=== PATIENT | male | born 1965 | race Caucasian/White ===

== ENCOUNTER 2018-06-02 13:55 | Inpatient (IN) ==
--- NOTE | 2018-06-02 15:45 | XR ---
EXAM DATE: 06/02/2018 3:36 PM EDT AGE/SEX: 53 years / Male INDICATIONS: Chest pain and shortness of breath. CLINICAL DATA: This is the patient's initial encounter. Patient reports that signs and symptoms have been present for 2 days and indicates a pain score of 2/10. MEDICAL/SURGICAL HISTORY: Congestive heart failure. None. COMPARISON: No prior exams available for comparison. FINDINGS: Minimal airspace disease in the right lung base. Cardiomediastinal contours are within normal limits. Bony thorax is intact. CONCLUSION: 1. Minimal right lung base airspace disease which may reflect atelectasis. Electronically signed by: Elijah Granados MD 06/02/2018 3:44 PM EDT
[2018-06-02] MEDS ORDERED: Vancomycin Inj 1 GM/200 ML PIGGYBACK IV.SIG ONE (15:52)
[2018-06-02] MEDS ORDERED: Piperacil/Tazo 3.375 GM Premix 50 ML IV.SIG ONE (15:52)
[2018-06-02] MEDS ORDERED: Vancomycin Inj 1,000 MG in Sodium Chlor 0.9% Inj 250 ML IV.SIG ONE (16:00)
--- NOTE | 2018-06-02 16:01 | ED ---
HPI General Chief complaint: Extremity Problem,Nontraumatic Stated complaint: Medical Complaint Time Seen by Provider: 06/02/18 15:13 Source: patient and family Mode of arrival: wheelchair Limitations: no limitations History of Present Illness HPI Narrative: Patient is a 53-year-old male that presents today with a CC of "congestive heart failure" that has led to shortness of breath, fatigue, and extensive draining edema of the lower extremities bilaterally. Patient states that his symptoms started 5 days ago and the swelling of his lower legs and feet have progressively gotten worse over the past 5 days. The patient also states that he has pain in the back of both lower extremities from the knees to the toes. The patient denies chest pain. The patient has a past medical history significant for type-II diabetes mellitus and congestive heart failure. The patient states that he has not taken any of his regular medications for the past 3 weeks due to financial limitations. The patient is here today with a friend that insisted he been seen here in the ER. The patient is visiting from [id number] and has no current medical providers in the local area. Pain is 8/ 10 on the right foot specifically. Pain in the left foot as well but not as significant. Related Data Home Medications Medication Instructions Recorded Confirmed aspirin 81 mg PO DAILY 06/02/18 06/02/18 atorvastatin [Lipitor] 40 mg PO DAILY 06/02/18 06/02/18 bumetanide 2 mg PO DAILY 06/02/18 06/02/18 carvedilol [Coreg] 25 mg PO BID 06/02/18 06/02/18 chlorthalidone 25 mg PO DAILY 06/02/18 06/02/18 folic acid 1 mg PO DAILY 06/02/18 06/02/18 lisinopril 5 mg PO DAILY 06/02/18 06/02/18 Allergies Allergy/AdvReac Type Severity Reaction Status Date / Time No Known Allergies Allergy Unverified 06/02/18 15:19 Review of Systems ROS: all other systems reviewed are negative [facility] Medical History Medical History Congestive heart failure (Acute) Edema (Acute) Type 2 diabetes mellitus (Acute) Surgical History Surgical History Hx of cholecystectomy (Acute) Social History Social History Substance History: No History of Abuse Second Hand Smoke Exposure: No Smoking Status: Former smoker Tobacco Type: Cigarettes How Often Do You Have a Drink Containing Alcohol: Monthly or less Recent Travel in [facility] within the Last 8 Weeks: No Recent Out of Country Travel within the Last 8 Weeks: No Immunization History Tetanus Immunization: Unsure Hx Influenza Vaccine This Season: No Exam Narrative Exam Narrative: GENERAL: Well groomed. SKIN: Focused skin assessment warm/dry. HEAD: Atraumatic. Normocephalic. EYES: Pupils equal and round. No scleral icterus. No injection or drainage. ENT: No nasal bleeding or discharge. Mucous membranes pink and moist. NECK: Trachea midline. No JVD. CARDIOVASCULAR: Regular rate and rhythm. No murmur appreciated. RESPIRATORY: No accessory muscle use. Clear to auscultation. Breath sounds equal bilaterally. GASTROINTESTINAL: Abdomen soft, non-tender, nondistended. Hepatic and splenic margins not palpable. MUSCULOSKELETAL: No obvious deformities. No clubbing. No cyanosis. No edema. Full ROM of the upper and lower extremities. Has significant swelling and necrotic infected skin on the sole of the foot, with about 3 different lessions , rangind from 5 - 10 cm in diameter. with 2+ pitting edema. Erythema with foul smell. 2+ pulses best heard with doppler due to swelling. left leg 1+ pitting edema. NEUROLOGICAL: Awake and alert. No obvious cranial nerve deficits. Motor grossly within normal limits. Normal speech. PSYCHIATRIC: Appropriate mood and affect; insight and judgment normal. Course Initial Documented Vital Signs Temperature 98.6 F 06/02/18 13:57 Pulse Rate 109 H 06/02/18 13:57 Respiratory Rate 20 06/02/18 13:57 Blood Pressure 96/60 L 06/02/18 13:57 Pulse Oximetry 98 06/02/18 13:57 Last Documented Vital Signs Temperature 98.6 F 06/02/18 13:57 Pulse Rate 112 H 06/02/18 16:00 Respiratory Rate 18 06/02/18 16:00 Blood Pressure 112/59 L 06/02/18 16:00 Pulse Oximetry 96 06/02/18 16:00 Medical Decision Making JACOBY Attestation JACOBY supervised visit: Yes Attestation: I, Dr. Douglass, have reviewed the advance practice practitioner's documentation and am in agreement, met with the patient face to face, made the diagnosis, and the medical decision making was done by me. *My assessment and Findings: Gangrene with subcutaneous gas of the right lower extremity. Patient has a history of diabetes mellitus that has gone untreated for several months. Patient also has a history of CHF with an ejection fraction of 35%. He is noted to be in acute kidney injury with a white blood cell count greater than 19,000. He has been started on vancomycin and Zosyn. Podiatry has been consulted. [facility] Patient was made aware that there is a good chance he may lose his foot and possibly more. MDM Narrative Medical decision making narrative: 53 yo male that presents to the ED for evaluation of leg swelling with possible infection to right foot and SOB. labs and imaging ordered. Labs and imaging showed gas in foot, YOLY, eleveted CRP, ESR , WBC elevation and left shift and tachycardia. Started on zosyn and vancomycin and lasix. Case discussed with my attending who recommends speaking with parboiler. Dr Kiser made aware of findings and will come and evaluate for surgery. NPO. Case discussed with Dr Manzanares who agrees to admission to his service. Dr Kiser came and evaluated the patient and will take him to OR now. Paperwork filled. My attending Dr Douglass agrees with plan. patient agrees to proceed with plan. Medical Screen Exam Complete: Yes Emergency Medical Condition: Yes Differential Diagnosis Differential Diagnosis: gangrene vs cellulitis vs CHF exacerbation vs DVT Medical Records Medical records reviewed: Yes I reviewed the patient's medical records. Lab Data Lab results reviewed: Yes I reviewed the patient's lab results. Lab results narrative: CRP and ESR elevated BNP in the 1000s Result diagrams: 06/02/18 16:20 06/02/18 16:20 Lab Results 06/02/18 06/02/18 06/02/18 Range/Units 16:20 16:20 16:20 WBC 19.8 H (4.0-11.0) th/mm3 RBC 2.82 L (4.50-5.90) mil/mm3 Hgb 7.8 L (13.0-17.0) gm/dL Hct 23.6 L (39.0-51.0) % MCV 83.8 (80.0-100.0) fL MCH 27.7 (27.0-34.0) pg MCHC 33.1 (32.0-36.0) % RDW 16.7 (11.6-17.2) % Plt Count 430 (150-450) th/mm3 MPV 7.1 (7.0-11.0) fL Neut % (Auto) 95.6 H (16.0-70.0) % Lymph % (Auto) 2.9 L (9.0-44.0) % Terry % (Auto) 1.4 (0.0-8.0) % Eos % (Auto) 0.0 (0.0-4.0) % Baso % (Auto) 0.1 (0.0-2.0) % Neut # (Auto) 18.9 H (1.8-7.7) th/mm3 Lymph # (Auto) 0.6 L (1.0-4.8) th/mm3 Terry # (Auto) 0.3 (0.0-0.9) th/mm3 Eos # (Auto) 0.0 (0.0-0.4) th/mm3 Baso # (Auto) 0.0 (0.0-0.2) th/mm3 WBC Differential . Differential Comment Auto diff final ESR (0-20) mm/hr PT 13.1 H (9.8-11.6) sec INR 1.3 Ratio APTT 32.7 H (24.3-30.1) sec Sodium 132 L (136-145) meq/L Potassium 3.8 (3.5-5.1) meq/L Chloride 100 (98-107) meq/L Carbon Dioxide 19.0 L (21.0-32.0) meq/L Anion Gap 13 (5-15) meq/L BUN 71 H (7-18) mg/dL Creatinine 2.24 H (0.60-1.30) mg/dL Estimated GFR 31 L (>89) mL/min Random Glucose 189 H (74-106) mg/dL Lactic Acid (0.4-2.0) mmol/L Calcium 7.7 L (8.5-10.1) mg/dL Total Bilirubin 0.7 (0.2-1.0) mg/dL AST 25 (15-37) U/L ALT 15 (12-78) U/L Alkaline Phosphatase 175 H (45-117) U/L Total Creatine Kinase 66 (39-308) U/L Troponin I Less than 0.02 L (0.02-0.05) ng/mL C-Reactive Protein (0.00-0.30) mg/dL B-Natriuretic Peptide (0-100) pg/mL Total Protein 6.9 (6.4-8.2) g/dL Albumin 0.9 L (3.4-5.0) g/dL 06/02/18 06/02/18 06/02/18 Range/Units 16:20 16:20 16:20 WBC (4.0-11.0) th/mm3 RBC (4.50-5.90) mil/mm3 Hgb (13.0-17.0) gm/dL Hct (39.0-51.0) % MCV (80.0-100.0) fL MCH (27.0-34.0) pg MCHC (32.0-36.0) % RDW (11.6-17.2) % Plt Count (150-450) th/mm3 MPV (7.0-11.0) fL Neut % (Auto) (16.0-70.0) % Lymph % (Auto) (9.0-44.0) % Terry % (Auto) (0.0-8.0) % Eos % (Auto) (0.0-4.0) % Baso % (Auto) (0.0-2.0) % Neut # (Auto) (1.8-7.7) th/mm3 Lymph # (Auto) (1.0-4.8) th/mm3 Terry # (Auto) (0.0-0.9) th/mm3 Eos # (Auto) (0.0-0.4) th/mm3 Baso # (Auto) (0.0-0.2) th/mm3 WBC Differential Differential Comment ESR (0-20) mm/hr PT (9.8-11.6) sec INR Ratio APTT (24.3-30.1) sec Sodium (136-145) meq/L Potassium (3.5-5.1) meq/L Chloride (98-107) meq/L Carbon Dioxide (21.0-32.0) meq/L Anion Gap (5-15) meq/L BUN (7-18) mg/dL Creatinine (0.60-1.30) mg/dL Estimated GFR (>89) mL/min Random Glucose (74-106) mg/dL Lactic Acid 1.9 (0.4-2.0) mmol/L Calcium (8.5-10.1) mg/dL Total Bilirubin (0.2-1.0) mg/dL AST (15-37) U/L ALT (12-78) U/L Alkaline Phosphatase (45-117) U/L Total Creatine Kinase (39-308) U/L Troponin I (0.02-0.05) ng/mL C-Reactive Protein 17.60 H (0.00-0.30) mg/dL B-Natriuretic Peptide 1121 H (0-100) pg/mL Total Protein (6.4-8.2) g/dL Albumin (3.4-5.0) g/dL 06/02/18 06/02/18 Range/Units 16:20 16:20 WBC (4.0-11.0) th/mm3 RBC (4.50-5.90) mil/mm3 Hgb (13.0-17.0) gm/dL Hct (39.0-51.0) % MCV (80.0-100.0) fL MCH (27.0-34.0) pg MCHC (32.0-36.0) % RDW (11.6-17.2) % Plt Count (150-450) th/mm3 MPV (7.0-11.0) fL Neut % (Auto) (16.0-70.0) % Lymph % (Auto) (9.0-44.0) % Terry % (Auto) (0.0-8.0) % Eos % (Auto) (0.0-4.0) % Baso % (Auto) (0.0-2.0) % Neut # (Auto) (1.8-7.7) th/mm3 Lymph # (Auto) (1.0-4.8) th/mm3 Terry # (Auto) (0.0-0.9) th/mm3 Eos # (Auto) (0.0-0.4) th/mm3 Baso # (Auto) (0.0-0.2) th/mm3 WBC Differential Differential Comment ESR Greater than 140 H (0-20) mm/hr PT (9.8-11.6) sec INR Ratio APTT (24.3-30.1) sec Sodium (136-145) meq/L Potassium (3.5-5.1) meq/L Chloride (98-107) meq/L Carbon Dioxide (21.0-32.0) meq/L Anion Gap (5-15) meq/L BUN (7-18) mg/dL Creatinine (0.60-1.30) mg/dL Estimated GFR (>89) mL/min Random Glucose Cancelled (74-106) mg/dL Lactic Acid (0.4-2.0) mmol/L Calcium (8.5-10.1) mg/dL Total Bilirubin (0.2-1.0) mg/dL AST (15-37) U/L ALT (12-78) U/L Alkaline Phosphatase (45-117) U/L Total Creatine Kinase (39-308) U/L Troponin I (0.02-0.05) ng/mL C-Reactive Protein (0.00-0.30) mg/dL B-Natriuretic Peptide (0-100) pg/mL Total Protein (6.4-8.2) g/dL Albumin (3.4-5.0) g/dL Imaging Data Attestation: I personally reviewed and interpreted this imaging study as follows : Radiologist's impression: Chest X-Ray 06/02/18 15:19 CONCLUSION: 1. Minimal right lung base airspace disease which may reflect atelectasis. Venous Doppler Study 06/02/18 15:46 CONCLUSION: 1. No sonographic evidence of lower extremity DVT. 2. Bilateral lower extremity subcutaneous edema. 3. Multiple lymph nodes seen in both groins, some of which are abnormally enlarged. Recommend clinical correlation. Foot X-Ray 06/02/18 15:52 CONCLUSION: Extensive subcutaneous air. No bone fracture or dislocation ECG Data EKG Prior to Arrival: No Attestation: I personally reviewed and interpreted this ECG as follows: Interpretation: EKG shows sinus tachycardia with no sign of acute ishcemia. Read by me and attending. Discharge Plan Discharge Disposition Patient Disposition: 30 Still Patient Discharge Details Diagnosis: Gangrene, CHF (congestive heart failure), YOLY (acute kidney injury), Sepsis Physicians Team ED Provider: Ben Douglass ED Midlevel Provider: Anil Magana Primary Care Provider: Primary Care Chastity Ledesma Attending Provider: Jayden Manzanares Other Providers: Jean Dexter Discharge Interventions Interventions: Vital Signs Last Done: 06/02/18 16:00 Status ED Status: Admitted Patient
--- NOTE | 2018-06-02 16:25 | US ---
EXAM DATE: 06/02/2018 4:20 PM EDT AGE/SEX: 53 years / Male INDICATIONS: Bilateral leg swelling. CLINICAL DATA: This is the patient's initial encounter. Patient reports that signs and symptoms have been present for 1 month and indicates a pain score of 5/10. MEDICAL/SURGICAL HISTORY: . Bilateral leg swelling. None. COMPARISON: No prior exams available for comparison. TECHNIQUE: Venous ultrasound of both lower extremities was performed from the inguinal ligament to t he proximal calf. Real-time, color Doppler and spectral tracing, compression and augmentation techni ques were used. FINDINGS: Right Leg: Normal compression of the deep venous system from the inguinal region to the proximal chace f. No echogenic clot is seen. Normal response of the venous system to augmentation and respiration. Left Leg: Normal compression of the deep venous system from the inguinal region to the proximal calf . No echogenic clot is seen. Normal response of the venous system to augmentation and respiration. Other: Multiple lymph nodes seen in both groins, the largest measuring 5.5 x 1.9 x 4.4 cm on the rig ht. Bilateral lower extremity subcutaneous edema is noted. CONCLUSION: 1. No sonographic evidence of lower extremity DVT. 2. Bilateral lower extremity subcutaneous edema. 3. Multiple lymph nodes seen in both groins, some of which are abnormally enlarged. Recommend clinic al correlation. Electronically signed by: Maria Alejandra Lemus MD 06/02/2018 4:24 PM EDT
[2018-06-02 16:41] LABS: Baso % (Auto) 0.1 % (0.0-2.0); Hematocrit 23.6 % (39.0-51.0); Hemoglobin 7.8 gm/dL (13.0-17.0); Lymph # (Auto) 0.6 th/mm3 (1.0-4.8); Lymph % (Auto) 2.9 % (9.0-44.0); Mean Corpuscular HGB Conc 33.1 % (32.0-36.0); Mean Corpuscular Hemoglobin 27.7 pg (27.0-34.0); Mean Corpuscular Volume 83.8 fL (80.0-100.0); Mean Platelet Volume 7.1 fL (7.0-11.0); Mono # (Auto) 0.3 th/mm3 (0.0-0.9); Mono % (Auto) 1.4 % (0.0-8.0); Neut # (Auto) 18.9 th/mm3 (1.8-7.7); Neut % (Auto) 95.6 % (16.0-70.0); Platelet Count 430 th/mm3 (150-450); Red Blood Count 2.82 mil/mm3 (4.50-5.90); Red Cell Distribution Width 16.7 % (11.6-17.2); White Blood Count 19.8 th/mm3 (4.0-11.0)
[2018-06-02 16:52] LABS: Activated Partial Thrombo Time 32.7 sec (24.3-30.1); INR 1.3 Ratio; Prothrombin Time 13.1 sec (9.8-11.6)
--- NOTE | 2018-06-02 17:01 | XR ---
EXAM DATE: 06/02/2018 4:59 PM EDT AGE/SEX: 53 years / Male INDICATIONS: Right foot pain, swelling, open sores for 2 weeks CLINICAL DATA: This is the patient's initial encounter. Patient reports that signs and symptoms have been present for 2 weeks and indicates a pain score of 8/10. MEDICAL/SURGICAL HISTORY: None. None. COMPARISON: No prior exams available for comparison. FINDINGS: There is diffuse subcutaneous air throughout the right foot. No active ostial lysis is identified CONCLUSION: Extensive subcutaneous air. No bone fracture or dislocation Electronically signed by: Vernon Abraham MD 06/02/2018 5:00 PM EDT
[2018-06-02 17:08] LABS: Alanine Aminotransferase 15 U/L (12-78); Albumin 0.9 g/dL (3.4-5.0); Anion Gap 13 meq/L (5-15); Aspartate Aminotransferase 25 U/L (15-37); Blood Urea Nitrogen 71 mg/dL (7-18); Calcium 7.7 mg/dL (8.5-10.1); Chloride 100 meq/L (98-107); Glomerular Filtration Rate 31 mL/min (>89); Glucose,Random 189 mg/dL (74-106); Potassium 3.8 meq/L (3.5-5.1); Sodium 132 meq/L (136-145)
[2018-06-02 17:12] LABS: Alkaline Phosphatase 175 U/L (45-117); Total Protein 6.9 g/dL (6.4-8.2)
[2018-06-02 17:16] LABS: Creatine Kinase 66 U/L (39-308)
[2018-06-02] MEDS ORDERED: Bupivacaine PF 0.25% Inj 30 ML Vial ONE (17:20)
[2018-06-02] MEDS ORDERED: Etomidate Inj 20 MG/10 ML Ampul IV.PUSH ONE (17:43)
[2018-06-02] MEDS: Sod Chloride 0.9% Inj 1,000 ML IV.CONT SCH (17:56)
[2018-06-02] MEDS ORDERED: Bisacodyl 10 MG Supp RECTAL PRN (17:57)
[2018-06-02] MEDS ORDERED: Acetaminophen 325 MG Tablet PO PRN (17:57)
[2018-06-02] MEDS ORDERED: Phenylephrine/NS 1000 MCG/10ML Syringe IV.PUSH ONE (18:02)
[2018-06-02] MEDS ORDERED: Vancomycin Consult Pharmacy OTHER PRN (18:11)
[2018-06-02] MEDS ORDERED: Norepinephrine Inj 4 MG/4 ML Ampul ONE ×2 (18:38→19:55)
[2018-06-02] MEDS ORDERED: Sodium Bicarbonate 8.4% Inj 50 MEQ/50 ML Syringe ONE ×2 (18:43→19:43)
[2018-06-02] MEDS ORDERED: Calcium Chloride Inj 1 GM/10 ML Syringe ONE (18:44)
[2018-06-02] MEDS ORDERED: Propofol 1000 mg/100 ml Inj 1,000 MG/100 ML BOTTLE ONE (19:25)
[2018-06-02 19:30] LABS: ABG Base Excess -14.5 mmol/L (-2-2); ABG PCO2 45 mmHg (38-42); ABG PO2 111 mmHG (61-120)
--- NOTE | 2018-06-02 19:50 | P.BOP ---
- Preoperative Diagnosis (1) Gas gangrene of foot - Postoperative Diagnosis (1) Gas gangrene of foot Date of procedure: 06/02/18 Procedure: Incision drainage debridement foot ankle and distal leg, right Anesthesia: GETA Surgeon: Jose M Kiser DPM Estimated blood loss (mL): 50 (ml) Condition: critical Disposition: ICU (Spoke directly with critical care admitting regarding patient's condition)
[2018-06-02] MEDS ORDERED: Vancomycin Inj 2,000 MG in Sodium Chlor 0.9% Inj 500 ML IV.SIG ONE (20:00)
[2018-06-02] MEDS ORDERED: fentaNYL Citrate Inj 100 MCG/2 ML Ampul ONE (20:11)
--- NOTE | 2018-06-02 20:22 | P.CONCC ---
History of Present Illness Primary Care Provider: No Primary Care Physician History of Present Illness: 53-year-old male presented to emergency department today with complaints of shortness of breath, fatigue, and extensive draining edema of the lower extremities bilaterally. Per chart review his symptoms started 5 days ago and the swelling of his lower legs and feet have progressively gotten worse over the past 5 days. The patient also has had pain in the back of both lower extremities from the knees to the toes. He denied chest pain. He has a history of type-II diabetes mellitus and congestive heart failure. He has not taken any of his regular medications for the past 3 weeks due to financial limitations. During the examination in the emergency department he was found to have gangrene of the right foot and was emergently taken to operating room for an incision and drainage with debridement of foot and ankle. Postoperatively he remains intubated and was admitted to ICU for critical care management. Review of Systems unobtainable due to endotracheal tube PMFSH - History History Provided By: Patient - Medical History Medical History: Medical History (Last Reviewed 06/02/18 @ 16:26 by DEMARIO Marmolejo) Congestive heart failure Edema Type 2 diabetes mellitus - Surgical History Surgical History: Surgical History (Last Reviewed 06/02/18 @ 16:26 by DEMARIO Marmolejo) Hx of cholecystectomy - Tobacco History Second Hand Smoke Exposure: No Tobacco Use In Past 30 Days: No Smoking Status: Former smoker Tobacco Type: Cigarettes - Alcohol History How Often Do You Have a Drink Containing Alcohol: Monthly or less - Substance Use History Substance History: No History of Abuse - Travel History Recent Travel in the [place] Within the Last 8 Weeks: No Recent Travel Out of the Country Within the Last 8 Weeks: No - Immunization History Tetanus Immunization: Unsure Hx Influenza Vaccine This Season: No Medications and Allergies Active Medications: Active Medications Acetaminophen (Tylenol) 650 mg PO Q4H PRN PRN Reason: Temp > 100.4 Al Hydroxide/Mg Hydroxide (Milk Of Magnesia Liq) 30 ml PO Q12H PRN PRN Reason: Mild Constipation Bisacodyl (Dulcolax Supp) 10 mg RECTAL DAILY PRN PRN Reason: SEVERE CONSITIPATION Dextrose (D50w Vial) 50 ml IV.PUSH UNSCH PRN PRN Reason: PER HYPOGLYCEMIA PROTOCOL Glucagon (Glucagon Inj) 1 mg OTHER UNSCH PRN PRN Reason: for Hypoglycemia Protocol Sodium Chloride (Ns Inj) 1,000 mls @ 42 mls/hr IV.CONT .[id number] LINDA Last Admin: 06/02/18 17:56 Dose: 42 mls/hr Piperacillin/Tazobactam/Dextrose (Zosyn 2.25 Gm Premix) 50 mls @ 100 mls/hr IV.SIG Q6H LINDA Vancomycin HCl 2,000 mg/ (Sodium Chloride) 520 mls @ 250 mls/hr IV.SIG ONCE ONE Stop: 06/02/18 22:04 Sodium Chloride (Ns Inj) 1,000 mls @ 0 mls/hr IV.SIG BOLUS LINDA Stop: 06/04/18 20:31 Insulin Aspart (Novolog Insulin Correctional Sugar Inj) 0 unit SQ ACHS LINDA; Protocol Lactulose (Lactulose Liq) 30 ml PO DAILY PRN PRN Reason: SEVERE CONSITIPATION Ondansetron HCl (Zofran Inj) 4 mg IV.PUSH Q6H PRN PRN Reason: NAUSEA OR VOMITING Pharmacy Profile Note (Vancomycin Consult Pharmacy) 1 each OTHER UNSCH PRN PRN Reason: Pharmacy to dose Senna/Docusate Sodium (Bee-Colace) 1 tab PO BID LINDA Sennosides (Senokot) 17.2 mg PO Q12H PRN PRN Reason: Moderate Constipation Sodium Chloride (Ns Flush) 2 ml IV.FLUSH UNSCH PRN PRN Reason: FLUSH AFTER USING IV ACCESS Allergies Allergy/AdvReac Type Severity Reaction Status Date / Time No Known Allergies Allergy Unverified 06/02/18 15:19 Home Medications Medication Instructions Recorded Confirmed Type aspirin 81 mg PO DAILY 06/02/18 06/02/18 History atorvastatin [Lipitor] 40 mg PO DAILY 06/02/18 06/02/18 History bumetanide 2 mg PO DAILY 06/02/18 06/02/18 History carvedilol [Coreg] 25 mg PO BID 06/02/18 06/02/18 History chlorthalidone 25 mg PO DAILY 06/02/18 06/02/18 History folic acid 1 mg PO DAILY 06/02/18 06/02/18 History lisinopril 5 mg PO DAILY 06/02/18 06/02/18 History Physical Exam Vital signs: Vital Signs 06/02/18 13:57 06/02/18 16:00 06/02/18 20:11 Temperature 98.6 F Pulse Rate 109 H 112 H Respiratory Rate 20 18 14 Blood Pressure 96/60 L 112/59 L Pulse Oximetry 98 96 99 Intake & Output 06/02/18 06/02/18 06/03/18 06:59 18:59 06:59 Intake Total 700 / 700 Output Total 50 / 50 Balance 650 / 650 Weight 74.843 kg Intake: Anesthesia Amount 700 / 700 Output: Estimated Blood Loss 50 / 50 - Constitutional moderate distress - Routine HEENT Exam Head: Present: normocephalic, atraumatic Eye: Present: PERRL, normal accommodation ENT: Present: mucous membranes moist - Routine Neck Exam Present: supple. Absent: JVD, carotid bruit - Routine Respiratory Exam Present: patient mechanically ventilated. Absent: accessory muscle use, rhonchi , stridor, wheezes, crackles - Routine Cardiovascular Exam Present: RRR, S1, S2 - Routine Abdominal Exam Present: soft, normoactive bowel sounds. Absent: tenderness, distended - Routine Extremities Exam Present: edema. Absent: cyanosis, clubbing Comments: There is post IND debridement of the right foot and ankle - Routine Skin Exam Present: gangrene. Absent: cyanosis, erythema - Routine Neurological Exam Present: moving all extremities Sedated and intubated - Urinary Catheter Management Indwelling Urethral Catheter Cath placed during this visit: yes Reason for continuing: Hourly intake/output Insertion date: 06/02/18 Insertion time: 19:38 Septic Shock Reassessment Septic shock perfusion: reassessment completed Assessment and Plan - Assessment and Plan Plan: Respiratory failure -Postoperative -Vent bundle -DuoNeb's as needed -SBT and attempt to wean off but hemodynamically stable Sepsis -Gangrene of the right foot -Broad-spectrum antibiotic -Follow-up cultures and de-escalate -Status post I&D and debridement -Infectious disease consultation Anemia -Blood loss anemia -Transfuse 3 units of PRBC now -Monitor H&H and transfuse to keep hemoglobin above 8 Hypotension -Sepsis -Blood loss -IV fluid resuscitation -Blood transfusion -Levophed as needed to keep MAP above 65 Acute kidney injury -Strict I's and O's -IV fluid hydration -Monitor electrolytes and creatinine level Diabetes mellitus -Insulin sliding scale DVT GI prophylaxis -Teds SCDs -Heparin subcu -Pepcid 35 minutes of critical
[2018-06-02] MEDS: Sod Chloride 0.9% Inj 1,000 ML IV.SIG SCH ×3 (20:45→23:00)
[2018-06-02] MEDS: fentaNYL 10 mcg/mL Premix Drip 2,500 MCG/250 ML BAG IV.SIG PRN (20:50)
[2018-06-02] MEDS: Midazolam 50 MG/50 ML Inj 50 MG/50 ML BAG IV.CONT PRN (20:51)
[2018-06-02 21:21] LABS: ABG Base Excess -6.8 mmol/L (-2-2); ABG PCO2 33 mmHg (38-42); ABG PO2 152 mmHg (61-120)
--- NOTE | 2018-06-02 21:26 | MP ---
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 PROCEDURE PERFORMED: Expansile incision and drainage of foot, ankle and distal leg. INDICATIONS: The patient is critical, intubated, sedated, and will be admitted to the critical care team for further treatment of his multiple medical issues and sepsis. ESTIMATED BLOOD LOSS: Less than 50 mL ANESTHESIA: General. Culture taken. Tissue sent for pathological analysis. DISPOSITION: Admit to unit, likely will need more surgery, if not [id number] amputation. INJECTABLES: None. IMPLANTABLES: None. JUSTIFICATION FOR PROCEDURE: A 53-year-old male with an unclear history; however, it appears he has chronic ulcerations that have become a severe issue in the last 5 days. He admits noncompliance. The patient was educated on the severity of the infection, high likelihood of loss of limb, and possible complication from sepsis resulting in . The patient wished for limb salvage efforts therefore, we decided to move forward with an emergent incision and drainage. Vascular consultation was made for routine evaluation should the foot improve after the surgery. However, prognosis is poor. PROCEDURE IN DETAIL: Under mild sedation, the patient was brought to the operating room, placed on the operating table in supine position. Following the induction of general anesthesia, the right lower extremity was scrubbed, prepped and draped in the usual aseptic fashion. The foot was elevated and examined. There was noted to be a necrotic fourth and fifth digit, necrotic plantar lateral sulcus of the forefoot, necrotic plantar medial arch, edematous dorsum of the foot with obvious odor. An incision was made at the level of the fourth interspace coursing along the plantar arch up to the level of the medial malleolus. Expansile debridement took place down to the deep fascia. There was noted to be purulent traveling along the flexor digitorum longus and the flexor hallucis longus. This sheath was then opened at the level of the distal ankle. The posterior tibial tendon was then identified. There was noted to be purulence within the sheath. Further incision was made approximately 8 cm proximal to the ankle in which the tendon sheath was then explored and seemed to stop just at this level without any proximal spread of infection. Sharp and blunt dissection was carried down superficial to the fascia along the extensor tendons of the dorsum of the foot, the plantar aspect of the fat pad, along the lateral aspect of the fifth metatarsal, along the peroneal tendons. All of these tendon sheaths were explored. There was noted to be no proximal lateral spread at the level beyond the fifth metatarsal base. There was noted to be necrosis and purulence at the level of the distal hallux with likely osteomyelitic findings at this level. A secondary incision was then made over the first interspace dorsum of the foot. There was noted to be purulence in the abscess that was loculated with air bubbles within the first interspace. This was evacuated. All nonviable tissue was then debrided leaving exposed plantar fascia, posterior, lateral and medial ankle and the first interspace. The wound was then flushed with copious amounts of normal saline. Deep cultures taken. The wound was then packed open. Moderate bleeding noted however obvious clinical vascular disease present. The patient suffered brief hypotension within the operating room, ABG was performed by anesthesia, revealing an acidotic state. The patient received a Walters and an arterial line as well as a central line. I spoke with admitting ICU team regarding the patient's intraoperative findings and general medical condition. We will continue to follow along. However, limb salvage efforts have likely been exhausted at this point, high chance of needing a [id number] amputation pending the patient's medical progression. LITO Parker/kori , 08:02 PM , 08:09 PM JOSEPH
[2018-06-02] MEDS: Insulin NovoLOG Aspart Correctional Sugar Inj SQ SCH (21:37)
[2018-06-02] MEDS: Senna/Docusate Sodium 8.6/50 MG Tablet PO SCH (21:37)
--- NOTE | 2018-06-02 22:02 | MB ---
cc: Jose M Leonard DPM DATE: 06/02/2018 REASON FOR CONSULTATION: Right foot gas gangrene. HISTORY OF PRESENT ILLNESS: This is a 53-year-old male who noticed increased redness, pain, drainage over the last week. He is not the best historian regarding his lower extremity. He admits that he has a history of congestive heart failure. He has not been taking his medications. He is a known diabetic. He has not been taking his medications for the past 3 weeks due to financial limitations. The patient is feeling very ill. The patient is not from this area. [place]. The patient is explaining he has 8/10 right foot pain. Left foot pain is noted, but not as significant. PAST MEDICAL HISTORY: Congestive heart failure, edema, type 2 diabetes. PAST SURGICAL HISTORY: History of cholecystectomy. SOCIAL HISTORY: Former smoker. ALLERGIES: NONE LISTED. OUTPATIENT MEDICATIONS: Unable to review. INPATIENT MEDICATIONS: While in the ED, the patient did receive vancomycin and Zosyn. Please see complete med list in the chart. PHYSICAL EXAMINATION: VITAL SIGNS: Temperature 98.6, pulse rate 112, respiratory rate 20, blood pressure 96/60. He is saturating 98% on room air. GENERAL: This is an alert and oriented gentleman. He is in no acute distress, but he does not feel well. He does not admit to any chest pain or vision changes. EXTREMITIES: Right lower extremity, there is obvious foul odor. There is necrosis of the hallux plantar aspect of the 5th MPJ, medial arch as well as the lateral hindfoot. Bilateral superficial bulla is noted of the plantar heel. Upon pressure to the foot, there is extreme pain. Pulses are hard to palpate. There is noted ischemic changes to the lesser digits of the right foot. Upon palpating the proximal ankle, there is no obvious palpable gas within the tissue. Left lower extremity aside from the bulla of the posterior heel, there appears to be no obvious deep signs of infection. No instability noted upon range of motion of the bilateral feet. There is chronic edematous changes of the patient's bilateral pretibial area. LABORATORY DATA: White blood cell 19.8, hemoglobin and hematocrit 7 and 23, platelet count is 430. ESR is 140. Coagulation profile: PT 13.1, INR 1.3. Blood gas: ABG pH 7.1, pCO2 of 45, pO2 111, HCO3 13. Sodium 132, potassium 3.8, chloride 100, CO2 19, BUN 71, creatinine 2.24. Random glucose is 189, estimated GFR is 31. BNP 1121. C-reactive protein 17.6, alkaline phosphatase 175. Blood culture and wound culture ordered. IMAGING: Chest x-ray: Minimal right lung base airspace disease may reflect atelectasis. X-ray of the right foot: Extensive subcutaneous air of the dorsal and plantar foot. Venous Doppler: No evidence of DVT. Multiple inflamed lymph nodes noted. ASSESSMENT AND PLAN: Right foot gas gangrene possible including the ankle and distal leg. I reviewed the case with the patient. The patient wished for limb salvage efforts to be exhausted. I let him know that there is a high likelihood of need for below-knee amputation. We decided to move forward with an emergent incision and drainage, debridement to relieve and debulked the infection. I informed the patient of risks and benefits of surgery including, but not limited to, loss of limb, further sepsis leading to loss of life. The patient understood, and then we left for surgery. LITO Parker/haile , 07:57 PM , 08:05 PM
[2018-06-03] LABS: Hemoglobin 5.2 gm/dL (13.0-17.0)
[2018-06-03] MEDS ORDERED: Sodium Chlor 0.9% Inj 250 ML IV.SIG SCH
[2018-06-03] MEDS: Piperacil/Tazo 2.25 GM Premix 50 ML IV.SIG SCH ×3 (00:19→15:40)
[2018-06-03] MEDS: Heparin - SQ 10,000 UNITS/ML Vial SQ SCH ×3 (05:23→21:29)
[2018-06-03 06:10] LABS: Baso % (Auto) 0.2 % (0.0-2.0); Hematocrit 24.3 % (39.0-51.0); Hemoglobin 8.3 gm/dL (13.0-17.0); Lymph # (Auto) 1.3 th/mm3 (1.0-4.8); Lymph % (Auto) 6.9 % (9.0-44.0); Mean Corpuscular HGB Conc 34.1 % (32.0-36.0); Mean Corpuscular Hemoglobin 28.1 pg (27.0-34.0); Mean Corpuscular Volume 82.4 fL (80.0-100.0); Mean Platelet Volume 6.8 fL (7.0-11.0); Mono # (Auto) 0.9 th/mm3 (0.0-0.9); Mono % (Auto) 4.8 % (0.0-8.0); Neut % (Auto) 88.1 % (16.0-70.0); Platelet Count 276 th/mm3 (150-450); Red Blood Count 2.95 mil/mm3 (4.50-5.90); Red Cell Distribution Width 17.1 % (11.6-17.2); White Blood Count 19.3 th/mm3 (4.0-11.0)
[2018-06-03 06:48] LABS: Calcium 6.7 mg/dL (8.5-10.1); Carbon Dioxide 19.4 meq/L (21.0-32.0); Potassium 3.4 meq/L (3.5-5.1)
[2018-06-03 07:02] LABS: Total Protein 5.4 g/dL (6.4-8.2)
[2018-06-03] MEDS: Midazolam 50 MG/50 ML Inj 50 MG/50 ML BAG IV.CONT PRN ×2 (07:11→21:40)
[2018-06-03] MEDS: Insulin NovoLOG Aspart Correctional Sugar Inj SQ SCH ×4 (08:00→21:40)
--- NOTE | 2018-06-03 09:47 | P.PNCC ---
Subjective Subjective Remarks/Hospital Course: 53-year-old male presented to emergency department today with complaints of shortness of breath, fatigue, and extensive draining edema of the lower extremities bilaterally. Per chart review his symptoms started 5 days ago and the swelling of his lower legs and feet have progressively gotten worse over the past 5 days. The patient also has had pain in the back of both lower extremities from the knees to the toes. He denied chest pain. He has a history of type-II diabetes mellitus and congestive heart failure. He has not taken any of his regular medications for the past 3 weeks due to financial limitations. During the examination in the emergency department he was found to have gangrene of the right foot and was emergently taken to operating room for an incision and drainage with debridement of foot and ankle. Postoperatively he remains intubated and was admitted to ICU for critical care management. SUBJ: s/p Incision drainage debridement foot ankle and distal leg, for gas gangrene. Remains in septic shock on Levophed. Remains intubated sedated. Currently on vancomycin and Zosyn I have added clindamycin. Cultures and wound cultures pending . Vascular surgery consult also pending. Received 2 units PRBC for hemoglobin of 5.3 Objective Vital Signs / I&O: Vital Signs 06/02/18 13:57 06/02/18 16:00 06/02/18 20:00 Temperature 98.6 F 99.1 F Pulse Rate 109 H 112 H 92 H Respiratory Rate 20 18 14 Blood Pressure 96/60 L 112/59 L 157/76 H Pulse Oximetry 98 96 100 06/02/18 20:11 06/02/18 23:40 06/03/18 00:00 Temperature 94.5 F L Pulse Rate 70 Respiratory Rate 14 14 14 Blood Pressure 138/60 Pulse Oximetry 99 100 100 06/03/18 02:02 06/03/18 03:09 06/03/18 03:25 Temperature 95 F L 94.6 F L Pulse Rate 67 69 Respiratory Rate 14 14 14 Blood Pressure 121/55 L 125/58 L Pulse Oximetry 100 100 100 06/03/18 03:44 06/03/18 04:00 06/03/18 08:37 Temperature 94.5 F L 96.0 F L Pulse Rate 70 70 Respiratory Rate 14 14 14 Blood Pressure 124/57 L 122/86 Pulse Oximetry 99 100 100 Intake & Output 06/02/18 06/03/18 06/03/18 18:59 06:59 18:59 Intake Total 5820 / 5820 Output Total 1050 / 1050 Balance 4770 / 4770 Weight 74.843 kg 91.6 kg Intake: IV 3920 / 3920 Versed Inj 50 mg In 50 ml @ 2 50 / 50 MG/HR 2 mls/hr IV.CONT TITRATE PRN Rx#:[id number] Zosyn 2.25 GM Premix 50 ML @ 100 / 100 100 mls/hr IV.SIG Q6H LINDA Rx#: [id number] NS Inj 1,000 ML @ Wide Open IV. 3000 / 3000 SIG BOLUS LINDA Rx#:[id number] NS Inj 250 ML @ 15 mls/hr IV. 250 / 250 SIG ONCE LINDA Rx#:[id number] Vancomycin Inj 2,000 MG In NS 520 / 520 Inj 500 ML @ 250 mls/hr IV.SIG ONCE ONE Rx#:[id number] Anesthesia Amount 700 / 700 Intake (Blood Product) Amt 1200 / 1200 Rbc As-3 Leukoreduced Unit 400 / 400 [id number] Rbc As-3 Leukoreduced Unit 400 / 400 [id number] Rbc Cp2d Leukoreduced Unit 400 / 400 [id number] Output: Estimated Blood Loss 50 / 50 Urine Amount (Catheter) 1000 / 1000 Indwelling Urethral Catheter 1000 / 1000 Result Diagrams: 06/03/18 05:55 06/03/18 05:55 Objective Remarks: - Constitutional Intubated, sedated - Routine HEENT Exam Head: Present: normocephalic, atraumatic Eye: Present: PERRL, ENT: Orotracheally intubated - Routine Neck Exam Present: supple. Absent: JVD, carotid bruit - Routine Respiratory Exam Present: patient mechanically ventilated. No rhonchi, stridor, wheezes, crackles - Routine Cardiovascular Exam Present: RRR, S1, S2. Currently hypotensive on 1 mcg/min of Levophed - Routine Abdominal Exam Present: soft, normoactive bowel sounds. Absent: tenderness, distended - Routine Extremities Exam Status post I/D debridement of the right foot and ankle, new dressing placed by Podiatry. L heel ulcer - Routine Neurological Exam Present: moving all extremities. Sedated and intubated Assessment and Plan - Assessment and Plan Plan: A/P Neuro: -Versed and fentanyl for sedation and vent synchrony -Pain adequately controlled Resp: Post Respiratory failure -Vent bundle -DuoNeb's as needed -Await vascular surgery consult may need back to the OR CVS/ID Septic shock Gangrene of the right foot -Broad-spectrum antibiotic with vancomycin and Zosyn, and clindamycin -Follow-up cultures -Status post I&D and debridement -Vascular surgery consult pending, may need BKA -Infectious disease consultation -Continue IV fluid and blood product resuscitation -Levophed as needed to keep MAP above 65 HEME Blood loss anemia -s/p 3 units of PRBC now -Monitor H&H and transfuse to keep hemoglobin above 8 : Acute kidney injury -Strict I's and O's -IV fluid hydration, additional 1 L fluid bolus -Monitor electrolytes and creatinine level -Creatinine has improved from 2.2-1.8 GI: -NPO, IV famotidine Endo: Diabetes mellitus -Insulin sliding scale DVT GI prophylaxis -Teds SCDs -Heparin subcu -Pepcid 35 minutes of CCT Patient at this time remains severely septic shock from gangrene of the right foot. He has multiorgan dysfunction including hypotension leukocytosis anemia and renal failure. Vascular surgery and infectious disease consults are pending. Code Status: Full
[2018-06-03] MEDS: Famotidine PF Inj 20 MG/2 ML Vial IV.PUSH SCH ×2 (09:57→21:29)
[2018-06-03] MEDS: Senna/Docusate Sodium 8.6/50 MG Tablet PO SCH ×2 (09:57→21:29)
[2018-06-03] MEDS ORDERED: Sod Chloride 0.9% Inj 1,000 ML IV.SIG SCH (10:15)
[2018-06-03] MEDS ORDERED: Clindamycin 900 mg/NS Premix 900 MG/50 ML PIGGYBACK IV.SIG SCH (11:00)
[2018-06-03] MEDS ORDERED: Calcium Gluconate Inj 2 GM in Sodium Chlor 0.9% Inj 100 ML IV.SIG ONE (12:00)
[2018-06-03 14:46] LABS: INR 1.4 Ratio
--- NOTE | 2018-06-03 15:06 | P.PNPOD ---
Subjective Interval history: s/p Right foot I and D secondary to gangrene. DOS 06/03/18 Dr Leonard. Seen at bedside with nursing staff, intubated. Physical Exam Vital signs: Vital Signs 06/02/18 16:00 06/02/18 20:00 06/02/18 20:11 Temperature 99.1 F Pulse Rate 112 H 92 H Respiratory Rate 18 14 14 Blood Pressure 112/59 L 157/76 H Pulse Oximetry 96 100 99 06/02/18 23:40 06/03/18 00:00 06/03/18 02:02 Temperature 94.5 F L 95 F L Pulse Rate 70 67 Respiratory Rate 14 14 14 Blood Pressure 138/60 121/55 L Pulse Oximetry 100 100 100 06/03/18 03:09 06/03/18 03:25 06/03/18 03:44 Temperature 94.6 F L 94.5 F L Pulse Rate 69 70 Respiratory Rate 14 14 14 Blood Pressure 125/58 L 124/57 L Pulse Oximetry 100 100 99 06/03/18 04:00 06/03/18 08:00 06/03/18 08:37 Temperature 96.0 F L 98 F Pulse Rate 70 84 Respiratory Rate 14 14 14 Blood Pressure 122/86 128/54 L Pulse Oximetry 100 100 100 06/03/18 10:00 06/03/18 12:19 Temperature Pulse Rate 96 H Respiratory Rate 14 Blood Pressure Pulse Oximetry 100 Intake & Output 06/02/18 06/03/18 06/03/18 18:59 06:59 18:59 Intake Total 5820 / 5820 Output Total 1050 / 1050 Balance 4770 / 4770 Weight 74.843 kg 91.6 kg Intake: IV 3920 / 3920 Versed Inj 50 mg In 50 ml @ 2 50 / 50 MG/HR 2 mls/hr IV.CONT TITRATE PRN Rx#:[id number] Zosyn 2.25 GM Premix 50 ML @ 100 / 100 100 mls/hr IV.SIG Q6H LINDA Rx#: [id number] NS Inj 1,000 ML @ Wide Open IV. 3000 / 3000 SIG BOLUS LINDA Rx#:[id number] NS Inj 250 ML @ 15 mls/hr IV. 250 / 250 SIG ONCE LINDA Rx#:[id number] Vancomycin Inj 2,000 MG In NS 520 / 520 Inj 500 ML @ 250 mls/hr IV.SIG ONCE ONE Rx#:[id number] Anesthesia Amount 700 / 700 Intake (Blood Product) Amt 1200 / 1200 Rbc As-3 Leukoreduced Unit 400 / 400 [id number] Rbc As-3 Leukoreduced Unit 400 / 400 [id number] Rbc Cp2d Leukoreduced Unit 400 / 400 [id number] Output: Estimated Blood Loss 50 / 50 Urine Amount (Catheter) 1000 / 1000 Indwelling Urethral Catheter 1000 / 1000 Narrative: RLE + malodor, + drainage, no streaking, erythema at the midleg. Multiple incisions and packing. Significant defect at the plantar medial arch. Ischemic digits. LLE Medial heel with bulla, no ischemic presentation. Warm. Medications and Allergies Active Medications: Active Medications Acetaminophen (Tylenol) 650 mg PO Q4H PRN PRN Reason: Temp > 100.4 Al Hydroxide/Mg Hydroxide (Milk Of Magnesia Liq) 30 ml PO Q12H PRN PRN Reason: Mild Constipation Bisacodyl (Dulcolax Supp) 10 mg RECTAL DAILY PRN PRN Reason: SEVERE CONSITIPATION Dextrose (D50w Vial) 50 ml IV.PUSH UNSCH PRN PRN Reason: PER HYPOGLYCEMIA PROTOCOL Famotidine (Pepcid Pf Inj) 20 mg IV.PUSH Q12HR [facility] Last Admin: 06/03/18 09:57 Dose: 20 mg Glucagon (Glucagon Inj) 1 mg OTHER UNSCH PRN PRN Reason: for Hypoglycemia Protocol Heparin Sodium (Porcine) (Heparin Inj) 5,000 units SQ Q8HR [facility] Last Admin: 06/03/18 05:23 Dose: 5,000 units Sodium Chloride (Ns Inj) 1,000 mls @ 42 mls/hr IV.CONT .[id number] [facility] Last Admin: 06/02/18 17:56 Dose: 42 mls/hr Sodium Chloride (Ns Inj) 1,000 mls @ 0 mls/hr IV.SIG BOLUS [facility] Stop: 06/04/18 20:31 Last Infusion: 06/03/18 00:00 Dose: Infused Fentanyl (Fentanyl 10 Mcg/Ml Premix Drip) 2,500 mcg in 250 mls @ 5 mls/hr IV.SIG TITRATE PRN; Protocol PRN Reason: Per Protocol Last Admin: 06/02/18 20:50 Dose: 100 mcg/hr, 10 mls/hr Midazolam HCl (Versed Inj) 50 mg in 50 mls @ 2 mls/hr IV.CONT TITRATE PRN; Protocol PRN Reason: Per Protocol Last Admin: 06/03/18 07:11 Dose: 5 mg/hr, 5 mls/hr Sodium Chloride (Ns Inj) 250 mls @ 15 mls/hr IV.SIG ONCE LINDA Stop: 06/03/18 16:39 Last Infusion: 06/03/18 04:00 Dose: Infused Norepinephrine Bitartrate (Levophed-Dextrose 4 Mg/250 Ml Drip) 4 mg in 250 mls @ 7.5 mls/hr IV.SIG TITRATE PRN; Protocol PRN Reason: Per Protocol Clindamycin/Sodium Chloride (Cleocin 900 Mg/Ns Premix) 900 mg in 50 mls @ 100 mls/hr IV.SIG Q6H LINDA Last Admin: 06/03/18 10:53 Dose: 100 mls/hr Sodium Chloride (Ns Inj) 1,000 mls @ 0 mls/hr IV.SIG BOLUS LINDA Vancomycin HCl 1,750 mg/ (Sodium Chloride) 517.5 mls @ 250 mls/hr IV.SIG ONCE ONE Stop: 06/03/18 23:04 Piperacillin/Tazobactam/Dextrose (Zosyn 3.375 Gm Premix) 50 mls @ 100 mls/hr IV.SIG Q6H LINDA Insulin Aspart (Novolog Insulin Correctional Sugar Inj) 0 unit SQ ACHS LINDA; Protocol Last Admin: 06/02/18 21:37 Dose: 3 unit Lactulose (Lactulose Liq) 30 ml PO DAILY PRN PRN Reason: SEVERE CONSITIPATION Ondansetron HCl (Zofran Inj) 4 mg IV.PUSH Q6H PRN PRN Reason: NAUSEA OR VOMITING Pharmacy Profile Note (Vancomycin Consult Pharmacy) 1 each OTHER UNSCH PRN PRN Reason: Pharmacy to dose Senna/Docusate Sodium (Bee-Colace) 1 tab PO BID [facility] Last Admin: 06/03/18 09:57 Dose: 1 tab Sennosides (Senokot) 17.2 mg PO Q12H PRN PRN Reason: Moderate Constipation Sodium Chloride (Ns Flush) 2 ml IV.FLUSH UNSCH PRN PRN Reason: FLUSH AFTER USING IV ACCESS Terbutaline Sulfate (Brethine Inj) 1 mg SQ UNSCH PRN PRN Reason: For Extravasation Allergies Allergy/AdvReac Type Severity Reaction Status Date / Time No Known Allergies Allergy Unverified 06/02/18 15:19 Home Medications Medication Instructions Recorded Confirmed Type aspirin 81 mg PO DAILY 06/02/18 06/02/18 History atorvastatin [Lipitor] 40 mg PO DAILY 06/02/18 06/02/18 History bumetanide 2 mg PO DAILY 06/02/18 06/02/18 History carvedilol [Coreg] 25 mg PO BID 06/02/18 06/02/18 History chlorthalidone 25 mg PO DAILY 06/02/18 06/02/18 History folic acid 1 mg PO DAILY 06/02/18 06/02/18 History lisinopril 5 mg PO DAILY 06/02/18 06/02/18 History Results - Labs CBC & Chem 7: 06/03/18 05:55 06/03/18 05:55 Laboratory Results - last 24 hr 06/02/18 06/02/18 06/02/18 16:20 16:20 16:20 WBC 19.8 H RBC 2.82 L Hgb 7.8 L Hct 23.6 L MCV 83.8 MCH 27.7 MCHC 33.1 RDW 16.7 Plt Count 430 MPV 7.1 Neut % (Auto) 95.6 H Lymph % (Auto) 2.9 L [place] % (Auto) 1.4 Eos % (Auto) 0.0 Baso % (Auto) 0.1 Neut # (Auto) 18.9 H Lymph # (Auto) 0.6 L [place] # (Auto) 0.3 Eos # (Auto) 0.0 Baso # (Auto) 0.0 WBC Differential . Differential Comment Auto diff final ESR PT 13.1 H INR 1.3 APTT 32.7 H Puncture Site Patient Temperature O2 Saturation ABG pH ABG pCO2 ABG pO2 ABG HCO3 ABG O2 Content ABG Base Excess ABG Methemoglobin Hemoglobin Carboxyhemoglobin O2 Delivery Device Vent Setting Inspired O2 Critical Value Sodium 132 L Potassium 3.8 Chloride 100 Carbon Dioxide 19.0 L Anion Gap 13 BUN 71 H Creatinine 2.24 H Estimated GFR 31 L POC Glucose Random Glucose 189 H Lactic Acid Calcium 7.7 L Prot Corrected Calcium Total Bilirubin 0.7 AST 25 ALT 15 Alkaline Phosphatase 175 H Total Creatine Kinase 66 Troponin I Less than 0.02 L C-Reactive Protein B-Natriuretic Peptide Total Protein 6.9 Albumin 0.9 L Nasal Screen MRSA (PCR) Blood Type Blood Type Recheck Antibody Screen MTS Gel Crossmatch 06/02/18 06/02/18 06/02/18 16:20 16:20 16:20 WBC RBC Hgb Hct MCV MCH MCHC RDW Plt Count MPV Neut % (Auto) Lymph % (Auto) [place] % (Auto) Eos % (Auto) Baso % (Auto) Neut # (Auto) Lymph # (Auto) [place] # (Auto) Eos # (Auto) Baso # (Auto) WBC Differential Differential Comment ESR PT INR APTT Puncture Site Patient Temperature O2 Saturation ABG pH ABG pCO2 ABG pO2 ABG HCO3 ABG O2 Content ABG Base Excess ABG Methemoglobin Hemoglobin Carboxyhemoglobin O2 Delivery Device Vent Setting Inspired O2 Critical Value Sodium Potassium Chloride Carbon Dioxide Anion Gap BUN Creatinine Estimated GFR POC Glucose Random Glucose Lactic Acid 1.9 Calcium Prot Corrected Calcium Total Bilirubin AST ALT Alkaline Phosphatase Total Creatine Kinase Troponin I C-Reactive Protein 17.60 H B-Natriuretic Peptide 1121 H Total Protein Albumin Nasal Screen MRSA (PCR) Blood Type Blood Type Recheck Antibody Screen MTS Gel Crossmatch 06/02/18 06/02/18 06/02/18 16:20 16:20 19:10 WBC RBC Hgb Hct MCV MCH MCHC RDW Plt Count MPV Neut % (Auto) Lymph % (Auto) [place] % (Auto) Eos % (Auto) Baso % (Auto) Neut # (Auto) Lymph # (Auto) [place] # (Auto) Eos # (Auto) Baso # (Auto) WBC Differential Differential Comment ESR Greater than 140 H PT INR APTT Puncture Site Art line Patient Temperature 98.6 O2 Saturation 93 ABG pH 7.10 L* ABG pCO2 45 H ABG pO2 111 ABG HCO3 13 L* ABG O2 Content 12.1 ABG Base Excess -14.5 L ABG Methemoglobin 1.8 Hemoglobin 9.1 L Carboxyhemoglobin 1.1 O2 Delivery Device Or gas Vent Setting Inspired O2 50 Critical Value Yes Sodium Potassium Chloride Carbon Dioxide Anion Gap BUN Creatinine Estimated GFR POC Glucose Random Glucose Cancelled Lactic Acid Calcium Prot Corrected Calcium Total Bilirubin AST ALT Alkaline Phosphatase Total Creatine Kinase Troponin I C-Reactive Protein B-Natriuretic Peptide Total Protein Albumin Nasal Screen MRSA (PCR) Blood Type Blood Type Recheck Antibody Screen MTS Gel Crossmatch 06/02/18 06/02/18 06/02/18 21:00 21:34 23:45 WBC RBC Hgb 5.2 L* D Hct 16.0 L* MCV MCH MCHC RDW Plt Count MPV Neut % (Auto) Lymph % (Auto) [place] % (Auto) Eos % (Auto) Baso % (Auto) Neut # (Auto) Lymph # (Auto) [place] # (Auto) Eos # (Auto) Baso # (Auto) WBC Differential Differential Comment ESR PT INR APTT Puncture Site Art line Patient Temperature 98.6 O2 Saturation 96 ABG pH 7.35 L ABG pCO2 33 L ABG pO2 152 H ABG HCO3 18 L ABG O2 Content 8.5 L ABG Base Excess -6.8 L ABG Methemoglobin 1.2 Hemoglobin 6.0 L* Carboxyhemoglobin 2.0 O2 Delivery Device Ventilator Vent Setting Prvc/ac Inspired O2 40 Critical Value Yes Sodium Potassium Chloride Carbon Dioxide Anion Gap BUN Creatinine Estimated GFR POC Glucose 238 H Random Glucose Lactic Acid Calcium Prot Corrected Calcium Total Bilirubin AST ALT Alkaline Phosphatase Total Creatine Kinase Troponin I C-Reactive Protein B-Natriuretic Peptide Total Protein Albumin Nasal Screen MRSA (PCR) Blood Type Blood Type Recheck Antibody Screen MTS Gel Crossmatch 06/02/18 06/03/18 06/03/18 23:45 00:20 05:55 WBC 19.3 H RBC 2.95 L Hgb 8.3 L D Hct 24.3 L MCV 82.4 MCH 28.1 MCHC 34.1 RDW 17.1 Plt Count 276 D MPV 6.8 L Neut % (Auto) 88.1 H Lymph % (Auto) 6.9 L [place] % (Auto) 4.8 Eos % (Auto) 0.0 Baso % (Auto) 0.2 Neut # (Auto) 17.0 H Lymph # (Auto) 1.3 [place] # (Auto) 0.9 Eos # (Auto) 0.0 Baso # (Auto) 0.0 WBC Differential . Differential Comment Auto diff final ESR PT INR APTT Puncture Site Patient Temperature O2 Saturation ABG pH ABG pCO2 ABG pO2 ABG HCO3 ABG O2 Content ABG Base Excess ABG Methemoglobin Hemoglobin Carboxyhemoglobin O2 Delivery Device Vent Setting Inspired O2 Critical Value Sodium Potassium Chloride Carbon Dioxide Anion Gap BUN Creatinine Estimated GFR POC Glucose Random Glucose Lactic Acid Calcium Prot Corrected Calcium Total Bilirubin AST ALT Alkaline Phosphatase Total Creatine Kinase Troponin I C-Reactive Protein B-Natriuretic Peptide Total Protein Albumin Nasal Screen MRSA (PCR) Mrsa detected Blood Type O Negative Blood Type Recheck Not needed Antibody Screen Negative MTS Gel Crossmatch See Detail 06/03/18 06/03/18 06/03/18 05:55 11:02 11:03 WBC RBC Hgb Hct MCV MCH MCHC RDW Plt Count MPV Neut % (Auto) Lymph % (Auto) [place] % (Auto) Eos % (Auto) Baso % (Auto) Neut # (Auto) Lymph # (Auto) [place] # (Auto) Eos # (Auto) Baso # (Auto) WBC Differential Differential Comment ESR PT INR APTT Puncture Site Patient Temperature O2 Saturation ABG pH ABG pCO2 ABG pO2 ABG HCO3 ABG O2 Content ABG Base Excess ABG Methemoglobin Hemoglobin Carboxyhemoglobin O2 Delivery Device Vent Setting Inspired O2 Critical Value Sodium 137 Potassium 3.4 L Chloride 105 Carbon Dioxide 19.4 L Anion Gap 13 BUN 67 H Creatinine 1.85 H Estimated GFR 39 L POC Glucose 202 H Random Glucose 170 H Lactic Acid 0.6 Calcium 6.7 L* D Prot Corrected Calcium 7.5 L Total Bilirubin AST ALT Alkaline Phosphatase Total Creatine Kinase Troponin I C-Reactive Protein B-Natriuretic Peptide Total Protein 5.4 L D Albumin Nasal Screen MRSA (PCR) Blood Type Blood Type Recheck Antibody Screen MTS Gel Crossmatch 06/03/18 14:05 WBC RBC Hgb Hct MCV MCH MCHC RDW Plt Count MPV Neut % (Auto) Lymph % (Auto) [place] % (Auto) Eos % (Auto) Baso % (Auto) Neut # (Auto) Lymph # (Auto) [place] # (Auto) Eos # (Auto) Baso # (Auto) WBC Differential Differential Comment ESR PT 14.0 H INR 1.4 APTT Puncture Site Patient Temperature O2 Saturation ABG pH ABG pCO2 ABG pO2 ABG HCO3 ABG O2 Content ABG Base Excess ABG Methemoglobin Hemoglobin Carboxyhemoglobin O2 Delivery Device Vent Setting Inspired O2 Critical Value Sodium Potassium Chloride Carbon Dioxide Anion Gap BUN Creatinine Estimated GFR POC Glucose Random Glucose Lactic Acid Calcium Prot Corrected Calcium Total Bilirubin AST ALT Alkaline Phosphatase Total Creatine Kinase Troponin I C-Reactive Protein B-Natriuretic Peptide Total Protein Albumin Nasal Screen MRSA (PCR) Blood Type Blood Type Recheck Antibody Screen MTS Gel Crossmatch Microbiology 06/02/18 18:48 Wound - Foot Gram Stain - Final 06/02/18 18:48 Wound - Foot Wound Culture - Preliminary Immature growth - reincubate 06/02/18 17:15 Wound - Foot Gram Stain - Final 06/02/18 17:15 Wound - Foot Wound Culture - Preliminary gram negative rods 06/02/18 16:20 Blood - Peripheral Aerobic Blood Culture - Preliminary Escherichia coli 06/02/18 16:20 Blood - Peripheral Anaerobic Blood Culture - Preliminary gram negative rods 06/02/18 16:25 Blood - Peripheral Aerobic Blood Culture - Preliminary gram negative rods 06/02/18 16:25 Blood - Peripheral Anaerobic Blood Culture - Preliminary gram negative rods 06/02/18 18:48 Wound - Foot Fungal Smear - Final No fungal elements seen - Imaging Impressions Chest X-Ray 06/02/18 15:19 CONCLUSION: 1. Minimal right lung base airspace disease which may reflect atelectasis. Venous Doppler Study 06/02/18 15:46 CONCLUSION: 1. No sonographic evidence of lower extremity DVT. 2. Bilateral lower extremity subcutaneous edema. 3. Multiple lymph nodes seen in both groins, some of which are abnormally enlarged. Recommend clinical correlation. Foot X-Ray 06/02/18 15:52 CONCLUSION: Extensive subcutaneous air. 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 Stephen Prevlopam , LLE ordered. (3) Sepsis Qualifiers: Sepsis type: sepsis due to unspecified organism Qualified Code(s): A41.9 - Sepsis, unspecified organism
[2018-06-03 15:43] LABS: Hemoglobin A1c 7.5 % (4.3-6.0)
[2018-06-03 15:46] LABS: Hematocrit 25.7 % (39.0-51.0); Hemoglobin 8.4 gm/dL (13.0-17.0); Mean Corpuscular HGB Conc 32.6 % (32.0-36.0); Mean Corpuscular Hemoglobin 27.2 pg (27.0-34.0); Mean Corpuscular Volume 83.6 fL (80.0-100.0); Mean Platelet Volume 6.9 fL (7.0-11.0); Platelet Count 309 th/mm3 (150-450); Red Blood Count 3.08 mil/mm3 (4.50-5.90); Red Cell Distribution Width 17.5 % (11.6-17.2); White Blood Count 19.7 th/mm3 (4.0-11.0)
[2018-06-03] MEDS: Piperacil/Tazo 3.375 GM Premix 50 ML IV.SIG SCH ×2 (15:46→20:53)
--- NOTE | 2018-06-03 16:19 | P.CONID ---
History of Present Illness Service: ID Consult date: 06/03/18 Requesting Physician: Gilmar Walton Reason for Consult: Severe sepsis, Right foot gas gangrene Primary Care Provider: No Primary Care Physician History of Present Illness: pt unable to provide history sedated int'd on vent hx obtained thru the chart 53-year-old diabetic male presented to emergency department yday with complaints of shortness of breath, fatigue, and extensive draining R foot wound , started 5 days ago a He was diagnosed with gas gangrene of R foot and underwent immediate surgery Hremains on vent + pressors Review of Systems unobtainable due to endotracheal tube, unobtainable due to mental status PMFSH - History History Provided By: Patient - Medical History Medical History: Medical History (Last Reviewed 06/03/18 @ 16:31 by Jackie Mosley MD) Congestive heart failure Edema Type 2 diabetes mellitus - Surgical History Surgical History: Surgical History (Last Reviewed 06/03/18 @ 16:31 by Jackie Mosley MD) Hx of cholecystectomy - Family History Family History: Family History (Last Updated 06/03/18 @ 16:31 by Jackie Mosley MD) Other Family history unobtainable due to patient's condition - Social History I have reviewed the patient's Social History: Yes - Tobacco History Second Hand Smoke Exposure: No Tobacco Use In Past 30 Days: No Smoking Status: Former smoker Tobacco Type: Cigarettes - Alcohol History How Often Do You Have a Drink Containing Alcohol: Monthly or less - Substance Use History Substance History: No History of Abuse - Travel History Recent Travel in the [place] Within the Last 8 Weeks: No Recent Travel Out of the Country Within the Last 8 Weeks: No - Immunization History Tetanus Immunization: Unsure Hx Influenza Vaccine This Season: No Medications and Allergies Active Medications: Active Medications Acetaminophen (Tylenol) 650 mg PO Q4H PRN PRN Reason: Temp > 100.4 Al Hydroxide/Mg Hydroxide (Milk Of Magnesia Liq) 30 ml PO Q12H PRN PRN Reason: Mild Constipation Bisacodyl (Dulcolax Supp) 10 mg RECTAL DAILY PRN PRN Reason: SEVERE CONSITIPATION Dextrose (D50w Vial) 50 ml IV.PUSH UNSCH PRN PRN Reason: PER HYPOGLYCEMIA PROTOCOL Famotidine (Pepcid Pf Inj) 20 mg IV.PUSH Q12HR [facility] Last Admin: 06/03/18 09:57 Dose: 20 mg Glucagon (Glucagon Inj) 1 mg OTHER UNSCH PRN PRN Reason: for Hypoglycemia Protocol Heparin Sodium (Porcine) (Heparin Inj) 5,000 units SQ Q8HR [facility] Last Admin: 06/03/18 15:38 Dose: Not Given Sodium Chloride (Ns Inj) 1,000 mls @ 42 mls/hr IV.CONT .[id number] [facility] Last Admin: 06/02/18 17:56 Dose: 42 mls/hr Sodium Chloride (Ns Inj) 1,000 mls @ 0 mls/hr IV.SIG BOLUS [facility] Stop: 06/04/18 20:31 Last Infusion: 06/03/18 00:00 Dose: Infused Fentanyl (Fentanyl 10 Mcg/Ml Premix Drip) 2,500 mcg in 250 mls @ 5 mls/hr IV.SIG TITRATE PRN; Protocol PRN Reason: Per Protocol Last Admin: 06/02/18 20:50 Dose: 100 mcg/hr, 10 mls/hr Midazolam HCl (Versed Inj) 50 mg in 50 mls @ 2 mls/hr IV.CONT TITRATE PRN; Protocol PRN Reason: Per Protocol Last Admin: 06/03/18 07:11 Dose: 5 mg/hr, 5 mls/hr Sodium Chloride (Ns Inj) 250 mls @ 15 mls/hr IV.SIG ONCE [facility] Stop: 06/03/18 16:39 Last Infusion: 06/03/18 04:00 Dose: Infused Norepinephrine Bitartrate (Levophed-Dextrose 4 Mg/250 Ml Drip) 4 mg in 250 mls @ 7.5 mls/hr IV.SIG TITRATE PRN; Protocol PRN Reason: Per Protocol Clindamycin/Sodium Chloride (Cleocin 900 Mg/Ns Premix) 900 mg in 50 mls @ 100 mls/hr IV.SIG Q6H [facility] Last Infusion: 06/03/18 11:25 Dose: Infused Sodium Chloride (Ns Inj) 1,000 mls @ 0 mls/hr IV.SIG BOLUS [facility] Vancomycin HCl 1,750 mg/ (Sodium Chloride) 517.5 mls @ 250 mls/hr IV.SIG ONCE ONE Stop: 06/03/18 23:04 Piperacillin/Tazobactam/Dextrose (Zosyn 3.375 Gm Premix) 50 mls @ 100 mls/hr IV.SIG Q6H [facility] Last Admin: 06/03/18 15:46 Dose: 100 mls/hr Insulin Aspart (Novolog Insulin Correctional Sugar Inj) 0 unit SQ ACHS [facility]; Protocol Last Admin: 06/03/18 15:37 Dose: 3 unit Lactulose (Lactulose Liq) 30 ml PO DAILY PRN PRN Reason: SEVERE CONSITIPATION Ondansetron HCl (Zofran Inj) 4 mg IV.PUSH Q6H PRN PRN Reason: NAUSEA OR VOMITING Pharmacy Profile Note (Vancomycin Consult Pharmacy) 1 each OTHER UNSCH PRN PRN Reason: Pharmacy to dose Senna/Docusate Sodium (Bee-Colace) 1 tab PO BID [facility] Last Admin: 06/03/18 09:57 Dose: 1 tab Sennosides (Senokot) 17.2 mg PO Q12H PRN PRN Reason: Moderate Constipation Sodium Chloride (Ns Flush) 2 ml IV.FLUSH UNSCH PRN PRN Reason: FLUSH AFTER USING IV ACCESS Terbutaline Sulfate (Brethine Inj) 1 mg SQ UNSCH PRN PRN Reason: For Extravasation Allergies Allergy/AdvReac Type Severity Reaction Status Date / Time No Known Allergies Allergy Unverified 06/02/18 15:19 Home Medications Medication Instructions Recorded Confirmed Type aspirin 81 mg PO DAILY 06/02/18 06/02/18 History atorvastatin [Lipitor] 40 mg PO DAILY 06/02/18 06/02/18 History bumetanide 2 mg PO DAILY 06/02/18 06/02/18 History carvedilol [Coreg] 25 mg PO BID 06/02/18 06/02/18 History chlorthalidone 25 mg PO DAILY 06/02/18 06/02/18 History folic acid 1 mg PO DAILY 06/02/18 06/02/18 History lisinopril 5 mg PO DAILY 06/02/18 06/02/18 History Exam Vital signs: Vital Signs 06/02/18 20:00 06/02/18 20:11 06/02/18 23:40 Temperature 99.1 F Pulse Rate 92 H Respiratory Rate 14 14 14 Blood Pressure 157/76 H Pulse Oximetry 100 99 100 06/03/18 00:00 06/03/18 02:02 06/03/18 03:09 Temperature 94.5 F L 95 F L 94.6 F L Pulse Rate 70 67 69 Respiratory Rate 14 14 14 Blood Pressure 138/60 121/55 L 125/58 L Pulse Oximetry 100 100 100 06/03/18 03:25 06/03/18 03:44 06/03/18 04:00 Temperature 94.5 F L 96.0 F L Pulse Rate 70 70 Respiratory Rate 14 14 14 Blood Pressure 124/57 L 122/86 Pulse Oximetry 100 99 100 06/03/18 08:00 06/03/18 08:37 06/03/18 10:00 Temperature 98 F Pulse Rate 84 96 H Respiratory Rate 14 14 Blood Pressure 128/54 L Pulse Oximetry 100 100 06/03/18 12:00 06/03/18 12:19 06/03/18 14:00 Temperature 99.4 F Pulse Rate 96 H 92 H Respiratory Rate 14 14 Blood Pressure 108/50 L Pulse Oximetry 100 100 Intake & Output 06/02/18 06/03/18 06/03/18 18:59 06:59 18:59 Intake Total 5820 / 5820 170 / 170 Output Total 1050 / 1050 Balance 4770 / 4770 170 / 170 Weight 74.843 kg 91.6 kg Intake: IV 3920 / 3920 170 / 170 Versed Inj 50 mg In 50 ml @ 2 50 / 50 MG/HR 2 mls/hr IV.CONT TITRATE PRN Rx#:[id number] Calcium Gluconate Inj 2 GM In 120 / 120 NS Inj 100 ML @ 120 mls/hr IV. SIG ONCE ONE Rx#:[id number] Cleocin 900 mg/NS Premix 900 mg 50 / 50 In 50 ml @ 100 mls/hr IV.SIG Q6H [facility] Rx#:[id number] Zosyn 2.25 GM Premix 50 ML @ 100 / 100 100 mls/hr IV.SIG Q6H [facility] Rx#: [id number] NS Inj 1,000 ML @ Wide Open IV. 3000 / 3000 SIG BOLUS [facility] Rx#:[id number] NS Inj 250 ML @ 15 mls/hr IV. 250 / 250 SIG ONCE [facility] Rx#:[id number] Vancomycin Inj 2,000 MG In NS 520 / 520 Inj 500 ML @ 250 mls/hr IV.SIG ONCE ONE Rx#:[id number] Anesthesia Amount 700 / 700 Intake (Blood Product) Amt 1200 / 1200 Rbc As-3 Leukoreduced Unit 400 / 400 [id number] Rbc As-3 Leukoreduced Unit 400 / 400 [id number] Rbc Cp2d Leukoreduced Unit 400 / 400 [id number] Output: Estimated Blood Loss 50 / 50 Urine Amount (Catheter) 1000 / 1000 Indwelling Urethral Catheter 1000 / 1000 - Constitutional no acute distress Comments: sedated - Routine HEENT Exam Head: Present: normocephalic, atraumatic Eye: Present: EOMI. Absent: conjunctival icterus, scleral injection ENT: Present: mucous membranes moist, oropharynx clear, dentition normal - Routine Neck Exam Present: supple. Absent: JVD, tracheal deviation - Routine Respiratory Exam Present: patient mechanically ventilated, CTA bilaterally - Routine Cardiovascular Exam Present: RRR, S1, S2. Absent: murmur, gallop, rubs - Routine Abdominal Exam Present: soft. Absent: tenderness, distended, organomegaly, mass - Routine Extremities Exam Present: cyanosis (R toes), edema (tigh 4+ pitting ), normal capillary refill Comments: R foot with surgical dressing in palce Dusky toes + extensive fould smelling drainage erythema extending to the R ankle L foot with unstagibale pressure injury back eschar on the heel - Routine Skin Exam Present: dry, warm. Absent: rash - Routine Neurological Exam heavily sedated - Routine Psychiatric Exam Present: unable to assess Results - Labs CBC & Chem 7: 06/03/18 05:55 06/03/18 05:55 Labs: Laboratory Results - last 24 hr 06/02/18 06/02/18 06/02/18 16:20 16:20 16:20 WBC 19.8 H RBC 2.82 L Hgb 7.8 L Hct 23.6 L MCV 83.8 MCH 27.7 MCHC 33.1 RDW 16.7 Plt Count 430 MPV 7.1 Neut % (Auto) 95.6 H Lymph % (Auto) 2.9 L [place] % (Auto) 1.4 Eos % (Auto) 0.0 Baso % (Auto) 0.1 Neut # (Auto) 18.9 H Lymph # (Auto) 0.6 L [place] # (Auto) 0.3 Eos # (Auto) 0.0 Baso # (Auto) 0.0 WBC Differential . Differential Comment Auto diff final ESR PT 13.1 H INR 1.3 APTT 32.7 H Puncture Site Patient Temperature O2 Saturation ABG pH ABG pCO2 ABG pO2 ABG HCO3 ABG O2 Content ABG Base Excess ABG Methemoglobin Hemoglobin Carboxyhemoglobin O2 Delivery Device Vent Setting Inspired O2 Critical Value Sodium 132 L Potassium 3.8 Chloride 100 Carbon Dioxide 19.0 L Anion Gap 13 BUN 71 H Creatinine 2.24 H Estimated GFR 31 L POC Glucose Random Glucose 189 H Lactic Acid Calcium 7.7 L Prot Corrected Calcium Total Bilirubin 0.7 AST 25 ALT 15 Alkaline Phosphatase 175 H Total Creatine Kinase 66 Troponin I Less than 0.02 L C-Reactive Protein B-Natriuretic Peptide Total Protein 6.9 Albumin 0.9 L Nasal Screen MRSA (PCR) Blood Type Blood Type Recheck Antibody Screen MTS Gel Crossmatch 06/02/18 06/02/18 06/02/18 16:20 16:20 16:20 WBC RBC Hgb Hct MCV MCH MCHC RDW Plt Count MPV Neut % (Auto) Lymph % (Auto) [place] % (Auto) Eos % (Auto) Baso % (Auto) Neut # (Auto) Lymph # (Auto) [place] # (Auto) Eos # (Auto) Baso # (Auto) WBC Differential Differential Comment ESR PT INR APTT Puncture Site Patient Temperature O2 Saturation ABG pH ABG pCO2 ABG pO2 ABG HCO3 ABG O2 Content ABG Base Excess ABG Methemoglobin Hemoglobin Carboxyhemoglobin O2 Delivery Device Vent Setting Inspired O2 Critical Value Sodium Potassium Chloride Carbon Dioxide Anion Gap BUN Creatinine Estimated GFR POC Glucose Random Glucose Lactic Acid 1.9 Calcium Prot Corrected Calcium Total Bilirubin AST ALT Alkaline Phosphatase Total Creatine Kinase Troponin I C-Reactive Protein 17.60 H B-Natriuretic Peptide 1121 H Total Protein Albumin Nasal Screen MRSA (PCR) Blood Type Blood Type Recheck Antibody Screen MTS Gel Crossmatch 06/02/18 06/02/18 06/02/18 16:20 16:20 19:10 WBC RBC Hgb Hct MCV MCH MCHC RDW Plt Count MPV Neut % (Auto) Lymph % (Auto) [place] % (Auto) Eos % (Auto) Baso % (Auto) Neut # (Auto) Lymph # (Auto) [place] # (Auto) Eos # (Auto) Baso # (Auto) WBC Differential Differential Comment ESR Greater than 140 H PT INR APTT Puncture Site Art line Patient Temperature 98.6 O2 Saturation 93 ABG pH 7.10 L* ABG pCO2 45 H ABG pO2 111 ABG HCO3 13 L* ABG O2 Content 12.1 ABG Base Excess -14.5 L ABG Methemoglobin 1.8 Hemoglobin 9.1 L Carboxyhemoglobin 1.1 O2 Delivery Device Or gas Vent Setting Inspired O2 50 Critical Value Yes Sodium Potassium Chloride Carbon Dioxide Anion Gap BUN Creatinine Estimated GFR POC Glucose Random Glucose Cancelled Lactic Acid Calcium Prot Corrected Calcium Total Bilirubin AST ALT Alkaline Phosphatase Total Creatine Kinase Troponin I C-Reactive Protein B-Natriuretic Peptide Total Protein Albumin Nasal Screen MRSA (PCR) Blood Type Blood Type Recheck Antibody Screen MTS Gel Crossmatch 06/02/18 06/02/18 06/02/18 21:00 21:34 23:45 WBC RBC Hgb 5.2 L* D Hct 16.0 L* MCV MCH MCHC RDW Plt Count MPV Neut % (Auto) Lymph % (Auto) [place] % (Auto) Eos % (Auto) Baso % (Auto) Neut # (Auto) Lymph # (Auto) [place] # (Auto) Eos # (Auto) Baso # (Auto) WBC Differential Differential Comment ESR PT INR APTT Puncture Site Art line Patient Temperature 98.6 O2 Saturation 96 ABG pH 7.35 L ABG pCO2 33 L ABG pO2 152 H ABG HCO3 18 L ABG O2 Content 8.5 L ABG Base Excess -6.8 L ABG Methemoglobin 1.2 Hemoglobin 6.0 L* Carboxyhemoglobin 2.0 O2 Delivery Device Ventilator Vent Setting Prvc/ac Inspired O2 40 Critical Value Yes Sodium Potassium Chloride Carbon Dioxide Anion Gap BUN Creatinine Estimated GFR POC Glucose 238 H Random Glucose Lactic Acid Calcium Prot Corrected Calcium Total Bilirubin AST ALT Alkaline Phosphatase Total Creatine Kinase Troponin I C-Reactive Protein B-Natriuretic Peptide Total Protein Albumin Nasal Screen MRSA (PCR) Blood Type Blood Type Recheck Antibody Screen MTS Gel Crossmatch 06/02/18 06/03/18 06/03/18 23:45 00:20 05:55 WBC 19.3 H RBC 2.95 L Hgb 8.3 L D Hct 24.3 L MCV 82.4 MCH 28.1 MCHC 34.1 RDW 17.1 Plt Count 276 D MPV 6.8 L Neut % (Auto) 88.1 H Lymph % (Auto) 6.9 L [place] % (Auto) 4.8 Eos % (Auto) 0.0 Baso % (Auto) 0.2 Neut # (Auto) 17.0 H Lymph # (Auto) 1.3 [place] # (Auto) 0.9 Eos # (Auto) 0.0 Baso # (Auto) 0.0 WBC Differential . Differential Comment Auto diff final ESR PT INR APTT Puncture Site Patient Temperature O2 Saturation ABG pH ABG pCO2 ABG pO2 ABG HCO3 ABG O2 Content ABG Base Excess ABG Methemoglobin Hemoglobin Carboxyhemoglobin O2 Delivery Device Vent Setting Inspired O2 Critical Value Sodium Potassium Chloride Carbon Dioxide Anion Gap BUN Creatinine Estimated GFR POC Glucose Random Glucose Lactic Acid Calcium Prot Corrected Calcium Total Bilirubin AST ALT Alkaline Phosphatase Total Creatine Kinase Troponin I C-Reactive Protein B-Natriuretic Peptide Total Protein Albumin Nasal Screen MRSA (PCR) Mrsa detected Blood Type O Negative Blood Type Recheck Not needed Antibody Screen Negative MTS Gel Crossmatch See Detail 06/03/18 06/03/18 06/03/18 05:55 11:02 11:03 WBC RBC Hgb Hct MCV MCH MCHC RDW Plt Count MPV Neut % (Auto) Lymph % (Auto) [place] % (Auto) Eos % (Auto) Baso % (Auto) Neut # (Auto) Lymph # (Auto) [place] # (Auto) Eos # (Auto) Baso # (Auto) WBC Differential Differential Comment ESR PT INR APTT Puncture Site Patient Temperature O2 Saturation ABG pH ABG pCO2 ABG pO2 ABG HCO3 ABG O2 Content ABG Base Excess ABG Methemoglobin Hemoglobin Carboxyhemoglobin O2 Delivery Device Vent Setting Inspired O2 Critical Value Sodium 137 Potassium 3.4 L Chloride 105 Carbon Dioxide 19.4 L Anion Gap 13 BUN 67 H Creatinine 1.85 H Estimated GFR 39 L POC Glucose 202 H Random Glucose 170 H Lactic Acid 0.6 Calcium 6.7 L* D Prot Corrected Calcium 7.5 L Total Bilirubin AST ALT Alkaline Phosphatase Total Creatine Kinase Troponin I C-Reactive Protein B-Natriuretic Peptide Total Protein 5.4 L D Albumin Nasal Screen MRSA (PCR) Blood Type Blood Type Recheck Antibody Screen MTS Gel Crossmatch 06/03/18 14:05 WBC RBC Hgb Hct MCV MCH MCHC RDW Plt Count MPV Neut % (Auto) Lymph % (Auto) [place] % (Auto) Eos % (Auto) Baso % (Auto) Neut # (Auto) Lymph # (Auto) [place] # (Auto) Eos # (Auto) Baso # (Auto) WBC Differential Differential Comment ESR PT 14.0 H INR 1.4 APTT Puncture Site Patient Temperature O2 Saturation ABG pH ABG pCO2 ABG pO2 ABG HCO3 ABG O2 Content ABG Base Excess ABG Methemoglobin Hemoglobin Carboxyhemoglobin O2 Delivery Device Vent Setting Inspired O2 Critical Value Sodium Potassium Chloride Carbon Dioxide Anion Gap BUN Creatinine Estimated GFR POC Glucose Random Glucose Lactic Acid Calcium Prot Corrected Calcium Total Bilirubin AST ALT Alkaline Phosphatase Total Creatine Kinase Troponin I C-Reactive Protein B-Natriuretic Peptide Total Protein Albumin Nasal Screen MRSA (PCR) Blood Type Blood Type Recheck Antibody Screen MTS Gel Crossmatch - Imaging Impressions Venous Doppler Study 06/02/18 15:46 CONCLUSION: 1. No sonographic evidence of lower extremity DVT. 2. Bilateral lower extremity subcutaneous edema. 3. Multiple lymph nodes seen in both groins, some of which are abnormally enlarged. Recommend clinical correlation. Foot X-Ray 06/02/18 15:52 CONCLUSION: Extensive subcutaneous air. No bone fracture or dislocation Assessment and Plan - Plan life treatening severe R foot DFI Gas gangrene R foot, polimicrobial mixed aerobic/anaerobic infx Acutre VDRF ARF Sepsis, refractory hypotension E.coli sepsis from infected foot critically ill cont zosyn cont with more debriments - pt definetely have gangrenous forefoot will dc clindamycin and if no MRSA co-infx vancomycin as well eloisa amin RN
--- NOTE | 2018-06-03 17:19 | ECG ---
Date Performed: 06/02/2018 Time Performed: 16:04:47 PTAGE: 53 years EKG: SINUS TACHYCARDIA ABNORMAL RHYTHM ECG NO PREVIOUS TRACING DOCTOR: Navjot Sherman Interpretating Date/Time 06/03/2018 17:16:47
[2018-06-03] MEDS: Sod Chloride 0.9% Inj 1,000 ML IV.CONT SCH ×2 (18:41→21:42)
[2018-06-03] MEDS ORDERED: Vancomycin Inj 1,750 MG in Sodium Chlor 0.9% Inj 500 ML IV.SIG ONE (21:00)
--- NOTE | 2018-06-03 21:28 | P.PNVS ---
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 Patient will have wound VAC on for a few days and probably Thursday he will be ready to go for washout and closure or perhaps washout and another wound VAC before closure depending how the wound looks like and muscle looks like Today at the time of surgery that was positive draining from proximal and in the area of the soleus and flexors We will continue to follow Objective Vital Signs / I&O: Vital Signs 06/02/18 23:40 06/03/18 00:00 06/03/18 02:02 Temperature 94.5 F L 95 F L Pulse Rate 70 67 Respiratory Rate 14 14 14 Blood Pressure 138/60 121/55 L Pulse Oximetry 100 100 100 06/03/18 03:09 06/03/18 03:25 06/03/18 03:44 Temperature 94.6 F L 94.5 F L Pulse Rate 69 70 Respiratory Rate 14 14 14 Blood Pressure 125/58 L 124/57 L Pulse Oximetry 100 100 99 06/03/18 04:00 06/03/18 08:00 06/03/18 08:37 Temperature 96.0 F L 98 F Pulse Rate 70 84 Respiratory Rate 14 14 14 Blood Pressure 122/86 128/54 L Pulse Oximetry 100 100 100 06/03/18 10:00 06/03/18 12:00 06/03/18 12:19 Temperature 99.4 F Pulse Rate 96 H 96 H Respiratory Rate 14 14 Blood Pressure 108/50 L Pulse Oximetry 100 100 06/03/18 14:00 06/03/18 16:00 06/03/18 16:53 Temperature 99.3 F Pulse Rate 92 H 90 Respiratory Rate 14 14 Blood Pressure 118/50 L Pulse Oximetry 100 100 06/03/18 18:00 06/03/18 19:15 06/03/18 19:30 Temperature Pulse Rate 90 Respiratory Rate 14 Blood Pressure Pulse Oximetry 100 100 Intake & Output 06/03/18 06/03/18 06/04/18 06:59 18:59 06:59 Intake Total 5820 / 5820 220 / 220 600 / 600 Output Total 1050 / 1050 600 / 600 200 / 200 Balance 4770 / 4770 -380 / -380 400 / 400 Weight 91.6 kg Intake: IV 3920 / 3920 220 / 220 Versed Inj 50 mg In 50 ml @ 2 50 / 50 MG/HR 2 mls/hr IV.CONT TITRATE PRN Rx#:[id number] Calcium Gluconate Inj 2 GM In 120 / 120 NS Inj 100 ML @ 120 mls/hr IV. SIG ONCE ONE Rx#:[id number] Cleocin 900 mg/NS Premix 900 mg 50 / 50 In 50 ml @ 100 mls/hr IV.SIG Q6H [facility] [place] Rx#:[id number] Zosyn 2.25 GM Premix 50 ML @ 100 / 100 100 mls/hr IV.SIG Q6H [facility] Rx#: [id number] Zosyn 3.375 GM Premix 50 ML @ 50 / 50 100 mls/hr IV.SIG Q6H [facility] Rx#: [id number] NS Inj 1,000 ML @ Wide Open IV. 3000 / 3000 SIG BOLUS [facility] Rx#:[id number] NS Inj 250 ML @ 15 mls/hr IV. 250 / 250 SIG ONCE [facility] Rx#:[id number] Vancomycin Inj 2,000 MG In NS 520 / 520 Inj 500 ML @ 250 mls/hr IV.SIG ONCE ONE Rx#:[id number] Anesthesia Amount 700 / 700 600 / 600 Intake (Blood Product) Amt 1200 / 1200 Rbc As-3 Leukoreduced Unit 400 / 400 [id number] Rbc As-3 Leukoreduced Unit 400 / 400 [id number] Rbc Cp2d Leukoreduced Unit 400 / 400 [id number] Output: Estimated Blood Loss 50 / 50 100 / 100 Urine Amount (Catheter) 1000 / 1000 550 / 550 100 / 100 Indwelling Urethral Catheter 1000 / 1000 550 / 550 100 / 100 Gastric Drainage 50 / 50 Orogastric Tube 50 / 50 Laboratory Results - last 24 hr 06/02/18 06/02/18 06/02/18 19:10 21:34 23:45 WBC RBC Hgb 5.2 L* D Hct 16.0 L* MCV MCH MCHC RDW Plt Count MPV Neut % (Auto) Lymph % (Auto) [place] % (Auto) Eos % (Auto) Baso % (Auto) Neut # (Auto) Lymph # (Auto) [place] # (Auto) Eos # (Auto) Baso # (Auto) WBC Differential Differential Comment PT INR Puncture Site Art line Patient Temperature 98.6 O2 Saturation 93 ABG pH 7.10 L* ABG pCO2 45 H ABG pO2 111 ABG HCO3 13 L* ABG O2 Content 12.1 ABG Base Excess -14.5 L ABG Methemoglobin 1.8 Hemoglobin 9.1 L Carboxyhemoglobin 1.1 O2 Delivery Device Or gas Inspired O2 50 Critical Value Yes Sodium Potassium Chloride Carbon Dioxide Anion Gap BUN Creatinine Estimated GFR POC Glucose 238 H Random Glucose Hemoglobin A1c Lactic Acid Calcium Prot Corrected Calcium Total Protein Nasal Screen MRSA (PCR) Blood Type Blood Type Recheck Antibody Screen MTS Gel Crossmatch 06/02/18 06/03/18 06/03/18 23:45 00:20 05:55 WBC 19.3 H RBC 2.95 L Hgb 8.3 L D Hct 24.3 L MCV 82.4 MCH 28.1 MCHC 34.1 RDW 17.1 Plt Count 276 D MPV 6.8 L Neut % (Auto) 88.1 H Lymph % (Auto) 6.9 L [place] % (Auto) 4.8 Eos % (Auto) 0.0 Baso % (Auto) 0.2 Neut # (Auto) 17.0 H Lymph # (Auto) 1.3 [place] # (Auto) 0.9 Eos # (Auto) 0.0 Baso # (Auto) 0.0 WBC Differential . Differential Comment Auto diff final PT INR Puncture Site Patient Temperature O2 Saturation ABG pH ABG pCO2 ABG pO2 ABG HCO3 ABG O2 Content ABG Base Excess ABG Methemoglobin Hemoglobin Carboxyhemoglobin O2 Delivery Device Inspired O2 Critical Value Sodium Potassium Chloride Carbon Dioxide Anion Gap BUN Creatinine Estimated GFR POC Glucose Random Glucose Hemoglobin A1c Lactic Acid Calcium Prot Corrected Calcium Total Protein Nasal Screen MRSA (PCR) Mrsa detected Blood Type O Negative Blood Type Recheck Not needed Antibody Screen Negative MTS Gel Crossmatch See Detail 06/03/18 06/03/18 06/03/18 05:55 05:55 11:02 WBC RBC Hgb Hct MCV MCH MCHC RDW Plt Count MPV Neut % (Auto) Lymph % (Auto) [place] % (Auto) Eos % (Auto) Baso % (Auto) Neut # (Auto) Lymph # (Auto) [place] # (Auto) Eos # (Auto) Baso # (Auto) WBC Differential Differential Comment PT INR Puncture Site Patient Temperature O2 Saturation ABG pH ABG pCO2 ABG pO2 ABG HCO3 ABG O2 Content ABG Base Excess ABG Methemoglobin Hemoglobin Carboxyhemoglobin O2 Delivery Device Inspired O2 Critical Value Sodium 137 Potassium 3.4 L Chloride 105 Carbon Dioxide 19.4 L Anion Gap 13 BUN 67 H Creatinine 1.85 H Estimated GFR 39 L POC Glucose Random Glucose 170 H Hemoglobin A1c 7.5 H Lactic Acid 0.6 Calcium 6.7 L* D Prot Corrected Calcium 7.5 L Total Protein 5.4 L D Nasal Screen MRSA (PCR) Blood Type Blood Type Recheck Antibody Screen MTS Gel Crossmatch 06/03/18 06/03/18 06/03/18 11:03 14:05 15:02 WBC 19.7 H RBC 3.08 L Hgb 8.4 L Hct 25.7 L MCV 83.6 MCH 27.2 MCHC 32.6 RDW 17.5 H Plt Count 309 MPV 6.9 L Neut % (Auto) Lymph % (Auto) [place] % (Auto) Eos % (Auto) Baso % (Auto) Neut # (Auto) Lymph # (Auto) [place] # (Auto) Eos # (Auto) Baso # (Auto) WBC Differential Differential Comment PT 14.0 H INR 1.4 Puncture Site Patient Temperature O2 Saturation ABG pH ABG pCO2 ABG pO2 ABG HCO3 ABG O2 Content ABG Base Excess ABG Methemoglobin Hemoglobin Carboxyhemoglobin O2 Delivery Device Inspired O2 Critical Value Sodium Potassium Chloride Carbon Dioxide Anion Gap BUN Creatinine Estimated GFR POC Glucose 202 H Random Glucose Hemoglobin A1c Lactic Acid Calcium Prot Corrected Calcium Total Protein Nasal Screen MRSA (PCR) Blood Type Blood Type Recheck Antibody Screen MTS Gel Crossmatch Microbiology 06/02/18 18:48 Gram Stain - Final Wound - Foot Wound Culture - Preliminary Immature growth - reincubate 06/02/18 17:15 Gram Stain - Final Wound - Foot Wound Culture - Preliminary gram negative rods 06/02/18 16:20 Aerobic Blood Culture - Preliminary Blood - Peripheral Escherichia coli Anaerobic Blood Culture - Preliminary gram negative rods 06/02/18 16:25 Aerobic Blood Culture - Preliminary Blood - Peripheral gram negative rods Anaerobic Blood Culture - Preliminary gram negative rods 06/02/18 18:48 Fungal Smear - Final Wound - Foot No fungal elements seen Impressions Chest X-Ray 06/02/18 15:19 CONCLUSION: 1. Minimal right lung base airspace disease which may reflect atelectasis. Venous Doppler Study 06/02/18 15:46 CONCLUSION: 1. No sonographic evidence of lower extremity DVT. 2. Bilateral lower extremity subcutaneous edema. 3. Multiple lymph nodes seen in both groins, some of which are abnormally enlarged. Recommend clinical correlation. Foot X-Ray 06/02/18 15:52 CONCLUSION: Extensive subcutaneous air. No bone fracture or dislocation
--- NOTE | 2018-06-03 21:34 | MB ---
cc: Jena Dexter MD DATE: 06/02/2018 CONSULTING PHYSICIAN: Jean Dexter MD, Vascular Surgery REASON FOR CONSULTATION: Gangrene of the right foot, diabetes mellitus, respiratory failure, septic shock, CHF. CRITICAL CARE TIME: 34 minutes. HISTORY OF PRESENT ILLNESS: This 53-year-old male with known diabetes mellitus, presented to the hospital with a foul smelling infected right foot with gangrene. The patient has a history of congestive failure and diabetes mellitus is not taking medication, and is noncompliant with the care. 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 Leonard for debridement of the right foot. He was then transferred to the intensive care unit and he is now on the respirator on minimal vasopressors. The question arises where to go from here. PAST MEDICAL HISTORY: Diabetes mellitus, CHF, noncompliance with care due to financial reasons. PAST SURGICAL HISTORY: Laparoscopic cholecystectomy. SOCIAL HISTORY: The patient used to smoke; does not anymore. PHYSICAL EXAMINATION: GENERAL: Reveals a 53-year-old male, normocephalic, no trauma to the head. Pupils are equal and reactive. Extraocular muscles cannot be tested. The patient is on the respirator, fully ventilatory supported. CHEST: Bilateral breath sounds. HEART: Regular rate and rhythm. Hemodynamically, the patient is now stable, apparently was quite unstable through the night and required vasopressors. ABDOMEN: Soft. No rebound, no guarding, no masses. EXTREMITIES: The patient has palpable femoral pulses bilateral and dopplerable popliteal pulses bilateral. Distally, patient has right foot gangrene and there are no pulses present. On the left side, the patient has a wound of the posterior heel, but there is no deep sign infection, this is superficial. NEUROLOGIC: The patient was stable when he arrived. Now, he cannot be tested. He is on the ventilator. RECOMMENDATIONS: I agree with Dr. Leonard fully, patient needs immediate amputation of the foot. This was done in two stages. The patient will require guillotine amputation now and then closure of the same in a few days. In the meantime, the patient will have a wound VAC. I thank you very much for the referral. MD Chevy Marin , 07:53 PM , 08:01 PM
[2018-06-03] MEDS: fentaNYL 10 mcg/mL Premix Drip 2,500 MCG/250 ML BAG IV.SIG PRN (21:40)
--- NOTE | 2018-06-03 21:40 | MP ---
cc: Jean Dexter MD DATE OF OPERATION: 06/03/2018 PREOPERATIVE DIAGNOSIS: Gangrene of the right foot, diabetes mellitus, congestive heart failure. POSTOPERATIVE DIAGNOSIS: Gangrene of the right foot, diabetes mellitus, congestive heart failure. OPERATIVE PROCEDURE: Right below-knee guillotine amputation. SURGEON: Jean Dexter MD ANESTHESIA: General. ESTIMATED BLOOD LOSS: 100 mL DESCRIPTION OF PROCEDURE: The patient prepped and draped. INDICATIONS FOR PROCEDURE: This 53-year-old male presents with gangrene of the right foot and septic shock. He is currently on the ventilator with hemodynamic and respiratory support. The patient has gas gangrene of the right leg. The patient was prepped and draped in usual fashion. The incision was delineated with a silk string indentation, and then incision was made circumferentially about 4 inches above the ankle with a 10 blade, deepened down anteriorly to the tibia and fibula. Anterior tibial artery and veins were ligated. Posterior tibial artery was occluded, so was peroneal artery. Periosteum was elevated from the tibia, and then tibia and fibula were transected with oscillating saw, and posterior portion transected with amputation knife. Several stitches of 2-0 Vicryl were placed to control small bleeders, and the rest was controlled with electrocautery. Wound was washed with saline, and then wound VAC applied. The patient will have a second stage procedure, probably about 3-4 days from now, because there is still purulent material draining from this leg, proximal tissue. MD RACHID Marin/myesha , 09:06 PM , 09:12 PM
[2018-06-04] MEDS: Piperacil/Tazo 3.375 GM Premix 50 ML IV.SIG SCH ×4 (03:11→20:11)
--- NOTE | 2018-06-04 05:25 | XR ---
EXAM DATE: 06/04/2018 3:58 AM EDT AGE/SEX: 53 years / Male INDICATIONS: Respiratory disease. CLINICAL DATA: This is the patient's subsequent encounter. Patient reports that signs and symptoms h ave been present for 3 days and indicates a pain score of Nonresponsive. MEDICAL/SURGICAL HISTORY: Non-responsive. Non-responsive. [place] [facility] [place]. . FINDINGS: Moderate right and small left pleural effusions with basilar consolidation present and both sides peg ear worse in the interim. I don't see a pneumothorax. Heart size stable, within normal limits. Patient is now intubated. Endotracheal tube tip is approximately 4 cm above the diamond. There is a na sogastric tube coursing into the stomach. A left subclavian central venous catheter has been placed, tip in the superior vena cava. Healed left clavicle fracture again noted. CONCLUSION: 1. Worsening bibasilar consolidation and effusions as described. 2. Patient now intubated. Nasogastric tube and left subclavian central venous line also placed. All appear appropriately positioned. No pneumothorax. Electronically signed by: Anton Vasquez MD 06/04/2018 5:24 AM EDT
[2018-06-04 05:48] LABS: Hemoglobin 8.3 gm/dL (13.0-17.0); Mean Corpuscular Hemoglobin 27.7 pg (27.0-34.0); Mean Corpuscular Volume 83.9 fL (80.0-100.0); Mean Platelet Volume 6.9 fL (7.0-11.0); Platelet Count 300 th/mm3 (150-450); Red Blood Count 2.98 mil/mm3 (4.50-5.90); Red Cell Distribution Width 18.1 % (11.6-17.2); White Blood Count 20.5 th/mm3 (4.0-11.0)
[2018-06-04 06:03] LABS: Albumin 0.6 g/dL (3.4-5.0); Calcium 7.1 mg/dL (8.5-10.1); Carbon Dioxide 19.7 meq/L (21.0-32.0); Potassium 3.1 meq/L (3.5-5.1); Total Protein 5.5 g/dL (6.4-8.2)
[2018-06-04] MEDS: Heparin - SQ 10,000 UNITS/ML Vial SQ SCH ×3 (06:12→21:59)
[2018-06-04] MEDS: Famotidine PF Inj 20 MG/2 ML Vial IV.PUSH SCH ×2 (08:19→20:10)
[2018-06-04] MEDS: Insulin NovoLOG Aspart Correctional Sugar Inj SQ SCH ×4 (10:00→20:11)
--- NOTE | 2018-06-04 10:37 | P.PNVS ---
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 Wound VAC in place It should be noted that the time of surgery patient had purulent drainage from the proximal portion of the amputation so will take a few days before patient is ready for any further surgery In the best case scenario will undergo washout of the stump and closure on Thursday but depending on what it looks like I may delay the final closure for another few days after that In the meantime patient can be safely extubated and transferred to floor when stable Objective Vital Signs / I&O: Vital Signs 06/03/18 12:00 06/03/18 12:19 06/03/18 14:00 Temperature 99.4 F Pulse Rate 96 H 92 H Respiratory Rate 14 14 Blood Pressure 108/50 L Pulse Oximetry 100 100 06/03/18 16:00 06/03/18 16:53 06/03/18 18:00 Temperature 99.3 F Pulse Rate 90 90 Respiratory Rate 14 14 Blood Pressure 118/50 L Pulse Oximetry 100 100 06/03/18 19:15 06/03/18 19:30 06/03/18 20:00 Temperature 98.1 F Pulse Rate 91 H Respiratory Rate 14 15 Blood Pressure 113/67 Pulse Oximetry 100 100 100 06/03/18 22:00 06/03/18 23:20 06/04/18 00:00 Temperature 97.7 F Pulse Rate 84 86 Respiratory Rate 14 14 Blood Pressure 150/61 H Pulse Oximetry 100 100 06/04/18 02:00 06/04/18 04:00 06/04/18 06:00 Temperature 98.6 F Pulse Rate 94 H 86 88 Respiratory Rate 14 Blood Pressure 127/67 Pulse Oximetry 100 06/04/18 08:00 06/04/18 10:00 06/04/18 10:24 Temperature 98.2 F Pulse Rate 77 84 Respiratory Rate 14 14 Blood Pressure 123/74 Pulse Oximetry 100 100 Intake & Output 06/03/18 06/04/18 06/04/18 18:59 06:59 18:59 Intake Total 270 / 270 2467.5 / 2467.5 Output Total 600 / 600 750 / 750 Balance -330 / -330 1717.5 / 1717.5 Weight 93.1 kg Intake: IV 270 / 270 1867.5 / 1867.5 Versed Inj 50 mg In 50 ml @ 2 50 / 50 MG/HR 2 mls/hr IV.CONT TITRATE PRN Rx#:[id number] NS Inj 1,000 ML @ 42 mls/hr IV. 1000 / 1000 CONT .[id number] [facility] Rx#:[id number] Calcium Gluconate Inj 2 GM In 120 / 120 NS Inj 100 ML @ 120 mls/hr IV. SIG ONCE ONE Rx#:[id number] Cleocin 900 mg/NS Premix 900 mg 50 / 50 In 50 ml @ 100 mls/hr IV.SIG Q6H [facility] Rx#:[id number] Zosyn 3.375 GM Premix 50 ML @ 50 / 50 100 / 100 100 mls/hr IV.SIG Q6H [facility] Rx#: [id number] Vancomycin Inj 1,750 MG In NS 517.5 / 517.5 Inj 500 ML @ 250 mls/hr IV.SIG ONCE ONE Rx#:[id number] fentaNYL 10 mcg/mL Premix Drip 250 / 250 2,500 mcg In 250 ml @ 50 MCG/HR 5 mls/hr IV.SIG TITRATE PRN Rx #:[id number] Anesthesia Amount 600 / 600 Output: Estimated Blood Loss 100 / 100 Urine Amount (Catheter) 550 / 550 500 / 500 Indwelling Urethral Catheter 550 / 550 500 / 500 Gastric Drainage 50 / 50 100 / 100 Orogastric Tube 50 / 50 100 / 100 Wound Vac Amount 50 / 50 Right Leg 50 / 50 Other: Mode Setting Right Leg Continuous Laboratory Results - last 24 hr 06/03/18 06/03/18 06/03/18 05:55 11:02 11:03 WBC RBC Hgb Hct MCV MCH MCHC RDW Plt Count MPV PT INR Sodium Potassium Chloride Carbon Dioxide Anion Gap BUN Creatinine Estimated GFR POC Glucose 202 H Random Glucose Hemoglobin A1c 7.5 H Lactic Acid 0.6 Calcium Prot Corrected Calcium Magnesium Total Bilirubin AST ALT Alkaline Phosphatase Total Protein Albumin 06/03/18 06/03/18 06/03/18 14:05 15:02 21:33 WBC 19.7 H RBC 3.08 L Hgb 8.4 L Hct 25.7 L MCV 83.6 MCH 27.2 MCHC 32.6 RDW 17.5 H Plt Count 309 MPV 6.9 L PT 14.0 H INR 1.4 Sodium Potassium Chloride Carbon Dioxide Anion Gap BUN Creatinine Estimated GFR POC Glucose 113 H Random Glucose Hemoglobin A1c Lactic Acid Calcium Prot Corrected Calcium Magnesium Total Bilirubin AST ALT Alkaline Phosphatase Total Protein Albumin 06/04/18 06/04/18 05:15 05:15 WBC 20.5 H RBC 2.98 L Hgb 8.3 L Hct 25.0 L MCV 83.9 MCH 27.7 MCHC 33.0 RDW 18.1 H Plt Count 300 MPV 6.9 L PT INR Sodium 139 Potassium 3.1 L Chloride 108 H Carbon Dioxide 19.7 L Anion Gap 11 BUN 65 H Creatinine 1.72 H Estimated GFR 42 L POC Glucose Random Glucose 116 H Hemoglobin A1c Lactic Acid Calcium 7.1 L* Prot Corrected Calcium 7.9 L Magnesium 2.0 Total Bilirubin 0.5 AST 16 ALT 11 L Alkaline Phosphatase 139 H Total Protein 5.5 L Albumin 0.6 L Microbiology 06/02/18 16:25 Aerobic Blood Culture - Preliminary Blood - Peripheral gram negative rods Anaerobic Blood Culture - Preliminary gram negative rods 06/02/18 16:20 Aerobic Blood Culture - Preliminary Blood - Peripheral Escherichia coli Anaerobic Blood Culture - Preliminary gram negative rods 06/02/18 17:15 Gram Stain - Final Wound - Foot Wound Culture - Preliminary Escherichia coli gram negative rods S. aureus MRSA 06/02/18 18:48 Gram Stain - Final Wound - Foot Wound Culture - Preliminary Immature growth - reincubate 06/02/18 18:48 Fungal Smear - Final Wound - Foot No fungal elements seen Impressions Chest X-Ray 06/02/18 15:19 CONCLUSION: 1. Minimal right lung base airspace disease which may reflect atelectasis. Venous Doppler Study 06/02/18 15:46 CONCLUSION: 1. No sonographic evidence of lower extremity DVT. 2. Bilateral lower extremity subcutaneous edema. 3. Multiple lymph nodes seen in both groins, some of which are abnormally enlarged. Recommend clinical correlation. Foot X-Ray 06/02/18 15:52 CONCLUSION: Extensive subcutaneous air. No bone fracture or dislocation Chest X-Ray 06/04/18 06:00 CONCLUSION: 1. Worsening bibasilar consolidation and effusions as described. 2. Patient now intubated. Nasogastric tube and left subclavian central venous line also placed. All appear appropriately positioned. No pneumothorax.
[2018-06-04] MEDS: Senna/Docusate Sodium 8.6/50 MG Tablet PO SCH ×2 (11:38→20:10)
--- NOTE | 2018-06-04 13:59 | P.PNCC ---
Subjective Subjective Remarks/Hospital Course: 53-year-old male presented to emergency department today with complaints of shortness of breath, fatigue, and extensive draining edema of the lower extremities bilaterally. Per chart review his symptoms started 5 days ago and the swelling of his lower legs and feet have progressively gotten worse over the past 5 days. The patient also has had pain in the back of both lower extremities from the knees to the toes. He denied chest pain. He has a history of type-II diabetes mellitus and congestive heart failure. He has not taken any of his regular medications for the past 3 weeks due to financial limitations. During the examination in the emergency department he was found to have gangrene of the right foot and was emergently taken to operating room for an incision and drainage with debridement of foot and ankle. Postoperatively he remains intubated and was admitted to ICU for critical care management. SUBJ: s/p Incision drainage debridement foot ankle and distal leg, for gas gangrene. Remains in septic shock on Levophed. Remains intubated sedated. Currently on vancomycin and Zosyn I have added clindamycin. Cultures and wound cultures pending . Vascular surgery consult also pending. Received 2 units PRBC for hemoglobin of 5.3 06/04/18: Patient had been weaned off all pressors. Wakes up easily follows commands. 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 WBC count remains elevated but renal function improving. Hemoglobin stable. Multiple blood cultures growing E. coli. Wound culture with E. coli, MRSA, gram-negative rods. Continue Zosyn and vancomycin Objective Vital Signs / I&O: Vital Signs 06/03/18 14:00 06/03/18 16:00 06/03/18 16:53 Temperature 99.3 F Pulse Rate 92 H 90 Respiratory Rate 14 14 Blood Pressure 118/50 L Pulse Oximetry 100 100 06/03/18 18:00 06/03/18 19:15 06/03/18 19:30 Temperature Pulse Rate 90 Respiratory Rate 14 Blood Pressure Pulse Oximetry 100 100 06/03/18 20:00 06/03/18 22:00 06/03/18 23:20 Temperature 98.1 F Pulse Rate 91 H 84 Respiratory Rate 15 14 Blood Pressure 113/67 Pulse Oximetry 100 100 06/04/18 00:00 06/04/18 02:00 06/04/18 04:00 Temperature 97.7 F 98.6 F Pulse Rate 86 94 H 86 Respiratory Rate 14 14 Blood Pressure 150/61 H 127/67 Pulse Oximetry 100 100 06/04/18 06:00 06/04/18 08:00 06/04/18 10:00 Temperature 98.2 F Pulse Rate 88 77 84 Respiratory Rate 14 Blood Pressure 123/74 Pulse Oximetry 100 06/04/18 10:24 06/04/18 12:00 Temperature 97.7 F Pulse Rate 92 H Respiratory Rate 14 14 Blood Pressure 105/58 L Pulse Oximetry 100 100 Intake & Output 06/03/18 06/04/18 06/04/18 18:59 06:59 18:59 Intake Total 270 / 270 2467.5 / 2467.5 50 / 50 Output Total 600 / 600 750 / 750 Balance -330 / -330 1717.5 / 1717.5 50 / 50 Weight 93.1 kg Intake: IV 270 / 270 1867.5 / 1867.5 50 / 50 Versed Inj 50 mg In 50 ml @ 2 50 / 50 MG/HR 2 mls/hr IV.CONT TITRATE PRN Rx#:[id number] NS Inj 1,000 ML @ 42 mls/hr IV. 1000 / 1000 CONT .[id number] [facility] Rx#:[id number] Calcium Gluconate Inj 2 GM In 120 / 120 NS Inj 100 ML @ 120 mls/hr IV. SIG ONCE ONE Rx#:[id number] Cleocin 900 mg/NS Premix 900 mg 50 / 50 In 50 ml @ 100 mls/hr IV.SIG Q6H [facility] Rx#:[id number] Zosyn 3.375 GM Premix 50 ML @ 50 / 50 100 / 100 50 / 50 100 mls/hr IV.SIG Q6H [facility] Rx#: [id number] Vancomycin Inj 1,750 MG In NS 517.5 / 517.5 Inj 500 ML @ 250 mls/hr IV.SIG ONCE ONE Rx#:[id number] fentaNYL 10 mcg/mL Premix Drip 250 / 250 2,500 mcg In 250 ml @ 50 MCG/HR 5 mls/hr IV.SIG TITRATE PRN Rx #:[id number] Anesthesia Amount 600 / 600 Output: Estimated Blood Loss 100 / 100 Urine Amount (Catheter) 550 / 550 500 / 500 Indwelling Urethral Catheter 550 / 550 500 / 500 Gastric Drainage 50 / 50 100 / 100 Orogastric Tube 50 / 50 100 / 100 Wound Vac Amount 50 / 50 Right Leg 50 / 50 Other: Mode Setting Right Leg Continuous Result Diagrams: 06/04/18 05:15 06/04/18 05:15 Objective Remarks: - Constitutional Intubated, sedated - Routine HEENT Exam Head: Present: normocephalic, atraumatic Eye: Present: PERRL, ENT: Orotracheally intubated - Routine Neck Exam Present: supple. Absent: JVD, carotid bruit - Routine Respiratory Exam Present: patient mechanically ventilated. No rhonchi, stridor, wheezes, crackles - Routine Cardiovascular Exam Present: RRR, S1, S2. Hemodynamically stable - Routine Abdominal Exam Present: soft, normoactive bowel sounds. Absent: tenderness, distended - Routine Extremities Exam Status post right BKA, wound VAC in place. L heel ulcer - Routine Neurological Exam Awake alert following commands writing on paper sheet. No focal deficits Assessment and Plan - Assessment and Plan Plan: A/P Neuro: -Versed and fentanyl for sedation and vent synchrony -Hold all sedation for weaning trial -Pain adequately controlled -Start as needed morphine for pain control Resp: Post Respiratory failure -Vent bundle, -DuoNeb's as needed -SBT with possible extubation CVS/ID Septic shock Gangrene of the right foot -Broad-spectrum antibiotic with vancomycin and Zosyn, and ID DC'd clindamycin -Multiple blood cultures with E. coli, wound culture with E. coli, gram- negative ankur, MRSA -Status post I&D and debridement, status post BKA yesterday by Dr. Quiles -Continue IV fluid and blood product resuscitation -Levophed as needed to keep MAP above 65-now off HEME Blood loss anemia -s/p 3 units of PRBC now -Monitor H&H and transfuse to keep hemoglobin above 8 : Acute kidney injury -Strict I's and O's. IV fluid hydration -Monitor electrolytes and creatinine level -Creatinine has improved, urine output adequate GI: -NPO, IV famotidine -Swallow eval after extubation start diet if tolerated Endo: Diabetes mellitus -Insulin sliding scale DVT GI prophylaxis -Teds SCDs -Heparin subcu-if okay with surgeon -Pepcid 35 minutes of CCT Patient at this time remains critically ill from septic shock from gangrene of the right foot. Vascular surgery and infectious disease consults are following. Code Status: Full
[2018-06-04] MEDS ORDERED: Magnesium Sulfate Inj 2 GM in Sodium Chlor 0.9% Inj 96 ML IV.SIG PRN (14:00)
[2018-06-04] MEDS ORDERED: Potassium Phosphate Inj 30 MMOL in Sodium Chlor 0.9% Inj 250 ML IV.SIG PRN (14:00)
[2018-06-04] MEDS ORDERED: Potassium Chlor 40 mEq Premix 40 MEQ/100 ML PIGGYBACK IV.SIG PRN (14:00)
[2018-06-04] MEDS ORDERED: Sodium Phosphate Inj 30 MMOL in Sodium Chlor 0.9% Inj 250 ML IV.SIG PRN (14:00)
[2018-06-04] MEDS ORDERED: Potassium Chlor 20 mEq Premix 20 MEQ/100 ML PIGGYBACK IV.SIG PRN ×2 (14:00)
[2018-06-04] MEDS ORDERED: Potassium Phosphate 500 MG Soluble Tablet PO PRN ×2 (14:00)
[2018-06-04] MEDS ORDERED: Magnesium Sulfate Inj 4 GM in Sodium Chlor 0.9% Inj 92 ML IV.SIG PRN (14:00)
[2018-06-04] MEDS ORDERED: Potassium Chloride 25 MEQ Effervescent Tablet PO PRN (14:00)
[2018-06-04] MEDS ORDERED: Magnesium Oxide 400 MG Tablet PO PRN (14:00)
--- NOTE | 2018-06-04 15:04 | P.PNID ---
Subjective Remarks: sp amputation below knee with VAC placment doing better growing MRSA along with enteric GNBs from the wound Antibiotics: vanco zosyn Allergies/Adverse Reactions: Allergies No Known Allergies Allergy (Unverified 06/02/18 15:19) Objective Vital Signs 06/03/18 16:00 06/03/18 16:53 06/03/18 18:00 Temperature 99.3 F Pulse Rate 90 90 Respiratory Rate 14 14 Blood Pressure 118/50 L Pulse Oximetry 100 100 06/03/18 19:15 06/03/18 19:30 06/03/18 20:00 Temperature 98.1 F Pulse Rate 91 H Respiratory Rate 14 15 Blood Pressure 113/67 Pulse Oximetry 100 100 100 06/03/18 22:00 06/03/18 23:20 06/04/18 00:00 Temperature 97.7 F Pulse Rate 84 86 Respiratory Rate 14 14 Blood Pressure 150/61 H Pulse Oximetry 100 100 06/04/18 02:00 06/04/18 04:00 06/04/18 06:00 Temperature 98.6 F Pulse Rate 94 H 86 88 Respiratory Rate 14 Blood Pressure 127/67 Pulse Oximetry 100 06/04/18 08:00 06/04/18 10:00 06/04/18 10:24 Temperature 98.2 F Pulse Rate 77 84 Respiratory Rate 14 14 Blood Pressure 123/74 Pulse Oximetry 100 100 06/04/18 12:00 06/04/18 14:00 Temperature 97.7 F Pulse Rate 92 H 98 H Respiratory Rate 14 Blood Pressure 105/58 L Pulse Oximetry 100 Intake & Output 06/03/18 06/04/18 06/04/18 18:59 06:59 18:59 Intake Total 270 / 270 2467.5 / 2467.5 50 / 50 Output Total 600 / 600 750 / 750 Balance -330 / -330 1717.5 / 1717.5 50 / 50 Weight 93.1 kg Intake: IV 270 / 270 1867.5 / 1867.5 50 / 50 Versed Inj 50 mg In 50 ml @ 2 50 / 50 MG/HR 2 mls/hr IV.CONT TITRATE PRN Rx#:[id number] NS Inj 1,000 ML @ 42 mls/hr IV. 1000 / 1000 CONT .[id number] [facility] Rx#:[id number] Calcium Gluconate Inj 2 GM In 120 / 120 NS Inj 100 ML @ 120 mls/hr IV. SIG ONCE ONE Rx#:[id number] Cleocin 900 mg/NS Premix 900 mg 50 / 50 In 50 ml @ 100 mls/hr IV.SIG Q6H [facility] Rx#:[id number] Zosyn 3.375 GM Premix 50 ML @ 50 / 50 100 / 100 50 / 50 100 mls/hr IV.SIG Q6H [facility] Rx#: [id number] Vancomycin Inj 1,750 MG In NS 517.5 / 517.5 Inj 500 ML @ 250 mls/hr IV.SIG ONCE ONE Rx#:[id number] fentaNYL 10 mcg/mL Premix Drip 250 / 250 2,500 mcg In 250 ml @ 50 MCG/HR 5 mls/hr IV.SIG TITRATE PRN Rx #:[id number] Anesthesia Amount 600 / 600 Output: Estimated Blood Loss 100 / 100 Urine Amount (Catheter) 550 / 550 500 / 500 Indwelling Urethral Catheter 550 / 550 500 / 500 Gastric Drainage 50 / 50 100 / 100 Orogastric Tube 50 / 50 100 / 100 Wound Vac Amount 50 / 50 Right Leg 50 / 50 Other: Mode Setting Right Leg Continuous 06/02/18 18:48 Wound - Foot Acid Fast Bacilli Smear - Final No acid fast bacilli seen 06/02/18 18:48 Wound - Foot Mycobacterial Culture - Pending 06/02/18 18:48 Wound - Foot Gram Stain - Final 06/02/18 18:48 Wound - Foot Wound Culture - Preliminary Escherichia coli 06/02/18 16:25 Blood - Peripheral Aerobic Blood Culture - Preliminary gram negative rods 06/02/18 16:25 Blood - Peripheral Anaerobic Blood Culture - Preliminary gram negative rods 06/02/18 16:20 Blood - Peripheral Aerobic Blood Culture - Preliminary Escherichia coli 06/02/18 16:20 Blood - Peripheral Anaerobic Blood Culture - Preliminary gram negative rods 06/02/18 17:15 Wound - Foot Gram Stain - Final 06/02/18 17:15 Wound - Foot Wound Culture - Preliminary Escherichia coli gram negative rods S. aureus MRSA 06/02/18 18:48 Wound - Foot Fungal Smear - Final No fungal elements seen 06/02/18 18:48 Wound - Foot Fungal Culture - Pending Lab - Hematology Results 06/02/18 06/02/18 06/02/18 16:20 16:20 23:45 WBC 19.8 H RBC 2.82 L Hgb 7.8 L 5.2 L* D Hct 23.6 L 16.0 L* MCV 83.8 MCH 27.7 MCHC 33.1 RDW 16.7 Plt Count 430 MPV 7.1 Neut % (Auto) 95.6 H Lymph % (Auto) 2.9 L Stephens % (Auto) 1.4 Eos % (Auto) 0.0 Baso % (Auto) 0.1 Neut # (Auto) 18.9 H Lymph # (Auto) 0.6 L Stephens # (Auto) 0.3 Eos # (Auto) 0.0 Baso # (Auto) 0.0 WBC Differential . Differential Comment Auto diff final ESR Greater than 140 H 06/03/18 06/03/18 06/04/18 05:55 15:02 05:15 WBC 19.3 H 19.7 H 20.5 H RBC 2.95 L 3.08 L 2.98 L Hgb 8.3 L D 8.4 L 8.3 L Hct 24.3 L 25.7 L 25.0 L MCV 82.4 83.6 83.9 MCH 28.1 27.2 27.7 MCHC 34.1 32.6 33.0 RDW 17.1 17.5 H 18.1 H Plt Count 276 D 309 300 MPV 6.8 L 6.9 L 6.9 L Neut % (Auto) 88.1 H Lymph % (Auto) 6.9 L Stephens % (Auto) 4.8 Eos % (Auto) 0.0 Baso % (Auto) 0.2 Neut # (Auto) 17.0 H Lymph # (Auto) 1.3 Stephens # (Auto) 0.9 Eos # (Auto) 0.0 Baso # (Auto) 0.0 WBC Differential . Differential Comment Auto diff final ESR Lab - Chemistry Results 06/02/18 06/02/18 06/02/18 16:20 16:20 16:20 Sodium 132 L Potassium 3.8 Chloride 100 Carbon Dioxide 19.0 L Anion Gap 13 BUN 71 H Creatinine 2.24 H Estimated GFR 31 L POC Glucose Random Glucose 189 H Hemoglobin A1c Lactic Acid 1.9 Calcium 7.7 L Prot Corrected Calcium Magnesium Total Bilirubin 0.7 AST 25 ALT 15 Alkaline Phosphatase 175 H Total Creatine Kinase 66 Troponin I Less than 0.02 L C-Reactive Protein B-Natriuretic Peptide 1121 H Total Protein 6.9 Albumin 0.9 L 06/02/18 06/02/18 06/02/18 16:20 16:20 21:34 Sodium Potassium Chloride Carbon Dioxide Anion Gap BUN Creatinine Estimated GFR POC Glucose 238 H Random Glucose Cancelled Hemoglobin A1c Lactic Acid Calcium Prot Corrected Calcium Magnesium Total Bilirubin AST ALT Alkaline Phosphatase Total Creatine Kinase Troponin I C-Reactive Protein 17.60 H B-Natriuretic Peptide Total Protein Albumin 06/03/18 06/03/18 06/03/18 05:55 05:55 11:02 Sodium 137 Potassium 3.4 L Chloride 105 Carbon Dioxide 19.4 L Anion Gap 13 BUN 67 H Creatinine 1.85 H Estimated GFR 39 L POC Glucose Random Glucose 170 H Hemoglobin A1c 7.5 H Lactic Acid 0.6 Calcium 6.7 L* D Prot Corrected Calcium 7.5 L Magnesium Total Bilirubin AST ALT Alkaline Phosphatase Total Creatine Kinase Troponin I C-Reactive Protein B-Natriuretic Peptide Total Protein 5.4 L D Albumin 06/03/18 06/03/18 06/04/18 11:03 21:33 05:15 Sodium 139 Potassium 3.1 L Chloride 108 H Carbon Dioxide 19.7 L Anion Gap 11 BUN 65 H Creatinine 1.72 H Estimated GFR 42 L POC Glucose 202 H 113 H Random Glucose 116 H Hemoglobin A1c Lactic Acid Calcium 7.1 L* Prot Corrected Calcium 7.9 L Magnesium 2.0 Total Bilirubin 0.5 AST 16 ALT 11 L Alkaline Phosphatase 139 H Total Creatine Kinase Troponin I C-Reactive Protein B-Natriuretic Peptide Total Protein 5.5 L Albumin 0.6 L 06/04/18 11:58 Sodium Potassium Chloride Carbon Dioxide Anion Gap BUN Creatinine Estimated GFR POC Glucose 141 H Random Glucose Hemoglobin A1c Lactic Acid Calcium Prot Corrected Calcium Magnesium Total Bilirubin AST ALT Alkaline Phosphatase Total Creatine Kinase Troponin I C-Reactive Protein B-Natriuretic Peptide Total Protein Albumin Imaging: ITS Impressions Venous Doppler Study 06/02/18 15:46 CONCLUSION: 1. No sonographic evidence of lower extremity DVT. 2. Bilateral lower extremity subcutaneous edema. 3. Multiple lymph nodes seen in both groins, some of which are abnormally enlarged. Recommend clinical correlation. Foot X-Ray 06/02/18 15:52 CONCLUSION: Extensive subcutaneous air. No bone fracture or dislocation Chest X-Ray 06/04/18 06:00 CONCLUSION: 1. Worsening bibasilar consolidation and effusions as described. 2. Patient now intubated. Nasogastric tube and left subclavian central venous line also placed. All appear appropriately positioned. No pneumothorax. Physical Exam: GENERAL: NA sedated on vent SKIN: Warm and dry. HEAD: Atraumatic. Normocephalic. EYES: Pupils equal and round. No scleral icterus. No injection or drainage. ENT: No nasal bleeding or discharge. Mucous membranes pink and moist. NECK: Trachea midline. No JVD. CARDIOVASCULAR: Regular rate and rhythm. RESPIRATORY: No accessory muscle use. Clear to auscultation. Breath sounds equal bilaterally. GASTROINTESTINAL: Abdomen soft, non-tender, nondistended. Hepatic and splenic margins not palpable. MUSCULOSKELETAL: Extremities without clubbing, cyanosis, or edema. 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
[2018-06-04] MEDS: Morphine Inj 4 MG/ML Vial IV.PUSH PRN (16:55)
[2018-06-04] MEDS: Sod Chloride 0.9% Inj 1,000 ML IV.CONT SCH (18:46)
[2018-06-04] MEDS: Potassium Chlor 40 mEq Premix 40 MEQ/100 ML PIGGYBACK IV.SIG PRN ×2 (20:43→22:44)
--- NOTE | 2018-06-05 03:55 | XR ---
EXAM DATE: 06/05/2018 3:52 AM EDT AGE/SEX: 53 years / Male INDICATIONS: Shortness of breath CLINICAL DATA: This is the patient's subsequent encounter. Patient reports that signs and symptoms h ave been present for 4 - 6 days and indicates a pain score of Nonresponsive. MEDICAL/SURGICAL HISTORY: Congestive heart failure. Diabetes. Cholecystectomy. COMPARISON: [facility] – [place], CHEST 1V SINGLE AP, 06/04/2018. . FINDINGS: Moderate right and small left pleural effusions with basilar consolidation again noted and similar to before. No pneumothorax demonstrated. Endotracheal tube and nasogastric tube been removed. A left subclavian central venous catheter remain s in place, tip in the superior vena cava. CONCLUSION: Interim extubation and nasogastric tube removal. No significant change right greater the left pleural effusions and basilar consolidation. Electronically signed by: Anton Vasquez MD 06/05/2018 3:54 AM EDT
[2018-06-05] MEDS: Piperacil/Tazo 3.375 GM Premix 50 ML IV.SIG SCH ×4 (04:12→20:39)
[2018-06-05 04:49] LABS: Hematocrit 28.3 % (39.0-51.0); Hemoglobin 9.3 gm/dL (13.0-17.0); Mean Corpuscular HGB Conc 32.9 % (32.0-36.0); Mean Corpuscular Hemoglobin 27.7 pg (27.0-34.0); Mean Corpuscular Volume 84.3 fL (80.0-100.0); Mean Platelet Volume 6.7 fL (7.0-11.0); Platelet Count 252 th/mm3 (150-450); Red Blood Count 3.36 mil/mm3 (4.50-5.90); Red Cell Distribution Width 18.3 % (11.6-17.2); White Blood Count 18.5 th/mm3 (4.0-11.0)
[2018-06-05 05:29] LABS: Albumin 0.6 g/dL (3.4-5.0); Calcium 6.7 mg/dL (8.5-10.1); Carbon Dioxide 17.4 meq/L (21.0-32.0); Potassium 3.9 meq/L (3.5-5.1); Total Protein 5.5 g/dL (6.4-8.2); Vancomycin,Random 23.2 Comment
[2018-06-05] MEDS: Heparin - SQ 10,000 UNITS/ML Vial SQ SCH ×3 (06:13→22:39)
[2018-06-05] MEDS: Famotidine PF Inj 20 MG/2 ML Vial IV.PUSH SCH ×2 (09:07→20:35)
[2018-06-05] MEDS: Senna/Docusate Sodium 8.6/50 MG Tablet PO SCH ×2 (09:08→20:36)
[2018-06-05] MEDS: Insulin NovoLOG Aspart Correctional Sugar Inj SQ SCH ×4 (09:45→20:34)
--- NOTE | 2018-06-05 11:53 | P.PNCC ---
Subjective Subjective Remarks/Hospital Course: 53-year-old male presented to emergency department today with complaints of shortness of breath, fatigue, and extensive draining edema of the lower extremities bilaterally. Per chart review his symptoms started 5 days ago and the swelling of his lower legs and feet have progressively gotten worse over the past 5 days. The patient also has had pain in the back of both lower extremities from the knees to the toes. He denied chest pain. He has a history of type-II diabetes mellitus and congestive heart failure. He has not taken any of his regular medications for the past 3 weeks due to financial limitations. During the examination in the emergency department he was found to have gangrene of the right foot and was emergently taken to operating room for an incision and drainage with debridement of foot and ankle. Postoperatively he remains intubated and was admitted to ICU for critical care management. SUBJ: s/p Incision drainage debridement foot ankle and distal leg, for gas gangrene. Remains in septic shock on Levophed. Remains intubated sedated. Currently on vancomycin and Zosyn I have added clindamycin. Cultures and wound cultures pending . Vascular surgery consult also pending. Received 2 units PRBC for hemoglobin of 5.3 06/04/18: Patient had been weaned off all pressors. Wakes up easily follows commands. 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 WBC count remains elevated but renal function improving. Hemoglobin stable. Multiple blood cultures growing E. coli. Wound culture with E. coli, MRSA, gram-negative rods. Continue Zosyn and vancomycin 06/05: Remains off vasopressors. Alert and conversant. Encephalopathy clearing. Blood and wound organisms identified, antibiotic coverage appropriate. Objective Vital Signs / I&O: Vital Signs 06/04/18 12:00 06/04/18 14:00 06/04/18 16:00 Temperature 97.7 F 97.2 F L Pulse Rate 92 H 98 H 100 H Respiratory Rate 14 11 L Blood Pressure 105/58 L 120/71 Pulse Oximetry 100 98 06/04/18 18:00 06/04/18 20:00 06/04/18 21:01 Temperature 97.7 F Pulse Rate 98 H 99 H Respiratory Rate 17 Blood Pressure 112/64 Pulse Oximetry 96 99 06/04/18 22:00 06/05/18 00:00 06/05/18 02:00 Temperature 97.6 F Pulse Rate 91 H 94 H 90 Respiratory Rate 12 Blood Pressure 133/63 Pulse Oximetry 94 L 06/05/18 04:00 06/05/18 06:00 06/05/18 08:02 Temperature 98.2 F Pulse Rate 88 90 Respiratory Rate 16 Blood Pressure 113/67 Pulse Oximetry 95 98 Intake & Output 06/04/18 06/05/18 06/05/18 18:59 06:59 18:59 Intake Total 300 / 300 390 / 390 150 / 150 Output Total 650 / 650 670 / 670 Balance -350 / -350 -280 / -280 150 / 150 Weight 93.1 kg Intake: IV 100 / 100 150 / 150 150 / 150 Zosyn 3.375 GM Premix 50 ML @ 100 / 100 100 / 100 50 / 50 100 mls/hr IV.SIG Q6H [facility] Rx#: [id number] KCl 40 mEq Premix Inj 40 meq In 50 / 50 100 / 100 100 ml @ 50 mls/hr IV.SIG Q2H PRN Rx#:[id number] Oral 200 / 200 240 / 240 Output: Estimated Blood Loss 100 / 100 Urine Amount (Catheter) 600 / 600 550 / 550 Indwelling Urethral Catheter 600 / 600 550 / 550 Wound Vac Amount 50 / 50 20 / 20 Right Leg 50 / 50 20 / 20 Result Diagrams: 06/05/18 04:10 06/05/18 04:10 Objective Remarks: - Constitutional Intubated, sedated - Routine HEENT Exam Head: Present: normocephalic, atraumatic Eye: Present: PERRL, ENT: Airway widely patent, no obstructive noises. - Routine Neck Exam Present: supple. - Routine Respiratory Exam Present: Comfortable respiratory pattern, clear. No rhonchi, stridor, wheezes, crackles - Routine Cardiovascular Exam Present: RRR, S1, S2. Hemodynamically stable. No JVD. - Routine Abdominal Exam Present: soft, normoactive bowel sounds, no guarding. Absent: tenderness, distended - Routine Extremities Exam Status post right BKA, wound VAC in place. L heel ulcer - Routine Neurological Exam Awake alert following commands. Conversant. No focal deficits Assessment and Plan - Assessment and Plan Plan: A/P Neuro: -Pain adequately controlled -As needed morphine for pain control Resp: Post Respiratory failure -Extubated, breathing comfortably. CVS/ID Septic shock Gangrene of the right foot -Broad-spectrum antibiotic with vancomycin and Zosyn, and ID DC'd clindamycin -Multiple blood cultures with E. coli, wound culture with E. coli, gram- negative ankur, MRSA -Status post I&D and debridement, status post BKA yesterday by Dr. Quiles -Continue IV fluid and blood product resuscitation -Levophed as needed to keep MAP above 65-now off, discontinued HEME Blood loss anemia -s/p 3 units of PRBC now -Monitor H&H and transfuse to keep hemoglobin above 7 : Acute kidney injury -Strict I's and O's. IV fluid hydration -Monitor electrolytes and creatinine level -Creatinine has improved, urine output adequate ID: Gangrenous right foot. Bacteremia -Vancomycin and Zosyn -E coli bacteremia -MRSA, E coli in foot, obviously other organisms as well GI: -NPO, IV famotidine -Swallow eval, start diet if tolerated Endo: Diabetes mellitus -Insulin sliding scale DVT GI prophylaxis -Teds SCDs -Heparin subcu-if okay with surgeon -Luke Overall impression: This gentleman was critically ill and in severe sepsis from E. coli bacteremia related to gangrene of his right foot. He is progressed well following source control right lower extremity amputation. Now weaned off vasopressors.
--- NOTE | 2018-06-05 14:17 | P.PNVS ---
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 Wound VAC in place It should be noted that the time of surgery patient had purulent drainage from the proximal portion of the amputation so will take a few days before patient is ready for any further surgery In the best case scenario will undergo washout of the stump and closure on Thursday but depending on what it looks like I may delay the final closure for another few days after that In the meantime patient can be safely extubated and transferred to floor when stable 06/05/2018 Patient status post guillotine amputation of the right foot Considering the amount of infection gas gangrene and purulent drainage wound VAC will remain on for next few days Will likely washout the change wound VAC on Thursday and then go ahead and closed the incision probably around Thursday Objective Vital Signs / I&O: Vital Signs 06/04/18 16:00 06/04/18 18:00 06/04/18 20:00 Temperature 97.2 F L 97.7 F Pulse Rate 100 H 98 H 99 H Respiratory Rate 11 L 17 Blood Pressure 120/71 112/64 Pulse Oximetry 98 96 06/04/18 21:01 06/04/18 22:00 06/05/18 00:00 Temperature 97.6 F Pulse Rate 91 H 94 H Respiratory Rate 12 Blood Pressure 133/63 Pulse Oximetry 99 94 L 06/05/18 02:00 06/05/18 04:00 06/05/18 06:00 Temperature 98.2 F Pulse Rate 90 88 90 Respiratory Rate 16 Blood Pressure 113/67 Pulse Oximetry 95 06/05/18 08:02 Temperature Pulse Rate Respiratory Rate Blood Pressure Pulse Oximetry 98 Intake & Output 06/04/18 06/05/18 06/05/18 18:59 06:59 18:59 Intake Total 300 / 300 390 / 390 150 / 150 Output Total 650 / 650 670 / 670 Balance -350 / -350 -280 / -280 150 / 150 Weight 93.1 kg Intake: IV 100 / 100 150 / 150 150 / 150 Zosyn 3.375 GM Premix 50 ML @ 100 / 100 100 / 100 50 / 50 100 mls/hr IV.SIG Q6H [facility] Rx#: [id number] KCl 40 mEq Premix Inj 40 meq In 50 / 50 100 / 100 100 ml @ 50 mls/hr IV.SIG Q2H PRN Rx#:[id number] Oral 200 / 200 240 / 240 Output: Estimated Blood Loss 100 / 100 Urine Amount (Catheter) 600 / 600 550 / 550 Indwelling Urethral Catheter 600 / 600 550 / 550 Wound Vac Amount 50 / 50 20 / 20 Right Leg 50 / 50 20 / 20 Laboratory Results - last 24 hr 06/04/18 06/05/18 06/05/18 19:56 04:10 04:10 WBC 18.5 H RBC 3.36 L Hgb 9.3 L Hct 28.3 L MCV 84.3 MCH 27.7 MCHC 32.9 RDW 18.3 H Plt Count 252 MPV 6.7 L Sodium 143 Potassium 3.9 D Chloride 110 H Carbon Dioxide 17.4 L Anion Gap 16 H BUN 59 H Creatinine 1.74 H Estimated GFR 41 L POC Glucose 137 H Random Glucose 115 H Calcium 6.7 L* Prot Corrected Calcium 7.5 L Total Bilirubin 0.4 AST 14 L ALT 8 L Alkaline Phosphatase 145 H Total Protein 5.5 L Albumin 0.6 L Random Vancomycin 23.2 06/05/18 09:22 WBC RBC Hgb Hct MCV MCH MCHC RDW Plt Count MPV Sodium Potassium Chloride Carbon Dioxide Anion Gap BUN Creatinine Estimated GFR POC Glucose 127 H Random Glucose Calcium Prot Corrected Calcium Total Bilirubin AST ALT Alkaline Phosphatase Total Protein Albumin Random Vancomycin Microbiology 06/02/18 16:25 Aerobic Blood Culture - Final Blood - Peripheral Escherichia coli Anaerobic Blood Culture - Final gram negative rods 06/02/18 16:20 Aerobic Blood Culture - Final Blood - Peripheral Escherichia coli Anaerobic Blood Culture - Final Escherichia coli 06/02/18 17:15 Gram Stain - Final Wound - Foot Wound Culture - Preliminary Escherichia coli gram negative rods S. aureus MRSA 06/02/18 18:48 Acid Fast Bacilli Smear - Final Wound - Foot No acid fast bacilli seen 06/02/18 18:48 Gram Stain - Final Wound - Foot Wound Culture - Preliminary Escherichia coli Impressions Chest X-Ray 06/04/18 06:00 CONCLUSION: 1. Worsening bibasilar consolidation and effusions as described. 2. Patient now intubated. Nasogastric tube and left subclavian central venous line also placed. All appear appropriately positioned. No pneumothorax. Chest X-Ray 06/05/18 06:00 CONCLUSION: Interim extubation and nasogastric tube removal. No significant change right greater the left pleural effusions and basilar consolidation.
[2018-06-05] MEDS: Sod Chloride 0.9% Inj 1,000 ML IV.CONT SCH (17:27)
--- NOTE | 2018-06-05 17:43 | P.PNID ---
Subjective Remarks: extubated afebrile + liquid diarrhea Antibiotics: vanco zosyn Allergies/Adverse Reactions: Allergies No Known Allergies Allergy (Unverified 06/02/18 15:19) Objective Vital Signs 06/04/18 18:00 06/04/18 20:00 06/04/18 21:01 Temperature 97.7 F Pulse Rate 98 H 99 H Respiratory Rate 17 Blood Pressure 112/64 Pulse Oximetry 96 99 06/04/18 22:00 06/05/18 00:00 06/05/18 02:00 Temperature 97.6 F Pulse Rate 91 H 94 H 90 Respiratory Rate 12 Blood Pressure 133/63 Pulse Oximetry 94 L 06/05/18 04:00 06/05/18 06:00 06/05/18 08:00 Temperature 98.2 F 97.8 F Pulse Rate 88 90 90 Respiratory Rate 16 16 Blood Pressure 113/67 125/76 Pulse Oximetry 95 97 06/05/18 08:02 06/05/18 10:00 06/05/18 12:00 Temperature 97.3 F L Pulse Rate 100 H 92 H Respiratory Rate 10 L Blood Pressure 125/78 Pulse Oximetry 98 96 06/05/18 14:00 Temperature Pulse Rate 98 H Respiratory Rate Blood Pressure Pulse Oximetry Intake & Output 06/04/18 06/05/18 06/05/18 18:59 06:59 18:59 Intake Total 300 / 300 390 / 390 700 / 700 Output Total 650 / 650 670 / 670 Balance -350 / -350 -280 / -280 700 / 700 Weight 93.1 kg Intake: IV 100 / 100 150 / 150 700 / 700 NS Inj 1,000 ML @ 42 mls/hr IV. 500 / 500 CONT .[id number] [facility] Rx#:[id number] Zosyn 3.375 GM Premix 50 ML @ 100 / 100 100 / 100 100 / 100 100 mls/hr IV.SIG Q6H [facility] Rx#: [id number] KCl 40 mEq Premix Inj 40 meq In 50 / 50 100 / 100 100 ml @ 50 mls/hr IV.SIG Q2H PRN Rx#:[id number] Oral 200 / 200 240 / 240 Output: Estimated Blood Loss 100 / 100 Urine Amount (Catheter) 600 / 600 550 / 550 Indwelling Urethral Catheter 600 / 600 550 / 550 Wound Vac Amount 50 / 50 20 / 20 Right Leg 50 / 50 20 / 20 Other: Date of Last Bowel Movement 06/05/18 06/02/18 17:15 Wound - Foot Gram Stain - Final 06/02/18 17:15 Wound - Foot Wound Culture - Final Escherichia coli Alcaligenes species S. aureus MRSA 06/02/18 18:48 Wound - Foot Gram Stain - Final 06/02/18 18:48 Wound - Foot Wound Culture - Preliminary Escherichia coli S. aureus MRSA 06/02/18 16:25 Blood - Peripheral Aerobic Blood Culture - Final Escherichia coli 06/02/18 16:25 Blood - Peripheral Anaerobic Blood Culture - Final gram negative rods 06/02/18 16:20 Blood - Peripheral Aerobic Blood Culture - Final Escherichia coli 06/02/18 16:20 Blood - Peripheral Anaerobic Blood Culture - Final Escherichia coli 06/02/18 18:48 Wound - Foot Acid Fast Bacilli Smear - Final No acid fast bacilli seen 06/02/18 18:48 Wound - Foot Mycobacterial Culture - Pending 06/02/18 18:48 Wound - Foot Fungal Smear - Final No fungal elements seen 06/02/18 18:48 Wound - Foot Fungal Culture - Pending Lab - Hematology Results 06/04/18 06/05/18 05:15 04:10 WBC 20.5 H 18.5 H RBC 2.98 L 3.36 L Hgb 8.3 L 9.3 L Hct 25.0 L 28.3 L MCV 83.9 84.3 MCH 27.7 27.7 MCHC 33.0 32.9 RDW 18.1 H 18.3 H Plt Count 300 252 MPV 6.9 L 6.7 L Lab - Chemistry Results 06/03/18 06/04/18 06/04/18 21:33 05:15 11:58 Sodium 139 Potassium 3.1 L Chloride 108 H Carbon Dioxide 19.7 L Anion Gap 11 BUN 65 H Creatinine 1.72 H Estimated GFR 42 L POC Glucose 113 H 141 H Random Glucose 116 H Calcium 7.1 L* Prot Corrected Calcium 7.9 L Magnesium 2.0 Total Bilirubin 0.5 AST 16 ALT 11 L Alkaline Phosphatase 139 H Total Protein 5.5 L Albumin 0.6 L 06/04/18 06/05/18 06/05/18 19:56 04:10 09:22 Sodium 143 Potassium 3.9 D Chloride 110 H Carbon Dioxide 17.4 L Anion Gap 16 H BUN 59 H Creatinine 1.74 H Estimated GFR 41 L POC Glucose 137 H 127 H Random Glucose 115 H Calcium 6.7 L* Prot Corrected Calcium 7.5 L Magnesium Total Bilirubin 0.4 AST 14 L ALT 8 L Alkaline Phosphatase 145 H Total Protein 5.5 L Albumin 0.6 L Imaging: ITS Impressions Venous Doppler Study 06/02/18 15:46 CONCLUSION: 1. No sonographic evidence of lower extremity DVT. 2. Bilateral lower extremity subcutaneous edema. 3. Multiple lymph nodes seen in both groins, some of which are abnormally enlarged. Recommend clinical correlation. Foot X-Ray 06/02/18 15:52 CONCLUSION: Extensive subcutaneous air. No bone fracture or dislocation Chest X-Ray 06/05/18 06:00 CONCLUSION: Interim extubation and nasogastric tube removal. No significant change right greater the left pleural effusions and basilar consolidation. Physical Exam: GENERAL: NA sedated on vent SKIN: Warm and dry. HEAD: Atraumatic. Normocephalic. EYES: Pupils equal and round. No scleral icterus. No injection or drainage. ENT: No nasal bleeding or discharge. Mucous membranes pink and moist. NECK: Trachea midline. No JVD. CARDIOVASCULAR: Regular rate and rhythm. RESPIRATORY: No accessory muscle use. Clear to auscultation. Breath sounds equal bilaterally. GASTROINTESTINAL: Abdomen soft, non-tender, mildly distended. Hepatic and splenic margins not palpable. MUSCULOSKELETAL: Extremities without clubbing, cyanosis, or edema. L foot with dressing in place, heel with pressure injury, no purulence + mildl edema R foot with VAC in place NEUROLOGICAL: awake, alert, conversant follwoing commands PSYCHIATRIC: calm, cooperative Assessment and Plan - Plan life treatening severe R foot DFI Gas gangrene R foot, polimicrobial mixed aerobic/anaerobic infx, including MRSA Acutre VDRF- resolved ARF - resolving Sepsis, refractory hypotension - resovlved E.coli sepsis from infected foot not critical any more,. stable abx associated diarrhea ro c.diff cont zosyn cont vancomycin for MRSA co-infx eloisa Dexter: more deridenet on Mon, closure possbily Wed a lot of purulence was still present in proximal amputation site eloisa MORE
[2018-06-05] MEDS ORDERED: Sod Chloride 0.9% Inj 1,000 ML IV.SIG ONE (18:00)
[2018-06-05] MEDS: Morphine Inj 4 MG/ML Vial IV.PUSH PRN (20:40)
[2018-06-06] MEDS: Piperacil/Tazo 3.375 GM Premix 50 ML IV.SIG SCH ×4 (03:05→21:33)
[2018-06-06] MEDS: Heparin - SQ 10,000 UNITS/ML Vial SQ SCH ×3 (05:44→21:32)
[2018-06-06 06:14] LABS: Baso # (Auto) 0.1 th/mm3 (0.0-0.2); Baso % (Auto) 0.5 % (0.0-2.0); Eos # (Auto) 0.2 th/mm3 (0.0-0.4); Eos % (Auto) 1.6 % (0.0-4.0); Hemoglobin 8.3 gm/dL (13.0-17.0); Lymph # (Auto) 2.1 th/mm3 (1.0-4.8); Lymph % (Auto) 13.8 % (9.0-44.0); Mean Corpuscular HGB Conc 33.1 % (32.0-36.0); Mean Corpuscular Hemoglobin 27.8 pg (27.0-34.0); Mean Corpuscular Volume 84.1 fL (80.0-100.0); Mean Platelet Volume 6.5 fL (7.0-11.0); Mono # (Auto) 0.7 th/mm3 (0.0-0.9); Mono % (Auto) 4.6 % (0.0-8.0); Neut # (Auto) 12.3 th/mm3 (1.8-7.7); Neut % (Auto) 79.5 % (16.0-70.0); Platelet Count 353 th/mm3 (150-450); Red Blood Count 2.97 mil/mm3 (4.50-5.90); White Blood Count 15.4 th/mm3 (4.0-11.0)
[2018-06-06 06:48] LABS: Calcium 6.8 mg/dL (8.5-10.1); Carbon Dioxide 20.1 meq/L (21.0-32.0); Potassium 3.5 meq/L (3.5-5.1); Vancomycin,Trough 15.3 mcg/mL (5.0-10.0)
[2018-06-06 07:41] LABS: Total Protein 5.7 g/dL (6.4-8.2)
--- NOTE | 2018-06-06 08:01 | P.PNCC ---
Subjective Subjective Remarks/Hospital Course: 53-year-old male presented to emergency department today with complaints of shortness of breath, fatigue, and extensive draining edema of the lower extremities bilaterally. Per chart review his symptoms started 5 days ago and the swelling of his lower legs and feet have progressively gotten worse over the past 5 days. The patient also has had pain in the back of both lower extremities from the knees to the toes. He denied chest pain. He has a history of type-II diabetes mellitus and congestive heart failure. He has not taken any of his regular medications for the past 3 weeks due to financial limitations. During the examination in the emergency department he was found to have gangrene of the right foot and was emergently taken to operating room for an incision and drainage with debridement of foot and ankle. Postoperatively he remains intubated and was admitted to ICU for critical care management. SUBJ: s/p Incision drainage debridement foot ankle and distal leg, for gas gangrene. Remains in septic shock on Levophed. Remains intubated sedated. Currently on vancomycin and Zosyn I have added clindamycin. Cultures and wound cultures pending . Vascular surgery consult also pending. Received 2 units PRBC for hemoglobin of 5.3 06/04/18: Patient had been weaned off all pressors. Wakes up easily follows commands. 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 WBC count remains elevated but renal function improving. Hemoglobin stable. Multiple blood cultures growing E. coli. Wound culture with E. coli, MRSA, gram-negative rods. Continue Zosyn and vancomycin 06/05: Remains off vasopressors. Alert and conversant. Encephalopathy clearing. Blood and wound organisms identified, antibiotic coverage appropriate. 06/06: Normotensive. Afebrile. Urine output acceptable. Septic picture largely over. Base deficit largely corrected. Blood sugar trending higher will convert to full diabetic diet. Objective Vital Signs / I&O: Vital Signs 06/05/18 08:00 06/05/18 08:02 06/05/18 10:00 Temperature 97.8 F Pulse Rate 90 100 H Respiratory Rate 16 Blood Pressure 125/76 Pulse Oximetry 97 98 06/05/18 12:00 06/05/18 14:00 06/05/18 16:00 Temperature 97.3 F L 97.9 F Pulse Rate 92 H 98 H 98 H Respiratory Rate 10 L 17 Blood Pressure 125/78 138/87 Pulse Oximetry 96 97 06/05/18 18:00 06/05/18 20:00 06/05/18 22:00 Temperature 98.2 F Pulse Rate 98 H 103 H 87 Respiratory Rate 18 Blood Pressure 147/91 H Pulse Oximetry 95 06/06/18 00:00 06/06/18 02:00 06/06/18 04:00 Temperature 98.1 F 98.4 F Pulse Rate 90 86 87 Respiratory Rate 16 16 Blood Pressure 118/72 126/87 Pulse Oximetry 96 94 L 06/06/18 06:00 06/06/18 07:35 Temperature Pulse Rate 86 Respiratory Rate Blood Pressure Pulse Oximetry 94 L Intake & Output 06/05/18 06/06/18 06/06/18 18:59 06:59 18:59 Intake Total 1940 / 1940 220 / 220 Output Total 405 / 405 300 / 300 Balance 1535 / 1535 -80 / -80 Weight 98.7 kg Intake: IV 1700 / 1700 100 / 100 NS Inj 1,000 ML @ 42 mls/hr IV. 500 / 500 CONT .[id number] [facility] Rx#:[id number] Zosyn 3.375 GM Premix 50 ML @ 100 / 100 100 / 100 100 mls/hr IV.SIG Q6H [facility] Rx#: [id number] KCl 40 mEq Premix Inj 40 meq In 100 / 100 100 ml @ 50 mls/hr IV.SIG Q2H PRN Rx#:[id number] NS Inj 1,000 ML @ Wide Open IV. 1000 / 1000 SIG BOLUS ONE Rx#:[id number] Oral 240 / 240 120 / 120 Output: Urine 375 / 375 300 / 300 Urine Amount (Catheter) 30 / 30 Indwelling Urethral Catheter 30 / 30 Wound Vac Amount 0 / 0 0 / 0 Right Leg 0 / 0 0 / 0 Other: Mode Setting Right Leg Continuous Continuous # Voids 1 1 # Incontinent Voids 2 Date of Last Bowel Movement 06/05/18 06/05/18 # Bowel Movements 2 Result Diagrams: 06/06/18 05:50 06/06/18 05:50 Objective Remarks: - Constitutional Intubated, sedated - Routine HEENT Exam Head: Present: normocephalic, atraumatic Eye: Present: PERRL, EOM intact ENT: Airway widely patent, no obstructive noises. - Routine Neck Exam Present: supple. - Routine Respiratory Exam Present: Comfortable respiratory pattern, clear. No rhonchi, stridor, wheezes, crackles - Routine Cardiovascular Exam Present: RRR, S1, S2. Hemodynamically stable. No JVD. - Routine Abdominal Exam Present: soft, normoactive bowel sounds, no guarding. Absent: tenderness, distended - Routine Extremities Exam Status post right BKA, wound VAC in place. L heel ulcer - Routine Neurological Exam Awake alert following commands. Conversant. No focal deficits Assessment and Plan - Assessment and Plan Plan: A/P Neuro: -Pain adequately controlled -As needed morphine for pain control Resp: Post Respiratory failure -Extubated, breathing comfortably. -No upper airway problems. CVS/ID Septic shock Gangrene of the right foot -Broad-spectrum antibiotic with vancomycin and Zosyn, and ID DC'd clindamycin -Multiple blood cultures with E. coli, wound culture with E. coli, gram- negative ankur, MRSA -Status post I&D and debridement, status post BKA yesterday by Dr. Quiles -Continue IV fluid and blood product resuscitation -Discontinue Levophed HEME Blood loss anemia -s/p 3 units of PRBC now -Monitor H&H and transfuse to keep hemoglobin above 7 : Acute kidney injury -Strict I's and O's. IV fluid hydration -Monitor electrolytes and creatinine level -Creatinine has improved, urine output adequate. Stabilized ID: Gangrenous right foot. Bacteremia -Vancomycin and Zosyn -E coli bacteremia -MRSA, E coli in foot, obviously other organisms as well GI: -NPO, IV famotidine -Swallow eval, start diet if tolerated Endo: Diabetes mellitus -Insulin sliding scale DVT GI prophylaxis -Teds SCDs -Heparin subcu-if okay with surgeon -Luke Overall impression: This gentleman was critically ill and in severe sepsis from E. coli bacteremia related to gangrene of his right foot. He is progressed well following source control right lower extremity amputation. Now weaned off vasopressors and gradually improving.
[2018-06-06] MEDS: Famotidine PF Inj 20 MG/2 ML Vial IV.PUSH SCH ×2 (08:52→21:33)
[2018-06-06] MEDS: Senna/Docusate Sodium 8.6/50 MG Tablet PO SCH ×2 (08:52→21:34)
[2018-06-06] MEDS: Insulin NovoLOG Aspart Correctional Sugar Inj SQ SCH ×4 (08:53→23:15)
[2018-06-06] MEDS: Sod Chloride 0.9% Inj 1,000 ML IV.CONT SCH ×2 (10:25→17:02)
--- NOTE | 2018-06-06 10:52 | P.PNID ---
Subjective Remarks: ID Coverage 53-year-old diabetic male presented to emergency department yday with complaints of shortness of breath, fatigue, and extensive draining R foot wound , started 5 days ago a He was diagnosed with gas gangrene of R foot and underwent immediate surgery Had Guillotine RBA amputation done, has wound vac in place 06/03 Notes reviewed Off pressors Extubated 06/04 Cultures reviewed E coli in BC Wound C/S E coli MRSA Alcaligenes OR plans noted for tomorrow Temps ok WBC improving Creatinine improving Has diarrhea - C Diff (+) Antibiotics: vanco IV zosyn Vanco po Past Medical History: Congestive heart failure Type 2 diabetes mellitus Cholecystectomy Allergies/Adverse Reactions: Allergies No Known Allergies Allergy (Unverified 06/02/18 15:19) Objective Vital Signs 06/05/18 12:00 06/05/18 14:00 06/05/18 16:00 Temperature 97.3 F L 97.9 F Pulse Rate 92 H 98 H 98 H Respiratory Rate 10 L 17 Blood Pressure 125/78 138/87 Pulse Oximetry 96 97 06/05/18 18:00 06/05/18 20:00 06/05/18 22:00 Temperature 98.2 F Pulse Rate 98 H 103 H 87 Respiratory Rate 18 Blood Pressure 147/91 H Pulse Oximetry 95 06/06/18 00:00 06/06/18 02:00 06/06/18 04:00 Temperature 98.1 F 98.4 F Pulse Rate 90 86 87 Respiratory Rate 16 16 Blood Pressure 118/72 126/87 Pulse Oximetry 96 94 L 06/06/18 06:00 06/06/18 07:35 Temperature Pulse Rate 86 Respiratory Rate Blood Pressure Pulse Oximetry 94 L Intake & Output 06/05/18 06/06/18 06/06/18 18:59 06:59 18:59 Intake Total 1940 / 1940 220 / 220 1050 / 1050 Output Total 405 / 405 300 / 300 Balance 1535 / 1535 -80 / -80 1050 / 1050 Weight 98.7 kg Intake: IV 1700 / 1700 100 / 100 1050 / 1050 NS Inj 1,000 ML @ 42 mls/hr IV. 500 / 500 1000 / 1000 CONT .[id number] [facility] Rx#:[id number] Zosyn 3.375 GM Premix 50 ML @ 100 / 100 100 / 100 50 / 50 100 mls/hr IV.SIG Q6H [facility] Rx#: [id number] KCl 40 mEq Premix Inj 40 meq In 100 / 100 100 ml @ 50 mls/hr IV.SIG Q2H PRN Rx#:[id number] NS Inj 1,000 ML @ Wide Open IV. 1000 / 1000 SIG BOLUS ONE Rx#:[id number] Oral 240 / 240 120 / 120 Output: Urine 375 / 375 300 / 300 Urine Amount (Catheter) 30 30 Indwelling Urethral Catheter 30 Wound Vac Amount 0 / 0 0 / 0 Right Leg 0 / 0 0 / 0 Other: Mode Setting Right Leg Continuous Continuous # Voids 1 1 # Incontinent Voids 2 Date of Last Bowel Movement 06/05/18 06/05/18 # Bowel Movements 2 06/05/18 15:13 Stool Clostridium difficile GDH Antigen - Pending 06/05/18 15:13 Stool Clostridium difficile Toxin Assay - Pending 06/02/18 17:15 Wound - Foot Gram Stain - Final 06/02/18 17:15 Wound - Foot Wound Culture - Final Escherichia coli Alcaligenes species S. aureus MRSA 06/02/18 18:48 Wound - Foot Gram Stain - Final 06/02/18 18:48 Wound - Foot Wound Culture - Preliminary Escherichia coli S. aureus MRSA 06/02/18 16:25 Blood - Peripheral Aerobic Blood Culture - Final Escherichia coli 06/02/18 16:25 Blood - Peripheral Anaerobic Blood Culture - Final gram negative rods 06/02/18 16:20 Blood - Peripheral Aerobic Blood Culture - Final Escherichia coli 06/02/18 16:20 Blood - Peripheral Anaerobic Blood Culture - Final Escherichia coli 06/02/18 18:48 Wound - Foot Acid Fast Bacilli Smear - Final No acid fast bacilli seen 06/02/18 18:48 Wound - Foot Mycobacterial Culture - Pending 06/02/18 18:48 Wound - Foot Fungal Smear - Final No fungal elements seen 06/02/18 18:48 Wound - Foot Fungal Culture - Pending Lab - Hematology Results 06/05/18 06/06/18 04:10 05:50 WBC 18.5 H 15.4 H RBC 3.36 L 2.97 L Hgb 9.3 L 8.3 L Hct 28.3 L 25.0 L MCV 84.3 84.1 MCH 27.7 27.8 MCHC 32.9 33.1 RDW 18.3 H 18.0 H Plt Count 252 353 D MPV 6.7 L 6.5 L Neut % (Auto) 79.5 H Lymph % (Auto) 13.8 [place] % (Auto) 4.6 Eos % (Auto) 1.6 Baso % (Auto) 0.5 Neut # (Auto) 12.3 H Lymph # (Auto) 2.1 [place] # (Auto) 0.7 Eos # (Auto) 0.2 Baso # (Auto) 0.1 WBC Differential . Differential Comment Auto diff final Lab - Chemistry Results 06/04/18 06/04/18 06/05/18 11:58 19:56 04:10 Sodium 143 Potassium 3.9 D Chloride 110 H Carbon Dioxide 17.4 L Anion Gap 16 H BUN 59 H Creatinine 1.74 H Estimated GFR 41 L POC Glucose 141 H 137 H Random Glucose 115 H Calcium 6.7 L* Prot Corrected Calcium 7.5 L Total Bilirubin 0.4 AST 14 L ALT 8 L Alkaline Phosphatase 145 H Total Protein 5.5 L Albumin 0.6 L 06/05/18 06/05/18 06/06/18 09:22 20:03 05:50 Sodium 142 Potassium 3.5 Chloride 112 H Carbon Dioxide 20.1 L Anion Gap 10 BUN 53 H Creatinine 1.67 H Estimated GFR 43 L POC Glucose 127 H 227 H Random Glucose 205 H Calcium 6.8 L* Prot Corrected Calcium 7.5 L Total Bilirubin AST ALT Alkaline Phosphatase Total Protein 5.7 L Albumin 06/06/18 08:41 Sodium Potassium Chloride Carbon Dioxide Anion Gap BUN Creatinine Estimated GFR POC Glucose 209 H Random Glucose Calcium Prot Corrected Calcium Total Bilirubin AST ALT Alkaline Phosphatase Total Protein Albumin Imaging: ITS Impressions Venous Doppler Study 06/02/18 15:46 CONCLUSION: 1. No sonographic evidence of lower extremity DVT. 2. Bilateral lower extremity subcutaneous edema. 3. Multiple lymph nodes seen in both groins, some of which are abnormally enlarged. Recommend clinical correlation. Foot X-Ray 06/02/18 15:52 CONCLUSION: Extensive subcutaneous air. No bone fracture or dislocation Chest X-Ray 06/05/18 06:00 CONCLUSION: Interim extubation and nasogastric tube removal. No significant change right greater the left pleural effusions and basilar consolidation. Physical Exam: GENERAL: Awakens easily, NAD SKIN: Warm and dry. No rash HEAD: Atraumatic. Normocephalic. EYES: Pupils equal and round. No scleral icterus. No injection or drainage. ENT: No nasal bleeding or discharge. Mucous membranes pink and moist. NECK: Trachea midline. No JVD. CARDIOVASCULAR: Regular rate and rhythm. RESPIRATORY: No accessory muscle use. Clear to auscultation. Breath sounds equal bilaterally. GASTROINTESTINAL: Abdomen soft, non-tender, mildly distended. Hepatic and splenic margins not palpable. MUSCULOSKELETAL: Extremities without clubbing, cyanosis, or edema. Has dry dressing at amputation site with wound vac in place, has blood output. NEUROLOGICAL: Non-focal PSYCHIATRIC: calm, cooperative Assessment and Plan - Plan Impression Sepsis, E coli - better Gas gangrene RLE, S/P guillotine amputation RBKA, C/S polymicrobial life treatening severe R foot DFI Gas gangrene R foot, polimicrobial mixed aerobic/anaerobic infx, including MRSA Acutre VDRF- resolved ARF - resolving C difficile colitis Recommendation Continue zosyn Continue vancomycin for MRSA co-infx Continue po Vancomycin for C diff OR plans noted for tomorrow Monitor progress
[2018-06-06] MEDS ORDERED: Vancomycin Inj 1,750 MG in Sodium Chlor 0.9% Inj 500 ML IV.SIG ONE (11:00)
--- NOTE | 2018-06-06 12:35 | P.PNVS ---
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 Wound VAC in place It should be noted that the time of surgery patient had purulent drainage from the proximal portion of the amputation so will take a few days before patient is ready for any further surgery In the best case scenario will undergo washout of the stump and closure on Thursday but depending on what it looks like I may delay the final closure for another few days after that In the meantime patient can be safely extubated and transferred to floor when stable 06/05/2018 Patient status post guillotine amputation of the right foot Considering the amount of infection gas gangrene and purulent drainage wound VAC will remain on for next few days Will likely washout the change wound VAC on Thursday and then go ahead and closed the incision probably around Thursday06/06/2018 Considering the amount of purulent drainage and degree of infection and gas gangrene I believe it is probably leonard to postpone final closure until at least Thursday Patient should have a washout of the stump at the bedside the new wound VAC placement tomorrow Objective Vital Signs / I&O: Vital Signs 06/05/18 14:00 06/05/18 16:00 06/05/18 18:00 Temperature 97.9 F Pulse Rate 98 H 98 H 98 H Respiratory Rate 17 Blood Pressure 138/87 Pulse Oximetry 97 06/05/18 20:00 06/05/18 22:00 06/06/18 00:00 Temperature 98.2 F 98.1 F Pulse Rate 103 H 87 90 Respiratory Rate 18 16 Blood Pressure 147/91 H 118/72 Pulse Oximetry 95 96 06/06/18 02:00 06/06/18 04:00 06/06/18 06:00 Temperature 98.4 F Pulse Rate 86 87 86 Respiratory Rate 16 Blood Pressure 126/87 Pulse Oximetry 94 L 06/06/18 07:35 06/06/18 08:00 06/06/18 10:00 Temperature 97.7 F Pulse Rate 94 H 90 Respiratory Rate 10 L Blood Pressure 132/84 Pulse Oximetry 94 L 99 06/06/18 12:00 Temperature 98 F Pulse Rate 89 Respiratory Rate 10 L Blood Pressure 127/86 Pulse Oximetry 99 Intake & Output 06/05/18 06/06/18 06/06/18 18:59 06:59 18:59 Intake Total 1940 / 1940 220 / 220 1050 / 1050 Output Total 405 / 405 300 / 300 Balance 1535 / 1535 -80 / -80 1050 / 1050 Weight 98.7 kg Intake: IV 1700 / 1700 100 / 100 1050 / 1050 NS Inj 1,000 ML @ 42 mls/hr IV. 500 / 500 1000 / 1000 CONT .[id number] [facility] Rx#:[id number] Zosyn 3.375 GM Premix 50 ML @ 100 / 100 100 / 100 50 / 50 100 mls/hr IV.SIG Q6H [facility] Rx#: [id number] KCl 40 mEq Premix Inj 40 meq In 100 / 100 100 ml @ 50 mls/hr IV.SIG Q2H PRN Rx#:[id number] NS Inj 1,000 ML @ Wide Open IV. 1000 / 1000 SIG BOLUS ONE Rx#:[id number] Oral 240 / 240 120 / 120 Output: Urine 375 / 375 300 / 300 Urine Amount (Catheter) 30 / 30 Indwelling Urethral Catheter 30 / 30 Wound Vac Amount 0 / 0 0 / 0 Right Leg 0 / 0 0 / 0 Other: Mode Setting Right Leg Continuous Continuous Continuous # Voids 1 1 # Incontinent Voids 2 Date of Last Bowel Movement 06/05/18 06/05/18 06/05/18 # Bowel Movements 2 Laboratory Results - last 24 hr 06/05/18 06/05/18 06/06/18 15:13 20:03 05:50 WBC RBC Hgb Hct MCV MCH MCHC RDW Plt Count MPV Neut % (Auto) Lymph % (Auto) [place] % (Auto) Eos % (Auto) Baso % (Auto) Neut # (Auto) Lymph # (Auto) [place] # (Auto) Eos # (Auto) Baso # (Auto) WBC Differential Differential Comment Sodium 142 Potassium 3.5 Chloride 112 H Carbon Dioxide 20.1 L Anion Gap 10 BUN 53 H Creatinine 1.67 H Estimated GFR 43 L POC Glucose 227 H Random Glucose 205 H Calcium 6.8 L* Prot Corrected Calcium 7.5 L Total Protein 5.7 L Stl C.difficile Tox PCR Positive H St C. diff Tox Epid 027 Negative Vancomycin Trough 15.3 H 06/06/18 06/06/18 05:50 08:41 WBC 15.4 H RBC 2.97 L Hgb 8.3 L Hct 25.0 L MCV 84.1 MCH 27.8 MCHC 33.1 RDW 18.0 H Plt Count 353 D MPV 6.5 L Neut % (Auto) 79.5 H Lymph % (Auto) 13.8 [place] % (Auto) 4.6 Eos % (Auto) 1.6 Baso % (Auto) 0.5 Neut # (Auto) 12.3 H Lymph # (Auto) 2.1 [place] # (Auto) 0.7 Eos # (Auto) 0.2 Baso # (Auto) 0.1 WBC Differential . Differential Comment Auto diff final Sodium Potassium Chloride Carbon Dioxide Anion Gap BUN Creatinine Estimated GFR POC Glucose 209 H Random Glucose Calcium Prot Corrected Calcium Total Protein Stl C.difficile Tox PCR St C. diff Tox Epid 027 Vancomycin Trough Microbiology 06/02/18 17:15 Gram Stain - Final Wound - Foot Wound Culture - Final Escherichia coli Alcaligenes species S. aureus MRSA 06/02/18 18:48 Gram Stain - Final Wound - Foot Wound Culture - Preliminary Escherichia coli S. aureus MRSA 06/02/18 16:25 Aerobic Blood Culture - Final Blood - Peripheral Escherichia coli Anaerobic Blood Culture - Final gram negative rods 06/02/18 16:20 Aerobic Blood Culture - Final Blood - Peripheral Escherichia coli Anaerobic Blood Culture - Final Escherichia coli Impressions Chest X-Ray 06/05/18 06:00 CONCLUSION: Interim extubation and nasogastric tube removal. No significant change right greater the left pleural effusions and basilar consolidation.
--- NOTE | 2018-06-06 13:30 | P.PNPOD ---
Subjective Interval history: s/p R BK 06/03 Left heel wound AAO x 3 at bedside this am. Physical Exam Vital signs: Vital Signs 06/05/18 14:00 06/05/18 16:00 06/05/18 18:00 Temperature 97.9 F Pulse Rate 98 H 98 H 98 H Respiratory Rate 17 Blood Pressure 138/87 Pulse Oximetry 97 06/05/18 20:00 06/05/18 22:00 06/06/18 00:00 Temperature 98.2 F 98.1 F Pulse Rate 103 H 87 90 Respiratory Rate 18 16 Blood Pressure 147/91 H 118/72 Pulse Oximetry 95 96 06/06/18 02:00 06/06/18 04:00 06/06/18 06:00 Temperature 98.4 F Pulse Rate 86 87 86 Respiratory Rate 16 Blood Pressure 126/87 Pulse Oximetry 94 L 06/06/18 07:35 06/06/18 08:00 06/06/18 10:00 Temperature 97.7 F Pulse Rate 94 H 90 Respiratory Rate 10 L Blood Pressure 132/84 Pulse Oximetry 94 L 99 06/06/18 12:00 Temperature 98 F Pulse Rate 89 Respiratory Rate 10 L Blood Pressure 127/86 Pulse Oximetry 99 Intake & Output 06/05/18 06/06/18 06/06/18 18:59 06:59 18:59 Intake Total 1940 / 1940 220 / 220 1050 / 1050 Output Total 405 / 405 300 / 300 Balance 1535 / 1535 -80 / -80 1050 / 1050 Weight 98.7 kg Intake: IV 1700 / 1700 100 / 100 1050 / 1050 NS Inj 1,000 ML @ 42 mls/hr IV. 500 / 500 1000 / 1000 CONT .[id number] [facility] Rx#:[id number] Zosyn 3.375 GM Premix 50 ML @ 100 / 100 100 / 100 50 / 50 100 mls/hr IV.SIG Q6H [facility] Rx#: [id number] KCl 40 mEq Premix Inj 40 meq In 100 / 100 100 ml @ 50 mls/hr IV.SIG Q2H [facility] Rx#:[id number] NS Inj 1,000 ML @ Wide Open IV. 1000 / 1000 SIG BOLUS ONE Rx#:[id number] Oral 240 / 240 120 / 120 Output: Urine 375 / 375 300 / 300 Urine Amount (Catheter) 30 / 30 Indwelling Urethral Catheter 30 / 30 Wound Vac Amount 0 / 0 0 / 0 Right Leg 0 / 0 0 / 0 Other: Mode Setting Right Leg Continuous Continuous Continuous # Voids 1 1 # Incontinent Voids 2 Date of Last Bowel Movement 06/05/18 06/05/18 06/05/18 # Bowel Movements 2 Narrative: LLE Left heel with bulla. No purulence and no erythema NVS intact Medications and Allergies Active Medications: Active Medications Acetaminophen (Tylenol) 650 mg PO Q4H PRN PRN Reason: Temp > 100.4 Al Hydroxide/Mg Hydroxide (Milk Of Magnesia Liq) 30 ml PO Q12H PRN PRN Reason: Mild Constipation Bisacodyl (Dulcolax Supp) 10 mg RECTAL DAILY PRN PRN Reason: SEVERE CONSITIPATION Dextrose (D50w Vial) 50 ml IV.PUSH UNSCH PRN PRN Reason: PER HYPOGLYCEMIA PROTOCOL Famotidine (Pepcid Pf Inj) 20 mg IV.PUSH Q12HR [facility] Last Admin: 06/06/18 08:52 Dose: 20 mg Glucagon (Glucagon Inj) 1 mg OTHER UNSCH PRN PRN Reason: for Hypoglycemia Protocol Heparin Sodium (Porcine) (Heparin Inj) 5,000 units SQ Q8HR [facility] Last Admin: 06/06/18 05:44 Dose: 5,000 units Sodium Chloride (Ns Inj) 1,000 mls @ 42 mls/hr IV.CONT .[id number] [facility] Last Admin: 06/06/18 10:25 Dose: 42 mls/hr Piperacillin/Tazobactam/Dextrose (Zosyn 3.375 Gm Premix) 50 mls @ 100 mls/hr IV.SIG Q6H [facility] Last Infusion: 06/06/18 09:22 Dose: Infused Magnesium Sulfate 4 gm/ Sodium (Chloride) 100 mls @ 50 mls/hr IV.SIG UNSCH PRN PRN Reason: For Magnesium 0.9 - 1.1 mg/dL Magnesium Sulfate 2 gm/ Sodium (Chloride) 100 mls @ 50 mls/hr IV.SIG UNSCH PRN PRN Reason: For Magnesium 1.2 - 1.6 mg/dL Potassium Chloride (Kcl 40 Meq Premix Inj) 40 meq in 100 mls @ 50 mls/hr IV.SIG Q2H PRN PRN Reason: For Potassium 2.8 - 3.2 mEq/L Last Infusion: 06/05/18 07:18 Dose: Infused Potassium Chloride (Kcl 20 Meq Premix Inj) 20 meq in 100 mls @ 50 mls/hr IV.SIG Q2H PRN PRN Reason: For Potassium 3.3 - 3.5 mEq/L Potassium Chloride (Kcl 40 Meq Premix Inj) 40 meq in 100 mls @ 25 mls/hr IV.SIG UNSCH PRN PRN Reason: For Potassium 3.3 - 3.5 mEq/L Potassium Chloride (Kcl 20 Meq Premix Inj) 20 meq in 100 mls @ 50 mls/hr IV.SIG Q2H PRN PRN Reason: For Potassium 2.8 - 3.2 mEq/L Potassium Phosphate 30 mmol/ (Sodium Chloride) 260 mls @ 42 mls/hr IV.SIG UNSCH PRN PRN Reason: SEE LABEL COMMENTS Sodium Phosphate 30 mmol/ (Sodium Chloride) 260 mls @ 42 mls/hr IV.SIG UNSCH PRN PRN Reason: For Phosphorus < 2.5 mg/dL Insulin Aspart (Novolog Insulin Correctional Sugar Inj) 0 unit SQ ACHS [facility]; Protocol Last Admin: 06/06/18 08:53 Dose: 3 unit Lactulose (Lactulose Liq) 30 ml PO DAILY PRN PRN Reason: SEVERE CONSITIPATION Magnesium Oxide (Mag-Ox) 800 mg PO UNSCH PRN PRN Reason: For Magnesium 1.2 - 1.6 mg/dL Morphine Sulfate (Morphine Inj) 3 mg IV.PUSH Q4H PRN PRN Reason: PAIN 6-10;IF UNABLE TO TAKE PO Last Admin: 06/05/18 20:40 Dose: 3 mg Ondansetron HCl (Zofran Inj) 4 mg IV.PUSH Q6H PRN PRN Reason: NAUSEA OR VOMITING Pharmacy Profile Note (Vancomycin Consult Pharmacy) 1 each OTHER UNSCH PRN PRN Reason: Pharmacy to dose Potassium Bicarb/Potassium Chloride (K-Lyte Cl Eff) 50 meq PO UNSCH PRN PRN Reason: For Potassium 3.3 - 3.5 mEq/L Potassium Phosphate (K-Phos Original) 2,000 mg PO Q4H PRN PRN Reason: Phosphorus Less Than 2.5 mg/dL Potassium Phosphate (K-Phos Original) 2,000 mg PO UNSCH PRN PRN Reason: SEE LABEL COMMENTS Senna/Docusate Sodium (Bee-Colace) 1 tab PO BID [facility] Last Admin: 06/06/18 08:52 Dose: Not Given Sennosides (Senokot) 17.2 mg PO Q12H PRN PRN Reason: Moderate Constipation Sodium Chloride (Ns Flush) 2 ml IV.FLUSH UNSCH PRN PRN Reason: FLUSH AFTER USING IV ACCESS Terbutaline Sulfate (Brethine Inj) 1 mg SQ UNSCH PRN PRN Reason: For Extravasation Vancomycin HCl (Vancomycin Po) 250 mg PO QID [facility] Last Admin: 06/06/18 08:52 Dose: 250 mg Allergies Allergy/AdvReac Type Severity Reaction Status Date / Time No Known Allergies Allergy Unverified 06/02/18 15:19 Home Medications Medication Instructions Recorded Confirmed Type aspirin 81 mg PO DAILY 06/02/18 06/02/18 History atorvastatin [Lipitor] 40 mg PO DAILY 06/02/18 06/02/18 History bumetanide 2 mg PO DAILY 06/02/18 06/02/18 History carvedilol [Coreg] 25 mg PO BID 06/02/18 06/02/18 History chlorthalidone 25 mg PO DAILY 06/02/18 06/02/18 History folic acid 1 mg PO DAILY 06/02/18 06/02/18 History lisinopril 5 mg PO DAILY 06/02/18 06/02/18 History Results - Labs CBC & Chem 7: 06/06/18 05:50 06/06/18 05:50 Laboratory Results - last 24 hr 06/05/18 06/05/18 06/06/18 15:13 20:03 05:50 WBC RBC Hgb Hct MCV MCH MCHC RDW Plt Count MPV Neut % (Auto) Lymph % (Auto) [place] % (Auto) Eos % (Auto) Baso % (Auto) Neut # (Auto) Lymph # (Auto) [place] # (Auto) Eos # (Auto) Baso # (Auto) WBC Differential Differential Comment Sodium 142 Potassium 3.5 Chloride 112 H Carbon Dioxide 20.1 L Anion Gap 10 BUN 53 H Creatinine 1.67 H Estimated GFR 43 L POC Glucose 227 H Random Glucose 205 H Calcium 6.8 L* Prot Corrected Calcium 7.5 L Total Protein 5.7 L Stl C.difficile Tox PCR Positive H St C. diff Tox Epid 027 Negative Vancomycin Trough 15.3 H 06/06/18 06/06/18 05:50 08:41 WBC 15.4 H RBC 2.97 L Hgb 8.3 L Hct 25.0 L MCV 84.1 MCH 27.8 MCHC 33.1 RDW 18.0 H Plt Count 353 D MPV 6.5 L Neut % (Auto) 79.5 H Lymph % (Auto) 13.8 [place] % (Auto) 4.6 Eos % (Auto) 1.6 Baso % (Auto) 0.5 Neut # (Auto) 12.3 H Lymph # (Auto) 2.1 [place] # (Auto) 0.7 Eos # (Auto) 0.2 Baso # (Auto) 0.1 WBC Differential . Differential Comment Auto diff final Sodium Potassium Chloride Carbon Dioxide Anion Gap BUN Creatinine Estimated GFR POC Glucose 209 H Random Glucose Calcium Prot Corrected Calcium Total Protein Stl C.difficile Tox PCR St C. diff Tox Epid 027 Vancomycin Trough Microbiology 06/02/18 17:15 Wound - Foot Gram Stain - Final 06/02/18 17:15 Wound - Foot Wound Culture - Final Escherichia coli Alcaligenes species S. aureus MRSA 06/02/18 18:48 Wound - Foot Gram Stain - Final 06/02/18 18:48 Wound - Foot Wound Culture - Preliminary Escherichia coli S. 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 Stephen Oconnell LLE ordered and then again on 06/06/18. (3) Sepsis Qualifiers: Sepsis type: sepsis due to unspecified organism Qualified Code(s): A41.9 - Sepsis, unspecified organism
[2018-06-07] MEDS: Piperacil/Tazo 3.375 GM Premix 50 ML IV.SIG SCH ×4 (03:45→20:30)
[2018-06-07 07:09] LABS: Baso # (Auto) 0.1 th/mm3 (0.0-0.2); Baso % (Auto) 0.7 % (0.0-2.0); Eos # (Auto) 0.3 th/mm3 (0.0-0.4); Eos % (Auto) 2.4 % (0.0-4.0); Hematocrit 26.4 % (39.0-51.0); Hemoglobin 8.7 gm/dL (13.0-17.0); Lymph # (Auto) 1.7 th/mm3 (1.0-4.8); Lymph % (Auto) 12.5 % (9.0-44.0); Mean Corpuscular HGB Conc 32.8 % (32.0-36.0); Mean Corpuscular Hemoglobin 27.6 pg (27.0-34.0); Mean Corpuscular Volume 84.1 fL (80.0-100.0); Mean Platelet Volume 6.4 fL (7.0-11.0); Mono # (Auto) 0.8 th/mm3 (0.0-0.9); Mono % (Auto) 6.1 % (0.0-8.0); Neut # (Auto) 10.4 th/mm3 (1.8-7.7); Neut % (Auto) 78.3 % (16.0-70.0); Platelet Count 376 th/mm3 (150-450); Red Blood Count 3.14 mil/mm3 (4.50-5.90); Red Cell Distribution Width 17.7 % (11.6-17.2); White Blood Count 13.3 th/mm3 (4.0-11.0)
[2018-06-07] MEDS: Heparin - SQ 10,000 UNITS/ML Vial SQ SCH ×3 (07:17→22:00)
[2018-06-07 07:56] LABS: Calcium 7.4 mg/dL (8.5-10.1); Carbon Dioxide 21.2 meq/L (21.0-32.0); Potassium 3.4 meq/L (3.5-5.1)
[2018-06-07] MEDS: Senna/Docusate Sodium 8.6/50 MG Tablet PO SCH ×2 (08:00→20:29)
[2018-06-07] MEDS: Famotidine PF Inj 20 MG/2 ML Vial IV.PUSH SCH ×2 (08:00→20:29)
[2018-06-07] MEDS: Sod Chloride 0.9% Inj 1,000 ML IV.CONT SCH (08:03)
[2018-06-07] MEDS: Insulin NovoLOG Aspart Correctional Sugar Inj SQ SCH ×4 (08:46→20:29)
--- NOTE | 2018-06-07 09:50 | P.PNIM ---
Subjective Interval history: Pt reports he is feeling ok. Pain is controlled. Physical Exam Vital signs: Vital Signs 06/06/18 10:00 06/06/18 12:00 06/06/18 14:00 Temperature 98 F Pulse Rate 90 89 92 H Respiratory Rate 10 L Blood Pressure 127/86 Pulse Oximetry 99 06/06/18 16:00 06/06/18 18:00 06/06/18 20:00 Temperature 97.7 F 98.4 F Pulse Rate 96 H 94 H 96 H Respiratory Rate 18 13 Blood Pressure 142/92 H 130/80 Pulse Oximetry 98 98 06/06/18 22:29 06/07/18 00:00 06/07/18 04:00 Temperature 98.8 F 98.8 F Pulse Rate 95 H 99 H Respiratory Rate 17 Blood Pressure 145/92 H 140/94 H Pulse Oximetry 98 97 93 L 06/07/18 08:08 Temperature Pulse Rate Respiratory Rate Blood Pressure Pulse Oximetry 94 L Intake & Output 06/06/18 06/07/18 06/07/18 18:59 06:59 18:59 Intake Total 1857.5 / 1857.5 1290 / 1290 1100 / 1100 Output Total 500 / 500 1000 / 1000 Balance 1357.5 / 1357.5 290 / 290 1100 / 1100 Weight 98.7 kg Intake: IV 1617.5 / 1617.5 50 / 50 1100 / 1100 NS Inj 1,000 ML @ 42 mls/hr IV. 1000 / 1000 1000 / 1000 CONT .[id number] [facility] Rx#:[id number] Zosyn 3.375 GM Premix 50 ML @ 100 / 100 50 / 50 100 / 100 100 mls/hr IV.SIG Q6H [facility] Rx#: [id number] Vancomycin Inj 1,750 MG In NS 517.5 / 517.5 Inj 500 ML @ 250 mls/hr IV.SIG ONCE ONE Rx#:[id number] Oral 240 / 240 640 / 640 Anesthesia Amount 600 / 600 Output: Urine 450 / 450 800 / 800 Estimated Blood Loss 100 / 100 Gastric Drainage 100 / 100 Orogastric Tube 100 / 100 Wound Vac Amount 50 / 50 0 / 0 Right Leg 50 / 50 0 / 0 Other: Mode Setting Right Leg Continuous Continuous Sacrum Continuous # Voids 3 # Incontinent Voids 3 Date of Last Bowel Movement 06/05/18 06/05/18 # Bowel Movements 2 Narrative: GENERAL: This is a well-nourished, well-developed patient, in no apparent distress. CARDIOVASCULAR: Normal rate and regular rhythm without murmurs, gallops, or rubs. RESPIRATORY: Good respiratory efforts. Breath sounds equal and clear to auscultation bilaterally. GASTROINTESTINAL: Abdomen soft, non-tender, non-distended. Normal active bowel sounds MUSCULOSKELETAL: Status post right BKA. Wound VAC in place. NEURO: Alert & Oriented x4 to person, place, time, situation. Moves all ext x4 PSYCH: Appropriate mood and affect. - Urinary Catheter Management Indwelling Urethral Catheter Cath placed during this visit: yes, but has since been removed by the nurse Reason for continuing: Decision to DC catheter Insertion date: 06/02/18 Insertion time: 19:38 Removal date: 06/05/18 Removal time: 18:00 Results - Labs CBC & Chem 7: 06/07/18 06:29 06/07/18 06:29 Laboratory Results - last 24 hr 06/06/18 06/06/18 06/07/18 16:55 22:37 06:29 WBC 13.3 H RBC 3.14 L Hgb 8.7 L Hct 26.4 L MCV 84.1 MCH 27.6 MCHC 32.8 RDW 17.7 H Plt Count 376 MPV 6.4 L Neut % (Auto) 78.3 H Lymph % (Auto) 12.5 [place] % (Auto) 6.1 Eos % (Auto) 2.4 Baso % (Auto) 0.7 Neut # (Auto) 10.4 H Lymph # (Auto) 1.7 [place] # (Auto) 0.8 Eos # (Auto) 0.3 Baso # (Auto) 0.1 WBC Differential . Differential Comment Auto diff final Sodium Potassium Chloride Carbon Dioxide Anion Gap BUN Creatinine Estimated GFR POC Glucose 196 H 188 H Random Glucose Calcium Prot Corrected Calcium Total Protein 06/07/18 06:29 WBC RBC Hgb Hct MCV MCH MCHC RDW Plt Count MPV Neut % (Auto) Lymph % (Auto) [place] % (Auto) Eos % (Auto) Baso % (Auto) Neut # (Auto) Lymph # (Auto) [place] # (Auto) Eos # (Auto) Baso # (Auto) WBC Differential Differential Comment Sodium 143 Potassium 3.4 L Chloride 114 H Carbon Dioxide 21.2 Anion Gap 8 BUN 50 H Creatinine 1.63 H Estimated GFR 45 L POC Glucose Random Glucose 211 H Calcium 7.4 L* Prot Corrected Calcium 8.0 L Total Protein 6.0 L Microbiology 06/02/18 18:48 Wound - Foot Gram Stain - Final 06/02/18 18:48 Wound - Foot Wound Culture - Final Escherichia coli S. aureus MRSA Mixed Anaerobes 06/02/18 18:48 Wound - Foot Fungal Smear - Final No fungal elements seen 06/02/18 18:48 Wound - Foot Acid Fast Bacilli Smear - Final No acid fast bacilli seen 06/05/18 15:13 Stool Clostridium difficile GDH Antigen - Final Positive - C. difficile Antigen detected. 06/05/18 15:13 Stool Clostridium difficile Toxin Assay - Final Negative - No C. difficile Toxin A or B detected. Assessment and Plan - Plan 53-year-old male admitted with acute septic shock, respiratory failure status post extubation and BKA. Patient has been receiving ICU care and stabilized for transfer to the hospitalist service. Post Respiratory failure -Extubated, breathing comfortably. -No upper airway problems. Septic shock Gangrene of the right foot -Broad-spectrum antibiotic with vancomycin and Zosyn, -Appreciate infectious disease following. Multiple blood cultures with E. coli , wound culture with E. coli, gram-negative ankur, MRSA -Status post I&D and debridement, status post BKA yesterday by Dr. Quiles -Shock resolved -Wound VAC in place. Bedside washout and wound VAC placement to be done again today per surgery. Blood loss anemia -s/p 3 units of PRBC now -Monitor H&H and transfuse to keep hemoglobin above 7 Acute kidney injury -Strict I's and O's. IV fluid hydration -Monitor electrolytes and creatinine level -Creatinine has improved, urine output adequate. Stabilized Diabetes mellitus -Insulin sliding scale DVT GI prophylaxis -Teds SCDs -Heparin subcu-if okay with surgeon -Luke Discharge Planning: Okay to transfer to medical floor. Continue IV antibiotics.
[2018-06-07] MEDS: Morphine Inj 4 MG/ML Vial IV.PUSH PRN (11:08)
--- NOTE | 2018-06-07 14:45 | P.PNWCN ---
Wound Care Nurse Consult Description: wound consult ordered by for wound management. Communicated with: Layne MORE, Recommendation: 1. Manually reposition patient every 2 hours for comfort and offloading. 2. Cleanse Intera gluteal cleft and surrounding area with remedy soft cloth barrier wipes. 3. Apply thin even layer of Calazime cream to affected area BID or after loose stool. 4. Avoid placing patient on cotton underpads to due trapping moisture/heat. please use UltraSorb moisture wicking underpads. 5. Please reach out to wound care team if treatment fails. Additional information: Patient was seen today by bond writer and Hanna MORE for wound management.Patient repositioned to left side.Patient noted to have moisture /friction semi denuded areas to intra gluteal cleft and bilateral buttocks. Per wound care guidelines Calazime cream to be applied in thin even layer BID.Wound vac to right BKA dry intact functioning properly /Dressing to left heel dry intact. Wound/Pressure Injury - Wound Right Leg Wound Assessment: Ongoing intra gluteal cleft Wound Type: Maceration Is This a Chronic Wound: No Requested from Provider a Wound Care Consult: No (Julieth MORE,[facility] seen 06/07) Wound Bed Appearance: Peeling Skin, [place] Dressing Status: Open to Air Topical: Calazime Wound Vac - Wound Vac Right Leg Pressure Setting (mmHg): 125 Mode Setting: Continuous Drainage Description: Sanguinous Foam type: Black, Other (double layer adaptic.) Sacrum Mode Setting: Continuous Incision - Incision Right Leg Incision/Surgery Date: 06/03/18
--- NOTE | 2018-06-07 15:27 | P.PNVS ---
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 Wound VAC in place It should be noted that the time of surgery patient had purulent drainage from the proximal portion of the amputation so will take a few days before patient is ready for any further surgery In the best case scenario will undergo washout of the stump and closure on Thursday but depending on what it looks like I may delay the final closure for another few days after that In the meantime patient can be safely extubated and transferred to floor when stable 06/05/2018 Patient status post guillotine amputation of the right foot Considering the amount of infection gas gangrene and purulent drainage wound VAC will remain on for next few days Will likely washout the change wound VAC on Thursday and then go ahead and closed the incision probably around Thursday06/06/2018 Considering the amount of purulent drainage and degree of infection and gas gangrene I believe it is probably leonard to postpone final closure until at least Thursday Patient should have a washout of the stump at the bedside the new wound VAC placement tomorrow 06/07/2018 Wound VAC changed today Amputation site appears to be much sleeping room cleaner Will likely closed the incision on Thursday Nothing to add at this time Objective Vital Signs / I&O: Vital Signs 06/06/18 16:00 06/06/18 18:00 06/06/18 20:00 Temperature 97.7 F 98.4 F Pulse Rate 96 H 94 H 96 H Respiratory Rate 18 13 Blood Pressure 142/92 H 130/80 Pulse Oximetry 98 98 06/06/18 22:29 06/07/18 00:00 06/07/18 04:00 Temperature 98.8 F 98.8 F Pulse Rate 95 H 99 H Respiratory Rate 17 Blood Pressure 145/92 H 140/94 H Pulse Oximetry 98 97 93 L 06/07/18 08:00 06/07/18 08:08 06/07/18 12:00 Temperature 98.2 F 98.4 F Pulse Rate 97 H 96 H Respiratory Rate 9 L 10 L Blood Pressure 139/47 L 139/89 Pulse Oximetry 95 94 L 95 Intake & Output 06/06/18 06/07/18 06/07/18 18:59 06:59 18:59 Intake Total 1857.5 / 1857.5 1290 / 1290 1180 / 1180 Output Total 500 / 500 1000 / 1000 Balance 1357.5 / 1357.5 290 / 290 1180 / 1180 Weight 98.7 kg Intake: IV 1617.5 / 1617.5 50 / 50 1180 / 1180 NS Inj 1,000 ML @ 42 mls/hr IV. 1000 / 1000 1080 / 1080 CONT .[id number] [facility] Rx#:[id number] Zosyn 3.375 GM Premix 50 ML @ 100 / 100 50 / 50 100 / 100 100 mls/hr IV.SIG Q6H [facility] Rx#: [id number] Vancomycin Inj 1,750 MG In NS 517.5 / 517.5 Inj 500 ML @ 250 mls/hr IV.SIG ONCE ONE Rx#:[id number] Oral 240 / 240 640 / 640 Anesthesia Amount 600 / 600 Output: Urine 450 / 450 800 / 800 Estimated Blood Loss 100 / 100 Gastric Drainage 100 / 100 Orogastric Tube 100 / 100 Wound Vac Amount 50 / 50 0 / 0 Right Leg 50 / 50 0 / 0 Other: Mode Setting Right Leg Continuous Continuous Continuous Sacrum Continuous # Voids 3 # Incontinent Voids 3 Date of Last Bowel Movement 06/05/18 06/05/18 06/07/18 # Bowel Movements 2 Laboratory Results - last 24 hr 06/06/18 06/06/18 06/07/18 16:55 22:37 06:29 WBC 13.3 H RBC 3.14 L Hgb 8.7 L Hct 26.4 L MCV 84.1 MCH 27.6 MCHC 32.8 RDW 17.7 H Plt Count 376 MPV 6.4 L Neut % (Auto) 78.3 H Lymph % (Auto) 12.5 [place] % (Auto) 6.1 Eos % (Auto) 2.4 Baso % (Auto) 0.7 Neut # (Auto) 10.4 H Lymph # (Auto) 1.7 [place] # (Auto) 0.8 Eos # (Auto) 0.3 Baso # (Auto) 0.1 WBC Differential . Differential Comment Auto diff final Sodium Potassium Chloride Carbon Dioxide Anion Gap BUN Creatinine Estimated GFR POC Glucose 196 H 188 H Random Glucose Calcium Prot Corrected Calcium Total Protein 06/07/18 06/07/18 06:29 11:35 WBC RBC Hgb Hct MCV MCH MCHC RDW Plt Count MPV Neut % (Auto) Lymph % (Auto) [place] % (Auto) Eos % (Auto) Baso % (Auto) Neut # (Auto) Lymph # (Auto) [place] # (Auto) Eos # (Auto) Baso # (Auto) WBC Differential Differential Comment Sodium 143 Potassium 3.4 L Chloride 114 H Carbon Dioxide 21.2 Anion Gap 8 BUN 50 H Creatinine 1.63 H Estimated GFR 45 L POC Glucose 183 H Random Glucose 211 H Calcium 7.4 L* Prot Corrected Calcium 8.0 L Total Protein 6.0 L Microbiology 06/02/18 18:48 Gram Stain - Final Wound - Foot Wound Culture - Final Escherichia coli S. aureus MRSA Mixed Anaerobes 06/02/18 18:48 Fungal Smear - Final Wound - Foot No fungal elements seen 06/02/18 18:48 Acid Fast Bacilli Smear - Final Wound - Foot No acid fast bacilli seen 06/05/18 15:13 Clostridium difficile GDH Antigen - Final Stool Positive - C. difficile Antigen detected. Clostridium difficile Toxin Assay - Final Negative - No C. difficile Toxin A or B detected.
--- NOTE | 2018-06-07 17:49 | P.PNID ---
Subjective Remarks: ID Coverage C Diff (+) no fever extubated Antibiotics: vanco IV zosyn Vanco po Past Medical History: Congestive heart failure Type 2 diabetes mellitus Cholecystectomy Allergies/Adverse Reactions: Allergies No Known Allergies Allergy (Unverified 06/02/18 15:19) Objective Vital Signs 06/06/18 18:00 06/06/18 20:00 06/06/18 22:29 Temperature 98.4 F Pulse Rate 94 H 96 H Respiratory Rate 13 Blood Pressure 130/80 Pulse Oximetry 98 98 06/07/18 00:00 06/07/18 04:00 06/07/18 08:00 Temperature 98.8 F 98.8 F 98.2 F Pulse Rate 95 H 99 H 97 H Respiratory Rate 17 9 L Blood Pressure 145/92 H 140/94 H 139/47 L Pulse Oximetry 97 93 L 95 06/07/18 08:08 06/07/18 12:00 06/07/18 16:00 Temperature 98.4 F 98.4 F Pulse Rate 96 H 96 H Respiratory Rate 10 L 12 Blood Pressure 139/89 136/86 Pulse Oximetry 94 L 95 97 Intake & Output 06/06/18 06/07/18 06/07/18 18:59 06:59 18:59 Intake Total 1857.5 / 1857.5 1290 / 1290 1180 / 1180 Output Total 500 / 500 1000 / 1000 Balance 1357.5 / 1357.5 290 / 290 1180 / 1180 Weight 98.7 kg Intake: IV 1617.5 / 1617.5 50 / 50 1180 / 1180 NS Inj 1,000 ML @ 42 mls/hr IV. 1000 / 1000 1080 / 1080 CONT .[id number] [facility] Rx#:[id number] Zosyn 3.375 GM Premix 50 ML @ 100 / 100 50 / 50 100 / 100 100 mls/hr IV.SIG Q6H [facility] Rx#: [id number] Vancomycin Inj 1,750 MG In NS 517.5 / 517.5 Inj 500 ML @ 250 mls/hr IV.SIG ONCE ONE Rx#:[id number] Oral 240 / 240 640 / 640 Anesthesia Amount 600 / 600 Output: Urine 450 / 450 800 / 800 Estimated Blood Loss 100 / 100 Gastric Drainage 100 / 100 Orogastric Tube 100 / 100 Wound Vac Amount 50 / 50 0 / 0 Right Leg 50 / 50 0 / 0 Other: Mode Setting Right Leg Continuous Continuous Continuous Sacrum Continuous # Voids 3 # Incontinent Voids 3 Date of Last Bowel Movement 06/05/18 06/05/18 06/07/18 # Bowel Movements 2 06/02/18 18:48 Wound - Foot Gram Stain - Final 06/02/18 18:48 Wound - Foot Wound Culture - Final Escherichia coli S. aureus MRSA Mixed Anaerobes 06/02/18 18:48 Wound - Foot Fungal Smear - Final No fungal elements seen 06/02/18 18:48 Wound - Foot Fungal Culture - Pending 06/02/18 18:48 Wound - Foot Acid Fast Bacilli Smear - Final No acid fast bacilli seen 06/02/18 18:48 Wound - Foot Mycobacterial Culture - Pending 06/05/18 15:13 Stool Clostridium difficile GDH Antigen - Final Positive - C. difficile Antigen detected. 06/05/18 15:13 Stool Clostridium difficile Toxin Assay - Final Negative - No C. difficile Toxin A or B detected. 06/02/18 17:15 Wound - Foot Gram Stain - Final 06/02/18 17:15 Wound - Foot Wound Culture - Final Escherichia coli Alcaligenes species S. aureus MRSA 06/02/18 16:25 Blood - Peripheral Aerobic Blood Culture - Final Escherichia coli 06/02/18 16:25 Blood - Peripheral Anaerobic Blood Culture - Final gram negative rods 06/02/18 16:20 Blood - Peripheral Aerobic Blood Culture - Final Escherichia coli 06/02/18 16:20 Blood - Peripheral Anaerobic Blood Culture - Final Escherichia coli Lab - Hematology Results 06/06/18 06/07/18 05:50 06:29 WBC 15.4 H 13.3 H RBC 2.97 L 3.14 L Hgb 8.3 L 8.7 L Hct 25.0 L 26.4 L MCV 84.1 84.1 MCH 27.8 27.6 MCHC 33.1 32.8 RDW 18.0 H 17.7 H Plt Count 353 D 376 MPV 6.5 L 6.4 L Neut % (Auto) 79.5 H 78.3 H Lymph % (Auto) 13.8 12.5 [place] % (Auto) 4.6 6.1 Eos % (Auto) 1.6 2.4 Baso % (Auto) 0.5 0.7 Neut # (Auto) 12.3 H 10.4 H Lymph # (Auto) 2.1 1.7 [place] # (Auto) 0.7 0.8 Eos # (Auto) 0.2 0.3 Baso # (Auto) 0.1 0.1 WBC Differential . . Differential Comment Auto diff final Auto diff final Lab - Chemistry Results 06/05/18 06/06/18 06/06/18 20:03 05:50 08:41 Sodium 142 Potassium 3.5 Chloride 112 H Carbon Dioxide 20.1 L Anion Gap 10 BUN 53 H Creatinine 1.67 H Estimated GFR 43 L POC Glucose 227 H 209 H Random Glucose 205 H Calcium 6.8 L* Prot Corrected Calcium 7.5 L Total Protein 5.7 L 06/06/18 06/06/18 06/07/18 16:55 22:37 06:29 Sodium 143 Potassium 3.4 L Chloride 114 H Carbon Dioxide 21.2 Anion Gap 8 BUN 50 H Creatinine 1.63 H Estimated GFR 45 L POC Glucose 196 H 188 H Random Glucose 211 H Calcium 7.4 L* Prot Corrected Calcium 8.0 L Total Protein 6.0 L 06/07/18 06/07/18 11:35 16:31 Sodium Potassium Chloride Carbon Dioxide Anion Gap BUN Creatinine Estimated GFR POC Glucose 183 H 167 H Random Glucose Calcium Prot Corrected Calcium Total Protein Imaging: ITS Impressions Venous Doppler Study 06/02/18 15:46 CONCLUSION: 1. No sonographic evidence of lower extremity DVT. 2. Bilateral lower extremity subcutaneous edema. 3. Multiple lymph nodes seen in both groins, some of which are abnormally enlarged. Recommend clinical correlation. Foot X-Ray 06/02/18 15:52 CONCLUSION: Extensive subcutaneous air. No bone fracture or dislocation Chest X-Ray 06/05/18 06:00 CONCLUSION: Interim extubation and nasogastric tube removal. No significant change right greater the left pleural effusions and basilar consolidation. Physical Exam: GENERAL: Awakens easily, NAD SKIN: Warm and dry. No rash HEAD: Atraumatic. Normocephalic. EYES: Pupils equal and round. No scleral icterus. No injection or drainage. ENT: No nasal bleeding or discharge. Mucous membranes pink and moist. NECK: Trachea midline. No JVD. CARDIOVASCULAR: Regular rate and rhythm. RESPIRATORY: No accessory muscle use. Clear to auscultation. Breath sounds equal bilaterally. GASTROINTESTINAL: Abdomen soft, non-tender, mildly distended. Hepatic and splenic margins not palpable. MUSCULOSKELETAL: Extremities without clubbing, cyanosis, or edema. Has dry dressing at amputation site with wound vac in place, has blood output. NEUROLOGICAL: Non-focal PSYCHIATRIC: calm, cooperative Assessment and Plan - Plan Impression Sepsis, E coli - better Gas gangrene RLE, S/P guillotine amputation RBKA, C/S polymicrobial life treatening severe R foot DFI Gas gangrene R foot, polimicrobial mixed aerobic/anaerobic infx, including MRSA Acutre VDRF- resolved ARF - resolving C difficile colitis Recommendation Continue zosyn Continue vancomycin for MRSA co-infx Stop dates for systemic abx after definitive surgical treatment: planned on Thu Continue po Vancomycin for C diff dw Dr Dexter
[2018-06-08] MEDS: Piperacil/Tazo 3.375 GM Premix 50 ML IV.SIG SCH ×4 (03:14→20:45)
[2018-06-08] MEDS: Heparin - SQ 10,000 UNITS/ML Vial SQ SCH ×3 (05:23→22:50)
[2018-06-08 07:01] LABS: Baso # (Auto) 0.1 th/mm3 (0.0-0.2); Baso % (Auto) 0.8 % (0.0-2.0); Eos # (Auto) 0.2 th/mm3 (0.0-0.4); Eos % (Auto) 1.6 % (0.0-4.0); Hematocrit 25.9 % (39.0-51.0); Hemoglobin 8.7 gm/dL (13.0-17.0); Lymph % (Auto) 15.5 % (9.0-44.0); Mean Corpuscular HGB Conc 33.4 % (32.0-36.0); Mean Corpuscular Volume 83.7 fL (80.0-100.0); Mean Platelet Volume 6.5 fL (7.0-11.0); Mono # (Auto) 0.7 th/mm3 (0.0-0.9); Mono % (Auto) 5.2 % (0.0-8.0); Neut % (Auto) 76.9 % (16.0-70.0); Platelet Count 347 th/mm3 (150-450); Red Blood Count 3.09 mil/mm3 (4.50-5.90); Red Cell Distribution Width 17.6 % (11.6-17.2)
[2018-06-08 07:30] LABS: Calcium 7.1 mg/dL (8.5-10.1); Carbon Dioxide 21.6 meq/L (21.0-32.0); Potassium 3.4 meq/L (3.5-5.1); Vancomycin,Random 16.7 Comment
[2018-06-08] MEDS: Insulin NovoLOG Aspart Correctional Sugar Inj SQ SCH ×4 (07:56→20:44)
[2018-06-08] MEDS: Famotidine PF Inj 20 MG/2 ML Vial IV.PUSH SCH ×2 (08:08→20:44)
[2018-06-08] MEDS: Senna/Docusate Sodium 8.6/50 MG Tablet PO SCH ×2 (08:08→20:45)
[2018-06-08 08:14] LABS: Total Protein 6.4 g/dL (6.4-8.2)
[2018-06-08] MEDS: Vancomycin Inj 1,750 MG in Sodium Chlor 0.9% Inj 500 ML IV.SIG SCH (11:39)
[2018-06-08] MEDS: Morphine Inj 4 MG/ML Vial IV.PUSH PRN ×2 (11:39→21:41)
--- NOTE | 2018-06-08 13:11 | P.PNIM ---
Subjective Interval history: Patient reports is feeling okay. Minimal drainage from wound VAC. Pain is controlled. Physical Exam Vital signs: Vital Signs 06/07/18 16:00 06/07/18 20:00 06/07/18 22:25 Temperature 98.4 F 98.2 F Pulse Rate 96 H 103 H Respiratory Rate 12 16 Blood Pressure 136/86 149/91 H Pulse Oximetry 97 96 95 06/08/18 00:00 06/08/18 04:00 06/08/18 08:00 Temperature 98.1 F 98.2 F 98 F Pulse Rate 94 H 95 H 95 H Respiratory Rate 20 14 15 Blood Pressure 127/81 127/81 145/89 H Pulse Oximetry 97 99 97 Intake & Output 06/07/18 06/08/18 06/08/18 18:59 06:59 18:59 Intake Total 1590 / 1590 460 / 460 50 / 50 Output Total 600 / 600 900 / 900 Balance 990 / 990 -440 / -440 50 / 50 Weight 97 kg Intake: IV 1230 / 1230 100 / 100 50 / 50 NS Inj 1,000 ML @ 42 mls/hr IV. 1080 / 1080 CONT .[id number] [facility] Rx#:[id number] Zosyn 3.375 GM Premix 50 ML @ 150 / 150 100 / 100 50 / 50 100 mls/hr IV.SIG Q6H [facility] Rx#: [id number] Oral 360 / 360 360 / 360 Output: Urine 600 / 600 900 / 900 Other: Mode Setting Right Leg Continuous Continuous Continuous Date of Last Bowel Movement 06/07/18 06/08/18 06/08/18 # Bowel Movements 2 1 Narrative: GENERAL: This is a well-nourished, well-developed patient, in no apparent distress. CARDIOVASCULAR: Normal rate and regular rhythm without murmurs, gallops, or rubs. RESPIRATORY: Good respiratory efforts. Breath sounds equal and clear to auscultation bilaterally. GASTROINTESTINAL: Abdomen soft, non-tender, non-distended. Normal active bowel sounds MUSCULOSKELETAL: Status post right BKA. Wound VAC in place. NEURO: Alert & Oriented x4 to person, place, time, situation. Moves all ext x4 PSYCH: Appropriate mood and affect. - Urinary Catheter Management Indwelling Urethral Catheter Cath placed during this visit: yes, but has since been removed by the nurse Reason for continuing: Decision to DC catheter Insertion date: 06/02/18 Insertion time: 19:38 Removal date: 06/05/18 Removal time: 18:00 Results - Labs CBC & Chem 7: 06/08/18 06:24 06/08/18 06:24 Laboratory Results - last 24 hr 06/07/18 06/07/18 06/08/18 16:31 20:22 06:24 WBC RBC Hgb Hct MCV MCH MCHC RDW Plt Count MPV Neut % (Auto) Lymph % (Auto) [place] % (Auto) Eos % (Auto) Baso % (Auto) Neut # (Auto) Lymph # (Auto) [place] # (Auto) Eos # (Auto) Baso # (Auto) WBC Differential Differential Comment Sodium 146 H Potassium 3.4 L Chloride 114 H Carbon Dioxide 21.6 Anion Gap 10 BUN 39 H Creatinine 1.43 H Estimated GFR 52 L POC Glucose 167 H 154 H Random Glucose 159 H Calcium 7.1 L* Prot Corrected Calcium 7.5 L Total Protein 6.4 Random Vancomycin 16.7 06/08/18 06:24 WBC 13.0 H RBC 3.09 L Hgb 8.7 L Hct 25.9 L MCV 83.7 MCH 28.0 MCHC 33.4 RDW 17.6 H Plt Count 347 MPV 6.5 L Neut % (Auto) 76.9 H Lymph % (Auto) 15.5 [place] % (Auto) 5.2 Eos % (Auto) 1.6 Baso % (Auto) 0.8 Neut # (Auto) 10.0 H Lymph # (Auto) 2.0 [place] # (Auto) 0.7 Eos # (Auto) 0.2 Baso # (Auto) 0.1 WBC Differential . Differential Comment Auto diff final Sodium Potassium Chloride Carbon Dioxide Anion Gap BUN Creatinine Estimated GFR POC Glucose Random Glucose Calcium Prot Corrected Calcium Total Protein Random Vancomycin Assessment and Plan - Plan 53-year-old male admitted with acute septic shock, respiratory failure status post extubation and BKA. Patient has been receiving ICU care and stabilized for transfer to the hospitalist service. Post Respiratory failure -Extubated, breathing comfortably. -No upper airway problems. Septic shock Gangrene of the right foot -Broad-spectrum antibiotic with vancomycin and Zosyn, -Appreciate infectious disease following. Multiple blood cultures with E. coli , wound culture with E. coli, gram-negative ankur, MRSA -Status post I&D and debridement, status post BKA yesterday by Dr. Quiles -Shock resolved -Wound VAC in place. Vascular surgery planning for closure tomorrow. Blood loss anemia -s/p 3 units of PRBC now -Monitor H&H and transfuse to keep hemoglobin above 7 Acute kidney injury -Strict I's and O's. IV fluid hydration -Monitor electrolytes and creatinine level -Creatinine has improved, urine output adequate. Stabilized Diabetes mellitus -Insulin sliding scale DVT GI prophylaxis -Teds SCDs -Heparin subcu-if okay with surgeon -Pepcid Discharge Planning: Okay to transfer to medical floor. Continue IV antibiotics per infectious disease.
--- NOTE | 2018-06-08 15:15 | P.PNVS ---
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 Wound VAC in place It should be noted that the time of surgery patient had purulent drainage from the proximal portion of the amputation so will take a few days before patient is ready for any further surgery In the best case scenario will undergo washout of the stump and closure on Thursday but depending on what it looks like I may delay the final closure for another few days after that In the meantime patient can be safely extubated and transferred to floor when stable 06/05/2018 Patient status post guillotine amputation of the right foot Considering the amount of infection gas gangrene and purulent drainage wound VAC will remain on for next few days Will likely washout the change wound VAC on Thursday and then go ahead and closed the incision probably around Thursday06/06/2018 Considering the amount of purulent drainage and degree of infection and gas gangrene I believe it is probably leonard to postpone final closure until at least Thursday Patient should have a washout of the stump at the bedside the new wound VAC placement tomorrow 06/07/2018 Wound VAC changed today Amputation site appears to be much opening machine cleaner Will likely closed the incision on Thursday Nothing to add at this time 06/08/2018 Patient had not had a change of wound VAC yet Wound care has been consulted but I do not know why the wound VAC was not changed Will now postpone final surgery until but wound VAC has to be changed and wound washed out today For closure of the BKA stump on Thursday Objective Vital Signs / I&O: Vital Signs 06/07/18 16:00 06/07/18 20:00 06/07/18 22:25 Temperature 98.4 F 98.2 F Pulse Rate 96 H 103 H Respiratory Rate 12 16 Blood Pressure 136/86 149/91 H Pulse Oximetry 97 96 95 06/08/18 00:00 06/08/18 04:00 06/08/18 08:00 Temperature 98.1 F 98.2 F 98 F Pulse Rate 94 H 95 H 95 H Respiratory Rate 20 14 15 Blood Pressure 127/81 127/81 145/89 H Pulse Oximetry 97 99 97 Intake & Output 06/07/18 06/08/18 06/08/18 18:59 06:59 18:59 Intake Total 1590 / 1590 460 / 460 567.5 / 567.5 Output Total 600 / 600 900 / 900 Balance 990 / 990 -440 / -440 567.5 / 567.5 Weight 97 kg Intake: IV 1230 / 1230 100 / 100 567.5 / 567.5 NS Inj 1,000 ML @ 42 mls/hr IV. 1080 / 1080 CONT .[id number] [facility] Rx#:[id number] Zosyn 3.375 GM Premix 50 ML @ 150 / 150 100 / 100 50 / 50 100 mls/hr IV.SIG Q6H [facility] Rx#: [id number] Vancomycin Inj 1,750 MG In NS 517.5 / 517.5 Inj 500 ML @ 250 mls/hr IV.SIG Q48H [facility] Rx#:[id number] Oral 360 / 360 360 / 360 Output: Urine 600 / 600 900 / 900 Other: Mode Setting Right Leg Continuous Continuous Continuous Date of Last Bowel Movement 06/07/18 06/08/18 06/08/18 # Bowel Movements 2 1 Laboratory Results - last 24 hr 06/07/18 06/07/18 06/08/18 16:31 20:22 06:24 WBC RBC Hgb Hct MCV MCH MCHC RDW Plt Count MPV Neut % (Auto) Lymph % (Auto) [place] % (Auto) Eos % (Auto) Baso % (Auto) Neut # (Auto) Lymph # (Auto) [place] # (Auto) Eos # (Auto) Baso # (Auto) WBC Differential Differential Comment Sodium 146 H Potassium 3.4 L Chloride 114 H Carbon Dioxide 21.6 Anion Gap 10 BUN 39 H Creatinine 1.43 H Estimated GFR 52 L POC Glucose 167 H 154 H Random Glucose 159 H Calcium 7.1 L* Prot Corrected Calcium 7.5 L Total Protein 6.4 Random Vancomycin 16.7 06/08/18 06:24 WBC 13.0 H RBC 3.09 L Hgb 8.7 L Hct 25.9 L MCV 83.7 MCH 28.0 MCHC 33.4 RDW 17.6 H Plt Count 347 MPV 6.5 L Neut % (Auto) 76.9 H Lymph % (Auto) 15.5 [place] % (Auto) 5.2 Eos % (Auto) 1.6 Baso % (Auto) 0.8 Neut # (Auto) 10.0 H Lymph # (Auto) 2.0 [place] # (Auto) 0.7 Eos # (Auto) 0.2 Baso # (Auto) 0.1 WBC Differential . Differential Comment Auto diff final Sodium Potassium Chloride Carbon Dioxide Anion Gap BUN Creatinine Estimated GFR POC Glucose Random Glucose Calcium Prot Corrected Calcium Total Protein Random Vancomycin Microbiology 06/02/18 18:48 Fungal Smear - Final Wound - Foot No fungal elements seen Fungal Culture - Final No growth in 1 week
[2018-06-09] MEDS: Piperacil/Tazo 3.375 GM Premix 50 ML IV.SIG SCH ×4 (03:09→21:35)
[2018-06-09] MEDS: Morphine Inj 4 MG/ML Vial IV.PUSH PRN ×3 (03:09→20:26)
[2018-06-09 06:09] LABS: Hematocrit 26.7 % (39.0-51.0); Hemoglobin 8.8 gm/dL (13.0-17.0); Mean Corpuscular Hemoglobin 27.7 pg (27.0-34.0); Mean Corpuscular Volume 84.1 fL (80.0-100.0); Mean Platelet Volume 6.2 fL (7.0-11.0); Platelet Count 363 th/mm3 (150-450); Red Blood Count 3.18 mil/mm3 (4.50-5.90); Red Cell Distribution Width 17.8 % (11.6-17.2); White Blood Count 13.2 th/mm3 (4.0-11.0)
[2018-06-09] MEDS: Heparin - SQ 10,000 UNITS/ML Vial SQ SCH ×3 (06:12→21:35)
[2018-06-09 07:21] LABS: Calcium 7.3 mg/dL (8.5-10.1); Carbon Dioxide 21.4 meq/L (21.0-32.0); Potassium 3.4 meq/L (3.5-5.1)
[2018-06-09 07:41] LABS: Total Protein 6.7 g/dL (6.4-8.2)
[2018-06-09] MEDS: Famotidine PF Inj 20 MG/2 ML Vial IV.PUSH SCH ×2 (09:40→20:27)
[2018-06-09] MEDS: Insulin NovoLOG Aspart Correctional Sugar Inj SQ SCH ×4 (09:41→21:37)
[2018-06-09] MEDS: Senna/Docusate Sodium 8.6/50 MG Tablet PO SCH ×2 (09:41→20:26)
--- NOTE | 2018-06-09 11:33 | P.PNWCN ---
Wound Care Nurse Consult Description: wound consult ordered by for wound vac management. Communicated with: Mariana MORE, Recommendation: Please follow Wound vac guidelines for maintaining seal and trouble shooting. Additional information: Patient was seen today by typewriter mechanic or wound vac management.Consult sent by @[phone] for wash out and vac change.Patient alert resting in bed in no acute distress.Per patient wound vac has not been changed since initial surgery .Wound vac nursing orders placed 06/05 by . Stock Plan Administrator seen patient 06/07 for wound management of coccyx. Original surgical draping and vac Dressing removed from right below knee amputation with out difficulty.Single black sponge removed intact wound base washout with ~120ml of sterile saline.Pat dry .Periwound Cavilon skin prep applied and drape applied up to wound edges , double layer of adaptic gauze applied to exposed Bone Single layer black GranuFoam applied to wound base and cover/secured with trac pad, suction initiated @125mmHg low continuous suction with no leaks noted.Dressing to left calcaneus soiled .Mariana RN to change post op. Wound/Pressure Injury - Wound Right Leg Wound Assessment: Ongoing Wound Type: Traumatic Amputation Is This a Chronic Wound: No Requested from Provider a Wound Care Consult: No Drainage Description: Serosanguinous Drainage Amount: Minimal Dressing Status: Changed Wound Packing Type: Woundvac Sponge Primary Dressing: Negative Pressure Wound Dressing Cover Dressing: Elastic Bandage intra gluteal cleft Wound Type: Maceration Is This a Chronic Wound: No Requested from Provider a Wound Care Consult: No (Julieth MORE,[facility] seen 06/07) Wound Bed Appearance: Peeling Skin, [place] Dressing Status: Open to Air Topical: [place] Wound Vac - Wound Vac Right Leg Pressure Setting (mmHg): 125 Mode Setting: Continuous Drainage Description: Sanguinous Foam type: Black, Other (double layer adaptic.) Incision - Incision Right Leg Incision/Surgery Date: 06/03/18
[2018-06-09] MEDS ORDERED: Lidocaine PF 1% Inj 5 ML Syringe OTHER ONE (13:50)
[2018-06-09] MEDS ORDERED: fentaNYL Citrate Inj 100 MCG/2 ML Ampul ONE (15:06)
--- NOTE | 2018-06-09 15:32 | P.PNIM ---
Subjective Interval history: Patient reports he is feeling okay. Pain is controlled. Physical Exam Vital signs: Vital Signs 06/08/18 16:00 06/08/18 20:00 06/08/18 20:18 Temperature 98.7 F 98.6 F Pulse Rate 88 86 Respiratory Rate 17 12 Blood Pressure 140/86 132/83 Pulse Oximetry 96 94 L 96 06/09/18 00:00 06/09/18 04:00 06/09/18 08:00 Temperature 98.7 F 98.6 F 98.4 F Pulse Rate 83 91 H 84 Respiratory Rate 21 17 11 L Blood Pressure 133/78 127/79 127/79 Pulse Oximetry 98 95 95 06/09/18 12:00 06/09/18 15:03 Temperature 98.9 F 98 F Pulse Rate 88 85 Respiratory Rate 11 L 18 Blood Pressure 142/78 H 102/61 Pulse Oximetry 96 92 L Intake & Output 06/08/18 06/09/18 06/09/18 18:59 06:59 18:59 Intake Total 1097.5 / 1097.5 100 / 100 350 / 350 Output Total 600 / 600 375 / 375 505 / 505 Balance 497.5 / 497.5 -275 / -275 -155 / -155 Weight 97 kg Intake: IV 617.5 / 617.5 100 / 100 50 / 50 Zosyn 3.375 GM Premix 50 ML @ 100 / 100 100 / 100 50 / 50 100 mls/hr IV.SIG Q6H [facility] Rx#: [id number] Vancomycin Inj 1,750 MG In NS 517.5 / 517.5 Inj 500 ML @ 250 mls/hr IV.SIG Q48H [facility] Rx#:[id number] Oral 480 / 480 Anesthesia Amount 300 / 300 Output: Urine 600 / 600 375 / 375 Estimated Blood Loss 5 / 5 Urine Amount (Catheter) 500 / 500 Indwelling Urethral Catheter 500 / 500 Wound Vac Amount 0 / 0 0 / 0 Right Leg 0 / 0 0 / 0 Other: Mode Setting Right Leg Continuous Continuous Continuous Sacrum Continuous Date of Last Bowel Movement 06/08/18 06/05/18 06/08/18 # Bowel Movements 1 Weight On Admission 97 kg Narrative: GENERAL: This is a well-nourished, well-developed patient, in no apparent distress. CARDIOVASCULAR: Normal rate and regular rhythm without murmurs, gallops, or rubs. RESPIRATORY: Good respiratory efforts. Breath sounds equal and clear to auscultation bilaterally. GASTROINTESTINAL: Abdomen soft, non-tender, non-distended. Normal active bowel sounds MUSCULOSKELETAL: Status post right BKA. Wound VAC in place. NEURO: Alert & Oriented x4 to person, place, time, situation. Moves all ext x4 PSYCH: Appropriate mood and affect. - Urinary Catheter Management Indwelling Urethral Catheter Cath placed during this visit: yes, but has since been removed by the nurse Reason for continuing: Decision to DC catheter Insertion date: 06/09/18 Insertion time: 13:59 Removal date: 06/09/18 Removal time: 14:57 Results - Labs CBC & Chem 7: 06/09/18 05:34 06/09/18 05:39 Laboratory Results - last 24 hr 06/08/18 06/08/18 06/09/18 17:33 20:33 01:46 WBC RBC Hgb Hct MCV MCH MCHC RDW Plt Count MPV Sodium Potassium Chloride Carbon Dioxide Anion Gap BUN Creatinine Estimated GFR POC Glucose 118 H 141 H Random Glucose Calcium Prot Corrected Calcium Magnesium Total Protein Blood Type O Negative Blood Type Recheck Not needed Antibody Screen Negative MTS Gel Crossmatch See Detail 06/09/18 06/09/18 06/09/18 05:34 05:39 05:39 WBC 13.2 H RBC 3.18 L Hgb 8.8 L Hct 26.7 L MCV 84.1 MCH 27.7 MCHC 33.0 RDW 17.8 H Plt Count 363 MPV 6.2 L Sodium 144 Potassium 3.4 L Chloride 115 H Carbon Dioxide 21.4 Anion Gap 8 BUN 37 H Creatinine 1.29 Estimated GFR 58 L POC Glucose Random Glucose 113 H Calcium 7.3 L* Prot Corrected Calcium 7.5 L Magnesium 2.0 Total Protein 6.7 Blood Type Blood Type Recheck Antibody Screen MTS Gel Crossmatch Microbiology 06/02/18 18:48 Wound - Foot Acid Fast Bacilli Smear - Final No acid fast bacilli seen 06/02/18 18:48 Wound - Foot Mycobacterial Culture - Preliminary No growth in 1 week 06/02/18 18:48 Wound - Foot Fungal Smear - Final No fungal elements seen 06/02/18 18:48 Wound - Foot Fungal Culture - Final No growth in 1 week Assessment and Plan - Plan 53-year-old male admitted with acute septic shock, respiratory failure status post extubation and BKA. Patient has been receiving ICU care and stabilized for transfer to the hospitalist service. Post Respiratory failure -Extubated, breathing comfortably. -No upper airway problems. Septic shock Gangrene of the right foot -Broad-spectrum antibiotic with vancomycin and Zosyn, -Appreciate infectious disease following. Multiple blood cultures with E. coli , wound culture with E. coli, gram-negative ankur, MRSA -Status post I&D and debridement, status post BKA yesterday by Dr. Quiles -Shock resolved -Wound VAC in place to be changed today by cell pourer per vascular surgery. Vascular surgery will consider closure on . Blood loss anemia -s/p 3 units of PRBC now -Monitor H&H and transfuse to keep hemoglobin above 7 Acute kidney injury -Strict I's and O's. IV fluid hydration -Monitor electrolytes and creatinine level -Creatinine has improved, urine output adequate. Stabilized Diabetes mellitus -Insulin sliding scale DVT GI prophylaxis -Teds SCDs -Heparin subcu-if okay with surgeon -Luke Discharge Planning: Continue IV antibiotics per infectious disease. Wound care per surgery.
--- NOTE | 2018-06-09 16:03 | MP ---
cc: Jean Dexter MD DATE OF OPERATION: 06/09/2018 DATE OF SURGERY: 06/09/2018 POSTOPERATIVE DIAGNOSIS: Gangrene of the right foot and gas gangrene of the right leg with purulent drainage. POSTOPERATIVE DIAGNOSIS: Gangrene of the right foot and gas gangrene of the right leg with purulent drainage. PROCEDURE PERFORMED: Washout of the left leg and new wound VAC placement. SURGEON: Jean Detxer MD. ANESTHESIA: General. ESTIMATED BLOOD LOSS: Minimal. DESCRIPTION OF PROCEDURE: The patient was prepped and draped in the usual fashion. The stump is explored. Initially, I thought that there might be an option to close the posterior flap and close the amputation as a second stage procedure. Unfortunately, the patient is still draining purulent material from between the muscle groups from the stump. Therefore, this was irrigated with copious amounts of saline and muscle groups are opened about 50 mL of purulent material drains diffusely between the muscles out. Therefore, this was irrigated with another liter of saline and then new wound VAC is applied. Unfortunately, this patient is not ready for closure of his stump due to the ongoing purulent collections. MD RACHID Marin/ct , 03:32 PM , 03:39 PM
[2018-06-10] MEDS: Piperacil/Tazo 3.375 GM Premix 50 ML IV.SIG SCH ×4 (03:55→20:58)
[2018-06-10] MEDS: Heparin - SQ 10,000 UNITS/ML Vial SQ SCH ×3 (05:48→21:10)
[2018-06-10] MEDS: Morphine Inj 4 MG/ML Vial IV.PUSH PRN ×3 (07:22→18:02)
[2018-06-10] MEDS: Insulin NovoLOG Aspart Correctional Sugar Inj SQ SCH ×4 (09:29→20:57)
[2018-06-10] MEDS: Famotidine PF Inj 20 MG/2 ML Vial IV.PUSH SCH ×2 (09:58→20:57)
[2018-06-10] MEDS: Senna/Docusate Sodium 8.6/50 MG Tablet PO SCH ×2 (09:59→20:57)
[2018-06-10] MEDS ORDERED: Pharmacy Ordered Lab Info OTHER ONE (10:45)
[2018-06-10] MEDS: Vancomycin Inj 1,750 MG in Sodium Chlor 0.9% Inj 500 ML IV.SIG SCH (12:30)
--- NOTE | 2018-06-10 14:28 | P.PNIM ---
Subjective Interval history: Patient reports he is feeling ok. Pain is controlled. Physical Exam Vital signs: Vital Signs 06/09/18 15:03 06/09/18 15:15 06/09/18 15:30 Temperature 98 F Pulse Rate 85 86 85 Respiratory Rate 18 18 18 Blood Pressure 102/61 111/66 125/74 Pulse Oximetry 92 L 93 L 93 L 06/09/18 15:55 06/09/18 16:00 06/09/18 20:00 Temperature 98 F 97.9 F 95.2 F L Pulse Rate 86 91 H 103 H Respiratory Rate 18 18 18 Blood Pressure 131/81 141/89 H 144/89 H Pulse Oximetry 94 L 96 92 L 06/10/18 00:00 06/10/18 04:00 06/10/18 08:00 Temperature 97.3 F L 97.1 F L 98.5 F Pulse Rate 92 H 101 H 92 H Respiratory Rate 18 16 18 Blood Pressure 122/83 117/70 120/70 Pulse Oximetry 93 L 90 L 94 L 06/10/18 12:00 Temperature 98.4 F Pulse Rate 94 H Respiratory Rate 16 Blood Pressure 141/81 H Pulse Oximetry 94 L Intake & Output 06/09/18 06/10/18 06/10/18 18:59 06:59 18:59 Intake Total 400 / 400 220 / 220 50 / 50 Output Total 505 / 505 300 / 300 Balance -105 / -105 -80 / -80 50 / 50 Weight 97.3 kg Intake: IV 100 / 100 100 / 100 50 / 50 Zosyn 3.375 GM Premix 50 ML @ 100 / 100 100 / 100 50 / 50 100 mls/hr IV.SIG Q6H [facility] Rx#: [id number] Oral 120 / 120 Anesthesia Amount 300 / 300 Output: Urine 300 / 300 Estimated Blood Loss 5 / 5 Urine Amount (Catheter) 500 / 500 Indwelling Urethral Catheter 500 / 500 Other: Mode Setting Right Leg Continuous Continuous Sacrum Continuous Date of Last Bowel Movement 06/08/18 Narrative: GENERAL: This is a well-nourished, well-developed patient, in no apparent distress. CARDIOVASCULAR: Normal rate and regular rhythm without murmurs, gallops, or rubs. RESPIRATORY: Good respiratory efforts. Breath sounds equal and clear to auscultation bilaterally. GASTROINTESTINAL: Abdomen soft, non-tender, non-distended. Normal active bowel sounds MUSCULOSKELETAL: Status post right BKA. Wound VAC in place. NEURO: Alert & Oriented x4 to person, place, time, situation. Moves all ext x4 PSYCH: Appropriate mood and affect. - Urinary Catheter Management Indwelling Urethral Catheter Cath placed during this visit: yes, but has since been removed by the nurse Reason for continuing: Decision to DC catheter Insertion date: 06/09/18 Insertion time: 13:59 Removal date: 06/09/18 Removal time: 14:57 Results - Labs CBC & Chem 7: 06/09/18 05:34 06/09/18 05:39 Laboratory Results - last 24 hr 06/10/18 06/10/18 06/10/18 07:59 11:18 13:31 POC Glucose 132 H 140 H Vancomycin Trough 19.1 H Microbiology 06/02/18 18:48 Wound - Foot Acid Fast Bacilli Smear - Final No acid fast bacilli seen 06/02/18 18:48 Wound - Foot Mycobacterial Culture - Preliminary No growth in 1 week Assessment and Plan - Plan 53-year-old male admitted with acute septic shock, respiratory failure status post extubation and BKA. Patient has been receiving ICU care and stabilized for transfer to the hospitalist service. Post Respiratory failure -Extubated, breathing comfortably. -No upper airway problems. Septic shock Gangrene of the right foot -Broad-spectrum antibiotic with vancomycin and Zosyn, -Appreciate infectious disease following. Multiple blood cultures with E. coli , wound culture with E. coli, gram-negative ankur, MRSA -Status post I&D and debridement, status post BKA yesterday by Dr. Quiles -Shock resolved -Wound VAC, oer Vascular surgery wound not yet ready for closure as purulent drainage still present. Continue wound vac. Blood loss anemia -s/p 3 units of PRBC now -Monitor H&H and transfuse to keep hemoglobin above 7 Acute kidney injury -Strict I's and O's. IV fluid hydration -Monitor electrolytes and creatinine level -Creatinine has improved, urine output adequate. Stabilized Diabetes mellitus -Insulin sliding scale DVT GI prophylaxis -Teds SCDs -Heparin subcu-if okay with surgeon -Pepmarco antonio Discharge Planning: Continue IV antibiotics per infectious disease. Wound care per surgery.
--- NOTE | 2018-06-10 15:11 | P.PNPOD ---
Subjective Interval history: Left foot heel ulceration. Pt denies any n/v/f/h/c/sob. Pt states pain is controlled with medication. Physical Exam Vital signs: Vital Signs 06/09/18 15:15 06/09/18 15:30 06/09/18 15:55 Temperature 98 F Pulse Rate 86 85 86 Respiratory Rate 18 18 18 Blood Pressure 111/66 125/74 131/81 Pulse Oximetry 93 L 93 L 94 L 06/09/18 16:00 06/09/18 20:00 06/10/18 00:00 Temperature 97.9 F 95.2 F L 97.3 F L Pulse Rate 91 H 103 H 92 H Respiratory Rate 18 18 18 Blood Pressure 141/89 H 144/89 H 122/83 Pulse Oximetry 96 92 L 93 L 06/10/18 04:00 06/10/18 08:00 06/10/18 12:00 Temperature 97.1 F L 98.5 F 98.4 F Pulse Rate 101 H 92 H 94 H Respiratory Rate 16 18 16 Blood Pressure 117/70 120/70 141/81 H Pulse Oximetry 90 L 94 L 94 L Intake & Output 06/09/18 06/10/18 06/10/18 18:59 06:59 18:59 Intake Total 400 / 400 220 / 220 50 / 50 Output Total 505 / 505 300 / 300 Balance -105 / -105 -80 / -80 50 / 50 Weight 97.3 kg Intake: IV 100 / 100 100 / 100 50 / 50 Zosyn 3.375 GM Premix 50 ML @ 100 / 100 100 / 100 50 / 50 100 mls/hr IV.SIG Q6H [facility] Rx#: [id number] Oral 120 / 120 Anesthesia Amount 300 / 300 Output: Urine 300 / 300 Estimated Blood Loss 5 / 5 Urine Amount (Catheter) 500 / 500 Indwelling Urethral Catheter 500 / 500 Other: Mode Setting Right Leg Continuous Continuous Sacrum Continuous Date of Last Bowel Movement 06/08/18 Narrative: Left plantar heel partial thickness ulceration 3cm x 3cm x 0cm, granular wound bed with central area of darkening, possible signs of early necrosis, no erythema, no deep probing no malodor Medications and Allergies Active Medications: Active Medications Acetaminophen (Tylenol) 650 mg PO Q4H PRN PRN Reason: Temp > 100.4 Al Hydroxide/Mg Hydroxide (Milk Of Magnesia Liq) 30 ml PO Q12H PRN PRN Reason: Mild Constipation Bisacodyl (Dulcolax Supp) 10 mg RECTAL DAILY PRN PRN Reason: SEVERE CONSITIPATION Dextrose (D50w Vial) 50 ml IV.PUSH UNSCH PRN PRN Reason: PER HYPOGLYCEMIA PROTOCOL Famotidine (Pepcid Pf Inj) 20 mg IV.PUSH Q12HR [facility] Last Admin: 06/10/18 09:58 Dose: 20 mg Glucagon (Glucagon Inj) 1 mg OTHER UNSCH PRN PRN Reason: for Hypoglycemia Protocol Heparin Sodium (Porcine) (Heparin Inj) 5,000 units SQ Q8HR [facility] Last Admin: 06/10/18 13:50 Dose: 5,000 units Piperacillin/Tazobactam/Dextrose (Zosyn 3.375 Gm Premix) 50 mls @ 100 mls/hr IV.SIG Q6H [facility] Last Infusion: 06/10/18 11:00 Dose: Infused Magnesium Sulfate 4 gm/ Sodium (Chloride) 100 mls @ 50 mls/hr IV.SIG UNSCH PRN PRN Reason: For Magnesium 0.9 - 1.1 mg/dL Magnesium Sulfate 2 gm/ Sodium (Chloride) 100 mls @ 50 mls/hr IV.SIG UNSCH PRN PRN Reason: For Magnesium 1.2 - 1.6 mg/dL Potassium Chloride (Kcl 40 Meq Premix Inj) 40 meq in 100 mls @ 50 mls/hr IV.SIG Q2H PRN PRN Reason: For Potassium 2.8 - 3.2 mEq/L Last Infusion: 06/05/18 07:18 Dose: Infused Potassium Chloride (Kcl 20 Meq Premix Inj) 20 meq in 100 mls @ 50 mls/hr IV.SIG Q2H PRN PRN Reason: For Potassium 3.3 - 3.5 mEq/L Potassium Chloride (Kcl 40 Meq Premix Inj) 40 meq in 100 mls @ 25 mls/hr IV.SIG UNSCH PRN PRN Reason: For Potassium 3.3 - 3.5 mEq/L Potassium Chloride (Kcl 20 Meq Premix Inj) 20 meq in 100 mls @ 50 mls/hr IV.SIG Q2H PRN PRN Reason: For Potassium 2.8 - 3.2 mEq/L Potassium Phosphate 30 mmol/ (Sodium Chloride) 260 mls @ 42 mls/hr IV.SIG UNSCH PRN PRN Reason: SEE LABEL COMMENTS Sodium Phosphate 30 mmol/ (Sodium Chloride) 260 mls @ 42 mls/hr IV.SIG UNSCH PRN PRN Reason: For Phosphorus < 2.5 mg/dL Vancomycin HCl 1,750 mg/ (Sodium Chloride) 517.5 mls @ 250 mls/hr IV.SIG Q48H [facility] Last Admin: 06/10/18 12:30 Dose: 250 mls/hr Insulin Aspart (Novolog Insulin Correctional Sugar Inj) 0 unit SQ [facility]; Protocol Last Admin: 06/10/18 13:31 Dose: Not Given Lactulose (Lactulose Liq) 30 ml PO DAILY PRN PRN Reason: SEVERE CONSITIPATION Magnesium Oxide (Mag-Ox) 800 mg PO UNSCH PRN PRN Reason: For Magnesium 1.2 - 1.6 mg/dL Morphine Sulfate (Morphine Inj) 3 mg IV.PUSH Q4H PRN PRN Reason: PAIN 6-10;IF UNABLE TO TAKE PO Last Admin: 06/10/18 13:48 Dose: 3 mg Ondansetron HCl (Zofran Inj) 4 mg IV.PUSH Q6H PRN PRN Reason: NAUSEA OR VOMITING Pharmacy Profile Note (Vancomycin Consult Pharmacy) 1 each OTHER UNSCH PRN PRN Reason: Pharmacy to dose Potassium Bicarb/Potassium Chloride (K-Lyte Cl Eff) 50 meq PO UNSCH PRN PRN Reason: For Potassium 3.3 - 3.5 mEq/L Potassium Phosphate (K-Phos Original) 2,000 mg PO Q4H PRN PRN Reason: Phosphorus Less Than 2.5 mg/dL Potassium Phosphate (K-Phos Original) 2,000 mg PO UNSCH PRN PRN Reason: SEE LABEL COMMENTS Senna/Docusate Sodium (Bee-Colace) 1 tab PO BID [facility] Last Admin: 06/10/18 09:59 Dose: Not Given Sennosides (Senokot) 17.2 mg PO Q12H PRN PRN Reason: Moderate Constipation Sodium Chloride (Ns Flush) 2 ml IV.FLUSH UNSCH PRN PRN Reason: FLUSH AFTER USING IV ACCESS Terbutaline Sulfate (Brethine Inj) 1 mg SQ UNSCH PRN PRN Reason: For Extravasation Vancomycin HCl (Vancomycin Po) 250 mg PO QID [facility] Last Admin: 06/10/18 13:29 Dose: 250 mg Allergies Allergy/AdvReac Type Severity Reaction Status Date / Time No Known Allergies Allergy Unverified 06/02/18 15:19 Home Medications Medication Instructions Recorded Confirmed Type aspirin 81 mg PO DAILY 06/02/18 06/02/18 History atorvastatin [Lipitor] 40 mg PO DAILY 06/02/18 06/02/18 History bumetanide 2 mg PO DAILY 06/02/18 06/02/18 History carvedilol [Coreg] 25 mg PO BID 06/02/18 06/02/18 History chlorthalidone 25 mg PO DAILY 06/02/18 06/02/18 History folic acid 1 mg PO DAILY 06/02/18 06/02/18 History lisinopril 5 mg PO DAILY 06/02/18 06/02/18 History Results - Labs CBC & Chem 7: 06/09/18 05:34 06/09/18 05:39 Laboratory Results - last 24 hr 06/10/18 06/10/18 06/10/18 07:59 11:18 13:31 POC Glucose 132 H 140 H Vancomycin Trough 19.1 H Microbiology 06/02/18 18:48 Wound - Foot Acid Fast Bacilli Smear - Final No acid fast bacilli seen 06/02/18 18:48 Wound - Foot Mycobacterial Culture - Preliminary No growth in 1 week Assessment and Plan - Assessment (1) Gangrene Code(s): I96 - Gangrene, not elsewhere classified Status: Acute (2) Gas gangrene of foot Code(s): A48.0 - Gas gangrene Status: Acute (3) Sepsis Code(s): A41.9 - Sepsis, unspecified organism Status: Acute - Plan -Forefoot WBing only for transfers otherwise NWBing LLE -Daily wound care orders placed for nursing -Cont using offloading boot -Will monitor while in house (3) Sepsis Qualifiers: Sepsis type: sepsis due to unspecified organism Qualified Code(s): A41.9 - Sepsis, unspecified organism
--- NOTE | 2018-06-10 20:59 | P.PNVS ---
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 Wound VAC in place It should be noted that the time of surgery patient had purulent drainage from the proximal portion of the amputation so will take a few days before patient is ready for any further surgery In the best case scenario will undergo washout of the stump and closure on Thursday but depending on what it looks like I may delay the final closure for another few days after that In the meantime patient can be safely extubated and transferred to floor when stable 06/05/2018 Patient status post guillotine amputation of the right foot Considering the amount of infection gas gangrene and purulent drainage wound VAC will remain on for next few days Will likely washout the change wound VAC on Thursday and then go ahead and closed the incision probably around Thursday06/06/2018 Considering the amount of purulent drainage and degree of infection and gas gangrene I believe it is probably leonrad to postpone final closure until at least Thursday Patient should have a washout of the stump at the bedside the new wound VAC placement tomorrow 06/07/2018 Wound VAC changed today Amputation site appears to be much telephone cleaner Will likely closed the incision on Thursday Nothing to add at this time 06/08/2018 Patient had not had a change of wound VAC yet Wound care has been consulted but I do not know why the wound VAC was not changed Will now postpone final surgery until but wound VAC has to be changed and wound washed out today For closure of the BKA stump on Thursday06/10/2018 Patient will have serial wound vacs changed as ordered and by next the drainage and everything should be resolved to the point that patient can have closure of the BKA stump This is a unusually heavily infected purulent tissue of the calf and I do not want to close this before I am sure that is going to heal nicely and not result in a new abscess Objective Vital Signs / I&O: Vital Signs 06/10/18 00:00 06/10/18 04:00 06/10/18 08:00 Temperature 97.3 F L 97.1 F L 98.5 F Pulse Rate 92 H 101 H 92 H Respiratory Rate 18 16 18 Blood Pressure 122/83 117/70 120/70 Pulse Oximetry 93 L 90 L 94 L 06/10/18 12:00 06/10/18 16:00 Temperature 98.4 F 97.8 F Pulse Rate 94 H 97 H Respiratory Rate 16 16 Blood Pressure 141/81 H 140/87 Pulse Oximetry 94 L 94 L Intake & Output 06/10/18 06/10/18 06/11/18 06:59 18:59 06:59 Intake Total 220 / 220 1457.5 / 1457.5 Output Total 300 / 300 Balance -80 / -80 1457.5 / 1457.5 Weight 97.3 kg Intake: IV 100 / 100 617.5 / 617.5 Zosyn 3.375 GM Premix 50 ML @ 100 / 100 100 / 100 100 mls/hr IV.SIG Q6H [facility] Rx#: [id number] Vancomycin Inj 1,750 MG In NS 517.5 / 517.5 Inj 500 ML @ 250 mls/hr IV.SIG Q48H [facility] Rx#:[id number] Oral 120 / 120 840 / 840 Output: Urine 300 / 300 Other: Mode Setting Right Leg Continuous Continuous # Voids 4 Date of Last Bowel Movement 06/09/18 Laboratory Results - last 24 hr 06/10/18 06/10/18 06/10/18 07:59 11:18 13:31 POC Glucose 132 H 140 H Vancomycin Trough 19.1 H 06/10/18 16:44 POC Glucose 151 H Vancomycin Trough
--- NOTE | 2018-06-10 22:53 | ECG ---
Date Performed: 06/09/2018 Time Performed: 08:23:58 PTAGE: 53 years EKG: Sinus rhythm Poor R wave progression - probable normal variant Lateral T wave changes are nonspecific Low QRS vol tages in limb leads Borderline ECG Since the PREVIOUS TRACING , no significant change noted DOCTOR: Radha Harrell Interpretating Date/Time 06/10/2018 22:52:36
[2018-06-11] MEDS: Piperacil/Tazo 3.375 GM Premix 50 ML IV.SIG SCH ×4 (04:21→21:04)
[2018-06-11] MEDS: Heparin - SQ 10,000 UNITS/ML Vial SQ SCH ×3 (06:00→21:12)
[2018-06-11] MEDS: Insulin NovoLOG Aspart Correctional Sugar Inj SQ SCH ×4 (09:33→21:03)
[2018-06-11] MEDS: Senna/Docusate Sodium 8.6/50 MG Tablet PO SCH ×2 (09:41→21:13)
[2018-06-11] MEDS: Famotidine PF Inj 20 MG/2 ML Vial IV.PUSH SCH ×2 (11:18→21:10)
--- NOTE | 2018-06-11 12:06 | P.PNWCN ---
Wound Care Nurse Consult Description: Patient seen for wound VAC dressing change to R BKA. Communicated with: ARGENIS hall Recommendation: Please reinforce as needed with VAC drape if leaking. Wound/Pressure Injury - Wound R BKA stump Wound Assessment: Ongoing Wound Type: Traumatic Amputation Is This a Chronic Wound: No Length: 9.2 (~9.2 cm) Width: 8 (~8 cm) Depth: 1 (~1 cm) Wound Bed Appearance: [place], Red, White Wound Bed Appearance: Wound presents with ~30% exposed bone, ~10% facia, ~40% muscle, and ~20% red granulation tissue. Surrounding Tissue Appearance: [place] Surrounding Tissue Temperature: Cool Drainage Description: Serosanguinous Drainage Amount: Minimal Drainage Odor: No Odor Dressing Status: Changed Cleansing Solution: Saline Wound Packing Type: Woundvac Sponge (oil emulsion gauze over bone) Primary Dressing: Negative Pressure Wound Dressing Cover Dressing: Gauze Roll/Wrap (rolled gauze, Mitch wrap and tape) Tape Type: Paper Wound Dressing Change Date: 06/11/18 Wound Vac - Wound Vac R BKA stump Pressure Setting (mmHg): 125 Mode Setting: Continuous (low) Drainage Description: Serosanguinous Foam type: Black - Additional Information Patient seen for wound VAC dressing change. Wound measurements and descriptions noted above. Patient tolerated dressing change fairly, with complaints of pain during dressing removal and cleaning.
[2018-06-11] MEDS: Morphine Inj 4 MG/ML Vial IV.PUSH PRN ×2 (12:36→18:24)
--- NOTE | 2018-06-11 15:21 | P.PNIM ---
Subjective Interval history: Patient reports he is feeling okay today. Discussed with foreign law consultant. Wound appeared to be improving. Physical Exam Vital signs: Vital Signs 06/10/18 16:00 06/10/18 20:00 06/11/18 00:00 Temperature 97.8 F 98.1 F 98.2 F Pulse Rate 97 H 91 H 90 Respiratory Rate 16 18 18 Blood Pressure 140/87 131/83 131/83 Pulse Oximetry 94 L 94 L 94 L 06/11/18 04:00 06/11/18 08:00 06/11/18 12:00 Temperature 97.8 F 97.6 F 97.5 F L Pulse Rate 90 93 H 94 H Respiratory Rate 18 16 16 Blood Pressure 131/85 129/72 143/78 H Pulse Oximetry 94 L 90 L 94 L Intake & Output 06/10/18 06/11/18 06/11/18 18:59 06:59 18:59 Intake Total 1457.5 / 1457.5 100 / 100 50 / 50 Output Total 600 / 600 Balance 1457.5 / 1457.5 -500 / -500 50 / 50 Weight 98 kg Intake: IV 617.5 / 617.5 100 / 100 50 / 50 Zosyn 3.375 GM Premix 50 ML @ 100 / 100 100 / 100 50 / 50 100 mls/hr IV.SIG Q6H [facility] Rx#: [id number] Vancomycin Inj 1,750 MG In NS 517.5 / 517.5 Inj 500 ML @ 250 mls/hr IV.SIG Q48H [facility] Rx#:[id number] Oral 840 / 840 Output: Urine 600 / 600 Other: Mode Setting R BKA stump Continuous Right Leg Continuous Continuous # Voids 4 Date of Last Bowel Movement 06/09/18 Narrative: GENERAL: This is a well-nourished, well-developed patient, in no apparent distress. CARDIOVASCULAR: Normal rate and regular rhythm without murmurs, gallops, or rubs. RESPIRATORY: Good respiratory efforts. Breath sounds equal and clear to auscultation bilaterally. GASTROINTESTINAL: Abdomen soft, non-tender, non-distended. Normal active bowel sounds MUSCULOSKELETAL: Status post right BKA. Wound VAC in place. NEURO: Alert & Oriented x4 to person, place, time, situation. Moves all ext x4 PSYCH: Appropriate mood and affect. - Urinary Catheter Management Indwelling Urethral Catheter Cath placed during this visit: yes, but has since been removed by the nurse Reason for continuing: Decision to DC catheter Insertion date: 06/09/18 Insertion time: 13:59 Removal date: 06/09/18 Removal time: 14:57 Results - Labs CBC & Chem 7: 06/09/18 05:34 06/09/18 05:39 Laboratory Results - last 24 hr 06/10/18 06/10/18 06/11/18 16:44 20:54 07:55 POC Glucose 151 H 160 H 149 H 06/11/18 13:03 POC Glucose 155 H Assessment and Plan - Plan 53-year-old male admitted with acute septic shock, respiratory failure status post extubation and BKA. Patient has been receiving ICU care and stabilized for transfer to the hospitalist service. Post Respiratory failure -Extubated, breathing comfortably. -No upper airway problems. Septic shock Gangrene of the right foot -Broad-spectrum antibiotic with vancomycin and Zosyn, -Appreciate infectious disease following. Multiple blood cultures with E. coli , wound culture with E. coli, gram-negative ankur, MRSA -Status post I&D and debridement, status post BKA yesterday by Dr. Quiles -Shock resolved -Wound VAC, vascular surgery planning to close the wound next . Recommendations to continue serial wound VAC changes. Blood loss anemia -s/p 3 units of PRBC now -Monitor H&H and transfuse to keep hemoglobin above 7 Acute kidney injury -Strict I's and O's. IV fluid hydration -Monitor electrolytes and creatinine level -Creatinine has improved, urine output adequate. Stabilized Diabetes mellitus -Insulin sliding scale DVT GI prophylaxis -Teds SCDs -Heparin subcu-when okay with surgeon -Luke Discharge Planning: Continue IV antibiotics per infectious disease. Wound care per surgery.
--- NOTE | 2018-06-11 15:55 | P.PNVS ---
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 Wound VAC in place It should be noted that the time of surgery patient had purulent drainage from the proximal portion of the amputation so will take a few days before patient is ready for any further surgery In the best case scenario will undergo washout of the stump and closure on Thursday but depending on what it looks like I may delay the final closure for another few days after that In the meantime patient can be safely extubated and transferred to floor when stable 06/05/2018 Patient status post guillotine amputation of the right foot Considering the amount of infection gas gangrene and purulent drainage wound VAC will remain on for next few days Will likely washout the change wound VAC on Thursday and then go ahead and closed the incision probably around Thursday06/06/2018 Considering the amount of purulent drainage and degree of infection and gas gangrene I believe it is probably leonard to postpone final closure until at least Thursday Patient should have a washout of the stump at the bedside the new wound VAC placement tomorrow 06/07/2018 Wound VAC changed today Amputation site appears to be much shrimp cleaner Will likely closed the incision on Thursday Nothing to add at this time 06/08/2018 Patient had not had a change of wound VAC yet Wound care has been consulted but I do not know why the wound VAC was not changed Will now postpone final surgery until but wound VAC has to be changed and wound washed out today For closure of the BKA stump on Thursday06/10/2018 Patient will have serial wound vacs changed as ordered and by next the drainage and everything should be resolved to the point that patient can have closure of the BKA stump This is a unusually heavily infected purulent tissue of the calf and I do not want to close this before I am sure that is going to heal nicely and not result in a new abscess 06/11/2018 Patient stable Wound VAC changed and grateful to wound care team doing such excellent job Will likely take patient to the operating room or Thursday for hopefully a second stage procedure and closure Objective Vital Signs / I&O: Vital Signs 06/10/18 16:00 06/10/18 20:00 06/11/18 00:00 Temperature 97.8 F 98.1 F 98.2 F Pulse Rate 97 H 91 H 90 Respiratory Rate 16 18 18 Blood Pressure 140/87 131/83 131/83 Pulse Oximetry 94 L 94 L 94 L 06/11/18 04:00 06/11/18 08:00 06/11/18 12:00 Temperature 97.8 F 97.6 F 97.5 F L Pulse Rate 90 93 H 94 H Respiratory Rate 18 16 16 Blood Pressure 131/85 129/72 143/78 H Pulse Oximetry 94 L 90 L 94 L Intake & Output 06/10/18 06/11/18 06/11/18 18:59 06:59 18:59 Intake Total 1457.5 / 1457.5 100 / 100 50 / 50 Output Total 600 / 600 Balance 1457.5 / 1457.5 -500 / -500 50 / 50 Weight 98 kg Intake: IV 617.5 / 617.5 100 / 100 50 / 50 Zosyn 3.375 GM Premix 50 ML @ 100 / 100 100 / 100 50 / 50 100 mls/hr IV.SIG Q6H [facility] Rx#: [id number] Vancomycin Inj 1,750 MG In NS 517.5 / 517.5 Inj 500 ML @ 250 mls/hr IV.SIG Q48H [facility] Rx#:[id number] Oral 840 / 840 Output: Urine 600 / 600 Other: Mode Setting R BKA stump Continuous Right Leg Continuous Continuous # Voids 4 Date of Last Bowel Movement 06/09/18 Laboratory Results - last 24 hr 06/10/18 06/10/18 06/11/18 16:44 20:54 07:55 POC Glucose 151 H 160 H 149 H 06/11/18 13:03 POC Glucose 155 H
--- NOTE | 2018-06-11 19:33 | P.PNID ---
Subjective Remarks: ID Coverage C Diff (+) no fever cont to have liquid diarrhea, 1 BM today afebrile, WBC @ 13 K Antibiotics: vanco IV zosyn Vanco po Past Medical History: Congestive heart failure Type 2 diabetes mellitus Cholecystectomy Allergies/Adverse Reactions: Allergies No Known Allergies Allergy (Unverified 06/02/18 15:19) Objective Vital Signs 06/10/18 20:00 06/11/18 00:00 06/11/18 04:00 Temperature 98.1 F 98.2 F 97.8 F Pulse Rate 91 H 90 90 Respiratory Rate 18 18 18 Blood Pressure 131/83 131/83 131/85 Pulse Oximetry 94 L 94 L 94 L 06/11/18 08:00 06/11/18 12:00 06/11/18 16:00 Temperature 97.6 F 97.5 F L 97.7 F Pulse Rate 93 H 96 H 92 H Respiratory Rate 16 16 16 Blood Pressure 129/72 143/78 H 136/85 Pulse Oximetry 90 L 94 L 94 L Intake & Output 06/11/18 06/11/18 06/12/18 06:59 18:59 06:59 Intake Total 100 / 100 580 / 580 Output Total 600 / 600 Balance -500 / -500 580 / 580 Weight 98 kg Intake: IV 100 / 100 100 / 100 Zosyn 3.375 GM Premix 50 ML @ 100 / 100 100 / 100 100 mls/hr IV.SIG Q6H [facility] Rx#: [id number] Oral 480 / 480 Output: Urine 600 / 600 Other: Mode Setting R BKA stump Continuous Right Leg Continuous Continuous # Voids 2 Date of Last Bowel Movement 06/11/18 # Bowel Movements 1 06/02/18 18:48 Wound - Foot Acid Fast Bacilli Smear - Final No acid fast bacilli seen 06/02/18 18:48 Wound - Foot Mycobacterial Culture - Preliminary No growth in 1 week Lab - Chemistry Results 06/10/18 06/10/18 06/10/18 07:59 13:31 16:44 POC Glucose 132 H 140 H 151 H 06/10/18 06/11/18 06/11/18 20:54 07:55 13:03 POC Glucose 160 H 149 H 155 H Imaging: ITS Impressions Venous Doppler Study 06/02/18 15:46 CONCLUSION: 1. No sonographic evidence of lower extremity DVT. 2. Bilateral lower extremity subcutaneous edema. 3. Multiple lymph nodes seen in both groins, some of which are abnormally enlarged. Recommend clinical correlation. Foot X-Ray 06/02/18 15:52 CONCLUSION: Extensive subcutaneous air. No bone fracture or dislocation Chest X-Ray 06/05/18 06:00 CONCLUSION: Interim extubation and nasogastric tube removal. No significant change right greater the left pleural effusions and basilar consolidation. Physical Exam: GENERAL: , NAD SKIN: Warm and dry. No rash HEAD: Atraumatic. Normocephalic. EYES: Pupils equal and round. No scleral icterus. No injection or drainage. ENT: No nasal bleeding or discharge. Mucous membranes pink and moist. NECK: Trachea midline. No JVD. CARDIOVASCULAR: Regular rate and rhythm. RESPIRATORY: No accessory muscle use. Clear to auscultation. Breath sounds equal bilaterally. GASTROINTESTINAL: Abdomen soft, non-tender, mildly distended. Hepatic and splenic margins not palpable. MUSCULOSKELETAL: Extremities without clubbing, cyanosis, + prominent soft pitting edema. VAC in place with serosang dc NEUROLOGICAL: Non-focal PSYCHIATRIC: calm, cooperative Assessment and Plan - Plan Impression Sepsis, E coli - better Gas gangrene RLE, S/P guillotine amputation RBKA, C/S polymicrobial life treatening severe R foot DFI Gas gangrene R foot, polimicrobial mixed aerobic/anaerobic infx, including MRSA Acutre VDRF- resolved ARF - resolved C difficile colitis Recommendation Continue zosyn Continue vancomycin for MRSA co-infx Stop dates for systemic abx after definitive surgical treatment: Continue po Vancomycin for C diff; anticipate 2 weeks if resolves by then
[2018-06-12] MEDS: Morphine Inj 4 MG/ML Vial IV.PUSH PRN ×5 (01:44→23:50)
[2018-06-12] MEDS: Piperacil/Tazo 3.375 GM Premix 50 ML IV.SIG SCH ×5 (03:15→21:15)
[2018-06-12] MEDS: Heparin - SQ 10,000 UNITS/ML Vial SQ SCH ×3 (05:49→21:15)
[2018-06-12] MEDS: Insulin NovoLOG Aspart Correctional Sugar Inj SQ SCH ×4 (10:03→20:53)
[2018-06-12] MEDS: Senna/Docusate Sodium 8.6/50 MG Tablet PO SCH ×2 (10:13→20:53)
[2018-06-12] MEDS: Famotidine PF Inj 20 MG/2 ML Vial IV.PUSH SCH ×2 (10:14→21:14)
[2018-06-12] MEDS ORDERED: [UNRECOGNIZED DRUG - REMARK] OTHER ONE (10:45)
[2018-06-12] MEDS: Vancomycin Inj 1,500 MG in Sodium Chlor 0.9% Inj 500 ML IV.SIG SCH (13:12)
--- NOTE | 2018-06-12 13:30 | P.PNIM ---
Subjective Interval history: Patient reports he is feeling okay today. No new issues. Physical Exam Vital signs: Vital Signs 06/11/18 16:00 06/11/18 20:00 06/12/18 00:00 Temperature 97.7 F 97.5 F L 97.4 F L Pulse Rate 92 H 90 89 Respiratory Rate 16 18 18 Blood Pressure 136/85 140/91 H 131/83 Pulse Oximetry 94 L 93 L 97 06/12/18 04:00 06/12/18 05:51 06/12/18 08:00 Temperature 97.9 F 97.9 F Pulse Rate 91 H 95 H Respiratory Rate 18 18 18 Blood Pressure 130/82 144/88 H Pulse Oximetry 89 L 92 L Intake & Output 06/11/18 06/12/18 06/12/18 18:59 06:59 18:59 Intake Total 580 / 580 100 / 100 50 / 50 Output Total 500 / 500 Balance 580 / 580 -400 / -400 50 / 50 Weight 95.3 kg Intake: IV 100 / 100 100 / 100 50 / 50 Zosyn 3.375 GM Premix 50 ML @ 100 / 100 100 / 100 50 / 50 100 mls/hr IV.SIG Q6H [facility] Rx#: [id number] Oral 480 / 480 Output: Urine 500 / 500 Other: Mode Setting R BKA stump Continuous Continuous Continuous Right Leg Continuous Continuous # Voids 2 Date of Last Bowel Movement 06/11/18 06/11/18 06/11/18 # Bowel Movements 1 Narrative: GENERAL: This is a well-nourished, well-developed patient, in no apparent distress. CARDIOVASCULAR: Normal rate and regular rhythm without murmurs, gallops, or rubs. RESPIRATORY: Good respiratory efforts. Breath sounds equal and clear to auscultation bilaterally. GASTROINTESTINAL: Abdomen soft, non-tender, non-distended. Normal active bowel sounds MUSCULOSKELETAL: Status post right BKA. Wound VAC in place. NEURO: Alert & Oriented x4 to person, place, time, situation. Moves all ext x4 PSYCH: Appropriate mood and affect. - Urinary Catheter Management Indwelling Urethral Catheter Cath placed during this visit: yes, but has since been removed by the nurse Reason for continuing: Decision to DC catheter Insertion date: 06/09/18 Insertion time: 13:59 Removal date: 06/09/18 Removal time: 14:57 Results - Labs CBC & Chem 7: 09/26/18 05:34 06/12/18 05:40 Laboratory Results - last 24 hr 06/09/18 06/11/18 06/12/18 01:46 20:11 05:40 Creatinine 1.22 Estimated GFR 62 L POC Glucose 110 Vancomycin Trough MTS Gel Crossmatch See Detail 06/12/18 06/12/18 08:05 12:20 Creatinine Estimated GFR POC Glucose 93 Vancomycin Trough 18.0 H MTS Gel Crossmatch Assessment and Plan - Plan 53-year-old male admitted with acute septic shock, respiratory failure status post extubation and BKA. Patient has been receiving ICU care and stabilized for transfer to the hospitalist service in the medical surgical floor. Post Respiratory failure -Extubated, breathing comfortably. -No upper airway problems. Septic shock Gangrene of the right foot -Broad-spectrum antibiotic with vancomycin and Zosyn, -Appreciate infectious disease following. Multiple blood cultures with E. coli , wound culture with E. coli, gram-negative ankur, MRSA -Status post I&D and debridement, status post BKA yesterday by Dr. Quiles -Shock resolved -Wound VAC, vascular surgery planning to close the wound next . Recommendations to continue serial wound VAC changes. -Change pain medication to [place]. Keep morphine IV as needed for breakthrough pain. Blood loss anemia -s/p 3 units of PRBC now -Monitor H&H and transfuse to keep hemoglobin above 7 Acute kidney injury -Strict I's and O's. IV fluid hydration -Monitor electrolytes and creatinine level -Creatinine has improved, urine output adequate. Stabilized Diabetes mellitus -Insulin sliding scale DVT GI prophylaxis -Teds SCDs -Heparin subcu-when okay with surgeon -Pepcid Discharge Planning: Continue IV antibiotics per infectious disease. Wound care per surgery.
[2018-06-13] MEDS: Piperacil/Tazo 3.375 GM Premix 50 ML IV.SIG SCH ×4 (03:15→20:29)
[2018-06-13] MEDS: Heparin - SQ 10,000 UNITS/ML Vial SQ SCH ×3 (05:09→21:03)
[2018-06-13] MEDS: Morphine Inj 4 MG/ML Vial IV.PUSH PRN ×3 (05:09→20:28)
[2018-06-13] MEDS: Insulin NovoLOG Aspart Correctional Sugar Inj SQ SCH ×4 (08:29→20:29)
[2018-06-13] MEDS: Senna/Docusate Sodium 8.6/50 MG Tablet PO SCH ×2 (08:33→20:29)
[2018-06-13] MEDS: Famotidine PF Inj 20 MG/2 ML Vial IV.PUSH SCH ×2 (08:34→20:28)
--- NOTE | 2018-06-13 14:02 | P.PNIM ---
Subjective Interval history: Patient reports he is feeling ok. No new issues. Physical Exam Vital signs: Vital Signs 06/12/18 14:25 06/12/18 16:00 06/12/18 18:20 Temperature 97.5 F L Pulse Rate 92 H Respiratory Rate 18 17 18 Blood Pressure 129/80 Pulse Oximetry 91 L 06/12/18 20:00 06/13/18 00:00 06/13/18 04:00 Temperature 97.4 F L 97.7 F 97.6 F Pulse Rate 94 H 92 H 90 Respiratory Rate 19 19 17 Blood Pressure 142/93 H 133/84 147/96 H Pulse Oximetry 91 L 94 L 90 L 06/13/18 08:00 Temperature 97.3 F L Pulse Rate 93 H Respiratory Rate 16 Blood Pressure 156/98 H Pulse Oximetry 93 L Intake & Output 06/12/18 06/13/18 06/13/18 18:59 06:59 18:59 Intake Total 1855 / 1855 580 / 580 50 / 50 Output Total 1400 / 1400 400 / 400 Balance 455 / 455 180 / 180 50 / 50 Weight 98.9 kg Intake: IV 615 / 615 100 / 100 50 / 50 Zosyn 3.375 GM Premix 50 ML @ 100 / 100 100 / 100 50 / 50 100 mls/hr IV.SIG Q6H [facility] Rx#: [id number] Vancomycin Inj 1,500 MG In NS 515 / 515 Inj 500 ML @ 250 mls/hr IV.SIG Q48H [facility] Rx#:[id number] Oral 1240 / 1240 480 / 480 Output: Urine 1400 / 1400 400 / 400 Other: Mode Setting R BKA stump Continuous Continuous Continuous Date of Last Bowel Movement 06/11/18 # Bowel Movements 0 Narrative: GENERAL: This is a well-nourished, well-developed patient, in no apparent distress. CARDIOVASCULAR: Normal rate and regular rhythm without murmurs, gallops, or rubs. RESPIRATORY: Good respiratory efforts. Breath sounds equal and clear to auscultation bilaterally. GASTROINTESTINAL: Abdomen soft, non-tender, non-distended. Normal active bowel sounds MUSCULOSKELETAL: Status post right BKA. Wound VAC in place. NEURO: Alert & Oriented x4 to person, place, time, situation. Moves all ext x4 PSYCH: Appropriate mood and affect. - Urinary Catheter Management Indwelling Urethral Catheter Cath placed during this visit: yes, but has since been removed by the nurse Reason for continuing: Decision to DC catheter Insertion date: 06/09/18 Insertion time: 13:59 Removal date: 06/09/18 Removal time: 14:57 Results - Labs CBC & Chem 7: 06/09/18 05:34 06/13/18 03:46 Laboratory Results - last 24 hr 06/12/18 06/13/18 06/13/18 16:59 03:46 07:41 Creatinine 1.19 Estimated GFR 64 L POC Glucose 103 84 Assessment and Plan - Plan 53-year-old male admitted with acute septic shock, respiratory failure status post extubation and BKA. Patient has been receiving ICU care and stabilized for transfer to the hospitalist service in the medical surgical floor. Post Respiratory failure -Extubated, breathing comfortably. -No upper airway problems. Septic shock Gangrene of the right foot -Broad-spectrum antibiotic with vancomycin and Zosyn, -Appreciate infectious disease following. Multiple blood cultures with E. coli , wound culture with E. coli, gram-negative ankur, MRSA -Status post I&D and debridement, status post BKA yesterday by Dr. Quiles -Shock resolved -Wound VAC, vascular surgery planning to close the wound next . Recommendations to continue serial wound VAC changes. -Continue [place]. Keep morphine IV as needed for breakthrough pain. Blood loss anemia -s/p 3 units of PRBC now -Monitor H&H and transfuse to keep hemoglobin above 7 Acute kidney injury -Strict I's and O's. IV fluid hydration -Monitor electrolytes and creatinine level -Creatinine has improved, urine output adequate. Stabilized Diabetes mellitus -Insulin sliding scale DVT GI prophylaxis -Teds SCDs -Heparin subcu-when okay with surgeon -[place] Discharge Planning: Continue IV antibiotics per infectious disease. Wound care per surgery.
[2018-06-14] MEDS: Piperacil/Tazo 3.375 GM Premix 50 ML IV.SIG SCH ×4 (02:00→22:29)
[2018-06-14] MEDS: Heparin - SQ 10,000 UNITS/ML Vial SQ SCH ×3 (05:13→22:29)
[2018-06-14] MEDS: Morphine Inj 4 MG/ML Vial IV.PUSH PRN ×4 (05:14→19:59)
[2018-06-14] MEDS: Insulin NovoLOG Aspart Correctional Sugar Inj SQ SCH ×4 (07:59→22:27)
[2018-06-14] MEDS: Famotidine PF Inj 20 MG/2 ML Vial IV.PUSH SCH ×2 (08:10→22:28)
[2018-06-14] MEDS: Senna/Docusate Sodium 8.6/50 MG Tablet PO SCH ×2 (08:13→22:28)
--- NOTE | 2018-06-14 09:34 | P.PNIM ---
Subjective Interval history: Follow-up right BKA and leg pain. Patient laying in bed complaining of pain on the right leg at 7 out of 10, has been taking pain medications but only relieved when taking morphine for breakthrough pain. Stated pain stated pain is constant on the surgical stump however relieved with morphine. Also reported with one loose stool today however no stools for 2 days. Denies any nausea or vomiting. Complains of some shortness of breath with exertion. Patient mentioned mentioned about his congestive heart failure and have some edema this has been going on for months, with scrotal edema. States that this is better than on admission. Patient denies any headache or dizziness, denies any chest pain. Denies any fever or chills Physical Exam Vital signs: Vital Signs 06/13/18 12:00 06/13/18 16:00 06/13/18 20:00 Temperature 97.3 F L 97.2 F L 97.4 F L Pulse Rate 92 H 93 H 98 H Respiratory Rate 20 18 18 Blood Pressure 148/92 H 145/93 H 136/92 H Pulse Oximetry 93 L 92 L 94 L 06/14/18 00:00 06/14/18 04:00 06/14/18 08:00 Temperature 97.4 F L 97.6 F 97.1 F L Pulse Rate 88 89 91 H Respiratory Rate 19 19 18 Blood Pressure 130/84 119/76 127/78 Pulse Oximetry 93 L 91 L 90 L Intake & Output 06/13/18 06/14/18 06/14/18 18:59 06:59 18:59 Intake Total 100 / 100 100 / 100 Output Total 300 / 300 Balance 100 / 100 -200 / -200 Intake: IV 100 / 100 100 / 100 Zosyn 3.375 GM Premix 50 ML @ 100 / 100 100 / 100 100 mls/hr IV.SIG Q6H [facility] Rx#: [id number] Output: Urine 300 / 300 Other: Mode Setting R BKA stump Continuous # Incontinent Bowel Movements 1 Narrative: GENERAL: Well-developed, well-nourished, alert and oriented x3, with no apparent distress SKIN: Warm and dry. Right below the knee stump dressed dry and intact HEAD: Atraumatic. Normocephalic. EYES: Pupils equal and round. No scleral icterus. No injection or drainage. ENT: No nasal bleeding or discharge. Mucous membranes pink and moist. NECK: Trachea midline. No JVD. CARDIOVASCULAR: Regular rate and rhythm. Bilateral lower extremity edema 1 + pitting, scrotal edema. RESPIRATORY: No accessory muscle use. Clear to auscultation. Breath sounds equal bilaterally. GASTROINTESTINAL: Abdomen soft, non-tender, nondistended. Hepatic and splenic margins not palpable. MUSCULOSKELETAL: Extremities without clubbing, cyanosis, or edema. No obvious deformities. right LE BKA stump dressed, dry and intact NEUROLOGICAL: Awake and alert. No obvious cranial nerve deficits. Motor grossly within normal limits. Generalized weakness, moves all 4 extremities. Normal speech. PSYCHIATRIC: Appropriate mood and affect; insight and judgment normal. - Urinary Catheter Management Indwelling Urethral Catheter Cath placed during this visit: yes, but has since been removed by the nurse Reason for continuing: Decision to DC catheter Insertion date: 06/09/18 Insertion time: 13:59 Removal date: 06/09/18 Removal time: 14:57 Results - Labs CBC & Chem 7: 06/09/18 05:34 06/14/18 05:35 Laboratory Results - last 24 hr 06/14/18 05:35 Creatinine 1.42 H Estimated GFR 52 L Assessment and Plan - Plan 53-year-old male admitted with acute septic shock, respiratory failure status post extubation and BKA. Patient has been receiving ICU care and stabilized for transfer to the hospitalist service in the medical surgical floor. Septic shock Gangrene of the right foot s/p right BKA -Broad-spectrum antibiotic with vancomycin and Zosyn, -ID Consulted, Multiple blood cultures with E. coli, wound culture with E. coli , gram-negative ankur, MRSA -Status post I&D and debridement, status post BKA by Dr. Quiles -Septic Shock resolved -Wound VAC, vascular surgery planning to close the wound next . Recommendations to continue serial wound VAC changes. -Continue [place]. Keep morphine IV as needed for breakthrough pain. Post Respiratory failure -Extubated, breathing comfortably i n room air -No sob, no upper airway problems. Blood loss anemia -s/p 3 units of PRBC -Monitor H&H and transfuse to keep hemoglobin above 7 Acute kidney injury Recent Renal Pathology at [facility]: Impression: diffuse and nodular diabetic glomerulosclerosis, moderately advanced and moderate arteriosclerosis and hyalinosis arteriosclerosis -Strict I's and O's. IV fluid hydration -Monitor electrolytes and creatinine level -Creatinine has improved, urine output adequate. Stabilized Diabetes mellitus Type 2 -blood sugar fair controlled-diabetic diet -Insulin sliding scale DVT/GI prophylaxis: -Teds SCDs -Heparin subcu -Pepcid Code Status: full Discussed Condition With: patient and nurse
[2018-06-14] MEDS: Vancomycin Inj 1,500 MG in Sodium Chlor 0.9% Inj 500 ML IV.SIG SCH (11:45)
--- NOTE | 2018-06-14 15:29 | P.PNWCN ---
Wound Care Nurse Consult Description: Patient seen for wound VAC dressing change to R BKA. Communicated with: Dorothy Miller [address] Recommendation: Please reinforce as needed with VAC drape if leaking. Wound Vac - Wound Vac R BKA stump Pressure Setting (mmHg): 125 (low) Mode Setting: Continuous Drainage Description: Serosanguinous Foam type: Black - Additional Information Patient seen for wound VAC dressing change. Dressing was changed. Patient tolerated dressing change fairly, with complaints of pain during dressing removal and cleaning. Incision - Patient Status Premedicated for Pain Prior to Dressing Change: Yes - Incision R BKA stump Incision Assessment: Ongoing Incision Bed Appearance: Red (~60% red muscle tissue), White (~30% exposed bone) , Yellow (~10% facia) Surrounding Tissue Appearance: [place] Surrounding Tissue Temperature: Cool Drainage Description: Serosanguinous Drainage Amount: Minimal Drainage Odor: No Odor Incision Dressing Status: Changed Incision Cleaning Solution: Saline Incision Packing Type: Woundvac Sponge Primary Dressing: Negative Pressure Wound Dressing Cover Dressing: Gauze Roll/Wrap (and elastic wrap) Incision Dressing Change Date: 06/14/18
[2018-06-15] MEDS: Morphine Inj 4 MG/ML Vial IV.PUSH PRN ×3 (00:42→12:09)
[2018-06-15] MEDS: Piperacil/Tazo 3.375 GM Premix 50 ML IV.SIG SCH ×4 (03:35→21:59)
[2018-06-15] MEDS: Heparin - SQ 10,000 UNITS/ML Vial SQ SCH ×3 (06:19→21:58)
[2018-06-15 07:23] LABS: Hematocrit 24.4 % (39.0-51.0); Hemoglobin 7.9 gm/dL (13.0-17.0); Mean Corpuscular HGB Conc 32.5 % (32.0-36.0); Mean Corpuscular Hemoglobin 27.4 pg (27.0-34.0); Mean Corpuscular Volume 84.4 fL (80.0-100.0); Mean Platelet Volume 6.7 fL (7.0-11.0); Platelet Count 341 th/mm3 (150-450); Red Blood Count 2.89 mil/mm3 (4.50-5.90); Red Cell Distribution Width 18.2 % (11.6-17.2); White Blood Count 12.2 th/mm3 (4.0-11.0)
[2018-06-15 07:50] LABS: Calcium 7.6 mg/dL (8.5-10.1); Carbon Dioxide 22.3 meq/L (21.0-32.0); Potassium 3.2 meq/L (3.5-5.1)
[2018-06-15] MEDS: Famotidine PF Inj 20 MG/2 ML Vial IV.PUSH SCH ×2 (09:54→21:59)
[2018-06-15] MEDS: Senna/Docusate Sodium 8.6/50 MG Tablet PO SCH ×2 (09:55→21:43)
[2018-06-15] MEDS: Insulin NovoLOG Aspart Correctional Sugar Inj SQ SCH ×4 (09:55→21:43)
--- NOTE | 2018-06-15 16:49 | P.PNIM ---
Subjective Interval history: Follow-up right BKA, generalized edema, AKA, anemia. Patient laying in bed did not address concern about edema which is generalized started on February 2018 stated had a biopsy of his kidney in March in [facility], with the core stacker Dr. Jensen. However patient did not follow-up with a core stacker stated due to money stated that he lost his job and was not able to follow-up. Patient stated he was hospitalized again for the same problem with generalized edema and scrotal edema in March 2018 and was discharged with 2 weeks of medication however stated he ran out of medication. Patient stated he was not able to purchase his own medication and that exacerbate his symptoms, making lost his leg. Patient complains of pain on the right leg that is relieved with pain medication. Worse with movement, better with rest. Patient denies any headache or dizziness, denies any chest pain or shortness of breath, denies nausea or vomiting. Patient denies any fever or chills. Physical Exam Vital signs: Vital Signs 06/14/18 20:00 06/14/18 20:03 06/14/18 22:27 Temperature 97.5 F L Pulse Rate 85 85 Respiratory Rate 18 18 Blood Pressure 132/88 Pulse Oximetry 96 06/15/18 00:00 06/15/18 00:40 06/15/18 00:51 Temperature 97.6 F Pulse Rate 85 87 Respiratory Rate 18 18 Blood Pressure 131/83 Pulse Oximetry 95 06/15/18 04:00 06/15/18 08:00 06/15/18 12:00 Temperature 97.5 F L 97.8 F 98.4 F Pulse Rate 84 85 88 Respiratory Rate 17 20 22 Blood Pressure 126/78 132/86 128/82 Pulse Oximetry 94 L 93 L 92 L Intake & Output 06/14/18 06/15/18 06/15/18 18:59 06:59 18:59 Intake Total 1095 / 1095 100 / 100 Output Total 200 / 200 400 / 400 Balance 895 / 895 -300 / -300 Intake: IV 615 / 615 100 / 100 Zosyn 3.375 GM Premix 50 ML @ 100 / 100 100 / 100 100 mls/hr IV.SIG Q6H [facility] Rx#: [id number] Vancomycin Inj 1,500 MG In NS 515 / 515 Inj 500 ML @ 250 mls/hr IV.SIG Q48H [facility] Rx#:[id number] Oral 480 / 480 Output: Urine 200 / 200 400 / 400 Other: Mode Setting R BKA stump Continuous Continuous Continuous Date of Last Bowel Movement 06/14/18 06/15/18 Narrative: GENERAL: Well-developed, well-nourished, alert and oriented x3, with no apparent distress SKIN: Warm and dry. Right below the knee stump dressed dry and intact with wound vac in place, left heel wound with dressing, slight drainaige noted. HEAD: Atraumatic. Normocephalic. EYES: Pupils equal and round. No scleral icterus. No injection or drainage. ENT: No nasal bleeding or discharge. Mucous membranes pink and moist. NECK: Trachea midline. No JVD. CARDIOVASCULAR: Regular rate and rhythm. Bilateral lower extremity edema 1 + pitting, scrotal edema. RESPIRATORY: No accessory muscle use. Clear to auscultation. Breath sounds equal bilaterally. GASTROINTESTINAL: Abdomen soft, non-tender, nondistended. Hepatic and splenic margins not palpable. MUSCULOSKELETAL: Extremities without clubbing, cyanosis, or edema. No obvious deformities. right LE BKA stump dressed, dry and intact NEUROLOGICAL: Awake and alert. No obvious cranial nerve deficits. Motor grossly within normal limits. Generalized weakness, moves all 4 extremities. Normal speech. PSYCHIATRIC: Appropriate mood and affect; insight and judgment normal. - Urinary Catheter Management Indwelling Urethral Catheter Cath placed during this visit: yes, but has since been removed by the nurse Reason for continuing: Decision to DC catheter Insertion date: 06/09/18 Insertion time: 13:59 Removal date: 06/09/18 Removal time: 14:57 Results - Labs CBC & Chem 7: 06/15/18 06:12 06/15/18 06:12 Laboratory Results - last 24 hr 06/14/18 06/14/18 06/15/18 18:04 20:02 06:12 WBC RBC Hgb Hct MCV MCH MCHC RDW Plt Count MPV Sodium 145 Potassium 3.2 L Chloride 114 H Carbon Dioxide 22.3 Anion Gap 9 BUN 20 H Creatinine 1.32 H Estimated GFR 57 L POC Glucose 130 H Random Glucose 76 Calcium 7.6 L B-Natriuretic Peptide 739 H 06/15/18 06/15/18 06/15/18 06:12 08:31 12:05 WBC 12.2 H RBC 2.89 L Hgb 7.9 L Hct 24.4 L MCV 84.4 MCH 27.4 MCHC 32.5 RDW 18.2 H Plt Count 341 MPV 6.7 L Sodium Potassium Chloride Carbon Dioxide Anion Gap BUN Creatinine Estimated GFR POC Glucose 74 86 Random Glucose Calcium B-Natriuretic Peptide Assessment and Plan - Plan 53-year-old male admitted with acute septic shock, respiratory failure status post extubation and BKA. Patient has been receiving ICU care and stabilized for transfer to the hospitalist service in the medical surgical floor. Septic shock s/p right BKA/Gangrene of the right foot -Broad-spectrum antibiotic with vancomycin and Zosyn, -ID Consulted, Multiple blood cultures with E. coli, wound culture with E. coli , gram-negative ankur, MRSA -Status post I&D and debridement, status post BKA by Dr. Quiles -Septic Shock resolved -Wound VAC, vascular surgery planning to close the wound next . Recommendations to continue serial wound VAC changes. -Continue [place]. Keep morphine IV as needed for breakthrough pain. Post Respiratory failure -Extubated, breathing comfortably i n room air -No sob, no upper airway problems. CHF/generalized edema generalized edema -BNP 739 -start on Lasix and KCL -monitor BMP Blood loss anemia -s/p 3 units of PRBC -Monitor H&H and transfuse to keep hemoglobin above 7 Acute kidney injury/hypokalemia/hypocalcemia Recent Renal Pathology at [facility]: Impression: diffuse and nodular diabetic glomerulosclerosis, moderately advanced and moderate arteriosclerosis and hyalinosis arteriosclerosis -Strict I's and O's. IV fluid hydration -Monitor electrolytes and creatinine level -Creatinine has improved, urine output adequate. Stabilized Diabetes mellitus Type 2 -blood sugar fair controlled-diabetic diet -Insulin sliding scale DVT:Teds SCDs, Heparin subcu GI prophylaxis:-Pepcid Code Status: full code Discussed Condition With: patient, nurse and Dr. Manzanares
--- NOTE | 2018-06-15 16:55 | P.PNID ---
Subjective Remarks: C Diff (+) no fever improved diarrhea, 1 BM today afebrile, WBC @ 12.2 K Antibiotics: vanco IV zosyn Vanco po Past Medical History: Congestive heart failure Type 2 diabetes mellitus Cholecystectomy Allergies/Adverse Reactions: Allergies No Known Allergies Allergy (Unverified 06/02/18 15:19) Objective Vital Signs 06/14/18 20:00 06/14/18 20:03 06/14/18 22:27 Temperature 97.5 F L Pulse Rate 85 85 Respiratory Rate 18 18 Blood Pressure 132/88 Pulse Oximetry 96 06/15/18 00:00 06/15/18 00:40 06/15/18 00:51 Temperature 97.6 F Pulse Rate 85 87 Respiratory Rate 18 18 Blood Pressure 131/83 Pulse Oximetry 95 06/15/18 04:00 06/15/18 08:00 06/15/18 12:00 Temperature 97.5 F L 97.8 F 98.4 F Pulse Rate 84 85 88 Respiratory Rate 17 20 22 Blood Pressure 126/78 132/86 128/82 Pulse Oximetry 94 L 93 L 92 L 06/15/18 16:00 Temperature Pulse Rate Respiratory Rate 18 Blood Pressure Pulse Oximetry Intake & Output 06/14/18 06/15/18 06/15/18 18:59 06:59 18:59 Intake Total 1095 / 1095 100 / 100 Output Total 200 / 200 400 / 400 Balance 895 / 895 -300 / -300 Intake: IV 615 / 615 100 / 100 Zosyn 3.375 GM Premix 50 ML @ 100 / 100 100 / 100 100 mls/hr IV.SIG Q6H [facility] Rx#: [id number] Vancomycin Inj 1,500 MG In NS 515 / 515 Inj 500 ML @ 250 mls/hr IV.SIG Q48H [facility] Rx#:[id number] Oral 480 / 480 Output: Urine 200 / 200 400 / 400 Other: Mode Setting R BKA stump Continuous Continuous Continuous Date of Last Bowel Movement 06/14/18 06/15/18 Lab - Hematology Results 06/15/18 06:12 WBC 12.2 H RBC 2.89 L Hgb 7.9 L Hct 24.4 L MCV 84.4 MCH 27.4 MCHC 32.5 RDW 18.2 H Plt Count 341 MPV 6.7 L Lab - Chemistry Results 06/14/18 06/14/1806/14/18 05:35 18:04 20:02 Sodium Potassium Chloride Carbon Dioxide Anion Gap BUN Creatinine 1.42 H Estimated GFR 52 L POC Glucose 130 H Random Glucose Calcium B-Natriuretic Peptide 739 H 06/15/18 06/15/18 06/15/18 06:12 08:31 12:05 Sodium 145 Potassium 3.2 L Chloride 114 H Carbon Dioxide 22.3 Anion Gap 9 BUN 20 H Creatinine 1.32 H Estimated GFR 57 L POC Glucose 74 86 Random Glucose 76 Calcium 7.6 L B-Natriuretic Peptide Imaging: ITS Impressions Venous Doppler Study 06/02/18 15:46 CONCLUSION: 1. No sonographic evidence of lower extremity DVT. 2. Bilateral lower extremity subcutaneous edema. 3. Multiple lymph nodes seen in both groins, some of which are abnormally enlarged. Recommend clinical correlation. Foot X-Ray 06/02/18 15:52 CONCLUSION: Extensive subcutaneous air. No bone fracture or dislocation Chest X-Ray 06/05/18 06:00 CONCLUSION: Interim extubation and nasogastric tube removal. No significant change right greater the left pleural effusions and basilar consolidation. Physical Exam: GENERAL: , NAD SKIN: Warm and dry. No rash HEAD: Atraumatic. Normocephalic. EYES: Pupils equal and round. No scleral icterus. No injection or drainage. ENT: No nasal bleeding or discharge. Mucous membranes pink and moist. NECK: No JVD. CARDIOVASCULAR: Regular rate and rhythm. RESPIRATORY: No accessory muscle use. Clear to auscultation. Breath sounds equal bilaterally. GASTROINTESTINAL: Abdomen soft, non-tender, mildly distended. Pitting edema on the lower abdominal wall Hepatic and splenic margins not palpable. MUSCULOSKELETAL: Extremities without clubbing, cyanosis, + prominent soft pitting edema VAC in place with serosang dc, decrased amount of output NEUROLOGICAL: Non-focal PSYCHIATRIC: calm, cooperative Assessment and Plan - Plan Impression Sepsis, E coli - better Gas gangrene RLE, S/P guillotine amputation RBKA, C/S polymicrobial life treatening severe R foot DFI Gas gangrene R foot, polimicrobial mixed aerobic/anaerobic infx, including MRSA Acutre VDRF- resolved ARF - resolved C difficile colitis: markedly improving clinically Recommendation Continue zosyn Continue vancomycin for MRSA co-infx Stop dates for systemic abx after definitive surgical treatment: planned this Continue po Vancomycin for C diff; anticipate 2 weeks if resolves by then eloisa Dexter
--- NOTE | 2018-06-15 17:15 | XR ---
EXAM DATE: 06/15/2018 12:00 AM EDT AGE/SEX: 53 years / Male INDICATIONS: Short of breath. CLINICAL DATA: This is the patient's subsequent encounter. Patient reports that signs and symptoms h ave been present for 4 - 6 days and indicates a pain score of 2/10. MEDICAL/SURGICAL HISTORY: . Congestive heart failure. Diabetes. Cholecystectomy . COMPARISON: [facility] [place] 1[place] SINGLE AP, 06/05/2018. . FINDINGS: There are bilateral pleural effusions and cardiomegaly with basilar consolidation. The left subclavia n line has been removed. I do not see a pneumothorax. CONCLUSION: Bilateral effusions and consolidation. Electronically signed by: Joel Monique MD 06/15/2018 5:13 PM EDT
[2018-06-15] MEDS: Furosemide 20 MG Tablet PO SCH (17:47)
[2018-06-16] MEDS: Piperacil/Tazo 3.375 GM Premix 50 ML IV.SIG SCH ×4 (02:15→21:15)
[2018-06-16] MEDS: Heparin - SQ 10,000 UNITS/ML Vial SQ SCH ×3 (06:21→21:17)
[2018-06-16] MEDS: Famotidine PF Inj 20 MG/2 ML Vial IV.PUSH SCH ×2 (09:16→21:17)
[2018-06-16] MEDS: Insulin NovoLOG Aspart Correctional Sugar Inj SQ SCH ×4 (09:19→21:17)
[2018-06-16] MEDS: Senna/Docusate Sodium 8.6/50 MG Tablet PO SCH ×2 (09:20→21:18)
[2018-06-16] MEDS: Furosemide 20 MG Tablet PO SCH ×2 (09:45→17:30)
[2018-06-16] MEDS ORDERED: Pharmacy Ordered Lab Info OTHER ONE (10:45)
[2018-06-16] MEDS: Vancomycin Inj 1,500 MG in Sodium Chlor 0.9% Inj 500 ML IV.SIG SCH (10:46)
--- NOTE | 2018-06-16 17:14 | P.PNIM ---
Subjective Interval history: Follow-up CHS, generalized edema, anemia, AK I, diabetes mellitus type 2, gas gangrene of the right foot status post right guillotine BKA. Patient seen and examined, laying in bed, stated just finished with therapy and now was tired and in pain. Patient complains of pain 7 out of 10 scale on the right lower leg that is aggravated by the therapy, relieved with rest and pain medication. Patient stated he just had pain medication and is now starting to be relieved. Patient denies any chest pain or shortness of breath at rest complaint of shortness of breath with activity. Patient denies any headache or dizziness, denies any nausea or vomiting, denies any diarrhea today, just have one loose stool. Patient denies any fever or chills. Patient stated he will go back for surgery tomorrow for the right leg for second stage procedure and closure. Physical Exam Vital signs: Vital Signs 06/15/18 20:00 06/15/18 23:41 06/16/18 00:00 Temperature 97.7 F Pulse Rate 88 89 Respiratory Rate 20 18 20 Blood Pressure 145/83 H Pulse Oximetry 93 L 06/16/18 04:00 06/16/18 08:00 06/16/18 12:00 Temperature 97.4 F L 98.0 F 97.6 F Pulse Rate 88 89 91 H Respiratory Rate 20 17 17 Blood Pressure 148/85 H 140/91 H 150/92 H Pulse Oximetry 92 L 91 L 93 L 06/16/18 16:00 Temperature 97.5 F L Pulse Rate 92 H Respiratory Rate 18 Blood Pressure 143/101 H Pulse Oximetry 91 L Intake & Output 06/15/18 06/16/18 06/16/18 18:59 06:59 18:59 Intake Total 520 / 520 500 / 500 615 / 615 Output Total 500 / 500 400 / 400 Balance 20 / 20 100 / 100 615 / 615 Weight 101 kg Intake: IV 50 / 50 100 / 100 615 / 615 Zosyn 3.375 GM Premix 50 ML @ 50 / 50 100 / 100 100 / 100 100 mls/hr IV.SIG Q6H [facility] Rx#: [id number] Vancomycin Inj 1,500 MG In NS 515 / 515 Inj 500 ML @ 250 mls/hr IV.SIG Q48H [facility] Rx#:[id number] Oral 240 / 240 400 / 400 Other 230 / 230 Output: Urine 500 / 500 400 / 400 Other: Mode Setting R BKA stump Continuous Continuous # Voids 1 Date of Last Bowel Movement 06/15/18 # Bowel Movements 0 Narrative: GENERAL: Well-developed, well-nourished, alert and oriented x3, with no apparent distress SKIN: Warm and dry. Right below the knee stump dressed dry and intact with wound vac in place, left heel wound with dressing, no drainage noted. HEAD: Atraumatic. Normocephalic. EYES: Pupils equal and round. No scleral icterus. No injection or drainage. ENT: No nasal bleeding or discharge. Mucous membranes pink and moist. NECK: Trachea midline. No JVD. CARDIOVASCULAR: Regular rate and rhythm. lateral Hips,thigh,Bilateral lower extremity edema 1 + pitting, scrotal edema. RESPIRATORY: No accessory muscle use. Clear to auscultation. Breath sounds equal bilaterally. GASTROINTESTINAL: Abdomen soft, non-tender, nondistended. Hepatic and splenic margins not palpable. MUSCULOSKELETAL: Extremities without clubbing, cyanosis, or edema. No obvious deformities. right LE BKA stump dressed with wound vac, dry and intact NEUROLOGICAL: Awake and alert. No obvious cranial nerve deficits. Motor grossly within normal limits. Generalized weakness, moves all 4 extremities. Right lower extremity with limited range of motion normal speech. PSYCHIATRIC: Appropriate mood and affect; insight and judgment normal. - Urinary Catheter Management Indwelling Urethral Catheter Cath placed during this visit: yes, but has since been removed by the nurse Reason for continuing: Decision to DC catheter Insertion date: 06/09/18 Insertion time: 13:59 Removal date: 06/09/18 Removal time: 14:57 Results - Labs CBC & Chem 7: 06/15/18 06:12 06/16/18 07:07 Laboratory Results - last 24 hr 06/15/18 06/16/18 06/16/18 20:46 07:07 08:08 Creatinine 1.28 Estimated GFR 59 L POC Glucose 77 73 Vancomycin Trough 06/16/18 06/16/18 10:45 11:59 Creatinine Estimated GFR POC Glucose 83 Vancomycin Trough 17.5 H Microbiology 06/02/18 18:48 Wound - Foot Acid Fast Bacilli Smear - Final No acid fast bacilli seen 06/02/18 18:48 Wound - Foot Mycobacterial Culture - Preliminary No growth in 2 weeks - Imaging Impressions Chest X-Ray 06/15/18 00:00 CONCLUSION: Bilateral effusions and consolidation. Assessment and Plan - Plan 53-year-old male admitted with acute septic shock, respiratory failure status post extubation and BKA. Patient has been receiving ICU care and stabilized for transfer to the hospitalist service in the medical surgical floor. Septic shock/leukocytosis s/p right BKA/Gas Gangrene of the right foot -Broad-spectrum antibiotic with vancomycin and Zosyn, -ID Consulted, Multiple blood cultures with E. coli, wound culture with E. coli , gram-negative ankur, MRSA -Status post I&D and debridement, status post BKA by Dr. Quiles -Septic Shock resolved -Wound VAC, vascular surgery planning to close the wound on 06/17. Recommendations to continue serial wound VAC changes. -Continue [place]. Keep morphine IV as needed for breakthrough pain. Post Respiratory failure -Extubated, breathing comfortably i n room air -No sob, no upper airway problems. CHF/generalized edema generalized edema, Hip, Thighs, bilateral lower extremities -BNP 739 -CXray with Bilateral effusion and consolidation, on Broad-spectrum antibiotic with vancomycin and Zosyn, -continue Lasix, continue KCL replacement -monitor BMP Blood loss anemia -s/p 3 units of PRBC -Monitor H&H and transfuse to keep hemoglobin above 7 Acute kidney injury/hypokalemia/hypocalcemia Recent Renal Pathology at [facility]: Impression: diffuse and nodular diabetic glomerulosclerosis, moderately advanced and moderate arteriosclerosis and hyalinosis arteriosclerosis -KCL and calcium replaced -Strict I's and O's. IV fluid hydration -Monitor electrolytes and creatinine level -Creatinine has improved: 1.28 on 06/16, urine output adequate. Stabilized Diabetes mellitus Type 2 -blood sugar fair controlled, diabetic diet -Insulin sliding scale DVT:Teds SCDs, Heparin subcu GI prophylaxis:-Pepcid Code Status: Full code Discussed Condition With: Patient and nurse Discharge Planning: ship worker consult for discharge planning when cleared with ID and surgeon
[2018-06-16] MEDS: Morphine Inj 4 MG/ML Vial IV.PUSH PRN (17:30)
[2018-06-16] MEDS: Calcium Carbonate 500 MG Tablet PO SCH (21:16)
[2018-06-16] MEDS: Sodium Chloride 0.9% 2 ML Flush BID IV.FLUSH SCH (21:17)
--- NOTE | 2018-06-16 22:37 | P.PNVS ---
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 Wound VAC in place It should be noted that the time of surgery patient had purulent drainage from the proximal portion of the amputation so will take a few days before patient is ready for any further surgery In the best case scenario will undergo washout of the stump and closure on Thursday but depending on what it looks like I may delay the final closure for another few days after that In the meantime patient can be safely extubated and transferred to floor when stable 06/05/2018 Patient status post guillotine amputation of the right foot Considering the amount of infection gas gangrene and purulent drainage wound VAC will remain on for next few days Will likely washout the change wound VAC on Thursday and then go ahead and closed the incision probably around Thursday06/06/2018 Considering the amount of purulent drainage and degree of infection and gas gangrene I believe it is probably leonard to postpone final closure until at least Thursday Patient should have a washout of the stump at the bedside the new wound VAC placement tomorrow 06/07/2018 Wound VAC changed today 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 site appears to be 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 sewer 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 Will likely closed the incision on Thursday Nothing to add at this time 06/08/2018 Patient had not had a change of wound VAC yet Wound care has been consulted but I do not know why the wound VAC was not changed Will now postpone final surgery until but wound VAC has to be changed and wound washed out today For closure of the BKA stump on Thursday06/10/2018 Patient will have serial wound vacs changed as ordered and by next the drainage and everything should be resolved to the point that patient can have closure of the BKA stump This is a unusually heavily infected purulent tissue of the calf and I do not want to close this before I am sure that is going to heal nicely and not result in a new abscess 06/11/2018 Patient stable Wound VAC changed and grateful to wound care team doing such excellent job Will likely take patient to the operating room or Thursday for hopefully a second stage procedure and closure 06/16/18 Stump appears clean, no more drainage For washout and closure tomorrow Objective Vital Signs / I&O: Vital Signs 06/15/18 23:41 06/16/18 00:00 06/16/18 04:00 Temperature 97.7 F 97.4 F L Pulse Rate 89 88 Respiratory Rate 18 20 20 Blood Pressure 145/83 H 148/85 H Pulse Oximetry 93 L 92 L 06/16/18 08:00 06/16/18 12:00 06/16/18 16:00 Temperature 98.0 F 97.6 F 97.5 F L Pulse Rate 89 91 H 92 H Respiratory Rate 17 17 18 Blood Pressure 140/91 H 150/92 H 143/101 H Pulse Oximetry 91 L 93 L 91 L 06/16/18 20:00 Temperature 97.1 F L Pulse Rate 90 Respiratory Rate 19 Blood Pressure 149/92 H Pulse Oximetry 95 Intake & Output 06/16/18 06/16/18 06/17/18 06:59 18:59 06:59 Intake Total 500 / 500 975 / 975 Output Total 400 / 400 501 / 501 Balance 100 / 100 474 / 474 Weight 101 kg Intake: IV 100 / 100 615 / 615 Zosyn 3.375 GM Premix 50 ML @ 100 / 100 100 / 100 100 mls/hr IV.SIG Q6H [facility] Rx#: [id number] Vancomycin Inj 1,500 MG In NS 515 / 515 Inj 500 ML @ 250 mls/hr IV.SIG Q48H [facility] Rx#:[id number] Oral 400 / 400 360 / 360 Output: Urine 400 / 400 500 / 500 Stool / Other: Mode Setting R BKA stump Continuous Date of Last Bowel Movement 06/15/18 06/16/18 Laboratory Results - last 24 hr 06/16/18 06/16/18 06/16/18 07:07 08:08 10:45 Creatinine 1.28 Estimated GFR 59 L POC Glucose 73 Vancomycin Trough 17.5 H 06/16/18 06/16/18 06/16/18 11:59 16:51 21:14 Creatinine Estimated GFR POC Glucose 83 87 79 Vancomycin Trough Microbiology 06/02/18 18:48 Acid Fast Bacilli Smear - Final Wound - Foot No acid fast bacilli seen Mycobacterial Culture - Preliminary No growth in 2 weeks Impressions Chest X-Ray 06/15/18 00:00 CONCLUSION: Bilateral effusions and consolidation.
[2018-06-17 02:30] LABS: Baso # (Auto) 0.2 th/mm3 (0.0-0.2); Baso % (Auto) 1.3 % (0.0-2.0); Eos # (Auto) 0.1 th/mm3 (0.0-0.4); Eos % (Auto) 0.9 % (0.0-4.0); Hematocrit 27.3 % (39.0-51.0); Lymph # (Auto) 2.1 th/mm3 (1.0-4.8); Lymph % (Auto) 17.4 % (9.0-44.0); Mean Corpuscular HGB Conc 33.1 % (32.0-36.0); Mean Corpuscular Hemoglobin 28.4 pg (27.0-34.0); Mean Corpuscular Volume 85.9 fL (80.0-100.0); Mean Platelet Volume 6.4 fL (7.0-11.0); Mono # (Auto) 0.5 th/mm3 (0.0-0.9); Neut # (Auto) 9.1 th/mm3 (1.8-7.7); Neut % (Auto) 76.4 % (16.0-70.0); Platelet Count 324 th/mm3 (150-450); Red Blood Count 3.18 mil/mm3 (4.50-5.90); Red Cell Distribution Width 18.8 % (11.6-17.2); White Blood Count 11.9 th/mm3 (4.0-11.0)
[2018-06-17 02:48] LABS: Calcium 7.4 mg/dL (8.5-10.1); Carbon Dioxide 22.2 meq/L (21.0-32.0); Potassium 3.7 meq/L (3.5-5.1)
[2018-06-17 03:02] LABS: Total Protein 6.2 g/dL (6.4-8.2)
[2018-06-17] MEDS: Piperacil/Tazo 3.375 GM Premix 50 ML IV.SIG SCH ×4 (04:04→21:14)
[2018-06-17] MEDS: Heparin - SQ 10,000 UNITS/ML Vial SQ SCH ×3 (05:58→21:23)
[2018-06-17] MEDS: Insulin NovoLOG Aspart Correctional Sugar Inj SQ SCH ×4 (09:18→21:20)
[2018-06-17] MEDS: Calcium Carbonate 500 MG Tablet PO SCH ×2 (09:21→21:18)
[2018-06-17] MEDS: Famotidine PF Inj 20 MG/2 ML Vial IV.PUSH SCH ×2 (09:21→21:22)
[2018-06-17] MEDS: Sodium Chloride 0.9% 2 ML Flush BID IV.FLUSH SCH ×2 (09:23→21:18)
[2018-06-17] MEDS: Senna/Docusate Sodium 8.6/50 MG Tablet PO SCH ×2 (09:23→20:04)
[2018-06-17] MEDS: Furosemide 20 MG Tablet PO SCH ×2 (09:32→18:10)
[2018-06-17] MEDS ORDERED: Lidocaine PF 1% Inj 5 ML Syringe OTHER ONE (11:00)
[2018-06-17] MEDS ORDERED: Phenylephrine/NS 1000 MCG/10ML Syringe IV.PUSH ONE (11:00)
[2018-06-17] MEDS ORDERED: fentaNYL Citrate Inj 100 MCG/2 ML Ampul ONE (13:04)
--- NOTE | 2018-06-17 14:26 | P.PNVS ---
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 Wound VAC in place It should be noted that the time of surgery patient had purulent drainage from the proximal portion of the amputation so will take a few days before patient is ready for any further surgery In the best case scenario will undergo washout of the stump and closure on Thursday but depending on what it looks like I may delay the final closure for another few days after that In the meantime patient can be safely extubated and transferred to floor when stable 06/05/2018 Patient status post guillotine amputation of the right foot Considering the amount of infection gas gangrene and purulent drainage wound VAC will remain on for next few days Will likely washout the change wound VAC on Thursday and then go ahead and closed the incision probably around Thursday06/06/2018 Considering the amount of purulent drainage and degree of infection and gas gangrene I believe it is probably leonard to postpone final closure until at least Thursday Patient should have a washout of the stump at the bedside the new wound VAC placement tomorrow 06/07/2018 Wound VAC changed today Amputation site appears to be much housecleaner Will likely closed the incision on Thursday Nothing to add at this time 06/08/2018 Patient had not had a change of wound VAC yet Wound care has been consulted but I do not know why the wound VAC was not changed Will now postpone final surgery until but wound VAC has to be changed and wound washed out today For closure of the BKA stump on Thursday06/10/2018 Patient will have serial wound vacs changed as ordered and by next the drainage and everything should be resolved to the point that patient can have closure of the BKA stump This is a unusually heavily infected purulent tissue of the calf and I do not want to close this before I am sure that is going to heal nicely and not result in a new abscess 06/11/2018 Patient stable Wound VAC changed and grateful to wound care team doing such excellent job Will likely take patient to the operating room or Thursday for hopefully a second stage procedure and closure 06/16/18 Stump appears clean, no more drainage For washout and closure tomorrow 06/17/2018 Patient taken to the operating room for washout and closure of the right BKA stump. Patient underwent amputation at the higher BKA level as planned and flap was created and the time noticed that there is more drainage from the area of the medial gastrocnemius muscle and about 100 cc of thick purulent material is extracted this area is completely opened irrigated with copious amount of saline and a new wound VAC placed At this point have no choice but to continue the wound VAC therapy before I can close this and will periodically see how patient does. Eventually we will close BK stump but in face of continued purulence he will have to be postponed for at least another week if not more Objective Vital Signs / I&O: Vital Signs 06/16/18 16:00 06/16/18 20:00 06/17/18 00:00 Temperature 97.5 F L 97.1 F L 97.4 F L Pulse Rate 92 H 89 91 H Respiratory Rate 18 19 19 Blood Pressure 143/101 H 149/92 H 142/93 H Pulse Oximetry 91 L 95 94 L 06/17/18 04:00 06/17/18 08:00 06/17/18 12:50 Temperature 97.3 F L 97.4 F L 97.4 F L Pulse Rate 88 92 H 92 H Respiratory Rate 17 16 16 Blood Pressure 143/97 H 149/96 H 111/71 Pulse Oximetry 94 L 89 L 93 L 06/17/18 13:05 06/17/18 13:20 Temperature 97.4 F L Pulse Rate 91 H 90 Respiratory Rate 18 18 Blood Pressure 114/76 123/78 Pulse Oximetry 92 L 93 L Intake & Output 06/16/18 06/17/18 06/17/18 18:59 06:59 18:59 Intake Total 975 / 975 770 / 770 1050 / 1050 Output Total 501 / 501 850 / 850 450 / 450 Balance 474 / 474 -80 / -80 600 / 600 Weight 101.3 kg Intake: IV 615 / 615 100 / 100 50 / 50 Zosyn 3.375 GM Premix 50 ML @ 100 / 100 100 / 100 50 / 50 100 mls/hr IV.SIG Q6H [facility] Rx#: [id number] Vancomycin Inj 1,500 MG In NS 515 / 515 Inj 500 ML @ 250 mls/hr IV.SIG Q48H [facility] Rx#:[id number] Oral 360 / 360 670 / 670 Anesthesia Amount 1000 / 1000 Output: Urine 500 / 500 850 / 850 Stool 1 / 1 Estimated Blood Loss 450 / 450 Other: Mode Setting R BKA stump Continuous Continuous Date of Last Bowel Movement 06/16/18 06/17/18 # Bowel Movements 3 Laboratory Results - last 24 hr 06/16/18 06/16/18 06/17/18 16:51 21:14 02:09 WBC 11.9 H RBC 3.18 L Hgb 9.0 L Hct 27.3 L MCV 85.9 MCH 28.4 MCHC 33.1 RDW 18.8 H Plt Count 324 MPV 6.4 L Neut % (Auto) 76.4 H Lymph % (Auto) 17.4 Chase % (Auto) 4.0 Eos % (Auto) 0.9 Baso % (Auto) 1.3 Neut # (Auto) 9.1 H Lymph # (Auto) 2.1 Chase # (Auto) 0.5 Eos # (Auto) 0.1 Baso # (Auto) 0.2 WBC Differential . Differential Comment Auto diff final Sodium Potassium Chloride Carbon Dioxide Anion Gap BUN Creatinine Estimated GFR POC Glucose 87 79 Random Glucose Calcium Prot Corrected Calcium Total Protein Blood Type Blood Type Recheck Antibody Screen MTS Gel Crossmatch 06/17/18 06/17/18 06/17/18 02:09 02:09 07:52 WBC RBC Hgb Hct MCV MCH MCHC RDW Plt Count MPV Neut % (Auto) Lymph % (Auto) [place] % (Auto) Eos % (Auto) Baso % (Auto) Neut # (Auto) Lymph # (Auto) Chase # (Auto) Eos # (Auto) Baso # (Auto) WBC Differential Differential Comment Sodium 146 H Potassium 3.7 Chloride 113 H Carbon Dioxide 22.2 Anion Gap 11 BUN 18 Creatinine 1.20 Estimated GFR 64 L POC Glucose 101 Random Glucose 98 Calcium 7.4 L* Prot Corrected Calcium 7.9 L Total Protein 6.2 L Blood Type O Negative Blood Type Recheck Not needed Antibody Screen Negative MTS Gel Crossmatch See Detail 06/17/18 06/17/18 10:19 12:55 WBC RBC Hgb Hct MCV MCH MCHC RDW Plt Count MPV Neut % (Auto) Lymph % (Auto) Chase % (Auto) Eos % (Auto) Baso % (Auto) Neut # (Auto) Lymph # (Auto) Chase # (Auto) Eos # (Auto) Baso # (Auto) WBC Differential Differential Comment Sodium Potassium Chloride Carbon Dioxide Anion Gap BUN Creatinine Estimated GFR POC Glucose 98 93 Random Glucose Calcium Prot Corrected Calcium Total Protein Blood Type Blood Type Recheck Antibody Screen MTS Gel Crossmatch Microbiology 06/02/18 18:48 Acid Fast Bacilli Smear - Final Wound - Foot No acid fast bacilli seen Mycobacterial Culture - Preliminary No growth in 2 weeks Impressions Chest X-Ray 06/15/18 00:00 CONCLUSION: Bilateral effusions and consolidation.
[2018-06-17] MEDS: Morphine Inj 4 MG/ML Vial IV.PUSH PRN ×2 (14:51→21:30)
--- NOTE | 2018-06-17 16:11 | OTSOAPIP ---
TIME SESSION COMPLETED: AM TREATMENT TIME: 0 MINS. ATTEMPTED TO SEE PATIENT HOWEVER PATIENT WAS NOT AVAILABLE DUE TO HAVING SURGERY PLAN: WILL SEE WHEN ABLE OR NEXT TREATMENT DAY Therapist: Sasha Avery Signature on file
--- NOTE | 2018-06-17 16:18 | P.PNIM ---
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 Patient just came back from BKA washing and closure. Patient laying in bed stated in so much pain of 11 out of 10 on the right lower leg. Just had pain medication morphine 15 minutes ago. Patient denies any headache or dizziness denies any nausea vomiting denies any chest pain or shortness of breath. Physical Exam Vital signs: Vital Signs 06/16/18 20:00 06/17/18 00:00 06/17/18 04:00 Temperature 97.1 F L 97.4 F L 97.3 F L Pulse Rate 89 91 H 88 Respiratory Rate 19 19 17 Blood Pressure 149/92 H 142/93 H 143/97 H Pulse Oximetry 95 94 L 94 L 06/17/18 08:00 06/17/18 12:50 06/17/18 13:05 Temperature 97.4 F L 97.4 F L Pulse Rate 92 H 92 H 91 H Respiratory Rate 16 16 18 Blood Pressure 149/96 H 111/71 114/76 Pulse Oximetry 89 L 93 L 92 L 06/17/18 13:20 Temperature 97.4 F L Pulse Rate 90 Respiratory Rate 18 Blood Pressure 123/78 Pulse Oximetry 93 L Intake & Output 06/16/18 06/17/18 06/17/18 18:59 06:59 18:59 Intake Total 975 / 975 770 / 770 1100 / 1100 Output Total 501 / 501 850 / 850 450 / 450 Balance 474 / 474 -80 / -80 650 / 650 Weight 101.3 kg Intake: IV 615 / 615 100 / 100 100 / 100 Zosyn 3.375 GM Premix 50 ML @ 100 / 100 100 / 100 100 / 100 100 mls/hr IV.SIG Q6H [facility] Rx#: [id number] Vancomycin Inj 1,500 MG In NS 515 / 515 Inj 500 ML @ 250 mls/hr IV.SIG Q48H [facility] Rx#:[id number] Oral 360 / 360 670 / 670 Anesthesia Amount 1000 / 1000 Output: Urine 500 / 500 850 / 850 Stool 1 / 1 Estimated Blood Loss 450 / 450 Other: Mode Setting R BKA stump Continuous Continuous Date of Last Bowel Movement 06/16/18 06/17/18 # Bowel Movements 3 Narrative: GENERAL: Well-developed, well-nourished, alert and oriented x3, with no apparent distress SKIN: Warm and dry. Right below the knee stump dressed sanguinous drainage noted, wound VAC in place vac in place, left heel wound with dressing, no drainage noted. HEAD: Atraumatic. Normocephalic. EYES: Pupils equal and round. No scleral icterus. No injection or drainage. ENT: No nasal bleeding or discharge. Mucous membranes pink and moist. NECK: Trachea midline. No JVD. CARDIOVASCULAR: Regular rate and rhythm. lateral Hips,thigh,Bilateral lower extremity edema 1 + pitting, scrotal edema. RESPIRATORY: No accessory muscle use. Clear to auscultation. Breath sounds equal bilaterally. GASTROINTESTINAL: Abdomen soft, non-tender, nondistended. Hepatic and splenic margins not palpable. MUSCULOSKELETAL: Extremities without clubbing, cyanosis, or edema. No obvious deformities. right LE BKA stump dressed with wound vac, dry and intact NEUROLOGICAL: Awake and alert. No obvious cranial nerve deficits. Motor grossly within normal limits. Generalized weakness, moves all 4 extremities. Right lower extremity with limited range of motion normal speech. PSYCHIATRIC: Appropriate mood and affect; insight and judgment normal. - Urinary Catheter Management Indwelling Urethral Catheter Cath placed during this visit: yes, but has since been removed by the nurse Reason for continuing: Decision to DC catheter Insertion date: 06/09/18 Insertion time: 13:59 Removal date: 06/09/18 Removal time: 14:57 Results - Labs CBC & Chem 7: 06/17/18 02:09 06/17/18 02:09 Laboratory Results - last 24 hr 06/16/18 06/16/18 06/17/18 16:51 21:14 02:09 WBC 11.9 H RBC 3.18 L Hgb 9.0 L Hct 27.3 L MCV 85.9 MCH 28.4 MCHC 33.1 RDW 18.8 H Plt Count 324 MPV 6.4 L Neut % (Auto) 76.4 H Lymph % (Auto) 17.4 [place] % (Auto) 4.0 Eos % (Auto) 0.9 Baso % (Auto) 1.3 Neut # (Auto) 9.1 H Lymph # (Auto) 2.1 [place] # (Auto) 0.5 Eos # (Auto) 0.1 Baso # (Auto) 0.2 WBC Differential . Differential Comment Auto diff final Sodium Potassium Chloride Carbon Dioxide Anion Gap BUN Creatinine Estimated GFR POC Glucose 87 79 Random Glucose Calcium Prot Corrected Calcium Total Protein Blood Type Blood Type Recheck Antibody Screen MTS Gel Crossmatch 06/17/18 06/17/18 06/17/18 02:09 02:09 07:52 WBC RBC Hgb Hct MCV MCH MCHC RDW Plt Count MPV Neut % (Auto) Lymph % (Auto) [place] % (Auto) Eos % (Auto) Baso % (Auto) Neut # (Auto) Lymph # (Auto) [place] # (Auto) Eos # (Auto) Baso # (Auto) WBC Differential Differential Comment Sodium 146 H Potassium 3.7 Chloride 113 H Carbon Dioxide 22.2 Anion Gap 11 BUN 18 Creatinine 1.20 Estimated GFR 64 L POC Glucose 101 Random Glucose 98 Calcium 7.4 L* Prot Corrected Calcium 7.9 L Total Protein 6.2 L Blood Type O Negative Blood Type Recheck Not needed Antibody Screen Negative MTS Gel Crossmatch See Detail 06/17/18 06/17/18 10:19 12:55 WBC RBC Hgb Hct MCV MCH MCHC RDW Plt Count MPV Neut % (Auto) Lymph % (Auto) [place] % (Auto) Eos % (Auto) Baso % (Auto) Neut # (Auto) Lymph # (Auto) [place] # (Auto) Eos # (Auto) Baso # (Auto) WBC Differential Differential Comment Sodium Potassium Chloride Carbon Dioxide Anion Gap BUN Creatinine Estimated GFR POC Glucose 98 93 Random Glucose Calcium Prot Corrected Calcium Total Protein Blood Type Blood Type Recheck Antibody Screen MTS Gel Crossmatch Microbiology 06/02/18 18:48 Wound - Foot Acid Fast Bacilli Smear - Final No acid fast bacilli seen 06/02/18 18:48 Wound - Foot Mycobacterial Culture - Preliminary No growth in 2 weeks Assessment and Plan - Assessment (1) Status post below knee amputation Code(s): Z89.519 - Acquired absence of unspecified leg below knee Status: Acute (2) Gas gangrene Code(s): A48.0 - Gas gangrene Status: Acute (3) CHF (congestive heart failure) Code(s): I50.9 - Heart failure, unspecified Status: Acute (4) YOLY (acute kidney injury) Code(s): N17.9 - Acute kidney failure, unspecified Status: Acute (5) Sepsis Code(s): A41.9 - Sepsis, unspecified organism Status: Acute - Plan 53-year-old male admitted with acute septic shock, respiratory failure status post extubation and BKA. Patient has been receiving ICU care and stabilized for transfer to the hospitalist service in the medical surgical floor. Septic shock/leukocytosis s/p right BKA/Gas Gangrene of the right foot Status post higher BKA and flap today 06/17/18 -Broad-spectrum antibiotic with vancomycin and Zosyn, -ID Consulted, Multiple blood cultures with E. coli, wound culture with E. coli , gram-negative ankur, MRSA -Status post I&D and debridement, status post BKA by Dr. Quiles -Septic Shock resolved -Continue [place] and morphine IV as needed for breakthrough pain. -Vascular surgery noted right BKA stump with continued with purulence drainage, plan for stump closure for at least another week or more we will continue wound VAC for now Post Respiratory failure -Extubated, breathing comfortably i n room air -No sob, no upper airway problems. CHF/generalized edema generalized edema, Hip, Thighs, bilateral lower extremities -BNP 739 -CXray with Bilateral effusion and consolidation, on Broad-spectrum antibiotic with vancomycin and Zosyn, -continue Lasix, continue KCL replacement -monitor BMP Blood loss anemia -s/p 3 units of PRBC -Monitor H&H and transfuse to keep hemoglobin above 7 -h/h 9.0/27.3 Acute kidney injury/hypokalemia/hypocalcemia Recent Renal Pathology at [facility]: Impression: diffuse and nodular diabetic glomerulosclerosis, moderately advanced and moderate arteriosclerosis and hyalinosis arteriosclerosis -KCL and calcium replaced -Strict I's and O's. IV fluid hydration -Monitor electrolytes and creatinine level -Creatinine has improved: 1.28 on 06/16, urine output adequate. Stabilized Diabetes mellitus Type 2 -blood sugar fair controlled, diabetic diet -Insulin sliding scale DVT:Teds SCDs, Heparin subcu GI prophylaxis:-Pepcid Code Status: Full code Discussed Condition With: Patient and nurse Discharge Planning: group social worker consult for discharge planning when cleared with ID and surgeon (3) CHF (congestive heart failure) Qualifiers: Heart failure type: unspecified Heart failure chronicity: acute on chronic Qualified Code(s): I50.9 - Heart failure, unspecified (5) Sepsis Qualifiers: Sepsis type: sepsis due to unspecified organism Qualified Code(s): A41.9 - Sepsis, unspecified organism
[2018-06-18] MEDS: Morphine Inj 4 MG/ML Vial IV.PUSH PRN ×2 (02:25→12:35)
[2018-06-18] MEDS: Piperacil/Tazo 3.375 GM Premix 50 ML IV.SIG SCH ×4 (02:28→20:30)
[2018-06-18] MEDS: Heparin - SQ 10,000 UNITS/ML Vial SQ SCH (05:58)
[2018-06-18 07:27] LABS: Baso # (Auto) 0.2 th/mm3 (0.0-0.2); Baso % (Auto) 1.2 % (0.0-2.0); Eos # (Auto) 0.1 th/mm3 (0.0-0.4); Eos % (Auto) 0.8 % (0.0-4.0); Lymph # (Auto) 2.3 th/mm3 (1.0-4.8); Lymph % (Auto) 14.2 % (9.0-44.0); Mean Corpuscular HGB Conc 33.5 % (32.0-36.0); Mean Corpuscular Hemoglobin 28.3 pg (27.0-34.0); Mean Corpuscular Volume 84.5 fL (80.0-100.0); Mean Platelet Volume 7.1 fL (7.0-11.0); Mono # (Auto) 0.6 th/mm3 (0.0-0.9); Mono % (Auto) 3.8 % (0.0-8.0); Neut # (Auto) 12.8 th/mm3 (1.8-7.7); Platelet Count 226 th/mm3 (150-450); Red Blood Count 2.27 mil/mm3 (4.50-5.90); Red Cell Distribution Width 19.2 % (11.6-17.2)
[2018-06-18 07:50] LABS: Calcium 7.5 mg/dL (8.5-10.1); Potassium 3.8 meq/L (3.5-5.1)
[2018-06-18 08:14] LABS: Hematocrit 19.2 % (39.0-51.0); Hemoglobin 6.4 gm/dL (13.0-17.0)
[2018-06-18] MEDS: Insulin NovoLOG Aspart Correctional Sugar Inj SQ SCH ×4 (09:21→20:53)
[2018-06-18] MEDS: Furosemide 20 MG Tablet PO SCH ×2 (09:34→18:00)
[2018-06-18] MEDS: Calcium Carbonate 500 MG Tablet PO SCH ×2 (09:34→20:30)
[2018-06-18] MEDS: Sodium Chloride 0.9% 2 ML Flush BID IV.FLUSH SCH ×2 (09:35→20:31)
[2018-06-18] MEDS: Senna/Docusate Sodium 8.6/50 MG Tablet PO SCH ×2 (09:35→20:31)
[2018-06-18] MEDS ORDERED: Sodium Chlor 0.9% Inj 250 ML IV.SIG SCH (10:00)
--- NOTE | 2018-06-18 10:08 | P.PNIM ---
Subjective Interval history: Follow-up right higher acute anemia on chronic, BKA postop day 1, MRSA, AKA, diabetes type 2, CHF, and generalized edema. Nurse reported patient had about 450 mL of wound VAC output that is sanguinous overnight, this morning from 6:00 is 150 out from the wound for 3 hours. Patient seen and examined, laying in bed , stated pain is better today than was yesterday after the procedure. Patient stated pain tolerable, nurse given p.o. pain medication at 6:00 in the morning and morphine at 2:00 in the morning. Patient denies any headache or dizziness denies any fever or chills. Patient denies any chest pain or shortness of breath, nausea or vomiting, denies diarrhea or constipation today. Physical Exam Vital signs: Vital Signs 06/17/18 12:50 06/17/18 13:05 06/17/18 13:20 Temperature 97.4 F L 97.4 F L Pulse Rate 92 H 91 H 90 Respiratory Rate 16 18 18 Blood Pressure 111/71 114/76 123/78 Pulse Oximetry 93 L 92 L 93 L 06/17/18 16:00 06/17/18 20:00 06/18/18 00:00 Temperature 97.3 F L 98 F 98.4 F Pulse Rate 93 H 92 H 95 H Respiratory Rate 20 15 18 Blood Pressure 141/90 H 143/81 H Pulse Oximetry 91 L 94 L 98 06/18/18 04:00 06/18/18 08:00 Temperature 97.4 F L 97.1 F L Pulse Rate 92 H 97 H Respiratory Rate 15 18 Blood Pressure 105/73 124/76 Pulse Oximetry 94 L 94 L Intake & Output 06/17/18 06/18/18 06/18/18 18:59 06:59 18:59 Intake Total 1100 / 1100 100 / 100 Output Total 1050 / 1050 1000 / 1000 Balance 50 / 50 -900 / -900 Weight 100.8 kg Intake: IV 100 / 100 100 / 100 Zosyn 3.375 GM Premix 50 ML @ 100 / 100 100 / 100 100 mls/hr IV.SIG Q6H [facility] Rx#: [id number] Anesthesia Amount 1000 / 1000 Output: Urine 600 / 600 550 / 550 Estimated Blood Loss 450 / 450 Wound Vac Amount 450 / 450 R BKA stump 450 / 450 Other: Mode Setting R BKA stump Continuous Continuous Narrative: GENERAL: Well-developed, well-nourished, alert and oriented x3, with no apparent distress SKIN: Warm and dry. Right below the knee stump dressed moderate amount of sanguinous drainage noted, wound VAC in place, left heel wound with dressing, no drainage noted. HEAD: Atraumatic. Normocephalic. EYES: Pupils equal and round. No scleral icterus. No injection or drainage. ENT: No nasal bleeding or discharge. Mucous membranes pink and moist. NECK: Trachea midline. No JVD. CARDIOVASCULAR: Regular rate and rhythm. lateral Hips, thigh, Bilateral lower extremity edema 1 + pitting, scrotal edema. RESPIRATORY: No accessory muscle use. Clear to auscultation. Breath sounds equal bilaterally. GASTROINTESTINAL: Abdomen soft, non-tender, nondistended. Hepatic and splenic margins not palpable. MUSCULOSKELETAL: Extremities without clubbing, cyanosis, or edema. No obvious deformities. right LE BKA stump dressed with wound VAC NEUROLOGICAL: Awake and alert. No obvious cranial nerve deficits. Motor grossly within normal limits. Generalized weakness, moves all 4 extremities. Right lower extremity with limited range of motion. normal speech. PSYCHIATRIC: Appropriate mood and affect; insight and judgment normal. - Urinary Catheter Management Indwelling Urethral Catheter Cath placed during this visit: yes, but has since been removed by the nurse Reason for continuing: Decision to DC catheter Insertion date: 06/09/18 Insertion time: 13:59 Removal date: 06/09/18 Removal time: 14:57 Results - Labs CBC & Chem 7: 06/18/18 05:58 06/18/18 05:58 Laboratory Results - last 24 hr 06/17/18 06/17/18 06/17/18 10:19 12:55 21:20 WBC RBC Hgb Hct MCV MCH MCHC RDW Plt Count MPV Neut % (Auto) Lymph % (Auto) [place] % (Auto) Eos % (Auto) Baso % (Auto) Neut # (Auto) Lymph # (Auto) [place] # (Auto) Eos # (Auto) Baso # (Auto) WBC Differential Differential Comment Sodium Potassium Chloride Carbon Dioxide Anion Gap BUN Creatinine Estimated GFR POC Glucose 98 93 92 Random Glucose Calcium 06/18/18 06/18/18 05:58 05:58 WBC 16.0 H RBC 2.27 L Hgb 6.4 L* D Hct 19.2 L* MCV 84.5 MCH 28.3 MCHC 33.5 RDW 19.2 H Plt Count 226 D MPV 7.1 Neut % (Auto) 80.0 H Lymph % (Auto) 14.2 [place] % (Auto) 3.8 Eos % (Auto) 0.8 Baso % (Auto) 1.2 Neut # (Auto) 12.8 H Lymph # (Auto) 2.3 [place] # (Auto) 0.6 Eos # (Auto) 0.1 Baso # (Auto) 0.2 WBC Differential . Differential Comment Auto diff final Sodium 145 Potassium 3.8 Chloride 113 H Carbon Dioxide 24.0 Anion Gap 8 BUN 18 Creatinine 1.29 Estimated GFR 58 L POC Glucose Random Glucose 95 Calcium 7.5 L Microbiology 06/17/18 12:07 Wound - Leg Acid Fast Bacilli Smear - Final No acid fast bacilli seen Assessment and Plan - Assessment (1) Status post below knee amputation Code(s): Z89.519 - Acquired absence of unspecified leg below knee Status: Acute (2) Gas gangrene Code(s): A48.0 - Gas gangrene Status: Acute (3) CHF (congestive heart failure) Code(s): I50.9 - Heart failure, unspecified Status: Acute (4) YOLY (acute kidney injury) Code(s): N17.9 - Acute kidney failure, unspecified Status: Acute (5) Sepsis Code(s): A41.9 - Sepsis, unspecified organism Status: Acute - Plan 53-year-old male admitted with acute septic shock, respiratory failure status post extubation and BKA. Patient has been receiving ICU care and stabilized for transfer to the hospitalist service in the medical surgical floor. Septic shock/leukocytosis s/p right BKA/Gas Gangrene of the right foot 06/03/18 Status post higher BKA and flap today 06/17/18 -Broad-spectrum antibiotic with vancomycin and Zosyn, -ID Consulted, Multiple blood cultures with E. coli, wound culture with E. coli , gram-negative ankur, MRSA -Status post I&D and debridement, status post BKA by Dr. Quiles 06/03/18 -Septic Shock resolved -Continue [place] and morphine IV as needed for breakthrough pain. -s/p [place] BKA 06/17/18-Vascular surgery noted right BKA stump with continued with purulence drainage, plan for stump closure for at least another week or more we will continue wound VAC for now -Right BKA stump with wound vac and moderate amounts of sanguinous drainage with clots, will appreciate wound care team to do the wound VAC dressing. Acute Anemia on chronic, likely due to post op blood loss and moderate wound vac drainage -hold heparin due to bleeding -transfuse 2 units PRBC today with Lasix in between -monitor CBC Post Respiratory failure -Extubated, breathing comfortably i n room air -No sob, no upper airway problems. CHF/generalized edema generalized edema, Hip, Thighs, bilateral lower extremities -BNP 739 -CXray with Bilateral effusion and consolidation, on Broad-spectrum antibiotic with vancomycin and Zosyn, -continue Lasix, continue KCL replacement -monitor BMP Blood loss anemia -s/p 3 units of PRBC -Monitor H&H and transfuse to keep hemoglobin above 7 -h/h 9.0/27.3 Acute kidney injury/hypokalemia/hypocalcemia Recent Renal Pathology at [facility]: Impression: diffuse and nodular diabetic glomerulosclerosis, moderately advanced and moderate arteriosclerosis and hyalinosis arteriosclerosis -KCL and calcium replaced -Strict I's and O's. IV fluid hydration -Monitor electrolytes and creatinine level -Creatinine has improved: 1.28 on 06/16, urine output adequate. 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
[2018-06-18 10:56] LABS: INR 1.3 Ratio; Prothrombin Time 13.3 sec (9.8-11.6)
[2018-06-18] MEDS: Famotidine PF Inj 20 MG/2 ML Vial IV.PUSH SCH ×2 (12:55→20:30)
--- NOTE | 2018-06-18 14:01 | P.PNVS ---
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 Wound VAC in place It should be noted that the time of surgery patient had purulent drainage from the proximal portion of the amputation so will take a few days before patient is ready for any further surgery In the best case scenario will undergo washout of the stump and closure on Thursday but depending on what it looks like I may delay the final closure for another few days after that In the meantime patient can be safely extubated and transferred to floor when stable 06/05/2018 Patient status post guillotine amputation of the right foot Considering the amount of infection gas gangrene and purulent drainage wound VAC will remain on for next few days Will likely washout the change wound VAC on Thursday and then go ahead and closed the incision probably around Thursday06/06/2018 Considering the amount of purulent drainage and degree of infection and gas gangrene I believe it is probably leonard to postpone final closure until at least Thursday Patient should have a washout of the stump at the bedside the new wound VAC placement tomorrow 06/07/2018 Wound VAC changed today Amputation site appears to be much leather cleaner Will likely closed the incision on Thursday Nothing to add at this time 06/08/2018 Patient had not had a change of wound VAC yet Wound care has been consulted but I do not know why the wound VAC was not changed Will now postpone final surgery until but wound VAC has to be changed and wound washed out today For closure of the BKA stump on Thursday06/10/2018 Patient will have serial wound vacs changed as ordered and by next the drainage and everything should be resolved to the point that patient can have closure of the BKA stump This is a unusually heavily infected purulent tissue of the calf and I do not want to close this before I am sure that is going to heal nicely and not result in a new abscess 06/11/2018 Patient stable Wound VAC changed and grateful to wound care team doing such excellent job Will likely take patient to the operating room or Thursday for hopefully a second stage procedure and closure 06/16/18 Stump appears clean, no more drainage For washout and closure tomorrow 06/17/2018 Patient taken to the operating room for washout and closure of the right BKA stump. Patient underwent amputation at the higher BKA level as planned and flap was created and the time noticed that there is more drainage from the area of the medial gastrocnemius muscle and about 100 cc of thick purulent material is extracted this area is completely opened irrigated with copious amount of saline and a new wound VAC placed At this point have no choice but to continue the wound VAC therapy before I can close this and will periodically see how patient does. Eventually we will close BK stump but in face of continued purulence he will have to be postponed for at least another week if not more 06/18/2018 Patient is status post amputation of the right leg with open stump and wound VAC Is noted during the surgery patient still had about 100 cc of isabella pus in the area of medial gastrocnemius muscle and this whole area has been opened up. Wound VAC on suction and expect a lot of drainage from this Hemoglobin 7 g/dL this morning we will transfuse 2 units PRBC Continue wound VAC changes as previously directed and hopefully by will take patient back to the operating room for another washout and hopefully closure of the stump. Objective Vital Signs / I&O: Vital Signs 06/17/18 16:00 06/17/18 20:00 06/18/18 00:00 Temperature 97.3 F L 98 F 98.4 F Pulse Rate 93 H 92 H 95 H Respiratory Rate 20 15 18 Blood Pressure 141/90 H 143/81 H Pulse Oximetry 91 L 94 L 98 06/18/18 04:00 06/18/18 08:00 06/18/18 12:00 Temperature 97.4 F L 97.1 F L 97.4 F L Pulse Rate 92 H 97 H 95 H Respiratory Rate 15 18 18 Blood Pressure 105/73 124/76 115/75 Pulse Oximetry 94 L 94 L 93 L 06/18/18 12:48 Temperature 97.4 F L Pulse Rate 95 H Respiratory Rate 18 Blood Pressure 115/75 Pulse Oximetry 93 L Intake & Output 10/04/18 10/05/18 10/05/18 18:59 06:59 18:59 Intake Total 1100 / 1100 100 / 100 0 / 0 Output Total 1050 / 1050 1000 / 1000 Balance 50 / 50 -900 / -900 0 / 0 Weight 100.8 kg Intake: IV 100 / 100 100 / 100 Zosyn 3.375 GM Premix 50 ML @ 100 / 100 100 / 100 100 mls/hr IV.SIG Q6H [facility] Rx#: [id number] Anesthesia Amount 1000 / 1000 Intake (Blood Product) Amt 0 / 0 Rbc As-3 Leukoreduced Unit 0 / 0 [id number] Output: Urine 600 / 600 550 / 550 Estimated Blood Loss 450 / 450 Wound Vac Amount 450 / 450 R BKA stump 450 / 450 Other: Mode Setting R BKA stump Continuous Continuous Laboratory Results - last 24 hr 06/17/18 06/17/18 06/18/18 02:09 21:20 05:58 WBC 16.0 H RBC 2.27 L Hgb 6.4 L* D Hct 19.2 L* MCV 84.5 MCH 28.3 MCHC 33.5 RDW 19.2 H Plt Count 226 D MPV 7.1 Neut % (Auto) 80.0 H Lymph % (Auto) 14.2 [place] % (Auto) 3.8 Eos % (Auto) 0.8 Baso % (Auto) 1.2 Neut # (Auto) 12.8 H Lymph # (Auto) 2.3 [place] # (Auto) 0.6 Eos # (Auto) 0.1 Baso # (Auto) 0.2 WBC Differential . Differential Comment Auto diff final PT INR Sodium Potassium Chloride Carbon Dioxide Anion Gap BUN Creatinine Estimated GFR POC Glucose 92 Random Glucose Calcium Blood Type O Negative Blood Type Recheck Not needed Antibody Screen Negative MTS Gel Crossmatch See Detail 06/18/18 06/18/18 05:58 10:20 WBC RBC Hgb Hct MCV MCH MCHC RDW Plt Count MPV Neut % (Auto) Lymph % (Auto) [place] % (Auto) Eos % (Auto) Baso % (Auto) Neut # (Auto) Lymph # (Auto) [place] # (Auto) Eos # (Auto) Baso # (Auto) WBC Differential Differential Comment PT 13.3 H INR 1.3 Sodium 145 Potassium 3.8 Chloride 113 H Carbon Dioxide 24.0 Anion Gap 8 BUN 18 Creatinine 1.29 Estimated GFR 58 L POC Glucose Random Glucose 95 Calcium 7.5 L Blood Type Blood Type Recheck Antibody Screen MTS Gel Crossmatch Microbiology 06/17/18 12:07 Fungal Smear - Final Wound - Leg No fungal elements seen 06/17/18 12:07 Gram Stain - Final Wound - Leg Wound Culture - Preliminary No growth in 24 hours 06/17/18 12:07 Acid Fast Bacilli Smear - Final Wound - Leg No acid fast bacilli seen
--- NOTE | 2018-06-18 14:21 | MP ---
cc: Jean Dexter MD DATE OF OPERATION: 06/18/2018 POSTOPERATIVE DIAGNOSIS: Gas gangrene of the right leg, status post guillotine amputation. POSTOPERATIVE DIAGNOSIS: Gas gangrene of the right leg, status post guillotine amputation and continues with purported drainage. OPERATIVE PROCEDURE: Right below-knee amputation without closure of the flaps. SURGEON: Jean Dexter MD ANESTHESIA: General. ESTIMATED BLOOD LOSS: 400 mL. INDICATIONS: This 53-year-old male underwent a guillotine amputation for gas gangrene and since then had washouts and wound VAC on the stump. The patient is now coming to the operating room for completion right below-knee amputation and possible closure. DESCRIPTION OF PROCEDURE: The patient was prepped and draped in usual fashion. The incision was made over the tibial skin and then extended laterally down to the end of the stump. This was deepened with the cautery medially and around the tibia and then laterally to the fibula. Anterior tibial artery and veins clamped, divided, and ligated with 0 Vicryl. The tibia and fibula are now freed up and with a periosteal elevator, the periosteum is elevated for about 1 inch above the original level of the incision and then both bones are transected with a Gigli saw. A posterior flap is created with an amputation knife and the specimen removed. Meticulous hemostasis obtained with 0 Vicryl stick ties [id number] to the trifurcation branches. Small veins are ligated and cautery was used to stop other bleeding. Stump is now irrigated with saline. It is noted that in the area of the medial gastrocnemius posteriorly, going all the way up to the popliteal fossa, there is still about 100 mL of pink brownish appearing purulent material foul smelling. This wound was irrigated copiously and this space is completely filleted open so there are no recesses. Stump is now irrigated with about 2 liters of warm saline and then after meticulous hemostasis assured, the wound VAC is applied. The patient tolerated the procedure well. He will be having changes of wound VAC at this point at the bedside and washouts and then hopefully in the week or so, he will be ready to go to the OR to close this flap. Clearly closure of the flap at this time would have been otherwise in the presence of continuous infection. MD Yoly Marin , 01:52 PM , 02:02 PM
--- NOTE | 2018-06-18 17:29 | P.PNWCN ---
Wound Care Nurse Consult Description: Patient seen earlier for wound VAc dressing reinforcement Communicated with: Doctor Quiles and RN Suzi Honeycutt 4 north Recommendation: Please reinforce as needed with VAC drape if leaking. Wound Vac - Wound Vac Right BKA stump Pressure Setting (mmHg): 125 (low) Mode Setting: Continuous Drainage Description: Sanguinous Foam type: Black - Additional Information Received call from Rachelle HA, notifying radio news writer that AGUILAR Kendall is requesting wound care for assistance with leaking wound VAC. Spoke with Doctor Quiles earlier regarding wound VAC, Doctor Etta informed radio news writer that wound VAC did not need to be changed today and was suctioning fine. Wound VAc is observed with two areas of congealed sanguinous drainage under VAC drape. Removed VAC drape in place over congealed sanguinous drainage and cleansed skin to remove congealed blood. Applied skin barrier film to skin before reinforcing VAC dressing with VAC drape. Patient VAc is still not functioning correctly with blockage notification. Removed Sensi-trac pad in place and hole was cut larger in dressing to allow for Sensors on Sensi-trac pad to be in better contact with granufoam. Applied new Sensi trac pad in place. Wound VAC is functioning properly with Sanguinous drainage noted in canister.Doctor Quiles was notified of dressing reinforcement.
[2018-06-18] MEDS: Vancomycin Inj 1,500 MG in Sodium Chlor 0.9% Inj 500 ML IV.SIG SCH ×2 (19:46→22:19)
[2018-06-19] MEDS: Piperacil/Tazo 3.375 GM Premix 50 ML IV.SIG SCH ×4 (03:56→20:13)
[2018-06-19] MEDS: Insulin NovoLOG Aspart Correctional Sugar Inj SQ SCH ×4 (07:59→20:15)
[2018-06-19 08:10] LABS: Baso # (Auto) 0.1 th/mm3 (0.0-0.2); Baso % (Auto) 1.1 % (0.0-2.0); Eos # (Auto) 0.3 th/mm3 (0.0-0.4); Eos % (Auto) 2.1 % (0.0-4.0); Hematocrit 23.9 % (39.0-51.0); Hemoglobin 8.2 gm/dL (13.0-17.0); Lymph # (Auto) 2.4 th/mm3 (1.0-4.8); Lymph % (Auto) 18.4 % (9.0-44.0); Mean Corpuscular HGB Conc 34.2 % (32.0-36.0); Mean Corpuscular Hemoglobin 30.2 pg (27.0-34.0); Mean Corpuscular Volume 88.3 fL (80.0-100.0); Mean Platelet Volume 6.7 fL (7.0-11.0); Mono # (Auto) 0.8 th/mm3 (0.0-0.9); Mono % (Auto) 6.4 % (0.0-8.0); Neut # (Auto) 9.3 th/mm3 (1.8-7.7); Platelet Count 222 th/mm3 (150-450); Red Blood Count 2.71 mil/mm3 (4.50-5.90); Red Cell Distribution Width 18.8 % (11.6-17.2); White Blood Count 12.9 th/mm3 (4.0-11.0)
[2018-06-19] MEDS: Calcium Carbonate 500 MG Tablet PO SCH ×2 (09:11→20:15)
[2018-06-19] MEDS: Senna/Docusate Sodium 8.6/50 MG Tablet PO SCH ×2 (09:12→20:16)
[2018-06-19] MEDS: Furosemide 20 MG Tablet PO SCH ×2 (09:12→18:08)
[2018-06-19] MEDS: Famotidine PF Inj 20 MG/2 ML Vial IV.PUSH SCH ×2 (09:13→20:15)
[2018-06-19] MEDS: Sodium Chloride 0.9% 2 ML Flush BID IV.FLUSH SCH ×2 (09:13→20:15)
--- NOTE | 2018-06-19 11:40 | P.PNVS ---
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 Wound VAC in place It should be noted that the time of surgery patient had purulent drainage from the proximal portion of the amputation so will take a few days before patient is ready for any further surgery In the best case scenario will undergo washout of the stump and closure on Thursday but depending on what it looks like I may delay the final closure for another few days after that In the meantime patient can be safely extubated and transferred to floor when stable 06/05/2018 Patient status post guillotine amputation of the right foot Considering the amount of infection gas gangrene and purulent drainage wound VAC will remain on for next few days Will likely washout the change wound VAC on Thursday and then go ahead and closed the incision probably around Thursday06/06/2018 Considering the amount of purulent drainage and degree of infection and gas gangrene I believe it is probably leonard to postpone final closure until at least Thursday Patient should have a washout of the stump at the bedside the new wound VAC placement tomorrow 06/07/2018 Wound VAC changed today Amputation site appears to be much housecleaner floor Will likely closed the incision on Thursday Nothing to add at this time 06/08/2018 Patient had not had a change of wound VAC yet Wound care has been consulted but I do not know why the wound VAC was not changed Will now postpone final surgery until but wound VAC has to be changed and wound washed out today For closure of the BKA stump on Thursday06/10/2018 Patient will have serial wound vacs changed as ordered and by next the drainage and everything should be resolved to the point that patient can have closure of the BKA stump This is a unusually heavily infected purulent tissue of the calf and I do not want to close this before I am sure that is going to heal nicely and not result in a new abscess 06/11/2018 Patient stable Wound VAC changed and grateful to wound care team doing such excellent job Will likely take patient to the operating room or Thursday for hopefully a second stage procedure and closure 06/16/18 Stump appears clean, no more drainage For washout and closure tomorrow 06/17/2018 Patient taken to the operating room for washout and closure of the right BKA stump. Patient underwent amputation at the higher BKA level as planned and flap was created and the time noticed that there is more drainage from the area of the medial gastrocnemius muscle and about 100 cc of thick purulent material is extracted this area is completely opened irrigated with copious amount of saline and a new wound VAC placed At this point have no choice but to continue the wound VAC therapy before I can close this and will periodically see how patient does. Eventually we will close BK stump but in face of continued purulence he will have to be postponed for at least another week if not more 06/18/2018 Patient is status post amputation of the right leg with open stump and wound VAC Is noted during the surgery patient still had about 100 cc of isabella pus in the area of medial gastrocnemius muscle and this whole area has been opened up. Wound VAC on suction and expect a lot of drainage from this Hemoglobin 7 g/dL this morning we will transfuse 2 units PRBC Continue wound VAC changes as previously directed and hopefully by will take patient back to the operating room for another washout and hopefully closure of the stump. 06/19/2018 Wound VAC on the right BKA stump in place Hemoglobin remains stable after transfusion We will continue the wound VAC at least through this week and by the end of week I may decide to close the stump or even wait until next week for once is closed I want to minimize the chance of this getting infected Objective Vital Signs / I&O: Vital Signs 06/18/18 12:00 06/18/18 12:48 06/18/18 13:10 Temperature 97.4 F L 97.4 F L 97.6 F Pulse Rate 94 H 95 H 95 H Respiratory Rate 18 18 18 Blood Pressure 115/75 115/75 139/93 H Pulse Oximetry 93 L 93 L 95 06/18/18 13:15 06/18/18 16:00 06/18/18 17:26 Temperature 97.4 F L 97.5 F L 97.5 F L Pulse Rate 97 H 96 H 96 H Respiratory Rate 18 18 18 Blood Pressure 151/94 H 136/85 125/86 Pulse Oximetry 96 93 L 94 L 06/18/18 17:42 06/18/18 20:00 06/19/18 00:00 Temperature 97.5 F L 97.7 F 97.4 F L Pulse Rate 97 H 95 H 90 Respiratory Rate 18 15 18 Blood Pressure 132/88 125/75 121/86 Pulse Oximetry 94 L 93 L 94 L 06/19/18 04:00 06/19/18 08:00 Temperature 99.1 F Pulse Rate 89 91 H Respiratory Rate 16 16 Blood Pressure 148/90 H Pulse Oximetry 94 L Intake & Output 06/18/18 06/19/18 06/19/18 18:59 06:59 18:59 Intake Total 1240 / 1240 1105 / 1105 50 / 50 Output Total 750 / 750 1000 / 1000 Balance 490 / 490 105 / 105 50 / 50 Weight 99.5 kg Intake: IV 865 / 865 50 / 50 Zosyn 3.375 GM Premix 50 ML @ 100 / 100 50 / 50 100 mls/hr IV.SIG Q6H LINDA Rx#: [id number] NS Inj 250 ML @ 15 mls/hr IV. 250 / 250 SIG ONCE LINDA Rx#:[id number] Vancomycin Inj 1,500 MG In NS 515 / 515 Inj 500 ML @ 250 mls/hr IV.SIG Q48H LINDA Rx#:[id number] Oral 840 / 840 240 / 240 Intake (Blood Product) Amt 400 / 400 Rbc As-3 Leukoreduced Unit 400 / 400 [id number] Rbc As-3 Leukoreduced Unit 0 / 0 [id number] Output: Urine 750 / 750 1000 / 1000 Other: Mode Setting R BKA stump Continuous Right BKA stump Continuous Continuous Continuous Sacrum Continuous Continuous # Incontinent Voids 3 Date of Last Bowel Movement 06/17/18 06/17/18 06/17/18 # Bowel Movements 0 # Incontinent Bowel Movements 2 Laboratory Results - last 24 hr 06/03/18 06/17/18 06/18/18 00:20 02:09 20:27 WBC RBC Hgb Hct MCV MCH MCHC RDW Plt Count MPV Neut % (Auto) Lymph % (Auto) [place] % (Auto) Eos % (Auto) Baso % (Auto) Neut # (Auto) Lymph # (Auto) [place] # (Auto) Eos # (Auto) Baso # (Auto) WBC Differential Differential Comment POC Glucose 151 H Blood Type O Negative Blood Type Recheck Not needed Antibody Screen Negative MTS Gel Crossmatch See Detail See Detail 06/19/18 06/19/18 07:23 07:49 WBC 12.9 H RBC 2.71 L Hgb 8.2 L Hct 23.9 L MCV 88.3 D MCH 30.2 MCHC 34.2 RDW 18.8 H Plt Count 222 MPV 6.7 L Neut % (Auto) 72.0 H Lymph % (Auto) 18.4 [place] % (Auto) 6.4 Eos % (Auto) 2.1 Baso % (Auto) 1.1 Neut # (Auto) 9.3 H Lymph # (Auto) 2.4 [place] # (Auto) 0.8 Eos # (Auto) 0.3 Baso # (Auto) 0.1 WBC Differential . Differential Comment Auto diff final POC Glucose 91 Blood Type Blood Type Recheck Antibody Screen MTS Gel Crossmatch Microbiology 06/17/18 12:07 Gram Stain - Final Wound - Leg Wound Culture - Preliminary No growth in 48 hours 06/17/18 12:07 Fungal Smear - Final Wound - Leg No fungal elements seen 06/17/18 12:07 Acid Fast Bacilli Smear - Final Wound - Leg No acid fast bacilli seen
--- NOTE | 2018-06-19 11:55 | P.PNIM ---
Subjective Interval history: Follow-up right higher BKA, acute anemia post op s/p blood transfusion x 2 units , MRSA, AKA, diabetes type 2, CHF, and generalized edema. Patient seen and examined, lying in bed, c/o pain at 10/10 on the right leg. Encourage to take pain medication specially before rehab. Informed patient he can have morphine in between if needed. Discussed blood results H/H improved after the blood transfusion. Patient denies any diarrhea today, had some yesterday/last night. Patient denies any nausea or vomiting, denies any fever or chills. Physical Exam Vital signs: Vital Signs 06/18/18 12:00 06/18/18 12:48 06/18/18 13:10 Temperature 97.4 F L 97.4 F L 97.6 F Pulse Rate 94 H 95 H 95 H Respiratory Rate 18 18 18 Blood Pressure 115/75 115/75 139/93 H Pulse Oximetry 93 L 93 L 95 06/18/18 13:15 06/18/18 16:00 06/18/18 17:26 Temperature 97.4 F L 97.5 F L 97.5 F L Pulse Rate 97 H 96 H 96 H Respiratory Rate 18 18 18 Blood Pressure 151/94 H 136/85 125/86 Pulse Oximetry 96 93 L 94 L 06/18/18 17:42 06/18/18 20:00 06/19/18 00:00 Temperature 97.5 F L 97.7 F 97.4 F L Pulse Rate 97 H 95 H 90 Respiratory Rate 18 15 18 Blood Pressure 132/88 125/75 121/86 Pulse Oximetry 94 L 93 L 94 L 06/19/18 04:00 06/19/18 08:00 Temperature 99.1 F Pulse Rate 89 91 H Respiratory Rate 16 16 Blood Pressure 148/90 H Pulse Oximetry 94 L Intake & Output 06/18/18 06/19/18 06/19/18 18:59 06:59 18:59 Intake Total 1240 / 1240 1105 / 1105 50 / 50 Output Total 750 / 750 1000 / 1000 Balance 490 / 490 105 / 105 50 / 50 Weight 99.5 kg Intake: IV 865 / 865 50 / 50 Zosyn 3.375 GM Premix 50 ML @ 100 / 100 50 / 50 100 mls/hr IV.SIG Q6H LINDA Rx#: [id number] NS Inj 250 ML @ 15 mls/hr IV. 250 / 250 SIG ONCE LINDA Rx#:[id number] Vancomycin Inj 1,500 MG In NS 515 / 515 Inj 500 ML @ 250 mls/hr IV.SIG Q48H LINDA Rx#:[id number] Oral 840 / 840 240 / 240 Intake (Blood Product) Amt 400 / 400 Rbc As-3 Leukoreduced Unit 400 / 400 [id number] Rbc As-3 Leukoreduced Unit 0 / 0 [id number] Output: Urine 750 / 750 1000 / 1000 Other: Mode Setting R BKA stump Continuous Right BKA stump Continuous Continuous Continuous Sacrum Continuous Continuous # Incontinent Voids 3 Date of Last Bowel Movement 06/17/18 06/17/18 06/17/18 # Bowel Movements 0 # Incontinent Bowel Movements 2 Narrative: GENERAL: Well-developed, well-nourished, alert and oriented x3, with no apparent distress SKIN: Warm and dry. Right below the knee stump dressed with woundvac, intact draining sanguinous no drainage noted. HEAD: Atraumatic. Normocephalic. EYES: Pupils equal and round. No scleral icterus. No injection or drainage. ENT: No nasal bleeding or discharge. Mucous membranes pink and moist. NECK: Trachea midline. No JVD. CARDIOVASCULAR: Regular rate and rhythm. lateral Hips, thigh, Bilateral lower extremity edema 1 + pitting, scrotal edema. RESPIRATORY: No accessory muscle use. Clear to auscultation. Breath sounds equal bilaterally. GASTROINTESTINAL: Abdomen soft, non-tender, nondistended. Hepatic and splenic margins not palpable. MUSCULOSKELETAL: Extremities without clubbing, cyanosis, or edema. No obvious deformities. right LE BKA stump dressed with wound VAC NEUROLOGICAL: Awake and alert. No obvious cranial nerve deficits. Motor grossly within normal limits. Generalized weakness, moves all 4 extremities. Right lower extremity with limited range of motion. normal speech. PSYCHIATRIC: Appropriate mood and affect; insight and judgment normal. - Urinary Catheter Management Indwelling Urethral Catheter Cath placed during this visit: yes, but has since been removed by the nurse Reason for continuing: Decision to DC catheter Insertion date: 06/09/18 Insertion time: 13:59 Removal date: 06/09/18 Removal time: 14:57 Results - Labs CBC & Chem 7: 06/19/18 07:23 06/18/18 05:58 Laboratory Results - last 24 hr 06/03/18 06/17/18 06/18/18 00:20 02:09 20:27 WBC RBC Hgb Hct MCV MCH MCHC RDW Plt Count MPV Neut % (Auto) Lymph % (Auto) [place] % (Auto) Eos % (Auto) Baso % (Auto) Neut # (Auto) Lymph # (Auto) [place] # (Auto) Eos # (Auto) Baso # (Auto) WBC Differential Differential Comment POC Glucose 151 H Blood Type O Negative Blood Type Recheck Not needed Antibody Screen Negative MTS Gel Crossmatch See Detail See Detail 06/19/18 06/19/18 07:23 07:49 WBC 12.9 H RBC 2.71 L Hgb 8.2 L Hct 23.9 L MCV 88.3 D MCH 30.2 MCHC 34.2 RDW 18.8 H Plt Count 222 MPV 6.7 L Neut % (Auto) 72.0 H Lymph % (Auto) 18.4 [place] % (Auto) 6.4 Eos % (Auto) 2.1 Baso % (Auto) 1.1 Neut # (Auto) 9.3 H Lymph # (Auto) 2.4 [place] # (Auto) 0.8 Eos # (Auto) 0.3 Baso # (Auto) 0.1 WBC Differential . Differential Comment Auto diff final POC Glucose 91 Blood Type Blood Type Recheck Antibody Screen MTS Gel Crossmatch Microbiology 06/17/18 12:07 Wound - Leg Gram Stain - Final 06/17/18 12:07 Wound - Leg Wound Culture - Preliminary No growth in 48 hours 06/17/18 12:07 Wound - Leg Fungal Smear - Final No fungal elements seen 06/17/18 12:07 Wound - Leg Acid Fast Bacilli Smear - Final No acid fast bacilli seen Assessment and Plan - Assessment (1) Status post below knee amputation Code(s): Z89.519 - Acquired absence of unspecified leg below knee Status: Acute (2) Gas gangrene Code(s): A48.0 - Gas gangrene Status: Acute (3) CHF (congestive heart failure) Code(s): I50.9 - Heart failure, unspecified Status: Acute (4) YOLY (acute kidney injury) Code(s): N17.9 - Acute kidney failure, unspecified Status: Acute (5) Sepsis Code(s): A41.9 - Sepsis, unspecified organism Status: Acute - Plan 53-year-old male admitted with acute septic shock, respiratory failure status post extubation and BKA. Patient has been receiving ICU care and stabilized for transfer to the hospitalist service in the medical surgical floor. Septic shock/leukocytosis s/p right BKA/Gas Gangrene of the right foot 06/03/18 Status post higher BKA and flap today 06/17/18 -Broad-spectrum antibiotic with vancomycin and Zosyn, -ID Consulted, Multiple blood cultures with E. coli, wound culture with E. coli , gram-negative ankur, MRSA -Status post I&D and debridement, status post BKA by Dr. Quiles 06/03/18 and higher BKA on 06/17/18 -Septic Shock resolved -Continue Alcova and morphine IV as needed for breakthrough pain. -s/p Higher BKA 06/17/18-Vascular surgery, plan for stump closure for at least another week or more we will continue wound VAC for now -Right BKA stump with wound vac improved suction and drainage, wound care for wound VAC maintenance, assessment of dressing, discussed with nursing Acute Anemia on chronic, likely due to post op blood loss and moderate wound vac drainage -hold heparin due to bleeding -transfused 2 units PRBC yesterday with Lasix in between -monitor CBC, H/H was 6.4/19.2, today 8.2/23.9 after blood transfusion Post Respiratory failure -Extubated, breathing comfortably i n room air -No sob, no upper airway problems. CHF/generalized edema generalized edema, Hip, Thighs, bilateral lower extremities -BNP 739 -CXray with Bilateral effusion and consolidation, on Broad-spectrum antibiotic with vancomycin and Zosyn, -continue Lasix, continue KCL replacement -monitor BMP Blood loss anemia -s/p 3 units of PRBC -Monitor H&H and transfuse to keep hemoglobin above 7 -h/h 9.0/27.3 Acute kidney injury/hypokalemia/hypocalcemia Recent Renal Pathology at [facility]: Impression: diffuse and nodular diabetic glomerulosclerosis, moderately advanced and moderate arteriosclerosis and hyalinosis arteriosclerosis -KCL and calcium replaced -Strict I's and O's. IV fluid hydration -Monitor electrolytes and creatinine level -Creatinine has improved: 1.29 on 10/5, urine output adequate. Stabilized Diabetes mellitus Type 2 -blood glucose fair controlled - diabetic diet -Insulin sliding scale DVT:Teds SCDs GI prophylaxis:-Pepcid Code Status: full code Discussed Condition With: patient, nurse and MDR Discharge Planning: cut and cover line worker consult for discharge planning when cleared with ID and surgeon/ after closure of stump next week or so (3) CHF (congestive heart failure) Qualifiers: Heart failure type: unspecified Heart failure chronicity: acute on chronic Qualified Code(s): I50.9 - Heart failure, unspecified (5) Sepsis Qualifiers: Sepsis type: sepsis due to unspecified organism Qualified Code(s): A41.9 - Sepsis, unspecified organism
[2018-06-19] MEDS: Morphine Inj 4 MG/ML Vial IV.PUSH PRN ×3 (11:59→22:21)
[2018-06-20] MEDS: Piperacil/Tazo 3.375 GM Premix 50 ML IV.SIG SCH ×4 (03:03→21:17)
[2018-06-20] MEDS: Morphine Inj 4 MG/ML Vial IV.PUSH PRN ×3 (03:03→23:57)
[2018-06-20 06:36] LABS: Hematocrit 22.9 % (39.0-51.0); Hemoglobin 7.8 gm/dL (13.0-17.0); Mean Corpuscular HGB Conc 33.9 % (32.0-36.0); Mean Corpuscular Hemoglobin 29.8 pg (27.0-34.0); Mean Corpuscular Volume 87.8 fL (80.0-100.0); Mean Platelet Volume 6.5 fL (7.0-11.0); Platelet Count 223 th/mm3 (150-450); Red Blood Count 2.61 mil/mm3 (4.50-5.90); Red Cell Distribution Width 20.1 % (11.6-17.2)
[2018-06-20] MEDS: Calcium Carbonate 500 MG Tablet PO SCH ×2 (08:44→21:14)
[2018-06-20] MEDS: Famotidine PF Inj 20 MG/2 ML Vial IV.PUSH SCH ×2 (08:44→21:15)
[2018-06-20] MEDS: Furosemide 20 MG Tablet PO SCH ×2 (08:44→18:07)
[2018-06-20] MEDS: Sodium Chloride 0.9% 2 ML Flush BID IV.FLUSH SCH ×2 (08:45→21:18)
[2018-06-20] MEDS: Insulin NovoLOG Aspart Correctional Sugar Inj SQ SCH ×4 (08:45→20:33)
--- NOTE | 2018-06-20 11:00 | P.PNPOD ---
Subjective Interval history: Patient seen bedside resting comfortably. Denies any nausea vomiting fevers or chills. Reports pain is well controlled. Physical Exam Vital signs: Vital Signs 06/19/18 12:00 06/19/18 16:00 06/19/18 20:00 Temperature 97.2 F L 97.4 F L 97.6 F Pulse Rate 99 H 96 H 99 H Respiratory Rate 20 20 18 Blood Pressure 131/85 133/91 H 130/94 H Pulse Oximetry 94 L 90 L 91 L 06/20/18 00:00 06/20/18 04:00 06/20/18 08:00 Temperature 97.6 F 97.6 F Pulse Rate 92 H 92 H 93 H Respiratory Rate 18 20 Blood Pressure 134/86 133/97 H Pulse Oximetry 91 L 94 L Intake & Output 06/19/18 06/20/18 06/20/18 18:59 06:59 18:59 Intake Total 460 / 460 100 / 100 Output Total 300 / 300 1100 / 1100 Balance 160 / 160 -1000 / -1000 Weight 98.1 kg Intake: IV 100 / 100 100 / 100 Zosyn 3.375 GM Premix 50 ML @ 100 / 100 100 / 100 100 mls/hr IV.SIG Q6H LINDA Rx#: [id number] Oral 360 / 360 Output: Urine 200 / 200 1100 / 1100 Wound Vac Amount 100 / 100 Right BKA stump 100 / 100 Other: Mode Setting Right BKA stump Continuous Continuous Sacrum Continuous Date of Last Bowel Movement 06/17/18 06/19/18 # Bowel Movements 1 Narrative: Left plantar heel ulceration noted with no hyperkeratotic borders and fibrotic eschar base. No surrounding edema or erythema noted. Heel offloaded with towel. Palpable DP PT pulses left lower extremity. Capillary refill time intact to digits x5 left foot. 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 Medications and Allergies Active Medications: Active Medications Acetaminophen (Tylenol) 650 mg PO Q4H PRN PRN Reason: Temp > 100.4 Hydrocodone Bitart/Acetaminophen ([place] 7.5/325) 1 tab PO Q4H PRN PRN Reason: PAIN SCALE 6 TO 10 Last Admin: 06/20/18 08:44 Dose: 1 tab Al Hydroxide/Mg Hydroxide (Milk Of Magnesia Liq) 30 ml PO Q12H PRN PRN Reason: Mild Constipation Bisacodyl (Dulcolax Supp) 10 mg RECTAL DAILY PRN PRN Reason: SEVERE CONSITIPATION Calcium Carbonate (Oscal) 500 mg PO BID [facility] Last Admin: 06/20/18 08:44 Dose: 500 mg Collagenase (Santyl Oint) 1 applicatio TOPICAL DAILY [facility] Dextrose (D50w Vial) 50 ml IV.PUSH UNSCH PRN PRN Reason: PER HYPOGLYCEMIA PROTOCOL Famotidine (Pepcid Pf Inj) 20 mg IV.PUSH Q12HR [facility] Last Admin: 06/20/18 08:44 Dose: 20 mg Furosemide (Lasix) 20 mg PO BID@0900,1800 [facility] Last Admin: 06/20/18 08:44 Dose: 20 mg Glucagon (Glucagon Inj) 1 mg OTHER UNSCH PRN PRN Reason: for Hypoglycemia Protocol Piperacillin/Tazobactam/Dextrose (Zosyn 3.375 Gm Premix) 50 mls @ 100 mls/hr IV.SIG Q6H [facility] Last Admin: 06/20/18 08:45 Dose: 100 mls/hr Vancomycin HCl 1,500 mg/ (Sodium Chloride) 515 mls @ 250 mls/hr IV.SIG Q48H [facility] Last Infusion: 06/19/18 01:28 Dose: Infused Insulin Aspart (Novolog Insulin Correctional Sugar Inj) 0 unit SQ ACHS [facility]; Protocol Last Admin: 06/20/18 08:45 Dose: Not Given Lactulose (Lactulose Liq) 30 ml PO DAILY PRN PRN Reason: SEVERE CONSITIPATION Miscellaneous Information ([facility] Ordered Lab Info) 0 each OTHER ONCE ONE Stop: 06/20/18 20:46 Morphine Sulfate (Morphine Inj) 3 mg IV.PUSH Q4H PRN PRN Reason: BREAKTHROUGH PAIN Last Admin: 06/20/18 03:03 Dose: 3 mg Ondansetron HCl (Zofran Inj) 4 mg IV.PUSH Q6H PRN PRN Reason: NAUSEA OR VOMITING Pharmacy Profile Note (Vancomycin Consult Pharmacy) 1 each OTHER UNSCH PRN PRN Reason: Pharmacy to dose Potassium Chloride (K-Dur) 20 meq PO BID [facility] Last Admin: 06/20/18 08:44 Dose: 20 meq Senna/Docusate Sodium (Bee-Colace) 1 tab PO BID [facility] Last Admin: 06/19/18 20:16 Dose: Not Given Sennosides (Senokot) 17.2 mg PO Q12H PRN PRN Reason: Moderate Constipation Sodium Chloride (Ns Flush) 2 ml IV.FLUSH BID [facility] Last Admin: 06/20/18 08:45 Dose: 2 ml Sodium Chloride (Ns Flush) 2 ml IV.FLUSH PRN PRN PRN Reason: FLUSH AFTER USING IV ACCESS Terbutaline Sulfate (Brethine Inj) 1 mg SQ UNSCH PRN PRN Reason: For Extravasation Vancomycin HCl (Vancomycin Po) 250 mg PO QID [facility] Last Admin: 06/20/18 08:43 Dose: 250 mg Allergies Allergy/AdvReac Type Severity Reaction Status Date / Time No Known Allergies Allergy Unverified 06/02/18 15:19 Home Medications Medication Instructions Recorded Confirmed Type aspirin 81 mg PO DAILY 06/02/18 06/02/18 History atorvastatin [Lipitor] 40 mg PO DAILY 06/02/18 06/02/18 History bumetanide 2 mg PO DAILY 06/02/18 06/02/18 History carvedilol [Coreg] 25 mg PO BID 06/02/18 06/02/18 History chlorthalidone 25 mg PO DAILY 06/02/18 06/02/18 History folic acid 1 mg PO DAILY 06/02/18 06/02/18 History lisinopril 5 mg PO DAILY 06/02/18 06/02/18 History Results - Labs CBC & Chem 7: 06/20/18 06:10 06/18/18 05:58 Laboratory Results - last 24 hr 06/19/18 06/19/18 06/19/18 11:55 17:02 20:13 WBC RBC Hgb Hct MCV MCH MCHC RDW Plt Count MPV POC Glucose 98 109 112 H 06/20/18 06/20/18 06:10 07:36 WBC 11.0 RBC 2.61 L Hgb 7.8 L Hct 22.9 L MCV 87.8 MCH 29.8 MCHC 33.9 RDW 20.1 H Plt Count 223 MPV 6.5 L POC Glucose 103 Microbiology 06/17/18 12:07 Wound - Leg Gram Stain - Final 06/17/18 12:07 Wound - Leg Wound Culture - Final No growth in 72 hours (aerobically and anaerobically ) Assessment and Plan - Assessment (1) Gangrene Code(s): I96 - Gangrene, not elsewhere classified Status: Acute (2) Gas gangrene of foot Code(s): A48.0 - Gas gangrene Status: Acute (3) Sepsis Code(s): A41.9 - Sepsis, unspecified organism Status: Acute - Plan 53-year-old male status post below the knee amputation to right lower extremity with left plantar heel ulceration Daily wound care to be performed by nursing Wound care orders placedplease apply Santyl with moist to dry dressing to plantar heel ulceration daily We will continue to monitor progress of left heel ulcer while patient is in house Patient to follow-up with foundation director/wound care once he is discharged, please discharge with Santyl (3) Sepsis Qualifiers: Sepsis type: sepsis due to unspecified organism Qualified Code(s): A41.9 - Sepsis, unspecified organism
[2018-06-20] MEDS: Senna/Docusate Sodium 8.6/50 MG Tablet PO SCH ×2 (13:22→21:15)
[2018-06-20] MEDS: Collagenase Oint 30 GM Tube TOPICAL SCH (13:24)
--- NOTE | 2018-06-20 16:12 | P.PNIM ---
Subjective Interval history: Follow-up acute on chronic anemia, status post right BKA x2, MRSA, CHF, AKA, C. difficile, diabetes type 2, generalized edema. Patient seen and examined laying in bed, still complaining of pain on the right leg at 7 out of 10. Patient stated better with morphine, stated pain down to 2 or 3 after the morphine. Patient encouraged to take pain medication at this time however this , discussed to rule down later. Patient denies any diarrhea today, had one formed stool today. Patient denies any fever or chills, denies any headache or dizziness, denies any nausea or vomiting. Physical Exam Vital signs: Vital Signs 06/19/18 20:00 06/20/18 00:00 06/20/18 04:00 Temperature 97.6 F 97.6 F Pulse Rate 99 H 92 H 92 H Respiratory Rate 18 18 Blood Pressure 130/94 H 134/86 Pulse Oximetry 91 L 91 L 06/20/18 08:00 06/20/18 12:00 Temperature 97.6 F 97.7 F Pulse Rate 93 H 94 H Respiratory Rate 20 20 Blood Pressure 133/97 H 144/95 H Pulse Oximetry 94 L 94 L Intake & Output 06/19/18 06/20/18 06/20/18 18:59 06:59 18:59 Intake Total 460 / 460 100 / 100 50 / 50 Output Total 300 / 300 1100 / 1100 Balance 160 / 160 -1000 / -1000 50 / 50 Weight 98.1 kg Intake: IV 100 / 100 100 / 100 50 / 50 Zosyn 3.375 GM Premix 50 ML @ 100 / 100 100 / 100 50 / 50 100 mls/hr IV.SIG Q6H LINDA Rx#: [id number] Oral 360 / 360 Output: Urine 200 / 200 1100 / 1100 Wound Vac Amount 100 / 100 Right BKA stump 100 / 100 Other: Mode Setting Right BKA stump Continuous Continuous Sacrum Continuous Date of Last Bowel Movement 06/17/18 06/19/18 # Bowel Movements 1 Narrative: GENERAL: Well-developed, well-nourished, alert and oriented x3, with no apparent distress SKIN: Warm and dry. Right below the knee stump dressed with woundvac, intact draining sanguinous on wound VAC. HEAD: Atraumatic. Normocephalic. EYES: Pupils equal and round. No scleral icterus. No injection or drainage. ENT: No nasal bleeding or discharge. Mucous membranes pink and moist. NECK: Trachea midline. No JVD. CARDIOVASCULAR: Regular rate and rhythm. lateral Hips, thigh, Bilateral lower extremity edema 1 + pitting, scrotal edema. RESPIRATORY: No accessory muscle use. Clear to auscultation. Breath sounds equal bilaterally. GASTROINTESTINAL: Abdomen soft, non-tender, nondistended. Hepatic and splenic margins not palpable. MUSCULOSKELETAL: Extremities without clubbing, cyanosis, or edema. No obvious deformities. right LE BKA stump dressed with wound VAC NEUROLOGICAL: Awake and alert. No obvious cranial nerve deficits. Motor grossly within normal limits. Generalized weakness, moves all 4 extremities. Right lower extremity with limited range of motion. normal speech. PSYCHIATRIC: Appropriate mood and affect; insight and judgment normal. - Urinary Catheter Management Indwelling Urethral Catheter Cath placed during this visit: yes, but has since been removed by the nurse Reason for continuing: Decision to DC catheter Insertion date: 06/09/18 Insertion time: 13:59 Removal date: 06/09/18 Removal time: 14:57 Results - Labs CBC & Chem 7: 06/20/18 06:10 06/18/18 05:58 Laboratory Results - last 24 hr 06/19/18 06/19/18 06/20/18 17:02 20:13 06:10 WBC 11.0 RBC 2.61 L Hgb 7.8 L Hct 22.9 L MCV 87.8 MCH 29.8 MCHC 33.9 RDW 20.1 H Plt Count 223 MPV 6.5 L POC Glucose 109 112 H 06/20/18 06/20/18 07:36 13:24 WBC RBC Hgb Hct MCV MCH MCHC RDW Plt Count MPV POC Glucose 103 90 Microbiology 06/17/18 12:07 Wound - Leg Gram Stain - Final 06/17/18 12:07 Wound - Leg Wound Culture - Final No growth in 72 hours (aerobically and anaerobically ) Assessment and Plan - Assessment (1) Status post below knee amputation Code(s): Z89.519 - Acquired absence of unspecified leg below knee Status: Acute (2) Gas gangrene Code(s): A48.0 - Gas gangrene Status: Acute (3) CHF (congestive heart failure) Code(s): I50.9 - Heart failure, unspecified Status: Acute (4) YOLY (acute kidney injury) Code(s): N17.9 - Acute kidney failure, unspecified Status: Acute (5) Sepsis Code(s): A41.9 - Sepsis, unspecified organism Status: Acute - Plan 53-year-old male admitted with acute septic shock, respiratory failure status post extubation and BKA. Patient has been receiving ICU care and stabilized for transfer to the hospitalist service in the medical surgical floor. Septic shock/leukocytosis/respiratory failure with intubation s/p right BKA/Gas Gangrene of the right foot 06/03/18 Status post higher BKA and flap today 06/17/18 -Broad-spectrum antibiotic with vancomycin and Zosyn, -ID Consulted, Multiple blood cultures with E. coli, wound culture with E. coli , gram-negative ankur, MRSA on 06/02/18 -Status post I&D and debridement, status post BKA by Dr. Quiles 06/03/18 and higher BKA on 06/17/18 -Septic Shock resolved -Continue [place] and morphine IV as needed for breakthrough pain. -s/p Higher BKA 06/17/18-Vascular surgery, plan for stump closure for at least another week or more we will continue wound VAC for now -Right BKA stump with wound vac improved suction and drainage, wound care for wound VAC maintenance, assessment of dressing, discussed with nursing -Wound/leg culture no growth in 72 hours on 06/17/18, fungal culture pending, mycobacterial culture pending C. difficile With diarrhea, Isolation -Continue Vanco p.o. -ID following Acute Anemia on chronic, Blood loss anemia likely due to post op blood loss and moderate wound vac drainage -hold heparin due to bleeding -transfused 2 units PRBC yesterday with Lasix in between -monitor CBC, H/H was 6.4/19.2, today 7.8/22.9, follow H&H and transfuse to keep hemoglobin greater than 7 CHF/generalized edema generalized edema, Hip, Thighs, bilateral lower extremities -BNP 739 -CXray with Bilateral effusion and consolidation, on Broad-spectrum antibiotic with vancomycin and Zosyn, -continue Lasix, continue KCL replacement -monitor BMP Acute kidney injury/hypokalemia/hypocalcemia Recent Renal Pathology at [facility]: Impression: diffuse and nodular diabetic glomerulosclerosis, moderately advanced and moderate arteriosclerosis and hyalinosis arteriosclerosis -KCL and calcium replaced -Strict I's and O's. IV fluid hydration -Monitor electrolytes and creatinine level -Creatinine has improved: 1.29 on 06/18, urine output adequate. 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
[2018-06-20] MEDS ORDERED: Pharmacy Ordered Lab Info OTHER ONE (20:45)
[2018-06-20] MEDS: Vancomycin Inj 1,500 MG in Sodium Chlor 0.9% Inj 500 ML IV.SIG SCH (23:57)
[2018-06-21] MEDS: Piperacil/Tazo 3.375 GM Premix 50 ML IV.SIG SCH ×4 (03:40→21:05)
[2018-06-21] MEDS: Morphine Inj 4 MG/ML Vial IV.PUSH PRN ×2 (03:40→14:59)
[2018-06-21] MEDS: Sodium Chloride 0.9% 2 ML Flush PRN IV.FLUSH ×2 (03:42)
[2018-06-21 07:00] LABS: Baso # (Auto) 0.1 th/mm3 (0.0-0.2); Baso % (Auto) 1.6 % (0.0-2.0); Eos # (Auto) 0.3 th/mm3 (0.0-0.4); Eos % (Auto) 6.8 % (0.0-4.0); Hemoglobin 13.5 gm/dL (13.0-17.0); Lymph # (Auto) 1.8 th/mm3 (1.0-4.8); Lymph % (Auto) 38.8 % (9.0-44.0); Mean Corpuscular HGB Conc 32.9 % (32.0-36.0); Mean Corpuscular Hemoglobin 28.5 pg (27.0-34.0); Mean Corpuscular Volume 86.6 fL (80.0-100.0); Mean Platelet Volume 8.6 fL (7.0-11.0); Mono # (Auto) 0.6 th/mm3 (0.0-0.9); Neut # (Auto) 1.9 th/mm3 (1.8-7.7); Neut % (Auto) 39.8 % (16.0-70.0); Platelet Count 197 th/mm3 (150-450); Red Blood Count 4.73 mil/mm3 (4.50-5.90); Red Cell Distribution Width 17.5 % (11.6-17.2); White Blood Count 4.7 th/mm3 (4.0-11.0)
[2018-06-21 07:28] LABS: Calcium 8.9 mg/dL (8.5-10.1); Carbon Dioxide 28.1 meq/L (21.0-32.0)
[2018-06-21] MEDS: Calcium Carbonate 500 MG Tablet PO SCH ×2 (09:41→21:02)
[2018-06-21] MEDS: Senna/Docusate Sodium 8.6/50 MG Tablet PO SCH ×2 (09:41→21:05)
[2018-06-21] MEDS: Famotidine PF Inj 20 MG/2 ML Vial IV.PUSH SCH ×2 (09:42→21:04)
[2018-06-21] MEDS: Sodium Chloride 0.9% 2 ML Flush BID IV.FLUSH SCH ×2 (09:42→21:00)
[2018-06-21] MEDS: Collagenase Oint 30 GM Tube TOPICAL SCH ×2 (09:59→16:35)
[2018-06-21] MEDS: Furosemide 20 MG Tablet PO SCH ×2 (09:59→18:15)
[2018-06-21] MEDS: Insulin NovoLOG Aspart Correctional Sugar Inj SQ SCH ×4 (11:21→21:04)
--- NOTE | 2018-06-21 15:16 | P.PNIM ---
Subjective Interval history: 53-year-old male presented to emergency department today with complaints of shortness of breath, fatigue, and extensive draining edema of the lower extremities bilaterally. Per chart review his symptoms started 5 days ago and the swelling of his lower legs and feet have progressively gotten worse over the past 5 days. The patient also has had pain in the back of both lower extremities from the knees to the toes. He denied chest pain. He has a history of type-II diabetes mellitus and congestive heart failure. He has not taken any of his regular medications for the past 3 weeks due to financial limitations. During the examination in the emergency department he was found to have gangrene of the right foot and was emergently taken to operating room for an incision and drainage with debridement of foot and ankle. Postoperatively he remains intubated and was admitted to ICU for critical care management. SUBJ: s/p Incision drainage debridement foot ankle and distal leg, for gas gangrene. Remains in septic shock on [place]. Remains intubated sedated. Currently on vancomycin and Zosyn I have added clindamycin. Cultures and wound cultures pending . Vascular surgery consult also pending. Received 2 units PRBC for hemoglobin of 5.3 06/04/18: Patient had been weaned off all pressors. Wakes up easily follows commands. 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 WBC count remains elevated but renal function improving. Hemoglobin stable. Multiple blood cultures growing E. coli. Wound culture with E. coli, MRSA, gram-negative rods. Continue Zosyn and vancomycin 06/05: Remains off vasopressors. Alert and conversant. Encephalopathy clearing. Blood and wound organisms identified, antibiotic coverage appropriate. 06/06: Normotensive. Afebrile. Urine output acceptable. Septic picture largely over. Base deficit largely corrected. Blood sugar trending higher will convert to full diabetic diet. 10-7 Follow-up acute on chronic anemia, status post right BKA x2, MRSA, CHF, AKA , C. difficile, diabetes type 2, generalized edema. Patient seen and examined laying in bed, still complaining of pain on the right leg at 7 out of 10. Patient stated better with morphine, stated pain down to 2 or 3 after the morphine. Patient encouraged to take pain medication at this time however this , discussed to rule down later. Patient denies any diarrhea today, had one formed stool today. Patient denies any fever or chills, denies any headache or dizziness, denies any nausea or vomiting. 10 PATIENT TO HAVE REVISION ON RIGHT LE ON THURSDAY. DW SURGERY DR Etta MACIEL LABS CONTINUE CURRENT TREATMENTS SEEN SITTING ON SIDE OF BED Physical Exam Vital signs: Vital Signs 06/20/18 16:00 06/20/18 20:00 06/20/18 23:57 Temperature 97.8 F 97.4 F L Pulse Rate 97 H 101 H 97 H Respiratory Rate 20 18 Blood Pressure 145/94 H 135/92 H Pulse Oximetry 91 L 91 L 06/21/18 00:00 06/21/18 04:00 06/21/18 04:02 Temperature 98.0 F 97.6 F Pulse Rate 97 H 93 H 95 H Respiratory Rate 18 18 Blood Pressure 139/93 H 138/87 Pulse Oximetry 93 L 92 L 06/21/18 08:00 Temperature 97.9 F Pulse Rate 94 H Respiratory Rate 18 Blood Pressure 129/87 Pulse Oximetry 95 Intake & Output 06/20/18 06/21/18 06/21/18 18:59 06:59 18:59 Intake Total 580 / 580 615 / 615 50 / 50 Output Total 600 / 600 Balance 580 / 580 15 / 15 50 / 50 Weight 96.1 kg Intake: IV 100 / 100 615 / 615 50 / 50 Zosyn 3.375 GM Premix 50 ML @ 100 / 100 100 / 100 50 / 50 100 mls/hr IV.SIG Q6H LINDA Rx#: [id number] Vancomycin Inj 1,500 MG In NS 515 / 515 Inj 500 ML @ 250 mls/hr IV.SIG Q48H LINDA Rx#:[id number] Oral 480 / 480 Output: Urine 600 / 600 Other: Mode Setting Right BKA stump Continuous # Voids 1 Date of Last Bowel Movement 06/19/18 # Bowel Movements 0 Narrative: GENERAL: Well-developed, well-nourished, alert and oriented x3, with no apparent distress SKIN: Warm and dry. Right below the knee stump dressed with woundvac, intact draining sanguinous on wound VAC. HEAD: Atraumatic. Normocephalic. EYES: Pupils equal and round. No scleral icterus. No injection or drainage. ENT: No nasal bleeding or discharge. Mucous membranes pink and moist. NECK: Trachea midline. No JVD. CARDIOVASCULAR: Regular rate and rhythm. lateral Hips, thigh, Bilateral lower extremity edema 1 + pitting, scrotal edema. RESPIRATORY: No accessory muscle use. Clear to auscultation. Breath sounds equal bilaterally. GASTROINTESTINAL: Abdomen soft, non-tender, nondistended. Hepatic and splenic margins not palpable. MUSCULOSKELETAL: Extremities without clubbing, cyanosis, or edema. No obvious deformities. right LE BKA stump dressed with wound VAC NEUROLOGICAL: Awake and alert. No obvious cranial nerve deficits. Motor grossly within normal limits. Generalized weakness, moves all 4 extremities. Right lower extremity with limited range of motion. normal speech. PSYCHIATRIC: Appropriate mood and affect; insight and judgment normal. - PENIS SCROTAL AREA WITH SEVERE EDEMA - Urinary Catheter Management Indwelling Urethral Catheter Cath placed during this visit: yes, but has since been removed by the nurse Reason for continuing: Decision to DC catheter Insertion date: 06/09/18 Insertion time: 13:59 Removal date: 06/09/18 Removal time: 14:57 Results - Labs CBC & Chem 7: 06/21/18 05:43 06/21/18 05:43 Laboratory Results - last 24 hr 06/20/18 06/21/18 06/21/18 16:51 05:43 05:43 WBC 4.7 D RBC 4.73 Hgb 13.5 D Hct 41.0 MCV 86.6 MCH 28.5 MCHC 32.9 RDW 17.5 H D Plt Count 197 MPV 8.6 Neut % (Auto) 39.8 Lymph % (Auto) 38.8 [place] % (Auto) 13.0 H Eos % (Auto) 6.8 H Baso % (Auto) 1.6 Neut # (Auto) 1.9 Lymph # (Auto) 1.8 [place] # (Auto) 0.6 Eos # (Auto) 0.3 Baso # (Auto) 0.1 WBC Differential . Differential Comment Auto diff final Sodium 142 Potassium 4.0 Chloride 104 Carbon Dioxide 28.1 Anion Gap 10 BUN 18 Creatinine 1.50 H Estimated GFR 49 L POC Glucose 103 Random Glucose 75 Calcium 8.9 06/21/18 06/21/18 08:28 13:28 WBC RBC Hgb Hct MCV MCH MCHC RDW Plt Count MPV Neut % (Auto) Lymph % (Auto) [place] % (Auto) Eos % (Auto) Baso % (Auto) Neut # (Auto) Lymph # (Auto) [place] # (Auto) Eos # (Auto) Baso # (Auto) WBC Differential Differential Comment Sodium Potassium Chloride Carbon Dioxide Anion Gap BUN Creatinine Estimated GFR POC Glucose 117 H 110 Random Glucose Calcium - Imaging ITS Impressions Venous Doppler Study 06/02/18 15:46 CONCLUSION: 1. No sonographic evidence of lower extremity DVT. 2. Bilateral lower extremity subcutaneous edema. 3. Multiple lymph nodes seen in both groins, some of which are abnormally enlarged. Recommend clinical correlation. Foot X-Ray 06/02/18 15:52 CONCLUSION: Extensive subcutaneous air. No bone fracture or dislocation Chest X-Ray 06/15/18 00:00 CONCLUSION: Bilateral effusions and consolidation. Assessment and Plan - Assessment (1) Status post below knee amputation Code(s): Z89.519 - Acquired absence of unspecified leg below knee Status: Acute (2) Gas gangrene Code(s): A48.0 - Gas gangrene Status: Acute (3) CHF (congestive heart failure) Code(s): I50.9 - Heart failure, unspecified Status: Acute (4) YOLY (acute kidney injury) Code(s): N17.9 - Acute kidney failure, unspecified Status: Acute (5) Sepsis Code(s): A41.9 - Sepsis, unspecified organism Status: Acute - Plan 53-year-old male admitted with acute septic shock, respiratory failure status post extubation and BKA. Patient has been receiving ICU care and stabilized for transfer to the hospitalist service in the medical surgical floor. Septic shock/leukocytosis/respiratory failure with intubation s/p right BKA/Gas Gangrene of the right foot 06/03/18 Status post higher BKA and flap today 06/17/18 -Broad-spectrum antibiotic with vancomycin and Zosyn, -ID Consulted, Multiple blood cultures with E. coli, wound culture with E. coli , gram-negative ankur, MRSA on 06/02/18 -Status post I&D and debridement, status post BKA by Dr. Quiles 06/03/18 and higher BKA on 06/17/18 -Septic Shock resolved -Continue [place] and morphine IV as needed for breakthrough pain. -s/p Higher BKA 06/17/18-Vascular surgery, plan for stump closure for at least another week or more we will continue wound VAC for now -Right BKA stump with wound vac improved suction and drainage, wound care for wound VAC maintenance, assessment of dressing, discussed with nursing -Wound/leg culture no growth in 72 hours on 06/17/18, fungal culture pending, mycobacterial culture pending C. difficile With diarrhea, Isolation -Continue Vanco p.o. -ID following Acute Anemia on chronic, Blood loss anemia likely due to post op blood loss and moderate wound vac drainage -hold heparin due to bleeding -transfused 2 units PRBC yesterday with Lasix in between -monitor CBC, H/H was 6.4/19.2, today 7.8/22.9, follow H&H and transfuse to keep hemoglobin greater than 7 CHF/generalized edema generalized edema, Hip, Thighs, bilateral lower extremities -BNP 739 -CXray with Bilateral effusion and consolidation, on Broad-spectrum antibiotic with vancomycin and Zosyn, -continue Lasix, continue KCL replacement -monitor BMP Acute kidney injury/hypokalemia/hypocalcemia Recent Renal Pathology at [facility]: Impression: diffuse and nodular diabetic glomerulosclerosis, moderately advanced and moderate arteriosclerosis and hyalinosis arteriosclerosis -KCL and calcium replaced -Strict I's and O's. IV fluid hydration -Monitor electrolytes and creatinine level -Creatinine has improved: 1.29 on 06/18, urine output adequate. Stabilized Diabetes mellitus Type 2 -blood glucose fair controlled - diabetic diet -Insulin sliding scale DVT:Teds SCDs GI prophylaxis:-Pepcid Code Status: FULL CODE Discussed Condition With: RN AND PT AND JORDAN Quiles Discharge Planning: AFTER SURGERY IS DONE (3) CHF (congestive heart failure) Qualifiers: Heart failure type: unspecified Heart failure chronicity: acute on chronic Qualified Code(s): I50.9 - Heart failure, unspecified (5) Sepsis Qualifiers: Sepsis type: sepsis due to unspecified organism Qualified Code(s): A41.9 - Sepsis, unspecified organism
--- NOTE | 2018-06-21 16:57 | P.PNWCN ---
Wound Care Nurse Consult Description: Patient seen earlier for wound VAc dressing reinforcement Communicated with: Patient seen for wound VAC dressing change to R BKA stump. Recommendation: Please reinforce as needed with VAC drape if leaking. Doctor Etta to take patient to OR on Please cleanse unstageable wound to L side of the coccyx with normal saline only. Apply Santyl to wound bed nicle thickness and cover with dry cover dressing. Change dressing daily Wound/Pressure Injury - Wound R BKA stump Wound Staging: Unstageable Wound Assessment: Ongoing Wound Type: Pressure Injury Is This a Chronic Wound: No Length (cm): 3 (~3cm) Width (cm): 2 (~2cm) Depth (cm): 0 (eschar) Wound Bed Appearance: Necrotic, Yellow Wound Bed Appearance: Wound presents with ~30% exposed bone, ~10% facia, ~40% muscle, and ~20% red granulation tissue. Surrounding Tissue Appearance: [employer] Surrounding Tissue Temperature: Cool Drainage Description: Serosanguinous Drainage Amount: Scant Drainage Odor: No Odor Dressing Status: Open to Air Cleansing Solution: Saline - Additional Information Patient seen for wound VAC dressing change today. While bond underwriter was assisting patient to lay down. Electrolog Operator observed open wound to L side of the coccyx. Wound descriptions and measurements are noted above. Wound was cleansed with normal saline. Periwound was cleansed with Remedy barrier cloths to remove stool. Spoke with Doctor Tinoco regarding finding of unstageable pressure injury. Recommendations for wound care are noted above. Wound Vac - Wound Vac R BKA stump Pressure Setting (mmHg): 125 (low) Mode Setting: Continuous Drainage Description: Sanguinous Foam type: Black - Additional Information Patient seen today for wound VAC dressing change to R BKA stump. Removed wound VAC dressing in place including one large piece of black granufoam and VAC drape. Wound bed is noted with ~70% clotted sanguinous drainage and ~20% facia and ~10% exposed muscle. Wound was cleansed with normal saline and patted dry. Applied Skin barrier film to periwound and Wound was then window paned with VAC drape. Applied three pieces of oil emulsion gauze (adaptic) over exposed facia. Wound was then covered with one piece of black granufoam. Vac black granufoam was secured with VAC drape and hole was cut to expose granufoam. Mushroom cap of black granufoam was applied to exposed granufaom with attached Sensi-trac pad.With the mushroom cap there are a total of two pieces of granufoam in wound bed. Wound VAC suctioning at 125 mm/hg low continuous suction. Patient was premedicated for pain and tolerated procedure well. Incision - Patient Status Premedicated for Pain Prior to Dressing Change: Yes - Incision R BKA stump Incision Assessment: Ongoing Incision Type: Amputation Incision Description: Open Incision Bed Appearance: Red, White Surrounding Tissue Appearance: [employer] Surrounding Tissue Temperature: Cool Drainage Description: Sanguinous Drainage Amount: Moderate Drainage Odor: No Odor Incision Dressing Status: Changed Incision Cleaning Solution: Saline Incision Packing Type: Woundvac Sponge Primary Dressing: Negative Pressure Wound Dressing Incision Dressing Change Date: 06/21/18
--- NOTE | 2018-06-21 18:12 | P.PNVS ---
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 Wound VAC in place It should be noted that the time of surgery patient had purulent drainage from the proximal portion of the amputation so will take a few days before patient is ready for any further surgery In the best case scenario will undergo washout of the stump and closure on Thursday but depending on what it looks like I may delay the final closure for another few days after that In the meantime patient can be safely extubated and transferred to floor when stable 06/05/2018 Patient status post guillotine amputation of the right foot Considering the amount of infection gas gangrene and purulent drainage wound VAC will remain on for next few days Will likely washout the change wound VAC on Thursday and then go ahead and closed the incision probably around Thursday06/06/2018 Considering the amount of purulent drainage and degree of infection and gas gangrene I believe it is probably leonard to postpone final closure until at least Thursday Patient should have a washout of the stump at the bedside the new wound VAC placement tomorrow 06/07/2018 Wound VAC changed today Amputation site appears to be much acid tank cleaner Will likely closed the incision on Thursday Nothing to add at this time 06/08/2018 Patient had not had a change of wound VAC yet Wound care has been consulted but I do not know why the wound VAC was not changed Will now postpone final surgery until but wound VAC has to be changed and wound washed out today For closure of the BKA stump on Thursday06/10/2018 Patient will have serial wound vacs changed as ordered and by next the drainage and everything should be resolved to the point that patient can have closure of the BKA stump This is a unusually heavily infected purulent tissue of the calf and I do not want to close this before I am sure that is going to heal nicely and not result in a new abscess 06/11/2018 Patient stable Wound VAC changed and grateful to wound care team doing such excellent job Will likely take patient to the operating room or Thursday for hopefully a second stage procedure and closure 06/16/18 Stump appears clean, no more drainage For washout and closure tomorrow 06/17/2018 Patient taken to the operating room for washout and closure of the right BKA stump. Patient underwent amputation at the higher BKA level as planned and flap was created and the time noticed that there is more drainage from the area of the medial gastrocnemius muscle and about 100 cc of thick purulent material is extracted this area is completely opened irrigated with copious amount of saline and a new wound VAC placed At this point have no choice but to continue the wound VAC therapy before I can close this and will periodically see how patient does. Eventually we will close BK stump but in face of continued purulence he will have to be postponed for at least another week if not more 06/18/2018 Patient is status post amputation of the right leg with open stump and wound VAC Is noted during the surgery patient still had about 100 cc of isabella pus in the area of medial gastrocnemius muscle and this whole area has been opened up. Wound VAC on suction and expect a lot of drainage from this Hemoglobin 7 g/dL this morning we will transfuse 2 units PRBC Continue wound VAC changes as previously directed and hopefully by will take patient back to the operating room for another washout and hopefully closure of the stump. 06/19/2018 Wound VAC on the right BKA stump in place Hemoglobin remains stable after transfusion We will continue the wound VAC at least through this week and by the end of week I may decide to close the stump or even wait until next week for once is closed I want to minimize the chance of this getting infected 06/21/2018 Patient post 2nd stage amputation with open flap and vac. Great care by the wound care nurse Jacqueline. Will take to OR thursday or for closure of the flap Objective Vital Signs / I&O: Vital Signs 06/20/18 20:00 06/20/18 23:57 06/21/18 00:00 Temperature 97.4 F L 98.0 F Pulse Rate 101 H 97 H 97 H Respiratory Rate 18 18 Blood Pressure 135/92 H 139/93 H Pulse Oximetry 91 L 93 L 06/21/18 04:00 06/21/18 04:02 06/21/18 08:00 Temperature 97.6 F 97.9 F Pulse Rate 93 H 95 H 94 H Respiratory Rate 18 18 Blood Pressure 138/87 129/87 Pulse Oximetry 92 L 95 06/21/18 16:00 06/21/18 16:34 Temperature 97.4 F L Pulse Rate 99 H Respiratory Rate 18 8 L Blood Pressure 147/95 H Pulse Oximetry 93 L Intake & Output 06/20/18 06/21/18 06/21/18 18:59 06:59 18:59 Intake Total 580 / 580 615 / 615 50 / 50 Output Total 600 / 600 Balance 580 / 580 15 / 15 50 / 50 Weight 96.1 kg Intake: IV 100 / 100 615 / 615 50 / 50 Zosyn 3.375 GM Premix 50 ML @ 100 / 100 100 / 100 50 / 50 100 mls/hr IV.SIG Q6H LINDA Rx#: [id number] Vancomycin Inj 1,500 MG In NS 515 / 515 Inj 500 ML @ 250 mls/hr IV.SIG Q48H LINDA Rx#:[id number] Oral 480 / 480 Output: Urine 600 / 600 Other: Mode Setting L side of coccyx Continuous Right BKA stump Continuous # Voids 1 Date of Last Bowel Movement 06/19/18 # Bowel Movements 0 Laboratory Results - last 24 hr 06/21/18 06/21/18 06/21/18 05:43 05:43 08:28 WBC 4.7 D RBC 4.73 Hgb 13.5 D Hct 41.0 MCV 86.6 MCH 28.5 MCHC 32.9 RDW 17.5 H D Plt Count 197 MPV 8.6 Neut % (Auto) 39.8 Lymph % (Auto) 38.8 [place] % (Auto) 13.0 H Eos % (Auto) 6.8 H Baso % (Auto) 1.6 Neut # (Auto) 1.9 Lymph # (Auto) 1.8 [place] # (Auto) 0.6 Eos # (Auto) 0.3 Baso # (Auto) 0.1 WBC Differential . Differential Comment Auto diff final Sodium 142 Potassium 4.0 Chloride 104 Carbon Dioxide 28.1 Anion Gap 10 BUN 18 Creatinine 1.50 H Estimated GFR 49 L POC Glucose 117 H Random Glucose 75 Calcium 8.9 06/21/18 13:28 WBC RBC Hgb Hct MCV MCH MCHC RDW Plt Count MPV Neut % (Auto) Lymph % (Auto) [place] % (Auto) Eos % (Auto) Baso % (Auto) Neut # (Auto) Lymph # (Auto) [place] # (Auto) Eos # (Auto) Baso # (Auto) WBC Differential Differential Comment Sodium Potassium Chloride Carbon Dioxide Anion Gap BUN Creatinine Estimated GFR POC Glucose 110 Random Glucose Calcium
[2018-06-22] MEDS: Morphine Inj 4 MG/ML Vial IV.PUSH PRN (00:20)
[2018-06-22] MEDS: Piperacil/Tazo 3.375 GM Premix 50 ML IV.SIG SCH ×4 (03:41→21:00)
[2018-06-22] MEDS: Calcium Carbonate 500 MG Tablet PO SCH ×2 (10:03→23:40)
[2018-06-22] MEDS: Famotidine PF Inj 20 MG/2 ML Vial IV.PUSH SCH ×2 (10:03→23:41)
[2018-06-22] MEDS: Sodium Chloride 0.9% 2 ML Flush BID IV.FLUSH SCH ×2 (10:04→23:40)
[2018-06-22] MEDS: Senna/Docusate Sodium 8.6/50 MG Tablet PO SCH ×2 (10:04→23:41)
[2018-06-22] MEDS: Insulin NovoLOG Aspart Correctional Sugar Inj SQ SCH ×4 (10:04→23:40)
[2018-06-22] MEDS: Collagenase Oint 30 GM Tube TOPICAL SCH ×2 (10:05)
[2018-06-22] MEDS: Furosemide 20 MG Tablet PO SCH ×2 (10:16→18:04)
--- NOTE | 2018-06-22 14:56 | P.PNID ---
Subjective Remarks: C Diff (+) no fever co worsening diarrhea, Dw Dr Quiles: wound with still a lot of purulence duri g last debridement, not ready for closure Antibiotics: vanco IV zosyn Vanco po Past Medical History: Congestive heart failure Type 2 diabetes mellitus Cholecystectomy Allergies/Adverse Reactions: Allergies No Known Allergies Allergy (Unverified 06/02/18 15:19) Objective Vital Signs 06/21/18 16:00 06/21/18 16:34 06/21/18 20:00 Temperature 97.4 F L 97.4 F L Pulse Rate 97 H 101 H Respiratory Rate 18 8 L 19 Blood Pressure 147/95 H 133/90 Pulse Oximetry 93 L 93 L 06/21/18 21:33 06/22/18 00:00 06/22/18 04:00 Temperature 98.5 F 97.6 F Pulse Rate 92 H 93 H Respiratory Rate 18 18 18 Blood Pressure 125/83 125/85 Pulse Oximetry 97 99 06/22/18 08:00 Temperature 97.5 F L Pulse Rate 95 H Respiratory Rate 22 Blood Pressure 130/89 Pulse Oximetry 100 Intake & Output 06/21/18 06/22/18 06/22/18 18:59 06:59 18:59 Intake Total 580 / 580 321 / 321 50 / 50 Output Total 450 / 450 Balance 130 / 130 321 / 321 50 / 50 Weight 95.8 kg Intake: IV 100 / 100 100 / 100 50 / 50 Zosyn 3.375 GM Premix 50 ML @ 100 / 100 100 / 100 50 / 50 100 mls/hr IV.SIG Q6H LINDA Rx#: [id number] Oral 480 / 480 221 / 221 Output: Urine 450 / 450 Other: Mode Setting L side of coccyx Continuous Right BKA stump Continuous Continuous Date of Last Bowel Movement 06/19/18 06/21/18 # Bowel Movements 1 1 06/17/18 12:07 Wound - Leg Gram Stain - Final 06/17/18 12:07 Wound - Leg Wound Culture - Final No growth in 72 hours (aerobically and anaerobically ) Lab - Hematology Results 06/21/18 05:43 WBC 4.7 D RBC 4.73 Hgb 13.5 D Hct 41.0 MCV 86.6 MCH 28.5 MCHC 32.9 RDW 17.5 H D Plt Count 197 MPV 8.6 Neut % (Auto) 39.8 Lymph % (Auto) 38.8 [place] % (Auto) 13.0 H Eos % (Auto) 6.8 H Baso % (Auto) 1.6 Neut # (Auto) 1.9 Lymph # (Auto) 1.8 [place] # (Auto) 0.6 Eos # (Auto) 0.3 Baso # (Auto) 0.1 WBC Differential . Differential Comment Auto diff final Lab - Chemistry Results 06/20/18 06/21/18 06/21/18 16:51 05:43 08:28 Sodium 142 Potassium 4.0 Chloride 104 Carbon Dioxide 28.1 Anion Gap 10 BUN 18 Creatinine 1.50 H Estimated GFR 49 L POC Glucose 103 117 H Random Glucose 75 Calcium 8.9 06/21/18 06/21/18 06/22/18 13:28 20:28 03:39 Sodium Potassium Chloride Carbon Dioxide Anion Gap BUN Creatinine Estimated GFR POC Glucose 110 86 79 Random Glucose Calcium 06/22/18 06/22/18 06/22/18 07:48 09:31 12:39 Sodium Potassium Chloride Carbon Dioxide Anion Gap BUN Creatinine Estimated GFR POC Glucose 107 97 111 H Random Glucose Calcium 06/22/18 13:19 Sodium Potassium Chloride Carbon Dioxide Anion Gap BUN Creatinine 1.25 Estimated GFR 61 L POC Glucose Random Glucose Calcium Imaging: ITS Impressions Venous Doppler Study 06/02/18 15:46 CONCLUSION: 1. No sonographic evidence of lower extremity DVT. 2. Bilateral lower extremity subcutaneous edema. 3. Multiple lymph nodes seen in both groins, some of which are abnormally enlarged. Recommend clinical correlation. Foot X-Ray 06/02/18 15:52 CONCLUSION: Extensive subcutaneous air. No bone fracture or dislocation Chest X-Ray 06/15/18 00:00 CONCLUSION: Bilateral effusions and consolidation. Physical Exam: GENERAL: , NAD SKIN: Warm and dry. No rash HEAD: Atraumatic. Normocephalic. EYES: Pupils equal and round. No scleral icterus. No injection or drainage. ENT: No nasal bleeding or discharge. Mucous membranes pink and moist. NECK: No JVD. CARDIOVASCULAR: Regular rate and rhythm. RESPIRATORY: No accessory muscle use. Clear to auscultation. Breath sounds equal bilaterally. GASTROINTESTINAL: Abdomen soft, non-tender, distended. Pitting edema on the lower abdominal wall Hepatic and splenic margins not palpable. MUSCULOSKELETAL: Extremities without clubbing, cyanosis, + prominent soft pitting edema VAC in place with serosang dc, NEUROLOGICAL: Non-focal PSYCHIATRIC: depressed Assessment and Plan - Plan Impression Sepsis, E coli - better Gas gangrene RLE, S/P guillotine amputation RBKA, C/S polymicrobial life treatening severe R foot DFI Gas gangrene R foot, polimicrobial mixed aerobic/anaerobic infx, including MRSA Acutre VDRF- resolved ARF - resolved C difficile colitis: worse again Recommendation Continue zosyn Continue vancomycin for MRSA co-infx Stop dates for systemic abx after definitive surgical treatment: planned this Continue po Vancomycin for C diff; rechk c.diff dw Guerita Taylor
--- NOTE | 2018-06-22 15:17 | P.PNIM ---
Subjective Interval history: 53-year-old male presented to emergency department today with complaints of shortness of breath, fatigue, and extensive draining edema of the lower extremities bilaterally. Per chart review his symptoms started 5 days ago and the swelling of his lower legs and feet have progressively gotten worse over the past 5 days. The patient also has had pain in the back of both lower extremities from the knees to the toes. He denied chest pain. He has a history of type-II diabetes mellitus and congestive heart failure. He has not taken any of his regular medications for the past 3 weeks due to financial limitations. During the examination in the emergency department he was found to have gangrene of the right foot and was emergently taken to operating room for an incision and drainage with debridement of foot and ankle. Postoperatively he remains intubated and was admitted to ICU for critical care management. SUBJ: s/p Incision drainage debridement foot ankle and distal leg, for gas gangrene. Remains in septic shock on Levophed. Remains intubated sedated. Currently on vancomycin and Zosyn I have added clindamycin. Cultures and wound cultures pending . Vascular surgery consult also pending. Received 2 units PRBC for hemoglobin of 5.3 06/04/18: Patient had been weaned off all pressors. Wakes up easily follows commands. 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 WBC count remains elevated but renal function improving. Hemoglobin stable. Multiple blood cultures growing E. coli. Wound culture with E. coli, MRSA, gram-negative rods. Continue Zosyn and vancomycin 06/05: Remains off vasopressors. Alert and conversant. Encephalopathy clearing. Blood and wound organisms identified, antibiotic coverage appropriate. 06/06: Normotensive. Afebrile. Urine output acceptable. Septic picture largely over. Base deficit largely corrected. Blood sugar trending higher will convert to full diabetic diet. 10-7 Follow-up acute on chronic anemia, status post right BKA x2, MRSA, CHF, AKA , C. difficile, diabetes type 2, generalized edema. Patient seen and examined laying in bed, still complaining of pain on the right leg at 7 out of 10. Patient stated better with morphine, stated pain down to 2 or 3 after the morphine. Patient encouraged to take pain medication at this time however this , discussed to rule down later. Patient denies any diarrhea today, had one formed stool today. Patient denies any fever or chills, denies any headache or dizziness, denies any nausea or vomiting. 06-21 PATIENT TO HAVE REVISION ON RIGHT LE ON THURSDAY. MAXIMUS SURGERY DR Etta MACIEL LABS CONTINUE CURRENT TREATMENTS SEEN SITTING ON SIDE OF BED 06-22 TO GO FOR SURGERY ON RIGHT LE ON THURSDAY NO NEW COMPLAINTS STATES DOES NOT LIKE THE FOOD DW RN AND PT AND CM Physical Exam Vital signs: Vital Signs 06/21/18 16:00 06/21/18 16:34 06/21/18 20:00 Temperature 97.4 F L 97.4 F L Pulse Rate 97 H 101 H Respiratory Rate 18 8 L 19 Blood Pressure 147/95 H 133/90 Pulse Oximetry 93 L 93 L 06/21/18 21:33 06/22/18 00:00 06/22/18 04:00 Temperature 98.5 F 97.6 F Pulse Rate 92 H 93 H Respiratory Rate 18 18 18 Blood Pressure 125/83 125/85 Pulse Oximetry 97 99 06/22/18 08:00 Temperature 97.5 F L Pulse Rate 95 H Respiratory Rate 22 Blood Pressure 130/89 Pulse Oximetry 100 Intake & Output 06/21/18 06/22/18 06/22/18 18:59 06:59 18:59 Intake Total 580 / 580 321 / 321 50 / 50 Output Total 450 / 450 Balance 130 / 130 321 / 321 50 / 50 Weight 95.8 kg Intake: IV 100 / 100 100 / 100 50 / 50 Zosyn 3.375 GM Premix 50 ML @ 100 / 100 100 / 100 50 / 50 100 mls/hr IV.SIG Q6H LINDA Rx#: [id number] Oral 480 / 480 221 / 221 Output: Urine 450 / 450 Other: Mode Setting L side of coccyx Continuous Right BKA stump Continuous Continuous Date of Last Bowel Movement 06/19/18 06/21/18 # Bowel Movements 1 1 Narrative: GENERAL: Well-developed, well-nourished, alert and oriented x3, with no apparent distress SKIN: Warm and dry. Right below the knee stump dressed with woundvac, intact draining sanguinous on wound VAC. HEAD: Atraumatic. Normocephalic. EYES: Pupils equal and round. No scleral icterus. No injection or drainage. ENT: No nasal bleeding or discharge. Mucous membranes pink and moist. NECK: Trachea midline. No JVD. CARDIOVASCULAR: Regular rate and rhythm. lateral Hips, thigh, Bilateral lower extremity edema 1 + pitting, scrotal edema. RESPIRATORY: No accessory muscle use. Clear to auscultation. Breath sounds equal bilaterally. GASTROINTESTINAL: Abdomen soft, non-tender, nondistended. Hepatic and splenic margins not palpable. MUSCULOSKELETAL: Extremities without clubbing, cyanosis, or edema. No obvious deformities. right LE BKA stump dressed with wound VAC NEUROLOGICAL: Awake and alert. No obvious cranial nerve deficits. Motor grossly within normal limits. Generalized weakness, moves all 4 extremities. Right lower extremity with limited range of motion. normal speech. PSYCHIATRIC: Appropriate mood and affect; insight and judgment normal. - PENIS SCROTAL AREA WITH SEVERE EDEMA - Urinary Catheter Management Indwelling Urethral Catheter Cath placed during this visit: yes, but has since been removed by the nurse Reason for continuing: Decision to DC catheter Insertion date: 06/09/18 Insertion time: 13:59 Removal date: 06/09/18 Removal time: 14:57 Results - Labs CBC & Chem 7: 06/21/18 05:43 06/22/18 13:19 Laboratory Results - last 24 hr 06/21/18 06/22/18 06/22/18 20:28 03:39 07:48 Creatinine Estimated GFR POC Glucose 86 79 107 06/22/18 06/22/18 06/22/18 09:31 12:39 13:19 Creatinine 1.25 Estimated GFR 61 L POC Glucose 97 111 H Assessment and Plan - Assessment (1) Status post below knee amputation Code(s): Z89.519 - Acquired absence of unspecified leg below knee Status: Acute (2) Gas gangrene Code(s): A48.0 - Gas gangrene Status: Acute (3) CHF (congestive heart failure) Code(s): I50.9 - Heart failure, unspecified Status: Acute (4) YOLY (acute kidney injury) Code(s): N17.9 - Acute kidney failure, unspecified Status: Acute (5) Sepsis Code(s): A41.9 - Sepsis, unspecified organism Status: Acute - Plan 53-year-old male admitted with acute septic shock, respiratory failure status post extubation and BKA. Patient has been receiving ICU care and stabilized for transfer to the hospitalist service in the medical surgical floor. Septic shock/leukocytosis/respiratory failure with intubation s/p right BKA/Gas Gangrene of the right foot 06/03/18 Status post higher BKA and flap today 06/17/18 -Broad-spectrum antibiotic with vancomycin and Zosyn, -ID Consulted, Multiple blood cultures with E. coli, wound culture with E. coli , gram-negative ankur, MRSA on 06/02/18 -Status post I&D and debridement, status post BKA by Dr. Quiles 06/03/18 and higher BKA on 06/17/18 -Septic Shock resolved -Continue [place] and morphine IV as needed for breakthrough pain. -s/p Higher BKA 06/17/18-Vascular surgery, plan for stump closure for at least another week or more we will continue wound VAC for now -Right BKA stump with wound vac improved suction and drainage, wound care for wound VAC maintenance, assessment of dressing, discussed with nursing -Wound/leg culture no growth in 72 hours on 06/17/18, fungal culture pending, mycobacterial culture pending C. difficile With diarrhea, Isolation -Continue Vanco p.o. -ID following Acute Anemia on chronic, Blood loss anemia likely due to post op blood loss and moderate wound vac drainage -hold heparin due to bleeding -transfused 2 units PRBC yesterday with Lasix in between -monitor CBC, H/H was 6.4/19.2, today 7.8/22.9, follow H&H and transfuse to keep hemoglobin greater than 7 CHF/generalized edema generalized edema, Hip, Thighs, bilateral lower extremities -BNP 739 -CXray with Bilateral effusion and consolidation, on Broad-spectrum antibiotic with vancomycin and Zosyn, -continue Lasix, continue KCL replacement -monitor BMP Acute kidney injury/hypokalemia/hypocalcemia Recent Renal Pathology at [facility]: Impression: diffuse and nodular diabetic glomerulosclerosis, moderately advanced and moderate arteriosclerosis and hyalinosis arteriosclerosis -KCL and calcium replaced -Strict I's and O's. IV fluid hydration -Monitor electrolytes and creatinine level -Creatinine has improved: 1.29 on 06/18, urine output adequate. Stabilized Diabetes mellitus Type 2 -blood glucose fair controlled - diabetic diet -Insulin sliding scale DVT:Teds SCDs GI prophylaxis:-Pepcid Code Status: FULL CODE Discussed Condition With: RN AND PT AND CM Discharge Planning: AFTER SURGERY IS DONE (3) CHF (congestive heart failure) Qualifiers: Heart failure type: unspecified Heart failure chronicity: acute on chronic Qualified Code(s): I50.9 - Heart failure, unspecified (5) Sepsis Qualifiers: Sepsis type: sepsis due to unspecified organism Qualified Code(s): A41.9 - Sepsis, unspecified organism
--- NOTE | 2018-06-22 17:02 | P.PNVS ---
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 Wound VAC in place It should be noted that the time of surgery patient had purulent drainage from the proximal portion of the amputation so will take a few days before patient is ready for any further surgery In the best case scenario will undergo washout of the stump and closure on Thursday but depending on what it looks like I may delay the final closure for another few days after that In the meantime patient can be safely extubated and transferred to floor when stable 06/05/2018 Patient status post guillotine amputation of the right foot Considering the amount of infection gas gangrene and purulent drainage wound VAC will remain on for next few days Will likely washout the change wound VAC on Thursday and then go ahead and closed the incision probably around Thursday06/06/2018 Considering the amount of purulent drainage and degree of infection and gas gangrene I believe it is probably leonard to postpone final closure until at least Thursday Patient should have a washout of the stump at the bedside the new wound VAC placement tomorrow 06/07/2018 Wound VAC changed today Amputation site appears to be much char dust cleaner and salvager Will likely closed the incision on Thursday Nothing to add at this time 06/08/2018 Patient had not had a change of wound VAC yet Wound care has been consulted but I do not know why the wound VAC was not changed Will now postpone final surgery until but wound VAC has to be changed and wound washed out today For closure of the BKA stump on Thursday06/10/2018 Patient will have serial wound vacs changed as ordered and by next the drainage and everything should be resolved to the point that patient can have closure of the BKA stump This is a unusually heavily infected purulent tissue of the calf and I do not want to close this before I am sure that is going to heal nicely and not result in a new abscess 06/11/2018 Patient stable Wound VAC changed and grateful to wound care team doing such excellent job Will likely take patient to the operating room or Thursday for hopefully a second stage procedure and closure 06/16/18 Stump appears clean, no more drainage For washout and closure tomorrow 06/17/2018 Patient taken to the operating room for washout and closure of the right BKA stump. Patient underwent amputation at the higher BKA level as planned and flap was created and the time noticed that there is more drainage from the area of the medial gastrocnemius muscle and about 100 cc of thick purulent material is extracted this area is completely opened irrigated with copious amount of saline and a new wound VAC placed At this point have no choice but to continue the wound VAC therapy before I can close this and will periodically see how patient does. Eventually we will close BK stump but in face of continued purulence he will have to be postponed for at least another week if not more 06/18/2018 Patient is status post amputation of the right leg with open stump and wound VAC Is noted during the surgery patient still had about 100 cc of isabella pus in the area of medial gastrocnemius muscle and this whole area has been opened up. Wound VAC on suction and expect a lot of drainage from this Hemoglobin 7 g/dL this morning we will transfuse 2 units PRBC Continue wound VAC changes as previously directed and hopefully by will take patient back to the operating room for another washout and hopefully closure of the stump. 06/19/2018 Wound VAC on the right BKA stump in place Hemoglobin remains stable after transfusion We will continue the wound VAC at least through this week and by the end of week I may decide to close the stump or even wait until next week for once is closed I want to minimize the chance of this getting infected 06/21/2018 Patient post 2nd stage amputation with open flap and vac. Great care by the wound care nurse Jacqueline. Will take to OR thursday or for closure of the flap 06/22/2018 Stump seems to be clean and serosanguineous drainage from the wound VAC is clearing up I do not believe that there is need to wait any longer and we can close the stump probably safely tomorrow unless I find some surprises during the surgery Tentatively patient scheduled for tomorrow for irrigation and closure of the right BKA stump Objective Vital Signs / I&O: Vital Signs 06/21/18 20:00 06/21/18 21:33 06/22/18 00:00 Temperature 97.4 F L 98.5 F Pulse Rate 101 H 92 H Respiratory Rate 19 18 18 Blood Pressure 133/90 125/83 Pulse Oximetry 93 L 97 06/22/18 04:00 06/22/18 08:00 06/22/18 12:00 Temperature 97.6 F 97.5 F L 97.3 F L Pulse Rate 93 H 95 H 94 H Respiratory Rate 18 23 Blood Pressure 125/85 130/89 135/92 H Pulse Oximetry 99 100 100 Intake & Output 06/21/18 06/22/18 06/22/18 18:59 06:59 18:59 Intake Total 580 / 580 321 / 321 50 / 50 Output Total 450 / 450 Balance 130 / 130 321 / 321 50 / 50 Weight 95.8 kg Intake: IV 100 / 100 100 / 100 50 / 50 Zosyn 3.375 GM Premix 50 ML @ 100 / 100 100 / 100 50 / 50 100 mls/hr IV.SIG Q6H [facility] Rx#: [id number] Oral 480 / 480 221 / 221 Output: Urine 450 / 450 Other: Mode Setting L side of coccyx Continuous Right BKA stump Continuous Continuous Date of Last Bowel Movement 06/19/18 06/21/18 # Bowel Movements 1 1 Laboratory Results - last 24 hr 06/21/18 06/22/18 06/22/18 20:28 03:39 07:48 Creatinine Estimated GFR POC Glucose 86 79 107 06/22/18 06/22/18 06/22/18 09:31 12:39 13:19 Creatinine 1.25 Estimated GFR 61 L POC Glucose 97 111 H
[2018-06-22] MEDS ORDERED: Pharmacy Ordered Lab Info OTHER ONE (20:45)
[2018-06-23] MEDS: Vancomycin Inj 1,500 MG in Sodium Chlor 0.9% Inj 500 ML IV.SIG SCH ×2
[2018-06-23 01:45] LABS: Calcium 7.7 mg/dL (8.5-10.1); Carbon Dioxide 26.3 meq/L (21.0-32.0); Potassium 5.1 meq/L (3.5-5.1)
[2018-06-23] MEDS: Piperacil/Tazo 3.375 GM Premix 50 ML IV.SIG SCH ×4 (03:30→21:27)
[2018-06-23] MEDS ORDERED: Chlorhexidine Gluconate 2% 1 Pack (2 Cloths) TOPICAL ONE (06:00)
[2018-06-23] MEDS ORDERED: Sodium Chlor 0.9% Inj 500 ML IV.CONT ONE (06:00)
[2018-06-23 07:38] LABS: INR 1.3 Ratio; Prothrombin Time 13.1 sec (9.8-11.6)
[2018-06-23 07:50] LABS: Baso # (Auto) 0.1 th/mm3 (0.0-0.2); Baso % (Auto) 1.1 % (0.0-2.0); Eos # (Auto) 0.4 th/mm3 (0.0-0.4); Eos % (Auto) 3.1 % (0.0-4.0); Hematocrit 22.9 % (39.0-51.0); Lymph # (Auto) 2.2 th/mm3 (1.0-4.8); Lymph % (Auto) 19.1 % (9.0-44.0); Mean Corpuscular Hemoglobin 33.4 pg (27.0-34.0); Mean Corpuscular Volume 95.4 fL (80.0-100.0); Mean Platelet Volume 7.2 fL (7.0-11.0); Mono # (Auto) 0.7 th/mm3 (0.0-0.9); Mono % (Auto) 5.8 % (0.0-8.0); Neut # (Auto) 8.1 th/mm3 (1.8-7.7); Neut % (Auto) 70.9 % (16.0-70.0); Platelet Count 253 th/mm3 (150-450); White Blood Count 11.4 th/mm3 (4.0-11.0)
[2018-06-23 08:08] LABS: Albumin 0.8 g/dL (3.4-5.0); Anion Gap 6 meq/L (5-15); Aspartate Aminotransferase 26 U/L (15-37); Blood Urea Nitrogen 13 mg/dL (7-18); Carbon Dioxide 26.2 meq/L (21.0-32.0); Chloride 110 meq/L (98-107); Glomerular Filtration Rate 58 mL/min (>89); Glucose,Random 78 mg/dL (74-106); Magnesium 1.7 mg/dL (1.5-2.5); Potassium 4.9 meq/L (3.5-5.1); Sodium 142 meq/L (136-145)
[2018-06-23 08:13] LABS: Alanine Aminotransferase 12 U/L (12-78); Alkaline Phosphatase 122 U/L (45-117); Total Protein 6.2 g/dL (6.4-8.2); Vancomycin,Random 44.2 Comment
[2018-06-23] MEDS: Insulin NovoLOG Aspart Correctional Sugar Inj SQ SCH ×4 (08:50→21:29)
[2018-06-23] MEDS: Senna/Docusate Sodium 8.6/50 MG Tablet PO SCH ×2 (08:50→21:27)
[2018-06-23] MEDS: Sodium Chloride 0.9% 2 ML Flush BID IV.FLUSH SCH ×2 (08:51→21:29)
[2018-06-23] MEDS: Famotidine PF Inj 20 MG/2 ML Vial IV.PUSH SCH ×2 (08:51→21:27)
[2018-06-23] MEDS: Calcium Carbonate 500 MG Tablet PO SCH ×2 (08:51→21:27)
[2018-06-23] MEDS: Collagenase Oint 30 GM Tube TOPICAL SCH ×2 (08:52→08:53)
[2018-06-23] MEDS: Furosemide 20 MG Tablet PO SCH ×2 (09:01→17:00)
--- NOTE | 2018-06-23 10:56 | P.PNIM ---
Subjective Interval history: 53-year-old male presented to emergency department today with complaints of shortness of breath, fatigue, and extensive draining edema of the lower extremities bilaterally. Per chart review his symptoms started 5 days ago and the swelling of his lower legs and feet have progressively gotten worse over the past 5 days. The patient also has had pain in the back of both lower extremities from the knees to the toes. He denied chest pain. He has a history of type-II diabetes mellitus and congestive heart failure. He has not taken any of his regular medications for the past 3 weeks due to financial limitations. During the examination in the emergency department he was found to have gangrene of the right foot and was emergently taken to operating room for an incision and drainage with debridement of foot and ankle. Postoperatively he remains intubated and was admitted to ICU for critical care management. SUBJ: s/p Incision drainage debridement foot ankle and distal leg, for gas gangrene. Remains in septic shock on [place]. Remains intubated sedated. Currently on vancomycin and Zosyn I have added clindamycin. Cultures and wound cultures pending . Vascular surgery consult also pending. Received 2 units PRBC for hemoglobin of 5.3 06/04/18: Patient had been weaned off all pressors. Wakes up easily follows commands. 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 WBC count remains elevated but renal function improving. Hemoglobin stable. Multiple blood cultures growing E. coli. Wound culture with E. coli, MRSA, gram-negative rods. Continue Zosyn and vancomycin 06/05: Remains off vasopressors. Alert and conversant. Encephalopathy clearing. Blood and wound organisms identified, antibiotic coverage appropriate. 06/06: Normotensive. Afebrile. Urine output acceptable. Septic picture largely over. Base deficit largely corrected. Blood sugar trending higher will convert to full diabetic diet. 10-7 Follow-up acute on chronic anemia, status post right BKA x2, MRSA, CHF, AKA , C. difficile, diabetes type 2, generalized edema. Patient seen and examined laying in bed, still complaining of pain on the right leg at 7 out of 10. Patient stated better with morphine, stated pain down to 2 or 3 after the morphine. Patient encouraged to take pain medication at this time however this , discussed to rule down later. Patient denies any diarrhea today, had one formed stool today. Patient denies any fever or chills, denies any headache or dizziness, denies any nausea or vomiting. 06-21 PATIENT TO HAVE REVISION ON RIGHT LE ON THURSDAY. DW SURGERY DR Etta [facility] CONTINUE CURRENT TREATMENTS SEEN SITTING ON SIDE OF BED 06-22 TO GO FOR SURGERY ON RIGHT LE ON THURSDAY NO NEW COMPLAINTS STATES DOES NOT LIKE THE FOOD [facility] RN AND PT AND MARSHAL 06-23 patient is scheduled to go for surgery today NOW SEEN BEFORE SURGERY [facility] RN AND PT AND [facility] Physical Exam Vital signs: Vital Signs 06/22/18 12:00 06/22/18 16:00 06/22/18 20:00 Temperature 97.3 F L 97.1 F L 97.2 F L Pulse Rate 94 H 95 H 98 H Respiratory Rate 23 22 20 Blood Pressure 135/92 H 136/91 H 141/95 H Pulse Oximetry 100 100 99 06/23/18 00:00 06/23/18 04:00 06/23/18 08:00 Temperature 97.2 F L 97.6 F Pulse Rate 97 H 96 H 97 H Respiratory Rate 18 16 Blood Pressure 128/85 134/93 H Pulse Oximetry 95 98 Intake & Output 06/22/18 06/23/18 06/23/18 18:59 06:59 18:59 Intake Total 1060 / 1060 855 / 855 Output Total 900 / 900 1050 / 1050 Balance 160 / 160 -195 / -195 Weight 95.1 kg Intake: IV 100 / 100 615 / 615 Zosyn 3.375 GM Premix 50 ML @ 100 / 100 100 / 100 100 mls/hr IV.SIG Q6H [facility] Rx#: [id number] Vancomycin Inj 1,500 MG In NS 515 / 515 Inj 500 ML @ 250 mls/hr IV.SIG Q48H [facility] Rx#:[id number] Oral 960 / 960 240 / 240 Output: Urine 900 / 900 1050 / 1050 Other: Mode Setting Right BKA stump Continuous Continuous Date of Last Bowel Movement 06/21/18 06/23/18 # Bowel Movements 5 # Incontinent Bowel Movements 2 Narrative: GENERAL: Well-developed, well-nourished, alert and oriented x3, with no apparent distress SKIN: Warm and dry. Right below the knee stump dressed with woundvac, intact draining sanguinous on wound VAC. HEAD: Atraumatic. Normocephalic. EYES: Pupils equal and round. No scleral icterus. No injection or drainage. ENT: No nasal bleeding or discharge. Mucous membranes pink and moist. NECK: Trachea midline. No JVD. CARDIOVASCULAR: Regular rate and rhythm. lateral Hips, thigh, Bilateral lower extremity edema 1 + pitting, scrotal edema. RESPIRATORY: No accessory muscle use. Clear to auscultation. Breath sounds equal bilaterally. GASTROINTESTINAL: Abdomen soft, non-tender, nondistended. Hepatic and splenic margins not palpable. MUSCULOSKELETAL: Extremities without clubbing, cyanosis, or edema. No obvious deformities. right LE BKA stump dressed with wound VAC NEUROLOGICAL: Awake and alert. No obvious cranial nerve deficits. Motor grossly within normal limits. Generalized weakness, moves all 4 extremities. Right lower extremity with limited range of motion. normal speech. PSYCHIATRIC: Appropriate mood and affect; insight and judgment normal. - PENIS SCROTAL AREA WITH SEVERE EDEMA - Urinary Catheter Management Indwelling Urethral Catheter Cath placed during this visit: yes, but has since been removed by the nurse Reason for continuing: Decision to DC catheter Insertion date: 06/09/18 Insertion time: 13:59 Removal date: 06/09/18 Removal time: 14:57 Results - Labs CBC & Chem 7: 06/23/18 07:09 06/23/18 07:09 Laboratory Results - last 24 hr 06/22/18 06/22/18 06/22/18 12:39 13:19 19:30 WBC RBC Hgb Hct MCV MCH MCHC RDW Plt Count MPV Neut % (Auto) Lymph % (Auto) [place] % (Auto) Eos % (Auto) Baso % (Auto) Neut # (Auto) Lymph # (Auto) [place] # (Auto) Eos # (Auto) Baso # (Auto) WBC Differential Differential Comment PT INR Sodium Potassium Chloride Carbon Dioxide Anion Gap BUN Creatinine 1.25 Estimated GFR 61 L POC Glucose 111 H 84 Random Glucose Calcium Phosphorus Magnesium Total Bilirubin AST ALT Alkaline Phosphatase Total Protein Albumin Vancomycin Trough Random Vancomycin 06/22/18 06/22/18 06/23/18 23:49 23:49 07:09 WBC 11.4 H RBC 2.40 L Hgb 8.0 L Hct 22.9 L MCV 95.4 D MCH 33.4 MCHC 35.0 RDW 21.0 H D Plt Count 253 MPV 7.2 Neut % (Auto) 70.9 H Lymph % (Auto) 19.1 [place] % (Auto) 5.8 Eos % (Auto) 3.1 Baso % (Auto) 1.1 Neut # (Auto) 8.1 H Lymph # (Auto) 2.2 [place] # (Auto) 0.7 Eos # (Auto) 0.4 Baso # (Auto) 0.1 WBC Differential . Differential Comment Auto diff final PT INR Sodium 145 Potassium 5.1 D Chloride 110 H Carbon Dioxide 26.3 Anion Gap 9 BUN 12 Creatinine 1.28 Estimated GFR 59 L POC Glucose Random Glucose 84 Calcium 7.7 L D Phosphorus Magnesium Total Bilirubin AST ALT Alkaline Phosphatase Total Protein Albumin Vancomycin Trough 16.8 H Random Vancomycin 06/23/18 06/23/18 06/23/18 07:09 07:09 08:06 WBC RBC Hgb Hct MCV MCH MCHC RDW Plt Count MPV Neut % (Auto) Lymph % (Auto) [place] % (Auto) Eos % (Auto) Baso % (Auto) Neut # (Auto) Lymph # (Auto) [place] # (Auto) Eos # (Auto) Baso # (Auto) WBC Differential Differential Comment PT 13.1 H INR 1.3 Sodium 142 Potassium 4.9 Chloride 110 H Carbon Dioxide 26.2 Anion Gap 6 BUN 13 Creatinine 1.29 Estimated GFR 58 L POC Glucose 76 Random Glucose 78 Calcium 8.0 L Phosphorus 3.0 Magnesium 1.7 Total Bilirubin 0.2 AST 26 ALT 12 Alkaline Phosphatase 122 H Total Protein 6.2 L Albumin 0.8 L Vancomycin Trough Random Vancomycin 44.2 - Imaging ITS Impressions Venous Doppler Study 06/02/18 15:46 CONCLUSION: 1. No sonographic evidence of lower extremity DVT. 2. Bilateral lower extremity subcutaneous edema. 3. Multiple lymph nodes seen in both groins, some of which are abnormally enlarged. Recommend clinical correlation. Foot X-Ray 06/02/18 15:52 CONCLUSION: Extensive subcutaneous air. No bone fracture or dislocation Chest X-Ray 06/15/18 00:00 CONCLUSION: Bilateral effusions and consolidation. Assessment and Plan - Assessment (1) Status post below knee amputation Code(s): Z89.519 - Acquired absence of unspecified leg below knee Status: Acute (2) Gas gangrene Code(s): A48.0 - Gas gangrene Status: Acute (3) CHF (congestive heart failure) Code(s): I50.9 - Heart failure, unspecified Status: Acute (4) YOLY (acute kidney injury) Code(s): N17.9 - Acute kidney failure, unspecified Status: Acute (5) Sepsis Code(s): A41.9 - Sepsis, unspecified organism Status: Acute - Plan 53-year-old male admitted with acute septic shock, respiratory failure status post extubation and BKA. Patient has been receiving ICU care and stabilized for transfer to the hospitalist service in the medical surgical floor. Septic shock/leukocytosis/respiratory failure with intubation s/p right BKA/Gas Gangrene of the right foot 06/03/18 Status post higher BKA and flap today 06/17/18 -Broad-spectrum antibiotic with vancomycin and Zosyn, -ID Consulted, Multiple blood cultures with E. coli, wound culture with E. coli , gram-negative ankur, MRSA on 06/02/18 -Status post I&D and debridement, status post BKA by Dr. Quiles 06/03/18 and higher BKA on 06/17/18 -Septic Shock resolved -Continue [place] and morphine IV as needed for breakthrough pain. -s/p Higher BKA 06/17/18-Vascular surgery, plan for stump closure for at least another week or more we will continue wound VAC for now -Right BKA stump with wound vac improved suction and drainage, wound care for wound VAC maintenance, assessment of dressing, discussed with nursing -Wound/leg culture no growth in 72 hours on 06/17/18, fungal culture pending, mycobacterial culture pending FOR SURGERY TODAY 10-10 C. difficile With diarrhea, Isolation -Continue Vanco p.o. -ID following Acute Anemia on chronic, Blood loss anemia likely due to post op blood loss and moderate wound vac drainage -hold heparin due to bleeding -transfused 2 units PRBC yesterday with Lasix in between -monitor CBC, H/H was 6.4/19.2, today 7.8/22.9, follow H&H and transfuse to keep hemoglobin greater than 7 CHF/generalized edema generalized edema, Hip, Thighs, bilateral lower extremities -BNP 739 -CXray with Bilateral effusion and consolidation, on Broad-spectrum antibiotic with vancomycin and Zosyn, -continue Lasix, continue KCL replacement -monitor BMP Acute kidney injury/hypokalemia/hypocalcemia Recent Renal Pathology at [facility]: Impression: diffuse and nodular diabetic glomerulosclerosis, moderately advanced and moderate arteriosclerosis and hyalinosis arteriosclerosis -KCL and calcium replaced -Strict I's and O's. IV fluid hydration -Monitor electrolytes and creatinine level -Creatinine has improved: 1.29 on 06/18, urine output adequate. Stabilized Diabetes mellitus Type 2 -blood glucose fair controlled - diabetic diet -Insulin sliding scale DVT:Teds SCDs GI prophylaxis:-Pepcid Code Status: FULL CODE Discussed Condition With: RN AND PT AND CM Discharge Planning: AFTER SURGERY IS DONE AND CLEARED (3) CHF (congestive heart failure) Qualifiers: Heart failure type: unspecified Heart failure chronicity: acute on chronic Qualified Code(s): I50.9 - Heart failure, unspecified (5) Sepsis Qualifiers: Sepsis type: sepsis due to unspecified organism Qualified Code(s): A41.9 - Sepsis, unspecified organism
--- NOTE | 2018-06-23 15:31 | P.PNVS ---
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 Wound VAC in place It should be noted that the time of surgery patient had purulent drainage from the proximal portion of the amputation so will take a few days before patient is ready for any further surgery In the best case scenario will undergo washout of the stump and closure on Thursday but depending on what it looks like I may delay the final closure for another few days after that In the meantime patient can be safely extubated and transferred to floor when stable 06/05/2018 Patient status post guillotine amputation of the right foot Considering the amount of infection gas gangrene and purulent drainage wound VAC will remain on for next few days Will likely washout the change wound VAC on Thursday and then go ahead and closed the incision probably around Thursday06/06/2018 Considering the amount of purulent drainage and degree of infection and gas gangrene I believe it is probably leonard to postpone final closure until at least Thursday Patient should have a washout of the stump at the bedside the new wound VAC placement tomorrow 06/07/2018 Wound VAC changed today Amputation site appears to be much immersion metal cleaner Will likely closed the incision on Thursday Nothing to add at this time 06/08/2018 Patient had not had a change of wound VAC yet Wound care has been consulted but I do not know why the wound VAC was not changed Will now postpone final surgery until but wound VAC has to be changed and wound washed out today For closure of the BKA stump on Thursday06/10/2018 Patient will have serial wound vacs changed as ordered and by next the drainage and everything should be resolved to the point that patient can have closure of the BKA stump This is a unusually heavily infected purulent tissue of the calf and I do not want to close this before I am sure that is going to heal nicely and not result in a new abscess 06/11/2018 Patient stable Wound VAC changed and grateful to wound care team doing such excellent job Will likely take patient to the operating room or Thursday for hopefully a second stage procedure and closure 06/16/18 Stump appears clean, no more drainage For washout and closure tomorrow 06/17/2018 Patient taken to the operating room for washout and closure of the right BKA stump. Patient underwent amputation at the higher BKA level as planned and flap was created and the time noticed that there is more drainage from the area of the medial gastrocnemius muscle and about 100 cc of thick purulent material is extracted this area is completely opened irrigated with copious amount of saline and a new wound VAC placed At this point have no choice but to continue the wound VAC therapy before I can close this and will periodically see how patient does. Eventually we will close BK stump but in face of continued purulence he will have to be postponed for at least another week if not more 06/18/2018 Patient is status post amputation of the right leg with open stump and wound VAC Is noted during the surgery patient still had about 100 cc of isabella pus in the area of medial gastrocnemius muscle and this whole area has been opened up. Wound VAC on suction and expect a lot of drainage from this Hemoglobin 7 g/dL this morning we will transfuse 2 units PRBC Continue wound VAC changes as previously directed and hopefully by will take patient back to the operating room for another washout and hopefully closure of the stump. 06/19/2018 Wound VAC on the right BKA stump in place Hemoglobin remains stable after transfusion We will continue the wound VAC at least through this week and by the end of week I may decide to close the stump or even wait until next week for once is closed I want to minimize the chance of this getting infected 06/21/2018 Patient post 2nd stage amputation with open flap and vac. Great care by the wound care nurse Jacqueline. Will take to OR thursday or for closure of the flap 06/22/2018 Stump seems to be clean and serosanguineous drainage from the wound VAC is clearing up I do not believe that there is need to wait any longer and we can close the stump probably safely tomorrow unless I find some surprises during the surgery Tentatively patient scheduled for tomorrow for irrigation and closure of the right BKA stump 06/23/2018 Patient was scheduled for closure of the right BKA stump today however due to scheduling problems in the OR no time was available patient is rescheduled for tomorrow Objective Vital Signs / I&O: Vital Signs 06/22/18 16:00 06/22/18 20:00 06/23/18 00:00 Temperature 97.1 F L 97.2 F L 97.2 F L Pulse Rate 95 H 98 H 97 H Respiratory Rate 22 20 18 Blood Pressure 136/91 H 141/95 H 128/85 Pulse Oximetry 100 99 95 06/23/18 04:00 06/23/18 08:00 Temperature 97.6 F Pulse Rate 96 H 97 H Respiratory Rate 16 Blood Pressure 134/93 H Pulse Oximetry 98 Intake & Output 06/22/18 06/23/18 06/23/18 18:59 06:59 18:59 Intake Total 1060 / 1060 855 / 855 50 / 50 Output Total 900 / 900 1050 / 1050 Balance 160 / 160 -195 / -195 50 / 50 Weight 95.1 kg Intake: IV 100 / 100 615 / 615 50 / 50 Zosyn 3.375 GM Premix 50 ML @ 100 / 100 100 / 100 50 / 50 100 mls/hr IV.SIG Q6H LINDA Rx#: [id number] Vancomycin Inj 1,500 MG In NS 515 / 515 Inj 500 ML @ 250 mls/hr IV.SIG Q48H LINDA Rx#:[id number] Oral 960 / 960 240 / 240 Output: Urine 900 / 900 1050 / 1050 Other: Mode Setting Right BKA stump Continuous Continuous Date of Last Bowel Movement 06/21/18 06/23/18 # Bowel Movements 5 # Incontinent Bowel Movements 2 Laboratory Results - last 24 hr 06/22/18 06/22/18 06/22/18 19:30 23:49 23:49 WBC RBC Hgb Hct MCV MCH MCHC RDW Plt Count MPV Neut % (Auto) Lymph % (Auto) Childress % (Auto) Eos % (Auto) Baso % (Auto) Neut # (Auto) Lymph # (Auto) Childress # (Auto) Eos # (Auto) Baso # (Auto) WBC Differential Differential Comment PT INR Sodium 145 Potassium 5.1 D Chloride 110 H Carbon Dioxide 26.3 Anion Gap 9 BUN 12 Creatinine 1.28 Estimated GFR 59 L POC Glucose 84 Random Glucose 84 Calcium 7.7 L D Phosphorus Magnesium Total Bilirubin AST ALT Alkaline Phosphatase Total Protein Albumin Vancomycin Trough 16.8 H Random Vancomycin 06/23/18 06/23/18 06/23/18 07:09 07:09 07:09 WBC 11.4 H RBC 2.40 L Hgb 8.0 L Hct 22.9 L MCV 95.4 D MCH 33.4 MCHC 35.0 RDW 21.0 H D Plt Count 253 MPV 7.2 Neut % (Auto) 70.9 H Lymph % (Auto) 19.1 Childress % (Auto) 5.8 Eos % (Auto) 3.1 Baso % (Auto) 1.1 Neut # (Auto) 8.1 H Lymph # (Auto) 2.2 Childress # (Auto) 0.7 Eos # (Auto) 0.4 Baso # (Auto) 0.1 WBC Differential . Differential Comment Auto diff final PT 13.1 H INR 1.3 Sodium 142 Potassium 4.9 Chloride 110 H Carbon Dioxide 26.2 Anion Gap 6 BUN 13 Creatinine 1.29 Estimated GFR 58 L POC Glucose Random Glucose 78 Calcium 8.0 L Phosphorus 3.0 Magnesium 1.7 Total Bilirubin 0.2 AST 26 ALT 12 Alkaline Phosphatase 122 H Total Protein 6.2 L Albumin 0.8 L Vancomycin Trough Random Vancomycin 44.2 06/23/18 06/23/18 08:06 12:16 WBC RBC Hgb Hct MCV MCH MCHC RDW Plt Count MPV Neut % (Auto) Lymph % (Auto) Childress % (Auto) Eos % (Auto) Baso % (Auto) Neut # (Auto) Lymph # (Auto) Childress # (Auto) Eos # (Auto) Baso # (Auto) WBC Differential Differential Comment PT INR Sodium Potassium Chloride Carbon Dioxide Anion Gap BUN Creatinine Estimated GFR POC Glucose 76 75 Random Glucose Calcium Phosphorus Magnesium Total Bilirubin AST ALT Alkaline Phosphatase Total Protein Albumin Vancomycin Trough Random Vancomycin Microbiology 06/02/18 18:48 Acid Fast Bacilli Smear - Final Wound - Foot No acid fast bacilli seen Mycobacterial Culture - Preliminary No growth in 3 weeks
[2018-06-24] MEDS: Morphine Inj 4 MG/ML Vial IV.PUSH PRN ×3 (01:32→17:20)
[2018-06-24] MEDS: Piperacil/Tazo 3.375 GM Premix 50 ML IV.SIG SCH ×4 (03:19→22:02)
[2018-06-24] MEDS: Insulin NovoLOG Aspart Correctional Sugar Inj SQ SCH ×4 (07:46→22:07)
[2018-06-24] MEDS: Calcium Carbonate 500 MG Tablet PO SCH ×2 (08:08→20:20)
[2018-06-24] MEDS: Furosemide 20 MG Tablet PO SCH ×2 (08:09→17:20)
[2018-06-24] MEDS: Famotidine PF Inj 20 MG/2 ML Vial IV.PUSH SCH ×2 (08:09→20:21)
[2018-06-24] MEDS: Senna/Docusate Sodium 8.6/50 MG Tablet PO SCH ×2 (08:11→20:23)
[2018-06-24] MEDS: Sodium Chloride 0.9% 2 ML Flush BID IV.FLUSH SCH ×2 (08:11→20:23)
[2018-06-24] MEDS: Collagenase Oint 30 GM Tube TOPICAL SCH ×2 (08:13→08:20)
[2018-06-24 08:45] LABS: Baso # (Auto) 0.1 th/mm3 (0.0-0.2); Baso % (Auto) 1.1 % (0.0-2.0); Eos # (Auto) 0.4 th/mm3 (0.0-0.4); Eos % (Auto) 3.5 % (0.0-4.0); Hematocrit 24.7 % (39.0-51.0); Hemoglobin 8.4 gm/dL (13.0-17.0); Lymph # (Auto) 2.1 th/mm3 (1.0-4.8); Lymph % (Auto) 19.7 % (9.0-44.0); Mean Corpuscular HGB Conc 33.9 % (32.0-36.0); Mean Corpuscular Hemoglobin 31.7 pg (27.0-34.0); Mean Corpuscular Volume 93.6 fL (80.0-100.0); Mean Platelet Volume 7.1 fL (7.0-11.0); Mono # (Auto) 0.8 th/mm3 (0.0-0.9); Mono % (Auto) 7.3 % (0.0-8.0); Neut # (Auto) 7.2 th/mm3 (1.8-7.7); Neut % (Auto) 68.4 % (16.0-70.0); Platelet Count 295 th/mm3 (150-450); Red Blood Count 2.64 mil/mm3 (4.50-5.90); Red Cell Distribution Width 22.4 % (11.6-17.2); White Blood Count 10.5 th/mm3 (4.0-11.0)
[2018-06-24 09:22] LABS: Albumin 0.9 g/dL (3.4-5.0); Anion Gap 7 meq/L (5-15); Aspartate Aminotransferase 27 U/L (15-37); Blood Urea Nitrogen 13 mg/dL (7-18); Calcium 8.3 mg/dL (8.5-10.1); Carbon Dioxide 27.5 meq/L (21.0-32.0); Chloride 107 meq/L (98-107); Glomerular Filtration Rate 50 mL/min (>89); Magnesium 1.8 mg/dL (1.5-2.5); Potassium 4.8 meq/L (3.5-5.1); Sodium 141 meq/L (136-145)
[2018-06-24 09:24] LABS: Glucose,Random 64 mg/dL (74-106)
[2018-06-24 09:27] LABS: Alanine Aminotransferase 14 U/L (12-78); Alkaline Phosphatase 125 U/L (45-117); Phosphorus 3.3 mg/dL (2.5-4.9); Total Protein 6.5 g/dL (6.4-8.2)
[2018-06-24] MEDS ORDERED: Phenylephrine/NS 1000 MCG/10ML Syringe IV.PUSH ONE (10:20)
[2018-06-24] MEDS ORDERED: fentaNYL Citrate Inj 100 MCG/2 ML Ampul ONE (12:06)
--- NOTE | 2018-06-24 13:39 | MP ---
cc: Jean Dexter MD DATE OF OPERATION: 06/24/2018 PREOPERATIVE DIAGNOSIS: Gangrene of the right leg, status post right below-knee guillotine amputation, revision amputation and irrigation with wound VACs. POSTOPERATIVE DIAGNOSIS: Gangrene of the right leg, status post right below-knee guillotine amputation, revision amputation and irrigation with wound VACs. PROCEDURE PERFORMED: Second revision of the amputation and final closure of the posterior flap. SURGEON: Daniel Dexter MD. ANESTHESIA: General. ESTIMATED BLOOD LOSS: 50 mL. DESCRIPTION OF PROCEDURE: The patient was prepped and draped in usual fashion. The wound VAC was removed. The wound was not examined. Posterior flap had been created last time, but could not be closed due to persistent purulent infection. At this point, there is no sign of infection. The entire flap was washed out with pulsatile lavage aggressively, going all the way up behind the medial gastrocnemius and the whole area. This was done with about 3 liters of saline. Once this was completed, flap was re-tailored. First of all, another 1-1/2 inch of tibia was resected using the oscillating saw by the intrafibula. Meticulous hemostasis assured. The bone was rasped down and then a posterior flap was addressed. At this point, edematous, thickened, and clearly cannot be closed, therefore, some of the muscle was now shaved off with an amputation knife, and meticulous hemostasis obtained. This allowed for flexing the flap forward and closure. The flap was now sutured with 0 Vicryl deep layer of fascia at the fascia, and skin was closed with 2-0 Prolene. Dressing applied. The patient tolerated the procedure well. Jean Dexter MD SJ/rh , 01:07 PM , 01:14 PM
--- NOTE | 2018-06-24 15:05 | P.PNIM ---
Subjective Interval history: 53-year-old male presented to emergency department today with complaints of shortness of breath, fatigue, and extensive draining edema of the lower extremities bilaterally. Per chart review his symptoms started 5 days ago and the swelling of his lower legs and feet have progressively gotten worse over the past 5 days. The patient also has had pain in the back of both lower extremities from the knees to the toes. He denied chest pain. He has a history of type-II diabetes mellitus and congestive heart failure. He has not taken any of his regular medications for the past 3 weeks due to financial limitations. During the examination in the emergency department he was found to have gangrene of the right foot and was emergently taken to operating room for an incision and drainage with debridement of foot and ankle. Postoperatively he remains intubated and was admitted to ICU for critical care management. SUBJ: s/p Incision drainage debridement foot ankle and distal leg, for gas gangrene. Remains in septic shock on Levophed. Remains intubated sedated. Currently on vancomycin and Zosyn I have added clindamycin. Cultures and wound cultures pending . Vascular surgery consult also pending. Received 2 units PRBC for hemoglobin of 5.3 06/04/18: Patient had been weaned off all pressors. Wakes up easily follows commands. 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 WBC count remains elevated but renal function improving. Hemoglobin stable. Multiple blood cultures growing E. coli. Wound culture with E. coli, MRSA, gram-negative rods. Continue Zosyn and vancomycin 06/05: Remains off vasopressors. Alert and conversant. Encephalopathy clearing. Blood and wound organisms identified, antibiotic coverage appropriate. 06/06: Normotensive. Afebrile. Urine output acceptable. Septic picture largely over. Base deficit largely corrected. Blood sugar trending higher will convert to full diabetic diet. 10-7 Follow-up acute on chronic anemia, status post right BKA x2, MRSA, CHF, AKA , C. difficile, diabetes type 2, generalized edema. Patient seen and examined laying in bed, still complaining of pain on the right leg at 7 out of 10. Patient stated better with morphine, stated pain down to 2 or 3 after the morphine. Patient encouraged to take pain medication at this time however this , discussed to rule down later. Patient denies any diarrhea today, had one formed stool today. Patient denies any fever or chills, denies any headache or dizziness, denies any nausea or vomiting. 06-21 PATIENT TO HAVE REVISION ON RIGHT LE ON THURSDAY. DW SURGERY DR Quiles AM LABS CONTINUE CURRENT TREATMENTS SEEN SITTING ON SIDE OF BED 06-22 TO GO FOR SURGERY ON RIGHT LE ON THURSDAY NO NEW COMPLAINTS STATES DOES NOT LIKE THE FOOD DW RN AND PT AND CM 06-23 patient is scheduled to go for surgery today NOW SEEN BEFORE SURGERY MAXIMUS RN AND PT AND CM AM LABS 06-24 WENT FOR SURGERY TODAY WITH DR Quiles SEEN AFTER SURGERY REMAINS CONFUSED NEEDS SOFT RESTRAINTS AFTER SURGERY DW RN AND PT AND FAMILY WILL TRANSFUSE 2 UNITS PRBC TODAY DUE TO BLOOD LOSS DURING SURGERY AM LABS Physical Exam Vital signs: Vital Signs 06/23/18 16:00 06/23/18 20:00 06/23/18 23:04 Temperature 97.6 F 97.3 F L Pulse Rate 97 H 99 H Respiratory Rate 16 17 18 Blood Pressure 134/93 H 129/94 H Pulse Oximetry 98 97 06/24/18 00:00 06/24/18 04:00 06/24/18 08:00 Temperature 97.3 F L 97.1 F L 97.2 F L Pulse Rate 94 H 95 H 93 H Respiratory Rate 18 19 16 Blood Pressure 142/100 H 127/95 H 136/94 H Pulse Oximetry 98 97 95 06/24/18 11:46 06/24/18 12:00 06/24/18 12:15 Temperature 98 F Pulse Rate 90 93 H 94 H Respiratory Rate 16 16 16 Blood Pressure 113/69 113/70 124/81 Pulse Oximetry 98 98 98 06/24/18 12:20 Temperature 98 F Pulse Rate 92 H Respiratory Rate 16 Blood Pressure 124/81 Pulse Oximetry 98 Intake & Output 06/23/18 06/24/18 06/24/18 18:59 06:59 18:59 Intake Total 520 / 520 100 / 100 50 / 50 Output Total 1200 / 1200 1250 / 1250 50 / 50 Balance -680 / -680 -1150 / -1150 0 / 0 Weight 94.5 kg Intake: IV 100 / 100 100 / 100 50 / 50 Zosyn 3.375 GM Premix 50 ML @ 100 / 100 100 / 100 50 / 50 100 mls/hr IV.SIG Q6H LINDA Rx#: [id number] Oral 420 / 420 Output: Urine 1200 / 1200 750 / 750 Estimated Blood Loss 50 / 50 Wound Vac Amount 500 / 500 Right BKA stump 500 / 500 Other: Mode Setting L side of coccyx Continuous Right BKA stump Continuous Continuous Sacrum Continuous Date of Last Bowel Movement 06/23/18 06/23/18 # Bowel Movements 2 Narrative: GENERAL: Well-developed, well-nourished, alert and oriented x3, with no apparent distress SKIN: Warm and dry. Right below the knee stump dressed with woundvac, intact draining sanguinous on wound VAC. HEAD: Atraumatic. Normocephalic. EYES: Pupils equal and round. No scleral icterus. No injection or drainage. ENT: No nasal bleeding or discharge. Mucous membranes pink and moist. NECK: Trachea midline. No JVD. CARDIOVASCULAR: Regular rate and rhythm. lateral Hips, thigh, Bilateral lower extremity edema 1 + pitting, scrotal edema. RESPIRATORY: No accessory muscle use. Clear to auscultation. Breath sounds equal bilaterally. GASTROINTESTINAL: Abdomen soft, non-tender, nondistended. Hepatic and splenic margins not palpable. MUSCULOSKELETAL: Extremities without clubbing, cyanosis, or edema. No obvious deformities. right LE BKA stump dressed with wound VAC NEUROLOGICAL: Awake and alert. No obvious cranial nerve deficits. Motor grossly within normal limits. Generalized weakness, moves all 4 extremities. Right lower extremity with limited range of motion. normal speech. PSYCHIATRIC: Appropriate mood and affect; insight and judgment normal. - PENIS SCROTAL AREA WITH SEVERE EDEMA - Urinary Catheter Management Indwelling Urethral Catheter Cath placed during this visit: yes, but has since been removed by the nurse Reason for continuing: Decision to DC catheter Insertion date: 06/09/18 Insertion time: 13:59 Removal date: 06/09/18 Removal time: 14:57 Results - Labs CBC & Chem 7: 06/24/18 07:02 06/24/18 07:02 Laboratory Results - last 24 hr 06/23/18 06/23/18 06/24/18 16:14 19:40 07:02 WBC 10.5 RBC 2.64 L Hgb 8.4 L Hct 24.7 L MCV 93.6 MCH 31.7 MCHC 33.9 RDW 22.4 H Plt Count 295 MPV 7.1 Neut % (Auto) 68.4 Lymph % (Auto) 19.7 Cameron % (Auto) 7.3 Eos % (Auto) 3.5 Baso % (Auto) 1.1 Neut # (Auto) 7.2 Lymph # (Auto) 2.1 Cameron # (Auto) 0.8 Eos # (Auto) 0.4 Baso # (Auto) 0.1 WBC Differential . Differential Comment Auto diff final Sodium Potassium Chloride Carbon Dioxide Anion Gap BUN Creatinine Estimated GFR POC Glucose 77 77 Random Glucose Calcium Phosphorus Magnesium Total Bilirubin AST ALT Alkaline Phosphatase Total Protein Albumin Blood Type Antibody Screen MTS Gel Crossmatch 06/24/18 06/24/18 06/24/18 07:02 07:15 07:17 WBC RBC Hgb Hct MCV MCH MCHC RDW Plt Count MPV Neut % (Auto) Lymph % (Auto) Cameron % (Auto) Eos % (Auto) Baso % (Auto) Neut # (Auto) Lymph # (Auto) Cameron # (Auto) Eos # (Auto) Baso # (Auto) WBC Differential Differential Comment Sodium 141 Potassium 4.8 Chloride 107 Carbon Dioxide 27.5 Anion Gap 7 BUN 13 Creatinine 1.49 H Estimated GFR 50 L POC Glucose 76 86 Random Glucose 64 L Calcium 8.3 L Phosphorus 3.3 Magnesium 1.8 Total Bilirubin 0.2 AST 27 ALT 14 Alkaline Phosphatase 125 H Total Protein 6.5 Albumin 0.9 L Blood Type Antibody Screen MTS Gel Crossmatch 06/24/18 06/24/18 12:12 12:29 WBC RBC Hgb Hct MCV MCH MCHC RDW Plt Count MPV Neut % (Auto) Lymph % (Auto) Cameron % (Auto) Eos % (Auto) Baso % (Auto) Neut # (Auto) Lymph # (Auto) Cameron # (Auto) Eos # (Auto) Baso # (Auto) WBC Differential Differential Comment Sodium Potassium Chloride Carbon Dioxide Anion Gap BUN Creatinine Estimated GFR POC Glucose 80 Random Glucose Calcium Phosphorus Magnesium Total Bilirubin AST ALT Alkaline Phosphatase Total Protein Albumin Blood Type O Negative Antibody Screen Negative MTS Gel Crossmatch See Detail Microbiology 06/17/18 12:07 Wound - Leg Fungal Smear - Final No fungal elements seen 06/17/18 12:07 Wound - Leg Fungal Culture - Preliminary No growth in 1 week 06/17/18 12:07 Wound - Leg Acid Fast Bacilli Smear - Final No acid fast bacilli seen 06/17/18 12:07 Wound - Leg Mycobacterial Culture - Preliminary No growth in 1 week 06/02/18 18:48 Wound - Foot Acid Fast Bacilli Smear - Final No acid fast bacilli seen 06/02/18 18:48 Wound - Foot Mycobacterial Culture - Preliminary No growth in 3 weeks - Imaging ITS Impressions Venous Doppler Study 06/02/18 15:46 CONCLUSION: 1. No sonographic evidence of lower extremity DVT. 2. Bilateral lower extremity subcutaneous edema. 3. Multiple lymph nodes seen in both groins, some of which are abnormally enlarged. Recommend clinical correlation. Foot X-Ray 06/02/18 15:52 CONCLUSION: Extensive subcutaneous air. No bone fracture or dislocation Chest X-Ray 06/15/18 00:00 CONCLUSION: Bilateral effusions and consolidation. - Procedures DATE OF OPERATION: 06/24/2018 PREOPERATIVE DIAGNOSIS: Gangrene of the right leg, status post right below-knee guillotine amputation, revision amputation and irrigation with wound VACs. POSTOPERATIVE DIAGNOSIS: Gangrene of the right leg, status post right below-knee guillotine amputation, revision amputation and irrigation with wound VACs. PROCEDURE PERFORMED: Second revision of the amputation and final closure of the posterior flap. SURGEON: Daniel Dexter MD. ANESTHESIA: General. ESTIMATED BLOOD LOSS: 50 mL. DESCRIPTION OF PROCEDURE: The patient was prepped and draped in usual fashion. The wound VAC was removed. The wound was not examined. Posterior flap had been created last time, but could not be closed due to persistent purulent infection. At this point, there is no sign of infection. The entire flap was washed out with pulsatile lavage aggressively, going all the way up behind the medial gastrocnemius and the whole area. This was done with about 3 liters of saline. Once this was completed, flap was re-tailored. First of all, another 1-1/2 inch of tibia was resected using the oscillating saw by the intrafibula. Meticulous hemostasis assured. The bone was rasped down and then a posterior flap was addressed. At this point, edematous, thickened, and clearly cannot be closed, therefore, some of the muscle was now shaved off with an amputation knife, and meticulous hemostasis obtained. This allowed for flexing the flap forward and closure. The flap was now sutured with 0 Vicryl deep layer of fascia at the fascia, and skin was closed with 2-0 Prolene. Dressing applied. The patient tolerated the procedure well. MD RACHID Marin/mahin , 01:07 PM Assessment and Plan - Assessment (1) Status post below knee amputation Code(s): Z89.519 - Acquired absence of unspecified leg below knee Status: Acute (2) Gas gangrene Code(s): A48.0 - Gas gangrene Status: Acute (3) CHF (congestive heart failure) Code(s): I50.9 - Heart failure, unspecified Status: Acute (4) YOLY (acute kidney injury) Code(s): N17.9 - Acute kidney failure, unspecified Status: Acute (5) Sepsis Code(s): A41.9 - Sepsis, unspecified organism Status: Acute - Plan 53-year-old male admitted with acute septic shock, respiratory failure status post extubation and BKA. Patient has been receiving ICU care and stabilized for transfer to the hospitalist service in the medical surgical floor. Septic shock/leukocytosis/respiratory failure with intubation s/p right BKA/Gas Gangrene of the right foot 06/03/18 Status post higher BKA and flap today 06/17/18 -Broad-spectrum antibiotic with vancomycin and Zosyn, -ID Consulted, Multiple blood cultures with E. coli, wound culture with E. coli , gram-negative ankur, MRSA on 06/02/18 -Status post I&D and debridement, status post BKA by Dr. Quiles 06/03/18 and higher BKA on 06/17/18 -Septic Shock resolved -Continue Orondo and morphine IV as needed for breakthrough pain. -s/p Higher BKA 06/17/18-Vascular surgery, plan for stump closure for at least another week or more we will continue wound VAC for now -Right BKA stump with wound vac improved suction and drainage, wound care for wound VAC maintenance, assessment of dressing, discussed with nursing -Wound/leg culture no growth in 72 hours on 06/17/18, fungal culture pending, mycobacterial culture pending SURGERY TODAY 06-24--SP SECOND REVISION OF THE AMPUTATION AND FINAL CLOSURE OF THE POSTERIOR FLAP OF RIGHT LE C. difficile With diarrhea, Isolation -Continue Vanco p.o. -ID following Acute Anemia on chronic, Blood loss anemia likely due to post op blood loss and moderate wound vac drainage -hold heparin due to bleeding -transfused 2 units PRBC yesterday with Lasix in between -monitor CBC, H/H was 6.4/19.2, today 7.8/22.9, follow H&H and transfuse to keep hemoglobin greater than 7 TRANSFUSE 2 UNITS PRBC AFTER SURGERY ON 06-24 CHF/generalized edema generalized edema, Hip, Thighs, bilateral lower extremities -BNP 739 -CXray with Bilateral effusion and consolidation, on Broad-spectrum antibiotic with vancomycin and Zosyn, -continue Lasix, continue KCL replacement -monitor BMP Acute kidney injury/hypokalemia/hypocalcemia Recent Renal Pathology at [facility]: Impression: diffuse and nodular diabetic glomerulosclerosis, moderately advanced and moderate arteriosclerosis and hyalinosis arteriosclerosis -KCL and calcium replaced -Strict I's and O's. IV fluid hydration -Monitor electrolytes and creatinine level -Creatinine has improved: 1.29 on 06/18, urine output adequate. Stabilized Diabetes mellitus Type 2 -blood glucose fair controlled - diabetic diet -Insulin sliding scale DVT:Teds SCDs GI prophylaxis:-Pepcid Code Status: FULL CODE Discussed Condition With: RN AND PT AND SURGERY AND CM Discharge Planning: AFTER SURGERY IS DONE AND CLEARED (3) CHF (congestive heart failure) Qualifiers: Heart failure type: unspecified Heart failure chronicity: acute on chronic Qualified Code(s): I50.9 - Heart failure, unspecified (5) Sepsis Qualifiers: Sepsis type: sepsis due to unspecified organism Qualified Code(s): A41.9 - Sepsis, unspecified organism
[2018-06-24] MEDS ORDERED: Acetaminophen 325 MG Tablet PO PRN (16:28)
[2018-06-24] MEDS ORDERED: Sodium Chlor 0.9% Inj 250 ML IV.SIG SCH (17:00)
[2018-06-24] MEDS: Vancomycin Inj 1,500 MG in Sodium Chlor 0.9% Inj 500 ML IV.SIG SCH (22:02)
[2018-06-25] MEDS: Piperacil/Tazo 3.375 GM Premix 50 ML IV.SIG SCH ×4 (02:41→22:44)
[2018-06-25] MEDS: Morphine Inj 4 MG/ML Vial IV.PUSH PRN (03:39)
[2018-06-25 06:55] LABS: Baso # (Auto) 0.1 th/mm3 (0.0-0.2); Eos # (Auto) 0.3 th/mm3 (0.0-0.4); Hematocrit 28.5 % (39.0-51.0); Hemoglobin 9.8 gm/dL (13.0-17.0); Mean Corpuscular HGB Conc 34.4 % (32.0-36.0); Mean Corpuscular Hemoglobin 31.8 pg (27.0-34.0); Mean Corpuscular Volume 92.3 fL (80.0-100.0); Mean Platelet Volume 7.1 fL (7.0-11.0); Mono # (Auto) 1.1 th/mm3 (0.0-0.9); Mono % (Auto) 9.3 % (0.0-8.0); Neut # (Auto) 8.1 th/mm3 (1.8-7.7); Neut % (Auto) 69.7 % (16.0-70.0); Platelet Count 254 th/mm3 (150-450); Red Blood Count 3.09 mil/mm3 (4.50-5.90); Red Cell Distribution Width 20.2 % (11.6-17.2); White Blood Count 11.7 th/mm3 (4.0-11.0)
[2018-06-25 07:10] LABS: Albumin 0.8 g/dL (3.4-5.0); Anion Gap 3 meq/L (5-15); Aspartate Aminotransferase 26 U/L (15-37); Blood Urea Nitrogen 13 mg/dL (7-18); Calcium 7.9 mg/dL (8.5-10.1); Carbon Dioxide 28.2 meq/L (21.0-32.0); Chloride 109 meq/L (98-107); Glomerular Filtration Rate 48 mL/min (>89); Glucose,Random 97 mg/dL (74-106); Magnesium 1.6 mg/dL (1.5-2.5); Potassium 5.2 meq/L (3.5-5.1); Sodium 140 meq/L (136-145)
[2018-06-25 07:11] LABS: Alanine Aminotransferase 13 U/L (12-78); Phosphorus 3.9 mg/dL (2.5-4.9)
[2018-06-25 07:14] LABS: Alkaline Phosphatase 121 U/L (45-117); Total Protein 5.9 g/dL (6.4-8.2)
[2018-06-25] MEDS: Senna/Docusate Sodium 8.6/50 MG Tablet PO SCH ×2 (08:46→23:32)
[2018-06-25] MEDS: Famotidine PF Inj 20 MG/2 ML Vial IV.PUSH SCH ×2 (08:46→22:43)
[2018-06-25] MEDS: Sodium Chloride 0.9% 2 ML Flush BID IV.FLUSH SCH ×2 (08:47→22:43)
[2018-06-25] MEDS: Furosemide 20 MG Tablet PO SCH ×2 (08:47→17:13)
[2018-06-25] MEDS: Calcium Carbonate 500 MG Tablet PO SCH ×2 (08:47→22:43)
[2018-06-25] MEDS: Collagenase Oint 30 GM Tube TOPICAL SCH ×2 (08:53→08:54)
[2018-06-25] MEDS: Insulin NovoLOG Aspart Correctional Sugar Inj SQ SCH ×4 (08:54→20:32)
--- NOTE | 2018-06-25 12:42 | P.PNIM ---
Subjective Interval history: 53-year-old male presented to emergency department today with complaints of shortness of breath, fatigue, and extensive draining edema of the lower extremities bilaterally. Per chart review his symptoms started 5 days ago and the swelling of his lower legs and feet have progressively gotten worse over the past 5 days. The patient also has had pain in the back of both lower extremities from the knees to the toes. He denied chest pain. He has a history of type-II diabetes mellitus and congestive heart failure. He has not taken any of his regular medications for the past 3 weeks due to financial limitations. During the examination in the emergency department he was found to have gangrene of the right foot and was emergently taken to operating room for an incision and drainage with debridement of foot and ankle. Postoperatively he remains intubated and was admitted to ICU for critical care management. SUBJ: s/p Incision drainage debridement foot ankle and distal leg, for gas gangrene. Remains in septic shock on Levophed. Remains intubated sedated. Currently on vancomycin and Zosyn I have added clindamycin. Cultures and wound cultures pending . Vascular surgery consult also pending. Received 2 units PRBC for hemoglobin of 5.3 06/04/18: Patient had been weaned off all pressors. Wakes up easily follows commands. 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 WBC count remains elevated but renal function improving. Hemoglobin stable. Multiple blood cultures growing E. coli. Wound culture with E. coli, MRSA, gram-negative rods. Continue Zosyn and vancomycin 06/05: Remains off vasopressors. Alert and conversant. Encephalopathy clearing. Blood and wound organisms identified, antibiotic coverage appropriate. 06/06: Normotensive. Afebrile. Urine output acceptable. Septic picture largely over. Base deficit largely corrected. Blood sugar trending higher will convert to full diabetic diet. 10-7 Follow-up acute on chronic anemia, status post right BKA x2, MRSA, CHF, AKA , C. difficile, diabetes type 2, generalized edema. Patient seen and examined laying in bed, still complaining of pain on the right leg at 7 out of 10. Patient stated better with morphine, stated pain down to 2 or 3 after the morphine. Patient encouraged to take pain medication at this time however this , discussed to rule down later. Patient denies any diarrhea today, had one formed stool today. Patient denies any fever or chills, denies any headache or dizziness, denies any nausea or vomiting. 06-21 PATIENT TO HAVE REVISION ON RIGHT LE ON THURSDAY. DW SURGERY DR Quiles AM LABS CONTINUE CURRENT TREATMENTS SEEN SITTING ON SIDE OF BED 06-22 TO GO FOR SURGERY ON RIGHT LE ON THURSDAY NO NEW COMPLAINTS STATES DOES NOT LIKE THE FOOD DW RN AND PT AND CM 06-23 patient is scheduled to go for surgery today NOW SEEN BEFORE SURGERY [facility]IM[facility] RN AND PT AND CM AM LABS 06-24 WENT FOR SURGERY TODAY WITH DR Quiles SEEN AFTER SURGERY REMAINS CONFUSED NEEDS SOFT RESTRAINTS AFTER SURGERY DW RN AND PT AND FAMILY WILL TRANSFUSE 2 UNITS PRBC TODAY DUE TO BLOOD LOSS DURING SURGERY AM LABS 06-25 NO NEW COMPLAINTS SOME CONFUSION DW RN AND PT AND CM HEMOGLOBIN IS STABLE POST 2 UNITS PRBC LAST NIGHT AM LABS Physical Exam Vital signs: Vital Signs 06/24/18 16:00 06/24/18 16:38 06/24/18 16:54 Temperature 97.7 F 97.1 F L 98.6 F Pulse Rate 96 H 96 H 94 H Respiratory Rate 18 18 18 Blood Pressure 137/95 H 133/90 Pulse Oximetry 97 98 98 06/24/18 19:14 06/24/18 20:00 06/24/18 20:10 Temperature 97.2 F L 97.4 F L 97.5 F L Pulse Rate 97 H 98 H 98 H Respiratory Rate 18 18 17 Blood Pressure 136/93 H 128/86 144/99 H Pulse Oximetry 98 100 06/24/18 20:26 06/24/18 20:45 06/24/18 22:06 Temperature 97.4 F L 97.8 F Pulse Rate 98 H 98 H Respiratory Rate 17 17 17 Blood Pressure 124/89 122/88 Pulse Oximetry 99 100 06/24/18 23:05 06/25/18 00:00 06/25/18 00:05 Temperature 97.5 F L 97.4 F L Pulse Rate 93 H 92 H 94 H Respiratory Rate 17 18 Blood Pressure 128/76 128/86 Pulse Oximetry 97 100 06/25/18 02:23 06/25/18 04:00 06/25/18 07:24 Temperature 98.2 F Pulse Rate 96 H Respiratory Rate 18 18 17 Blood Pressure 124/75 Pulse Oximetry 99 06/25/18 08:00 06/25/18 12:00 Temperature 98.1 F 97.4 F L Pulse Rate 96 H 99 H Respiratory Rate 18 18 Blood Pressure 126/82 123/74 Pulse Oximetry 93 L 98 Intake & Output 06/24/18 06/25/18 06/25/18 18:59 06:59 18:59 Intake Total 100 / 100 1625 / 1625 150 / 150 Output Total 50 / 50 Balance 50 / 50 1625 / 1625 150 / 150 Weight 96.7 kg Intake: IV 100 / 100 815 / 815 150 / 150 Zosyn 3.375 GM Premix 50 ML @ 100 / 100 50 / 50 150 / 150 100 mls/hr IV.SIG Q6H [facility] Rx#: [id number] NS Inj 250 ML @ 15 mls/hr IV. 250 / 250 SIG ONCE [facility] Rx#:[id number] Vancomycin Inj 1,500 MG In NS 515 / 515 Inj 500 ML @ 250 mls/hr IV.SIG Q48H [facility] Rx#:[id number] Other Rbc As-3 Leukoreduced Unit [id number] Intake (Blood Product) Amt 0 / 0 800 / 800 Rbc As-3 Leukoreduced Unit 0 / 0 400 / 400 [id number] Rbc As-3 Leukoreduced Unit 400 / 400 [id number] Output: Estimated Blood Loss 50 / 50 Other: Mode Setting L side of coccyx Continuous Right BKA stump Continuous Sacrum Continuous # Incontinent Voids 1 Date of Last Bowel Movement 06/23/18 06/24/18 # Incontinent Bowel Movements 0 Narrative: GENERAL: Well-developed, well-nourished, alert and oriented x3, with no apparent distress SKIN: Warm and dry. Right below the knee stump dressed with woundvac, intact draining sanguinous on wound VAC. HEAD: Atraumatic. Normocephalic. EYES: Pupils equal and round. No scleral icterus. No injection or drainage. ENT: No nasal bleeding or discharge. Mucous membranes pink and moist. NECK: Trachea midline. No JVD. CARDIOVASCULAR: Regular rate and rhythm. lateral Hips, thigh, Bilateral lower extremity edema 1 + pitting, scrotal edema. RESPIRATORY: No accessory muscle use. Clear to auscultation. Breath sounds equal bilaterally. GASTROINTESTINAL: Abdomen soft, non-tender, nondistended. Hepatic and splenic margins not palpable. MUSCULOSKELETAL: Extremities without clubbing, cyanosis, or edema. No obvious deformities. right LE BKA stump dressed with wound VAC NEUROLOGICAL: Awake and alert. No obvious cranial nerve deficits. Motor grossly within normal limits. Generalized weakness, moves all 4 extremities. Right lower extremity with limited range of motion. normal speech. RIGHT LE IS DRESSED PSYCHIATRIC: Appropriate mood and affect; insight and judgment normal. - PENIS SCROTAL AREA WITH SEVERE EDEMA - Urinary Catheter Management Indwelling Urethral Catheter Cath placed during this visit: yes, but has since been removed by the nurse Reason for continuing: Decision to DC catheter Insertion date: 06/09/18 Insertion time: 13:59 Removal date: 06/09/18 Removal time: 14:57 Results - Labs CBC & Chem 7: 06/25/18 05:46 06/25/18 05:46 Laboratory Results - last 24 hr 06/17/18 06/24/18 06/24/18 02:09 12:12 16:28 WBC RBC Hgb Hct MCV MCH MCHC RDW Plt Count MPV Neut % (Auto) Lymph % (Auto) Bibb % (Auto) Eos % (Auto) Baso % (Auto) Neut # (Auto) Lymph # (Auto) Bibb # (Auto) Eos # (Auto) Baso # (Auto) WBC Differential Differential Comment Sodium Potassium Chloride Carbon Dioxide Anion Gap BUN Creatinine Estimated GFR POC Glucose Random Glucose Calcium Phosphorus Magnesium Total Bilirubin AST ALT Alkaline Phosphatase Total Protein Albumin Blood Type O Negative Antibody Screen Negative MTS Gel Crossmatch See Detail See Detail See Detail 06/24/18 06/24/18 06/25/18 17:54 20:48 00:32 WBC RBC Hgb Hct MCV MCH MCHC RDW Plt Count MPV Neut % (Auto) Lymph % (Auto) Bibb % (Auto) Eos % (Auto) Baso % (Auto) Neut # (Auto) Lymph # (Auto) Bibb # (Auto) Eos # (Auto) Baso # (Auto) WBC Differential Differential Comment Sodium Potassium Chloride Carbon Dioxide Anion Gap BUN Creatinine Estimated GFR POC Glucose 79 103 101 Random Glucose Calcium Phosphorus Magnesium Total Bilirubin AST ALT Alkaline Phosphatase Total Protein Albumin Blood Type Antibody Screen MTS Gel Crossmatch 06/25/18 06/25/18 06/25/18 05:46 05:46 08:48 WBC 11.7 H RBC 3.09 L Hgb 9.8 L Hct 28.5 L MCV 92.3 MCH 31.8 MCHC 34.4 RDW 20.2 H Plt Count 254 MPV 7.1 Neut % (Auto) 69.7 Lymph % (Auto) 17.0 Bibb % (Auto) 9.3 H Eos % (Auto) 3.0 Baso % (Auto) 1.0 Neut # (Auto) 8.1 H Lymph # (Auto) 2.0 Bibb # (Auto) 1.1 H Eos # (Auto) 0.3 Baso # (Auto) 0.1 WBC Differential . Differential Comment Auto diff final Sodium 140 Potassium 5.2 H Chloride 109 H Carbon Dioxide 28.2 Anion Gap 3 L BUN 13 Creatinine 1.54 H Estimated GFR 48 L POC Glucose 95 Random Glucose 97 Calcium 7.9 L Phosphorus 3.9 Magnesium 1.6 Total Bilirubin 0.2 AST 26 ALT 13 Alkaline Phosphatase 121 H Total Protein 5.9 L D Albumin 0.8 L Blood Type Antibody Screen MTS Gel Crossmatch Microbiology 06/17/18 12:07 Wound - Leg Fungal Smear - Final No fungal elements seen 06/17/18 12:07 Wound - Leg Fungal Culture - Preliminary No growth in 1 week 06/17/18 12:07 Wound - Leg Acid Fast Bacilli Smear - Final No acid fast bacilli seen 06/17/18 12:07 Wound - Leg Mycobacterial Culture - Preliminary No growth in 1 week - Procedures DATE OF OPERATION: 06/24/2018 PREOPERATIVE DIAGNOSIS: Gangrene of the right leg, status post right below-knee guillotine amputation, revision amputation and irrigation with wound VACs. POSTOPERATIVE DIAGNOSIS: Gangrene of the right leg, status post right below-knee guillotine amputation, revision amputation and irrigation with wound VACs. PROCEDURE PERFORMED: Second revision of the amputation and final closure of the posterior flap. SURGEON: Daniel Dexter MD. ANESTHESIA: General. ESTIMATED BLOOD LOSS: 50 mL. DESCRIPTION OF PROCEDURE: The patient was prepped and draped in usual fashion. The wound VAC was removed. The wound was not examined. Posterior flap had been created last time, but could not be closed due to persistent purulent infection. At this point, there is no sign of infection. The entire flap was washed out with pulsatile lavage aggressively, going all the way up behind the medial gastrocnemius and the whole area. This was done with about 3 liters of saline. Once this was completed, flap was re-tailored. First of all, another 1-1/2 inch of tibia was resected using the oscillating saw by the intrafibula. Meticulous hemostasis assured. The bone was rasped down and then a posterior flap was addressed. At this point, edematous, thickened, and clearly cannot be closed, therefore, some of the muscle was now shaved off with an amputation knife, and meticulous hemostasis obtained. This allowed for flexing the flap forward and closure. The flap was now sutured with 0 Vicryl deep layer of fascia at the fascia, and skin was closed with 2-0 Prolene. Dressing applied. The patient tolerated the procedure well. Jean Dexter MD SJ/ , 01:07 PM Assessment and Plan - Assessment (1) Status post below knee amputation Code(s): Z89.519 - Acquired absence of unspecified leg below knee Status: Acute (2) Gas gangrene Code(s): A48.0 - Gas gangrene Status: Acute (3) CHF (congestive heart failure) Code(s): I50.9 - Heart failure, unspecified Status: Acute (4) YOLY (acute kidney injury) Code(s): N17.9 - Acute kidney failure, unspecified Status: Acute (5) Sepsis Code(s): A41.9 - Sepsis, unspecified organism Status: Acute - Plan 53-year-old male admitted with acute septic shock, respiratory failure status post extubation and BKA. Patient has been receiving ICU care and stabilized for transfer to the hospitalist service in the medical surgical floor. Septic shock/leukocytosis/respiratory failure with intubation s/p right BKA/Gas Gangrene of the right foot 06/03/18 Status post higher BKA and flap today 06/17/18 -Broad-spectrum antibiotic with vancomycin and Zosyn, -ID Consulted, Multiple blood cultures with E. coli, wound culture with E. coli , gram-negative ankur, MRSA on 06/02/18 -Status post I&D and debridement, status post BKA by Dr. Quiles 06/03/18 and higher BKA on 06/17/18 -Septic Shock resolved -Continue Sunol and morphine IV as needed for breakthrough pain. -s/p Higher BKA 06/17/18-Vascular surgery, plan for stump closure for at least another week or more we will continue wound VAC for now -Right BKA stump with wound vac improved suction and drainage, wound care for wound VAC maintenance, assessment of dressing, discussed with nursing -Wound/leg culture no growth in 72 hours on 06/17/18, fungal culture pending, mycobacterial culture pending SURGERY TODAY 06-24--SP SECOND REVISION OF THE AMPUTATION AND FINAL CLOSURE OF THE POSTERIOR FLAP OF RIGHT LE C. difficile With diarrhea, Isolation -Continue Vanco p.o. -ID following Acute Anemia on chronic, Blood loss anemia likely due to post op blood loss and moderate wound vac drainage -hold heparin due to bleeding -transfused 2 units PRBC yesterday with Lasix in between -monitor CBC, H/H was 6.4/19.2, today 7.8/22.9, follow H&H and transfuse to keep hemoglobin greater than 7 TRANSFUSE 2 UNITS PRBC AFTER SURGERY ON 06-24 CHF/generalized edema generalized edema, Hip, Thighs, bilateral lower extremities -BNP 739 -CXray with Bilateral effusion and consolidation, on Broad-spectrum antibiotic with vancomycin and Zosyn, -continue Lasix, continue KCL replacement -monitor BMP Acute kidney injury/hypokalemia/hypocalcemia Recent Renal Pathology at [facility]: Impression: diffuse and nodular diabetic glomerulosclerosis, moderately advanced and moderate arteriosclerosis and hyalinosis arteriosclerosis -KCL and calcium replaced -Strict I's and O's. IV fluid hydration -Monitor electrolytes and creatinine level -Creatinine has improved: 1.29 on 06/18, urine output adequate. Stabilized Diabetes mellitus Type 2 -blood glucose fair controlled - diabetic diet -Insulin sliding scale DVT:Teds SCDs GI prophylaxis:-Pepcid Code Status: FULL CODE Discussed Condition With: RN AND PT AND CM Discharge Planning: AFTER SURGERY IS DONE AND CLEARED (3) CHF (congestive heart failure) Qualifiers: Heart failure type: unspecified Heart failure chronicity: acute on chronic Qualified Code(s): I50.9 - Heart failure, unspecified (5) Sepsis Qualifiers: Sepsis type: sepsis due to unspecified organism Qualified Code(s): A41.9 - Sepsis, unspecified organism
[2018-06-26] MEDS: Piperacil/Tazo 3.375 GM Premix 50 ML IV.SIG SCH ×5 (03:00→21:56)
[2018-06-26 06:19] LABS: Baso # (Auto) 0.1 th/mm3 (0.0-0.2); Baso % (Auto) 0.8 % (0.0-2.0); Eos # (Auto) 0.2 th/mm3 (0.0-0.4); Eos % (Auto) 2.5 % (0.0-4.0); Hematocrit 26.7 % (39.0-51.0); Hemoglobin 9.3 gm/dL (13.0-17.0); Lymph # (Auto) 1.7 th/mm3 (1.0-4.8); Lymph % (Auto) 17.9 % (9.0-44.0); Mean Corpuscular HGB Conc 34.6 % (32.0-36.0); Mean Corpuscular Hemoglobin 31.9 pg (27.0-34.0); Mean Corpuscular Volume 92.1 fL (80.0-100.0); Mean Platelet Volume 7.7 fL (7.0-11.0); Neut # (Auto) 6.7 th/mm3 (1.8-7.7); Neut % (Auto) 68.8 % (16.0-70.0); Platelet Count 222 th/mm3 (150-450); Red Cell Distribution Width 20.4 % (11.6-17.2); White Blood Count 9.7 th/mm3 (4.0-11.0)
[2018-06-26 06:34] LABS: Albumin 0.8 g/dL (3.4-5.0); Calcium 7.4 mg/dL (8.5-10.1); Carbon Dioxide 27.7 meq/L (21.0-32.0); Magnesium 1.6 mg/dL (1.5-2.5); Phosphorus 3.1 mg/dL (2.5-4.9); Potassium 4.8 meq/L (3.5-5.1)
[2018-06-26 06:35] LABS: Total Protein 5.8 g/dL (6.4-8.2)
[2018-06-26] MEDS: Furosemide 20 MG Tablet PO SCH ×2 (08:16→17:16)
[2018-06-26] MEDS: Calcium Carbonate 500 MG Tablet PO SCH ×2 (08:16→21:50)
[2018-06-26] MEDS: Famotidine PF Inj 20 MG/2 ML Vial IV.PUSH SCH ×2 (08:16→21:50)
[2018-06-26] MEDS: Senna/Docusate Sodium 8.6/50 MG Tablet PO SCH ×2 (08:16→21:56)
[2018-06-26] MEDS: Insulin NovoLOG Aspart Correctional Sugar Inj SQ SCH ×4 (08:22→21:49)
[2018-06-26] MEDS: Sodium Chloride 0.9% 2 ML Flush BID IV.FLUSH SCH ×2 (08:22→21:51)
[2018-06-26] MEDS: Collagenase Oint 30 GM Tube TOPICAL SCH ×2 (08:23)
--- NOTE | 2018-06-26 15:58 | P.PN ---
Subjective Interval history: Follow-up for right BKA revision, infection, C. difficile: Patient awake, alert oriented x3. Pain well controlled. 2 loose bowel movements, not watery. Eating fairly well. No chest pain, no shortness of breath. No acute changes overnight. Afebrile. Physical Exam Vital signs: Vital Signs 06/25/18 16:00 06/25/18 19:59 06/25/18 20:00 Temperature 97.5 F L 97.5 F L Pulse Rate 100 H 101 H Respiratory Rate 18 22 Blood Pressure 150/81 H 124/85 Pulse Oximetry 98 96 100 06/25/18 21:28 06/26/18 00:00 06/26/18 04:00 Temperature 97.6 F 97.6 F Pulse Rate 96 H 97 H 98 H Respiratory Rate 18 16 17 Blood Pressure 127/81 126/82 Pulse Oximetry 98 99 06/26/18 08:00 06/26/18 10:58 06/26/18 12:00 Temperature 98.6 F 97.9 F Pulse Rate 96 H 97 H Respiratory Rate 22 23 Blood Pressure 141/90 H 126/36 L Pulse Oximetry 98 98 98 Intake & Output 06/25/18 06/26/18 06/26/18 18:59 06:59 18:59 Intake Total 850 / 850 810 / 810 100 / 100 Output Total 600 / 600 900 / 900 Balance 250 / 250 -90 / -90 100 / 100 Intake: IV 250 / 250 100 / 100 100 / 100 Zosyn 3.375 GM Premix 50 ML @ 250 / 250 100 / 100 100 / 100 100 mls/hr IV.SIG Q6H [facility] Rx#: [id number] Oral 600 / 600 710 / 710 Output: Urine 600 / 600 900 / 900 Other: Date of Last Bowel Movement 06/26/18 # Bowel Movements 1 2 Narrative: GENERAL: Well-developed, well-nourished, alert and oriented x3, with no apparent distress SKIN: Warm and dry. Right BKA dressing in place. HEAD: Atraumatic. Normocephalic. EYES: Pupils equal and round. No scleral icterus. No injection or drainage. ENT: No nasal bleeding or discharge. Mucous membranes pink and moist. NECK: Trachea midline. No JVD. CARDIOVASCULAR: Regular rate and rhythm. Unable to detect any murmurs, no rubs , no gallops. Trace thigh and scrotal edema. Right upper extremity edema. RESPIRATORY: No accessory muscle use. Clear to auscultation. Breath sounds equal bilaterally. GASTROINTESTINAL: Abdomen soft, non-tender, nondistended. Hepatic and splenic margins not palpable. MUSCULOSKELETAL: Extremities without clubbing, cyanosis, or edema. No obvious deformities. right LE BKA stump with dressing intact. NEUROLOGICAL: Awake, alert oriented x3. No focal deficits. PSYCHIATRIC: Appropriate mood and affect; insight and judgment normal. - Urinary Catheter Management Indwelling Urethral Catheter Cath placed during this visit: yes, but has since been removed by the nurse Reason for continuing: Decision to DC catheter Insertion date: 06/09/18 Insertion time: 13:59 Removal date: 06/09/18 Removal time: 14:57 Results - Labs CBC & Chem 7: 06/26/18 04:56 06/26/18 04:56 Laboratory Results - last 24 hr 06/25/18 06/25/18 06/26/18 17:15 20:29 04:56 WBC 9.7 RBC 2.90 L Hgb 9.3 L Hct 26.7 L MCV 92.1 MCH 31.9 MCHC 34.6 RDW 20.4 H Plt Count 222 MPV 7.7 Neut % (Auto) 68.8 Lymph % (Auto) 17.9 Wallace % (Auto) 10.0 H Eos % (Auto) 2.5 Baso % (Auto) 0.8 Neut # (Auto) 6.7 Lymph # (Auto) 1.7 Wallace # (Auto) 1.0 H Eos # (Auto) 0.2 Baso # (Auto) 0.1 WBC Differential . Differential Comment Auto diff final Sodium Potassium Chloride Carbon Dioxide Anion Gap BUN Creatinine Estimated GFR POC Glucose 144 H 113 H Random Glucose Calcium Prot Corrected Calcium Phosphorus Magnesium Total Bilirubin AST ALT Alkaline Phosphatase Total Protein Albumin 06/26/18 06/26/18 04:56 08:22 WBC RBC Hgb Hct MCV MCH MCHC RDW Plt Count MPV Neut % (Auto) Lymph % (Auto) Wallace % (Auto) Eos % (Auto) Baso % (Auto) Neut # (Auto) Lymph # (Auto) Wallace # (Auto) Eos # (Auto) Baso # (Auto) WBC Differential Differential Comment Sodium 140 Potassium 4.8 Chloride 107 Carbon Dioxide 27.7 Anion Gap 5 BUN 14 Creatinine 1.64 H Estimated GFR 44 L POC Glucose 87 Random Glucose 96 Calcium 7.4 L* Prot Corrected Calcium 8.1 L Phosphorus 3.1 Magnesium 1.6 Total Bilirubin 0.2 AST 18 ALT 12 Alkaline Phosphatase 115 Total Protein 5.8 L Albumin 0.8 L - Procedures DATE OF OPERATION: 06/24/2018 PREOPERATIVE DIAGNOSIS: Gangrene of the right leg, status post right below-knee guillotine amputation, revision amputation and irrigation with wound VACs. POSTOPERATIVE DIAGNOSIS: Gangrene of the right leg, status post right below-knee guillotine amputation, revision amputation and irrigation with wound VACs. PROCEDURE PERFORMED: Second revision of the amputation and final closure of the posterior flap. SURGEON: Daniel Dexter MD. ANESTHESIA: General. ESTIMATED BLOOD LOSS: 50 mL. DESCRIPTION OF PROCEDURE: The patient was prepped and draped in usual fashion. The wound VAC was removed. The wound was not examined. Posterior flap had been created last time, but could not be closed due to persistent purulent infection. At this point, there is no sign of infection. The entire flap was washed out with pulsatile lavage aggressively, going all the way up behind the medial gastrocnemius and the whole area. This was done with about 3 liters of saline. Once this was completed, flap was re-tailored. First of all, another 1-1/2 inch of tibia was resected using the oscillating saw by the intrafibula. Meticulous hemostasis assured. The bone was rasped down and then a posterior flap was addressed. At this point, edematous, thickened, and clearly cannot be closed, therefore, some of the muscle was now shaved off with an amputation knife, and meticulous hemostasis obtained. This allowed for flexing the flap forward and closure. The flap was now sutured with 0 Vicryl deep layer of fascia at the fascia, and skin was closed with 2-0 Prolene. Dressing applied. The patient tolerated the procedure well. MD RACHID Marin/mahin , 01:07 PM Assessment and Plan - Assessment (1) Status post below knee amputation Code(s): Z89.519 - Acquired absence of unspecified leg below knee Status: Acute (2) Gas gangrene Code(s): A48.0 - Gas gangrene Status: Acute (3) CHF (congestive heart failure) Code(s): I50.9 - Heart failure, unspecified Status: Acute (4) YOLY (acute kidney injury) Code(s): N17.9 - Acute kidney failure, unspecified Status: Acute (5) Sepsis Code(s): A41.9 - Sepsis, unspecified organism Status: Acute - Plan 53-year-old male admitted with acute septic shock, respiratory failure status post extubation and BKA. Patient has been receiving ICU care and stabilized for transfer to the hospitalist service in the medical surgical floor. Septic shock/leukocytosis/respiratory failure with intubation s/p right BKA/Gas Gangrene of the right foot 06/03/18 Status post higher BKA and flap today 06/17/18 -Broad-spectrum antibiotic with vancomycin and Zosyn, -ID Consulted, Multiple blood cultures with E. coli, wound culture with E. coli , gram-negative ankur, MRSA on 06/02/18 -Status post I&D and debridement, status post BKA by Dr. Quiles 06/03/18 and higher BKA on 06/17/18 -Septic Shock resolved -Continue [place] and morphine IV as needed for breakthrough pain. -s/p Higher BKA 06/17/18-Vascular surgery, plan for stump closure for at least another week or more we will continue wound VAC for now -Right BKA stump with wound vac improved suction and drainage, wound care for wound VAC maintenance, assessment of dressing, discussed with nursing -Wound/leg culture no growth in 72 hours on 06/17/18, fungal culture pending, mycobacterial culture pending -s/p revision of amputation, final closure of post. flap. Wound vac removed C. difficile -Continue Vanco p.o. -ID following Acute Anemia on chronic, Blood loss anemia likely due to post op blood loss and moderate wound vac drainage -held heparin due to bleeding -S/P PRBC transfusion x 6 total since admission -Last blood transfusion, June 24. HH stable, hemoglobin 9.3, hematocrit 26.7. CHF/generalized edema-improving. -BNP 739 -CXray with Bilateral effusion and consolidation, on Broad-spectrum antibiotic with vancomycin and Zosyn, -continue Lasix, continue KCL replacement -monitor BMP Acute kidney injury/hypokalemia/hypocalcemia Recent Renal Pathology at [facility]: Impression: diffuse and nodular diabetic glomerulosclerosis, moderately advanced and moderate arteriosclerosis and hyalinosis arteriosclerosis -KCL and calcium replaced -Strict I's and O's. IV fluid hydration -Monitor electrolytes and creatinine level -Creatinine 1.64 Diabetes mellitus Type 2 -blood glucose fair controlled - diabetic diet -Insulin sliding scale DVT:Teds SCDs GI prophylaxis:-Pepcid Labs in am Code Status: Full code Discussed Condition With: RN, pt, CM Discharge Planning: Poss CIR when bed available and cleared by surgery and ID (3) CHF (congestive heart failure) Qualifiers: Heart failure type: unspecified Heart failure chronicity: acute on chronic Qualified Code(s): I50.9 - Heart failure, unspecified (5) Sepsis Qualifiers: Sepsis type: sepsis due to unspecified organism Qualified Code(s): A41.9 - Sepsis, unspecified organism
--- NOTE | 2018-06-26 16:11 | P.PNID ---
Subjective Remarks: no fever persistent diarrhea, though better sp amputation revision, closure Antibiotics: vanco IV zosyn Vanco po Past Medical History: Congestive heart failure Type 2 diabetes mellitus Cholecystectomy Allergies/Adverse Reactions: Allergies No Known Allergies Allergy (Unverified 06/02/18 15:19) Objective Vital Signs 06/25/18 19:59 06/25/18 20:00 06/25/18 21:28 Temperature 97.5 F L Pulse Rate 101 H 96 H Respiratory Rate 22 18 Blood Pressure 124/85 Pulse Oximetry 96 100 06/26/18 00:00 06/26/18 04:00 06/26/18 08:00 Temperature 97.6 F 97.6 F 98.6 F Pulse Rate 97 H 98 H 96 H Respiratory Rate 16 17 22 Blood Pressure 127/81 126/82 141/90 H Pulse Oximetry 98 99 98 06/26/18 10:58 06/26/18 12:00 Temperature 97.9 F Pulse Rate 97 H Respiratory Rate 23 Blood Pressure 126/36 L Pulse Oximetry 98 98 Intake & Output 06/25/18 06/26/18 06/26/18 18:59 06:59 18:59 Intake Total 850 / 850 810 / 810 100 / 100 Output Total 600 / 600 900 / 900 Balance 250 / 250 -90 / -90 100 / 100 Intake: IV 250 / 250 100 / 100 100 / 100 Zosyn 3.375 GM Premix 50 ML @ 250 / 250 100 / 100 100 / 100 100 mls/hr IV.SIG Q6H LINDA Rx#: [id number] Oral 600 / 600 710 / 710 Output: Urine 600 / 600 900 / 900 Other: Date of Last Bowel Movement 06/26/18 # Bowel Movements 1 2 06/17/18 12:07 Wound - Leg Fungal Smear - Final No fungal elements seen 06/17/18 12:07 Wound - Leg Fungal Culture - Preliminary No growth in 1 week 06/17/18 12:07 Wound - Leg Acid Fast Bacilli Smear - Final No acid fast bacilli seen 06/17/18 12:07 Wound - Leg Mycobacterial Culture - Preliminary No growth in 1 week 06/02/18 18:48 Wound - Foot Acid Fast Bacilli Smear - Final No acid fast bacilli seen 06/02/18 18:48 Wound - Foot Mycobacterial Culture - Preliminary No growth in 3 weeks Lab - Hematology Results 06/25/18 06/26/18 05:46 04:56 WBC 11.7 H 9.7 RBC 3.09 L 2.90 L Hgb 9.8 L 9.3 L Hct 28.5 L 26.7 L MCV 92.3 92.1 MCH 31.8 31.9 MCHC 34.4 34.6 RDW 20.2 H 20.4 H Plt Count 254 222 MPV 7.1 7.7 Neut % (Auto) 69.7 68.8 Lymph % (Auto) 17.0 17.9 [place] % (Auto) 9.3 H 10.0 H Eos % (Auto) 3.0 2.5 Baso % (Auto) 1.0 0.8 Neut # (Auto) 8.1 H 6.7 Lymph # (Auto) 2.0 1.7 [place] # (Auto) 1.1 H 1.0 H Eos # (Auto) 0.3 0.2 Baso # (Auto) 0.1 0.1 WBC Differential . . Differential Comment Auto diff final Auto diff final Lab - Chemistry Results 06/24/18 06/24/18 06/25/18 17:54 20:48 00:32 Sodium Potassium Chloride Carbon Dioxide Anion Gap BUN Creatinine Estimated GFR POC Glucose 79 103 101 Random Glucose Calcium Prot Corrected Calcium Phosphorus Magnesium Total Bilirubin AST ALT Alkaline Phosphatase Total Protein Albumin 06/25/18 06/25/18 06/25/18 05:46 08:48 17:15 Sodium 140 Potassium 5.2 H Chloride 109 H Carbon Dioxide 28.2 Anion Gap 3 L BUN 13 Creatinine 1.54 H Estimated GFR 48 L POC Glucose 95 144 H Random Glucose 97 Calcium 7.9 L Prot Corrected Calcium Phosphorus 3.9 Magnesium 1.6 Total Bilirubin 0.2 AST 26 ALT 13 Alkaline Phosphatase 121 H Total Protein 5.9 L D Albumin 0.8 L 06/25/18 06/26/18 06/26/18 20:29 04:56 08:22 Sodium 140 Potassium 4.8 Chloride 107 Carbon Dioxide 27.7 Anion Gap 5 BUN 14 Creatinine 1.64 H Estimated GFR 44 L POC Glucose 113 H 87 Random Glucose 96 Calcium 7.4 L* Prot Corrected Calcium 8.1 L Phosphorus 3.1 Magnesium 1.6 Total Bilirubin 0.2 AST 18 ALT 12 Alkaline Phosphatase 115 Total Protein 5.8 L Albumin 0.8 L Imaging: ITS Impressions Venous Doppler Study 06/02/18 15:46 CONCLUSION: 1. No sonographic evidence of lower extremity DVT. 2. Bilateral lower extremity subcutaneous edema. 3. Multiple lymph nodes seen in both groins, some of which are abnormally enlarged. Recommend clinical correlation. Foot X-Ray 06/02/18 15:52 CONCLUSION: Extensive subcutaneous air. No bone fracture or dislocation Chest X-Ray 06/15/18 00:00 CONCLUSION: Bilateral effusions and consolidation. Physical Exam: GENERAL: , NAD SKIN: Warm and dry. No rash HEAD: Atraumatic. Normocephalic. EYES: Pupils equal and round. No scleral icterus. No injection or drainage. ENT: No nasal bleeding or discharge. Mucous membranes pink and moist. NECK: No JVD. CARDIOVASCULAR: Regular rate and rhythm. RESPIRATORY: No accessory muscle use. Clear to auscultation. Breath sounds equal bilaterally. GASTROINTESTINAL: Abdomen soft, non-tender, not distended. + mildly tender to palpation MUSCULOSKELETAL: Extremities without clubbing, cyanosis, + much improved soft pitting edema surg dressing on RLE p BKA NEUROLOGICAL: Non-focal PSYCHIATRIC: depressed Assessment and Plan - Plan Impression Sepsis, E coli - better Gas gangrene RLE, S/P guillotine amputation RBKA, C/S polymicrobial life treatening severe R foot DFI Gas gangrene R foot, polimicrobial mixed aerobic/anaerobic infx, including MRSA Acutre VDRF- resolved ARF - resolved C difficile colitis: improving Recommendation Continue zosyn Continue vancomycin for MRSA co-infx anticipate transition to po abx next week Continue po Vancomycin for C diff;
[2018-06-26] MEDS ORDERED: Pharmacy Ordered Lab Info OTHER ONE (20:45)
[2018-06-27] MEDS: Vancomycin Inj 1,500 MG in Sodium Chlor 0.9% Inj 500 ML IV.SIG SCH ×2 (00:38→15:01)
[2018-06-27] MEDS: Piperacil/Tazo 3.375 GM Premix 50 ML IV.SIG SCH ×5 (03:40→21:00)
[2018-06-27 07:00] LABS: Calcium 7.5 mg/dL (8.5-10.1)
[2018-06-27 07:02] LABS: Vancomycin,Random 13.8 Comment
[2018-06-27] MEDS: Collagenase Oint 30 GM Tube TOPICAL SCH ×2 (08:33→08:49)
[2018-06-27] MEDS: Senna/Docusate Sodium 8.6/50 MG Tablet PO SCH ×2 (08:34→20:57)
[2018-06-27] MEDS: Famotidine PF Inj 20 MG/2 ML Vial IV.PUSH SCH ×2 (08:34→20:55)
[2018-06-27] MEDS: Insulin NovoLOG Aspart Correctional Sugar Inj SQ SCH ×4 (08:36→20:51)
[2018-06-27] MEDS: Calcium Carbonate 500 MG Tablet PO SCH ×2 (08:38→20:55)
[2018-06-27] MEDS: Sodium Chloride 0.9% 2 ML Flush PRN IV.FLUSH (08:39)
[2018-06-27] MEDS: Sodium Chloride 0.9% 2 ML Flush BID IV.FLUSH SCH (08:40)
[2018-06-27] MEDS: Furosemide 20 MG Tablet PO SCH ×2 (08:48→17:59)
--- NOTE | 2018-06-27 11:48 | P.PNIM ---
Subjective Interval history: 53-year-old male presented to emergency department today with complaints of shortness of breath, fatigue, and extensive draining edema of the lower extremities bilaterally. Per chart review his symptoms started 5 days ago and the swelling of his lower legs and feet have progressively gotten worse over the past 5 days. The patient also has had pain in the back of both lower extremities from the knees to the toes. He denied chest pain. He has a history of type-II diabetes mellitus and congestive heart failure. He has not taken any of his regular medications for the past 3 weeks due to financial limitations. During the examination in the emergency department he was found to have gangrene of the right foot and was emergently taken to operating room for an incision and drainage with debridement of foot and ankle. Postoperatively he remains intubated and was admitted to ICU for critical care management. SUBJ: s/p Incision drainage debridement foot ankle and distal leg, for gas gangrene. Remains in septic shock on Levophed. Remains intubated sedated. Currently on vancomycin and Zosyn I have added clindamycin. Cultures and wound cultures pending . Vascular surgery consult also pending. Received 2 units PRBC for hemoglobin of 5.3 06/04/18: Patient had been weaned off all pressors. Wakes up easily follows commands. 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 WBC count remains elevated but renal function improving. Hemoglobin stable. Multiple blood cultures growing E. coli. Wound culture with E. coli, MRSA, gram-negative rods. Continue Zosyn and vancomycin 06/05: Remains off vasopressors. Alert and conversant. Encephalopathy clearing. Blood and wound organisms identified, antibiotic coverage appropriate. 06/06: Normotensive. Afebrile. Urine output acceptable. Septic picture largely over. Base deficit largely corrected. Blood sugar trending higher will convert to full diabetic diet. 10-7 Follow-up acute on chronic anemia, status post right BKA x2, MRSA, CHF, AKA , C. difficile, diabetes type 2, generalized edema. Patient seen and examined laying in bed, still complaining of pain on the right leg at 7 out of 10. Patient stated better with morphine, stated pain down to 2 or 3 after the morphine. Patient encouraged to take pain medication at this time however this , discussed to rule down later. Patient denies any diarrhea today, had one formed stool today. Patient denies any fever or chills, denies any headache or dizziness, denies any nausea or vomiting. 06-21 PATIENT TO HAVE REVISION ON RIGHT LE ON THURSDAY. DW SURGERY DR Quiles AM LABS CONTINUE CURRENT TREATMENTS SEEN SITTING ON SIDE OF BED 06-22 TO GO FOR SURGERY ON RIGHT LE ON THURSDAY NO NEW COMPLAINTS STATES DOES NOT LIKE THE FOOD DW RN AND PT AND CM 06-23 patient is scheduled to go for surgery today NOW SEEN BEFORE SURGERY [facility] RN AND PT AND CM AM LABS 06-24 WENT FOR SURGERY TODAY WITH DR Quiles SEEN AFTER SURGERY REMAINS CONFUSED NEEDS SOFT RESTRAINTS AFTER SURGERY DW RN AND PT AND FAMILY WILL TRANSFUSE 2 UNITS PRBC TODAY DUE TO BLOOD LOSS DURING SURGERY AM LABS 06-25 NO NEW COMPLAINTS SOME CONFUSION DW RN AND PT AND CM HEMOGLOBIN IS STABLE POST 2 UNITS PRBC LAST NIGHT AM LABS 06-26 Follow-up for right BKA revision, infection, C. difficile: Patient awake , alert oriented x3. Pain well controlled. 2 loose bowel movements, not watery. Eating fairly well. No chest pain, no shortness of breath. No acute changes overnight. Afebrile. 06-27 PODIATRY [facility] RN AND PATIENT CONTINUE CURRENT TREATMENTS AT THIS TIME AM LABS Physical Exam Vital signs: Vital Signs 06/26/18 12:00 06/26/18 16:00 06/26/18 17:27 Temperature 97.9 F 98.0 F Pulse Rate 97 H 100 H Respiratory Rate 23 22 Blood Pressure 126/36 L 155/91 H Pulse Oximetry 98 99 99 06/26/18 20:00 06/27/18 00:00 06/27/18 03:55 Temperature 97.8 F 98.8 F 98.1 F Pulse Rate 98 H 92 H 96 H Respiratory Rate 15 18 17 Blood Pressure 129/89 94/54 L 132/90 Pulse Oximetry 99 98 97 06/27/18 04:00 06/27/18 08:00 Temperature 97.4 F L Pulse Rate 90 91 H Respiratory Rate 16 23 Blood Pressure 130/94 H Pulse Oximetry 97 Intake & Output 06/26/18 06/27/18 06/27/18 18:59 06:59 18:59 Intake Total 1060 / 1060 345 / 345 50 / 50 Output Total 450 / 450 Balance 1060 / 1060 -105 / -105 50 / 50 Weight 87.8 kg Intake: IV 100 / 100 105 / 105 50 / 50 Zosyn 3.375 GM Premix 50 ML @ 100 / 100 105 / 105 50 / 50 100 mls/hr IV.SIG Q6H LINDA Rx#: [id number] Oral 960 / 960 240 / 240 Output: Urine 450 / 450 Other: # Voids 4 1 Date of Last Bowel Movement 06/26/18 # Incontinent Bowel Movements 1 Narrative: GENERAL: Well-developed, well-nourished, alert and oriented x3, with no apparent distress SKIN: Warm and dry. Right BKA dressing in place. HEAD: Atraumatic. Normocephalic. EYES: Pupils equal and round. No scleral icterus. No injection or drainage. ENT: No nasal bleeding or discharge. Mucous membranes pink and moist. NECK: Trachea midline. No JVD. CARDIOVASCULAR: Regular rate and rhythm. Unable to detect any murmurs, no rubs , no gallops. Trace thigh and scrotal edema. Right upper extremity edema. RESPIRATORY: No accessory muscle use. Clear to auscultation. Breath sounds equal bilaterally. GASTROINTESTINAL: Abdomen soft, non-tender, nondistended. Hepatic and splenic margins not palpable. MUSCULOSKELETAL: Extremities without clubbing, cyanosis, or edema. No obvious deformities. right LE BKA stump with dressing intact. NEUROLOGICAL: Awake, alert oriented x3. No focal deficits. PSYCHIATRIC: Appropriate mood and affect; insight and judgment normal. - Urinary Catheter Management Indwelling Urethral Catheter Cath placed during this visit: yes, but has since been removed by the nurse Reason for continuing: Decision to DC catheter Insertion date: 06/09/18 Insertion time: 13:59 Removal date: 06/09/18 Removal time: 14:57 Results - Labs CBC & Chem 7: 06/26/18 04:56 06/27/18 06:02 Laboratory Results - last 24 hr 06/24/18 06/26/18 06/26/18 16:28 17:16 19:58 Sodium Potassium Chloride Carbon Dioxide Anion Gap BUN Creatinine Estimated GFR POC Glucose 85 125 H Random Glucose Calcium Random Vancomycin MTS Gel Crossmatch See Detail 06/27/18 06/27/18 06:02 07:56 Sodium 138 Potassium 5.0 Chloride 109 H Carbon Dioxide 24.0 Anion Gap 5 BUN 15 Creatinine 1.63 H Estimated GFR 45 L POC Glucose 111 H Random Glucose 102 Calcium 7.5 L Random Vancomycin 13.8 MTS Gel Crossmatch - Procedures DATE OF OPERATION: 06/24/2018 PREOPERATIVE DIAGNOSIS: Gangrene of the right leg, status post right below-knee guillotine amputation, revision amputation and irrigation with wound VACs. POSTOPERATIVE DIAGNOSIS: Gangrene of the right leg, status post right below-knee guillotine amputation, revision amputation and irrigation with wound VACs. PROCEDURE PERFORMED: Second revision of the amputation and final closure of the posterior flap. SURGEON: Daniel Dexter MD. ANESTHESIA: General. ESTIMATED BLOOD LOSS: 50 mL. DESCRIPTION OF PROCEDURE: The patient was prepped and draped in usual fashion. The wound VAC was removed. The wound was not examined. Posterior flap had been created last time, but could not be closed due to persistent purulent infection. At this point, there is no sign of infection. The entire flap was washed out with pulsatile lavage aggressively, going all the way up behind the medial gastrocnemius and the whole area. This was done with about 3 liters of saline. Once this was completed, flap was re-tailored. First of all, another 1-1/2 inch of tibia was resected using the oscillating saw by the intrafibula. Meticulous hemostasis assured. The bone was rasped down and then a posterior flap was addressed. At this point, edematous, thickened, and clearly cannot be closed, therefore, some of the muscle was now shaved off with an amputation knife, and meticulous hemostasis obtained. This allowed for flexing the flap forward and closure. The flap was now sutured with 0 Vicryl deep layer of fascia at the fascia, and skin was closed with 2-0 Prolene. Dressing applied. The patient tolerated the procedure well. MD RACHID Marin/mahin , 01:07 PM Assessment and Plan - Assessment (1) Status post below knee amputation Code(s): Z89.519 - Acquired absence of unspecified leg below knee Status: Acute (2) Gas gangrene Code(s): A48.0 - Gas gangrene Status: Acute (3) CHF (congestive heart failure) Code(s): I50.9 - Heart failure, unspecified Status: Acute (4) YOLY (acute kidney injury) Code(s): N17.9 - Acute kidney failure, unspecified Status: Acute (5) Sepsis Code(s): A41.9 - Sepsis, unspecified organism Status: Acute - Plan 53-year-old male admitted with acute septic shock, respiratory failure status post extubation and BKA. Patient has been receiving ICU care and stabilized for transfer to the hospitalist service in the medical surgical floor. Septic shock/leukocytosis/respiratory failure with intubation s/p right BKA/Gas Gangrene of the right foot 06/03/18 Status post higher BKA and flap today 06/17/18 -Broad-spectrum antibiotic with vancomycin and Zosyn, -ID Consulted, Multiple blood cultures with E. coli, wound culture with E. coli , gram-negative ankur, MRSA on 06/02/18 -Status post I&D and debridement, status post BKA by Dr. Quiles 06/03/18 and higher BKA on 06/17/18 -Septic Shock resolved -Continue [place] and morphine IV as needed for breakthrough pain. -s/p Higher BKA 06/17/18-Vascular surgery, plan for stump closure for at least another week or more we will continue wound VAC for now -Right BKA stump with wound vac improved suction and drainage, wound care for wound VAC maintenance, assessment of dressing, discussed with nursing -Wound/leg culture no growth in 72 hours on 06/17/18, fungal culture pending, mycobacterial culture pending -s/p revision of amputation, final closure of post. flap. Wound vac removed C. difficile -Continue Vanco p.o. -ID following Acute Anemia on chronic, Blood loss anemia likely due to post op blood loss and moderate wound vac drainage -held heparin due to bleeding -S/P PRBC transfusion x 6 total since admission -Last blood transfusion, June 24. HH stable, hemoglobin 9.3, hematocrit 26.7. CHF/generalized edema-improving. -BNP 739 -CXray with Bilateral effusion and consolidation, on Broad-spectrum antibiotic with vancomycin and Zosyn, -continue Lasix, continue KCL replacement -monitor BMP Acute kidney injury/hypokalemia/hypocalcemia Recent Renal Pathology at [facility]: Impression: diffuse and nodular diabetic glomerulosclerosis, moderately advanced and moderate arteriosclerosis and hyalinosis arteriosclerosis -KCL and calcium replaced -Strict I's and O's. IV fluid hydration -Monitor electrolytes and creatinine level -Creatinine 1.64 Diabetes mellitus Type 2 -blood glucose fair controlled - diabetic diet -Insulin sliding scale DVT:Teds SCDs GI prophylaxis:-Pepcid Code Status: FULL CODE Discussed Condition With: RN AND PT AND CM AND PODIATRY Discharge Planning: AFTER SURGERY IS DONE AND CLEARED (3) CHF (congestive heart failure) Qualifiers: Heart failure type: unspecified Heart failure chronicity: acute on chronic Qualified Code(s): I50.9 - Heart failure, unspecified (5) Sepsis Qualifiers: Sepsis type: sepsis due to unspecified organism Qualified Code(s): A41.9 - Sepsis, unspecified organism
--- NOTE | 2018-06-27 12:29 | P.PNPOD ---
Subjective Interval history: Patient seen bedside. No concerns or complaints. Denies any nausea vomiting fevers or chills. Denies any pain to left foot. Physical Exam Vital signs: Vital Signs 06/26/18 16:00 06/26/18 17:27 06/26/18 20:00 Temperature 98.0 F 97.8 F Pulse Rate 100 H 98 H Respiratory Rate 22 15 Blood Pressure 155/91 H 129/89 Pulse Oximetry 99 99 99 06/27/18 00:00 06/27/18 03:55 06/27/18 04:00 Temperature 98.8 F 98.1 F Pulse Rate 92 H 96 H 90 Respiratory Rate 18 17 16 Blood Pressure 94/54 L 132/90 Pulse Oximetry 98 97 06/27/18 08:00 Temperature 97.4 F L Pulse Rate 91 H Respiratory Rate 23 Blood Pressure 130/94 H Pulse Oximetry 97 Intake & Output 06/26/18 06/27/18 06/27/18 18:59 06:59 18:59 Intake Total 1060 / 1060 345 / 345 50 / 50 Output Total 450 / 450 Balance 1060 / 1060 -105 / -105 50 / 50 Weight 87.8 kg Intake: IV 100 / 100 105 / 105 50 / 50 Zosyn 3.375 GM Premix 50 ML @ 100 / 100 105 / 105 50 / 50 100 mls/hr IV.SIG Q6H [facility] Rx#: [id number] Oral 960 / 960 240 / 240 Output: Urine 450 / 450 Other: # Voids 4 1 Date of Last Bowel Movement 06/26/18 # Incontinent Bowel Movements 1 Narrative: Left plantar heel ulceration noted with no hyperkeratotic borders and fibrotic eschar base. No surrounding edema or erythema noted. Palpable DP PT pulses left lower extremity. Capillary refill time intact to digits x5 left foot. 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 Heel to left foot not offloaded. Medications and Allergies Active Medications: Active Medications Acetaminophen (Tylenol) 650 mg PO Q4H PRN PRN Reason: Temp > 100.4 Acetaminophen (Tylenol) 650 mg PO Q4H PRN PRN Reason: SEE LABEL COMMENTS Last Admin: 06/24/18 19:21 Dose: 650 mg Hydrocodone Bitart/Acetaminophen ([place] 7.5/325) 1 tab PO Q4H PRN PRN Reason: PAIN SCALE 6 TO 10 Last Admin: 06/27/18 03:41 Dose: 1 tab Al Hydroxide/Mg Hydroxide (Milk Of Magnesia Liq) 30 ml PO Q12H PRN PRN Reason: Mild Constipation Albuterol (Duoneb Neb (Prn)) 1 ampul NEB Q4HR NEB PRN PRN Reason: sob Last Admin: 06/25/18 21:24 Dose: 1 ampul Bisacodyl (Dulcolax Supp) 10 mg RECTAL DAILY PRN PRN Reason: SEVERE CONSITIPATION Calcium Carbonate (Oscal) 500 mg PO BID [facility] Last Admin: 06/27/18 08:38 Dose: 500 mg Collagenase (Santyl Oint) 1 applicatio TOPICAL DAILY [facility] Last Admin: 06/27/18 08:49 Dose: 1 applicatio Collagenase (Santyl Oint) 1 applicatio TOPICAL DAILY [facility] Last Admin: 06/27/18 08:33 Dose: 1 applicatio Dextrose (D50w Vial) 50 ml IV.PUSH UNSCH PRN PRN Reason: PER HYPOGLYCEMIA PROTOCOL Diphenhydramine HCl (Benadryl) 25 mg PO Q4H PRN PRN Reason: SEE LABEL COMMENTS Last Admin: 06/24/18 19:22 Dose: 25 mg Famotidine (Pepcid Pf Inj) 20 mg IV.PUSH Q12HR [facility] Last Admin: 06/27/18 08:34 Dose: 20 mg Furosemide (Lasix) 20 mg PO BID@0900,1800 [facility] Last Admin: 06/27/18 08:48 Dose: 20 mg Glucagon (Glucagon Inj) 1 mg OTHER UNSCH PRN PRN Reason: for Hypoglycemia Protocol Piperacillin/Tazobactam/Dextrose (Zosyn 3.375 Gm Premix) 50 mls @ 100 mls/hr IV.SIG Q6H [facility] Last Admin: 06/27/18 08:39 Dose: 100 mls/hr Vancomycin HCl 1,500 mg/ (Sodium Chloride) 515 mls @ 250 mls/hr IV.SIG Q48H [facility] Last Admin: 06/27/18 00:38 Dose: Not Given Insulin Aspart (Novolog Insulin Correctional Sugar Inj) 0 unit SQ ACHS [facility]; Protocol Last Admin: 06/27/18 08:36 Dose: Not Given Lactulose (Lactulose Liq) 30 ml PO DAILY PRN PRN Reason: SEVERE CONSITIPATION Morphine Sulfate (Morphine Inj) 3 mg IV.PUSH Q4H PRN PRN Reason: BREAKTHROUGH PAIN Last Admin: 06/25/18 03:39 Dose: 3 mg Ondansetron HCl (Zofran Inj) 4 mg IV.PUSH Q6H PRN PRN Reason: NAUSEA OR VOMITING Pharmacy Profile Note (Vancomycin Consult Pharmacy) 1 each OTHER UNSCH PRN PRN Reason: Pharmacy to dose Potassium Chloride (K-Dur) 20 meq PO BID [facility] Last Admin: 06/27/18 08:36 Dose: 20 meq Senna/Docusate Sodium (Bee-Colace) 1 tab PO BID [facility] Last Admin: 06/27/18 08:34 Dose: 1 tab Sennosides (Senokot) 17.2 mg PO Q12H PRN PRN Reason: Moderate Constipation Sodium Chloride (Ns Flush) 2 ml IV.FLUSH BID [facility] Last Admin: 06/27/18 08:40 Dose: 2 ml Sodium Chloride (Ns Flush) 2 ml IV.FLUSH PRN PRN PRN Reason: FLUSH AFTER USING IV ACCESS Last Admin: 06/27/18 08:39 Dose: 2 ml Terbutaline Sulfate (Brethine Inj) 1 mg SQ UNSCH PRN PRN Reason: For Extravasation Vancomycin HCl (Vancomycin Po) 250 mg PO QID [facility] Last Admin: 06/27/18 08:48 Dose: 250 mg Allergies Allergy/AdvReac Type Severity Reaction Status Date / Time No Known Allergies Allergy Unverified 06/02/18 15:19 Home Medications Medication Instructions Recorded Confirmed Type aspirin 81 mg PO DAILY 06/02/18 06/02/18 History atorvastatin [Lipitor] 40 mg PO DAILY 06/02/18 06/02/18 History bumetanide 2 mg PO DAILY 06/02/18 06/02/18 History carvedilol [Coreg] 25 mg PO BID 06/02/18 06/02/18 History chlorthalidone 25 mg PO DAILY 06/02/18 06/02/18 History folic acid 1 mg PO DAILY 06/02/18 06/02/18 History lisinopril 5 mg PO DAILY 06/02/18 06/02/18 History Results - Labs CBC & Chem 7: 06/26/18 04:56 06/27/18 06:02 Laboratory Results - last 24 hr 06/24/18 06/26/18 06/26/18 16:28 17:16 19:58 Sodium Potassium Chloride Carbon Dioxide Anion Gap BUN Creatinine Estimated GFR POC Glucose 85 125 H Random Glucose Calcium Random Vancomycin MTS Gel Crossmatch See Detail 06/27/18 06/27/18 06:02 07:56 Sodium 138 Potassium 5.0 Chloride 109 H Carbon Dioxide 24.0 Anion Gap 5 BUN 15 Creatinine 1.63 H Estimated GFR 45 L POC Glucose 111 H Random Glucose 102 Calcium 7.5 L Random Vancomycin 13.8 MTS Gel Crossmatch - Procedures DATE OF OPERATION: 06/24/2018 PREOPERATIVE DIAGNOSIS: Gangrene of the right leg, status post right below-knee guillotine amputation, revision amputation and irrigation with wound VACs. POSTOPERATIVE DIAGNOSIS: Gangrene of the right leg, status post right below-knee guillotine amputation, revision amputation and irrigation with wound VACs. PROCEDURE PERFORMED: Second revision of the amputation and final closure of the posterior flap. SURGEON: Daniel Dexter MD. ANESTHESIA: General. ESTIMATED BLOOD LOSS: 50 mL. DESCRIPTION OF PROCEDURE: The patient was prepped and draped in usual fashion. The wound VAC was removed. The wound was not examined. Posterior flap had been created last time, but could not be closed due to persistent purulent infection. At this point, there is no sign of infection. The entire flap was washed out with pulsatile lavage aggressively, going all the way up behind the medial gastrocnemius and the whole area. This was done with about 3 liters of saline. Once this was completed, flap was re-tailored. First of all, another 1-1/2 inch of tibia was resected using the oscillating saw by the intrafibula. Meticulous hemostasis assured. The bone was rasped down and then a posterior flap was addressed. At this point, edematous, thickened, and clearly cannot be closed, therefore, some of the muscle was now shaved off with an amputation knife, and meticulous hemostasis obtained. This allowed for flexing the flap forward and closure. The flap was now sutured with 0 Vicryl deep layer of fascia at the fascia, and skin was closed with 2-0 Prolene. Dressing applied. The patient tolerated the procedure well. 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 - Gas gangrene Status: Acute (3) Sepsis Code(s): A41.9 - Sepsis, unspecified organism Status: Acute - Plan 53-year-old male status post below the knee amputation to right lower extremity with left plantar heel ulceration Daily wound care to be performed by nursing Wound care orders placedplease apply Santyl with moist to dry dressing to plantar heel ulceration daily We will continue to monitor progress of left heel ulcer while patient is in house Patient to follow-up with academic manager/wound care once he is discharged, please discharge with Santyl (3) Sepsis Qualifiers: Sepsis type: sepsis due to unspecified organism Qualified Code(s): A41.9 - Sepsis, unspecified organism
[2018-06-28] MEDS: Sodium Chloride 0.9% 2 ML Flush BID IV.FLUSH SCH ×3 (00:14→21:38)
[2018-06-28] MEDS: Piperacil/Tazo 3.375 GM Premix 50 ML IV.SIG SCH ×4 (03:23→21:39)
[2018-06-28] MEDS: Insulin NovoLOG Aspart Correctional Sugar Inj SQ SCH ×4 (09:38→21:38)
[2018-06-28] MEDS: Calcium Carbonate 500 MG Tablet PO SCH ×2 (09:39→21:38)
[2018-06-28] MEDS: Furosemide 20 MG Tablet PO SCH ×2 (09:39→18:05)
[2018-06-28] MEDS: Senna/Docusate Sodium 8.6/50 MG Tablet PO SCH ×2 (09:40→22:28)
[2018-06-28] MEDS: Famotidine PF Inj 20 MG/2 ML Vial IV.PUSH SCH ×2 (09:40→21:39)
[2018-06-28] MEDS: Collagenase Oint 30 GM Tube TOPICAL SCH ×2 (09:41)
[2018-06-28 09:45] LABS: Baso # (Auto) 0.1 th/mm3 (0.0-0.2); Baso % (Auto) 1.1 % (0.0-2.0); Eos # (Auto) 0.5 th/mm3 (0.0-0.4); Eos % (Auto) 5.1 % (0.0-4.0); Hematocrit 32.2 % (39.0-51.0); Hemoglobin 10.9 gm/dL (13.0-17.0); Lymph # (Auto) 1.9 th/mm3 (1.0-4.8); Lymph % (Auto) 18.8 % (9.0-44.0); Mean Corpuscular HGB Conc 33.8 % (32.0-36.0); Mean Corpuscular Hemoglobin 31.4 pg (27.0-34.0); Mono # (Auto) 0.8 th/mm3 (0.0-0.9); Mono % (Auto) 7.5 % (0.0-8.0); Neut # (Auto) 6.8 th/mm3 (1.8-7.7); Neut % (Auto) 67.5 % (16.0-70.0); Platelet Count 308 th/mm3 (150-450); Red Blood Count 3.47 mil/mm3 (4.50-5.90); Red Cell Distribution Width 20.3 % (11.6-17.2); White Blood Count 10.1 th/mm3 (4.0-11.0)
[2018-06-28 10:11] LABS: Albumin 0.9 g/dL (3.4-5.0); Anion Gap 5 meq/L (5-15); Aspartate Aminotransferase 22 U/L (15-37); Blood Urea Nitrogen 17 mg/dL (7-18); Calcium 7.7 mg/dL (8.5-10.1); Chloride 107 meq/L (98-107); Glomerular Filtration Rate 47 mL/min (>89); Glucose,Random 153 mg/dL (74-106); Magnesium 1.8 mg/dL (1.5-2.5); Potassium 4.4 meq/L (3.5-5.1); Sodium 140 meq/L (136-145)
[2018-06-28 10:16] LABS: Alanine Aminotransferase 14 U/L (12-78); Alkaline Phosphatase 136 U/L (45-117); Phosphorus 2.7 mg/dL (2.5-4.9); Total Protein 6.4 g/dL (6.4-8.2)
--- NOTE | 2018-06-28 12:44 | P.PNIM ---
Subjective Interval history: 53-year-old male presented to emergency department today with complaints of shortness of breath, fatigue, and extensive draining edema of the lower extremities bilaterally. Per chart review his symptoms started 5 days ago and the swelling of his lower legs and feet have progressively gotten worse over the past 5 days. The patient also has had pain in the back of both lower extremities from the knees to the toes. He denied chest pain. He has a history of type-II diabetes mellitus and congestive heart failure. He has not taken any of his regular medications for the past 3 weeks due to financial limitations. During the examination in the emergency department he was found to have gangrene of the right foot and was emergently taken to operating room for an incision and drainage with debridement of foot and ankle. Postoperatively he remains intubated and was admitted to ICU for critical care management. SUBJ: s/p Incision drainage debridement foot ankle and distal leg, for gas gangrene. Remains in septic shock on Levophed. Remains intubated sedated. Currently on vancomycin and Zosyn I have added clindamycin. Cultures and wound cultures pending . Vascular surgery consult also pending. Received 2 units PRBC for hemoglobin of 5.3 06/04/18: Patient had been weaned off all pressors. Wakes up easily follows commands. 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 WBC count remains elevated but renal function improving. Hemoglobin stable. Multiple blood cultures growing E. coli. Wound culture with E. coli, MRSA, gram-negative rods. Continue Zosyn and vancomycin 06/05: Remains off vasopressors. Alert and conversant. Encephalopathy clearing. Blood and wound organisms identified, antibiotic coverage appropriate. 06/06: Normotensive. Afebrile. Urine output acceptable. Septic picture largely over. Base deficit largely corrected. Blood sugar trending higher will convert to full diabetic diet. 10-7 Follow-up acute on chronic anemia, status post right BKA x2, MRSA, CHF, AKA , C. difficile, diabetes type 2, generalized edema. Patient seen and examined laying in bed, still complaining of pain on the right leg at 7 out of 10. Patient stated better with morphine, stated pain down to 2 or 3 after the morphine. Patient encouraged to take pain medication at this time however this , discussed to rule down later. Patient denies any diarrhea today, had one formed stool today. Patient denies any fever or chills, denies any headache or dizziness, denies any nausea or vomiting. 06-21 PATIENT TO HAVE REVISION ON RIGHT LE ON THURSDAY. DW SURGERY DR Quiles AM LABS CONTINUE CURRENT TREATMENTS SEEN SITTING ON SIDE OF BED 06-22 TO GO FOR SURGERY ON RIGHT LE ON THURSDAY NO NEW COMPLAINTS STATES DOES NOT LIKE THE FOOD DW RN AND PT AND CM 06-23 patient is scheduled to go for surgery today NOW SEEN BEFORE SURGERY [employer] RN AND PT AND CM AM LABS 06-24 WENT FOR SURGERY TODAY WITH DR Quiles SEEN AFTER SURGERY REMAINS CONFUSED NEEDS SOFT RESTRAINTS AFTER SURGERY DW RN AND PT AND FAMILY WILL TRANSFUSE 2 UNITS PRBC TODAY DUE TO BLOOD LOSS DURING SURGERY AM LABS 06-25 NO NEW COMPLAINTS SOME CONFUSION DW RN AND PT AND CM HEMOGLOBIN IS STABLE POST 2 UNITS PRBC LAST NIGHT AM LABS 06-26 Follow-up for right BKA revision, infection, C. difficile: Patient awake , alert oriented x3. Pain well controlled. 2 loose bowel movements, not watery. Eating fairly well. No chest pain, no shortness of breath. No acute changes overnight. Afebrile. 06-27 PODIATRY DW RN AND PATIENT CONTINUE CURRENT TREATMENTS AT THIS TIME AM LABS 06-28 RIGHT LE IS STILL DRESSED DW RN AND PT AND CM NOT CLEARED FOR DC YET AM LABS Physical Exam Vital signs: Vital Signs 06/27/18 15:13 06/27/18 16:00 06/27/18 20:00 Temperature 98.1 F 98.3 F Pulse Rate 90 98 H 102 H Respiratory Rate 22 15 Blood Pressure 128/90 137/98 H Pulse Oximetry 93 L 100 06/28/18 00:00 06/28/18 04:00 06/28/18 08:00 Temperature 98.4 F 98.3 F 97.4 F L Pulse Rate 98 H 95 H 93 H Respiratory Rate 18 16 18 Blood Pressure 122/84 137/98 H 126/93 H Pulse Oximetry 100 99 93 L Intake & Output 06/27/18 06/28/18 06/28/18 18:59 06:59 18:59 Intake Total 1625 / 1625 565 / 565 50 / 50 Output Total 350 / 350 Balance 1625 / 1625 215 / 215 50 / 50 Weight 88.4 kg Intake: IV 665 / 665 105 / 105 50 / 50 Zosyn 3.375 GM Premix 50 ML @ 150 / 150 105 / 105 50 / 50 100 mls/hr IV.SIG Q6H [facility] Rx#: [id number] Vancomycin Inj 1,500 MG In NS 515 / 515 Inj 500 ML @ 250 mls/hr IV.SIG Q48H [facility] Rx#:[id number] Oral 960 / 960 460 / 460 Output: Urine 350 / 350 Other: # Voids 4 # Incontinent Voids 2 Date of Last Bowel Movement 06/27/18 # Incontinent Bowel Movements 3 Narrative: GENERAL: Well-developed, well-nourished, alert and oriented x3, with no apparent distress SKIN: Warm and dry. Right BKA dressing in place. HEAD: Atraumatic. Normocephalic. EYES: Pupils equal and round. No scleral icterus. No injection or drainage. ENT: No nasal bleeding or discharge. Mucous membranes pink and moist. NECK: Trachea midline. No JVD. CARDIOVASCULAR: Regular rate and rhythm. Unable to detect any murmurs, no rubs , no gallops. Trace thigh and scrotal edema. Right upper extremity edema. RESPIRATORY: No accessory muscle use. Clear to auscultation. Breath sounds equal bilaterally. GASTROINTESTINAL: Abdomen soft, non-tender, nondistended. Hepatic and splenic margins not palpable. MUSCULOSKELETAL: Extremities without clubbing, cyanosis, or edema. No obvious deformities. right LE BKA stump with dressing intact. NEUROLOGICAL: Awake, alert oriented x3. No focal deficits. PSYCHIATRIC: Appropriate mood and affect; insight and judgment normal. - Urinary Catheter Management Indwelling Urethral Catheter Cath placed during this visit: yes, but has since been removed by the nurse Reason for continuing: Decision to DC catheter Insertion date: 06/09/18 Insertion time: 13:59 Removal date: 06/09/18 Removal time: 14:57 Results - Labs CBC & Chem 7: 06/28/18 09:15 06/28/18 09:15 Laboratory Results - last 24 hr 06/27/18 06/27/18 06/27/18 12:59 18:03 19:49 WBC RBC Hgb Hct MCV MCH MCHC RDW Plt Count MPV Neut % (Auto) Lymph % (Auto) [place]man % (Auto) Eos % (Auto) Baso % (Auto) Neut # (Auto) Lymph # (Auto) [place] # (Auto) Eos # (Auto) Baso # (Auto) WBC Differential Differential Comment Sodium Potassium Chloride Carbon Dioxide Anion Gap BUN Creatinine Estimated GFR POC Glucose 99 97 164 H Random Glucose Calcium Phosphorus Magnesium Total Bilirubin AST ALT Alkaline Phosphatase Total Protein Albumin 06/28/18 06/28/18 06/28/18 09:15 09:15 09:38 WBC 10.1 RBC 3.47 L Hgb 10.9 L Hct 32.2 L MCV 93.0 MCH 31.4 MCHC 33.8 RDW 20.3 H Plt Count 308 D MPV 7.0 Neut % (Auto) 67.5 Lymph % (Auto) 18.8 Whitman % (Auto) 7.5 Eos % (Auto) 5.1 H Baso % (Auto) 1.1 Neut # (Auto) 6.8 Lymph # (Auto) 1.9 Whitman # (Auto) 0.8 Eos # (Auto) 0.5 H Baso # (Auto) 0.1 WBC Differential . Differential Comment Auto diff final Sodium 140 Potassium 4.4 Chloride 107 Carbon Dioxide 28.0 Anion Gap 5 BUN 17 Creatinine 1.55 H Estimated GFR 47 L POC Glucose 174 H Random Glucose 153 H Calcium 7.7 L Phosphorus 2.7 Magnesium 1.8 Total Bilirubin 0.2 AST 22 ALT 14 Alkaline Phosphatase 136 H Total Protein 6.4 D Albumin 0.9 L - Imaging ITS Impressions Venous Doppler Study 06/02/18 15:46 CONCLUSION: 1. No sonographic evidence of lower extremity DVT. 2. Bilateral lower extremity subcutaneous edema. 3. Multiple lymph nodes seen in both groins, some of which are abnormally enlarged. Recommend clinical correlation. Foot X-Ray 06/02/18 15:52 CONCLUSION: Extensive subcutaneous air. No bone fracture or dislocation Chest X-Ray 06/15/18 00:00 CONCLUSION: Bilateral effusions and consolidation. - Procedures DATE OF OPERATION: 06/24/2018 PREOPERATIVE DIAGNOSIS: Gangrene of the right leg, status post right below-knee guillotine amputation, revision amputation and irrigation with wound VACs. POSTOPERATIVE DIAGNOSIS: Gangrene of the right leg, status post right below-knee guillotine amputation, revision amputation and irrigation with wound VACs. PROCEDURE PERFORMED: Second revision of the amputation and final closure of the posterior flap. SURGEON: Daniel Dexter MD. ANESTHESIA: General. ESTIMATED BLOOD LOSS: 50 mL. DESCRIPTION OF PROCEDURE: The patient was prepped and draped in usual fashion. The wound VAC was removed. The wound was not examined. Posterior flap had been created last time, but could not be closed due to persistent purulent infection. At this point, there is no sign of infection. The entire flap was washed out with pulsatile lavage aggressively, going all the way up behind the medial gastrocnemius and the whole area. This was done with about 3 liters of saline. Once this was completed, flap was re-tailored. First of all, another 1-1/2 inch of tibia was resected using the oscillating saw [facility]. Meticulous hemostasis assured. The bone was rasped down and then a posterior flap was addressed. At this point, edematous, thickened, and clearly cannot be closed, therefore, some of the muscle was now shaved off with an amputation knife, and meticulous hemostasis obtained. This allowed for flexing the flap forward and closure. The flap was now sutured with 0 Vicryl deep layer of fascia at the fascia, and skin was closed with 2-0 Prolene. Dressing applied. The patient tolerated the procedure well. MD RACHID Marin/mahin , 01:07 PM Assessment and Plan - Assessment (1) Status post below knee amputation Code(s): Z89.519 - Acquired absence of unspecified leg below knee Status: Acute (2) Gas gangrene Code(s): A48.0 - Gas gangrene Status: Acute (3) CHF (congestive heart failure) Code(s): I50.9 - Heart failure, unspecified Status: Acute (4) YOLY (acute kidney injury) Code(s): N17.9 - Acute kidney failure, unspecified Status: Acute (5) Sepsis Code(s): A41.9 - Sepsis, unspecified organism Status: Acute - Plan 53-year-old male admitted with acute septic shock, respiratory failure status post extubation and BKA. Patient has been receiving ICU care and stabilized for transfer to the hospitalist service in the medical surgical floor. Septic shock/leukocytosis/respiratory failure with intubation s/p right BKA/Gas Gangrene of the right foot 06/03/18 Status post higher BKA and flap today 06/17/18 -Broad-spectrum antibiotic with vancomycin and Zosyn, -ID Consulted, Multiple blood cultures with E. coli, wound culture with E. coli , gram-negative ankur, MRSA on 06/02/18 -Status post I&D and debridement, status post BKA by Dr. Quiles 06/03/18 and higher BKA on 06/17/18 -Septic Shock resolved -Continue Baggs and morphine IV as needed for breakthrough pain. -s/p Higher BKA 06/17/18-Vascular surgery, plan for stump closure for at least another week or more we will continue wound VAC for now -Right BKA stump with wound vac improved suction and drainage, wound care for wound VAC maintenance, assessment of dressing, discussed with nursing -Wound/leg culture no growth in 72 hours on 06/17/18, fungal culture pending, mycobacterial culture pending -s/p revision of amputation, final closure of post. flap. Wound vac removed C. difficile -Continue Vanco p.o. -ID following Acute Anemia on chronic, Blood loss anemia likely due to post op blood loss and moderate wound vac drainage -held heparin due to bleeding -S/P PRBC transfusion x 6 total since admission -Last blood transfusion, June 24. HH stable, hemoglobin 9.3, hematocrit 26.7. CHF/generalized edema-improving. -BNP 739 -CXray with Bilateral effusion and consolidation, on Broad-spectrum antibiotic with vancomycin and Zosyn, -continue Lasix, continue KCL replacement -monitor BMP Acute kidney injury/hypokalemia/hypocalcemia Recent Renal Pathology at [facility]: Impression: diffuse and nodular diabetic glomerulosclerosis, moderately advanced and moderate arteriosclerosis and hyalinosis arteriosclerosis -KCL and calcium replaced -Strict I's and O's. IV fluid hydration -Monitor electrolytes and creatinine level -Creatinine 1.64 Diabetes mellitus Type 2 -blood glucose fair controlled - diabetic diet -Insulin sliding scale DVT:Teds SCDs GI prophylaxis:-Pepcid Code Status: FULL CODE Discussed Condition With: RN AND PT AND CM Discharge Planning: AFTER SURGERY IS DONE AND CLEARED BY ALL (3) CHF (congestive heart failure) Qualifiers: Heart failure type: unspecified Heart failure chronicity: acute on chronic Qualified Code(s): I50.9 - Heart failure, unspecified (5) Sepsis Qualifiers: Sepsis type: sepsis due to unspecified organism Qualified Code(s): A41.9 - Sepsis, unspecified organism
[2018-06-29] MEDS: Piperacil/Tazo 3.375 GM Premix 50 ML IV.SIG SCH ×4 (03:36→21:09)
[2018-06-29 08:37] LABS: Baso # (Auto) 0.1 th/mm3 (0.0-0.2); Baso % (Auto) 1.4 % (0.0-2.0); Eos # (Auto) 0.5 th/mm3 (0.0-0.4); Eos % (Auto) 6.6 % (0.0-4.0); Hematocrit 30.1 % (39.0-51.0); Hemoglobin 9.8 gm/dL (13.0-17.0); Lymph # (Auto) 1.9 th/mm3 (1.0-4.8); Lymph % (Auto) 23.5 % (9.0-44.0); Mean Corpuscular HGB Conc 32.7 % (32.0-36.0); Mean Corpuscular Hemoglobin 30.9 pg (27.0-34.0); Mean Corpuscular Volume 94.4 fL (80.0-100.0); Mean Platelet Volume 6.9 fL (7.0-11.0); Mono # (Auto) 0.7 th/mm3 (0.0-0.9); Mono % (Auto) 8.4 % (0.0-8.0); Neut # (Auto) 4.8 th/mm3 (1.8-7.7); Neut % (Auto) 60.1 % (16.0-70.0); Platelet Count 290 th/mm3 (150-450); Red Blood Count 3.19 mil/mm3 (4.50-5.90); Red Cell Distribution Width 20.5 % (11.6-17.2); White Blood Count 8.1 th/mm3 (4.0-11.0)
[2018-06-29] MEDS: Calcium Carbonate 500 MG Tablet PO SCH ×2 (09:01→21:10)
[2018-06-29] MEDS: Famotidine PF Inj 20 MG/2 ML Vial IV.PUSH SCH ×2 (09:02→21:09)
[2018-06-29] MEDS: Furosemide 20 MG Tablet PO SCH ×2 (09:02→17:49)
[2018-06-29] MEDS: Senna/Docusate Sodium 8.6/50 MG Tablet PO SCH ×2 (09:02→21:20)
[2018-06-29 09:07] LABS: Alanine Aminotransferase 13 U/L (12-78); Phosphorus 2.9 mg/dL (2.5-4.9)
[2018-06-29 09:09] LABS: Alkaline Phosphatase 111 U/L (45-117); Total Protein 6.1 g/dL (6.4-8.2)
[2018-06-29] MEDS: Insulin NovoLOG Aspart Correctional Sugar Inj SQ SCH ×4 (09:09→23:08)
[2018-06-29 09:10] LABS: Albumin 0.8 g/dL (3.4-5.0); Anion Gap 5 meq/L (5-15); Aspartate Aminotransferase 18 U/L (15-37); Blood Urea Nitrogen 15 mg/dL (7-18); Calcium 7.9 mg/dL (8.5-10.1); Carbon Dioxide 27.9 meq/L (21.0-32.0); Chloride 108 meq/L (98-107); Glomerular Filtration Rate 53 mL/min (>89); Glucose,Random 98 mg/dL (74-106); Magnesium 1.7 mg/dL (1.5-2.5); Potassium 4.5 meq/L (3.5-5.1); Sodium 141 meq/L (136-145)
--- NOTE | 2018-06-29 11:50 | P.PNIM ---
Subjective Interval history: 53-year-old male presented to emergency department today with complaints of shortness of breath, fatigue, and extensive draining edema of the lower extremities bilaterally. Per chart review his symptoms started 5 days ago and the swelling of his lower legs and feet have progressively gotten worse over the past 5 days. The patient also has had pain in the back of both lower extremities from the knees to the toes. He denied chest pain. He has a history of type-II diabetes mellitus and congestive heart failure. He has not taken any of his regular medications for the past 3 weeks due to financial limitations. During the examination in the emergency department he was found to have gangrene of the right foot and was emergently taken to operating room for an incision and drainage with debridement of foot and ankle. Postoperatively he remains intubated and was admitted to ICU for critical care management. SUBJ: s/p Incision drainage debridement foot ankle and distal leg, for gas gangrene. Remains in septic shock on Levophed. Remains intubated sedated. Currently on vancomycin and Zosyn I have added clindamycin. Cultures and wound cultures pending . Vascular surgery consult also pending. Received 2 units PRBC for hemoglobin of 5.3 06/04/18: Patient had been weaned off all pressors. Wakes up easily follows commands. 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 WBC count remains elevated but renal function improving. Hemoglobin stable. Multiple blood cultures growing E. coli. Wound culture with E. coli, MRSA, gram-negative rods. Continue Zosyn and vancomycin 06/05: Remains off vasopressors. Alert and conversant. Encephalopathy clearing. Blood and wound organisms identified, antibiotic coverage appropriate. 06/06: Normotensive. Afebrile. Urine output acceptable. Septic picture largely over. Base deficit largely corrected. Blood sugar trending higher will convert to full diabetic diet. 10-7 Follow-up acute on chronic anemia, status post right BKA x2, MRSA, CHF, AKA , C. difficile, diabetes type 2, generalized edema. Patient seen and examined laying in bed, still complaining of pain on the right leg at 7 out of 10. Patient stated better with morphine, stated pain down to 2 or 3 after the morphine. Patient encouraged to take pain medication at this time however this , discussed to rule down later. Patient denies any diarrhea today, had one formed stool today. Patient denies any fever or chills, denies any headache or dizziness, denies any nausea or vomiting. 10 PATIENT TO HAVE REVISION ON RIGHT LE ON THURSDAY. DW SURGERY DR Quiles AM LABS CONTINUE CURRENT TREATMENTS SEEN SITTING ON SIDE OF BED 06-22 TO GO FOR SURGERY ON RIGHT LE ON THURSDAY NO NEW COMPLAINTS STATES DOES NOT LIKE THE FOOD DW RN AND PT AND CM 06-23 patient is scheduled to go for surgery today NOW SEEN BEFORE SURGERY DW RN AND PT AND CM AM LABS 06-24 WENT FOR SURGERY TODAY WITH DR Quiles SEEN AFTER SURGERY REMAINS CONFUSED NEEDS SOFT RESTRAINTS AFTER SURGERY DW RN AND PT AND FAMILY WILL TRANSFUSE 2 UNITS PRBC TODAY DUE TO BLOOD LOSS DURING SURGERY AM LABS 06-25 NO NEW COMPLAINTS SOME CONFUSION DW RN AND PT AND CM HEMOGLOBIN IS STABLE POST 2 UNITS PRBC LAST NIGHT AM LABS 06-26 Follow-up for right BKA revision, infection, C. difficile: Patient awake , alert oriented x3. Pain well controlled. 2 loose bowel movements, not watery. Eating fairly well. No chest pain, no shortness of breath. No acute changes overnight. Afebrile. 06-27 DW PODIATRY DW RN AND PATIENT CONTINUE CURRENT TREATMENTS AT THIS TIME AM LABS 06-28 RIGHT LE IS STILL DRESSED DW RN AND PT AND CM NOT CLEARED FOR DC YET AM LABS 06-29 NO NEW COMPLAINTS RIGHT LE IS DRESSED DW PT AND RN AND CM Physical Exam Vital signs: Vital Signs 06/28/18 12:00 06/28/18 16:00 06/28/18 20:00 Temperature 97.4 F L 97.2 F L 98.7 F Pulse Rate 113 H 96 H 98 H Respiratory Rate 16 17 22 Blood Pressure 148/74 H 136/94 H 131/86 Pulse Oximetry 91 L 96 98 06/29/18 00:00 06/29/18 04:00 06/29/18 08:00 Temperature 97.2 F L 98.2 F 97.3 F L Pulse Rate 102 H 90 90 Respiratory Rate 18 20 20 Blood Pressure 147/81 H 136/87 123/92 H Pulse Oximetry 97 99 99 Intake & Output 06/28/18 06/29/18 06/29/18 18:59 06:59 18:59 Intake Total 820 / 820 980 / 980 Output Total 650 / 650 1050 / 1050 Balance 170 / 170 -70 / -70 Weight 88.8 kg Intake: IV 100 / 100 100 / 100 Zosyn 3.375 GM Premix 50 ML @ 100 / 100 100 / 100 100 mls/hr IV.SIG Q6H LINDA Rx#: [id number] Oral 720 / 720 880 / 880 Output: Urine 650 / 650 1050 / 1050 Other: Date of Last Bowel Movement 06/29/18 # Bowel Movements 0 1 Narrative: GENERAL: Well-developed, well-nourished, alert and oriented x3, with no apparent distress SKIN: Warm and dry. Right BKA dressing in place. HEAD: Atraumatic. Normocephalic. EYES: Pupils equal and round. No scleral icterus. No injection or drainage. ENT: No nasal bleeding or discharge. Mucous membranes pink and moist. NECK: Trachea midline. No JVD. CARDIOVASCULAR: Regular rate and rhythm. Unable to detect any murmurs, no rubs , no gallops. Trace thigh and scrotal edema. Right upper extremity edema. RESPIRATORY: No accessory muscle use. Clear to auscultation. Breath sounds equal bilaterally. GASTROINTESTINAL: Abdomen soft, non-tender, nondistended. Hepatic and splenic margins not palpable. MUSCULOSKELETAL: Extremities without clubbing, cyanosis, or edema. No obvious deformities. right LE BKA stump with dressing intact. NEUROLOGICAL: Awake, alert oriented x3. No focal deficits. PSYCHIATRIC: Appropriate mood and affect; insight and judgment normal. - Urinary Catheter Management Indwelling Urethral Catheter Cath placed during this visit: yes, but has since been removed by the nurse Reason for continuing: Decision to DC catheter Insertion date: 06/09/18 Insertion time: 13:59 Removal date: 06/09/18 Removal time: 14:57 Results - Labs CBC & Chem 7: 06/29/18 08:06 06/29/18 08:06 Laboratory Results - last 24 hr 06/28/18 06/28/18 06/29/18 13:04 18:10 08:01 WBC RBC Hgb Hct MCV MCH MCHC RDW Plt Count MPV Neut % (Auto) Lymph % (Auto) [place] % (Auto) Eos % (Auto) Baso % (Auto) Neut # (Auto) Lymph # (Auto) [place] # (Auto) Eos # (Auto) Baso # (Auto) WBC Differential Differential Comment Sodium Potassium Chloride Carbon Dioxide Anion Gap BUN Creatinine Estimated GFR POC Glucose 147 H 122 H 113 H Random Glucose Calcium Phosphorus Magnesium Total Bilirubin AST ALT Alkaline Phosphatase Total Protein Albumin 06/29/18 06/29/18 08:06 08:06 WBC 8.1 RBC 3.19 L Hgb 9.8 L Hct 30.1 L MCV 94.4 MCH 30.9 MCHC 32.7 RDW 20.5 H Plt Count 290 MPV 6.9 L Neut % (Auto) 60.1 Lymph % (Auto) 23.5 [place] % (Auto) 8.4 H Eos % (Auto) 6.6 H Baso % (Auto) 1.4 Neut # (Auto) 4.8 Lymph # (Auto) 1.9 [place] # (Auto) 0.7 Eos # (Auto) 0.5 H Baso # (Auto) 0.1 WBC Differential . Differential Comment Auto diff final Sodium 141 Potassium 4.5 Chloride 108 H Carbon Dioxide 27.9 Anion Gap 5 BUN 15 Creatinine 1.41 H Estimated GFR 53 L POC Glucose Random Glucose 98 Calcium 7.9 L Phosphorus 2.9 Magnesium 1.7 Total Bilirubin 0.2 AST 18 ALT 13 Alkaline Phosphatase 111 Total Protein 6.1 L Albumin 0.8 L - Procedures DATE OF OPERATION: 06/24/2018 PREOPERATIVE DIAGNOSIS: Gangrene of the right leg, status post right below-knee guillotine amputation, revision amputation and irrigation with wound VACs. POSTOPERATIVE DIAGNOSIS: Gangrene of the right leg, status post right below-knee guillotine amputation, revision amputation and irrigation with wound VACs. PROCEDURE PERFORMED: Second revision of the amputation and final closure of the posterior flap. SURGEON: Daniel Dexter MD. ANESTHESIA: General. ESTIMATED BLOOD LOSS: 50 mL. DESCRIPTION OF PROCEDURE: The patient was prepped and draped in usual fashion. The wound VAC was removed. The wound was not examined. Posterior flap had been created last time, but could not be closed due to persistent purulent infection. At this point, there is no sign of infection. The entire flap was washed out with pulsatile lavage aggressively, going all the way up behind the medial gastrocnemius and the whole area. This was done with about 3 liters of saline. Once this was completed, flap was re-tailored. First of all, another 1-1/2 inch of tibia was resected using the oscillating saw by the intrafibula. Meticulous hemostasis assured. The bone was rasped down and then a posterior flap was addressed. At this point, edematous, thickened, and clearly cannot be closed, therefore, some of the muscle was now shaved off with an amputation knife, and meticulous hemostasis obtained. This allowed for flexing the flap forward and closure. The flap was now sutured with 0 Vicryl deep layer of fascia at the fascia, and skin was closed with 2-0 Prolene. Dressing applied. The patient tolerated the procedure well. Jean Dexter MD SJ/ , 01:07 PM Assessment and Plan - Assessment (1) Status post below knee amputation Code(s): Z89.519 - Acquired absence of unspecified leg below knee Status: Acute (2) Gas gangrene Code(s): A48.0 - Gas gangrene Status: Acute (3) CHF (congestive heart failure) Code(s): I50.9 - Heart failure, unspecified Status: Acute (4) YOLY (acute kidney injury) Code(s): N17.9 - Acute kidney failure, unspecified Status: Acute (5) Sepsis Code(s): A41.9 - Sepsis, unspecified organism Status: Acute - Plan 53-year-old male admitted with acute septic shock, respiratory failure status post extubation and BKA. Patient has been receiving ICU care and stabilized for transfer to the hospitalist service in the medical surgical floor. Septic shock/leukocytosis/respiratory failure with intubation s/p right BKA/Gas Gangrene of the right foot 06/03/18 Status post higher BKA and flap today 06/17/18 -Broad-spectrum antibiotic with vancomycin and Zosyn, -ID Consulted, Multiple blood cultures with E. coli, wound culture with E. coli , gram-negative ankur, MRSA on 06/02/18 -Status post I&D and debridement, status post BKA by Dr. Quiles 06/03/18 and higher BKA on 06/17/18 -Septic Shock resolved -Continue [place] and morphine IV as needed for breakthrough pain. -s/p Higher BKA 06/17/18-Vascular surgery, plan for stump closure for at least another week or more we will continue wound VAC for now -Right BKA stump with wound vac improved suction and drainage, wound care for wound VAC maintenance, assessment of dressing, discussed with nursing -Wound/leg culture no growth in 72 hours on 06/17/18, fungal culture pending, mycobacterial culture pending -s/p revision of amputation, final closure of post. flap. Wound vac removed C. difficile -Continue Vanco p.o. -ID following Acute Anemia on chronic, Blood loss anemia likely due to post op blood loss and moderate wound vac drainage -held heparin due to bleeding -S/P PRBC transfusion x 6 total since admission -Last blood transfusion, June 24. HH stable, hemoglobin 9.3, hematocrit 26.7. CHF/generalized edema-improving. -BNP 739 -CXray with Bilateral effusion and consolidation, on Broad-spectrum antibiotic with vancomycin and Zosyn, -continue Lasix, continue KCL replacement -monitor BMP Acute kidney injury/hypokalemia/hypocalcemia Recent Renal Pathology at [facility]: Impression: diffuse and nodular diabetic glomerulosclerosis, moderately advanced and moderate arteriosclerosis and hyalinosis arteriosclerosis -KCL and calcium replaced -Strict I's and O's. IV fluid hydration -Monitor electrolytes and creatinine level -Creatinine 1.64 Diabetes mellitus Type 2 -blood glucose fair controlled - diabetic diet -Insulin sliding scale DVT:Teds SCDs GI prophylaxis:-Pepcid AWAIT SURGICAL AND ID CLEARANCE FOR DC Code Status: FULL CODE Discussed Condition With: RN AND PT AND CM Discharge Planning: AFTER SURGERY IS DONE AND CLEARED BY ALL (3) CHF (congestive heart failure) Qualifiers: Heart failure type: unspecified Heart failure chronicity: acute on chronic Qualified Code(s): I50.9 - Heart failure, unspecified (5) Sepsis Qualifiers: Sepsis type: sepsis due to unspecified organism Qualified Code(s): A41.9 - Sepsis, unspecified organism
[2018-06-29] MEDS: Sodium Chloride 0.9% 2 ML Flush BID IV.FLUSH SCH ×2 (11:59→21:10)
[2018-06-29] MEDS: Collagenase Oint 30 GM Tube TOPICAL SCH ×2 (12:00→13:51)
[2018-06-29] MEDS: Vancomycin Inj 1,500 MG in Sodium Chlor 0.9% Inj 500 ML IV.SIG SCH (15:39)
--- NOTE | 2018-06-29 18:26 | P.PNVS ---
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 Wound VAC in place It should be noted that the time of surgery patient had purulent drainage from the proximal portion of the amputation so will take a few days before patient is ready for any further surgery In the best case scenario will undergo washout of the stump and closure on Thursday but depending on what it looks like I may delay the final closure for another few days after that In the meantime patient can be safely extubated and transferred to floor when stable 06/05/2018 Patient status post guillotine amputation of the right foot Considering the amount of infection gas gangrene and purulent drainage wound VAC will remain on for next few days Will likely washout the change wound VAC on Thursday and then go ahead and closed the incision probably around Thursday06/06/2018 Considering the amount of purulent drainage and degree of infection and gas gangrene I believe it is probably leonard to postpone final closure until at least Thursday Patient should have a washout of the stump at the bedside the new wound VAC placement tomorrow 06/07/2018 Wound VAC changed today Amputation site appears to be much commercial or institutional cleaner Will likely closed the incision on Thursday Nothing to add at this time 06/08/2018 Patient had not had a change of wound VAC yet Wound care has been consulted but I do not know why the wound VAC was not changed Will now postpone final surgery until but wound VAC has to be changed and wound washed out today For closure of the BKA stump on Thursday06/10/2018 Patient will have serial wound vacs changed as ordered and by next the drainage and everything should be resolved to the point that patient can have closure of the BKA stump This is a unusually heavily infected purulent tissue of the calf and I do not want to close this before I am sure that is going to heal nicely and not result in a new abscess 06/11/2018 Patient stable Wound VAC changed and grateful to wound care team doing such excellent job Will likely take patient to the operating room or Thursday for hopefully a second stage procedure and closure 06/16/18 Stump appears clean, no more drainage For washout and closure tomorrow 06/17/2018 Patient taken to the operating room for washout and closure of the right BKA stump. Patient underwent amputation at the higher BKA level as planned and flap was created and the time noticed that there is more drainage from the area of the medial gastrocnemius muscle and about 100 cc of thick purulent material is extracted this area is completely opened irrigated with copious amount of saline and a new wound VAC placed At this point have no choice but to continue the wound VAC therapy before I can close this and will periodically see how patient does. Eventually we will close BK stump but in face of continued purulence he will have to be postponed for at least another week if not more 06/18/2018 Patient is status post amputation of the right leg with open stump and wound VAC Is noted during the surgery patient still had about 100 cc of isabella pus in the area of medial gastrocnemius muscle and this whole area has been opened up. Wound VAC on suction and expect a lot of drainage from this Hemoglobin 7 g/dL this morning we will transfuse 2 units PRBC Continue wound VAC changes as previously directed and hopefully by will take patient back to the operating room for another washout and hopefully closure of the stump. 06/19/2018 Wound VAC on the right BKA stump in place Hemoglobin remains stable after transfusion We will continue the wound VAC at least through this week and by the end of week I may decide to close the stump or even wait until next week for once is closed I want to minimize the chance of this getting infected 06/21/2018 Patient post 2nd stage amputation with open flap and vac. Great care by the wound care nurse Jacqueline. Will take to OR thursday or for closure of the flap 06/22/2018 Stump seems to be clean and serosanguineous drainage from the wound VAC is clearing up I do not believe that there is need to wait any longer and we can close the stump probably safely tomorrow unless I find some surprises during the surgery Tentatively patient scheduled for tomorrow for irrigation and closure of the right BKA stump 06/23/2018 Patient was scheduled for closure of the right BKA stump today however due to scheduling problems in the OR no time was available patient is rescheduled for tomorrow 06/29/2018 The BKA stump is nice clean and dry swelling has significantly decreased and there is no drainage No signs of infection I believe patient should remain on antibiotics as per infectious disease but as far as I am concerned patient can be transferred to rehab anytime Stitches to remain in for about 3 weeks and I will give instructions for the washing and wound care of the stump Objective Vital Signs / I&O: Vital Signs 06/28/18 20:00 06/29/18 00:00 06/29/18 04:00 Temperature 98.7 F 97.2 F L 98.2 F Pulse Rate 98 H 102 H 90 Respiratory Rate 22 18 20 Blood Pressure 131/86 147/81 H 136/87 Pulse Oximetry 98 97 99 06/29/18 08:00 06/29/18 12:00 06/29/18 16:00 Temperature 97.3 F L 97.4 F L Pulse Rate 90 96 H 94 H Respiratory Rate 20 20 Blood Pressure 123/92 H 105/80 Pulse Oximetry 99 99 Intake & Output 06/28/18 06/29/18 06/29/18 18:59 06:59 18:59 Intake Total 820 / 820 980 / 980 100 / 100 Output Total 650 / 650 1050 / 1050 Balance 170 / 170 -70 / -70 100 / 100 Weight 88.8 kg Intake: IV 100 / 100 100 / 100 100 / 100 Zosyn 3.375 GM Premix 50 ML @ 100 / 100 100 / 100 100 / 100 100 mls/hr IV.SIG Q6H LINDA Rx#: [id number] Oral 720 / 720 880 / 880 Output: Urine 650 / 650 1050 / 1050 Other: Date of Last Bowel Movement 06/29/18 06/29/18 # Bowel Movements 0 1 Laboratory Results - last 24 hr 06/29/18 06/29/18 06/29/18 08:01 08:06 08:06 WBC 8.1 RBC 3.19 L Hgb 9.8 L Hct 30.1 L MCV 94.4 MCH 30.9 MCHC 32.7 RDW 20.5 H Plt Count 290 MPV 6.9 L Neut % (Auto) 60.1 Lymph % (Auto) 23.5 [place] % (Auto) 8.4 H Eos % (Auto) 6.6 H Baso % (Auto) 1.4 Neut # (Auto) 4.8 Lymph # (Auto) 1.9 [place] # (Auto) 0.7 Eos # (Auto) 0.5 H Baso # (Auto) 0.1 WBC Differential . Differential Comment Auto diff final Sodium 141 Potassium 4.5 Chloride 108 H Carbon Dioxide 27.9 Anion Gap 5 BUN 15 Creatinine 1.41 H Estimated GFR 53 L POC Glucose 113 H Random Glucose 98 Calcium 7.9 L Phosphorus 2.9 Magnesium 1.7 Total Bilirubin 0.2 AST 18 ALT 13 Alkaline Phosphatase 111 Total Protein 6.1 L Albumin 0.8 L 06/29/18 06/29/18 12:02 16:41 WBC RBC Hgb Hct MCV MCH MCHC RDW Plt Count MPV Neut % (Auto) Lymph % (Auto) [place] % (Auto) Eos % (Auto) Baso % (Auto) Neut # (Auto) Lymph # (Auto) [place] # (Auto) Eos # (Auto) Baso # (Auto) WBC Differential Differential Comment Sodium Potassium Chloride Carbon Dioxide Anion Gap BUN Creatinine Estimated GFR POC Glucose 132 H 103 Random Glucose Calcium Phosphorus Magnesium Total Bilirubin AST ALT Alkaline Phosphatase Total Protein Albumin
[2018-06-30] MEDS: Piperacil/Tazo 3.375 GM Premix 50 ML IV.SIG SCH ×2 (03:56→08:22)
[2018-06-30] MEDS: Famotidine PF Inj 20 MG/2 ML Vial IV.PUSH SCH ×2 (08:23→21:48)
[2018-06-30] MEDS: Calcium Carbonate 500 MG Tablet PO SCH ×2 (08:23→21:48)
[2018-06-30] MEDS: Collagenase Oint 30 GM Tube TOPICAL SCH ×2 (08:24→16:38)
--- NOTE | 2018-06-30 11:46 | P.PNIM ---
Subjective Interval history: Follow up BKA amputation. Patient states he need his lasix, told him I will check with the RN why he did not get it. He is complaining of increased edema. Denies any chest pain or SOB. Physical Exam Vital signs: Vital Signs 06/29/18 12:00 06/29/18 16:00 06/29/18 20:00 Temperature 97.4 F L 97.4 F L 97.4 F L Pulse Rate 96 H 95 H 92 H Respiratory Rate 20 20 18 Blood Pressure 105/80 129/95 H 131/96 H Pulse Oximetry 99 99 99 06/29/18 23:50 06/30/18 00:00 06/30/18 04:00 Temperature 98.0 F 97.3 F L Pulse Rate 80 91 H 93 H Respiratory Rate 16 18 Blood Pressure 134/88 126/93 H Pulse Oximetry 96 99 06/30/18 08:00 Temperature 97.1 F L Pulse Rate 96 H Respiratory Rate 18 Blood Pressure 129/92 H Pulse Oximetry 98 Intake & Output 06/29/18 06/30/18 06/30/18 18:59 06:59 18:59 Intake Total 460 / 460 615 / 615 Output Total 450 / 450 650 / 650 Balance -35 / -35 Weight 89.6 kg Intake: IV 100 / 100 615 / 615 Zosyn 3.375 GM Premix 50 ML @ 100 / 100 100 / 100 100 mls/hr IV.SIG Q6H LINDA Rx#: [id number] Vancomycin Inj 1,500 MG In NS 515 / 515 Inj 500 ML @ 250 mls/hr IV.SIG Q48H LINDA Rx#:[id number] Oral 360 / 360 Output: Urine 450 / 450 650 / 650 Other: # Incontinent Voids 1 Date of Last Bowel Movement 06/29/18 06/29/18 # Bowel Movements 3 # Incontinent Bowel Movements 1 Narrative: GENERAL: Well-developed, well-nourished, alert and oriented x3, with no apparent distress SKIN: Warm and dry. Right BKA dressing in place. HEAD: Atraumatic. Normocephalic. EYES: Pupils equal and round. No scleral icterus. No injection or drainage. ENT: No nasal bleeding or discharge. Mucous membranes pink and moist. NECK: Trachea midline. No JVD. CARDIOVASCULAR: Regular rate and rhythm. Unable to detect any murmurs, no rubs , no gallops. Trace thigh and scrotal edema. Right upper extremity edema. RESPIRATORY: No accessory muscle use. Clear to auscultation. Breath sounds equal bilaterally. GASTROINTESTINAL: Abdomen soft, non-tender, nondistended. Hepatic and splenic margins not palpable. MUSCULOSKELETAL: Extremities without clubbing, cyanosis, or edema. No obvious deformities. right LE BKA stump with dressing intact. NEUROLOGICAL: Awake, alert oriented x3. No focal deficits. PSYCHIATRIC: Appropriate mood and affect; insight and judgment normal. - Urinary Catheter Management Indwelling Urethral Catheter Cath placed during this visit: yes, but has since been removed by the nurse Reason for continuing: Decision to DC catheter Insertion date: 06/09/18 Insertion time: 13:59 Removal date: 06/09/18 Removal time: 14:57 Results - Labs CBC & Chem 7: 06/29/18 08:06 06/30/18 06:25 Laboratory Results - last 24 hr 06/29/18 06/29/18 06/29/18 12:02 16:41 20:05 Creatinine Estimated GFR POC Glucose 132 H 103 88 06/30/18 06:25 Creatinine 1.48 H Estimated GFR 50 L POC Glucose - Procedures DATE OF OPERATION: 06/24/2018 PREOPERATIVE DIAGNOSIS: Gangrene of the right leg, status post right below-knee guillotine amputation, revision amputation and irrigation with wound VACs. POSTOPERATIVE DIAGNOSIS: Gangrene of the right leg, status post right below-knee guillotine amputation, revision amputation and irrigation with wound VACs. PROCEDURE PERFORMED: Second revision of the amputation and final closure of the posterior flap. SURGEON: Daniel Dexter MD. ANESTHESIA: General. ESTIMATED BLOOD LOSS: 50 mL. DESCRIPTION OF PROCEDURE: The patient was prepped and draped in usual fashion. The wound VAC was removed. The wound was not examined. Posterior flap had been created last time, but could not be closed due to persistent purulent infection. At this point, there is no sign of infection. The entire flap was washed out with pulsatile lavage aggressively, going all the way up behind the medial gastrocnemius and the whole area. This was done with about 3 liters of saline. Once this was completed, flap was re-tailored. First of all, another 1-1/2 inch of tibia was resected using the oscillating saw by the intrafibula. Meticulous hemostasis assured. The bone was rasped down and then a posterior flap was addressed. At this point, edematous, thickened, and clearly cannot be closed, therefore, some of the muscle was now shaved off with an amputation knife, and meticulous hemostasis obtained. This allowed for flexing the flap forward and closure. The flap was now sutured with 0 Vicryl deep layer of fascia at the fascia, and skin was closed with 2-0 Prolene. Dressing applied. The patient tolerated the procedure well. MD RACHID Marin/mahin , 01:07 PM Assessment and Plan - Assessment (1) Status post below knee amputation Code(s): Z89.519 - Acquired absence of unspecified leg below knee Status: Acute (2) Gas gangrene Code(s): A48.0 - Gas gangrene Status: Acute (3) CHF (congestive heart failure) Code(s): I50.9 - Heart failure, unspecified Status: Acute (4) YOLY (acute kidney injury) Code(s): N17.9 - Acute kidney failure, unspecified Status: Acute (5) Sepsis Code(s): A41.9 - Sepsis, unspecified organism Status: Acute - Plan 53-year-old male admitted with acute septic shock, respiratory failure status post extubation and BKA. Patient has been receiving ICU care and stabilized for transfer to the hospitalist service in the medical surgical floor. Septic shock/leukocytosis/respiratory failure with intubation s/p right BKA/Gas Gangrene of the right foot 06/03/18 Status post higher BKA and flap today 06/17/18 -Broad-spectrum antibiotic with vancomycin and Zosyn, -ID Consulted, Multiple blood cultures with E. coli, wound culture with E. coli , gram-negative ankur, MRSA on 06/02/18 -Status post I&D and debridement, status post BKA by Dr. Quiles 06/03/18 and higher BKA on 06/17/18 -Septic Shock resolved -Continue [place] and morphine IV as needed for breakthrough pain. -s/p Higher BKA 06/17/18-Vascular surgery, plan for stump closure for at least another week or more we will continue wound VAC for now -Right BKA stump with wound vac improved suction and drainage, wound care for wound VAC maintenance, assessment of dressing, discussed with nursing -Wound/leg culture no growth in 72 hours on 06/17/18, fungal culture pending, mycobacterial culture pending -s/p revision of amputation, final closure of post. flap. Wound vac removed C. difficile, resolving -Continue po Vancomycin 125 mg PO quid x 2 weeks for C diff (will count from the time systemic abx are stopped) -ID following Acute Anemia on chronic, Blood loss anemia likely due to post op blood loss and moderate wound vac drainage -held heparin due to bleeding -S/P PRBC transfusion x 6 total since admission -Last blood transfusion, June 24. HH stable, hemoglobin 9.3, hematocrit 26.7. CHF/generalized edema-improving. -BNP 739 -CXray with Bilateral effusion and consolidation, on Broad-spectrum antibiotic with vancomycin and Zosyn, -continue Lasix, continue KCL replacement -monitor BMP Acute kidney injury/hypokalemia/hypocalcemia Recent Renal Pathology at [facility]: Impression: diffuse and nodular diabetic glomerulosclerosis, moderately advanced and moderate arteriosclerosis and hyalinosis arteriosclerosis -KCL and calcium replaced -Strict I's and O's. 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
[2018-06-30] MEDS: Senna/Docusate Sodium 8.6/50 MG Tablet PO SCH ×2 (12:01→21:49)
[2018-06-30] MEDS: Insulin NovoLOG Aspart Correctional Sugar Inj SQ SCH ×4 (12:01→21:48)
--- NOTE | 2018-06-30 13:32 | P.PNID ---
Subjective Remarks: no fever resolving diarrhea, stools are forming up sp amputation revision, closure cleared by vascular surgeon for rehab Antibiotics: vanco IV zosyn Vanco po Past Medical History: Congestive heart failure Type 2 diabetes mellitus Cholecystectomy Allergies/Adverse Reactions: Allergies No Known Allergies Allergy (Unverified 06/02/18 15:19) Objective Vital Signs 06/29/18 16:00 06/29/18 20:00 06/29/18 23:50 Temperature 97.4 F L 97.4 F L 98.0 F Pulse Rate 95 H 92 H 80 Respiratory Rate 20 18 16 Blood Pressure 129/95 H 131/96 H 134/88 Pulse Oximetry 99 99 96 06/30/18 00:00 06/30/18 04:00 06/30/18 08:00 Temperature 97.3 F L 97.1 F L Pulse Rate 91 H 93 H 96 H Respiratory Rate 18 18 Blood Pressure 126/93 H 129/92 H Pulse Oximetry 99 98 06/30/18 12:00 Temperature 97.6 F Pulse Rate 91 H Respiratory Rate 17 Blood Pressure 128/92 H Pulse Oximetry 98 Intake & Output 06/29/18 06/30/18 06/30/18 18:59 06:59 18:59 Intake Total 460 / 460 615 / 615 50 / 50 Output Total 450 / 450 650 / 650 Balance -35 / -35 50 / 50 Weight 89.6 kg Intake: IV 100 / 100 615 / 615 50 / 50 Zosyn 3.375 GM Premix 50 ML @ 100 / 100 100 / 100 50 / 50 100 mls/hr IV.SIG Q6H LINDA Rx#: [id number] Vancomycin Inj 1,500 MG In NS 515 / 515 Inj 500 ML @ 250 mls/hr IV.SIG Q48H LINDA Rx#:[id number] Oral 360 / 360 Output: Urine 450 / 450 650 / 650 Other: # Incontinent Voids 1 Date of Last Bowel Movement 06/29/18 06/29/18 # Bowel Movements 3 # Incontinent Bowel Movements 1 Lab - Hematology Results 06/29/18 08:06 WBC 8.1 RBC 3.19 L Hgb 9.8 L Hct 30.1 L MCV 94.4 MCH 30.9 MCHC 32.7 RDW 20.5 H Plt Count 290 MPV 6.9 L Neut % (Auto) 60.1 Lymph % (Auto) 23.5 [place] % (Auto) 8.4 H Eos % (Auto) 6.6 H Baso % (Auto) 1.4 Neut # (Auto) 4.8 Lymph # (Auto) 1.9 [place] # (Auto) 0.7 Eos # (Auto) 0.5 H Baso # (Auto) 0.1 WBC Differential . Differential Comment Auto diff final Lab - Chemistry Results 06/28/18 06/29/18 06/29/18 18:10 08:01 08:06 Sodium 141 Potassium 4.5 Chloride 108 H Carbon Dioxide 27.9 Anion Gap 5 BUN 15 Creatinine 1.41 H Estimated GFR 53 L POC Glucose 122 H 113 H Random Glucose 98 Calcium 7.9 L Phosphorus 2.9 Magnesium 1.7 Total Bilirubin 0.2 AST 18 ALT 13 Alkaline Phosphatase 111 Total Protein 6.1 L Albumin 0.8 L 06/29/18 06/29/18 06/29/18 12:02 16:41 20:05 Sodium Potassium Chloride Carbon Dioxide Anion Gap BUN Creatinine Estimated GFR POC Glucose 132 H 103 88 Random Glucose Calcium Phosphorus Magnesium Total Bilirubin AST ALT Alkaline Phosphatase Total Protein Albumin 06/30/18 06:25 Sodium Potassium Chloride Carbon Dioxide Anion Gap BUN Creatinine 1.48 H Estimated GFR 50 L POC Glucose Random Glucose Calcium Phosphorus Magnesium Total Bilirubin AST ALT Alkaline Phosphatase Total Protein Albumin Imaging: ITS Impressions Venous Doppler Study 06/02/18 15:46 CONCLUSION: 1. No sonographic evidence of lower extremity DVT. 2. Bilateral lower extremity subcutaneous edema. 3. Multiple lymph nodes seen in both groins, some of which are abnormally enlarged. Recommend clinical correlation. Foot X-Ray 06/02/18 15:52 CONCLUSION: Extensive subcutaneous air. No bone fracture or dislocation Chest X-Ray 06/15/18 00:00 CONCLUSION: Bilateral effusions and consolidation. Physical Exam: GENERAL: , NAD SKIN: Warm and dry. No rash HEAD: Atraumatic. Normocephalic. EYES: Pupils equal and round. No scleral icterus. No injection or drainage. ENT: No nasal bleeding or discharge. Mucous membranes pink and moist. NECK: No JVD. CARDIOVASCULAR: Regular rate and rhythm. RESPIRATORY: No accessory muscle use. Clear to auscultation. Breath sounds equal bilaterally. GASTROINTESTINAL: Abdomen soft, non-tender, not distended. + mildly tender to palpation MUSCULOSKELETAL: Extremities without clubbing, cyanosis, + resolution of most edema sp RLE p BKA with dry and clean and well approximated incision L heel black dry eschar healing from perifery NEUROLOGICAL: Non-focal PSYCHIATRIC: caslm cooperative Assessment and Plan - Plan Impression Sepsis, E coli - resolved Gas gangrene RLE, S/P guillotine amputation RBKA, C/S polymicrobial path from amputation revision showed no osteo life treatening severe R foot DFI Gas gangrene R foot, polimicrobial mixed aerobic/anaerobic infx, including MRSA Acutre VDRF- resolved ARF - resolved C difficile colitis: resolving Recommendation dc zosyn dc vancomycin Continue po Vancomycin 125 mg PO quid x 2 weeks for C diff (will count from the time systemic abx are stopped) OK to discharge to rehab from ID standpoint dw case mngr dw Dr Mckeon
--- NOTE | 2018-06-30 14:49 | P.PNVS ---
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 Wound VAC in place It should be noted that the time of surgery patient had purulent drainage from the proximal portion of the amputation so will take a few days before patient is ready for any further surgery In the best case scenario will undergo washout of the stump and closure on Thursday but depending on what it looks like I may delay the final closure for another few days after that In the meantime patient can be safely extubated and transferred to floor when stable 06/05/2018 Patient status post guillotine amputation of the right foot Considering the amount of infection gas gangrene and purulent drainage wound VAC will remain on for next few days Will likely washout the change wound VAC on Thursday and then go ahead and closed the incision probably around Thursday06/06/2018 Considering the amount of purulent drainage and degree of infection and gas gangrene I believe it is probably leonard to postpone final closure until at least Thursday Patient should have a washout of the stump at the bedside the new wound VAC placement tomorrow 06/07/2018 Wound VAC changed today Amputation site appears to be much barrel cleaner Will likely closed the incision on Thursday Nothing to add at this time 06/08/2018 Patient had not had a change of wound VAC yet Wound care has been consulted but I do not know why the wound VAC was not changed Will now postpone final surgery until but wound VAC has to be changed and wound washed out today For closure of the BKA stump on Thursday06/10/2018 Patient will have serial wound vacs changed as ordered and by next the drainage and everything should be resolved to the point that patient can have closure of the BKA stump This is a unusually heavily infected purulent tissue of the calf and I do not want to close this before I am sure that is going to heal nicely and not result in a new abscess 06/11/2018 Patient stable Wound VAC changed and grateful to wound care team doing such excellent job Will likely take patient to the operating room or Thursday for hopefully a second stage procedure and closure 06/16/18 Stump appears clean, no more drainage For washout and closure tomorrow 06/17/2018 Patient taken to the operating room for washout and closure of the right BKA stump. Patient underwent amputation at the higher BKA level as planned and flap was created and the time noticed that there is more drainage from the area of the medial gastrocnemius muscle and about 100 cc of thick purulent material is extracted this area is completely opened irrigated with copious amount of saline and a new wound VAC placed At this point have no choice but to continue the wound VAC therapy before I can close this and will periodically see how patient does. Eventually we will close BK stump but in face of continued purulence he will have to be postponed for at least another week if not more 06/18/2018 Patient is status post amputation of the right leg with open stump and wound VAC Is noted during the surgery patient still had about 100 cc of isabella pus in the area of medial gastrocnemius muscle and this whole area has been opened up. Wound VAC on suction and expect a lot of drainage from this Hemoglobin 7 g/dL this morning we will transfuse 2 units PRBC Continue wound VAC changes as previously directed and hopefully by will take patient back to the operating room for another washout and hopefully closure of the stump. 06/19/2018 Wound VAC on the right BKA stump in place Hemoglobin remains stable after transfusion We will continue the wound VAC at least through this week and by the end of week I may decide to close the stump or even wait until next week for once is closed I want to minimize the chance of this getting infected 06/21/2018 Patient post 2nd stage amputation with open flap and vac. Great care by the wound care nurse Jacqueline. Will take to OR thursday or for closure of the flap 06/22/2018 Stump seems to be clean and serosanguineous drainage from the wound VAC is clearing up I do not believe that there is need to wait any longer and we can close the stump probably safely tomorrow unless I find some surprises during the surgery Tentatively patient scheduled for tomorrow for irrigation and closure of the right BKA stump 06/23/2018 Patient was scheduled for closure of the right BKA stump today however due to scheduling problems in the OR no time was available patient is rescheduled for tomorrow 06/29/2018 The BKA stump is nice clean and dry swelling has significantly decreased and there is no drainage No signs of infection I believe patient should remain on antibiotics as per infectious disease but as far as I am concerned patient can be transferred to rehab anytime Stitches to remain in for about 3 weeks and I will give instructions for the washing and wound care of the stump 06/30/2018 BKA stump is nice and dry no drainage well vascularized Providing that some sort of infection does not recur from deeper tissues or patient does not injured the stump this should heal well He can be discharged from my point any time Objective Vital Signs / I&O: Vital Signs 06/29/18 16:00 06/29/18 20:00 06/29/18 23:50 Temperature 97.4 F L 97.4 F L 98.0 F Pulse Rate 95 H 92 H 80 Respiratory Rate 20 18 16 Blood Pressure 129/95 H 131/96 H 134/88 Pulse Oximetry 99 99 96 06/30/18 00:00 06/30/18 04:00 06/30/18 08:00 Temperature 97.3 F L 97.1 F L Pulse Rate 91 H 93 H 96 H Respiratory Rate 18 18 Blood Pressure 126/93 H 129/92 H Pulse Oximetry 99 98 06/30/18 12:00 Temperature 97.6 F Pulse Rate 91 H Respiratory Rate 17 Blood Pressure 128/92 H Pulse Oximetry 98 Intake & Output 06/29/18 06/30/18 06/30/18 18:59 06:59 18:59 Intake Total 460 / 460 615 / 615 50 / 50 Output Total 450 / 450 650 / 650 Balance -35 / -35 50 / 50 Weight 89.6 kg Intake: IV 100 / 100 615 / 615 50 / 50 Zosyn 3.375 GM Premix 50 ML @ 100 / 100 100 / 100 50 / 50 100 mls/hr IV.SIG Q6H LINDA Rx#: [id number] Vancomycin Inj 1,500 MG In NS 515 / 515 Inj 500 ML @ 250 mls/hr IV.SIG Q48H LINDA Rx#:[id number] Oral 360 / 360 Output: Urine 450 / 450 650 / 650 Other: # Incontinent Voids 1 Date of Last Bowel Movement 06/29/18 06/29/18 # Bowel Movements 3 # Incontinent Bowel Movements 1 Laboratory Results - last 24 hr 06/29/18 06/29/18 06/30/18 16:41 20:05 06:25 Creatinine 1.48 H Estimated GFR 50 L POC Glucose 103 88 Microbiology 06/02/18 18:48 Acid Fast Bacilli Smear - Final Wound - Foot No acid fast bacilli seen Mycobacterial Culture - Preliminary No growth in 4 weeks
[2018-06-30] MEDS: Furosemide 20 MG Tablet PO SCH ×2 (16:38→18:59)
[2018-06-30] MEDS: Sodium Chloride 0.9% 2 ML Flush BID IV.FLUSH SCH ×2 (16:38→21:49)
[2018-07-01] MEDS: Furosemide 20 MG Tablet PO SCH ×2 (08:23→17:30)
[2018-07-01] MEDS: Famotidine PF Inj 20 MG/2 ML Vial IV.PUSH SCH ×2 (08:24→21:01)
[2018-07-01] MEDS: Sodium Chloride 0.9% 2 ML Flush PRN IV.FLUSH (08:25)
[2018-07-01] MEDS: Insulin NovoLOG Aspart Correctional Sugar Inj SQ SCH ×4 (08:25→21:01)
[2018-07-01] MEDS: Sodium Chloride 0.9% 2 ML Flush BID IV.FLUSH SCH ×2 (08:26→21:06)
[2018-07-01] MEDS: Senna/Docusate Sodium 8.6/50 MG Tablet PO SCH ×2 (08:27→21:04)
[2018-07-01] MEDS: Calcium Carbonate 500 MG Tablet PO SCH ×2 (08:27→21:01)
[2018-07-01] MEDS: Collagenase Oint 30 GM Tube TOPICAL SCH ×2 (08:27→12:07)
--- NOTE | 2018-07-01 13:22 | P.PN ---
Subjective Interval history: no complains no further diarrhea- "it's okay now" very motivated with more therapy Physical Exam Vital signs: Vital Signs 06/30/18 16:00 06/30/18 19:50 06/30/18 20:00 Temperature 97.3 F L 97.2 F L Pulse Rate 92 H 92 H 90 Respiratory Rate 17 18 Blood Pressure 123/86 125/92 H Pulse Oximetry 99 98 07/01/18 00:00 07/01/18 04:00 07/01/18 07:51 Temperature 97.1 F L 97.1 F L 98.4 F Pulse Rate 90 90 90 Respiratory Rate 18 16 20 Blood Pressure 125/90 130/96 H 121/96 H Pulse Oximetry 96 100 100 07/01/18 08:00 07/01/18 12:09 Temperature 97.2 F L Pulse Rate 90 92 H Respiratory Rate 18 Blood Pressure 130/85 Pulse Oximetry Intake & Output 06/30/18 07/01/18 07/01/18 18:59 06:59 18:59 Intake Total 290 / 290 240 / 240 Output Total 325 / 325 Balance -35 / -35 240 / 240 Weight 90.2 kg Intake: IV 50 / 50 Zosyn 3.375 GM Premix 50 ML @ 50 / 50 100 mls/hr IV.SIG Q6H LINDA Rx#: [id number] Oral 240 / 240 240 / 240 Output: Urine 325 / 325 Other: # Incontinent Voids 2 Date of Last Bowel Movement 07/01/18 # Bowel Movements 0 2 Narrative: GENERAL: alert and oriented x3, with no apparent distress SKIN: Warm and dry. Right BKA - stump no infection HEAD: Atraumatic. Normocephalic. EYES: Pupils equal and round. No scleral icterus. No injection or drainage. ENT: No nasal bleeding or discharge. Mucous membranes pink and moist. NECK: Trachea midline. No JVD. CARDIOVASCULAR: Regular rate and rhythm. Unable to detect any murmurs, no rubs , no gallops. . RESPIRATORY: No accessory muscle use. Clear to auscultation. Breath sounds equal bilaterally. GASTROINTESTINAL: Abdomen soft, non-tender, nondistended. Hepatic and splenic margins not palpable. MUSCULOSKELETAL: left heel ulcer, right BKA NEUROLOGICAL: Awake, alert oriented x3. No focal deficits. PSYCHIATRIC: Appropriate mood and affect; insight and judgment normal. - Urinary Catheter Management Indwelling Urethral Catheter Cath placed during this visit: yes, but has since been removed by the nurse Reason for continuing: Decision to DC catheter Insertion date: 06/09/18 Insertion time: 13:59 Removal date: 06/09/18 Removal time: 14:57 Results - Labs CBC & Chem 7: 07/03/18 14:35 07/03/18 14:35 Laboratory Results - last 24 hr 06/30/18 06/30/18 07/01/18 16:42 19:51 08:11 POC Glucose 144 H 107 110 07/01/18 11:14 POC Glucose 106 Microbiology 06/02/18 18:48 Wound - Foot Acid Fast Bacilli Smear - Final No acid fast bacilli seen 06/02/18 18:48 Wound - Foot Mycobacterial Culture - Preliminary No growth in 4 weeks - Procedures DATE OF OPERATION: 06/24/2018 PREOPERATIVE DIAGNOSIS: Gangrene of the right leg, status post right below-knee guillotine amputation, revision amputation and irrigation with wound VACs. POSTOPERATIVE DIAGNOSIS: Gangrene of the right leg, status post right below-knee guillotine amputation, revision amputation and irrigation with wound VACs. PROCEDURE PERFORMED: Second revision of the amputation and final closure of the posterior flap. SURGEON: Daniel Dexter MD. ANESTHESIA: General. ESTIMATED BLOOD LOSS: 50 mL. DESCRIPTION OF PROCEDURE: The patient was prepped and draped in usual fashion. The wound VAC was removed. The wound was not examined. Posterior flap had been created last time, but could not be closed due to persistent purulent infection. At this point, there is no sign of infection. The entire flap was washed out with pulsatile lavage aggressively, going all the way up behind the medial gastrocnemius and the whole area. This was done with about 3 liters of saline. Once this was completed, flap was re-tailored. First of all, another 1-1/2 inch of tibia was resected using the oscillating saw by the intrafibula. Meticulous hemostasis assured. The bone was rasped down and then a posterior flap was addressed. At this point, edematous, thickened, and clearly cannot be closed, therefore, some of the muscle was now shaved off with an amputation knife, and meticulous hemostasis obtained. This allowed for flexing the flap forward and closure. The flap was now sutured with 0 Vicryl deep layer of fascia at the fascia, and skin was closed with 2-0 Prolene. Dressing applied. The patient tolerated the procedure well. Jean Dexter MD SJ/ , 01:07 PM Assessment and Plan - Assessment (1) Status post below knee amputation Code(s): Z89.519 - Acquired absence of unspecified leg below knee Status: Acute (2) Gas gangrene Code(s): A48.0 - Gas gangrene Status: Acute (3) CHF (congestive heart failure) Code(s): I50.9 - Heart failure, unspecified Status: Acute (4) YOLY (acute kidney injury) Code(s): N17.9 - Acute kidney failure, unspecified Status: Acute (5) Sepsis Code(s): A41.9 - Sepsis, unspecified organism Status: Acute - Plan 53-year-old male admitted with acute septic shock, respiratory failure status post extubation and BKA. Patient has been receiving ICU care and stabilized for transfer to the hospitalist service in the medical surgical floor. Septic shock/leukocytosis/respiratory failure with intubation s/p right BKA/Gas Gangrene of the right foot 06/03/18 Status post higher BKA and flap today 06/17/18 -Broad-spectrum antibiotic with vancomycin and Zosyn, -ID Consulted, Multiple blood cultures with E. coli, wound culture with E. coli , gram-negative ankur, MRSA on 06/02/18 -Status post I&D and debridement, status post BKA by Dr. Quiles 06/03/18 and higher BKA on 06/17/18 -Septic Shock resolved -Continue [place] and morphine IV as needed for breakthrough pain. -s/p Higher BKA 06/17/18-Vascular surgery, plan for stump closure for at least another week or more we will continue wound VAC for now -Right BKA stump with wound vac improved suction and drainage, wound care for wound VAC maintenance, assessment of dressing, discussed with nursing -Wound/leg culture no growth in 72 hours on 06/17/18, fungal culture pending, mycobacterial culture pending -s/p revision of amputation, final closure of post. flap. Wound vac removed C. difficile, resolving -Continue po Vancomycin 125 mg PO qid x 2 weeks for C diff -d/w dr. Mosley Acute Anemia on chronic, Blood loss anemia likely due to post op blood loss and moderate wound vac drainage -held heparin due to bleeding -S/P PRBC transfusion x 6 total since admission -Last blood transfusion, June 24. HH stable, hemoglobin 9.3, hematocrit 26.7. 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 Sanchez consulted (3) CHF (congestive heart failure) Qualifiers: Heart failure type: unspecified Heart failure chronicity: acute on chronic Qualified Code(s): I50.9 - Heart failure, unspecified (5) Sepsis Qualifiers: Sepsis type: sepsis due to unspecified organism Qualified Code(s): A41.9 - Sepsis, unspecified organism
[2018-07-01] MEDS ORDERED: Pharmacy Ordered Lab Info OTHER ONE (15:45)
--- NOTE | 2018-07-01 17:30 | P.PNVS ---
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 Wound VAC in place It should be noted that the time of surgery patient had purulent drainage from the proximal portion of the amputation so will take a few days before patient is ready for any further surgery In the best case scenario will undergo washout of the stump and closure on Thursday but depending on what it looks like I may delay the final closure for another few days after that In the meantime patient can be safely extubated and transferred to floor when stable 06/05/2018 Patient status post guillotine amputation of the right foot Considering the amount of infection gas gangrene and purulent drainage wound VAC will remain on for next few days Will likely washout the change wound VAC on Thursday and then go ahead and closed the incision probably around Thursday06/06/2018 Considering the amount of purulent drainage and degree of infection and gas gangrene I believe it is probably leonard to postpone final closure until at least Thursday Patient should have a washout of the stump at the bedside the new wound VAC placement tomorrow 06/07/2018 Wound VAC changed today Amputation site appears to be much cleaner touch up worker Will likely closed the incision on Thursday Nothing to add at this time 06/08/2018 Patient had not had a change of wound VAC yet Wound care has been consulted but I do not know why the wound VAC was not changed Will now postpone final surgery until but wound VAC has to be changed and wound washed out today For closure of the BKA stump on Thursday06/10/2018 Patient will have serial wound vacs changed as ordered and by next the drainage and everything should be resolved to the point that patient can have closure of the BKA stump This is a unusually heavily infected purulent tissue of the calf and I do not want to close this before I am sure that is going to heal nicely and not result in a new abscess 06/11/2018 Patient stable Wound VAC changed and grateful to wound care team doing such excellent job Will likely take patient to the operating room or Thursday for hopefully a second stage procedure and closure 06/16/18 Stump appears clean, no more drainage For washout and closure tomorrow 06/17/2018 Patient taken to the operating room for washout and closure of the right BKA stump. Patient underwent amputation at the higher BKA level as planned and flap was created and the time noticed that there is more drainage from the area of the medial gastrocnemius muscle and about 100 cc of thick purulent material is extracted this area is completely opened irrigated with copious amount of saline and a new wound VAC placed At this point have no choice but to continue the wound VAC therapy before I can close this and will periodically see how patient does. Eventually we will close BK stump but in face of continued purulence he will have to be postponed for at least another week if not more 06/18/2018 Patient is status post amputation of the right leg with open stump and wound VAC Is noted during the surgery patient still had about 100 cc of isabella pus in the area of medial gastrocnemius muscle and this whole area has been opened up. Wound VAC on suction and expect a lot of drainage from this Hemoglobin 7 g/dL this morning we will transfuse 2 units PRBC Continue wound VAC changes as previously directed and hopefully by will take patient back to the operating room for another washout and hopefully closure of the stump. 06/19/2018 Wound VAC on the right BKA stump in place Hemoglobin remains stable after transfusion We will continue the wound VAC at least through this week and by the end of week I may decide to close the stump or even wait until next week for once is closed I want to minimize the chance of this getting infected 06/21/2018 Patient post 2nd stage amputation with open flap and vac. Great care by the wound care nurse Jacqueline. Will take to OR thursday or for closure of the flap 06/22/2018 Stump seems to be clean and serosanguineous drainage from the wound VAC is clearing up I do not believe that there is need to wait any longer and we can close the stump probably safely tomorrow unless I find some surprises during the surgery Tentatively patient scheduled for tomorrow for irrigation and closure of the right BKA stump 06/23/2018 Patient was scheduled for closure of the right BKA stump today however due to scheduling problems in the OR no time was available patient is rescheduled for tomorrow 06/29/2018 The BKA stump is nice clean and dry swelling has significantly decreased and there is no drainage No signs of infection I believe patient should remain on antibiotics as per infectious disease but as far as I am concerned patient can be transferred to rehab anytime Stitches to remain in for about 3 weeks and I will give instructions for the washing and wound care of the stump 06/30/2018 BKA stump is nice and dry no drainage well vascularized Providing that some sort of infection does not recur from deeper tissues or patient does not injured the stump this should heal well He can be discharged from my point any time 07/01/2018 Stump is clean and dry no signs of infection Patient can be discharged any time from my point and stitches will stay in for about 3 weeks total Objective Vital Signs / I&O: Vital Signs 06/30/18 19:50 06/30/18 20:00 07/01/18 00:00 Temperature 97.2 F L 97.1 F L Pulse Rate 92 H 90 90 Respiratory Rate 18 18 Blood Pressure 125/92 H 125/90 Pulse Oximetry 98 96 07/01/18 04:00 07/01/18 07:51 07/01/18 08:00 Temperature 97.1 F L 98.4 F Pulse Rate 90 90 90 Respiratory Rate 16 20 Blood Pressure 130/96 H 121/96 H Pulse Oximetry 100 100 94 L 07/01/18 12:00 07/01/18 12:09 07/01/18 16:00 Temperature 97.2 F L 97.2 F L Pulse Rate 92 H 92 H 91 H Respiratory Rate 18 22 Blood Pressure 130/85 118/86 Pulse Oximetry 97 Intake & Output 06/30/18 07/01/18 07/01/18 18:59 06:59 18:59 Intake Total 290 / 290 240 / 240 Output Total 325 / 325 Balance -35 / -35 240 / 240 Weight 90.2 kg Intake: IV 50 / 50 Zosyn 3.375 GM Premix 50 ML @ 50 / 50 100 mls/hr IV.SIG Q6H LINDA Rx#: [id number] Oral 240 / 240 240 / 240 Output: Urine 325 / 325 Other: # Incontinent Voids 2 Date of Last Bowel Movement 07/01/18 # Bowel Movements 0 2 Laboratory Results - last 24 hr 06/30/18 07/01/18 07/01/18 19:51 08:11 11:14 POC Glucose 107 110 106 Microbiology 06/17/18 12:07 Fungal Smear - Final Wound - Leg No fungal elements seen Fungal Culture - Preliminary No growth in 2 weeks 06/17/18 12:07 Acid Fast Bacilli Smear - Final Wound - Leg No acid fast bacilli seen Mycobacterial Culture - Preliminary No growth in 2 weeks 06/02/18 18:48 Acid Fast Bacilli Smear - Final Wound - Foot No acid fast bacilli seen Mycobacterial Culture - Preliminary No growth in 4 weeks
[2018-07-02] MEDS: Senna/Docusate Sodium 8.6/50 MG Tablet PO SCH ×2 (08:49→21:41)
[2018-07-02] MEDS: Famotidine PF Inj 20 MG/2 ML Vial IV.PUSH SCH ×2 (08:49→21:35)
[2018-07-02] MEDS: Calcium Carbonate 500 MG Tablet PO SCH ×2 (08:50→21:36)
[2018-07-02] MEDS: Furosemide 20 MG Tablet PO SCH ×2 (08:50→17:35)
[2018-07-02] MEDS: Sodium Chloride 0.9% 2 ML Flush BID IV.FLUSH SCH ×2 (08:50→21:41)
[2018-07-02] MEDS: Insulin NovoLOG Aspart Correctional Sugar Inj SQ SCH ×4 (08:52→21:41)
[2018-07-02] MEDS: Collagenase Oint 30 GM Tube TOPICAL SCH ×2 (08:54→08:59)
--- NOTE | 2018-07-02 13:01 | P.PN ---
Subjective Interval history: no comoplains no diarrhea Physical Exam Vital signs: Vital Signs 07/01/18 16:00 07/01/18 19:55 07/01/18 20:00 Temperature 97.2 F L 98.4 F Pulse Rate 91 H 90 78 Respiratory Rate 22 18 Blood Pressure 118/86 118/78 Pulse Oximetry 97 98 07/02/18 00:00 07/02/18 04:00 07/02/18 05:05 Temperature 97.9 F 98.8 F Pulse Rate 91 H 72 87 Respiratory Rate 16 18 Blood Pressure 117/88 128/92 H Pulse Oximetry 96 94 L 07/02/18 08:00 07/02/18 12:00 Temperature 98.0 F 96.0 F L Pulse Rate 92 H 93 H Respiratory Rate 23 22 Blood Pressure 125/93 H 126/89 Pulse Oximetry 97 98 Intake & Output 07/01/18 07/02/18 07/02/18 18:59 06:59 18:59 Intake Total 960 / 960 460 / 460 Output Total 1000 / 1000 350 / 350 Balance -40 / -40 110 / 110 Weight 90.2 kg Intake: Oral 960 / 960 460 / 460 Output: Urine 1000 / 1000 350 / 350 Other: # Incontinent Voids 1 Date of Last Bowel Movement 06/30/18 # Incontinent Bowel Movements 2 Narrative: GENERAL: alert and oriented x3, with no apparent distress SKIN: Warm and dry. Right BKA - stump no infection HEAD: Atraumatic. Normocephalic. EYES: Pupils equal and round. No scleral icterus. No injection or drainage. ENT: No nasal bleeding or discharge. Mucous membranes pink and moist. NECK: Trachea midline. No JVD. CARDIOVASCULAR: Regular rate and rhythm. RESPIRATORY: No accessory muscle use. decreased breath sounds bases GASTROINTESTINAL: Abdomen soft, non-tender, nondistended. Hepatic and splenic margins not palpable. NEUROLOGICAL: Awake, alert oriented x3. No focal deficits. PSYCHIATRIC: Appropriate mood and affect; insight and judgment normal. - Urinary Catheter Management Indwelling Urethral Catheter Cath placed during this visit: yes, but has since been removed by the nurse Reason for continuing: Decision to DC catheter Insertion date: 06/09/18 Insertion time: 13:59 Removal date: 06/09/18 Removal time: 14:57 Results - Labs CBC & Chem 7: 07/03/18 14:35 07/03/18 14:35 Laboratory Results - last 24 hr 07/02/18 08:52 POC Glucose 92 Microbiology 06/17/18 12:07 Wound - Leg Fungal Smear - Final No fungal elements seen 06/17/18 12:07 Wound - Leg Fungal Culture - Preliminary No growth in 2 weeks 06/17/18 12:07 Wound - Leg Acid Fast Bacilli Smear - Final No acid fast bacilli seen 06/17/18 12:07 Wound - Leg Mycobacterial Culture - Preliminary No growth in 2 weeks - Procedures DATE OF OPERATION: 06/24/2018 PREOPERATIVE DIAGNOSIS: Gangrene of the right leg, status post right below-knee guillotine amputation, revision amputation and irrigation with wound VACs. POSTOPERATIVE DIAGNOSIS: Gangrene of the right leg, status post right below-knee guillotine amputation, revision amputation and irrigation with wound VACs. PROCEDURE PERFORMED: Second revision of the amputation and final closure of the posterior flap. SURGEON: Daniel Dexter MD. ANESTHESIA: General. ESTIMATED BLOOD LOSS: 50 mL. DESCRIPTION OF PROCEDURE: The patient was prepped and draped in usual fashion. The wound VAC was removed. The wound was not examined. Posterior flap had been created last time, but could not be closed due to persistent purulent infection. At this point, there is no sign of infection. The entire flap was washed out with pulsatile lavage aggressively, going all the way up behind the medial gastrocnemius and the whole area. This was done with about 3 liters of saline. Once this was completed, flap was re-tailored. First of all, another 1-1/2 inch of tibia was resected using the oscillating saw by the intrafibula. Meticulous hemostasis assured. The bone was rasped down and then a posterior flap was addressed. At this point, edematous, thickened, and clearly cannot be closed, therefore, some of the muscle was now shaved off with an amputation knife, and meticulous hemostasis obtained. This allowed for flexing the flap forward and closure. The flap was now sutured with 0 Vicryl deep layer of fascia at the fascia, and skin was closed with 2-0 Prolene. Dressing applied. The patient tolerated the procedure well. MD RACHID Marin/mahin , 01:07 PM Assessment and Plan - Assessment (1) Status post below knee amputation Code(s): Z89.519 - Acquired absence of unspecified leg below knee Status: Acute (2) Gas gangrene Code(s): A48.0 - Gas gangrene Status: Acute (3) CHF (congestive heart failure) Code(s): I50.9 - Heart failure, unspecified Status: Acute (4) YOLY (acute kidney injury) Code(s): N17.9 - Acute kidney failure, unspecified Status: Acute (5) Sepsis Code(s): A41.9 - Sepsis, unspecified organism Status: Acute - Plan 53-year-old male admitted with acute septic shock, respiratory failure status post extubation and BKA. Patient has been receiving ICU care and stabilized for transfer to the hospitalist service in the medical surgical floor. Septic shock/leukocytosis/respiratory failure with intubation s/p right BKA/Gas Gangrene of the right foot 06/03/18 Status post higher BKA and flap 06/17/18 -Broad-spectrum antibiotic with vancomycin and Zosyn, -ID Consulted, Multiple blood cultures with E. coli, wound culture with E. coli , gram-negative ankur, MRSA on 06/02/18 -Status post I&D and debridement, status post BKA by Dr. Quiles 06/03/18 and higher BKA on 06/17/18 -Continue [place] and morphine IV as needed for breakthrough pain. -s/p Higher BKA 06/17/18-Vascular surgery, plan for stump closure for at least another week or more we will continue wound VAC for now -Right BKA stump with wound vac improved suction and drainage, wound care for wound VAC maintenance, assessment of dressing, discussed with nursing -Wound/leg culture no growth in 72 hours on 06/17/18, fungal culture negative , mycobacterial culture negative -s/p revision of amputation, final closure of post. flap. Wound vac removed - S/P course of Van and zosyn C. difficile, resolving -Continue po Vancomycin 125 mg PO qid x 2 weeks for C diff till 07/15 -d/w dr. Mosley Acute Anemia on chronic, Blood loss anemia likely due to post op blood loss and moderate wound vac drainage -held heparin due to bleeding -S/P PRBC transfusion x 6 total since admission -Last blood transfusion, June 24. HH stable, hemoglobin 9.3, hematocrit 26.7. 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 Sanchez consulted (3) CHF (congestive heart failure) Qualifiers: Heart failure type: unspecified Heart failure chronicity: acute on chronic Qualified Code(s): I50.9 - Heart failure, unspecified (5) Sepsis Qualifiers: Sepsis type: sepsis due to unspecified organism Qualified Code(s): A41.9 - Sepsis, unspecified organism
[2018-07-03] MEDS: Insulin NovoLOG Aspart Correctional Sugar Inj SQ SCH ×4 (08:25→20:58)
[2018-07-03] MEDS: Collagenase Oint 30 GM Tube TOPICAL SCH ×2 (09:10)
[2018-07-03] MEDS: Famotidine PF Inj 20 MG/2 ML Vial IV.PUSH SCH (09:22)
[2018-07-03] MEDS: Senna/Docusate Sodium 8.6/50 MG Tablet PO SCH ×2 (09:23→20:54)
[2018-07-03] MEDS: Calcium Carbonate 500 MG Tablet PO SCH ×2 (09:24→20:54)
[2018-07-03] MEDS: Furosemide 20 MG Tablet PO SCH (09:24)
[2018-07-03] MEDS: Sodium Chloride 0.9% 2 ML Flush BID IV.FLUSH SCH ×2 (09:26→20:54)
--- NOTE | 2018-07-03 12:19 | XR ---
EXAM DATE: 07/03/2018 12:00 AM EDT AGE/SEX: 53 years / Male INDICATIONS: Shortness of breath. CLINICAL DATA: This is the patient's subsequent encounter. Patient reports that signs and symptoms h ave been present for 3 weeks and indicates a pain score of 0/10. MEDICAL/SURGICAL HISTORY: . Congestive heart failure. Diabetes. . Cholecystectomy . COMPARISON: . FINDINGS: Moderate to large right pleural effusion is noted. Small left pleural effusion is noted. The heart is enlarged. Bibasilar infiltrates are noted. CONCLUSION: 1. Moderate to large right pleural effusion and small left pleural effusion. 2. Cardiomegaly. 3. Bibasilar infiltrates. Electronically signed by: Junior Mcnamara MD 07/03/2018 12:18 PM EDT
--- NOTE | 2018-07-03 14:47 | P.PN ---
Subjective Interval history: short of breath on ezxam today Physical Exam Vital signs: Vital Signs 07/02/18 16:00 07/02/18 20:00 07/02/18 22:17 Temperature 96.0 F L 98 F Pulse Rate 93 H 91 H Respiratory Rate 22 18 Blood Pressure 126/89 131/95 H Pulse Oximetry 98 98 94 L 07/03/18 00:00 07/03/18 04:00 07/03/18 06:20 Temperature 98 F 98 F Pulse Rate 90 90 Respiratory Rate 18 18 18 Blood Pressure 134/89 120/70 Pulse Oximetry 98 100 07/03/18 08:00 07/03/18 12:00 Temperature Pulse Rate 88 93 H Respiratory Rate 20 Blood Pressure 118/94 H Pulse Oximetry 98 Intake & Output 07/02/18 07/03/18 07/03/18 18:59 06:59 18:59 Intake Total 460 / 460 Output Total 600 / 600 Balance -140 / -140 Intake: Oral 460 / 460 Output: Urine 600 / 600 Other: Date of Last Bowel Movement 07/02/18 07/03/18 # Bowel Movements 1 Narrative: GENERAL: alert and oriented x3, with no apparent distress SKIN: Warm and dry. HEAD: Atraumatic. Normocephalic. EYES: Pupils equal and round. No scleral icterus. No injection or drainage. ENT: No nasal bleeding or discharge. Mucous membranes pink and moist. NECK: Trachea midline. No JVD. CARDIOVASCULAR: Regular rate and rhythm. RESPIRATORY: No accessory muscle use. decreased breath sounds bases GASTROINTESTINAL: Abdomen soft, non-tender, nondistended. Hepatic and splenic margins not palpable. Extremities: right BKA- stump - no signs of infecture- surtures in place, no erythema, mild swelling left heel- with about a quarter size necrotic heel plantar wound- necrotic , no surrounding erythema NEUROLOGICAL: Awake, alert oriented x3. No focal deficits. PSYCHIATRIC: Appropriate mood and affect; insight and judgment normal. - Urinary Catheter Management Indwelling Urethral Catheter Cath placed during this visit: yes, but has since been removed by the nurse Reason for continuing: Decision to DC catheter Insertion date: 06/09/18 Insertion time: 13:59 Removal date: 06/09/18 Removal time: 14:57 Results - Labs CBC & Chem 7: 07/03/18 14:35 07/03/18 14:35 Laboratory Results - last 24 hr 07/02/18 07/03/18 17:35 12:52 POC Glucose 148 H 120 H - Imaging Impressions Chest X-Ray 07/03/18 00:00 CONCLUSION: 1. Moderate to large right pleural effusion and small left pleural effusion. 2. Cardiomegaly. 3. Bibasilar infiltrates. - Procedures DATE OF OPERATION: 06/24/2018 POSTOPERATIVE DIAGNOSIS: Gangrene of the right leg, status post right below-knee guillotine amputation, revision amputation and irrigation with wound VACs. PROCEDURE PERFORMED: Second revision of the amputation and final closure of the posterior flap. Assessment and Plan - Assessment (1) Status post below knee amputation Code(s): Z89.519 - Acquired absence of unspecified leg below knee Status: Acute (2) Gas gangrene Code(s): A48.0 - Gas gangrene Status: Acute (3) CHF (congestive heart failure) Code(s): I50.9 - Heart failure, unspecified Status: Acute (4) YOLY (acute kidney injury) Code(s): N17.9 - Acute kidney failure, unspecified Status: Acute (5) Sepsis Code(s): A41.9 - Sepsis, unspecified organism Status: Acute - Plan 53-year-old male admitted with acute septic shock, respiratory failure status post extubation and BKA. Patient has been receiving ICU care and stabilized for transfer to the hospitalist service in the medical surgical floor. Septic shock/leukocytosis/respiratory failure with intubation S/P antibiotic course of Vanco and zosyn s/p right BKA/Gas Gangrene of the right foot 06/03/18 Status post higher BKA and flap 06/17/18 -ID ff Multiple blood cultures with E. coli, wound culture with E. coli, gram- negative ankur, MRSA on 06/02/18 -Status post I&D and debridement, status post BKA by Dr. Quiles 06/03/18 and higher BKA on 06/17/18 -Continue [place] and morphine IV as needed for breakthrough pain. -s/p Higher BKA 06/17/18-Vascular surgery, plan for stump closure for at least another week or more we will continue wound VAC for now -Right BKA stump with wound vac improved suction and drainage, wound care for wound VAC maintenance, assessment of dressing, discussed with nursing -Wound/leg culture no growth in 72 hours on 06/17/18, fungal culture negative mycobacterial culture negative -s/p revision of amputation, final closure of post. flap. Wound vac removed - S/P course of Van and zosyn Cardiomyopathy -CHF/generalized edema-- SOB on exam -appears more short of breath -CXray with Bilateral effusion and consolidation, on Broad-spectrum antibiotic with vancomycin and Zosyn, -continue Lasix- change to 40 mg IV bid - continue KCL replacement -start coreg 12.5 mg po bid - get 2dEcho - per patient last EF a year ago was 35% - get BMP, BNP - consider Lexiscan study- r/o CAD or cardiology consult C. difficile, resolving -Continue po Vancomycin 125 mg PO qid x 2 weeks for C diff till 07/15 -d/w dr. Mosley Acute Anemia on chronic, Blood loss anemia- IMproved likely due to post op blood loss and moderate wound vac drainage -held heparin due to bleeding -S/P PRBC transfusion x 6 total since admission -Last blood transfusion, June 24. HH stable, hemoglobin 9.3, hematocrit 26.7. Acute kidney injury/hypokalemia/hypocalcemia Recent Renal Pathology at [facility]: Impression: diffuse and nodular diabetic glomerulosclerosis, moderately advanced and moderate arteriosclerosis and hyalinosis arteriosclerosis -Strict I's and O's. -Monitor electrolytes and creatinine level Diabetes mellitus Type 2 -blood glucose fair controlled - diabetic diet -Insulin sliding scale DVT:Teds SCDs GI prophylaxis:-Pepcid ADD: labs- hyperkalemic- changed to IV Lasix bid earlier DC KCL bid give Kayexalate 30 gm po xc 1 Echo EF 25% Lasix po was changed to 40 mg IV q 12 earlier - order to give first dose now started Coreg 12.5 mg po bid today - increase next few days as BP tolerates cardiology consult - ? ischemic work up- with PVD- Lexiscan vs cath - but elev creat ? AICD candidate - DC planning - Srinath Sanchez consulted (3) CHF (congestive heart failure) Qualifiers: Heart failure type: unspecified Heart failure chronicity: acute on chronic Qualified Code(s): I50.9 - Heart failure, unspecified (5) Sepsis Qualifiers: Sepsis type: sepsis due to unspecified organism Qualified Code(s): A41.9 - Sepsis, unspecified organism
[2018-07-03 15:09] LABS: Baso # (Auto) 0.1 th/mm3 (0.0-0.2); Baso % (Auto) 1.2 % (0.0-2.0); Eos # (Auto) 0.1 th/mm3 (0.0-0.4); Eos % (Auto) 0.9 % (0.0-4.0); Hematocrit 34.6 % (39.0-51.0); Hemoglobin 11.6 gm/dL (13.0-17.0); Lymph # (Auto) 1.9 th/mm3 (1.0-4.8); Mean Corpuscular HGB Conc 33.6 % (32.0-36.0); Mean Corpuscular Hemoglobin 31.2 pg (27.0-34.0); Mean Corpuscular Volume 92.8 fL (80.0-100.0); Mean Platelet Volume 8.1 fL (7.0-11.0); Mono # (Auto) 0.3 th/mm3 (0.0-0.9); Mono % (Auto) 4.1 % (0.0-8.0); Neut # (Auto) 5.4 th/mm3 (1.8-7.7); Neut % (Auto) 69.8 % (16.0-70.0); Platelet Count 331 th/mm3 (150-450); Red Blood Count 3.72 mil/mm3 (4.50-5.90); White Blood Count 7.8 th/mm3 (4.0-11.0)
--- NOTE | 2018-07-03 15:19 | ECHRPT ---
Indication: Heart failure, unspecified CONCLUSIONS The left ventricular systolic function is severely reduced with an estimated ejection fraction less than 20%. There is global hypokinesis. The left atrial size is mycc-ek-[id number] dilated. The right atrium is moderately dilated. Severe mitral valve regurgitation. There is severe tricuspid regurgitation. The estimated pulmonary arterial pressure is 72.7 mmHg. Large pleural effusion is noted. Tiny pericardial effusion. No prior for comparision. BP: / HR: Rhythm: Sinus MEASUREMENTS (Male / Female) Normal Values Technical Quality:Good 2D ECHO LV Diastolic Diameter PLAX 5.5 cm 4.2 - 5.9 / 3.9 - 5.3 cm LV Systolic Diameter PLAX 5.2 cm IVS Diastolic Thickness 0.9 cm 0.6 - 1.0 / 0.6 - 0.9 cm LVPW Diastolic Thickness 1.1 cm 0.6 - 1.0 / 0.6 - 0.9 cm LV Relative Wall Thickness 0.4 LVOT Diameter 2.0 cm M-MODE Aortic Root Diameter MM 2.7 cm LA Systolic Diameter MM 4.7 cm LA Ao Ratio MM 1.7 AV Cusp Separation MM 2.2 cm DOPPLER AV Peak Velocity 61.5 cm/s AV Peak Gradient 1.5 mmHg LVOT Peak Velocity 39.5 cm/s LVOT Peak Gradient 0.6 mmHg AV Area Cont Eq pk 2.0 cm MR Peak Velocity 444.5 cm/s MR Peak Gradient 79.0 mmHg LV E' Lateral Velocity 3.9 cm/s TR Peak Velocity 396.0 cm/s TR Peak Gradient 62.7 mmHg Right Atrial Pressure 10.0 mmHg Pulmonary Artery Systolic Pressu 72.7 mmHg Right Ventricular Systolic Press 72.7 mmHg PV Peak Velocity 70.5 cm/s PV Peak Gradient 2.0 mmHg FINDINGS LEFT VENTRICLE The left ventricular systolic function is severely reduced with an estimated ejection fraction less than 20%. Wall thickness is normal. Mildly dilated left ventricle. RIGHT VENTRICLE Normal right ventricular size and systolic function. LEFT ATRIUM The left atrial size is ubaz-ok-ucraqlkxyu dilated. RIGHT ATRIUM The right atrial is moderately dilated. ATRIAL SEPTUM Not adequately assessed. AORTA The aortic root and proximal ascending aorta are normal in size on limited imaging. MITRAL VALVE Severe mitral valve regurgitation. AORTIC VALVE Trileaflet aortic valve. No aortic valve stenosis or regurgitation. TRICUSPID VALVE There is severe tricuspid regurgitation. The estimated pulmonary arterial pressure is 72.7 mmHg. PULMONARY VALVE No pulmonary valve regurgitation or stenosis. VESSELS The inferior vena cava not well visualized. PERICARDIUM Tiny perficardial effusion noted. Tammy Hernandez MD (Electronically Signed) Final Date:03 July 2018 15:17
[2018-07-03 15:32] LABS: Calcium 8.2 mg/dL (8.5-10.1); Potassium 6.2 meq/L (3.5-5.1)
[2018-07-03] MEDS ORDERED: Sodium Polystyrene Sulfonate Powder 15 GM Bottle PO STA (17:37)
[2018-07-03] MEDS ORDERED: Sodium Polystyrene Sulfonate/Sorbitol Liq 15 GM/60 ML UDC PO STA (17:47)
--- NOTE | 2018-07-03 19:01 | P.PNPOD ---
Subjective Interval history: left heel ulcer Physical Exam Vital signs: Vital Signs 07/02/18 20:00 07/02/18 22:17 07/03/18 00:00 Temperature 98 F 98 F Pulse Rate 91 H 90 Respiratory Rate 18 18 Blood Pressure 131/95 H 134/89 Pulse Oximetry 98 94 L 98 07/03/18 04:00 07/03/18 06:20 07/03/18 08:00 Temperature 98 F Pulse Rate 90 88 Respiratory Rate 18 18 20 Blood Pressure 120/70 118/94 H Pulse Oximetry 100 98 07/03/18 12:00 07/03/18 16:00 Temperature Pulse Rate 91 H 91 H Respiratory Rate 20 20 Blood Pressure 98/77 L 124/96 H Pulse Oximetry 99 98 Intake & Output 07/02/18 07/03/18 07/03/18 18:59 06:59 18:59 Intake Total 460 / 460 600 / 600 Output Total 600 / 600 Balance -140 / -140 600 / 600 Intake: Oral 460 / 460 600 / 600 Output: Urine 600 / 600 Other: # Voids 1 Date of Last Bowel Movement 07/02/18 07/03/18 # Bowel Movements 1 1 Narrative: Left plantar/posterior heel with eschar 3cm diameter. Stable margins. No drainage present. No sign of infection Medications and Allergies Active Medications: Active Medications Acetaminophen (Tylenol) 650 mg PO Q4H PRN PRN Reason: Temp > 100.4 Acetaminophen (Tylenol) 650 mg PO Q4H PRN PRN Reason: SEE LABEL COMMENTS Last Admin: 06/24/18 19:21 Dose: 650 mg Hydrocodone Bitart/Acetaminophen ([place] 7.5/325) 1 tab PO Q4H PRN PRN Reason: PAIN SCALE 6 TO 10 Last Admin: 07/03/18 14:53 Dose: 1 tab Al Hydroxide/Mg Hydroxide (Milk Of Magnesia Liq) 30 ml PO Q12H PRN PRN Reason: Mild Constipation Albuterol (Duoneb Neb (Prn)) 1 ampul NEB Q4HR NEB PRN PRN Reason: sob Last Admin: 06/25/18 21:24 Dose: 1 ampul Bisacodyl (Dulcolax Supp) 10 mg RECTAL DAILY PRN PRN Reason: SEVERE CONSITIPATION Calcium Carbonate (Oscal) 500 mg PO BID LINDA Last Admin: 07/03/18 09:24 Dose: 500 mg Carvedilol (Coreg) 12.5 mg PO BID [facility] Collagenase (Santyl Oint) 1 applicatio TOPICAL DAILY [facility] Last Admin: 07/03/18 09:10 Dose: 1 applicatio Collagenase (Santyl Oint) 1 applicatio TOPICAL DAILY [facility] Last Admin: 07/03/18 09:10 Dose: 1 applicatio Dextrose (D50w Vial) 50 ml IV.PUSH UNSCH PRN PRN Reason: PER HYPOGLYCEMIA PROTOCOL Diphenhydramine HCl (Benadryl) 25 mg PO Q4H PRN PRN Reason: SEE LABEL COMMENTS Last Admin: 06/24/18 19:22 Dose: 25 mg Famotidine (Pepcid) 20 mg PO BID [facility] Furosemide (Lasix Inj) 40 mg IV.PUSH BID@0900,1800 [facility] Last Admin: 07/03/18 18:00 Dose: 40 mg Glucagon (Glucagon Inj) 1 mg OTHER UNSCH PRN PRN Reason: for Hypoglycemia Protocol Insulin Aspart (Novolog Insulin [place] Sugar Inj) 0 unit SQ [facility]; Protocol Last Admin: 07/03/18 17:56 Dose: Not Given Lactulose (Lactulose Liq) 30 ml PO DAILY PRN PRN Reason: SEVERE CONSITIPATION Senna/Docusate Sodium (Bee-Colace) 1 tab PO BID [facility] Last Admin: 07/03/18 09:23 Dose: Not Given Sennosides (Senokot) 17.2 mg PO Q12H PRN PRN Reason: Moderate Constipation Sodium Chloride (Ns Flush) 2 ml IV.FLUSH BID [facility] Last Admin: 07/03/18 09:26 Dose: 2 ml Sodium Chloride (Ns Flush) 2 ml IV.FLUSH PRN PRN PRN Reason: FLUSH AFTER USING IV ACCESS Last Admin: 07/01/18 08:25 Dose: 2 ml Terbutaline Sulfate (Brethine Inj) 1 mg SQ UNSCH PRN PRN Reason: For Extravasation Vancomycin HCl (Vancomycin Po) 125 mg PO QID [facility] Stop: 07/15/18 12:59 Last Admin: 07/03/18 17:59 Dose: 125 mg Allergies Allergy/AdvReac Type Severity Reaction Status Date / Time No Known Allergies Allergy Unverified 06/02/18 15:19 Home Medications Medication Instructions Recorded Confirmed Type aspirin 81 mg PO DAILY 06/02/18 06/02/18 History atorvastatin [Lipitor] 40 mg PO DAILY 06/02/18 06/02/18 History bumetanide 2 mg PO DAILY 06/02/18 06/02/18 History carvedilol [Coreg] 25 mg PO BID 06/02/18 06/02/18 History chlorthalidone 25 mg PO DAILY 06/02/18 06/02/18 History folic acid 1 mg PO DAILY 06/02/18 06/02/18 History lisinopril 5 mg PO DAILY 06/02/18 06/02/18 History Results - Labs CBC & Chem 7: 07/03/18 14:35 07/03/18 14:35 Laboratory Results - last 24 hr 07/03/18 07/03/18 07/03/18 12:52 14:35 14:35 WBC 7.8 RBC 3.72 L Hgb 11.6 L Hct 34.6 L MCV 92.8 MCH 31.2 MCHC 33.6 RDW 21.0 H Plt Count 331 MPV 8.1 Neut % (Auto) 69.8 Lymph % (Auto) 24.0 [place] % (Auto) 4.1 Eos % (Auto) 0.9 Baso % (Auto) 1.2 Neut # (Auto) 5.4 Lymph # (Auto) 1.9 [place] # (Auto) 0.3 Eos # (Auto) 0.1 Baso # (Auto) 0.1 WBC Differential . Differential Comment Auto diff final Sodium 136 Potassium 6.2 H Chloride 107 Carbon Dioxide 27.0 Anion Gap 2 L BUN 28 H Creatinine 1.67 H Estimated GFR 43 L POC Glucose 120 H Random Glucose 84 Calcium 8.2 L B-Natriuretic Peptide 07/03/18 07/03/18 14:48 17:55 WBC RBC Hgb Hct MCV MCH MCHC RDW Plt Count MPV Neut % (Auto) Lymph % (Auto) [place] % (Auto) Eos % (Auto) Baso % (Auto) Neut # (Auto) Lymph # (Auto) [place] # (Auto) Eos # (Auto) Baso # (Auto) WBC Differential Differential Comment Sodium Potassium Chloride Carbon Dioxide Anion Gap BUN Creatinine Estimated GFR POC Glucose 102 Random Glucose Calcium B-Natriuretic Peptide 1937 H - Imaging Impressions Chest X-Ray 07/03/18 00:00 CONCLUSION: 1. Moderate to large right pleural effusion and small left pleural effusion. 2. Cardiomegaly. 3. Bibasilar infiltrates. - Procedures DATE OF OPERATION: 06/24/2018 POSTOPERATIVE DIAGNOSIS: Gangrene of the right leg, status post right below-knee guillotine amputation, revision amputation and irrigation with wound VACs. PROCEDURE PERFORMED: Second revision of the amputation and final closure of the posterior flap. Assessment and Plan - Assessment (1) Gangrene Code(s): I96 - Gangrene, not elsewhere classified Status: Acute (2) Gas gangrene of foot Code(s): A48.0 - Gas gangrene Status: Acute (3) Sepsis Code(s): A41.9 - Sepsis, unspecified organism Status: Acute (4) Ulcer of left heel and midfoot with necrosis of muscle Code(s): L97.423 - Non-pressure chronic ulcer of left heel and midfoot with necrosis of muscle Status: Acute Plan: Continue santyl dressings daily to left heel. Continue offloading (3) Sepsis Qualifiers: Sepsis type: sepsis due to unspecified organism Qualified Code(s): A41.9 - Sepsis, unspecified organism
[2018-07-03] MEDS: Famotidine 20 MG Tablet PO SCH (20:53)
[2018-07-03] MEDS: Carvedilol 12.5 MG Tablet PO SCH (20:54)
[2018-07-04] MEDS: Insulin NovoLOG Aspart Correctional Sugar Inj SQ SCH ×4 (08:12→20:47)
[2018-07-04] MEDS: Calcium Carbonate 500 MG Tablet PO SCH ×2 (08:13→20:47)
[2018-07-04] MEDS: Carvedilol 12.5 MG Tablet PO SCH ×3 (08:14→20:46)
[2018-07-04] MEDS: Famotidine 20 MG Tablet PO SCH ×2 (08:14→20:46)
[2018-07-04] MEDS: Sodium Chloride 0.9% 2 ML Flush BID IV.FLUSH SCH ×2 (08:15→20:47)
[2018-07-04] MEDS: Collagenase Oint 30 GM Tube TOPICAL SCH ×2 (08:16)
[2018-07-04] MEDS: Senna/Docusate Sodium 8.6/50 MG Tablet PO SCH ×2 (08:16→20:47)
--- NOTE | 2018-07-04 10:38 | P.PN ---
Subjective Interval history: up on chair- orthopneic- states voiding a lot easily short of breath exam- decreased breath sounds- Physical Exam Vital signs: Vital Signs 07/03/18 12:00 07/03/18 16:00 07/03/18 20:00 Temperature 97.0 F L Pulse Rate 91 H 91 H 88 Respiratory Rate 20 20 18 Blood Pressure 98/77 L 124/96 H 132/96 H Pulse Oximetry 99 98 100 07/03/18 21:35 07/04/18 00:00 07/04/18 04:00 Temperature 97.1 F L 97.7 F Pulse Rate 87 82 85 Respiratory Rate 18 18 18 Blood Pressure 128/88 130/86 Pulse Oximetry 99 97 98 07/04/18 07:22 07/04/18 08:00 Temperature Pulse Rate 80 88 Respiratory Rate 18 21 Blood Pressure 115/82 Pulse Oximetry 98 96 Intake & Output 07/03/18 07/04/18 07/04/18 18:59 06:59 18:59 Intake Total 600 / 600 Output Total 750 / 750 Balance 600 / 600 -750 / -750 Weight 91.3 kg Intake: Oral 600 / 600 Output: Urine 750 / 750 Other: # Voids 1 # Incontinent Voids 1 Date of Last Bowel Movement 07/03/18 07/03/18 # Bowel Movements 1 Narrative: GENERAL: alert and oriented x3, SKIN: Warm and dry. Right BKA - stump no infection HEAD: Atraumatic. Normocephalic. EYES: Pupils equal and round. No scleral icterus. No injection or drainage. ENT: No nasal bleeding or discharge. Mucous membranes pink and moist. NECK: Trachea midline. CARDIOVASCULAR: Regular rate and rhythm. RESPIRATORY: decreased breath sounds bases extremities + edema, right BKA, left heel ulcer GASTROINTESTINAL: Abdomen soft, non-tender, nondistended. Hepatic and splenic margins not palpable. NEUROLOGICAL: Awake, alert oriented x3. PSYCHIATRIC: Appropriate mood and affect; insight and judgment normal. - Urinary Catheter Management Indwelling Urethral Catheter Cath placed during this visit: yes, but has since been removed by the nurse Reason for continuing: Decision to DC catheter Insertion date: 06/09/18 Insertion time: 13:59 Removal date: 06/09/18 Removal time: 14:57 Results - Labs CBC & Chem 7: 07/03/18 14:35 07/05/18 06:13 Laboratory Results - last 24 hr 07/03/18 07/03/18 07/03/18 12:52 14:35 14:35 WBC 7.8 RBC 3.72 L Hgb 11.6 L Hct 34.6 L MCV 92.8 MCH 31.2 MCHC 33.6 RDW 21.0 H Plt Count 331 MPV 8.1 Neut % (Auto) 69.8 Lymph % (Auto) 24.0 Glenn % (Auto) 4.1 Eos % (Auto) 0.9 Baso % (Auto) 1.2 Neut # (Auto) 5.4 Lymph # (Auto) 1.9 [place] # (Auto) 0.3 Eos # (Auto) 0.1 Baso # (Auto) 0.1 WBC Differential . Differential Comment Auto diff final Sodium 136 Potassium 6.2 H Chloride 107 Carbon Dioxide 27.0 Anion Gap 2 L BUN 28 H Creatinine 1.67 H Estimated GFR 43 L POC Glucose 120 H Random Glucose 84 Calcium 8.2 L B-Natriuretic Peptide 07/03/18 07/03/18 07/03/18 14:48 17:55 20:57 WBC RBC Hgb Hct MCV MCH MCHC RDW Plt Count MPV Neut % (Auto) Lymph % (Auto) [place] % (Auto) Eos % (Auto) Baso % (Auto) Neut # (Auto) Lymph # (Auto) Glenn # (Auto) Eos # (Auto) Baso # (Auto) WBC Differential Differential Comment Sodium Potassium Chloride Carbon Dioxide Anion Gap BUN Creatinine Estimated GFR POC Glucose 102 94 Random Glucose Calcium B-Natriuretic Peptide 1937 H - Imaging Impressions Chest X-Ray 07/03/18 00:00 CONCLUSION: 1. Moderate to large right pleural effusion and small left pleural effusion. 2. Cardiomegaly. 3. Bibasilar infiltrates. - Procedures DATE OF OPERATION: 06/24/2018 PREOPERATIVE DIAGNOSIS: Gangrene of the right leg, status post right below-knee guillotine amputation, revision amputation and irrigation with wound VACs. POSTOPERATIVE DIAGNOSIS: Gangrene of the right leg, status post right below-knee guillotine amputation, revision amputation and irrigation with wound VACs. PROCEDURE PERFORMED: Second revision of the amputation and final closure of the posterior flap. SURGEON: Daniel Dexter MD. ANESTHESIA: General. ESTIMATED BLOOD LOSS: 50 mL. DESCRIPTION OF PROCEDURE: The patient was prepped and draped in usual fashion. The wound VAC was removed. The wound was not examined. Posterior flap had been created last time, but could not be closed due to persistent purulent infection. At this point, there is no sign of infection. The entire flap was washed out with pulsatile lavage aggressively, going all the way up behind the medial gastrocnemius and the whole area. This was done with about 3 liters of saline. Once this was completed, flap was re-tailored. First of all, another 1-1/2 inch of tibia was resected using the oscillating saw by the intrafibula. Meticulous hemostasis assured. The bone was rasped down and then a posterior flap was addressed. At this point, edematous, thickened, and clearly cannot be closed, therefore, some of the muscle was now shaved off with an amputation knife, and meticulous hemostasis obtained. This allowed for flexing the flap forward and closure. The flap was now sutured with 0 Vicryl deep layer of fascia at the fascia, and skin was closed with 2-0 Prolene. Dressing applied. The patient tolerated the procedure well. MD RACHID Marin/mahin , 01:07 PM Assessment and Plan - Assessment (1) Status post below knee amputation Code(s): Z89.519 - Acquired absence of unspecified leg below knee Status: Acute (2) Gas gangrene Code(s): A48.0 - Gas gangrene Status: Acute (3) CHF (congestive heart failure) Code(s): I50.9 - Heart failure, unspecified Status: Acute (4) YOLY (acute kidney injury) Code(s): N17.9 - Acute kidney failure, unspecified Status: Acute (5) Sepsis Code(s): A41.9 - Sepsis, unspecified organism Status: Acute - Plan 53-year-old male admitted with acute septic shock, respiratory failure status post extubation and BKA. Patient has been receiving ICU care and stabilized for transfer to the hospitalist service in the medical surgical floor. Septic shock/leukocytosis/respiratory failure with intubation s/p right BKA/Gas Gangrene of the right foot 06/03/18 Status post higher BKA and flap 06/17/18 -Broad-spectrum antibiotic with vancomycin and Zosyn, -ID Consulted, Multiple blood cultures with E. coli, wound culture with E. coli , gram-negative ankur, MRSA on 06/02/18 -Status post I&D and debridement, status post BKA by Dr. Quiles 06/03/18 and higher BKA on 06/17/18 -Continue [place] and morphine IV as needed for breakthrough pain. -s/p Higher BKA 06/17/18-Vascular surgery, plan for stump closure for at least another week or more we will continue wound VAC for now -Right BKA stump with wound vac improved suction and drainage, wound care for wound VAC maintenance, assessment of dressing, discussed with nursing -Wound/leg culture no growth in 72 hours on 06/17/18, fungal culture negative , mycobacterial culture negative -s/p revision of amputation, final closure of post. flap. Wound vac removed - S/P course of Van and zosyn Cardiomyopathy -CHF/generalized edema-EF 20% -CXray with Bilateral effusion -on Lasix 20 mg po bid - changed to 40 mg IV q 12 07/03. Increase coreg dose to 25 mg bid - get 2dEcho -20%- per patient a year ago was 30% - will not start ANGELA/ARB with recent YOLY and hyperkalemia - Cardiology consult- ? AICD candidate -on d/w patient - AICD - at one point this was planned for him apparently in [place], [place]- but due to no insurance was not done C. difficile, resolving -Continue po Vancomycin 125 mg PO qid x 2 weeks for C diff till 07/15 -d/w dr. Mosley Acute Anemia on chronic, Blood loss anemia likely due to post op blood loss and moderate wound vac drainage -held heparin due to bleeding -S/P PRBC transfusion x 6 total since admission -Last blood transfusion, June 24. HH stable, hemoglobin 9.3, hematocrit 26.7. Acute kidney injury Recent Renal Pathology at [facility]: Impression: diffuse and nodular diabetic glomerulosclerosis, moderately advanced and moderate arteriosclerosis and hyalinosis arteriosclerosis -Strict I's and O's. -Monitor electrolytes and creatinine level on IV diuretics HYperkalemia- 07/03 labs - on IV Lasix bid 40 mg IV q 12 - received Kayexalate 30 gm 07/03. KCL supplements was DC 07/03 - repeat BMP today Diabetes mellitus Type 2 -blood glucose fair controlled - diabetic diet -Insulin sliding scale DVT:Teds SCDs GI prophylaxis:-Pepcid 3 pm ADD- repeat K level back 6.2 - give kayexalate 30 gm x 1 now - Sodium Bicarbonate 1 am IV x 1 - instruct nurse to give IV Lasix early - recheck in am (3) CHF (congestive heart failure) Qualifiers: Heart failure type: unspecified Heart failure chronicity: acute on chronic Qualified Code(s): I50.9 - Heart failure, unspecified (5) Sepsis Qualifiers: Sepsis type: sepsis due to unspecified organism Qualified Code(s): A41.9 - Sepsis, unspecified organism
[2018-07-04 11:40] LABS: Calcium 7.7 mg/dL (8.5-10.1); Carbon Dioxide 21.4 meq/L (21.0-32.0); Potassium 6.2 meq/L (3.5-5.1)
[2018-07-04] MEDS ORDERED: Sodium Polystyrene Sulfonate/Sorbitol Liq 15 GM/60 ML UDC PO ONE (14:01)
[2018-07-04] MEDS ORDERED: Sodium Bicarbonate 8.4% Inj 50 MEQ/50 ML Syringe IV.PUSH ONE (14:02)
--- NOTE | 2018-07-05 06:51 | P.PNCA ---
Medications and Allergies Active Medications: Active Medications Acetaminophen (Tylenol) 650 mg PO Q4H PRN PRN Reason: Temp > 100.4 Acetaminophen (Tylenol) 650 mg PO Q4H PRN PRN Reason: SEE LABEL COMMENTS Last Admin: 06/24/18 19:21 Dose: 650 mg Hydrocodone Bitart/Acetaminophen ([place] 7.5/325) 1 tab PO Q4H PRN PRN Reason: PAIN SCALE 6 TO 10 Last Admin: 07/04/18 19:03 Dose: 1 tab Al Hydroxide/Mg Hydroxide (Milk Of Magnesia Liq) 30 ml PO Q12H PRN PRN Reason: Mild Constipation Albuterol (Duoneb Neb (Prn)) 1 ampul NEB Q4HR NEB PRN PRN Reason: sob Last Admin: 07/04/18 13:15 Dose: 1 ampul Bisacodyl (Dulcolax Supp) 10 mg RECTAL DAILY PRN PRN Reason: SEVERE CONSITIPATION Calcium Carbonate (Oscal) 500 mg PO BID REPLACED BY [facility] Last Admin: 07/04/18 20:47 Dose: 500 mg Carvedilol (Coreg) 25 mg PO BID REPLACED BY [facility] Last Admin: 07/04/18 20:46 Dose: 25 mg Collagenase (Santyl Oint) 1 applicatio TOPICAL DAILY REPLACED BY [facility] Last Admin: 07/04/18 08:16 Dose: 1 applicatio Collagenase (Santyl Oint) 1 applicatio TOPICAL DAILY REPLACED BY [facility] Last Admin: 07/04/18 08:16 Dose: 1 applicatio Dextrose (D50w Vial) 50 ml IV.PUSH UNSCH PRN PRN Reason: PER HYPOGLYCEMIA PROTOCOL Diphenhydramine HCl (Benadryl) 25 mg PO Q4H PRN PRN Reason: SEE LABEL COMMENTS Last Admin: 06/24/18 19:22 Dose: 25 mg Famotidine (Pepcid) 20 mg PO BID REPLACED BY [facility] Last Admin: 07/04/18 20:46 Dose: 20 mg Furosemide (Lasix Inj) 40 mg IV.PUSH BID@0900,1800 REPLACED BY [facility] Last Admin: 07/04/18 17:19 Dose: 40 mg Glucagon (Glucagon Inj) 1 mg OTHER UNSCH PRN PRN Reason: for Hypoglycemia Protocol Insulin Aspart (Novolog Insulin Correctional Sugar Inj) 0 unit SQ ACHS REPLACED BY [facility]; Protocol Last Admin: 07/04/18 20:47 Dose: Not Given Lactulose (Lactulose Liq) 30 ml PO DAILY PRN PRN Reason: SEVERE CONSITIPATION Senna/Docusate Sodium (Bee-Colace) 1 tab PO BID REPLACED BY [facility] Last Admin: 07/04/18 20:47 Dose: 1 tab Sennosides (Senokot) 17.2 mg PO Q12H PRN PRN Reason: Moderate Constipation Sodium Chloride (Ns Flush) 2 ml IV.FLUSH BID REPLACED BY [facility] Last Admin: 07/04/18 20:47 Dose: 2 ml Sodium Chloride (Ns Flush) 2 ml IV.FLUSH PRN PRN PRN Reason: FLUSH AFTER USING IV ACCESS Last Admin: 07/01/18 08:25 Dose: 2 ml Terbutaline Sulfate (Brethine Inj) 1 mg SQ UNSCH PRN PRN Reason: For Extravasation Vancomycin HCl (Vancomycin Po) 125 mg PO QID REPLACED BY [facility] Stop: 07/15/18 12:59 Last Admin: 07/04/18 20:47 Dose: 125 mg Allergies Allergy/AdvReac Type Severity Reaction Status Date / Time No Known Allergies Allergy Unverified 06/02/18 15:19 Home Medications Medication Instructions Recorded Confirmed Type aspirin 81 mg PO DAILY 06/02/18 06/02/18 History atorvastatin [Lipitor] 40 mg PO DAILY 06/02/18 06/02/18 History bumetanide 2 mg PO DAILY 06/02/18 06/02/18 History carvedilol [Coreg] 25 mg PO BID 06/02/18 06/02/18 History chlorthalidone 25 mg PO DAILY 06/02/18 06/02/18 History folic acid 1 mg PO DAILY 06/02/18 06/02/18 History lisinopril 5 mg PO DAILY 06/02/18 06/02/18 History Physical Exam Vital signs: Vital Signs 07/04/18 07:22 07/04/18 08:00 07/04/18 12:00 Temperature Pulse Rate 80 86 82 Respiratory Rate 18 21 20 Blood Pressure 115/82 122/86 Pulse Oximetry 98 96 100 07/04/18 13:15 07/04/18 16:00 07/04/18 19:37 Temperature Pulse Rate 88 83 Respiratory Rate 16 20 19 Blood Pressure 106/78 Pulse Oximetry 100 07/04/18 20:00 07/05/18 00:00 07/05/18 03:45 Temperature 97.1 F L 97.8 F Pulse Rate 77 72 Respiratory Rate 18 18 Blood Pressure 112/86 99/75 L Pulse Oximetry 100 99 100 Intake & Output 07/04/18 07/04/18 07/05/18 06:59 18:59 06:59 Intake Total 442 / 442 Output Total 750 / 750 50 / 50 Balance -750 / -750 392 / 392 Weight 91.3 kg Intake: Oral 442 / 442 Output: Urine 750 / 750 50 / 50 Other: # Voids 1 # Incontinent Voids 1 4 Date of Last Bowel Movement 07/04/18 07/05/18 # Bowel Movements 3 # Incontinent Bowel Movements 3 - Urinary Catheter Management Indwelling Urethral Catheter Cath placed during this visit: yes, but has since been removed by the nurse Reason for continuing: Decision to DC catheter Insertion date: 06/09/18 Insertion time: 13:59 Removal date: 06/09/18 Removal time: 14:57 Results 07/03/18 14:35 07/04/18 10:12 Cardiac Enzymes 07/03/18 Range/Units 14:48 B-Natriuretic Peptide 1937 H (0-100) pg/mL Coagulation 07/03/18 Range/Units 14:48 B-Natriuretic Peptide 1937 H (0-100) pg/mL CBC 07/03/18 Range/Units 14:35 WBC 7.8 (4.0-11.0) th/mm3 RBC 3.72 L (4.50-5.90) mil/mm3 Hgb 11.6 L (13.0-17.0) gm/dL Hct 34.6 L (39.0-51.0) % Plt Count 331 (150-450) th/mm3 Neut # (Auto) 5.4 (1.8-7.7) th/mm3 Lymph # (Auto) 1.9 (1.0-4.8) th/mm3 [place] # (Auto) 0.3 (0.0-0.9) th/mm3 Eos # (Auto) 0.1 (0.0-0.4) th/mm3 Baso # (Auto) 0.1 (0.0-0.2) th/mm3 Comprehensive Metabolic Panel 07/03/18 07/04/18 Range/Units 14:35 10:12 Sodium 136 134 L (136-145) meq/L Potassium 6.2 H 6.2 H (3.5-5.1) meq/L Chloride 107 106 (98-107) meq/L Carbon Dioxide 27.0 21.4 (21.0-32.0) meq/L BUN 28 H 33 H (7-18) mg/dL Creatinine 1.67 H 1.77 H (0.60-1.30) mg/dL Calcium 8.2 L 7.7 L (8.5-10.1) mg/dL Intake and Output 07/04/18 07/04/18 07/05/18 14:59 22:59 06:59 Intake Total 442 / 442 Output Total 50 / 50 Balance 392 / 392 Intake: Oral 442 / 442 Output: Urine 50 / 50 Other: # Voids 1 # Incontinent Voids 4 Date of Last Bowel Movement 07/03/18 07/04/18 07/05/18 # Bowel Movements 3 # Incontinent Bowel Movements 3 - Imaging and Cardiology Imaging: Impressions Chest X-Ray 07/03/18 00:00 CONCLUSION: 1. Moderate to large right pleural effusion and small left pleural effusion. 2. Cardiomegaly. 3. Bibasilar infiltrates. Assessment and Plan - Plan Acutely decompenstated CHF EF 25% -continue coreg 25mg po BID -continue Lasix 40mg IV BID -once optimized would consider Lexiscan to evaluate for potential revascularization -watch renal function, plan to start ANGELA-i once Cr. Stable.
[2018-07-05 08:09] LABS: Calcium 7.4 mg/dL (8.5-10.1); Carbon Dioxide 29.1 meq/L (21.0-32.0); Potassium 6.1 meq/L (3.5-5.1)
--- NOTE | 2018-07-05 08:41 | P.PN ---
Subjective Interval history: K 6.2- yesterday- on IV Lasix 40 mg bid, gave 50 cc x 1 IV NaHC03, Kayexalate 30 gm x 2 doses- 07/03/07/04 Potassium today- 6.1 patient sitting up side of the bed - appears in no acute distress + diarrhea from the Kayexalate sinus on exam reviewed diet- gets 1/2 banana every day- will SARA cevallos ordered this am- for monitoring Physical Exam Vital signs: Vital Signs 07/04/18 12:00 07/04/18 13:15 07/04/18 16:00 Temperature Pulse Rate 82 88 83 Respiratory Rate 20 16 20 Blood Pressure 122/86 106/78 Pulse Oximetry 100 100 07/04/18 19:37 07/04/18 20:00 07/05/18 00:00 Temperature 97.1 F L 97.8 F Pulse Rate 77 72 Respiratory Rate 19 18 18 Blood Pressure 112/86 99/75 L Pulse Oximetry 100 99 07/05/18 02:30 07/05/18 03:45 07/05/18 04:00 Temperature 97.2 F L Pulse Rate 70 Respiratory Rate 19 18 Blood Pressure 100/80 Pulse Oximetry 100 98 Intake & Output 07/04/18 07/05/18 07/05/18 18:59 06:59 18:59 Intake Total 442 / 442 Output Total 50 / 50 Balance 392 / 392 Intake: Oral 442 / 442 Output: Urine 50 / 50 Other: # Voids 1 # Incontinent Voids 4 Date of Last Bowel Movement 07/04/18 07/05/18 # Bowel Movements 3 # Incontinent Bowel Movements 3 Narrative: GENERAL: alert and oriented x3, SKIN: Warm and dry. Right BKA - stump no infection HEAD: Atraumatic. Normocephalic. EYES: Pupils equal and round. No scleral icterus. No injection or drainage. ENT: No nasal bleeding or discharge. Mucous membranes pink and moist. NECK: Trachea midline. CARDIOVASCULAR: Regular rate and rhythm. RESPIRATORY: decreased breath sounds bases extremities + edema, right BKA, left heel ulcer - dressing in place GASTROINTESTINAL: Abdomen soft, non-tender, NEUROLOGICAL: Awake, alert oriented x3. PSYCHIATRIC: Appropriate mood and affect; insight and judgment normal. cevallos in place + penile edema - Urinary Catheter Management Indwelling Urethral Catheter Cath placed during this visit: yes, but has since been removed by the nurse Urethral indwelling: Yes Reason for continuing: Hourly intake/output Insertion date: 07/05/18 Removal time: 14:57 Results - Labs CBC & Chem 7: 07/03/18 14:35 07/05/18 06:13 Laboratory Results - last 24 hr 07/04/18 07/04/18 07/04/18 10:12 13:15 17:18 Sodium 134 L Potassium 6.2 H Chloride 106 Carbon Dioxide 21.4 Anion Gap 7 BUN 33 H Creatinine 1.77 H Estimated GFR 41 L POC Glucose 121 H 102 Random Glucose 80 Calcium 7.7 L 07/05/18 07/05/18 06:13 07:57 Sodium 138 Potassium 6.1 H Chloride 104 Carbon Dioxide 29.1 Anion Gap 5 BUN 42 H Creatinine 1.90 H Estimated GFR 37 L POC Glucose 106 Random Glucose 86 Calcium 7.4 L* - Procedures DATE OF OPERATION: 06/24/2018 PREOPERATIVE DIAGNOSIS: Gangrene of the right leg, status post right below-knee guillotine amputation, revision amputation and irrigation with wound VACs. POSTOPERATIVE DIAGNOSIS: Gangrene of the right leg, status post right below-knee guillotine amputation, revision amputation and irrigation with wound VACs. PROCEDURE PERFORMED: Second revision of the amputation and final closure of the posterior flap. SURGEON: Daniel Dexter MD. ANESTHESIA: General. ESTIMATED BLOOD LOSS: 50 mL. DESCRIPTION OF PROCEDURE: The patient was prepped and draped in usual fashion. The wound VAC was removed. The wound was not examined. Posterior flap had been created last time, but could not be closed due to persistent purulent infection. At this point, there is no sign of infection. The entire flap was washed out with pulsatile lavage aggressively, going all the way up behind the medial gastrocnemius and the whole area. This was done with about 3 liters of saline. Once this was completed, flap was re-tailored. First of all, another 1-1/2 inch of tibia was resected using the oscillating saw by the intrafibula. Meticulous hemostasis assured. The bone was rasped down and then a posterior flap was addressed. At this point, edematous, thickened, and clearly cannot be closed, therefore, some of the muscle was now shaved off with an amputation knife, and meticulous hemostasis obtained. This allowed for flexing the flap forward and closure. The flap was now sutured with 0 Vicryl deep layer of fascia at the fascia, and skin was closed with 2-0 Prolene. Dressing applied. The patient tolerated the procedure well. MD RACHID Marin/mahin , 01:07 PM Assessment and Plan - Assessment (1) Status post below knee amputation Code(s): Z89.519 - Acquired absence of unspecified leg below knee Status: Acute (2) Gas gangrene Code(s): A48.0 - Gas gangrene Status: Acute (3) CHF (congestive heart failure) Code(s): I50.9 - Heart failure, unspecified Status: Acute (4) YOLY (acute kidney injury) Code(s): N17.9 - Acute kidney failure, unspecified Status: Acute (5) Sepsis Code(s): A41.9 - Sepsis, unspecified organism Status: Acute - Plan 53-year-old male admitted with acute septic shock, respiratory failure status post extubation and BKA. Patient has been receiving ICU care and stabilized for transfer to the hospitalist service in the medical surgical floor. Septic shock/leukocytosis/respiratory failure with intubation s/p right BKA/Gas Gangrene of the right foot 06/03/18 Status post higher BKA and flap 06/17/18 -Broad-spectrum antibiotic with vancomycin and Zosyn, -ID Consulted, Multiple blood cultures with E. coli, wound culture with E. coli , gram-negative ankur, MRSA on 06/02/18 -Status post I&D and debridement, status post BKA by Dr. Quiles 06/03/18 and higher BKA on 06/17/18 -Continue Energy and morphine IV as needed for breakthrough pain. -s/p Higher BKA 06/17/18-Vascular surgery, plan for stump closure for at least another week or more we will continue wound VAC for now -Right BKA stump with wound vac improved suction and drainage, wound care for wound VAC maintenance, assessment of dressing, discussed with nursing -Wound/leg culture no growth in 72 hours on 06/17/18, fungal culture negative , mycobacterial culture negative -s/p revision of amputation, final closure of post. flap. Wound vac removed - S/P course of Van and zosyn Cardiomyopathy -CHF/generalized edema-EF 20%- not in acute failure -CXray with Bilateral effusion -on Lasix 20 mg po bid - changed to 40 mg IV q 12 07/03. Increased coreg dose to 25 mg bid- 07/03 - get 2dEcho -20%- per patient a year ago was 30% - will not start ANGELA/ARB with recent YOLY and hyperkalemia - Cardiology consult- ? AICD candidate - d/w patient - AICD - at one point this was planned for him apparently in [place], [place]- but due to no insurance was not done C. difficile - improved -Continue po Vancomycin 125 mg PO qid x 2 weeks for C diff till 07/15 -d/w dr. Mosley - + loose stools now from Kayexalate therapy Acute Anemia on chronic, Blood loss anemia likely due to post op blood loss and moderate wound vac drainage -held heparin due to bleeding -S/P PRBC transfusion x 6 total since admission -Last blood transfusion, June 24. HH stable, hemoglobin 9.3, hematocrit 26.7. Acute kidney injury Recent Renal Pathology at [facility]: Impression: diffuse and nodular diabetic glomerulosclerosis, moderately advanced and moderate arteriosclerosis and hyalinosis arteriosclerosis -Strict I's and O's. -Monitor electrolytes and creatinine level on IV diuretics HYperkalemia- persistent - continue on IV Lasix bid 40 mg IV q 12 - received Kayexalate 30 gm 07/03. 07/04 - KCL supplements was DC 07/03 - received 1 am HC03 07/04 - start Sodium HC03 650 mg po bid - give another kayexalate 0 gm po x 1 now - Nephrology consult - sinus on telemetry, get EKG- no peaked T waves, SR - not on ANGELA or ARB Diabetes mellitus Type 2 -blood glucose fair controlled - diabetic diet -Insulin sliding scale DVT:Teds SCDs GI prophylaxis:-Pepcid 3 pm ADD- repeat K level back 6.2 - give kayexalate 30 gm x 1 now - Sodium Bicarbonate 1 am IV x 1 - instruct nurse to give IV Lasix early - recheck in am (3) CHF (congestive heart failure) Qualifiers: Heart failure type: unspecified Heart failure chronicity: acute on chronic Qualified Code(s): I50.9 - Heart failure, unspecified (5) Sepsis Qualifiers: Sepsis type: sepsis due to unspecified organism Qualified Code(s): A41.9 - Sepsis, unspecified organism
[2018-07-05 08:49] LABS: Total Protein 6.1 g/dL (6.4-8.2)
[2018-07-05] MEDS ORDERED: Sodium Polystyrene Sulfonate/Sorbitol Liq 15 GM/60 ML UDC PO ONE (10:00)
[2018-07-05] MEDS: Senna/Docusate Sodium 8.6/50 MG Tablet PO SCH ×2 (10:31→20:48)
[2018-07-05] MEDS: Carvedilol 12.5 MG Tablet PO SCH (10:31)
[2018-07-05] MEDS: Sodium Chloride 0.9% 2 ML Flush BID IV.FLUSH SCH ×2 (10:32→20:48)
[2018-07-05] MEDS: Famotidine 20 MG Tablet PO SCH ×2 (10:32→20:48)
[2018-07-05] MEDS: Calcium Carbonate 500 MG Tablet PO SCH ×2 (10:32→20:48)
[2018-07-05] MEDS: Insulin NovoLOG Aspart Correctional Sugar Inj SQ SCH ×3 (10:33→18:17)
[2018-07-05] MEDS: Collagenase Oint 30 GM Tube TOPICAL SCH ×2 (10:34)
--- NOTE | 2018-07-05 17:38 | ECG ---
Date Performed: 07/05/2018 Time Performed: 12:29:20 PTAGE: 53 years EKG: Sinus rhythm LOW QRS VOLTAGE IN EXTREMITY LEADS Dealyed R-wave transition ABNORMAL ECG PREVIOUS TRACING : 06/09/2018 08.23 Compared to previous tracing,patient has QS in lead V2, whi ch is probably from lead placement but a septal infarct cannot be excluded. Lead V6 cannot be compare d to the prior tracing as it is not previously recorded so i can't tell if the lateral T-wave changes are new. Clinical correlation is recommended DOCTOR: Rosa Rose Interpretating Date/Time 07/05/2018 17:36:33
--- NOTE | 2018-07-05 17:54 | P.CONNP ---
<Apryl Damon - Last Filed: 07/05/18 17:07> History of Present Illness Service: Nephrology Consult date: 07/05/18 Requesting Physician: Radha Vail Reason for Consult: Persistent hyperkalemia Primary Care Provider: No Primary Care Physician History of Present Illness: Patient is a 53 year old male with a past medical history of Congestive heart failure, diabetes, hyperlipidemia, and edema. Initially presented to the emergency room on the 06/02 with CHF exacerbation, shortness of breath, lower extremity edema, weeping extremities. Has undergone a right lower extremity BKA. Nephrology is consulted for persistent hyperkalemia with a potassium level of 6.1 today. Has been treated. Potassium level has trended elevated since 07/03. Creatinine at 1.90 and decreased urinary output. Indwelling Walters catheter has been placed. Patient reports that he has had a past medical history of acute kidney injury with a kidney biopsy done in the past. Reports shortness of breath on exertion, denies any nausea, vomiting or abdominal pain. Reports loose stools has received Kayexalate. [facility] - History History Provided By: Patient - Medical History Medical History: Medical History (Last Reviewed 07/05/18 @ 09:56 by Mirlande Carrion) Congestive heart failure Edema Type 2 diabetes mellitus - Surgical History Surgical History: Surgical History (Last Reviewed 07/05/18 @ 09:56 by Mirlande Carrion) Hx of cholecystectomy - Family History Family History: Family History (Last Reviewed 07/05/18 @ 09:56 by Mirlande Carrion) Other Family history unobtainable due to patient's condition - Tobacco History Second Hand Smoke Exposure: No Tobacco Use In Past 30 Days: No Smoking Status: Former smoker Tobacco Type: Cigarettes - Alcohol History How Often Do You Have a Drink Containing Alcohol: Monthly or less - Substance Use History Substance History: No History of Abuse - Travel History Recent Travel in the [place] Within the Last 8 Weeks: No Recent Travel Out of the Country Within the Last 8 Weeks: No - Immunization History Tetanus Immunization: Unsure Hx Influenza Vaccine This Season: No Medications and Allergies Allergies Allergy/AdvReac Type Severity Reaction Status Date / Time No Known Allergies Allergy Unverified 06/02/18 15:19 Home Medications Medication Instructions Recorded Confirmed Type aspirin 81 mg PO DAILY 06/02/18 06/02/18 History atorvastatin [Lipitor] 40 mg PO DAILY 06/02/18 06/02/18 History bumetanide 2 mg PO DAILY 06/02/18 06/02/18 History carvedilol [Coreg] 25 mg PO BID 06/02/18 06/02/18 History chlorthalidone 25 mg PO DAILY 06/02/18 06/02/18 History folic acid 1 mg PO DAILY 06/02/18 06/02/18 History lisinopril 5 mg PO DAILY 06/02/18 06/02/18 History Active Medications: Active Medications Acetaminophen (Tylenol) 650 mg PO Q4H PRN PRN Reason: Temp > 100.4 Acetaminophen (Tylenol) 650 mg PO Q4H PRN PRN Reason: SEE LABEL COMMENTS Last Admin: 06/24/18 19:21 Dose: 650 mg Hydrocodone Bitart/Acetaminophen ([place] 7.5/325) 1 tab PO Q4H PRN PRN Reason: PAIN SCALE 6 TO 10 Last Admin: 07/05/18 11:52 Dose: 1 tab Al Hydroxide/Mg Hydroxide (Milk Of GreenFuelizzy Liq) 30 ml PO Q12H PRN PRN Reason: Mild Constipation Albuterol (Duoneb Neb (Prn)) 1 ampul NEB Q4HR NEB PRN PRN Reason: sob Last Admin: 07/05/18 09:50 Dose: 1 ampul Bisacodyl (Dulcolax Supp) 10 mg RECTAL DAILY PRN PRN Reason: SEVERE CONSITIPATION Calcium Carbonate (Oscal) 500 mg PO BID [facility] Last Admin: 07/05/18 10:32 Dose: 500 mg Carvedilol (Coreg) 25 mg PO BID [facility] Last Admin: 07/05/18 10:31 Dose: 25 mg Collagenase (Santyl Oint) 1 applicatio TOPICAL DAILY [facility] Last Admin: 07/05/18 10:34 Dose: 1 applicatio Collagenase (Santyl Oint) 1 applicatio TOPICAL DAILY [facility] Last Admin: 07/05/18 10:34 Dose: 1 applicatio Dextrose (D50w Vial) 50 ml IV.PUSH UNSCH PRN PRN Reason: PER HYPOGLYCEMIA PROTOCOL Diphenhydramine HCl (Benadryl) 25 mg PO Q4H PRN PRN Reason: SEE LABEL COMMENTS Last Admin: 06/24/18 19:22 Dose: 25 mg Famotidine (Pepcid) 20 mg PO BID [facility] Last Admin: 07/05/18 10:32 Dose: 20 mg Furosemide (Lasix Inj) 40 mg IV.PUSH BID@0900,1800 [facility] Last Admin: 07/05/18 10:32 Dose: 40 mg Glucagon (Glucagon Inj) 1 mg OTHER UNSCH PRN PRN Reason: for Hypoglycemia Protocol Insulin Aspart (Novolog Insulin Correctional Sugar Inj) 0 unit SQ ACHS [facility]; Protocol Last Admin: 07/05/18 12:52 Dose: Not Given Lactulose (Lactulose Liq) 30 ml PO DAILY PRN PRN Reason: SEVERE CONSITIPATION Senna/Docusate Sodium (Bee-Colace) 1 tab PO BID [facility] Last Admin: 07/05/18 10:31 Dose: Not Given Sennosides (Senokot) 17.2 mg PO Q12H PRN PRN Reason: Moderate Constipation Sodium Bicarbonate (Sodium Bicarbonate) 650 mg PO BID [facility] Sodium Chloride (Ns Flush) 2 ml IV.FLUSH BID [facility] Last Admin: 07/05/18 10:32 Dose: 2 ml Sodium Chloride (Ns Flush) 2 ml IV.FLUSH PRN PRN PRN Reason: FLUSH AFTER USING IV ACCESS Last Admin: 07/01/18 08:25 Dose: 2 ml Terbutaline Sulfate (Brethine Inj) 1 mg SQ UNSCH PRN PRN Reason: For Extravasation Vancomycin HCl (Vancomycin Po) 125 mg PO QID [facility] Stop: 07/15/18 12:59 Last Admin: 07/05/18 12:51 Dose: 125 mg Exam Vital signs: Vital Signs 07/04/18 19:37 07/04/18 20:00 07/05/18 00:00 Temperature 97.1 F L 97.8 F Pulse Rate 77 72 Respiratory Rate 19 18 18 Blood Pressure 112/86 99/75 L Pulse Oximetry 100 99 07/05/18 02:30 07/05/18 03:45 07/05/18 04:00 Temperature 97.2 F L Pulse Rate 70 Respiratory Rate 19 18 Blood Pressure 100/80 Pulse Oximetry 100 98 07/05/18 08:00 07/05/18 09:53 07/05/18 09:54 Temperature Pulse Rate 69 72 Respiratory Rate 18 14 Blood Pressure 102/81 Pulse Oximetry 99 99 07/05/18 12:00 Temperature 95.7 F L Pulse Rate 71 Respiratory Rate 16 Blood Pressure 101/79 Pulse Oximetry 100 Intake & Output 07/04/18 07/05/18 07/05/18 18:59 06:59 18:59 Intake Total 442 / 442 Output Total 50 / 50 Balance 392 / 392 Intake: Oral 442 / 442 Output: Urine 50 / 50 Other: # Voids 1 # Incontinent Voids 4 Date of Last Bowel Movement 07/04/18 07/05/18 07/05/18 # Bowel Movements 3 # Incontinent Bowel Movements 3 Narrative: GENERAL: Alert and oriented X 3 SKIN: Warm and dry. NECK: Supple, trachea midline. No JVD or lymphadenopathy. CARDIOVASCULAR: Regular rate and rhythm without murmurs, gallops, or rubs. RESPIRATORY: Breath sounds diminished bilaterally. No accessory muscle use. GASTROINTESTINAL: Abdomen soft, non-tender, nondistended. MUSCULOSKELETAL: No cyanosis, dependent edema through legs to abdomen. Right lower extremity ANGELA/BKA BACK: Nontender without obvious deformity. No CVA tenderness. Results - Lab Results 07/03/18 14:35 07/05/18 06:13 Most recent lab results ABG pH 7.35 (7.380-7.420) L 06/02/18 21:00 ABG pCO2 33 mmHg (38-42) L 06/02/18 21:00 ABG pO2 152 mmHg (61-120) H 06/02/18 21:00 ABG HCO3 18 mmol/L (22-26) L 06/02/18 21:00 Calcium 7.4 mg/dL (8.5-10.1) L* 07/05/18 06:13 Phosphorus 2.9 mg/dL (2.5-4.9) 06/29/18 08:06 Magnesium 1.7 mg/dL (1.5-2.5) 06/29/18 08:06 Assessment and Plan - Assessment (1) Hyperkalemia Code(s): E87.5 - Hyperkalemia Status: Acute (2) CHF (congestive heart failure) Code(s): I50.9 - Heart failure, unspecified Status: Acute (3) YOLY (acute kidney injury) Code(s): N17.9 - Acute kidney failure, unspecified Status: Acute (4) Status post below knee amputation Code(s): Z89.519 - Acquired absence of unspecified leg below knee Status: Acute - Plan Acute kidney injury with creatinine of 1.90 and hyperkalemia of 6.1. YOLY possibly related to CHF and third spacing. Hyperkalemia treated could be related to worsening kidney function or possibly related to beta han. Will order renal ultrasound Indwelling Walters catheter placed maintain strict I+O Significant edema continue Lasix 40mg BID, will add albumin Will reduce Coreg to 12.5 BID, SBP at 100's Low potassium diet added Urinalysis, urine osmolarity, potassium ,and sodium ordered Will follow electrolytes and BMP closely. <Josr Cheema - Last Filed: 07/07/18 19:32> History of Present Illness Primary Care Provider: No Primary Care Physician [facility] - Medical History Medical History: Medical History (Last Reviewed 07/05/18 @ 09:56 by Mirlande Carrion) Congestive heart failure Edema Type 2 diabetes mellitus - Surgical History Surgical History: Surgical History (Last Reviewed 07/05/18 @ 09:56 by Mirlande Carrion) Hx of cholecystectomy - Family History Family History: Family History (Last Reviewed 07/05/18 @ 09:56 by Mirlande Carrion) Other Family history unobtainable due to patient's condition Medications and Allergies Active Medications: Active Medications Acetaminophen (Tylenol) 650 mg PO Q4H PRN PRN Reason: Temp > 100.4 Acetaminophen (Tylenol) 650 mg PO Q4H PRN PRN Reason: SEE LABEL COMMENTS Last Admin: 06/24/18 19:21 Dose: 650 mg Hydrocodone Bitart/Acetaminophen ([place] 7.5/325) 1 tab PO Q4H PRN PRN Reason: PAIN SCALE 6 TO 10 Last Admin: 07/06/18 17:57 Dose: 1 tab Al Hydroxide/Mg Hydroxide (Milk Of Magnesia Liq) 30 ml PO Q12H PRN PRN Reason: Mild Constipation Albuterol (Duoneb Neb (Prn)) 1 ampul NEB Q4HR NEB PRN PRN Reason: sob Last Admin: 07/05/18 09:50 Dose: 1 ampul Bisacodyl (Dulcolax Supp) 10 mg RECTAL DAILY PRN PRN Reason: SEVERE CONSITIPATION Calcium Acetate (Phoslo) 1,334 mg PO TID [facility] Last Admin: 07/07/18 18:15 Dose: 1,334 mg Calcium Carbonate (Oscal) 500 mg PO BID [facility] Last Admin: 07/07/18 10:57 Dose: 500 mg Carvedilol (Coreg) 12.5 mg PO BID [facility] Last Admin: 07/07/18 08:59 Dose: Not Given Collagenase (Santyl Oint) 1 applicatio TOPICAL DAILY [facility] Last Admin: 07/07/18 10:59 Dose: 1 applicatio Collagenase (Santyl Oint) 1 applicatio TOPICAL DAILY [facility] Last Admin: 07/07/18 10:59 Dose: 1 applicatio Dextrose (D50w Vial) 50 ml IV.PUSH UNSCH PRN PRN Reason: PER HYPOGLYCEMIA PROTOCOL Last Admin: 07/07/18 16:12 Dose: 50 ml Diphenhydramine HCl (Benadryl) 25 mg PO Q4H PRN PRN Reason: SEE LABEL COMMENTS Last Admin: 06/24/18 19:22 Dose: 25 mg Famotidine (Pepcid) 20 mg PO BID [facility] Glucagon (Glucagon Inj) 1 mg OTHER UNSCH PRN PRN Reason: for Hypoglycemia Protocol Albumin Human (Buminate 5% Inj) 250 mls @ 250 mls/hr IV.SIG Q12H [facility] Last Admin: 07/07/18 08:59 Dose: Not Given Albumin Human (Alburx 5% Inj) 500 mls @ 250 mls/hr IV.SIG Q6H [facility] Stop: 07/07/18 19:44 Last Infusion: 07/07/18 18:30 Dose: Infused Sodium Chloride (Ns Inj) 1,000 mls @ 0 mls/hr IV.SIG BOLUS [facility] Stop: 07/08/18 23:31 Last Infusion: 07/07/18 03:00 Dose: Infused Midazolam HCl (Versed Inj) 50 mg in 50 mls @ 2 mls/hr IV.CONT TITRATE PRN; Protocol PRN Reason: Per Protocol Last Admin: 07/07/18 19:07 Dose: 2 mg/hr, 2 mls/hr Fentanyl (Fentanyl 10 Mcg/Ml Premix Drip) 2,500 mcg in 250 mls @ 5 mls/hr IV.SIG TITRATE PRN; Protocol PRN Reason: Per Protocol Last Admin: 07/07/18 02:00 Dose: 50 mcg/hr, 5 mls/hr Sodium Bicarbonate 150 meq/ (Sterile Water) 1,000 mls @ 150 mls/hr IV.CONT .Q6H40M [facility] Last Admin: 07/07/18 16:36 Dose: 150 mls/hr Bumetanide (Bumex Inj) 25 mg in 100 mls @ 2 mls/hr IV.CONT .Q24H [facility] Last Admin: 07/07/18 18:53 Dose: 0.5 mg/hr, 2 mls/hr Insulin Aspart (Novolog Insulin Correctional Sugar Inj) 0 unit SQ ACHS [facility]; Protocol Last Admin: 07/07/18 16:25 Dose: Not Given Lactulose (Lactulose Liq) 30 ml PO DAILY PRN PRN Reason: SEVERE CONSITIPATION Senna/Docusate Sodium (Bee-Colace) 1 tab PO BID [facility] Last Admin: 07/07/18 10:58 Dose: 1 tab Sennosides (Senokot) 17.2 mg PO Q12H PRN PRN Reason: Moderate Constipation Sodium Bicarbonate (Sodium Bicarbonate) 650 mg PO BID [facility] Last Admin: 07/07/18 10:59 Dose: 650 mg Sodium Chloride (Ns Flush) 2 ml IV.FLUSH BID [facility] Last Admin: 07/07/18 10:57 Dose: 2 ml Sodium Chloride (Ns Flush) 2 ml IV.FLUSH PRN PRN PRN Reason: FLUSH AFTER USING IV ACCESS Last Admin: 07/01/18 08:25 Dose: 2 ml Terbutaline Sulfate (Brethine Inj) 1 mg SQ UNSCH PRN PRN Reason: For Extravasation Vancomycin HCl (Vancomycin Po) 125 mg PO QID [facility] Stop: 07/15/18 12:59 Last Admin: 07/07/18 18:17 Dose: 125 mg Exam Vital signs: Vital Signs 07/06/18 20:00 07/06/18 23:20 07/07/18 00:00 Temperature 98.7 F 91.1 F L Pulse Rate 62 74 Respiratory Rate 17 18 20 Blood Pressure 114/64 139/106 H Pulse Oximetry 94 L 100 100 07/07/18 00:11 07/07/18 00:16 07/07/18 00:21 Temperature Pulse Rate 72 70 69 Respiratory Rate 14 18 18 Blood Pressure 126/103 H 129/98 H 114/87 Pulse Oximetry 100 100 100 07/07/18 00:26 07/07/18 00:31 07/07/18 00:36 Temperature Pulse Rate 68 69 69 Respiratory Rate 24 20 23 Blood Pressure 117/89 121/91 H 130/76 Pulse Oximetry 100 100 100 07/07/18 00:41 07/07/18 00:46 07/07/18 00:51 Temperature Pulse Rate 69 68 68 Respiratory Rate 16 21 17 Blood Pressure 121/89 105/84 130/92 H Pulse Oximetry 100 100 99 07/07/18 00:56 07/07/18 01:00 07/07/18 01:01 Temperature Pulse Rate 70 69 69 Respiratory Rate 18 17 18 Blood Pressure 125/91 H 117/89 Pulse Oximetry 100 100 100 07/07/18 01:09 07/07/18 01:11 07/07/18 01:16 Temperature Pulse Rate 68 Respiratory Rate 18 Blood Pressure 110/84 109/82 Pulse Oximetry 07/07/18 01:21 07/07/18 02:00 07/07/18 03:00 Temperature Pulse Rate 65 61 56 L Respiratory Rate 17 27 H Blood Pressure 105/83 Pulse Oximetry 100 100 100 07/07/18 03:58 07/07/18 04:00 07/07/18 05:00 Temperature 93.3 F L Pulse Rate 57 L 59 L Respiratory Rate 18 18 18 Blood Pressure Pulse Oximetry 100 100 100 07/07/18 06:00 07/07/18 07:00 07/07/18 08:00 Temperature 95.4 F L Pulse Rate 62 68 68 Respiratory Rate 18 18 12 Blood Pressure Pulse Oximetry 100 100 100 07/07/18 09:00 07/07/18 10:00 07/07/18 10:20 Temperature 95.9 F L 96.6 F L Pulse Rate 68 69 Respiratory Rate 18 18 18 Blood Pressure Pulse Oximetry 100 95 91 L 07/07/18 11:00 07/07/18 11:37 07/07/18 11:41 Temperature 97.3 F L 97.9 F 97.7 F Pulse Rate 70 58 L 73 Respiratory Rate 14 19 26 H Blood Pressure 46/30 L 64/44 L Pulse Oximetry 99 98 96 07/07/18 11:54 07/07/18 12:00 07/07/18 13:00 Temperature 97.9 F 97.9 F 97.9 F Pulse Rate 71 72 70 Respiratory Rate 13 13 14 Blood Pressure 85/51 L 79/51 L Pulse Oximetry 100 98 100 07/07/18 14:00 07/07/18 15:00 07/07/18 16:00 Temperature 98.2 F 98.8 F 99.3 F Pulse Rate 72 70 71 Respiratory Rate 12 12 12 Blood Pressure Pulse Oximetry 100 100 100 07/07/18 17:28 07/07/18 18:00 Temperature Pulse Rate 72 Respiratory Rate 12 Blood Pressure Pulse Oximetry 100 Intake & Output 07/07/18 07/07/18 07/08/18 06:59 18:59 06:59 Intake Total 3750 / 3750 3500 / 3500 50 / 50 Output Total 3350 / 3350 675 / 675 Balance 400 / 400 2825 / 2825 50 / 50 Weight 99.4 kg Intake: IV 3750 / 3750 3500 / 3500 50 / 50 Versed Inj 50 mg In 50 ml @ 2 50 / 50 MG/HR 2 mls/hr IV.CONT TITRATE PRN Rx#:[id number] Sodium Bicarbonate 8.4% Inj 150 2000 / 2000 MEQ In Sterile Water for Inj 850 ML @ 150 mls/hr IV.CONT . Q6H40M [facility] Rx#:[id number] Buminate 5% Inj 250 ML @ 250 250 / 250 mls/hr IV.SIG Q12H [facility] Rx#: [id number] Alburx 5% Inj 500 ML @ 250 mls/ 500 / 500 1500 / 1500 hr IV.SIG Q6H [facility] Rx#:[id number] NS Inj 1,000 ML @ Wide Open IV. 3000 / 3000 SIG BOLUS [facility] Rx#:[id number] Output: Stool 0 / 0 Urine Amount (Catheter) 100 / 100 200 / 200 Indwelling Urethral Catheter 100 / 100 200 / 200 Gastric Drainage 75 / 75 Orogastric Tube 75 / 75 Chest Tube Drainage 3250 / 3250 400 / 400 Right 3250 / 3250 400 / 400 Other: Mode Setting R BKA stump Continuous Date of Last Bowel Movement 07/06/18 07/06/18 Results - Lab Results 07/07/18 00:30 07/07/18 11:30 Most recent lab results ABG pH 7.43 (7.380-7.420) H 07/07/18 12:19 ABG pCO2 42 mmHg (38-42) 07/07/18 12:19 ABG pO2 90 mmHg (61-120) 07/07/18 12:19 ABG HCO3 27 mmol/L (22-26) H 07/07/18 12:19 Calcium 6.1 mg/dL (8.5-10.1) L* 07/07/18 11:30 Phosphorus 7.2 mg/dL (2.5-4.9) H D 07/07/18 11:30 Magnesium 2.1 mg/dL (1.5-2.5) 07/07/18 11:30 Assessment and Plan - Assessment (1) Hyperkalemia Code(s): E87.5 - Hyperkalemia Status: Acute (2) CHF (congestive heart failure) Code(s): I50.9 - Heart failure, unspecified Status: Acute (3) YOLY (acute kidney injury) Code(s): N17.9 - Acute kidney failure, unspecified Status: Acute (4) Status post below knee amputation Code(s): Z89.519 - Acquired absence of unspecified leg below knee Status: Acute - Plan Patient seen and examine, agree with above. Has YOLY and Hyperkalemia. Has fluid overload, continue Lasix and IV Albumin. Follow the urine out put and BMP. <Apryl Damon - Last Filed: 07/05/18 17:07> (2) CHF (congestive heart failure) Qualifiers: Heart failure type: unspecified Heart failure chronicity: acute on chronic Qualified Code(s): I50.9 - Heart failure, unspecified <Josr Cheema - Last Filed: 07/07/18 19:32> (2) CHF (congestive heart failure) Qualifiers: Heart failure type: unspecified Heart failure chronicity: acute on chronic Qualified Code(s): I50.9 - Heart failure, unspecified
[2018-07-05] MEDS: Sodium Bicarbonate 650 MG Tablet PO SCH ×2 (18:17→20:48)
--- NOTE | 2018-07-05 22:14 | US ---
EXAM DATE: 07/05/2018 12:00 AM EDT AGE/SEX: 53 years / Male INDICATIONS: Increased BUN/Creatnine. CLINICAL DATA: This is the patient's initial encounter. Patient reports that signs and symptoms have been present for 2 days and indicates a pain score of 3/10. MEDICAL/SURGICAL HISTORY: Congestive heart failure. Edema. Diabetes. Cholecystectomy. COMPARISON: No prior exams available for comparison. MEASUREMENTS: Right Kidney:__12.2 x 7.1 x 7.0 cm Left Kidney:__11.6 x 7.4 x 6.3 cm FINDINGS: Right Kidney: Increased cortical echogenicity with multiple nonobstructing renal calculi, the largest in the medial midpole measuring approximately 5 mm. No hydronephrosis or suspicious mass lesion Left Kidney: Increased cortical echogenicity with multiple cortical cysts. Largest in the lower pole measures 1.4 x 1.7 x 1.2 cm within upper pole cyst measuring 1.1 x 1.0 x 1.1 cm. Just lateral to the kidney is a somewhat heterogeneous, 6.7 x 4.0 x 3.8 cm predominantly hypoechoic lesion with internal vascularity that does not appear to be associated with the kidney itself. Bladder: Walters catheter is present. Bladder decompressed. Other: None. CONCLUSION: 1. Increased cortical echogenicity in both kidneys suggesting medical renal disease 2. Multiple nonobstructing calculi in the collecting system of the right kidney. The largest in the midpole measures 5 mm. 3. There appear to be 2 renal cortical cyst in the left kidney, one in the upper pole and the larger , 1.7 cm lesion in the lower pole. 4. Lateral to the left kidney, there is a hypoechoic but heterogeneous 6.7 x 4.0 x 3.8 cm lesion whi ch appears to be discrete from the kidney itself. This area contains internal vascularity and is conc erning for a possible mass lesion. CT scan of the abdomen with IV and oral contrast is recommended fo r further characterization. 5. Urinary bladder is decompressed with a Walters catheter. Electronically signed by: Tahir Goetz MD 07/05/2018 10:13 PM EDT
[2018-07-06] MEDS: Carvedilol 12.5 MG Tablet PO SCH ×3 (00:46→21:43)
[2018-07-06] MEDS: Insulin NovoLOG Aspart Correctional Sugar Inj SQ SCH ×4 (00:46→19:30)
[2018-07-06] MEDS: Albumin Human 5% Inj 250 ML IV.SIG SCH ×3 (01:42→21:42)
--- NOTE | 2018-07-06 09:28 | P.PN ---
Subjective Interval history: awake and alert but episodes of restlesss last evening denies any shortness of breath- slightly tachypnea pulled out his cevallos early this am- BS then was 106 ff blood sugar- now 58- awake cooperative- apologized to staff for pulling out the cevallos Physical Exam Vital signs: Vital Signs 07/05/18 09:53 07/05/18 09:54 07/05/18 12:00 Temperature 95.7 F L Pulse Rate 72 77 Respiratory Rate 14 16 Blood Pressure 101/79 Pulse Oximetry 99 100 07/05/18 16:00 07/05/18 20:00 07/06/18 00:00 Temperature 94.3 F L 98.1 F 97.6 F Pulse Rate 73 74 74 Respiratory Rate 16 15 19 Blood Pressure 108/78 106/82 95/71 L Pulse Oximetry 100 100 95 07/06/18 03:58 07/06/18 08:00 Temperature 97.8 F 97.9 F Pulse Rate 74 62 Respiratory Rate 19 18 Blood Pressure 101/66 120/80 Pulse Oximetry 97 100 Intake & Output 07/05/18 07/06/18 07/06/18 18:59 06:59 18:59 Intake Total 460 / 460 510 / 510 Output Total 125 / 125 250 / 250 Balance 335 / 335 260 / 260 Weight 88.2 kg Intake: IV 250 / 250 Buminate 5% Inj 250 ML @ 250 250 / 250 mls/hr IV.SIG Q12H [facility] Rx#: [id number] Oral 460 / 460 260 / 260 Output: Urine 125 / 125 Urine Amount (Catheter) 250 / 250 Indwelling Urethral Catheter 250 / 250 Other: # Incontinent Voids 1 Date of Last Bowel Movement 07/05/18 07/05/18 # Bowel Movements 1 # Incontinent Bowel Movements 3 Narrative: GENERAL: alert and oriented x3, SKIN: Warm and dry. Right BKA - stump no infection HEAD: Atraumatic. Normocephalic. EYES: Pupils equal and round. No scleral icterus. No injection or drainage. ENT: No nasal bleeding or discharge. Mucous membranes pink and moist. NECK: Trachea midline. CARDIOVASCULAR: Regular rate and rhythm. RESPIRATORY: decreased breath sounds bases extremities + edema, right BKA- sutures intact, no erythema left heel ulcer - GASTROINTESTINAL: Abdomen soft, non-tender, NEUROLOGICAL: Awake, alert oriented x3. speech clear but appears confused cevallos in place + penile edema - Urinary Catheter Management Indwelling Urethral Catheter Cath placed during this visit: yes, but has since been removed by the nurse Urethral indwelling: Yes Reason for continuing: Hourly intake/output Insertion date: 07/05/18 Insertion time: 13:59 Removal date: 07/06/18 Removal time: 14:57 Results - Labs CBC & Chem 7: 07/07/18 00:30 07/07/18 03:10 Laboratory Results - last 24 hr 07/06/18 07/06/18 07/06/18 00:00 00:00 07:57 POC Glucose 52 L Urine Osmolality 365 Ur Random Sodium 51 Ur Random Potassium 47 - Imaging Impressions Abdomen/Bladder Ultrasound 07/05/18 00:00 CONCLUSION: 1. Increased cortical echogenicity in both kidneys suggesting medical renal disease 2. Multiple nonobstructing calculi in the collecting system of the right kidney. The largest in the midpole measures 5 mm. 3. There appear to be 2 renal cortical cyst in the left kidney, one in the upper pole and the larger, 1.7 cm lesion in the lower pole. 4. Lateral to the left kidney, there is a hypoechoic but heterogeneous 6.7 x 4.0 x 3.8 cm lesion which appears to be discrete from the kidney itself. This area contains internal vascularity and is concerning for a possible mass lesion. CT scan of the abdomen with IV and oral contrast is recommended for further characterization. 5. Urinary bladder is decompressed with a Cevallos catheter. - Procedures DATE OF OPERATION: 06/24/2018 PREOPERATIVE DIAGNOSIS: Gangrene of the right leg, status post right below-knee guillotine amputation, revision amputation and irrigation with wound VACs. POSTOPERATIVE DIAGNOSIS: Gangrene of the right leg, status post right below-knee guillotine amputation, revision amputation and irrigation with wound VACs. PROCEDURE PERFORMED: Second revision of the amputation and final closure of the posterior flap. SURGEON: Daniel Dexter MD. ANESTHESIA: General. ESTIMATED BLOOD LOSS: 50 mL. DESCRIPTION OF PROCEDURE: The patient was prepped and draped in usual fashion. The wound VAC was removed. The wound was not examined. Posterior flap had been created last time, but could not be closed due to persistent purulent infection. At this point, there is no sign of infection. The entire flap was washed out with pulsatile lavage aggressively, going all the way up behind the medial gastrocnemius and the whole area. This was done with about 3 liters of saline. Once this was completed, flap was re-tailored. First of all, another 1-1/2 inch of tibia was resected using the oscillating saw by the intrafibula. Meticulous hemostasis assured. The bone was rasped down and then a posterior flap was addressed. At this point, edematous, thickened, and clearly cannot be closed, therefore, some of the muscle was now shaved off with an amputation knife, and meticulous hemostasis obtained. This allowed for flexing the flap forward and closure. The flap was now sutured with 0 Vicryl deep layer of fascia at the fascia, and skin was closed with 2-0 Prolene. Dressing applied. The patient tolerated the procedure well. MD RACHID Marin/mahin , 01:07 PM Assessment and Plan - Assessment (1) Status post below knee amputation Code(s): Z89.519 - Acquired absence of unspecified leg below knee Status: Acute (2) Gas gangrene Code(s): A48.0 - Gas gangrene Status: Acute (3) CHF (congestive heart failure) Code(s): I50.9 - Heart failure, unspecified Status: Acute (4) YOLY (acute kidney injury) Code(s): N17.9 - Acute kidney failure, unspecified Status: Acute (5) Sepsis Code(s): A41.9 - Sepsis, unspecified organism Status: Acute - Plan 53-year-old male admitted with acute septic shock, respiratory failure status post extubation and BKA. Patient has been receiving ICU care and stabilized for transfer to the hospitalist service in the medical surgical floor. Septic shock/leukocytosis/respiratory failure with intubation s/p right BKA/Gas Gangrene of the right foot 06/03/18 Status post higher BKA and flap 06/17/18 -Broad-spectrum antibiotic with vancomycin and Zosyn, -ID Consulted, Multiple blood cultures with E. coli, wound culture with E. coli , gram-negative ankur, MRSA on 06/02/18 -Status post I&D and debridement, status post BKA by Dr. Quiles 06/03/18 and higher BKA on 06/17/18 -Continue [place] and morphine IV as needed for breakthrough pain. -s/p Higher BKA 06/17/18-Vascular surgery, plan for stump closure for at least another week or more we will continue wound VAC for now -Right BKA stump with wound vac improved suction and drainage, wound care for wound VAC maintenance, assessment of dressing, discussed with nursing -Wound/leg culture no growth in 72 hours on 06/17/18, fungal culture negative , mycobacterial culture negative -s/p revision of amputation, final closure of post. flap. Wound vac removed - S/P course of Van and zosyn Cardiomyopathy -CHF/generalized edema-EF 20%- -CXray with Bilateral effusion -on Lasix 20 mg po bid - changed to 40 mg IV q 12 07/03. coreg 12.5 mg bid- increase as BP tolerates -2dEcho -20%- per patient a year ago was 30% - will not start ANGELA/ARB with recent YOLY and hyperkalemia - Cardiology consulted and ff - ? AICD candidate - d/w patient - AICD - at one point this was planned for him apparently in [place], [place]- but due to no insurance was not done C. difficile - improved -Continue po Vancomycin 125 mg PO qid x 2 weeks for C diff till 07/15 -d/w dr. Mosley - + loose stools now from Kayexalate therapy Acute Anemia on chronic, Blood loss anemia likely due to post op blood loss and moderate wound vac drainage -held heparin due to bleeding -S/P PRBC transfusion x 6 total since admission -Last blood transfusion, June 24. HH stable, hemoglobin 9.3, hematocrit 26.7. - rechck CBC this am- some oozing from incision Acute kidney injury Recent Renal Pathology at [facility]: Impression: diffuse and nodular diabetic glomerulosclerosis, moderately advanced and moderate arteriosclerosis and hyalinosis arteriosclerosis -Strict I's and O's. -Monitor electrolytes and creatinine level on IV diuretics HYperkalemia- persistent - BMP today still pending - continue on IV Lasix bid 40 mg IV q 12 - received Kayexalate 30 gm 07/03. 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 Diabetes mellitus Type 2- -blood glucose fair controlled- BS 55 - this am- d/w Priscilla- recheck in an hour - diabetic diet -Insulin sliding scale DVT:Teds SCDs GI prophylaxis:-Pepcid 3 pm ADD- repeat K level back 6.2 - give kayexalate 30 gm x 1 now - Sodium Bicarbonate 1 am IV x 1 - instruct nurse to give IV Lasix early - recheck in am (3) CHF (congestive heart failure) Qualifiers: Heart failure type: unspecified Heart failure chronicity: acute on chronic Qualified Code(s): I50.9 - Heart failure, unspecified (5) Sepsis Qualifiers: Sepsis type: sepsis due to unspecified organism Qualified Code(s): A41.9 - Sepsis, unspecified organism
--- NOTE | 2018-07-06 10:43 | P.PNVS ---
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 Wound VAC in place It should be noted that the time of surgery patient had purulent drainage from the proximal portion of the amputation so will take a few days before patient is ready for any further surgery In the best case scenario will undergo washout of the stump and closure on Thursday but depending on what it looks like I may delay the final closure for another few days after that In the meantime patient can be safely extubated and transferred to floor when stable 06/05/2018 Patient status post guillotine amputation of the right foot Considering the amount of infection gas gangrene and purulent drainage wound VAC will remain on for next few days Will likely washout the change wound VAC on Thursday and then go ahead and closed the incision probably around Thursday06/06/2018 Considering the amount of purulent drainage and degree of infection and gas gangrene I believe it is probably leonard to postpone final closure until at least Thursday Patient should have a washout of the stump at the bedside the new wound VAC placement tomorrow 06/07/2018 Wound VAC changed today Amputation site appears to be much bobbin cleaner hand Will likely closed the incision on Thursday Nothing to add at this time 06/08/2018 Patient had not had a change of wound VAC yet Wound care has been consulted but I do not know why the wound VAC was not changed Will now postpone final surgery until but wound VAC has to be changed and wound washed out today For closure of the BKA stump on Thursday06/10/2018 Patient will have serial wound vacs changed as ordered and by next the drainage and everything should be resolved to the point that patient can have closure of the BKA stump This is a unusually heavily infected purulent tissue of the calf and I do not want to close this before I am sure that is going to heal nicely and not result in a new abscess 06/11/2018 Patient stable Wound VAC changed and grateful to wound care team doing such excellent job Will likely take patient to the operating room or Thursday for hopefully a second stage procedure and closure 06/16/18 Stump appears clean, no more drainage For washout and closure tomorrow 06/17/2018 Patient taken to the operating room for washout and closure of the right BKA stump. Patient underwent amputation at the higher BKA level as planned and flap was created and the time noticed that there is more drainage from the area of the medial gastrocnemius muscle and about 100 cc of thick purulent material is extracted this area is completely opened irrigated with copious amount of saline and a new wound VAC placed At this point have no choice but to continue the wound VAC therapy before I can close this and will periodically see how patient does. Eventually we will close BK stump but in face of continued purulence he will have to be postponed for at least another week if not more 06/18/2018 Patient is status post amputation of the right leg with open stump and wound VAC Is noted during the surgery patient still had about 100 cc of isabella pus in the area of medial gastrocnemius muscle and this whole area has been opened up. Wound VAC on suction and expect a lot of drainage from this Hemoglobin 7 g/dL this morning we will transfuse 2 units PRBC Continue wound VAC changes as previously directed and hopefully by will take patient back to the operating room for another washout and hopefully closure of the stump. 06/19/2018 Wound VAC on the right BKA stump in place Hemoglobin remains stable after transfusion We will continue the wound VAC at least through this week and by the end of week I may decide to close the stump or even wait until next week for once is closed I want to minimize the chance of this getting infected 06/21/2018 Patient post 2nd stage amputation with open flap and vac. Great care by the wound care nurse Jacqueline. Will take to OR thursday or for closure of the flap 06/22/2018 Stump seems to be clean and serosanguineous drainage from the wound VAC is clearing up I do not believe that there is need to wait any longer and we can close the stump probably safely tomorrow unless I find some surprises during the surgery Tentatively patient scheduled for tomorrow for irrigation and closure of the right BKA stump 06/23/2018 Patient was scheduled for closure of the right BKA stump today however due to scheduling problems in the OR no time was available patient is rescheduled for tomorrow 06/29/2018 The BKA stump is nice clean and dry swelling has significantly decreased and there is no drainage No signs of infection I believe patient should remain on antibiotics as per infectious disease but as far as I am concerned patient can be transferred to rehab anytime Stitches to remain in for about 3 weeks and I will give instructions for the washing and wound care of the stump 06/30/2018 BKA stump is nice and dry no drainage well vascularized Providing that some sort of infection does not recur from deeper tissues or patient does not injured the stump this should heal well He can be discharged from my point any time 07/01/2018 Stump is clean and dry no signs of infection Patient can be discharged any time from my point and stitches will stay in for about 3 weeks total 07/06/2018 Stump is nice and dry healing well Stitches to remain in for about 3 weeks Patient can be discharged from my point any time Objective Vital Signs / I&O: Vital Signs 07/05/18 12:00 07/05/18 16:00 07/05/18 20:00 Temperature 95.7 F L 94.3 F L 98.1 F Pulse Rate 77 73 74 Respiratory Rate 16 16 15 Blood Pressure 101/79 108/78 106/82 Pulse Oximetry 100 100 100 07/06/18 00:00 07/06/18 03:58 07/06/18 08:00 Temperature 97.6 F 97.8 F 97.9 F Pulse Rate 74 74 62 Respiratory Rate 19 19 18 Blood Pressure 95/71 L 101/66 120/80 Pulse Oximetry 95 97 100 Intake & Output 07/05/18 07/06/18 07/06/18 18:59 06:59 18:59 Intake Total 460 / 460 510 / 510 250 / 250 Output Total 125 / 125 250 / 250 Balance 335 / 335 260 / 260 250 / 250 Weight 88.2 kg Intake: IV 250 / 250 250 / 250 Buminate 5% Inj 250 ML @ 250 250 / 250 250 / 250 mls/hr IV.SIG Q12H [facility] Rx#: [id number] Oral 460 / 460 260 / 260 Output: Urine 125 / 125 Urine Amount (Catheter) 250 / 250 Indwelling Urethral Catheter 250 / 250 Other: # Incontinent Voids 1 Date of Last Bowel Movement 07/05/18 07/05/18 # Bowel Movements 1 # Incontinent Bowel Movements 3 Laboratory Results - last 24 hr 07/06/18 07/06/18 07/06/18 00:00 00:00 07:57 POC Glucose 52 L Urine Osmolality 365 Ur Random Sodium 51 Ur Random Potassium 47 Impressions Abdomen/Bladder Ultrasound 07/05/18 00:00 CONCLUSION: 1. Increased cortical echogenicity in both kidneys suggesting medical renal disease 2. Multiple nonobstructing calculi in the collecting system of the right kidney. The largest in the midpole measures 5 mm. 3. There appear to be 2 renal cortical cyst in the left kidney, one in the upper pole and the larger, 1.7 cm lesion in the lower pole. 4. Lateral to the left kidney, there is a hypoechoic but heterogeneous 6.7 x 4.0 x 3.8 cm lesion which appears to be discrete from the kidney itself. This area contains internal vascularity and is concerning for a possible mass lesion. CT scan of the abdomen with IV and oral contrast is recommended for further characterization. 5. Urinary bladder is decompressed with a Walters catheter.
[2018-07-06] MEDS: Famotidine 20 MG Tablet PO SCH ×2 (10:58→20:03)
[2018-07-06] MEDS: Senna/Docusate Sodium 8.6/50 MG Tablet PO SCH ×2 (10:58→20:03)
[2018-07-06] MEDS: Sodium Chloride 0.9% 2 ML Flush BID IV.FLUSH SCH (10:58)
[2018-07-06] MEDS: Calcium Carbonate 500 MG Tablet PO SCH ×2 (10:58→20:02)
[2018-07-06] MEDS: Sodium Bicarbonate 650 MG Tablet PO SCH ×2 (11:02→20:02)
[2018-07-06] MEDS: Collagenase Oint 30 GM Tube TOPICAL SCH ×2 (11:02)
[2018-07-06] MEDS ORDERED: Atropine Inj 1 MG/10 ML Syringe IV.PUSH ONE (11:16)
[2018-07-06] MEDS ORDERED: Sodium Bicarbonate 8.4% Inj 50 MEQ/50 ML Syringe IV.PUSH ONE (11:16)
[2018-07-06] MEDS ORDERED: Calcium Chloride Inj 1 GM/10 ML Syringe IV.PUSH ONE (11:16)
[2018-07-06 13:56] LABS: Baso % (Auto) 0.4 % (0.0-2.0); Eos % (Auto) 0.1 % (0.0-4.0); Hematocrit 30.2 % (39.0-51.0); Hemoglobin 10.5 gm/dL (13.0-17.0); Lymph # (Auto) 1.6 th/mm3 (1.0-4.8); Lymph % (Auto) 17.6 % (9.0-44.0); Mean Corpuscular HGB Conc 34.9 % (32.0-36.0); Mean Corpuscular Hemoglobin 31.7 pg (27.0-34.0); Mean Corpuscular Volume 90.8 fL (80.0-100.0); Mean Platelet Volume 8.4 fL (7.0-11.0); Mono # (Auto) 0.5 th/mm3 (0.0-0.9); Mono % (Auto) 5.2 % (0.0-8.0); Neut % (Auto) 76.7 % (16.0-70.0); Platelet Count 168 th/mm3 (150-450); Red Blood Count 3.33 mil/mm3 (4.50-5.90); Red Cell Distribution Width 20.6 % (11.6-17.2); White Blood Count 9.2 th/mm3 (4.0-11.0)
[2018-07-06 14:15] LABS: Albumin 1.3 g/dL (3.4-5.0); Carbon Dioxide 26.3 meq/L (21.0-32.0); Phosphorus 8.1 mg/dL (2.5-4.9); Potassium 5.3 meq/L (3.5-5.1)
[2018-07-06 14:18] LABS: Calcium 6.6 mg/dL (8.5-10.1)
--- NOTE | 2018-07-06 15:59 | P.PNNP ---
Subjective Interval history: Reports shortness of breath and nausea. Creatinine has increased to 2.17 with very poor urinary output. Patient pulled indwelling catheter out yesterday. No urinary output documented last night. Indwelling replaced today with small amount of dark colored urine. <MarciebridgetteApryl leon - Last Filed: 07/06/18 15:50> Physical Exam Vital signs: Vital Signs 07/05/18 16:00 07/05/18 20:00 07/06/18 00:00 Temperature 94.3 F L 98.1 F 97.6 F Pulse Rate 73 74 74 Respiratory Rate 16 15 19 Blood Pressure 108/78 106/82 95/71 L Pulse Oximetry 100 100 95 07/06/18 03:58 07/06/18 08:00 07/06/18 12:00 Temperature 97.8 F 97.9 F 98.0 F Pulse Rate 74 62 63 Respiratory Rate 19 18 18 Blood Pressure 101/66 120/80 122/78 Pulse Oximetry 97 100 100 Intake & Output 07/05/18 07/06/18 07/06/18 18:59 06:59 18:59 Intake Total 460 / 460 510 / 510 250 / 250 Output Total 125 / 125 250 / 250 Balance 335 / 335 260 / 260 250 / 250 Weight 88.2 kg Intake: IV 250 / 250 250 / 250 Buminate 5% Inj 250 ML @ 250 250 / 250 250 / 250 mls/hr IV.SIG Q12H [facility] Rx#: [id number] Oral 460 / 460 260 / 260 Output: Urine 125 / 125 Urine Amount (Catheter) 250 / 250 Indwelling Urethral Catheter 250 / 250 Other: # Incontinent Voids 1 Date of Last Bowel Movement 07/05/18 07/05/18 # Bowel Movements 1 # Incontinent Bowel Movements 3 Narrative: GENERAL: Alert. NAD SKIN: Warm and dry. NECK: Supple, trachea midline. No JVD or lymphadenopathy. CARDIOVASCULAR: Regular rate and rhythm without murmurs, gallops, or rubs. RESPIRATORY: Breath sounds diminished bilaterally. No accessory muscle use. GASTROINTESTINAL: Abdomen soft, non-tender, nondistended. GENITOURINARY: Indwelling Walters catheter, dark colored urine. MUSCULOSKELETAL: No cyanosis, dependent edema through legs to abdomen. Right lower extremity ANGELA/BKA. right foot with angela on. BACK: Nontender without obvious deformity. No CVA tenderness. - Urinary Catheter Management Indwelling Urethral Catheter Cath placed during this visit: yes, but has since been removed by the nurse Urethral indwelling: Yes Reason for continuing: Hourly intake/output Insertion date: 07/05/18 Insertion time: 13:59 Removal date: 07/06/18 Removal time: 14:57 <Apryl Damon - Last Filed: 07/06/18 15:50> Vital signs: Vital Signs 07/06/18 20:00 07/06/18 23:20 07/07/18 00:00 Temperature 98.7 F 91.1 F L Pulse Rate 62 74 Respiratory Rate 17 18 20 Blood Pressure 114/64 139/106 H Pulse Oximetry 94 L 100 100 07/07/18 00:11 07/07/18 00:16 07/07/18 00:21 Temperature Pulse Rate 72 70 69 Respiratory Rate 14 18 18 Blood Pressure 126/103 H 129/98 H 114/87 Pulse Oximetry 100 100 100 07/07/18 00:26 07/07/18 00:31 07/07/18 00:36 Temperature Pulse Rate 68 69 69 Respiratory Rate 24 20 23 Blood Pressure 117/89 121/91 H 130/76 Pulse Oximetry 100 100 100 07/07/18 00:41 07/07/18 00:46 07/07/18 00:51 Temperature Pulse Rate 69 68 68 Respiratory Rate 16 21 17 Blood Pressure 121/89 105/84 130/92 H Pulse Oximetry 100 100 99 07/07/18 00:56 07/07/18 01:00 07/07/18 01:01 Temperature Pulse Rate 70 69 69 Respiratory Rate 18 17 18 Blood Pressure 125/91 H 117/89 Pulse Oximetry 100 100 100 07/07/18 01:09 07/07/18 01:11 07/07/18 01:16 Temperature Pulse Rate 68 Respiratory Rate 18 Blood Pressure 110/84 109/82 Pulse Oximetry 07/07/18 01:21 07/07/18 02:00 07/07/18 03:00 Temperature Pulse Rate 65 61 56 L Respiratory Rate 17 27 H Blood Pressure 105/83 Pulse Oximetry 100 100 100 07/07/18 03:58 07/07/18 04:00 07/07/18 05:00 Temperature 93.3 F L Pulse Rate 57 L 59 L Respiratory Rate 18 18 18 Blood Pressure Pulse Oximetry 100 100 100 07/07/18 06:00 07/07/18 07:00 07/07/18 08:00 Temperature 95.4 F L Pulse Rate 62 68 68 Respiratory Rate 18 18 12 Blood Pressure Pulse Oximetry 100 100 100 07/07/18 09:00 07/07/18 10:00 07/07/18 10:20 Temperature 95.9 F L 96.6 F L Pulse Rate 68 69 Respiratory Rate 18 18 18 Blood Pressure Pulse Oximetry 100 95 91 L 07/07/18 11:00 07/07/18 11:37 07/07/18 11:41 Temperature 97.3 F L 97.9 F 97.7 F Pulse Rate 70 58 L 73 Respiratory Rate 14 19 26 H Blood Pressure 46/30 L 64/44 L Pulse Oximetry 99 98 96 07/07/18 11:54 07/07/18 12:00 07/07/18 13:00 Temperature 97.9 F 97.9 F 97.9 F Pulse Rate 71 72 70 Respiratory Rate 13 13 14 Blood Pressure 85/51 L 79/51 L Pulse Oximetry 100 98 100 07/07/18 14:00 07/07/18 15:00 07/07/18 16:00 Temperature 98.2 F 98.8 F 99.3 F Pulse Rate 72 70 71 Respiratory Rate 12 12 12 Blood Pressure Pulse Oximetry 100 100 100 07/07/18 17:28 07/07/18 18:00 Temperature Pulse Rate 72 Respiratory Rate 12 Blood Pressure Pulse Oximetry 100 Intake & Output 07/07/18 07/07/18 07/08/18 06:59 18:59 06:59 Intake Total 3750 / 3750 3500 / 3500 50 / 50 Output Total 3350 / 3350 675 / 675 Balance 400 / 400 2825 / 2825 50 / 50 Weight 99.4 kg Intake: IV 3750 / 3750 3500 / 3500 50 / 50 Versed Inj 50 mg In 50 ml @ 2 50 / 50 MG/HR 2 mls/hr IV.CONT TITRATE PRN Rx#:[id number] Sodium Bicarbonate 8.4% Inj 150 2000 / 2000 MEQ In Sterile Water for Inj 850 ML @ 150 mls/hr IV.CONT . Q6H40M [facility] Rx#:[id number] Buminate 5% Inj 250 ML @ 250 250 / 250 mls/hr IV.SIG Q12H [facility] Rx#: [id number] Alburx 5% Inj 500 ML @ 250 mls/ 500 / 500 1500 / 1500 hr IV.SIG Q6H [facility] Rx#:[id number] NS Inj 1,000 ML @ Wide Open IV. 3000 / 3000 SIG BOLUS [facility] Rx#:[id number] Output: Stool 0 / 0 Urine Amount (Catheter) 100 / 100 200 / 200 Indwelling Urethral Catheter 100 / 100 200 / 200 Gastric Drainage 75 / 75 Orogastric Tube 75 / 75 Chest Tube Drainage 3250 / 3250 400 / 400 Right 3250 / 3250 400 / 400 Other: Mode Setting R BKA stump Continuous Date of Last Bowel Movement 07/06/18 07/06/18 - Urinary Catheter Management Indwelling Urethral Catheter Cath placed during this visit: no <Josr Cheema - Last Filed: 07/07/18 19:39> Assessment and Plan - Assessment (1) Hyperkalemia Code(s): E87.5 - Hyperkalemia Status: Acute (2) CHF (congestive heart failure) Code(s): I50.9 - Heart failure, unspecified Status: Acute Qualifiers: Heart failure type: unspecified Heart failure chronicity: acute on chronic Qualified Code(s): I50.9 - Heart failure, unspecified (3) YOLY (acute kidney injury) Code(s): N17.9 - Acute kidney failure, unspecified Status: Acute (4) Status post below knee amputation Code(s): Z89.519 - Acquired absence of unspecified leg below knee Status: Acute - Plan Acute kidney injury with creatinine of 1.90 and hyperkalemia of 6.1. YOLY possibly related to CHF and third spacing. Hyperkalemia treated could be related to worsening kidney function or possibly related to beta han. Renal ultrasound noted Indwelling Walters catheter placed maintain strict I+O, needed to be replaced secondary to pulling out. Significant edema with poor urinary output, will increase lasix to 80 mg BID Hyperkalemia improved at 5.3 today continue low potassium diet. PO4 elevated will add phoslo with meals Hypocalcemia, on oral replacement. Will follow electrolytes and BMP closely. <Apryl Damon - Last Filed: 07/06/18 15:50> - Assessment (1) Hyperkalemia Code(s): E87.5 - Hyperkalemia Status: Acute (2) CHF (congestive heart failure) Code(s): I50.9 - Heart failure, unspecified Status: Acute Qualifiers: Heart failure type: unspecified Heart failure chronicity: acute on chronic Qualified Code(s): I50.9 - Heart failure, unspecified (3) YOLY (acute kidney injury) Code(s): N17.9 - Acute kidney failure, unspecified Status: Acute (4) Status post below knee amputation Code(s): Z89.519 - Acquired absence of unspecified leg below knee Status: Acute - Plan Patient seen and examine, agree with above. Has increasing edema, also Creatinine increase to 2.1. Will increase Lasix 80 mg IV BID. Follow the urine out put and BMP. <Josr Cheema - Last Filed: 07/07/18 19:39>
[2018-07-06] MEDS: Calcium Acetate 667 MG Capsule PO SCH (19:31)
--- NOTE | 2018-07-06 23:18 | P.PNADD ---
Addendum to Inpatient Note Reason for Addendum: Additional Documentation Additional information: Resident team responded to code blue 10:51PM. Dry Heat Cabinet Attendant was present managing code when we arrived. Resident assisted with chest compressions until patient had a pulse and code was completed.
--- NOTE | 2018-07-06 23:19 | P.PNCC ---
Subjective Subjective Remarks/Hospital Course: 53-year-old male presented to emergency department today with complaints of shortness of breath, fatigue, and extensive draining edema of the lower extremities bilaterally. Per chart review his symptoms started 5 days ago and the swelling of his lower legs and feet have progressively gotten worse over the past 5 days. The patient also has had pain in the back of both lower extremities from the knees to the toes. He denied chest pain. He has a history of type-II diabetes mellitus and congestive heart failure. He has not taken any of his regular medications for the past 3 weeks due to financial limitations. During the examination in the emergency department he was found to have gangrene of the right foot and was emergently taken to operating room for an incision and drainage with debridement of foot and ankle. Postoperatively he remains intubated and was admitted to ICU for critical care management. SUBJ: s/p Incision drainage debridement foot ankle and distal leg, for gas gangrene. Remains in septic shock on Levophed. Remains intubated sedated. Currently on vancomycin and Zosyn I have added clindamycin. Cultures and wound cultures pending . Vascular surgery consult also pending. Received 2 units PRBC for hemoglobin of 5.3 06/04/18: Patient had been weaned off all pressors. Wakes up easily follows commands. 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 WBC count remains elevated but renal function improving. Hemoglobin stable. Multiple blood cultures growing E. coli. Wound culture with E. coli, MRSA, gram-negative rods. Continue Zosyn and vancomycin 06/05: Remains off vasopressors. Alert and conversant. Encephalopathy clearing. Blood and wound organisms identified, antibiotic coverage appropriate. 06/06: Normotensive. Afebrile. Urine output acceptable. Septic picture largely over. Base deficit largely corrected. Blood sugar trending higher will convert to full diabetic diet. 07/06: Responded to [facility] on the fourth floor. Per nursing report patient was complaining of shortness of breath, then became unresponsive and pulseless. CODE BLUE was activated and CPR was initiated. Upon my arrival I have immediately intubated patient with ET tube during the CPR, patient regained spontaneous circulation after approximately 4 cycles of CPR and injections of epinephrine and sodium bicarbonate and calcium. Shortly after that he became severely bradycardic with loss of pulsation again and new CPR cycle was initiated after 2 cycles of CPR and 2 injections of epinephrine sodium bicarbonate patient regained spontaneous circulation again and was transferred to intensive care unit on epinephrine drip. The central line and A-line were placed in the ISC, however patient has a signs of anoxic brain damage already, and dilated pupils at 8 mm as well as occasional myoclonic jerks. Objective Vital Signs / I&O: Vital Signs 07/06/18 00:00 07/06/18 03:58 07/06/18 08:00 Temperature 97.6 F 97.8 F 97.9 F Pulse Rate 74 74 74 Respiratory Rate 19 19 18 Blood Pressure 95/71 L 101/66 120/80 Pulse Oximetry 95 97 100 07/06/18 12:00 07/06/18 16:00 07/06/18 20:00 Temperature 98.0 F 98.1 F 98.7 F Pulse Rate 63 74 62 Respiratory Rate 18 18 17 Blood Pressure 122/78 124/76 114/64 Pulse Oximetry 100 100 94 L Intake & Output 07/06/18 07/06/18 07/07/18 06:59 18:59 06:59 Intake Total 510 / 510 670 / 670 Output Total 250 / 250 450 / 450 Balance 260 / 260 220 / 220 Weight 88.2 kg Intake: IV 250 / 250 250 / 250 Buminate 5% Inj 250 ML @ 250 250 / 250 250 / 250 mls/hr IV.SIG Q12H [facility] Rx#: [id number] Oral 260 / 260 420 / 420 Output: Urine 450 / 450 Urine Amount (Catheter) 250 / 250 Indwelling Urethral Catheter 250 / 250 Other: # Incontinent Voids 1 Date of Last Bowel Movement 07/05/18 07/06/18 # Bowel Movements 4 # Incontinent Bowel Movements 3 Result Diagrams: 07/07/18 00:30 07/06/18 13:36 Objective Remarks: - Constitutional Intubated, sedated - Routine HEENT Exam Head: Present: normocephalic, atraumatic Eye: Present: Pupils 8 mm fixed and dilated bilaterally ENT: Endotracheally intubated. - Routine Neck Exam Present: supple. No JVD - Routine Respiratory Exam Present: Fine rhonchi bilaterally, occasional crackles, decreased breath sounds at the right. - Routine Cardiovascular Exam Present: RRR, S1, S2. Hemodynamically unstable on epinephrine drip. No JVD. - Routine Abdominal Exam Present: soft, normoactive bowel sounds, no guarding. Absent: tenderness, distended - Routine Extremities Exam Status post right BKA, wound clean without discharge or bleeding. L heel ulcer - Routine Neurological Exam Fixed and dilated pupils nonreactive, myoclonic jerks Assessment and Plan - Assessment and Plan Plan: A/P Neuro: Status post cardiac arrest Signs of anoxic brain damage -Not a candidate for therapeutic hypothermia due to sepsis and C. difficile colitis -EEG -CT head when hemodynamically improved and more stabilized -Neurology and palliative care consultation Resp: Respiratory failure Large pleural effusion -Respiratory failure -Mechanical ventilation -No weaning until neurologically and hemodynamically stable -Vent bundle -DuoNeb's as needed -Thoracentesis for pleural effusion drainage, pending coags CVS/ID Septic shock Gangrene of the right foot -Broad-spectrum antibiotic with vancomycin and Zosyn, completed per ID recommendation -Multiple blood cultures with E. coli, wound culture with E. coli, gram- negative ankur, MRSA -Status post I&D and debridement, status post BKA by Dr. Cooney -Continue IV fluid and blood product resuscitation -Epinephrine drip to keep map above 65, transition to Levophed if tolerated HEME Blood loss anemia -Monitor H&H and transfuse to keep hemoglobin above 7 : Acute kidney injury -Strict I's and O's. IV fluid hydration -Monitor electrolytes and creatinine level -Creatinine has been worsening -Nephrology consultation appreciated ID: Gangrenous right foot. Bacteremia C. difficile colitis -Vancomycin and Zosyn was completed per ID recommendation -P.o. vancomycin GI: -Nepro tube feeds Endo: Diabetes mellitus -Insulin sliding scale DVT GI prophylaxis -Teds SCDs -Heparin subcu -Pepcid Overall impression: Extremely poor prognosis, critically ill patient, most likely with anoxic brain damage
[2018-07-07 00:47] LABS: Baso % (Auto) 0.4 % (0.0-2.0); Eos % (Auto) 0.1 % (0.0-4.0); Hematocrit 27.1 % (39.0-51.0); Hemoglobin 9.5 gm/dL (13.0-17.0); Lymph # (Auto) 2.3 th/mm3 (1.0-4.8); Lymph % (Auto) 23.3 % (9.0-44.0); Mean Corpuscular Volume 91.6 fL (80.0-100.0); Mono # (Auto) 0.3 th/mm3 (0.0-0.9); Mono % (Auto) 2.9 % (0.0-8.0); Neut # (Auto) 7.4 th/mm3 (1.8-7.7); Neut % (Auto) 73.3 % (16.0-70.0); Platelet Count 216 th/mm3 (150-450); Red Blood Count 2.96 mil/mm3 (4.50-5.90); Red Cell Distribution Width 20.5 % (11.6-17.2); White Blood Count 10.1 th/mm3 (4.0-11.0)
[2018-07-07] MEDS: Insulin NovoLOG Aspart Correctional Sugar Inj SQ SCH ×5 (00:47→20:53)
[2018-07-07] MEDS: Sodium Chloride 0.9% 2 ML Flush BID IV.FLUSH SCH ×3 (00:47→20:53)
[2018-07-07] MEDS: Sod Chloride 0.9% Inj 1,000 ML IV.SIG SCH ×3 (01:00→02:00)
[2018-07-07 01:23] LABS: Activated Partial Thrombo Time 30.8 sec (24.3-30.1); INR 2.1 Ratio; Prothrombin Time 21.6 sec (9.8-11.6)
[2018-07-07 01:31] LABS: Lymphocytes 25 % (9-44); Metamyelocytes 1 % (0-1); Monocytes 3 % (0-8)
[2018-07-07 01:32] LABS: Burr Cells 1+; Platelet Estimate Normal (Normal); Platelet Morphology Normal (Normal); Toxic Granulation 1+
--- NOTE | 2018-07-07 01:38 | XR ---
EXAM DATE: 07/07/2018 12:45 AM EDT AGE/SEX: 53 years / Male INDICATIONS: Central line placement. CLINICAL DATA: This is the patient's subsequent encounter. Patient reports that signs and symptoms h ave been present for 1 week and indicates a pain score of 0/10. MEDICAL/SURGICAL HISTORY: Congestive heart failure. Diabetes. Cholecystectomy. COMPARISON: [facility] [place], CHEST 1V SINGLE AP, 07/03/2018. . FINDINGS: ET tube and NG tube and right internal jugular central line are well placed. The heart size appears t o be within normal limits. There is a moderate to large right pleural effusion. There is hazy density seen throughout the right lung and at the left base. There is silhouetting of the hemidiaphragms adam aterally. Some degree of left effusion may be present. There is no fracture deformity at the mid left clavicle. CONCLUSION: New right internal jugular central line in good position. A pneumothorax is not seen. Moderate to large right pleural effusion. Hazy density at the left base representing some consolidation, atelectasis and possible milder left p leural effusion. There is suspected consolidation or atelectasis at the right base. Atelectasis is more likely given t he size of the right effusion. Electronically signed by: Anton De Santiago MD 07/07/2018 1:37 AM EDT
[2018-07-07] MEDS: fentaNYL 10 mcg/mL Premix Drip 2,500 MCG/250 ML BAG IV.SIG PRN (02:00)
[2018-07-07] MEDS: Sodium Bicarbonate 8.4% Inj 150 MEQ in Water for Inj, Sterile 850 ML IV.CONT SCH ×3 (02:28→16:36)
[2018-07-07] MEDS: Albumin Human 5% Inj 500 ML IV.SIG SCH ×4 (02:29→17:06)
--- NOTE | 2018-07-07 02:36 | P.PCN ---
Date of procedure: 07/07/18 Pre-op diagnosis: Shock Post-op diagnosis: same Procedure: Arterial line placement A time-out was completed verifying correct patient, procedure, site, positioning , and special equipment if applicable. Allens test was performed to ensure adequate perfusion. The patients right wrist was prepped and draped in sterile fashion. 1% Lidocaine was used to anesthetize the area. A 18G Arrow arterial line was introduced into the radial artery. The catheter was threaded over the guide wire and the needle was removed with appropriate pulsatile blood return. The catheter was then sutured in place to the skin and a sterile dressing applied. Perfusion to the extremity distal to the point of catheter insertion was checked and found to be adequate. Estimated Blood Loss: 1ml The patient tolerated the procedure well and there were no complications.
--- NOTE | 2018-07-07 02:36 | P.PCN ---
Date of procedure: 07/07/18 Pre-op diagnosis: Respiratory failure Post-op diagnosis: same Procedure: Endotracheal Intubation A time-out was completed verifying correct patient, procedure, site, positioning , and special equipment if applicable. The patient was placed in a flat position. Sedation was obtained using Etomidate 20mg. The patient was easily ventilated using an ambu bag. The [employer]/ MAC 4 BLADE was used and inserted into the oropharynx at which time there was a Grade 1 view of the vocal cords. A 8-greenlandic endotracheal tube was inserted and visualized going through the vocal cords. The stylette was removed. Colorimetric change was visualized on the CO2 meter. Breath sounds were heard in both lung ribera equally. The endotracheal tube was placed at 23 cm, measured at the teeth. A chest x-ray was ordered to assess for pneumothorax and verify endotrachealtube placement. Estimated Blood Loss: 0 The patient tolerated the procedure well and there were no complications.
--- NOTE | 2018-07-07 02:37 | P.PCN ---
Date of procedure: 07/07/18 Pre-op diagnosis: Shock Post-op diagnosis: same Procedure: Central line placement A time-out was completed verifying correct patient, procedure, site, positioning , and special equipment if applicable. The patient was placed in a dependent position appropriate for central line placement based on the vein to be cannulated. The patients right neck was prepped and draped in sterile fashion. 1% Lidocaine was used to anesthetize the surrounding skin area. A triple lumen 9 -Sinhala Cordis catheter was introduced into the the internal jugular vein using the Seldinger technique and under ultrasound guidance. The catheter was threaded smoothly over the guide wire and appropriate blood return was obtained. Each lumen of the catheter was evacuated of air and flushed with sterile saline. The catheter was then sutured in place to the skin and a sterile dressing applied. Perfusion to the extremity distal to the point of catheter insertion was checked and found to be adequate. Estimated Blood Loss: 1ml The patient tolerated the procedure well and there were no complications.
[2018-07-07 02:48] LABS: Albumin 1.3 g/dL (3.4-5.0); Calcium 6.8 mg/dL (8.5-10.1); Carbon Dioxide 32.5 meq/L (21.0-32.0); Magnesium 2.2 mg/dL (1.5-2.5)
[2018-07-07 02:58] LABS: Phosphorus 8.3 mg/dL (2.5-4.9)
[2018-07-07 03:11] LABS: ABG Base Excess 1.9 mmol/L (-2-2); ABG PCO2 33 mmHg (38-42); ABG PO2 255 mmHg (61-120)
[2018-07-07 04:24] LABS: Alanine Aminotransferase 164 U/L (12-78); Albumin 1.4 g/dL (3.4-5.0); Alkaline Phosphatase 210 U/L (45-117); Anion Gap 8 meq/L (5-15); Aspartate Aminotransferase 361 U/L (15-37); Blood Urea Nitrogen 63 mg/dL (7-18); Calcium 6.1 mg/dL (8.5-10.1); Carbon Dioxide 26.9 meq/L (21.0-32.0); Chloride 107 meq/L (98-107); Glomerular Filtration Rate 33 mL/min (>89); Glucose,Random 58 mg/dL (74-106); Potassium 4.7 meq/L (3.5-5.1); Sodium 142 meq/L (136-145); Total Protein 4.6 g/dL (6.4-8.2)
--- NOTE | 2018-07-07 06:05 | P.PCN ---
Date of procedure: 07/07/18 Pre-op diagnosis: Respiratory failure due to large pleural effusion Post-op diagnosis: same Procedure: Procedure: CHEST TUBE Indication: Large pleural effusion with compromise of minute ventilation Performed by: Omari Hussein time out procedure was performed Initials Consent obtained JV Correct patient JV Correct procedure JV Correct site JV Correct positioning JV Correct supplies JV Patient was positioned, prepped and draped in usual sterile fashion. ccs 1% Lidocaine was used to anesthetize the area. An incision was made and blunt dissection was performed and curved forceps were used to enter the pleural space. A 8 fr chest tube was placed to 15cm. The tube was secured and taped. A chest xray was ordered to evaluate for placement of the chest tube. A pigtail catheter was placed using the seldinger technique. Initial Fluid Removed: 1500 Patient tolerated the procedure well and there were no complications.
--- NOTE | 2018-07-07 06:44 | XR ---
EXAM DATE: 07/07/2018 6:02 AM EDT AGE/SEX: 53 years / Male INDICATIONS: Chest tube placement. CLINICAL DATA: This is the patient's subsequent encounter. Patient reports that signs and symptoms h ave been present for 3 weeks and indicates a pain score of Nonresponsive. MEDICAL/SURGICAL HISTORY: Congestive heart failure. Diabetes. None. COMPARISON: [facility], CHEST 1V SINGLE AP, 07/07/2018. . FINDINGS: ET tube, NG tube and right internal jugular central line are well placed. The heart size is enlarged. This increased density seen throughout the mid and lower lungs bilaterally. There is silhouetting th e hemidiaphragms. CONCLUSION: Suspected bilateral pleural effusions being worse on the right. Increased density in the mid and lower lungs likely related to atelectasis or consolidation in these regions. Cardiomegaly. Electronically signed by: Anton De Santiago MD 07/07/2018 6:43 AM EDT
[2018-07-07] MEDS: Midazolam 50 MG/50 ML Inj 50 MG/50 ML BAG IV.CONT PRN ×2 (06:49→19:07)
[2018-07-07] MEDS: Dextrose 50% in Water 50 ML Vial IV.PUSH PRN ×3 (07:30→21:35)
[2018-07-07 08:09] LABS: Total Protein,Pleural Fluid 1.1 gm/dL
[2018-07-07] MEDS: Albumin Human 5% Inj 250 ML IV.SIG SCH ×2 (08:59→20:53)
[2018-07-07] MEDS: Carvedilol 12.5 MG Tablet PO SCH ×2 (08:59→20:53)
[2018-07-07 09:38] LABS: Eosinophils,Pleural Fluid 4 %; Lymphocytes,Pleural Fluid 66 %; Mesothelial,Pleural Fluid 6 %; Monocytes,Pleural Fluid 4 %; Neutrophils,Pleural Fluid 20 %
[2018-07-07 09:40] LABS: RBC,Pleural Fluid 112 /mm3 (0-0)
--- NOTE | 2018-07-07 09:44 | P.PNCC ---
Subjective Subjective Remarks/Hospital Course: 53-year-old male presented to emergency department today with complaints of shortness of breath, fatigue, and extensive draining edema of the lower extremities bilaterally. Per chart review his symptoms started 5 days ago and the swelling of his lower legs and feet have progressively gotten worse over the past 5 days. The patient also has had pain in the back of both lower extremities from the knees to the toes. He denied chest pain. He has a history of type-II diabetes mellitus and congestive heart failure. He has not taken any of his regular medications for the past 3 weeks due to financial limitations. During the examination in the emergency department he was found to have gangrene of the right foot and was emergently taken to operating room for an incision and drainage with debridement of foot and ankle. Postoperatively he remains intubated and was admitted to ICU for critical care management. SUBJ: s/p Incision drainage debridement foot ankle and distal leg, for gas gangrene. Remains in septic shock on Levophed. Remains intubated sedated. Currently on vancomycin and Zosyn I have added clindamycin. Cultures and wound cultures pending . Vascular surgery consult also pending. Received 2 units PRBC for hemoglobin of 5.3 06/04/18: Patient had been weaned off all pressors. Wakes up easily follows commands. 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 WBC count remains elevated but renal function improving. Hemoglobin stable. Multiple blood cultures growing E. coli. Wound culture with E. coli, MRSA, gram-negative rods. Continue Zosyn and vancomycin 06/05: Remains off vasopressors. Alert and conversant. Encephalopathy clearing. Blood and wound organisms identified, antibiotic coverage appropriate. 06/06: Normotensive. Afebrile. Urine output acceptable. Septic picture largely over. Base deficit largely corrected. Blood sugar trending higher will convert to full diabetic diet. 07/06: Responded to [facility] on the fourth floor. Per nursing report patient was complaining of shortness of breath, then became unresponsive and pulseless. [facility] was activated and CPR was initiated. Upon my arrival I have immediately intubated patient with ET tube during the CPR, patient regained spontaneous circulation after approximately 4 cycles of CPR and injections of epinephrine and sodium bicarbonate and calcium. Shortly after that he became severely bradycardic with loss of pulsation again and new CPR cycle was initiated after 2 cycles of CPR and 2 injections of epinephrine sodium bicarbonate patient regained spontaneous circulation again and was transferred to intensive care unit on epinephrine drip. The central line and A-line were placed in the [facility], however patient has a signs of anoxic brain damage already, and dilated pupils at 8 mm as well as occasional myoclonic jerks. 07/07: He remains unresponsive. Vasopressor support now at 1 devonte per minute epinephrine. He is tepid but adequately perfused. Some spontaneous urine production has occurred. Acid-base balance is normal. Electrolyte levels are acceptable. Now ventilator dependent and intubated oral tracheal route. We will continue ongoing resuscitative efforts while following his electrolytes and acid-base balance. Objective Vital Signs / I&O: Vital Signs 07/06/18 12:00 07/06/18 16:00 07/06/18 20:00 Temperature 98.0 F 98.1 F 98.7 F Pulse Rate 63 74 62 Respiratory Rate 18 18 17 Blood Pressure 122/78 124/76 114/64 Pulse Oximetry 100 100 94 L 07/06/18 23:20 07/07/18 00:00 07/07/18 00:51 Temperature 91.1 F L Pulse Rate 74 Respiratory Rate 18 20 18 Blood Pressure 139/106 H Pulse Oximetry 100 100 99 07/07/18 03:58 07/07/18 04:00 Temperature 93.3 F L Pulse Rate 57 L Respiratory Rate 18 18 Blood Pressure Pulse Oximetry 100 100 Intake & Output 07/06/18 07/07/18 07/07/18 18:59 06:59 18:59 Intake Total 670 / 670 3750 / 3750 Output Total 450 / 450 3350 / 3350 Balance 220 / 220 400 / 400 Weight 99.4 kg Intake: IV 250 / 250 3750 / 3750 Buminate 5% Inj 250 ML @ 250 250 / 250 250 / 250 mls/hr IV.SIG Q12H [facility] Rx#: [id number] Alburx 5% Inj 500 ML @ 250 mls/ 500 / 500 hr IV.SIG Q6H [facility] Rx#:[id number] NS Inj 1,000 ML @ Wide Open IV. 3000 / 3000 SIG BOLUS [facility] Rx#:[id number] Oral 420 / 420 Output: Urine 450 / 450 Urine Amount (Catheter) 100 / 100 Indwelling Urethral Catheter 100 / 100 Chest Tube Drainage 3250 / 3250 Right 3250 / 3250 Other: Date of Last Bowel Movement 10/23/18 10/23/18 # Bowel Movements 4 Result Diagrams: 07/07/18 00:30 07/07/18 03:10 Objective Remarks: - Constitutional Intubated, sedated - Routine HEENT Exam Head: Present: normocephalic, atraumatic Eye: Present: Pupils 8 mm fixed and dilated bilaterally ENT: Endotracheally intubated. - Routine Neck Exam Present: supple. No JVD - Routine Respiratory Exam Present: Persistent rhonchi bilaterally, few crackles, decreased breath sounds at the right. - Routine Cardiovascular Exam Present: RRR, S1, S2. Hemodynamically unstable on epinephrine drip. No JVD. - Routine Abdominal Exam Present: soft, normoactive bowel sounds, no guarding. Absent: tenderness, distended - Routine Extremities Exam Status post right BKA, wound clean without discharge or bleeding. L heel ulcer - Routine Neurological Exam Fixed and dilated pupils nonreactive, myoclonic jerks. Not breathing spontaneously over the set ventilator rate. Assessment and Plan - Assessment and Plan Plan: A/P Neuro: Status post cardiac arrest Signs of anoxic brain damage -Not a candidate for therapeutic hypothermia due to sepsis and C. difficile colitis -EEG -CT head when hemodynamically improved and more stabilized -Neurology and palliative care consultation Resp: Respiratory failure Large pleural effusion -Respiratory failure -Mechanical ventilation -No weaning until neurologically and hemodynamically stable -Vent bundle -DuoNeb's as needed -Thoracentesis for pleural effusion drainage, pending coags CVS/ID Septic shock Gangrene of the right foot -Broad-spectrum antibiotic with vancomycin and Zosyn, completed per ID recommendation -Multiple blood cultures with E. coli, wound culture with E. coli, gram- negative ankur, MRSA -Status post I&D and debridement, status post BKA by Dr. Cooney -Continue IV fluid and blood product resuscitation -Epinephrine drip to keep map above 65, transition to Levophed if tolerated HEME Blood loss anemia -Monitor H&H and transfuse to keep hemoglobin above 7 : Acute kidney injury -Strict I's and O's. IV fluid hydration -Monitor electrolytes and creatinine level -Creatinine has been worsening -Nephrology consultation appreciated ID: Gangrenous right foot. Bacteremia C. difficile colitis -Vancomycin and Zosyn was completed per ID recommendation -P.o. vancomycin GI: -Nepro tube feeds Endo: Diabetes mellitus -Insulin sliding scale DVT GI prophylaxis -Teds SCDs -Heparin subcu -Pepcid Overall impression: Patient remains critically ill with hemodynamic instability and dependence on mechanical ventilation. There appears to have been a severe anoxic brain injury and the presence of discoordinated myoclonic activity. Will obtain EEG to rule out nonconvulsive seizures Critical care 45 minutes aside from procedures
[2018-07-07 10:42] LABS: ABG Base Excess 4.4 mmol/L (-2-2); ABG PCO2 30 mmHg (38-42); ABG PO2 58 mmHg (61-120)
[2018-07-07] MEDS: Calcium Acetate 667 MG Capsule PO SCH ×3 (10:56→18:15)
[2018-07-07] MEDS: Calcium Carbonate 500 MG Tablet PO SCH ×2 (10:57→20:52)
[2018-07-07] MEDS: Famotidine 20 MG Tablet PO SCH ×2 (10:57→20:52)
[2018-07-07] MEDS: Senna/Docusate Sodium 8.6/50 MG Tablet PO SCH ×2 (10:58→20:53)
[2018-07-07] MEDS: Collagenase Oint 30 GM Tube TOPICAL SCH ×2 (10:59)
[2018-07-07] MEDS: Sodium Bicarbonate 650 MG Tablet PO SCH ×2 (10:59→20:52)
--- NOTE | 2018-07-07 11:15 | P.PNNP ---
Subjective Interval history: Code blue last night. Now intubated on pressor support. Creatinine at 2.14 today and urinary output slightly improved. <MarciebridgetteApryl leon - Last Filed: 07/07/18 11:04> Physical Exam Vital signs: Vital Signs 07/06/18 12:00 07/06/18 16:00 07/06/18 20:00 Temperature 98.0 F 98.1 F 98.7 F Pulse Rate 63 74 62 Respiratory Rate 18 18 17 Blood Pressure 122/78 124/76 114/64 Pulse Oximetry 100 100 94 L 07/06/18 23:20 07/07/18 00:00 07/07/18 00:51 Temperature 91.1 F L Pulse Rate 74 Respiratory Rate 18 20 18 Blood Pressure 139/106 H Pulse Oximetry 100 100 99 07/07/18 03:58 07/07/18 04:00 Temperature 93.3 F L Pulse Rate 57 L Respiratory Rate 18 18 Blood Pressure Pulse Oximetry 100 100 Intake & Output 07/06/18 07/07/18 07/07/18 18:59 06:59 18:59 Intake Total 670 / 670 3750 / 3750 500 / 500 Output Total 450 / 450 3350 / 3350 Balance 220 / 220 400 / 400 500 / 500 Weight 99.4 kg Intake: IV 250 / 250 3750 / 3750 500 / 500 Buminate 5% Inj 250 ML @ 250 250 / 250 250 / 250 mls/hr IV.SIG Q12H [facility] Rx#: [id number] Alburx 5% Inj 500 ML @ 250 mls/ 500 / 500 500 / 500 hr IV.SIG Q6H [facility] Rx#:[id number] NS Inj 1,000 ML @ Wide Open IV. 3000 / 3000 SIG BOLUS [facility] Rx#:[id number] Oral 420 / 420 Output: Urine 450 / 450 Urine Amount (Catheter) 100 / 100 Indwelling Urethral Catheter 100 / 100 Chest Tube Drainage 3250 / 3250 Right 3250 / 3250 Other: Mode Setting R BKA stump Continuous Date of Last Bowel Movement 07/06/18 07/06/18 # Bowel Movements 4 Narrative: GENERAL: Orally Intubated. Non responsive NECK: Supple, trachea midline. No JVD. CARDIOVASCULAR: Bradycardia. Regular rhythm without murmurs, gallops, or rubs. Chest tube RESPIRATORY: Breath sounds with rhonchi. GASTROINTESTINAL: Abdomen soft, non-tender, nondistended. GENITOURINARY: Indwelling Walters catheter MUSCULOSKELETAL: No cyanosis, or edema. BACK: Nontender without obvious deformity. No CVA tenderness. - Urinary Catheter Management Indwelling Urethral Catheter Cath placed during this visit: yes, but has since been removed by the nurse Urethral indwelling: Yes Reason for continuing: Hourly intake/output Insertion date: 07/05/18 Insertion time: 13:59 Removal date: 07/06/18 Removal time: 14:57 <Apryl Damon - Last Filed: 07/07/18 11:04> Vital signs: Vital Signs 07/07/18 20:00 07/07/18 22:59 07/08/18 00:00 Temperature 99.1 F 98.1 F Pulse Rate 70 66 Respiratory Rate 12 12 12 Blood Pressure Pulse Oximetry 100 100 100 07/08/18 01:41 07/08/18 04:00 07/08/18 04:26 Temperature 97.2 F L Pulse Rate 64 Respiratory Rate 12 12 12 Blood Pressure Pulse Oximetry 100 100 100 07/08/18 08:00 07/08/18 08:53 07/08/18 10:00 Temperature 97.6 F Pulse Rate 65 71 Respiratory Rate 12 12 Blood Pressure 93/69 L Pulse Oximetry 100 100 07/08/18 11:55 07/08/18 12:00 07/08/18 14:00 Temperature 99.2 F Pulse Rate 74 74 Respiratory Rate 19 12 Blood Pressure 112/71 Pulse Oximetry 100 100 07/08/18 16:00 07/08/18 16:31 07/08/18 17:26 Temperature 99.1 F Pulse Rate 74 Respiratory Rate 12 16 Blood Pressure 118/75 Pulse Oximetry 100 99 07/08/18 18:00 Temperature Pulse Rate 72 Respiratory Rate Blood Pressure Pulse Oximetry Intake & Output 07/08/18 07/08/18 07/09/18 06:59 18:59 06:59 Intake Total 1420 / 1420 1696 / 1696 Output Total 2150 / 2150 2100 / 2100 Balance -730 / -730 -404 / -404 Weight 97.9 kg Intake: IV 1300 / 1300 1400 / 1400 Versed Inj 50 mg In 50 ml @ 2 50 / 50 50 / 50 MG/HR 2 mls/hr IV.CONT TITRATE PRN Rx#:[id number] Sodium Bicarbonate 8.4% Inj 150 1000 / 1000 1000 / 1000 MEQ In Sterile Water for Inj 850 ML @ 150 mls/hr IV.CONT . Q6H40M [facility] Rx#:[id number] Buminate 5% Inj 250 ML @ 250 250 / 250 250 / 250 mls/hr IV.SIG Q12H [facility] Rx#: [id number] Calcium Gluconate Inj 1 GM In 100 / 100 NS Inj 90 ML @ 100 mls/hr IV. SIG ONCE ONE Rx#:[id number] fentaNYL 10 mcg/mL Premix Drip 0 / 0 2,500 mcg In 250 ml @ 50 MCG/HR 5 mls/hr IV.SIG TITRATE PRN Rx #:[id number] Tube Feeding 60 / 60 296 / 296 Tube Irrigant 60 / 60 Output: Urine Amount (Catheter) 450 / 450 1250 / 1250 Indwelling Urethral Catheter 450 / 450 1250 / 1250 Chest Tube Drainage 1700 / 1700 850 / 850 Right 1700 / 1700 850 / 850 Other: Date of Last Bowel Movement 07/08/18 # Bowel Movements 1 - Urinary Catheter Management Indwelling Urethral Catheter Cath placed during this visit: no <Mervat Cheema Q - Last Filed: 07/08/18 19:43> Assessment and Plan - Assessment (1) Hyperkalemia Code(s): E87.5 - Hyperkalemia Status: Acute (2) CHF (congestive heart failure) Code(s): I50.9 - Heart failure, unspecified Status: Acute Qualifiers: Heart failure type: unspecified Heart failure chronicity: acute on chronic Qualified Code(s): I50.9 - Heart failure, unspecified (3) YOLY (acute kidney injury) Code(s): N17.9 - Acute kidney failure, unspecified Status: Acute (4) Status post below knee amputation Code(s): Z89.519 - Acquired absence of unspecified leg below knee Status: Acute - Plan Acute kidney injury with creatinine of 1.90 and hyperkalemia of 6.1 on day of consult YOLY possibly related to CHF and third spacing. S/p Code blue last night, now intubated on pressor support Renal ultrasound noted Indwelling Walters catheter placed maintain strict I+O Maintain Map of 65 mmhg, on pressor support Hyperkalemia resolved. Creatinine slightly improved at 2.14 and urinary output has started to improve Continue IVF with bicarbonate and Lasix Will follow electrolytes and BMP closely. <Apryl Damon - Last Filed: 07/07/18 11:04> - Assessment (1) Hyperkalemia Code(s): E87.5 - Hyperkalemia Status: Acute (2) CHF (congestive heart failure) Code(s): I50.9 - Heart failure, unspecified Status: Acute Qualifiers: Heart failure type: unspecified Heart failure chronicity: acute on chronic Qualified Code(s): I50.9 - Heart failure, unspecified (3) YOLY (acute kidney injury) Code(s): N17.9 - Acute kidney failure, unspecified Status: Acute (4) Status post below knee amputation Code(s): Z89.519 - Acquired absence of unspecified leg below knee Status: Acute - Plan Patient seen and examine, agree with above. Patient has Code blue last night, now intubated and sedated. Creatinine increase slightly. Start Bumex infusion. <Josr Cheema - Last Filed: 07/08/18 19:43>
--- NOTE | 2018-07-07 11:35 | P.CONPAL ---
Consult Service: Palliative Care Requesting Physician: Omari Noguera Reason for Consult: a. To assist with evaluation and management of symptoms including: Pain, altered mental status b. To assist medical decision maker(s) with: better understanding of current medical conditions; weighing benefits/burdens of medical treatment options; making medical treatment decisions. Primary Care Provider: No Primary Care Physician History of Present Illness History of Present Illness: Mr. Dexter is a 53-year-old male with CHF with EF of 35% and type ll-diabetes [facility] with complaints of shortness of breath, fatigue and weeping, edema in the bilateral lower extremities. Patient reported pain in his back and lower extremities. He stated that his symptoms had progressively worsened over the previous 5 days. Patient stated he had not been taking his regular medications times 3 weeks due to financial limitations. Patient [place] from [place] of [place] and has no medical provider locally; he came to the ED for evaluation because his friend insisted. Diagnostic data: * Vital signs: Pulse 109, respirations 20, BP 96/60, oxygen saturation 98% on room air and oral temperature of 98.6 * WBC: 19.8, hemoglobin 7.8, hematocrit 23.6, platelets 430, neutrophils 18.9% * PT: 13.1, INR 1.3, APTT 32.7 * Sodium: 132, potassium 3.8, chloride 100, carbon dioxide 19.0, glucose 189, calcium 7.7 * BUN: 71, creatinine 2.24, GFR 31 * Lactic acid 1.9 * Total bilirubin: 0.7, AST 35, ALT 15, alkaline phosphatase 175 * Creatine kinase: 66 * Troponin: <0.02 * C-reactive protein: 17.6 * BNP: 1121 * Total protein: 6.9, albumin 0.9 * Blood culture growing Escherichia coli * Wound culture (foot) growing Escherichia coli and MRSA * Doppler study showed subcutaneous edema in bilateral lower extremities, multiple lymph nodes seen in the groin bilaterally some of which were abnormally enlarged; no evidence of lower extremity DVT * X-ray of the foot showed extensive subcutaneous air; no fractures or dislocations were identified Patient's right lower extremity was gangrenous with subcutaneous gas. He was noted to be in acute kidney failure with a white blood count >19,000. Patient was started on vancomycin and Zosyn. Dr. Leonard, podiatry, evaluated the patient in the ED. He was taken emergently to the OR for incision and drainage with debridement of the right foot and ankle. Postoperatively the patient remained intubated and was admitted to the ICU for critical care management. He was transfused with 3u leukocyte reduced RBCs for an H/H of 5.2/16.0. Infectious disease was consulted to assist with management of severe sepsis angering gangrenous right foot. Patient requiring pressor support for refractory hypotension. 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 Patient was taken back to the OR on 3 occasions for wound VAC placement, surgical revisions and finally closure of the posterior flap on 06/24/2018. Patient was transfused with 2u leukocyte reduced RBCs status post surgery. Patient was C. difficile positive on 06/05/2018; treated with vancomycin. Chest x-ray on 07/03/2018 showing a moderate to large right pleural effusion and a small left pleural effusion; cardiomegaly; bibasilar infiltrates and echocardiogram echocardiogram on 07/03/2018 showed severely reduced left ventricular systolic function with EF < 20%. Cardiology following. Nephrology was consulted on 07/05/2018 for YOLY possibly related to CHF and third spacing. Creatinine 1.90; hyperkalemia 6.1. Abdominal/bladder ultrasound on 07/05/2018 showed increased cortical echogenicity in both kidneys suggesting medical renal disease; multiple nonobstructing calculi in the collecting system of the right kidney; appeared to be 2 renal cortical cysts in the left kidney-1 in the upper pole and the larger lesion in the lower pole; lateral to the left kidney there is hypo- echoic but heterogeneous 6.7 x 4.0 x 3.8 cm lesion which appears to be discrete from the kidney itself this area contains internal vascularity and is concerning for a possible mass lesion. 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 He regain spontaneous circulation after approximately 4 cycles of CPR and injections of epinephrine, sodium bicarbonate and calcium. Shortly thereafter, the patient became severely bradycardic and again became pulseless. CPR was reinitiated with ROSC after 2 cycles of CPR and 2 injections of epinephrine and sodium bicarbonate. Patient was transferred to the intensive care unit on an epinephrine drip. A central line and arterial line were placed. Patient was showing signs of anoxic brain injury; pupils dilated at 8 mm and occasional myoclonic jerking was noted. Patient not a candidate for therapeutic hypothermia secondary to sepsis and C. difficile colitis. This morning the patient remains unresponsive. He remains intubated on mechanical ventilation; requiring ongoing pressor support. Sedated on Fentanyl and Versed drip. EEG pending. Palliative Care was consulted to assist with symptom management and to discuss with the family the benefits and burdens of his current illnesses and the options regarding future care. Function/Cognitive Trajectory: Family states the patient has been hospitalized at least 4 times in the past year. Review of Systems unobtainable due to endotracheal tube, unobtainable due to mental status PMFSH - History History Provided By: Patient - Medical History Medical History: Medical History (Last Reviewed 07/06/18 @ 08:45 by Evita Engle) Congestive heart failure Type 2 diabetes mellitus - Surgical History Surgical History: Surgical History (Last Updated 07/07/18 @ 10:32 by AGUILAR Doll) History of cholecystectomy - Family History Family History: Family History (Last Updated 07/07/18 @ 16:32 by AGUILAR Doll) Son Autism Mother CHF (congestive heart failure) - Social History I have reviewed the patient's Social History: Yes - Tobacco History Second Hand Smoke Exposure: No Tobacco Use In Past 30 Days: No Smoking Status: Former smoker Tobacco Type: Cigarettes - Alcohol History How Often Do You Have a Drink Containing Alcohol: Monthly or less - Substance Use History Substance History: No History of Abuse - Travel History Recent Travel in the [place] Within the Last 8 Weeks: No Recent Travel Out of the Country Within the Last 8 Weeks: No - Immunization History Tetanus Immunization: Unsure Hx Influenza Vaccine This Season: No Medications and Allergies Active Medications: Active Medications Acetaminophen (Tylenol) 650 mg PO Q4H PRN PRN Reason: Temp > 100.4 Acetaminophen (Tylenol) 650 mg PO Q4H PRN PRN Reason: SEE LABEL COMMENTS Last Admin: 06/24/18 19:21 Dose: 650 mg Hydrocodone Bitart/Acetaminophen ([place] 7.5/325) 1 tab PO Q4H PRN PRN Reason: PAIN SCALE 6 TO 10 Last Admin: 07/06/18 17:57 Dose: 1 tab Al Hydroxide/Mg Hydroxide (Milk Of Isela Vanegasq) 30 ml PO Q12H PRN PRN Reason: Mild Constipation Albuterol (Duoneb Neb (Prn)) 1 ampul NEB Q4HR NEB PRN PRN Reason: sob Last Admin: 07/05/18 09:50 Dose: 1 ampul Bisacodyl (Dulcolax Supp) 10 mg RECTAL DAILY PRN PRN Reason: SEVERE CONSITIPATION Calcium Acetate (Phoslo) 1,334 mg PO TID [facility] Last Admin: 07/06/18 19:31 Dose: 1,334 mg Calcium Carbonate (Oscal) 500 mg PO BID [facility] Last Admin: 07/06/18 20:02 Dose: 500 mg Carvedilol (Coreg) 12.5 mg PO BID [facility] Last Admin: 07/07/18 08:59 Dose: Not Given Collagenase (Santyl Oint) 1 applicatio TOPICAL DAILY [facility] Last Admin: 07/06/18 11:02 Dose: 1 applicatio Collagenase (Santyl Oint) 1 applicatio TOPICAL DAILY [facility] Last Admin: 07/06/18 11:02 Dose: 1 applicatio Dextrose (D50w Vial) 50 ml IV.PUSH UNSCH PRN PRN Reason: PER HYPOGLYCEMIA PROTOCOL Last Admin: 07/07/18 07:30 Dose: 50 ml Diphenhydramine HCl (Benadryl) 25 mg PO Q4H PRN PRN Reason: SEE LABEL COMMENTS Last Admin: 06/24/18 19:22 Dose: 25 mg Famotidine (Pepcid) 20 mg PO BID [facility] Last Admin: 07/06/18 20:03 Dose: 20 mg Furosemide (Lasix Inj) 80 mg IV.PUSH BID [facility] Last Admin: 07/06/18 20:02 Dose: 80 mg Glucagon (Glucagon Inj) 1 mg OTHER UNSCH PRN PRN Reason: for Hypoglycemia Protocol Albumin Human (Buminate 5% Inj) 250 mls @ 250 mls/hr IV.SIG Q12H [facility] Last Admin: 07/07/18 08:59 Dose: Not Given Albumin Human (Alburx 5% Inj) 500 mls @ 250 mls/hr IV.SIG Q6H [facility] Stop: 07/07/18 19:44 Last Admin: 07/07/18 06:00 Dose: 250 mls/hr Sodium Chloride (Ns Inj) 1,000 mls @ 0 mls/hr IV.SIG BOLUS [facility] Stop: 07/08/18 23:31 Last Infusion: 07/07/18 03:00 Dose: Infused Midazolam HCl (Versed Inj) 50 mg in 50 mls @ 2 mls/hr IV.CONT TITRATE PRN; Protocol PRN Reason: Per Protocol Last Admin: 07/07/18 06:49 Dose: 2 mg/hr, 2 mls/hr Fentanyl (Fentanyl 10 Mcg/Ml Premix Drip) 2,500 mcg in 250 mls @ 5 mls/hr IV.SIG TITRATE PRN; Protocol PRN Reason: Per Protocol Last Admin: 07/07/18 02:00 Dose: 50 mcg/hr, 5 mls/hr Sodium Bicarbonate 150 meq/ (Sterile Water) 1,000 mls @ 150 mls/hr IV.CONT .Q6H40M [facility] Insulin Aspart (Novolog Insulin Correctional Sugar Inj) 0 unit SQ ACHS [facility]; Protocol Last Admin: 07/07/18 08:34 Dose: Not Given Lactulose (Lactulose Liq) 30 ml PO DAILY PRN PRN Reason: SEVERE CONSITIPATION Senna/Docusate Sodium (Bee-Colace) 1 tab PO BID [facility] Last Admin: 07/06/18 20:03 Dose: 1 tab Sennosides (Senokot) 17.2 mg PO Q12H PRN PRN Reason: Moderate Constipation Sodium Bicarbonate (Sodium Bicarbonate) 650 mg PO BID [facility] Last Admin: 07/06/18 20:02 Dose: 650 mg Sodium Chloride (Ns Flush) 2 ml IV.FLUSH BID [facility] Last Admin: 07/07/18 00:47 Dose: 2 ml Sodium Chloride (Ns Flush) 2 ml IV.FLUSH PRN PRN PRN Reason: FLUSH AFTER USING IV ACCESS Last Admin: 07/01/18 08:25 Dose: 2 ml Terbutaline Sulfate (Brethine Inj) 1 mg SQ UNSCH PRN PRN Reason: For Extravasation Vancomycin HCl (Vancomycin Po) 125 mg PO QID [facility] Stop: 07/15/18 12:59 Last Admin: 07/06/18 20:03 Dose: 125 mg Allergies Allergy/AdvReac Type Severity Reaction Status Date / Time No Known Allergies Allergy Unverified 06/02/18 15:19 Home Medications Medication Instructions Recorded Confirmed Type aspirin 81 mg PO DAILY 06/02/18 06/02/18 History atorvastatin [Lipitor] 40 mg PO DAILY 06/02/18 06/02/18 History bumetanide 2 mg PO DAILY 06/02/18 06/02/18 History carvedilol [Coreg] 25 mg PO BID 06/02/18 06/02/18 History chlorthalidone 25 mg PO DAILY 06/02/18 06/02/18 History folic acid 1 mg PO DAILY 06/02/18 06/02/18 History lisinopril 5 mg PO DAILY 06/02/18 06/02/18 History Advance Directives Advance Directives Date on File: 06/08/18 Healthcare Surrogate: Yes Health Care Surrogate Name and Number: Primary HCS: Janice Hernández Today's verbally stated goals: Patient is currently sedated and intubated on mechanical ventilation; he is unable to participate in establishment of medical treatment goals. Family/friends goals: Family will be arriving this evening 07/07/2018 and sometime tomorrow. They want everything to be done until they are able to get to the patient's bedside. Patient will remain and FULL CODE Physical Exam Vital Signs: Vital Signs - 24 hr 07/06/18 12:00 07/06/18 16:00 07/06/18 20:00 Temperature 98.0 F 98.1 F 98.7 F Pulse Rate 63 74 62 Respiratory Rate 18 18 17 Blood Pressure 122/78 124/76 114/64 Pulse Oximetry 100 100 94 L 07/06/18 23:20 07/07/18 00:00 07/07/18 00:51 Temperature 91.1 F L Pulse Rate 74 Respiratory Rate 18 20 18 Blood Pressure 139/106 H Pulse Oximetry 100 100 99 07/07/18 03:58 07/07/18 04:00 Temperature 93.3 F L Pulse Rate 57 L Respiratory Rate 18 18 Blood Pressure Pulse Oximetry 100 100 I&O: Intake & Output 07/05/18 07/06/18 07/07/18 07/08/18 06:59 06:59 06:59 06:59 Intake Total 442 / 442 970 / 970 4420 / 4420 Output Total 50 / 50 375 / 375 3800 / 3800 Balance 392 / 392 595 / 595 620 / 620 Weight 88.2 kg 99.4 kg Physical Exam: CONSTITUTIONAL/GENERAL: This is a middle-aged man who is currently sedated and intubated on mechanical ventilation TUBES/LINES/DRAINS: Right radial arterial line, right IJ central venous line, ETT, OGT, Walters catheter SKIN: Ecchymoses on upper extremities. No wounds seen anteriorly. Skin temperature appropriate. Not diaphoretic. HEAD: Atraumatic. Normocephalic. EYES: Pupils are dilated bilaterally. No scleral icterus. No injection or drainage. Fundi not examined. ENT: Unable to assess hearing nose without bleeding or purulent drainage. NECK: Trachea midline. Right IJ CVL in place CARDIOVASCULAR: Regular rate and rhythm without murmurs, gallops, or rubs. No JVD. Peripheral pulses symmetric. RESPIRATORY/CHEST: Intubated on vent. Breath sounds diminished, right greater than sign left. Bilateral rhonchi GASTROINTESTINAL: Abdomen soft, non-tender, nondistended. No hepato-splenomegaly , or palpable masses. No guarding. Bowel sounds present. GENITOURINARY: Without palpable bladder distension. Walters catheter in place. MUSCULOSKELETAL: Status post right BKA. Edema in upper and lower extremities bilaterally. LYMPHATICS: No palpable cervical or supraclavicular adenopathy. NEUROLOGICAL: Fixed and dilated pupils nonreactive, myoclonic jerks. Not breathing spontaneously over the set ventilator rate. PSYCHIATRIC: Unable to assess given unresponsiveness Diagnostic Tests Laboratory: Laboratory Results - last 72 hr 07/04/18 07/04/18 07/04/18 10:12 13:15 17:18 WBC RBC Hgb Hct MCV MCH MCHC RDW Plt Count MPV Prelim Diff (Auto) Neut % (Auto) Lymph % (Auto) Bow[place] % (Auto) Eos % (Auto) Baso % (Auto) Neut # (Auto) Lymph # (Auto) Bowman # (Auto) Eos # (Auto) Baso # (Auto) WBC Differential Seg Neuts % (Manual) Band Neuts % (Manual) Lymphocytes % (Manual) Monocytes % (Manual) Metamyelocytes % (Man) Abs Neuts (Manual) Differential Comment Toxic Granulation Platelet Estimate Platelet Morphology [place] Cells Keratocytes Hematology Comments PT INR APTT Fibrinogen Puncture Site Patient Temperature O2 Saturation ABG pH ABG pCO2 ABG pO2 ABG HCO3 ABG O2 Content ABG Base Excess ABG Methemoglobin Hemoglobin Carboxyhemoglobin O2 Delivery Device Vent Setting Inspired O2 Critical Value Sodium 134 L Potassium 6.2 H Chloride 106 Carbon Dioxide 21.4 Anion Gap 7 BUN 33 H Creatinine 1.77 H Estimated GFR 41 L POC Glucose 121 H 102 Random Glucose 80 Lactic Acid Calcium 7.7 L Prot Corrected Calcium Phosphorus Magnesium Total Bilirubin AST ALT Alkaline Phosphatase Troponin I Total Protein Albumin Urine Osmolality Ur Random Sodium Ur Random Potassium Pleural pH Pleural RBC Pleural Nuc Cells Pleural Neutrophils Pleural Lymphocytes Pleural Monocytes Pleural Eosinophils Pleural Mesothelial Pleural Fluid Comment Pleural Total Protein Pleural LDH Pleural Glucose Pleural Amylase Complement C3 Complement C4 Blood Type Antibody Screen 07/05/18 07/05/18 07/06/18 06:13 07:57 00:00 WBC RBC Hgb Hct MCV MCH MCHC RDW Plt Count MPV Prelim Diff (Auto) Neut % (Auto) Lymph % (Auto) [place] % (Auto) Eos % (Auto) Baso % (Auto) Neut # (Auto) Lymph # (Auto) Bow[place] # (Auto) Eos # (Auto) Baso # (Auto) WBC Differential Seg Neuts % (Manual) Band Neuts % (Manual) Lymphocytes % (Manual) Monocytes % (Manual) Metamyelocytes % (Man) Abs Neuts (Manual) Differential Comment Toxic Granulation Platelet Estimate Platelet Morphology [place] Cells Keratocytes Hematology Comments PT INR APTT Fibrinogen Puncture Site Patient Temperature O2 Saturation ABG pH ABG pCO2 ABG pO2 ABG HCO3 ABG O2 Content ABG Base Excess ABG Methemoglobin Hemoglobin Carboxyhemoglobin O2 Delivery Device Vent Setting Inspired O2 Critical Value Sodium 138 Potassium 6.1 H Chloride 104 Carbon Dioxide 29.1 Anion Gap 5 BUN 42 H Creatinine 1.90 H Estimated GFR 37 L POC Glucose 106 Random Glucose 86 Lactic Acid Calcium 7.4 L* Prot Corrected Calcium 7.9 L Phosphorus Magnesium Total Bilirubin AST ALT Alkaline Phosphatase Troponin I Total Protein 6.1 L Albumin Urine Osmolality 365 Ur Random Sodium Ur Random Potassium Pleural pH Pleural RBC Pleural Nuc Cells Pleural Neutrophils Pleural Lymphocytes Pleural Monocytes Pleural Eosinophils Pleural Mesothelial Pleural Fluid Comment Pleural Total Protein Pleural LDH Pleural Glucose Pleural Amylase Complement C3 Complement C4 Blood Type Antibody Screen 07/06/18 07/06/18 07/06/18 00:00 07:57 11:03 WBC RBC Hgb Hct MCV MCH MCHC RDW Plt Count MPV Prelim Diff (Auto) Neut % (Auto) Lymph % (Auto) Bowman % (Auto) Eos % (Auto) Baso % (Auto) Neut # (Auto) Lymph # (Auto) Bowman # (Auto) Eos # (Auto) Baso # (Auto) WBC Differential Seg Neuts % (Manual) Band Neuts % (Manual) Lymphocytes % (Manual) Monocytes % (Manual) Metamyelocytes % (Man) Abs Neuts (Manual) Differential Comment Toxic Granulation Platelet Estimate Platelet Morphology [place] Cells Keratocytes Hematology Comments PT INR APTT Fibrinogen Puncture Site Patient Temperature O2 Saturation ABG pH ABG pCO2 ABG pO2 ABG HCO3 ABG O2 Content ABG Base Excess ABG Methemoglobin Hemoglobin Carboxyhemoglobin O2 Delivery Device Vent Setting Inspired O2 Critical Value Sodium Potassium Chloride Carbon Dioxide Anion Gap BUN Creatinine Estimated GFR POC Glucose 52 L 143 H Random Glucose Lactic Acid Calcium Prot Corrected Calcium Phosphorus Magnesium Total Bilirubin AST ALT Alkaline Phosphatase Troponin I Total Protein Albumin Urine Osmolality Ur Random Sodium 51 Ur Random Potassium 47 Pleural pH Pleural RBC Pleural Nuc Cells Pleural Neutrophils Pleural Lymphocytes Pleural Monocytes Pleural Eosinophils Pleural Mesothelial Pleural Fluid Comment Pleural Total Protein Pleural LDH Pleural Glucose Pleural Amylase Complement C3 Complement C4 Blood Type Antibody Screen 07/06/18 07/06/18 07/06/18 13:36 13:36 19:56 WBC 9.2 RBC 3.33 L Hgb 10.5 L Hct 30.2 L MCV 90.8 MCH 31.7 MCHC 34.9 RDW 20.6 H Plt Count 168 D MPV 8.4 Prelim Diff (Auto) Neut % (Auto) 76.7 H Lymph % (Auto) 17.6 Bowman % (Auto) 5.2 Eos % (Auto) 0.1 Baso % (Auto) 0.4 Neut # (Auto) 7.0 Lymph # (Auto) 1.6 Bowman # (Auto) 0.5 Eos # (Auto) 0.0 Baso # (Auto) 0.0 WBC Differential . Seg Neuts % (Manual) Band Neuts % (Manual) Lymphocytes % (Manual) Monocytes % (Manual) Metamyelocytes % (Man) Abs Neuts (Manual) Differential Comment Auto diff final Toxic Granulation Platelet Estimate Platelet Morphology [place] Cells Keratocytes Hematology Comments PT INR APTT Fibrinogen Puncture Site Patient Temperature O2 Saturation ABG pH ABG pCO2 ABG pO2 ABG HCO3 ABG O2 Content ABG Base Excess ABG Methemoglobin Hemoglobin Carboxyhemoglobin O2 Delivery Device Vent Setting Inspired O2 Critical Value Sodium 138 Potassium 5.3 H D Chloride 105 Carbon Dioxide 26.3 Anion Gap 7 BUN 59 H Creatinine 2.17 H Estimated GFR 32 L POC Glucose 126 H Random Glucose 89 Lactic Acid Calcium 6.6 L* D Prot Corrected Calcium Phosphorus 8.1 H Magnesium Total Bilirubin AST ALT Alkaline Phosphatase Troponin I Total Protein Albumin 1.3 L Urine Osmolality Ur Random Sodium Ur Random Potassium Pleural pH Pleural RBC Pleural Nuc Cells Pleural Neutrophils Pleural Lymphocytes Pleural Monocytes Pleural Eosinophils Pleural Mesothelial Pleural Fluid Comment Pleural Total Protein Pleural LDH Pleural Glucose Pleural Amylase Complement C3 75 L Complement C4 20 Blood Type Antibody Screen 07/07/18 07/07/18 07/07/18 00:30 00:30 00:30 WBC 10.1 RBC 2.96 L Hgb 9.5 L Hct 27.1 L MCV 91.6 MCH 32.0 MCHC 35.0 RDW 20.5 H Plt Count 216 MPV 8.0 Prelim Diff (Auto) Slide review pending Neut % (Auto) 73.3 H Lymph % (Auto) 23.3 Bowman % (Auto) 2.9 Eos % (Auto) 0.1 Baso % (Auto) 0.4 Neut # (Auto) 7.4 Lymph # (Auto) 2.3 Bowman # (Auto) 0.3 Eos # (Auto) 0.0 Baso # (Auto) 0.0 WBC Differential Manual diff final Seg Neuts % (Manual) 58 Band Neuts % (Manual) 13 H Lymphocytes % (Manual) 25 Monocytes % (Manual) 3 Metamyelocytes % (Man) 1 Abs Neuts (Manual) 7.3 Differential Comment . Toxic Granulation 1+ H Platelet Estimate Normal Platelet Morphology Normal [place] Cells 1+ H Keratocytes Occ H Hematology Comments PT INR APTT Fibrinogen Puncture Site Patient Temperature O2 Saturation ABG pH ABG pCO2 ABG pO2 ABG HCO3 ABG O2 Content ABG Base Excess ABG Methemoglobin Hemoglobin Carboxyhemoglobin O2 Delivery Device Vent Setting Inspired O2 Critical Value Sodium Potassium Chloride Carbon Dioxide Anion Gap BUN Creatinine Estimated GFR POC Glucose Random Glucose Lactic Acid 2.8 H Calcium Prot Corrected Calcium Phosphorus Magnesium Total Bilirubin AST ALT Alkaline Phosphatase Troponin I Less than 0.02 L Total Protein Albumin Urine Osmolality Ur Random Sodium Ur Random Potassium Pleural pH Pleural RBC Pleural Nuc Cells Pleural Neutrophils Pleural Lymphocytes Pleural Monocytes Pleural Eosinophils Pleural Mesothelial Pleural Fluid Comment Pleural Total Protein Pleural LDH Pleural Glucose Pleural Amylase Complement C3 Complement C4 Blood Type Antibody Screen 10/07/07/18 07/07/18 00:30 00:30 00:30 WBC RBC Hgb Hct MCV MCH MCHC RDW Plt Count MPV Prelim Diff (Auto) Neut % (Auto) Lymph % (Auto) [place] % (Auto) Eos % (Auto) Baso % (Auto) Neut # (Auto) Lymph # (Auto) [place] # (Auto) Eos # (Auto) Baso # (Auto) WBC Differential Seg Neuts % (Manual) Band Neuts % (Manual) Lymphocytes % (Manual) Monocytes % (Manual) Metamyelocytes % (Man) Abs Neuts (Manual) Differential Comment Toxic Granulation Platelet Estimate Platelet Morphology [place] Cells Keratocytes Hematology Comments PT 21.6 H INR 2.1 APTT 30.8 H Fibrinogen 132 L Puncture Site Patient Temperature O2 Saturation ABG pH ABG pCO2 ABG pO2 ABG HCO3 ABG O2 Content ABG Base Excess ABG Methemoglobin Hemoglobin Carboxyhemoglobin O2 Delivery Device Vent Setting Inspired O2 Critical Value Sodium 142 Potassium 5.0 Chloride 103 Carbon Dioxide 32.5 H Anion Gap 7 BUN 64 H Creatinine 2.31 H Estimated GFR 30 L POC Glucose Random Glucose 75 Lactic Acid Calcium 6.8 L* Prot Corrected Calcium 7.9 L Phosphorus 8.3 H Magnesium 2.2 Total Bilirubin 0.5 AST 425 H ALT 208 H Alkaline Phosphatase 249 H Troponin I Total Protein 5.0 L D Albumin 1.3 L Urine Osmolality Ur Random Sodium Ur Random Potassium Pleural pH Pleural RBC Pleural Nuc Cells Pleural Neutrophils Pleural Lymphocytes Pleural Monocytes Pleural Eosinophils Pleural Mesothelial Pleural Fluid Comment Pleural Total Protein Pleural LDH Pleural Glucose Pleural Amylase Complement C3 Complement C4 Blood Type O Negative Antibody Screen Negative 07/07/18 07/07/18 07/07/18 03:02 03:10 06:20 WBC RBC Hgb Hct MCV MCH MCHC RDW Plt Count MPV Prelim Diff (Auto) Neut % (Auto) Lymph % (Auto) [place] % (Auto) Eos % (Auto) Baso % (Auto) Neut # (Auto) Lymph # (Auto) [place] # (Auto) Eos # (Auto) Baso # (Auto) WBC Differential Seg Neuts % (Manual) Band Neuts % (Manual) Lymphocytes % (Manual) Monocytes % (Manual) Metamyelocytes % (Man) Abs Neuts (Manual) Differential Comment Toxic Granulation Platelet Estimate Platelet Morphology [place] Cells Keratocytes Hematology Comments PT INR APTT Fibrinogen Puncture Site Art line Patient Temperature 98.6 O2 Saturation 98 ABG pH 7.50 H ABG pCO2 33 L ABG pO2 255 H ABG HCO3 25 ABG O2 Content 10.7 L ABG Base Excess 1.9 ABG Methemoglobin 1.1 Hemoglobin 7.3 L* Carboxyhemoglobin 1.5 O2 Delivery Device Ventilator Vent Setting See comment Inspired O2 100 Critical Value Yes Sodium 142 Potassium 4.7 Chloride 107 Carbon Dioxide 26.9 Anion Gap 8 BUN 63 H Creatinine 2.14 H Estimated GFR 33 L POC Glucose Random Glucose 58 L Lactic Acid Calcium 6.1 L* Prot Corrected Calcium 7.3 L* Phosphorus Magnesium Total Bilirubin 0.8 AST 361 H ALT 164 H Alkaline Phosphatase 210 H Troponin I Less than 0.02 L Total Protein 4.6 L Albumin 1.4 L Urine Osmolality Ur Random Sodium Ur Random Potassium Pleural pH 8.5 Pleural RBC Pleural Nuc Cells Pleural Neutrophils Pleural Lymphocytes Pleural Monocytes Pleural Eosinophils Pleural Mesothelial Pleural Fluid Comment Pleural Total Protein 1.1 Pleural LDH 70 Pleural Glucose 74 Pleural Amylase 10 Complement C3 Complement C4 Blood Type Antibody Screen 07/07/18 07/07/18 07/07/18 06:20 07:27 07:30 WBC RBC Hgb Hct MCV MCH MCHC RDW Plt Count MPV Prelim Diff (Auto) Neut % (Auto) Lymph % (Auto) [place] % (Auto) Eos % (Auto) Baso % (Auto) Neut # (Auto) Lymph # (Auto) [place] # (Auto) Eos # (Auto) Baso # (Auto) WBC Differential Seg Neuts % (Manual) Band Neuts % (Manual) Lymphocytes % (Manual) Monocytes % (Manual) Metamyelocytes % (Man) Abs Neuts (Manual) Differential Comment Toxic Granulation Platelet Estimate Platelet Morphology Heriberto Cells Keratocytes Hematology Comments PT INR APTT Fibrinogen Puncture Site Patient Temperature O2 Saturation ABG pH ABG pCO2 ABG pO2 ABG HCO3 ABG O2 Content ABG Base Excess ABG Methemoglobin Hemoglobin Carboxyhemoglobin O2 Delivery Device Vent Setting Inspired O2 Critical Value Sodium Potassium Chloride Carbon Dioxide Anion Gap BUN Creatinine Estimated GFR POC Glucose 59 L Random Glucose Lactic Acid Calcium Prot Corrected Calcium Phosphorus Magnesium Total Bilirubin AST ALT Alkaline Phosphatase Troponin I Less than 0.02 L Total Protein Albumin Urine Osmolality Ur Random Sodium Ur Random Potassium Pleural pH Pleural RBC 112 H Pleural Nuc Cells 19 H Pleural Neutrophils 20 Pleural Lymphocytes 66 Pleural Monocytes 4 Pleural Eosinophils 4 Pleural Mesothelial 6 Pleural Fluid Comment Pleural Total Protein Pleural LDH Pleural Glucose Pleural Amylase Complement C3 Complement C4 Blood Type Antibody Screen 07/07/18 07:47 WBC RBC Hgb Hct MCV MCH MCHC RDW Plt Count MPV Prelim Diff (Auto) Neut % (Auto) Lymph % (Auto) [place] % (Auto) Eos % (Auto) Baso % (Auto) Neut # (Auto) Lymph # (Auto) [place] # (Auto) Eos # (Auto) Baso # (Auto) WBC Differential Seg Neuts % (Manual) Band Neuts % (Manual) Lymphocytes % (Manual) Monocytes % (Manual) Metamyelocytes % (Man) Abs Neuts (Manual) Differential Comment Toxic Granulation Platelet Estimate Platelet Morphology [place] Cells Keratocytes Hematology Comments PT INR APTT Fibrinogen Puncture Site Patient Temperature O2 Saturation ABG pH ABG pCO2 ABG pO2 ABG HCO3 ABG O2 Content ABG Base Excess ABG Methemoglobin Hemoglobin Carboxyhemoglobin O2 Delivery Device Vent Setting Inspired O2 Critical Value Sodium Potassium Chloride Carbon Dioxide Anion Gap BUN Creatinine Estimated GFR POC Glucose 131 H Random Glucose Lactic Acid Calcium Prot Corrected Calcium Phosphorus Magnesium Total Bilirubin AST ALT Alkaline Phosphatase Troponin I Total Protein Albumin Urine Osmolality Ur Random Sodium Ur Random Potassium Pleural pH Pleural RBC Pleural Nuc Cells Pleural Neutrophils Pleural Lymphocytes Pleural Monocytes Pleural Eosinophils Pleural Mesothelial Pleural Fluid Comment Pleural Total Protein Pleural LDH Pleural Glucose Pleural Amylase Complement C3 Complement C4 Blood Type Antibody Screen Result Diagrams: 07/07/18 00:30 07/07/18 11:30 Microbiology: Microbiology 06/02/18 18:48 Wound - Foot Acid Fast Bacilli Smear - Final No acid fast bacilli seen 06/02/18 18:48 Wound - Foot Mycobacterial Culture - Preliminary No growth in 5 weeks 07/07/18 06:20 Fluid - Pleural fluid Gram Stain - Final 06/17/18 12:07 Wound - Leg Fungal Smear - Final No fungal elements seen 06/17/18 12:07 Wound - Leg Fungal Culture - Preliminary No growth in 2 weeks 06/17/18 12:07 Wound - Leg Acid Fast Bacilli Smear - Final No acid fast bacilli seen 06/17/18 12:07 Wound - Leg Mycobacterial Culture - Preliminary No growth in 2 weeks 06/17/18 12:07 Wound - Leg Gram Stain - Final 06/17/18 12:07 Wound - Leg Wound Culture - Final No growth in 72 hours (aerobically and anaerobically ) 06/02/18 18:48 Wound - Foot Fungal Smear - Final No fungal elements seen 06/02/18 18:48 Wound - Foot Fungal Culture - Final No growth in 1 week 06/02/18 18:48 Wound - Foot Gram Stain - Final 06/02/18 18:48 Wound - Foot Wound Culture - Final Escherichia coli S. aureus MRSA Mixed Anaerobes 06/05/18 15:13 Stool Clostridium difficile GDH Antigen - Final Positive - C. difficile Antigen detected. 06/05/18 15:13 Stool Clostridium difficile Toxin Assay - Final Negative - No C. difficile Toxin A or B detected. 06/02/18 17:15 Wound - Foot Gram Stain - Final 06/02/18 17:15 Wound - Foot Wound Culture - Final Escherichia coli Alcaligenes species S. aureus MRSA 06/02/18 16:25 Blood - Peripheral Aerobic Blood Culture - Final Escherichia coli 06/02/18 16:25 Blood - Peripheral Anaerobic Blood Culture - Final gram negative rods 06/02/18 16:20 Blood - Peripheral Aerobic Blood Culture - Final Escherichia coli 06/02/18 16:20 Blood - Peripheral Anaerobic Blood Culture - Final Escherichia coli Imaging: Venous Doppler Study 06/02/18 15:46 CONCLUSION: 1. No sonographic evidence of lower extremity DVT. 2. Bilateral lower extremity subcutaneous edema. 3. Multiple lymph nodes seen in both groins, some of which are abnormally enlarged. Recommend clinical correlation. Foot X-Ray 06/02/18 15:52 CONCLUSION: Extensive subcutaneous air. No bone fracture or dislocation Abdomen/Bladder Ultrasound 07/05/18 00:00 CONCLUSION: 1. Increased cortical echogenicity in both kidneys suggesting medical renal disease 2. Multiple nonobstructing calculi in the collecting system of the right kidney. The largest in the midpole measures 5 mm. 3. There appear to be 2 renal cortical cyst in the left kidney, one in the upper pole and the larger, 1.7 cm lesion in the lower pole. 4. Lateral to the left kidney, there is a hypoechoic but heterogeneous 6.7 x 4.0 x 3.8 cm lesion which appears to be discrete from the kidney itself. This area contains internal vascularity and is concerning for a possible mass lesion. CT scan of the abdomen with IV and oral contrast is recommended for further characterization. 5. Urinary bladder is decompressed with a Walters catheter. Chest X-Ray 07/07/18 06:02 CONCLUSION: Suspected bilateral pleural effusions being worse on the right. Increased density in the mid and lower lungs likely related to atelectasis or consolidation in these regions. Cardiomegaly. Procedures: 06/02/2018: Endotracheal intubation 06/02/2018: Left radial arterial line placement 06/02/2018: Left subclavian central line placement 06/03/2018 Right BKA 06/04/2018: Extubation 07/07/2018: Endotracheal intubation 07/07/2018: Right arterial line placement 07/07/2018: Right IJ central line placement 07/07/2018: Left-sided chest tube placed Patient/Family Conference Present at Family Conference: Spoke with patient's ex- (Krystle), who is listed as the primary contact, via telephone. Later spoke to patient's designated healthcare surrogate, Gabriella Hernández, who lives in [place]. Family Conference Location: Telephone Issues Discussed: * Palliative care role, purpose, approach * Additional medical, psychosocial, and spiritual history * Patients general health, functional status, and cognitive changes in the months leading up to the current hospitalization * Patient/family understanding of the current medical problems * Patient/family understanding of prognosis * Patients goals of care as best understood from advance directives and/or conversations and/or values * Current medical treatment options and benefits/burdens of those options * Likely scenarios comparing ongoing aggressive care with a transition to comfort measures only * Questions answered to the best of my ability * Palliative care contact information provided Assessment and Plan Pertinent Non-Medical Issues: Psychosocial: Patient was born in [place], [place]. He currently lives in [place], [place]. He is currently ; he was to his ex- ( Krystle) for approximately 21 years. Together they had 2 sons. Guillermo is 27 years old and has autism. Mikhail is 21 years old. Spiritual: Patient was raised in the [place] Legal: Healthcare surrogate designation form completed on 06/08/2018. Document are accessible in the patient's chart; copy faxed to HIM to be scanned into the patient's EMR Ethical issues impacting care: No known ethical issues impacting care at this time Important Contacts: Janice Hernández, friends/HCS: [phone] Krystle Hill, ex-: [phone] Ron Harris, friend: [phone] Prognosis: Patient remains critically ill with hemodynamic instability and dependence on mechanical ventilation. There appears to have been a severe anoxic brain injury and the presence of discoordinated myoclonic activity. Code Status: Full Code Plan: * FULL CODE * Patient is unable to participate in medical decision making given his level of responsiveness. Healthcare surrogate designation form completed on 06/08/2018 identifying the patient's friend, Gabriella Hernández, as his medical decision maker . * HCS designation are accessible in the patient's chart; a copy of the document was faxed to HIM to be scanned into the patient's EMR * Patient's ex- and 2 adult children will be arriving in [place] later today. Patient's friends will be coming to [place] from [place] sometime tomorrow afternoon. The family/friends request that everything be done to keep the patient alive until they arrive. GOALS REMAIN AGGRESSIVE pending further conversations * Discussed patient with Dr. Rivera and RN, Ivelisse. * Palliative care was able to speak to the patient's ex- (Krystle) and his friend/HCS (Gabriella) via telephone. Palliative care contact information was provided. * Symptom management: Pain: Multifactoral. Potential causes of pain include recent cardiopulmonary resuscitation, invasive lines, back pain, chronic knee pain, recent BKA immobility etc. Patient is currently sedated on fentanyl and Versed drips. Prior to recent cardiac arrest patient was controlling pain with [place] 7.5/325 every 4 hours PRN. Patient was receiving approximately 4 doses in a 24-hour period. We will continue to monitor and make recommendations as indicated. Altered mental status: Patient was showing signs of anoxic brain injury status post cardiac arrest yesterday 07/06/2018. Not a candidate for therapeutic hypothermia due to sepsis and C. difficile colitis. Pupils dilated at 8 mm and occasional myoclonic jerking was noted. We will continue to monitor. EEG pending. * Palliative care will continue to follow this patient throughout his hospitalization to establish trust, assist with symptom management and clarification of medical treatment goals. Appreciation Thank you for the opportunity to participate in the care of Tahir Dexter. Attestation Attestation: To help prompt me to consider important information that might be impacting today's encounter and assessment, information from prior notes written by myself or my colleagues may have been "brought forward" into today's note. My signature on this note, however, is an attestation that I personally performed the exam, history, and/or decision-making noted today, and, unless otherwise indicated, the interactions with patient, family, and staff as well as the review of records all occurred today. I also attest that the listed assessment and stated plan reflect my best clinical judgment today based on the combination of historical information, prior notes, and today's exam/ interactions. When time spent is documented, it refers only to time spent today by the signer, or if indicated, combined time spent today by collaborating physician/nurse practitioner.
[2018-07-07 12:37] LABS: ABG Base Excess 2.9 mmol/L (-2-2); ABG PCO2 42 mmHg (38-42); ABG PO2 90 mmHg (61-120)
[2018-07-07 13:12] LABS: Alanine Aminotransferase 125 U/L (12-78); Albumin 1.6 g/dL (3.4-5.0); Alkaline Phosphatase 197 U/L (45-117); Anion Gap 7 meq/L (5-15); Aspartate Aminotransferase 241 U/L (15-37); Blood Urea Nitrogen 64 mg/dL (7-18); Calcium 6.1 mg/dL (8.5-10.1); Carbon Dioxide 29.6 meq/L (21.0-32.0); Chloride 106 meq/L (98-107); Glomerular Filtration Rate 32 mL/min (>89); Glucose,Random 63 mg/dL (74-106); Magnesium 2.1 mg/dL (1.5-2.5); Phosphorus 7.2 mg/dL (2.5-4.9); Potassium 4.7 meq/L (3.5-5.1); Sodium 143 meq/L (136-145); Total Protein 4.6 g/dL (6.4-8.2)
--- NOTE | 2018-07-07 15:46 | ECG ---
Date Performed: 07/07/2018 Time Performed: 02:01:52 PTAGE: 53 years EKG: Marked baseline artifact PROBABLE Sinus rhythm . Prolonged QT interval Possible anterior infarct - age undetermined Nonspecific T wave changes Low Q RS voltages in limb leads Abnormal ECG I do not see definite changes although both EKGs have signific ant artifact. PREVIOUS TRACING : 07/05/2018 12.29 DOCTOR: Cole Suhltz Interpretating Date/Time 07/07/2018 15:46:39
--- NOTE | 2018-07-07 15:46 | ECG ---
Date Performed: 07/07/2018 Time Performed: 08:06:46 PTAGE: 53 years EKG: Marked baseline artifact Sinus rhythm with 1st degree A-V block. I would repeat EKG Abnormal ECG PREVIOUS TRACING : 07/07/2018 02.01 DOCTOR: Cole Shultz Interpretating Date/Time 07/07/2018 15:45:51
--- NOTE | 2018-07-07 16:29 | P.DIET ---
Nutritional Evaluation Type of nutrition evaluation: initial Nutrition consult regarding: Tube Feeding Screening comments: Transferred to [facility] after code blue yesterday. Objective - Diagnosis R foot gangrene, CHF exacerbation, YOLY - Objective Part of Body Amputated: Right below knee (6%) % IBW: 131 (IBW = 167#) Body Weight Used for Calculations: IBW (75.9 kg) Energy Needs - Lower Range (kCal/kg): 28 Energy Needs - Upper Range (kCal/kg): 32 Lower Limit kCal/kg (kCals): 2,125 Upper Limit kCal/kg (kCals): 2,429 Lower Limit Protein Factor (Grams per Kg): 1.0 Upper Limit Protein Factor (Grams per Kg): 1.5 Lower Protein Needs (Protein): 76 Upper Protein Needs (Protein): 114 Dietitian Reviewed in Medical Record: Curent medications, Intake & Output, Labs , Medical history, Tube feeding Diet Order: NPO Objective Comments: 06/03 R BKA 06/24 wound closure (+) C Diff Labs: HgA1c 7.5, glu 59, BUN/creat 63/2.14, Est GFR 33 Assessment Assessment: Pt is now intubated and needs TFing to meet nutritional needs. Current order is for Nepro @ 35 mls/hr. Please note that Nepro is formulated for pts on dialysis. Recommend Glucerna 1.5 @ 60 mls/hr to provide 2160 kcals, 119 gms protein and 1093 mls of free water Recommendations: Glucerna 1.5 @ 60 mls/hr goal Dietitian to Monitor: Lab values, Intake & Output, Tube feeding tolerance, Weight change, Medical course
[2018-07-07] MEDS: Bumetanide Inj 25 MG/100 ML BAG IV.CONT SCH (18:53)
--- NOTE | 2018-07-07 19:53 | P.PNADD ---
Addendum to Inpatient Note Additional information: pt seen around 1200 full note to follow
--- NOTE | 2018-07-07 23:19 | P.PNID ---
Subjective Remarks: events noted pt was transfered ICU for resp distress where he coded twice He is intubated, on vent He remains unresponsive. On low dose vasopressor support WBC 10K with bandemia 13 % Large R sided effusion identified on CXR and CT was placed Antibiotics: Vanco po Past Medical History: Congestive heart failure Type 2 diabetes mellitus Cholecystectomy Allergies/Adverse Reactions: Allergies No Known Allergies Allergy (Unverified 06/02/18 15:19) Objective Vital Signs 07/06/18 23:20 07/07/18 00:00 07/07/18 00:11 Temperature 91.1 F L Pulse Rate 74 72 Respiratory Rate 18 20 14 Blood Pressure 139/106 H 126/103 H Pulse Oximetry 100 100 100 07/07/18 00:16 07/07/18 00:21 07/07/18 00:26 Temperature Pulse Rate 70 69 68 Respiratory Rate 18 18 24 Blood Pressure 129/98 H 114/87 117/89 Pulse Oximetry 100 100 100 07/07/18 00:31 07/07/18 00:36 07/07/18 00:41 Temperature Pulse Rate 69 69 69 Respiratory Rate 20 23 16 Blood Pressure 121/91 H 130/76 121/89 Pulse Oximetry 100 100 100 07/07/18 00:46 07/07/18 00:51 07/07/18 00:56 Temperature Pulse Rate 68 68 70 Respiratory Rate 21 17 18 Blood Pressure 105/84 130/92 H 125/91 H Pulse Oximetry 100 99 100 07/07/18 01:00 07/07/18 01:01 07/07/18 01:09 Temperature Pulse Rate 69 69 68 Respiratory Rate 17 18 18 Blood Pressure 117/89 Pulse Oximetry 100 100 07/07/18 01:11 07/07/18 01:16 07/07/18 01:21 Temperature Pulse Rate 65 Respiratory Rate Blood Pressure 110/84 109/82 105/83 Pulse Oximetry 100 07/07/18 02:00 07/07/18 03:00 07/07/18 03:58 Temperature Pulse Rate 61 56 L Respiratory Rate 17 27 H 18 Blood Pressure Pulse Oximetry 100 100 100 07/07/18 04:00 07/07/18 05:00 07/07/18 06:00 Temperature 93.3 F L Pulse Rate 57 L 59 L 62 Respiratory Rate 18 18 18 Blood Pressure Pulse Oximetry 100 100 100 07/07/18 07:00 07/07/18 08:00 07/07/18 09:00 Temperature 95.4 F L 95.9 F L Pulse Rate 68 68 68 Respiratory Rate 18 12 18 Blood Pressure Pulse Oximetry 100 100 100 07/07/18 10:00 07/07/18 10:20 07/07/18 11:00 Temperature 96.6 F L 97.3 F L Pulse Rate 69 70 Respiratory Rate 18 18 14 Blood Pressure Pulse Oximetry 95 91 L 99 07/07/18 11:37 07/07/18 11:41 07/07/18 11:54 Temperature 97.9 F 97.7 F 97.9 F Pulse Rate 58 L 73 71 Respiratory Rate 19 26 H 13 Blood Pressure 46/30 L 64/44 L 85/51 L Pulse Oximetry 98 96 100 07/07/18 12:00 07/07/18 13:00 07/07/18 14:00 Temperature 97.9 F 97.9 F 98.2 F Pulse Rate 72 70 72 Respiratory Rate 13 14 12 Blood Pressure 79/51 L Pulse Oximetry 98 100 100 07/07/18 15:00 07/07/18 16:00 07/07/18 17:28 Temperature 98.8 F 99.3 F Pulse Rate 70 71 Respiratory Rate 12 12 12 Blood Pressure Pulse Oximetry 100 100 100 07/07/18 18:00 07/07/18 20:00 07/07/18 22:59 Temperature 99.1 F Pulse Rate 72 70 Respiratory Rate 12 12 Blood Pressure Pulse Oximetry 100 100 Intake & Output 07/07/18 07/07/18 07/08/18 06:59 18:59 06:59 Intake Total 3750 / 3750 3500 / 3500 300 / 300 Output Total 3350 / 3350 675 / 675 Balance 400 / 400 2825 / 2825 300 / 300 Weight 99.4 kg Intake: IV 3750 / 3750 3500 / 3500 300 / 300 Versed Inj 50 mg In 50 ml @ 2 50 / 50 MG/HR 2 mls/hr IV.CONT TITRATE PRN Rx#:[id number] Sodium Bicarbonate 8.4% Inj 150 2000 / 2000 MEQ In Sterile Water for Inj 850 ML @ 150 mls/hr IV.CONT . Q6H40M [facility] Rx#:[id number] Buminate 5% Inj 250 ML @ 250 250 / 250 250 / 250 mls/hr IV.SIG Q12H LINDA Rx#: [id number] Alburx 5% Inj 500 ML @ 250 mls/ 500 / 500 1500 / 1500 hr IV.SIG Q6H LINDA Rx#:[id number] NS Inj 1,000 ML @ Wide Open IV. 3000 / 3000 SIG BOLUS LINDA Rx#:[id number] Output: Stool 0 / 0 Urine Amount (Catheter) 100 / 100 200 / 200 Indwelling Urethral Catheter 100 / 100 200 / 200 Gastric Drainage 75 / 75 Orogastric Tube 75 / 75 Chest Tube Drainage 3250 / 3250 400 / 400 Right 3250 / 3250 400 / 400 Other: Mode Setting R BKA stump Continuous Date of Last Bowel Movement 07/06/18 07/06/18 06/02/18 18:48 Wound - Foot Acid Fast Bacilli Smear - Final No acid fast bacilli seen 06/02/18 18:48 Wound - Foot Mycobacterial Culture - Preliminary No growth in 5 weeks 07/07/18 06:20 Fluid - Pleural fluid Gram Stain - Final 07/07/18 06:20 Fluid - Pleural fluid Body Fluid Culture - Pending Lab - Hematology Results 07/06/18 07/07/18 13:36 00:30 WBC 9.2 10.1 RBC 3.33 L 2.96 L Hgb 10.5 L 9.5 L Hct 30.2 L 27.1 L MCV 90.8 91.6 MCH 31.7 32.0 MCHC 34.9 35.0 RDW 20.6 H 20.5 H Plt Count 168 D 216 MPV 8.4 8.0 Prelim Diff (Auto) Slide review pending Neut % (Auto) 76.7 H 73.3 H Lymph % (Auto) 17.6 23.3 [place] % (Auto) 5.2 2.9 Eos % (Auto) 0.1 0.1 Baso % (Auto) 0.4 0.4 Neut # (Auto) 7.0 7.4 Lymph # (Auto) 1.6 2.3 [place] # (Auto) 0.5 0.3 Eos # (Auto) 0.0 0.0 Baso # (Auto) 0.0 0.0 WBC Differential . Manual diff final Seg Neuts % (Manual) 58 Band Neuts % (Manual) 13 H Lymphocytes % (Manual) 25 Monocytes % (Manual) 3 Metamyelocytes % (Man) 1 Abs Neuts (Manual) 7.3 Differential Comment Auto diff final . Toxic Granulation 1+ H Platelet Estimate Normal Platelet Morphology Normal Heriberto Cells 1+ H Keratocytes Occ H Hematology Comments Lab - Chemistry Results 07/06/18 07/06/18 07/06/18 07:57 11:03 13:36 Sodium 138 Potassium 5.3 H D Chloride 105 Carbon Dioxide 26.3 Anion Gap 7 BUN 59 H Creatinine 2.17 H Estimated GFR 32 L POC Glucose 52 L 143 H Random Glucose 89 Lactic Acid Calcium 6.6 L* D Prot Corrected Calcium Phosphorus 8.1 H Magnesium Total Bilirubin AST ALT Alkaline Phosphatase Troponin I Total Protein Albumin 1.3 L 07/06/18 07/07/18 07/07/18 19:56 00:30 00:30 Sodium Potassium Chloride Carbon Dioxide Anion Gap BUN Creatinine Estimated GFR POC Glucose 126 H Random Glucose Lactic Acid 2.8 H Calcium Prot Corrected Calcium Phosphorus Magnesium Total Bilirubin AST ALT Alkaline Phosphatase Troponin I Less than 0.02 L Total Protein Albumin 07/07/18 07/07/18 07/07/18 00:30 03:10 07:27 Sodium 142 142 Potassium 5.0 4.7 Chloride 103 107 Carbon Dioxide 32.5 H 26.9 Anion Gap 7 8 BUN 64 H 63 H Creatinine 2.31 H 2.14 H Estimated GFR 30 L 33 L POC Glucose 59 L Random Glucose 75 58 L Lactic Acid Calcium 6.8 L* 6.1 L* Prot Corrected Calcium 7.9 L 7.3 L* Phosphorus 8.3 H Magnesium 2.2 Total Bilirubin 0.5 0.8 AST 425 H 361 H ALT 208 H 164 H Alkaline Phosphatase 249 H 210 H Troponin I Less than 0.02 L Total Protein 5.0 L D 4.6 L Albumin 1.3 L 1.4 L 07/07/18 07/07/18 07/07/18 07:30 07:47 11:15 Sodium Potassium Chloride Carbon Dioxide Anion Gap BUN Creatinine Estimated GFR POC Glucose 131 H 75 Random Glucose Lactic Acid Calcium Prot Corrected Calcium Phosphorus Magnesium Total Bilirubin AST ALT Alkaline Phosphatase Troponin I Less than 0.02 L Total Protein Albumin 07/07/18 07/07/18 07/07/18 11:30 16:10 16:33 Sodium 143 Potassium 4.7 Chloride 106 Carbon Dioxide 29.6 Anion Gap 7 BUN 64 H Creatinine 2.17 H Estimated GFR 32 L POC Glucose 54 L 122 H Random Glucose 63 L Lactic Acid Calcium 6.1 L* Prot Corrected Calcium 7.3 L* Phosphorus 7.2 H D Magnesium 2.1 Total Bilirubin 0.7 AST 241 H ALT 125 H Alkaline Phosphatase 197 H Troponin I Less than 0.02 L Total Protein 4.6 L Albumin 1.6 L 07/07/18 07/07/18 21:29 21:47 Sodium Potassium Chloride Carbon Dioxide Anion Gap BUN Creatinine Estimated GFR POC Glucose 39 L* 88 Random Glucose Lactic Acid Calcium Prot Corrected Calcium Phosphorus Magnesium Total Bilirubin AST ALT Alkaline Phosphatase Troponin I Total Protein Albumin Imaging: ITS Impressions Venous Doppler Study 06/02/18 15:46 CONCLUSION: 1. No sonographic evidence of lower extremity DVT. 2. Bilateral lower extremity subcutaneous edema. 3. Multiple lymph nodes seen in both groins, some of which are abnormally enlarged. Recommend clinical correlation. Foot X-Ray 06/02/18 15:52 CONCLUSION: Extensive subcutaneous air. No bone fracture or dislocation Abdomen/Bladder Ultrasound 07/05/18 00:00 CONCLUSION: 1. Increased cortical echogenicity in both kidneys suggesting medical renal disease 2. Multiple nonobstructing calculi in the collecting system of the right kidney. The largest in the midpole measures 5 mm. 3. There appear to be 2 renal cortical cyst in the left kidney, one in the upper pole and the larger, 1.7 cm lesion in the lower pole. 4. Lateral to the left kidney, there is a hypoechoic but heterogeneous 6.7 x 4.0 x 3.8 cm lesion which appears to be discrete from the kidney itself. This area contains internal vascularity and is concerning for a possible mass lesion. CT scan of the abdomen with IV and oral contrast is recommended for further characterization. 5. Urinary bladder is decompressed with a Walters catheter. Chest X-Ray 07/07/18 06:02 CONCLUSION: Suspected bilateral pleural effusions being worse on the right. Increased density in the mid and lower lungs likely related to atelectasis or consolidation in these regions. Cardiomegaly. Physical Exam: GENERAL: , NAD SKIN: Warm and dry. No rash HEAD: Atraumatic. Normocephalic. EYES: Pupils equal and round. No scleral icterus. No injection or drainage. ENT: No nasal bleeding or discharge. Mucous membranes pink and moist. NECK: No JVD. CARDIOVASCULAR: Regular rate and rhythm. RESPIRATORY: No accessory muscle use. Clear to auscultation. Breath sounds decreased bilaterally. CT in place with seorus fairly cleart fluid GASTROINTESTINAL: Abdomen soft, non-tender, not distended. MUSCULOSKELETAL: Extremities without clubbing, cyanosis, + resolution of most edema sp RLE p BKA with dressing in place, dry and clean NEUROLOGICAL: unresponsive PSYCHIATRIC: unable toassess Assessment and Plan - Plan Impression Sepsis, E coli - resolved Gas gangrene RLE, S/P guillotine amputation RBKA, C/S polymicrobial path from amputation revision showed no osteo life treatening severe R foot DFI Gas gangrene R foot, polimicrobial mixed aerobic/anaerobic infx, including MRSA Acutre VDRF- resolved ARF - resolved C difficile colitis: resolving Sp code on 07/07 Large R side pleural effusion, probably trassudate Gstain and cell counts, chemistries nort sugg of infx Recommendation Continue po Vancomycin 125 mg PO quid x 2 weeks for C diff (will count from the time systemic abx are stopped) [place] follow clincially fu P clx eloisa RN
[2018-07-08] MEDS: Dextrose 50% in Water 50 ML Vial IV.PUSH PRN ×5 (00:37→21:42)
[2018-07-08] MEDS: Sodium Bicarbonate 8.4% Inj 150 MEQ in Water for Inj, Sterile 850 ML IV.CONT SCH ×5 (02:01→21:39)
[2018-07-08 06:07] LABS: Calcium 5.8 mg/dL (8.5-10.1); Carbon Dioxide 30.1 meq/L (21.0-32.0); Magnesium 1.9 mg/dL (1.5-2.5); Potassium 4.4 meq/L (3.5-5.1)
[2018-07-08 06:32] LABS: Total Protein 4.5 g/dL (6.4-8.2)
[2018-07-08] MEDS: Albumin Human 5% Inj 250 ML IV.SIG SCH ×2 (08:11→21:43)
[2018-07-08] MEDS: Sodium Bicarbonate 650 MG Tablet PO SCH (08:12)
[2018-07-08] MEDS: Calcium Carbonate 500 MG Tablet PO SCH ×2 (08:12→21:43)
[2018-07-08] MEDS: Carvedilol 12.5 MG Tablet PO SCH ×2 (08:12→21:43)
[2018-07-08] MEDS: Famotidine 20 MG Tablet PO SCH ×2 (08:12→21:43)
[2018-07-08] MEDS: Sodium Chloride 0.9% 2 ML Flush BID IV.FLUSH SCH ×2 (08:12→21:44)
[2018-07-08] MEDS: Calcium Acetate 667 MG Capsule PO SCH ×3 (08:12→17:15)
[2018-07-08] MEDS: Senna/Docusate Sodium 8.6/50 MG Tablet PO SCH ×2 (08:46→21:45)
[2018-07-08] MEDS: Collagenase Oint 30 GM Tube TOPICAL SCH ×2 (08:46)
[2018-07-08] MEDS: Insulin NovoLOG Aspart Correctional Sugar Inj SQ SCH ×4 (08:47→21:41)
--- NOTE | 2018-07-08 08:52 | P.PNCC ---
Subjective Subjective Remarks/Hospital Course: 53-year-old male presented to emergency department today with complaints of shortness of breath, fatigue, and extensive draining edema of the lower extremities bilaterally. Per chart review his symptoms started 5 days ago and the swelling of his lower legs and feet have progressively gotten worse over the past 5 days. The patient also has had pain in the back of both lower extremities from the knees to the toes. He denied chest pain. He has a history of type-II diabetes mellitus and congestive heart failure. He has not taken any of his regular medications for the past 3 weeks due to financial limitations. During the examination in the emergency department he was found to have gangrene of the right foot and was emergently taken to operating room for an incision and drainage with debridement of foot and ankle. Postoperatively he remains intubated and was admitted to ICU for critical care management. SUBJ: s/p Incision drainage debridement foot ankle and distal leg, for gas gangrene. Remains in septic shock on Levophed. Remains intubated sedated. Currently on vancomycin and Zosyn I have added clindamycin. Cultures and wound cultures pending . Vascular surgery consult also pending. Received 2 units PRBC for hemoglobin of 5.3 06/04/18: Patient had been weaned off all pressors. Wakes up easily follows commands. 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 WBC count remains elevated but renal function improving. Hemoglobin stable. Multiple blood cultures growing E. coli. Wound culture with E. coli, MRSA, gram-negative rods. Continue Zosyn and vancomycin 06/05: Remains off vasopressors. Alert and conversant. Encephalopathy clearing. Blood and wound organisms identified, antibiotic coverage appropriate. 06/06: Normotensive. Afebrile. Urine output acceptable. Septic picture largely over. Base deficit largely corrected. Blood sugar trending higher will convert to full diabetic diet. 07/06: Responded to [facility] on the fourth floor. Per nursing report patient was complaining of shortness of breath, then became unresponsive and pulseless. [facility] was activated and CPR was initiated. Upon my arrival I have immediately intubated patient with ET tube during the CPR, patient regained spontaneous circulation after approximately 4 cycles of CPR and injections of epinephrine and sodium bicarbonate and calcium. Shortly after that he became severely bradycardic with loss of pulsation again and new CPR cycle was initiated after 2 cycles of CPR and 2 injections of epinephrine sodium bicarbonate patient regained spontaneous circulation again and was transferred to intensive care unit on epinephrine drip. The central line and A-line were placed in the ISC, however patient has a signs of anoxic brain damage already, and dilated pupils at 8 mm as well as occasional myoclonic jerks. 07/07: He remains unresponsive. Vasopressor support now at 1 devonte per minute epinephrine. He is tepid but adequately perfused. Some spontaneous urine production has occurred. Acid-base balance is normal. Electrolyte levels are acceptable. Now ventilator dependent and intubated oral tracheal route. We will continue ongoing resuscitative efforts while following his electrolytes and acid-base balance. 07/08: Continues with some spontaneous urine output. Although vasopressor requirements have been reduced his underlying biventricular dysfunction and severe mitral and tricuspid regurgitation limit our ability to aggressively volume load this individual. Ultimately, his poor heart will likely dictate his prognosis. Objective Vital Signs / I&O: Vital Signs 07/07/18 09:00 07/07/18 10:00 07/07/18 10:20 Temperature 95.9 F L 96.6 F L Pulse Rate 68 69 Respiratory Rate 18 18 18 Blood Pressure Pulse Oximetry 100 95 91 L 07/07/18 11:00 07/07/18 11:37 07/07/18 11:41 Temperature 97.3 F L 97.9 F 97.7 F Pulse Rate 70 58 L 73 Respiratory Rate 14 19 26 H Blood Pressure 46/30 L 64/44 L Pulse Oximetry 99 98 96 07/07/18 11:54 07/07/18 12:00 07/07/18 13:00 Temperature 97.9 F 97.9 F 97.9 F Pulse Rate 71 72 70 Respiratory Rate 13 13 14 Blood Pressure 85/51 L 79/51 L Pulse Oximetry 100 98 100 07/07/18 14:00 07/07/18 15:00 07/07/18 16:00 Temperature 98.2 F 98.8 F 99.3 F Pulse Rate 72 70 71 Respiratory Rate 12 12 12 Blood Pressure Pulse Oximetry 100 100 100 07/07/18 17:28 07/07/18 18:00 07/07/18 20:00 Temperature 99.1 F Pulse Rate 72 70 Respiratory Rate 12 12 Blood Pressure Pulse Oximetry 100 100 07/07/18 22:59 07/08/18 00:00 07/08/18 01:41 Temperature 98.1 F Pulse Rate 66 Respiratory Rate 12 12 12 Blood Pressure Pulse Oximetry 100 100 100 07/08/18 04:00 07/08/18 04:26 Temperature 97.2 F L Pulse Rate 64 Respiratory Rate 12 12 Blood Pressure Pulse Oximetry 100 100 Intake & Output 07/07/18 07/08/18 07/08/18 18:59 06:59 18:59 Intake Total 3500 / 3500 1420 / 1420 Output Total 675 / 675 2150 / 2150 Balance 2825 / 2825 -730 / -730 Weight 97.9 kg Intake: IV 3500 / 3500 1300 / 1300 Versed Inj 50 mg In 50 ml @ 2 50 / 50 MG/HR 2 mls/hr IV.CONT TITRATE PRN Rx#:[id number] Sodium Bicarbonate 8.4% Inj 150 2000 / 2000 1000 / 1000 MEQ In Sterile Water for Inj 850 ML @ 150 mls/hr IV.CONT . Q6H40M [facility] Rx#:[id number] Buminate 5% Inj 250 ML @ 250 250 / 250 mls/hr IV.SIG Q12H [facility] Rx#: [id number] Alburx 5% Inj 500 ML @ 250 mls/ 1500 / 1500 hr IV.SIG Q6H [facility] Rx#:[id number] Tube Feeding 60 / 60 Tube Irrigant 60 / 60 Output: Stool 0 / 0 Urine Amount (Catheter) 200 / 200 450 / 450 Indwelling Urethral Catheter 200 / 200 450 / 450 Gastric Drainage 75 / 75 Orogastric Tube 75 / 75 Chest Tube Drainage 400 / 400 1700 / 1700 Right 400 / 400 1700 / 1700 Other: Mode Setting R BKA stump Continuous Date of Last Bowel Movement 07/06/18 Result Diagrams: 07/07/18 00:30 07/08/18 05:30 Objective Remarks: - Constitutional Intubated, sedated - Routine HEENT Exam Head: Present: normocephalic, atraumatic Eye: Present: Pupils 8 mm fixed and dilated bilaterally ENT: Endotracheally intubated. - Routine Neck Exam Present: supple. No JVD - Routine Respiratory Exam Present: Persistent rhonchi bilaterally, few crackles, decreased breath sounds at the right. - Routine Cardiovascular Exam Present: RRR, S1, S2. Hemodynamically unstable on epinephrine drip. No JVD. - Routine Abdominal Exam Present: soft, normoactive bowel sounds, no guarding. Absent: tenderness, distended - Routine Extremities Exam Status post right BKA, wound clean without discharge or bleeding. L heel ulcer - Routine Neurological Exam Opens eyes to loud voice, not breathing spontaneously over the set ventilator rate. Assessment and Plan - Assessment and Plan Plan: A/P Neuro: Status post cardiac arrest Signs of anoxic brain damage -Not a candidate for therapeutic hypothermia due to sepsis and C. difficile colitis -EEG -CT head when hemodynamically improved and more stabilized -Neurology and palliative care consultation Resp: Respiratory failure Large pleural effusion -Respiratory failure -Mechanical ventilation -No weaning until neurologically and hemodynamically stable -Vent bundle -DuoNeb's as needed -Thoracentesis for pleural effusion drainage, pending coags CVS/ID Septic shock Gangrene of the right foot -Broad-spectrum antibiotic with vancomycin and Zosyn, completed per ID recommendation -Multiple blood cultures with E. coli, wound culture with E. coli, gram- negative ankur, MRSA -Status post I&D and debridement, status post BKA by Dr. Cooney -Continue IV fluid and blood product resuscitation -Epinephrine drip to keep map above 65, transition to Levophed if tolerated HEME Blood loss anemia -Monitor H&H and transfuse to keep hemoglobin above 7 : Acute kidney injury -Strict I's and O's. IV fluid hydration -Monitor electrolytes and creatinine level -Creatinine has been worsening -Nephrology consultation appreciated ID: Gangrenous right foot. Bacteremia C. difficile colitis -Vancomycin and Zosyn was completed per ID recommendation -P.o. vancomycin will be continued for 2 weeks GI: -Nepro tube feeds Endo: Diabetes mellitus -Insulin sliding scale DVT GI prophylaxis -Teds SCDs -Heparin subcu -Pepcid Overall impression: Patient remains critically ill with hemodynamic instability and dependence on mechanical ventilation. Will obtain EEG to rule out nonconvulsive seizures. He remains in critical condition with unstable hemodynamics made worse by is very poor chronic cardiac function. Critical care time 42 minutes aside from procedures.
--- NOTE | 2018-07-08 09:37 | P.PNNP ---
Subjective Interval history: Remains of ventilator. Eyes open responding to commands. Creatinine at 2.39 and urinary output is improving. <NelsonApryl - Last Filed: 07/08/18 09:24> Physical Exam Vital signs: Vital Signs 07/07/18 10:00 07/07/18 10:20 07/07/18 11:00 Temperature 96.6 F L 97.3 F L Pulse Rate 69 70 Respiratory Rate 18 18 14 Blood Pressure Pulse Oximetry 95 91 L 99 07/07/18 11:37 07/07/18 11:41 07/07/18 11:54 Temperature 97.9 F 97.7 F 97.9 F Pulse Rate 58 L 73 71 Respiratory Rate 19 26 H 13 Blood Pressure 46/30 L 64/44 L 85/51 L Pulse Oximetry 98 96 100 07/07/18 12:00 07/07/18 13:00 07/07/18 14:00 Temperature 97.9 F 97.9 F 98.2 F Pulse Rate 72 70 72 Respiratory Rate 13 14 12 Blood Pressure 79/51 L Pulse Oximetry 98 100 100 07/07/18 15:00 07/07/18 16:00 07/07/18 17:28 Temperature 98.8 F 99.3 F Pulse Rate 70 71 Respiratory Rate 12 12 12 Blood Pressure Pulse Oximetry 100 100 100 07/07/18 18:00 07/07/18 20:00 07/07/18 22:59 Temperature 99.1 F Pulse Rate 72 70 Respiratory Rate 12 12 Blood Pressure Pulse Oximetry 100 100 07/08/18 00:00 07/08/18 01:41 07/08/18 04:00 Temperature 98.1 F 97.2 F L Pulse Rate 66 64 Respiratory Rate 12 12 12 Blood Pressure Pulse Oximetry 100 100 100 07/08/18 04:26 07/08/18 08:53 Temperature Pulse Rate Respiratory Rate 12 12 Blood Pressure Pulse Oximetry 100 100 Intake & Output 07/07/18 07/08/18 07/08/18 18:59 06:59 18:59 Intake Total 3500 / 3500 1420 / 1420 1000 / 1000 Output Total 675 / 675 2150 / 2150 Balance 2825 / 2825 -730 / -730 1000 / 1000 Weight 97.9 kg Intake: IV 3500 / 3500 1300 / 1300 1000 / 1000 Versed Inj 50 mg In 50 ml @ 2 50 / 50 MG/HR 2 mls/hr IV.CONT TITRATE PRN Rx#:[id number] Sodium Bicarbonate 8.4% Inj 150 2000 / 2000 1000 / 1000 1000 / 1000 MEQ In Sterile Water for Inj 850 ML @ 150 mls/hr IV.CONT . Q6H40M [facility] Rx#:[id number] Buminate 5% Inj 250 ML @ 250 250 / 250 mls/hr IV.SIG Q12H [facility] Rx#: [id number] Alburx 5% Inj 500 ML @ 250 mls/ 1500 / 1500 hr IV.SIG Q6H [facility] Rx#:[id number] Tube Feeding 60 / 60 Tube Irrigant 60 / 60 Output: Stool 0 / 0 Urine Amount (Catheter) 200 / 200 450 / 450 Indwelling Urethral Catheter 200 / 200 450 / 450 Gastric Drainage 75 / 75 Orogastric Tube 75 / 75 Chest Tube Drainage 400 / 400 1700 / 1700 Right 400 / 400 1700 / 1700 Other: Mode Setting R BKA stump Continuous Date of Last Bowel Movement 07/06/18 Narrative: GENERAL: Orally Intubated. Responding to commands NECK: Supple, trachea midline. No JVD. Right IJ CVC CARDIOVASCULAR: Bradycardia. Regular rhythm without murmurs, gallops, or rubs. Chest tube RESPIRATORY: Breath sounds diminished. GASTROINTESTINAL: Abdomen soft, non-tender, nondistended. OG tube GENITOURINARY: Indwelling Walters catheter, light colored urine MUSCULOSKELETAL: No cyanosis,generalized edema. - Urinary Catheter Management Indwelling Urethral Catheter Cath placed during this visit: yes, but has since been removed by the nurse Urethral indwelling: Yes Reason for continuing: Acute urinary retention Insertion date: 07/05/18 Insertion time: 13:59 Removal date: 07/06/18 Removal time: 14:57 <Apryl Damon - Last Filed: 07/08/18 09:24> Vital signs: Vital Signs 07/09/18 20:00 07/09/18 20:51 07/09/18 22:00 Temperature 98.1 F Pulse Rate 73 71 Respiratory Rate 12 12 Pulse Oximetry 100 100 07/10/18 00:00 07/10/18 00:21 07/10/18 02:00 Temperature 98.2 F Pulse Rate 74 70 Respiratory Rate 12 12 Pulse Oximetry 100 100 07/10/18 04:00 07/10/18 04:22 07/10/18 06:00 Temperature 97.6 F Pulse Rate 65 63 Respiratory Rate 12 12 Pulse Oximetry 100 100 07/10/18 08:13 Temperature Pulse Rate Respiratory Rate 12 Pulse Oximetry 100 Intake & Output 07/09/18 07/10/18 07/10/18 18:59 06:59 18:59 Intake Total 4240 / 4240 2300 / 2300 757 / 757 Output Total 4515 / 4515 5075 / 5075 Balance -275 / -275 -2775 / -2775 757 / 757 Weight 93.9 kg Intake: IV 2650 / 2650 2300 / 2300 757 / 757 Bumex Inj 25 mg In 100 ml @ 0.5 100 / 100 50 / 50 MG/HR 2 mls/hr IV.CONT .Q24H [facility] Rx#:[id number] Versed Inj 50 mg In 50 ml @ 2 50 / 50 50 / 50 MG/HR 2 mls/hr IV.CONT TITRATE PRN Rx#:[id number] Sodium Bicarbonate 8.4% Inj 150 2000 / 2000 2000 / 1999 707 / 707 MEQ In Sterile Water for Inj 850 ML @ 150 mls/hr IV.CONT . Q6H40M [facility] Rx#:[id number] Buminate 5% Inj 250 ML @ 250 250 / 250 250 / 250 mls/hr IV.SIG Q12H [facility] Rx#: [id number] fentaNYL 10 mcg/mL Premix Drip 250 / 250 2,500 mcg In 250 ml @ 50 MCG/HR 5 mls/hr IV.SIG TITRATE PRN Rx #:[id number] Oral 0 / 0 Tube Feeding 870 / 870 Water Bolus Amount 170 / 170 Other 550 / 550 Output: Urine Amount (Catheter) 3575 / 3575 4225 / 4225 Indwelling Urethral Catheter 3575 / 3575 4225 / 4225 Chest Tube Drainage 940 / 940 850 / 850 Right 940 / 940 850 / 850 Other: Other Intake Source Saline Solution Date of Last Bowel Movement 07/09/18 07/10/18 07/10/18 # Bowel Movements 1 3 - Urinary Catheter Management Indwelling Urethral Catheter Cath placed during this visit: no <Mervat Cheema Q - Last Filed: 07/10/18 18:25> Assessment and Plan - Assessment (1) Hyperkalemia Code(s): E87.5 - Hyperkalemia Status: Acute (2) CHF (congestive heart failure) Code(s): I50.9 - Heart failure, unspecified Status: Acute Qualifiers: Heart failure type: unspecified Heart failure chronicity: acute on chronic Qualified Code(s): I50.9 - Heart failure, unspecified (3) YOLY (acute kidney injury) Code(s): N17.9 - Acute kidney failure, unspecified Status: Acute (4) Status post below knee amputation Code(s): Z89.519 - Acquired absence of unspecified leg below knee Status: Acute - Plan Acute kidney injury with creatinine of 1.90 and hyperkalemia of 6.1 on day of consult Code blue 07/06, intubated on pressure support Indwelling Walters catheter placed maintain strict I+O Maintain Map of 65 mmhg, on pressor support Hyperkalemia resolved. Hypocalcemia, IV replacement added today Creatinine slightly increased at 2.39 Continue Bumex gtt, urinary output improving. Will follow electrolytes and BMP closely. <Apryl Damon - Last Filed: 07/08/18 09:24> - Assessment (1) Hyperkalemia Code(s): E87.5 - Hyperkalemia Status: Acute (2) CHF (congestive heart failure) Code(s): I50.9 - Heart failure, unspecified Status: Acute Qualifiers: Heart failure type: unspecified Heart failure chronicity: acute on chronic Qualified Code(s): I50.9 - Heart failure, unspecified (3) YOLY (acute kidney injury) Code(s): N17.9 - Acute kidney failure, unspecified Status: Acute (4) Status post below knee amputation Code(s): Z89.519 - Acquired absence of unspecified leg below knee Status: Acute - Plan Patient seen and examine, agree with above. Urine out put is good,'Creatinine increase slightly. Edema is better, on Bumex gtt. Follow the urine out put and BMP. <Josr Cheema - Last Filed: 07/10/18 18:25>
[2018-07-08] MEDS ORDERED: Calcium Gluconate Inj 1 GM in Sodium Chlor 0.9% Inj 90 ML IV.SIG ONE (11:00)
[2018-07-08] MEDS: Midazolam 50 MG/50 ML Inj 50 MG/50 ML BAG IV.CONT PRN (11:40)
--- NOTE | 2018-07-08 13:15 | P.PNVS ---
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 Wound VAC in place It should be noted that the time of surgery patient had purulent drainage from the proximal portion of the amputation so will take a few days before patient is ready for any further surgery In the best case scenario will undergo washout of the stump and closure on Thursday but depending on what it looks like I may delay the final closure for another few days after that In the meantime patient can be safely extubated and transferred to floor when stable 06/05/2018 Patient status post guillotine amputation of the right foot Considering the amount of infection gas gangrene and purulent drainage wound VAC will remain on for next few days Will likely washout the change wound VAC on Thursday and then go ahead and closed the incision probably around Thursday06/06/2018 Considering the amount of purulent drainage and degree of infection and gas gangrene I believe it is probably leonard to postpone final closure until at least Thursday Patient should have a washout of the stump at the bedside the new wound VAC placement tomorrow 06/07/2018 Wound VAC changed today Amputation site appears to be much machine fur cleaner Will likely closed the incision on Thursday Nothing to add at this time 06/08/2018 Patient had not had a change of wound VAC yet Wound care has been consulted but I do not know why the wound VAC was not changed Will now postpone final surgery until but wound VAC has to be changed and wound washed out today For closure of the BKA stump on Thursday06/10/2018 Patient will have serial wound vacs changed as ordered and by next the drainage and everything should be resolved to the point that patient can have closure of the BKA stump This is a unusually heavily infected purulent tissue of the calf and I do not want to close this before I am sure that is going to heal nicely and not result in a new abscess 06/11/2018 Patient stable Wound VAC changed and grateful to wound care team doing such excellent job Will likely take patient to the operating room or Thursday for hopefully a second stage procedure and closure 06/16/18 Stump appears clean, no more drainage For washout and closure tomorrow 06/17/2018 Patient taken to the operating room for washout and closure of the right BKA stump. Patient underwent amputation at the higher BKA level as planned and flap was created and the time noticed that there is more drainage from the area of the medial gastrocnemius muscle and about 100 cc of thick purulent material is extracted this area is completely opened irrigated with copious amount of saline and a new wound VAC placed At this point have no choice but to continue the wound VAC therapy before I can close this and will periodically see how patient does. Eventually we will close BK stump but in face of continued purulence he will have to be postponed for at least another week if not more 06/18/2018 Patient is status post amputation of the right leg with open stump and wound VAC Is noted during the surgery patient still had about 100 cc of isabella pus in the area of medial gastrocnemius muscle and this whole area has been opened up. Wound VAC on suction and expect a lot of drainage from this Hemoglobin 7 g/dL this morning we will transfuse 2 units PRBC Continue wound VAC changes as previously directed and hopefully by will take patient back to the operating room for another washout and hopefully closure of the stump. 06/19/2018 Wound VAC on the right BKA stump in place Hemoglobin remains stable after transfusion We will continue the wound VAC at least through this week and by the end of week I may decide to close the stump or even wait until next week for once is closed I want to minimize the chance of this getting infected 06/21/2018 Patient post 2nd stage amputation with open flap and vac. Great care by the wound care nurse Jacqueline. Will take to OR thursday or for closure of the flap 06/22/2018 Stump seems to be clean and serosanguineous drainage from the wound VAC is clearing up I do not believe that there is need to wait any longer and we can close the stump probably safely tomorrow unless I find some surprises during the surgery Tentatively patient scheduled for tomorrow for irrigation and closure of the right BKA stump 06/23/2018 Patient was scheduled for closure of the right BKA stump today however due to scheduling problems in the OR no time was available patient is rescheduled for tomorrow 06/29/2018 The BKA stump is nice clean and dry swelling has significantly decreased and there is no drainage No signs of infection I believe patient should remain on antibiotics as per infectious disease but as far as I am concerned patient can be transferred to rehab anytime Stitches to remain in for about 3 weeks and I will give instructions for the washing and wound care of the stump 06/30/2018 BKA stump is nice and dry no drainage well vascularized Providing that some sort of infection does not recur from deeper tissues or patient does not injured the stump this should heal well He can be discharged from my point any time 07/01/2018 Stump is clean and dry no signs of infection Patient can be discharged any time from my point and stitches will stay in for about 3 weeks total 07/06/2018 Stump is nice and dry healing well Stitches to remain in for about 3 weeks Patient can be discharged from my point any time 07/08/2018 Apparently patient had a cardiac arrest on the floor and is now in ICU intubated ventilated in critical condition BKA stump is healed nicely clean and no infection is noted Nothing to add to care at this time Objective Vital Signs / I&O: Vital Signs 07/07/18 14:00 07/07/18 15:00 07/07/18 16:00 Temperature 98.2 F 98.8 F 99.3 F Pulse Rate 72 70 71 Respiratory Rate 12 12 12 Blood Pressure Pulse Oximetry 100 100 100 07/07/18 17:28 07/07/18 18:00 07/07/18 20:00 Temperature 99.1 F Pulse Rate 72 70 Respiratory Rate 12 12 Blood Pressure Pulse Oximetry 100 100 07/07/18 22:59 07/08/18 00:00 07/08/18 01:41 Temperature 98.1 F Pulse Rate 66 Respiratory Rate 12 12 12 Blood Pressure Pulse Oximetry 100 100 100 07/08/18 04:00 07/08/18 04:26 07/08/18 08:00 Temperature 97.2 F L 97.6 F Pulse Rate 64 65 Respiratory Rate 12 12 12 Blood Pressure 93/69 L Pulse Oximetry 100 100 100 07/08/18 08:53 07/08/18 10:00 07/08/18 11:55 Temperature Pulse Rate 71 Respiratory Rate 12 19 Blood Pressure Pulse Oximetry 100 100 07/08/18 12:00 Temperature 99.2 F Pulse Rate 74 Respiratory Rate 12 Blood Pressure 112/71 Pulse Oximetry 100 Intake & Output 07/07/18 07/08/18 07/08/18 18:59 06:59 18:59 Intake Total 3500 / 3500 1420 / 1420 1300 / 1300 Output Total 675 / 675 2150 / 2150 Balance 2825 / 2825 -730 / -730 1300 / 1300 Weight 97.9 kg Intake: IV 3500 / 3500 1300 / 1300 1300 / 1300 Versed Inj 50 mg In 50 ml @ 2 50 / 50 50 / 50 MG/HR 2 mls/hr IV.CONT TITRATE PRN Rx#:[id number] Sodium Bicarbonate 8.4% Inj 150 2000 / 2000 1000 / 1000 1000 / 1000 MEQ In Sterile Water for Inj 850 ML @ 150 mls/hr IV.CONT . Q6H40M [facility] Rx#:[id number] Buminate 5% Inj 250 ML @ 250 250 / 250 250 / 250 mls/hr IV.SIG Q12H [facility] Rx#: [id number] Alburx 5% Inj 500 ML @ 250 mls/ 1500 / 1500 hr IV.SIG Q6H [facility] Rx#:[id number] Tube Feeding 60 / 60 Tube Irrigant 60 / 60 Output: Stool 0 / 0 Urine Amount (Catheter) 200 / 200 450 / 450 Indwelling Urethral Catheter 200 / 200 450 / 450 Gastric Drainage 75 / 75 Orogastric Tube 75 / 75 Chest Tube Drainage 400 / 400 1700 / 1700 Right 400 / 400 1700 / 1700 Other: Mode Setting R BKA stump Continuous Date of Last Bowel Movement 07/06/18 07/08/18 Laboratory Results - last 24 hr 07/06/18 07/06/18 07/07/18 09:15 09:15 11:30 Sodium 143 Potassium 4.7 Chloride 106 Carbon Dioxide 29.6 Anion Gap 7 BUN 64 H Creatinine 2.17 H Estimated GFR 32 L POC Glucose Random Glucose 63 L Calcium 6.1 L* Prot Corrected Calcium 7.3 L* Phosphorus 7.2 H D Magnesium 2.1 Total Bilirubin 0.7 AST 241 H ALT 125 H Alkaline Phosphatase 197 H Troponin I Less than 0.02 L Total Protein 4.6 L Albumin 1.6 L VINAY Screen Neg Anti-Proteinase 3 Less than 1.0 Anti-Myeloperoxidase Less than 1.0 07/07/18 07/07/18 07/07/18 16:10 16:33 21:29 Sodium Potassium Chloride Carbon Dioxide Anion Gap BUN Creatinine Estimated GFR POC Glucose 54 L 122 H 39 L* Random Glucose Calcium Prot Corrected Calcium Phosphorus Magnesium Total Bilirubin AST ALT Alkaline Phosphatase Troponin I Total Protein Albumin VINAY Screen Anti-Proteinase 3 Anti-Myeloperoxidase 07/07/18 07/08/18 07/08/18 21:47 00:34 01:04 Sodium Potassium Chloride Carbon Dioxide Anion Gap BUN Creatinine Estimated GFR POC Glucose 88 56 L 126 H Random Glucose Calcium Prot Corrected Calcium Phosphorus Magnesium Total Bilirubin AST ALT Alkaline Phosphatase Troponin I Total Protein Albumin VINAY Screen Anti-Proteinase 3 Anti-Myeloperoxidase 07/08/18 07/08/18 07/08/18 05:30 05:36 06:16 Sodium 141 Potassium 4.4 Chloride 102 Carbon Dioxide 30.1 Anion Gap 9 BUN 70 H Creatinine 2.39 H Estimated GFR 29 L POC Glucose 64 L 119 H Random Glucose 61 L Calcium 5.8 L* Prot Corrected Calcium 7.0 L* Phosphorus Magnesium 1.9 Total Bilirubin AST ALT Alkaline Phosphatase Troponin I Total Protein 4.5 L Albumin VINAY Screen Anti-Proteinase 3 Anti-Myeloperoxidase 07/08/18 07/08/18 07/08/18 08:16 11:40 12:22 Sodium Potassium Chloride Carbon Dioxide Anion Gap BUN Creatinine Estimated GFR POC Glucose 84 64 L 127 H Random Glucose Calcium Prot Corrected Calcium Phosphorus Magnesium Total Bilirubin AST ALT Alkaline Phosphatase Troponin I Total Protein Albumin VINAY Screen Anti-Proteinase 3 Anti-Myeloperoxidase Microbiology 06/02/18 18:48 Acid Fast Bacilli Smear - Final Wound - Foot No acid fast bacilli seen Mycobacterial Culture - Preliminary No growth in 5 weeks 07/07/18 06:20 Gram Stain - Final Fluid - Pleural fluid Impressions Chest X-Ray 07/07/18 00:45 CONCLUSION: New right internal jugular central line in good position. A pneumothorax is not seen. Moderate to large right pleural effusion. Hazy density at the left base representing some consolidation, atelectasis and possible milder left pleural effusion. There is suspected consolidation or atelectasis at the right base. Atelectasis is more likely given the size of the right effusion. Chest X-Ray 07/07/18 06:02 CONCLUSION: Suspected bilateral pleural effusions being worse on the right. Increased density in the mid and lower lungs likely related to atelectasis or consolidation in these regions. Cardiomegaly.
[2018-07-08] MEDS: fentaNYL 10 mcg/mL Premix Drip 2,500 MCG/250 ML BAG IV.SIG PRN (14:42)
--- NOTE | 2018-07-08 16:46 | P.PNPAL ---
Palliative care spoke to patient's friend /HCS (Gabriella Hernández) via telephone. Update provided on patient's medical condition. Family and friends will be arriving late today. Tentative plan to meet with palliative care tomorrow 07/09. Goals remain aggressive at this time.
[2018-07-08] MEDS: Bumetanide Inj 25 MG/100 ML BAG IV.CONT SCH (17:16)
--- NOTE | 2018-07-08 19:29 | MG ---
cc: Kofi Galicia MD EEG NUMBER: [id number] FINDINGS: He is on fentanyl and Versed. A 7 Hz, symmetric diffuse rhythm is seen to 60 microvolts. Recording overall is synchronous and symmetric. Appears that he falls asleep and reaches stage II sleep. No hemispheric asymmetry is noted. No epileptiform or seizure activity is seen. IMPRESSION: Diffuse slowing consistent with a mild diffuse encephalopathy. Some normal sleep activity is seen. No seizure activity is noted. No hemisphere asymmetries are seen. oKfi Galicia MD DJM/ct , 06:15 PM , 06:20 PM
--- NOTE | 2018-07-08 19:36 | P.PNWCN ---
Wound Care Nurse Consult Description: Patient seen earlier for pressure injury consult for Coccyx deterioration Communicated with: Dorothy Cummins [address] [place] [address] and Doctor Rivera Recommendation: Please cleanse unstageable wound to L side of the coccyx with normal saline only. Apply Santyl to wound bed uriel thickness. Apply Calazime to periwound circumferentially. Then apply Cavilon skin barrier film to intact skin before covering wound with bordered gauze. Change dressing daily. Turn patient every 2 hours from L side to R side for offloading of pressure from Garima prominence Wound/Pressure Injury - Patient Status Premedicated for Pain Prior to Dressing Change: Yes - Wound Coccyx Wound Staging: Unstageable Wound Assessment: Ongoing Wound Type: Pressure Injury Is This a Chronic Wound: No Requested from Provider a Wound Care Consult: Yes (Wound care is following) Length (cm): 3 (cm) Width (cm): 1.5 (cm) Depth (cm): 0 (slough) Wound Bed Appearance: Wound bed presents with ~20% pink tissue and ~80% dark yellow loosely adherent slough. Surrounding Tissue Appearance: Reservoir Surrounding Tissue Temperature: Warm Drainage Description: Serosanguinous Drainage Amount: Scant Drainage Odor: No Odor Dressing Status: Changed Cleansing Solution: Saline Topical: Enzymatic Debridement Ointment Cover Dressing: Bordered gauze Wound Dressing Change Date: 07/09/18 Wound Margin Description: Wound margins are open - Additional Information Patient seen on [address] [place] [address] for follow up of previously noted unstageable pressure injury to coccyx area. Patient is currently intubated, sedated in [facility]. Patient is laying on advanced IV low airloss alternating pressure bed from [facility] Patient was turned toward the L side with the assistance of Maria G MORE [facility], insurance underwriter and other RN in room. Patient is noted with anasarca that is pitting. Skin is moist from weeping edema. Walters Catheter is in place. Removed dressing in place to reveal open wound to coccyx area.Wound is noted with ~80% dark yellow/brown loosely adherent slough and ~20% pink tissue. DTI is noted to periwound between 6 and 7 o'clock. Periwound is also noted with denuded, erythematous skin. Wound was cleansed with normal saline and Santyl ointment was applied to wound bed. Applied Calazime skin protectant paste to periwound circumferentially. Applied Cavilon barrier film spray to intact skin before applying bordered gauze in place. Patient was positioned off bottom for offloading of pressure from coccyx area.
[2018-07-08 20:55] VITALS: RESP 12
[2018-07-09] MEDS: Sodium Bicarbonate 8.4% Inj 150 MEQ in Water for Inj, Sterile 850 ML IV.CONT SCH ×5 (01:00→22:38)
[2018-07-09 01:32] VITALS: O2SAT 100
[2018-07-09] MEDS: Midazolam 50 MG/50 ML Inj 50 MG/50 ML BAG IV.CONT PRN ×2 (04:40→17:00)
[2018-07-09 05:01] VITALS: BP 107/67
[2018-07-09 07:26] LABS: Calcium 5.7 mg/dL (8.5-10.1); Carbon Dioxide 33.8 meq/L (21.0-32.0); Potassium 3.9 meq/L (3.5-5.1)
[2018-07-09 08:02] LABS: Total Protein 4.5 g/dL (6.4-8.2)
[2018-07-09] MEDS: Albumin Human 5% Inj 250 ML IV.SIG SCH ×2 (09:19→23:01)
[2018-07-09] MEDS: Calcium Carbonate 500 MG Tablet PO SCH ×2 (09:22→22:39)
[2018-07-09] MEDS: Calcium Acetate 667 MG Capsule PO SCH ×3 (09:22→17:00)
[2018-07-09] MEDS: Famotidine 20 MG Tablet PO SCH ×2 (09:22→22:39)
[2018-07-09] MEDS: Sodium Chloride 0.9% 2 ML Flush BID IV.FLUSH SCH ×2 (09:24→22:39)
[2018-07-09] MEDS: Collagenase Oint 30 GM Tube TOPICAL SCH ×2 (09:25)
[2018-07-09] MEDS: Senna/Docusate Sodium 8.6/50 MG Tablet PO SCH ×2 (09:25→22:39)
[2018-07-09] MEDS: Carvedilol 12.5 MG Tablet PO SCH ×2 (09:50→22:39)
[2018-07-09] MEDS: Insulin NovoLOG Aspart Correctional Sugar Inj SQ SCH ×4 (09:57→22:53)
[2018-07-09] MEDS: Bumetanide Inj 25 MG/100 ML BAG IV.CONT SCH (10:39)
--- NOTE | 2018-07-09 12:16 | P.PNCC ---
Subjective Subjective Remarks/Hospital Course: 53-year-old male presented to emergency department today with complaints of shortness of breath, fatigue, and extensive draining edema of the lower extremities bilaterally. Per chart review his symptoms started 5 days ago and the swelling of his lower legs and feet have progressively gotten worse over the past 5 days. The patient also has had pain in the back of both lower extremities from the knees to the toes. He denied chest pain. He has a history of type-II diabetes mellitus and congestive heart failure. He has not taken any of his regular medications for the past 3 weeks due to financial limitations. During the examination in the emergency department he was found to have gangrene of the right foot and was emergently taken to operating room for an incision and drainage with debridement of foot and ankle. Postoperatively he remains intubated and was admitted to ICU for critical care management. SUBJ: s/p Incision drainage debridement foot ankle and distal leg, for gas gangrene. Remains in septic shock on Levophed. Remains intubated sedated. Currently on vancomycin and Zosyn I have added clindamycin. Cultures and wound cultures pending . Vascular surgery consult also pending. Received 2 units PRBC for hemoglobin of 5.3 06/04/18: Patient had been weaned off all pressors. Wakes up easily follows commands. 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 WBC count remains elevated but renal function improving. Hemoglobin stable. Multiple blood cultures growing E. coli. Wound culture with E. coli, MRSA, gram-negative rods. Continue Zosyn and vancomycin 06/05: Remains off vasopressors. Alert and conversant. Encephalopathy clearing. Blood and wound organisms identified, antibiotic coverage appropriate. 06/06: Normotensive. Afebrile. Urine output acceptable. Septic picture largely over. Base deficit largely corrected. Blood sugar trending higher will convert to full diabetic diet. 07/06: Responded to [facility] on the fourth floor. Per nursing report patient was complaining of shortness of breath, then became unresponsive and pulseless. [facility] was activated and CPR was initiated. Upon my arrival I have immediately intubated patient with ET tube during the CPR, patient regained spontaneous circulation after approximately 4 cycles of CPR and injections of epinephrine and sodium bicarbonate and calcium. Shortly after that he became severely bradycardic with loss of pulsation again and new CPR cycle was initiated after 2 cycles of CPR and 2 injections of epinephrine sodium bicarbonate patient regained spontaneous circulation again and was transferred to intensive care unit on epinephrine drip. The central line and A-line were placed in the [facility], however patient has a signs of anoxic brain damage already, and dilated pupils at 8 mm as well as occasional myoclonic jerks. 07/07: He remains unresponsive. Vasopressor support now at 1 devonte per minute epinephrine. He is tepid but adequately perfused. Some spontaneous urine production has occurred. Acid-base balance is normal. Electrolyte levels are acceptable. Now ventilator dependent and intubated oral tracheal route. We will continue ongoing resuscitative efforts while following his electrolytes and acid-base balance. 07/08: Continues with some spontaneous urine output. Although vasopressor requirements have been reduced his underlying biventricular dysfunction and severe mitral and tricuspid regurgitation limit our ability to aggressively volume load this individual. Ultimately, his poor heart will likely dictate his prognosis. 07/09: Patient continues to deteriorate clinically. Severe left heart failure with pulmonary edema responsive to PEEP. Renal failure persists, coagulation profile prolonged due to hepatic dysfunction, EEG with diffuse slowing. Patient remains in critical condition with very little hope for meaningful recovery in the context of end-stage heart disease. Objective Vital Signs / I&O: Vital Signs 07/08/18 14:00 07/08/18 16:00 07/08/18 16:31 Temperature 99.1 F Pulse Rate 74 74 Respiratory Rate 12 16 Blood Pressure 118/75 Pulse Oximetry 100 07/08/18 17:26 07/08/18 18:00 07/08/18 20:00 Temperature 98.2 F Pulse Rate 72 73 Respiratory Rate 12 Blood Pressure 109/73 Pulse Oximetry 99 100 07/08/18 20:52 07/08/18 22:00 07/09/18 00:00 Temperature 97.7 F Pulse Rate 70 71 Respiratory Rate 12 12 Blood Pressure 105/68 Pulse Oximetry 98 100 07/09/18 02:00 07/09/18 04:00 07/09/18 04:10 Temperature 99.1 F Pulse Rate 74 75 Respiratory Rate 12 12 Blood Pressure 107/67 Pulse Oximetry 100 07/09/18 06:00 07/09/18 08:33 07/09/18 11:48 Temperature Pulse Rate 71 Respiratory Rate 12 12 Blood Pressure Pulse Oximetry 100 100 Intake & Output 07/08/18 07/09/18 07/09/18 18:59 06:59 18:59 Intake Total 1696 / 1696 2830 / 2830 1400 / 1400 Output Total 2100 / 2100 3050 / 3050 Balance -404 / -404 -220 / -220 1400 / 1400 Weight 99 kg Intake: IV 1400 / 1400 2300 / 2300 1350 / 1350 Bumex Inj 25 mg In 100 ml @ 0.5 100 / 100 MG/HR 2 mls/hr IV.CONT .Q24H [facility] Rx#:[id number] Versed Inj 50 mg In 50 ml @ 2 50 / 50 50 / 50 MG/HR 2 mls/hr IV.CONT TITRATE PRN Rx#:[id number] Sodium Bicarbonate 8.4% Inj 150 1000 / 1000 2000 / 2000 1000 / 1000 MEQ In Sterile Water for Inj 850 ML @ 150 mls/hr IV.CONT . Q6H40M [facility] Rx#:[id number] Buminate 5% Inj 250 ML @ 250 250 / 250 250 / 250 250 / 250 mls/hr IV.SIG Q12H [facility] Rx#: [id number] Calcium Gluconate Inj 1 GM In 100 / 100 NS Inj 90 ML @ 100 mls/hr IV. SIG ONCE ONE Rx#:[id number] fentaNYL 10 mcg/mL Premix Drip 0 / 0 2,500 mcg In 250 ml @ 50 MCG/HR 5 mls/hr IV.SIG TITRATE PRN Rx #:[id number] Tube Feeding 296 / 296 530 / 530 Water Bolus Amount 50 / 50 Output: Urine Amount (Catheter) 1250 / 1250 2200 / 2200 Indwelling Urethral Catheter 1250 / 1250 2200 / 2200 Chest Tube Drainage 850 / 850 850 / 850 Right 850 / 850 850 / 850 Other: Date of Last Bowel Movement 07/08/18 07/09/18 07/09/18 # Bowel Movements 1 1 1 # Incontinent Bowel Movements 1 Result Diagrams: 07/07/18 00:30 07/09/18 06:00 Objective Remarks: - Constitutional Intubated, sedated - Routine HEENT Exam Head: Present: normocephalic, atraumatic Eye: Present: Pupils 3 mm fixed and dilated bilaterally ENT: Endotracheally intubated. - Routine Neck Exam Present: supple. No JVD - Routine Respiratory Exam Present: Persistent rhonchi bilaterally, some crackles, decreased breath sounds at the right. - Routine Cardiovascular Exam Present: RRR, S1, S2. Hemodynamically unstable on epinephrine drip. No JVD. - Routine Abdominal Exam Present: soft, normoactive bowel sounds, no guarding. Absent: tenderness, distended - Routine Extremities Exam Status post right BKA, wound clean without discharge or bleeding. L heel ulcer - Routine Neurological Exam Opens eyes to loud voice, not breathing spontaneously over the set ventilator rate. Does appear to recognize people. Assessment and Plan - Assessment and Plan Plan: A/P Neuro: Status post cardiac arrest Signs of anoxic brain damage -Not a candidate for therapeutic hypothermia due to sepsis and C. difficile colitis -EEG -CT head when hemodynamically improved and more stabilized -Neurology and palliative care consultation -EEG with diffuse bilateral slowing, no focal abnormal activity Resp: Respiratory failure Large pleural effusion -Respiratory failure -Mechanical ventilation -No weaning until neurologically and hemodynamically stable -Vent bundle -DuoNeb's as needed -Thoracentesis for pleural effusion drainage, pending coags -Continued large output from right thoracostomy tube. CVS/ID Septic shock Gangrene of the right foot -Broad-spectrum antibiotic with vancomycin and Zosyn, completed per ID recommendation -Multiple blood cultures with E. coli, wound culture with E. coli, gram- negative ankur, MRSA -Status post I&D and debridement, status post BKA by Dr. Cooney -Continue IV fluid and blood product resuscitation -Epinephrine drip to keep map above 65, transition to Levophed if tolerated -Taper epinephrine. HEME Blood loss anemia -Monitor H&H and transfuse to keep hemoglobin above 7 : Acute kidney injury -Strict I's and O's. IV fluid hydration -Monitor electrolytes and creatinine level -Creatinine has been worsening -Nephrology consultation appreciated ID: Gangrenous right foot. Bacteremia C. difficile colitis -Vancomycin and Zosyn was completed per ID recommendation -P.o. vancomycin will be continued for 2 weeks GI: -Nepro tube feeds Endo: Diabetes mellitus -Insulin sliding scale DVT GI prophylaxis -Teds SCDs -Heparin subcu -Pepcid Overall impression: Patient remains critically ill with hemodynamic instability and dependence on mechanical ventilation. Any attempts to decrease PEEP results and pulmonary edema. EEG has ruled out nonconvulsive seizures. He remains in critical condition with unstable hemodynamics made worse by is very poor chronic cardiac function. Renal failure persists. Hepatic dysfunction has resulted in coagulopathy with prolonged INR. I had a lengthy talk with the patient's sister who is the power of title attorney for healthcare. I expressed the severity of his illness and poor prognosis in great detail. The family is deciding on a care plan. Critical care time 47 minutes
--- NOTE | 2018-07-09 13:00 | P.DIET ---
Nutritional Evaluation Type of nutrition evaluation: initial Nutrition consult regarding: Tube Feeding Screening comments: Transferred to [facility] after code blue yesterday. Objective - Diagnosis R foot gangrene, CHF exacerbation, YOLY - Objective Part of Body Amputated: Right below knee (6%) % IBW: 131 (IBW = 167#) Body Weight Used for Calculations: IBW (75.9 kg) Energy Needs - Lower Range (kCal/kg): 28 Energy Needs - Upper Range (kCal/kg): 32 Lower Limit kCal/kg (kCals): 2,125 Upper Limit kCal/kg (kCals): 2,429 Lower Limit Protein Factor (Grams per Kg): 1.0 Upper Limit Protein Factor (Grams per Kg): 1.5 Lower Protein Needs (Protein): 76 Upper Protein Needs (Protein): 114 Dietitian Reviewed in Medical Record: Curent medications, Intake & Output, Labs , Medical history, Tube feeding Diet Order: NPO Objective Comments: 06/03 R BKA 06/24 wound closure (+) C Diff Labs: HgA1c 7.5, glu 59, BUN/creat 63/2.14, Est GFR 33 Assessment Assessment: Pt is now intubated and needs TFing to meet nutritional needs. Current order is for Nepro @ 35 mls/hr. Please note that Nepro is formulated for pts on dialysis. 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 Receiving adequate nutrition for healing.)
[2018-07-09] MEDS: Dextrose 50% in Water 50 ML Vial IV.PUSH PRN (13:51)
[2018-07-09] MEDS: fentaNYL 10 mcg/mL Premix Drip 2,500 MCG/250 ML BAG IV.SIG PRN (17:57)
--- NOTE | 2018-07-09 18:08 | P.PNPAL ---
Reason for Visit Reason for visit: a. To assist with evaluation and management of symptoms including: Pain, altered mental status b. To assist medical decision maker(s) with: better understanding of current medical conditions; weighing benefits/burdens of medical treatment options; making medical treatment decisions. Subjective Subjective/Interval History: Mr. Dexter is a 53-year-old male who was admitted 06/02/2018 with CHF exacerbation, YOLY and subcutaneous gas gangrene in the right lower extremity status post BKA on 06/03/2018. Hospital course was complicated by bacteremia, MRSA and C. difficile. Echocardiogram showed severely reduced left ventricular systolic function with EF <20%. Patient went into cardiac arrest on 2017. He regain spontaneous circulation after approximately 4 cycles of CPR and injections of epinephrine, sodium bicarbonate and calcium. Shortly thereafter, the patient became severely bradycardic and again became pulseless. CPR was reinitiated with ROSC after 2 cycles of CPR and 2 injections of epinephrine and sodium bicarbonate. Follow-up visit for symptom management of pain and altered mental status as well as clarification of medical treatment goals. Patient remains in the intensive care unit on mechanical vent; hemodynamically unstable secondary to poor cardiac function. Any attempt to decrease PEEP results in pulmonary edema. Having persistent renal impairment. Hepatic dysfunction has resulted in coagulopathy with prolonged INR. EEG showing diffuse slowing. Patient's prognosis is grim. Dr. Rivera spoke to the healthcare surrogate, Gabriella Hernández. Palliative care later spoke with the patient's ex- and 2 adult children. They are all in agreement that the patient would not want ongoing aggressive interventions at this time stating, " If he could talk to his right now, he would be so mad." The process of withdrawing artificial life support was discussed at length. Family requested patient's CODE STATUS be changed to NO CODE-DNR/DNI. If the patient were to go into cardiopulmonary arrest, they asked that he be allowed to pass peacefully and naturally at that time. Tentative plan for compassionate withdrawal of artificial life support tomorrow 07/10/2018. Discussed with Dr. Rivera and RNBecka. Exhibits have been placed on the patient's chart. Family/Friend Interactions: See interval history Advance Directives Advance Directives Date on File: 06/08/18 Health Care Surrogate Name and Number: Primary HCS: Janice Hernández Significant change in goals:: CODE STATUS changed to NO CODE-DNR/DNI. Tentative plan for compassionate withdrawal of artificial life support tomorrow morning 07/10/2018. Unsigned exhibits have been placed on the patient's chart Objective Vital Signs: Vital Signs 07/08/18 18:00 07/08/18 20:00 07/08/18 20:52 Temperature 98.2 F Pulse Rate 72 73 Respiratory Rate 12 12 Blood Pressure 109/73 Pulse Oximetry 100 98 07/08/18 22:00 07/09/18 00:00 07/09/18 02:00 Temperature 97.7 F Pulse Rate 70 71 74 Respiratory Rate 12 Blood Pressure 105/68 Pulse Oximetry 100 07/09/18 04:00 07/09/18 04:10 07/09/18 06:00 Temperature 99.1 F Pulse Rate 75 71 Respiratory Rate 12 12 Blood Pressure 107/67 Pulse Oximetry 100 07/09/18 08:00 07/09/18 08:33 07/09/18 10:00 Temperature 97.9 F Pulse Rate 72 72 Respiratory Rate 12 12 Blood Pressure Pulse Oximetry 100 100 07/09/18 11:48 07/09/18 12:00 07/09/18 14:00 Temperature 96.8 F L Pulse Rate 68 68 Respiratory Rate 12 12 Blood Pressure Pulse Oximetry 100 100 07/09/18 16:01 Temperature Pulse Rate Respiratory Rate 12 Blood Pressure Pulse Oximetry Intake & Output 07/08/18 07/09/18 07/09/18 18:59 06:59 18:59 Intake Total 1696 / 1696 2830 / 2830 3060 / 3060 Output Total 2100 / 2100 3050 / 3050 1725 / 1725 Balance -404 / -404 -220 / -220 1335 / 1335 Weight 99 kg Intake: IV 1400 / 1400 2300 / 2300 2400 / 2400 Bumex Inj 25 mg In 100 ml @ 0.5 100 / 100 MG/HR 2 mls/hr IV.CONT .Q24H COUNTS INCLUDE 234 BEDS AT THE [facility] Rx#:[id number] Versed Inj 50 mg In 50 ml @ 2 50 / 50 50 / 50 50 / 50 MG/HR 2 mls/hr IV.CONT TITRATE PRN Rx#:[id number] Sodium Bicarbonate 8.4% Inj 150 1000 / 1000 2000 / 2000 2000 / 2000 MEQ In Sterile Water for Inj 850 ML @ 150 mls/hr IV.CONT . Q6H40M COUNTS INCLUDE 234 BEDS AT THE [facility] Rx#:[id number] Buminate 5% Inj 250 ML @ 250 250 / 250 250 / 250 250 / 250 mls/hr IV.SIG Q12H COUNTS INCLUDE 234 BEDS AT THE [facility] Rx#: [id number] Calcium Gluconate Inj 1 GM In 100 / 100 NS Inj 90 ML @ 100 mls/hr IV. SIG ONCE ONE Rx#:[id number] fentaNYL 10 mcg/mL Premix Drip 0 / 0 2,500 mcg In 250 ml @ 50 MCG/HR 5 mls/hr IV.SIG TITRATE PRN Rx #:[id number] Tube Feeding 296 / 296 530 / 530 Water Bolus Amount 110 / 110 Other 550 / 550 Output: Urine Amount (Catheter) 1250 / 1250 2200 / 2200 1725 / 1725 Indwelling Urethral Catheter 1250 / 1250 2200 / 2200 1725 / 1725 Chest Tube Drainage 850 / 850 850 / 850 Right 850 / 850 850 / 850 Other: Other Intake Source Saline Solution Date of Last Bowel Movement 07/08/18 07/09/18 07/09/18 # Bowel Movements 1 1 1 # Incontinent Bowel Movements 1 Physical Exam: CONSTITUTIONAL/GENERAL: This is a middle-aged man who is currently sedated and intubated on mechanical ventilation TUBES/LINES/DRAINS: Right radial arterial line, right IJ central venous line, ETT, OGT, Walters catheter SKIN: Ecchymoses on upper extremities. No wounds seen anteriorly. Skin temperature appropriate. Not diaphoretic. HEAD: Atraumatic. Normocephalic. EYES: Pupils are dilated bilaterally. No scleral icterus. No injection or drainage. Fundi not examined. ENT: Unable to assess hearing nose without bleeding or purulent drainage. NECK: Trachea midline. Right IJ CVL in place CARDIOVASCULAR: Regular rate and rhythm without murmurs, gallops, or rubs. No JVD. Peripheral pulses symmetric. RESPIRATORY/CHEST: Intubated on vent. Breath sounds diminished, right greater than sign left. Bilateral rhonchi GASTROINTESTINAL: Abdomen soft, non-tender, nondistended. No hepato-splenomegaly , or palpable masses. No guarding. Bowel sounds present. GENITOURINARY: Without palpable bladder distension. Walters catheter in place. MUSCULOSKELETAL: Status post right BKA. Edema in upper and lower extremities bilaterally. LYMPHATICS: No palpable cervical or supraclavicular adenopathy. NEUROLOGICAL: Fixed and dilated pupils nonreactive, myoclonic jerks. Not breathing spontaneously over the set ventilator rate. PSYCHIATRIC: Unable to assess given unresponsiveness Diagnostic Tests Laboratory: Laboratory Results - last 72 hr 07/06/18 07/06/18 07/06/18 09:15 09:15 19:56 WBC RBC Hgb Hct MCV MCH MCHC RDW Plt Count MPV Prelim Diff (Auto) Neut % (Auto) Lymph % (Auto) [place] % (Auto) Eos % (Auto) Baso % (Auto) Neut # (Auto) Lymph # (Auto) [place] # (Auto) Eos # (Auto) Baso # (Auto) WBC Differential Seg Neuts % (Manual) Band Neuts % (Manual) Lymphocytes % (Manual) Monocytes % (Manual) Metamyelocytes % (Man) Abs Neuts (Manual) Differential Comment Toxic Granulation Platelet Estimate Platelet Morphology Heriberto Cells Keratocytes PT INR APTT Fibrinogen Puncture Site Patient Temperature O2 Saturation ABG pH ABG pCO2 ABG pO2 ABG HCO3 ABG O2 Content ABG Base Excess ABG Methemoglobin Hemoglobin Carboxyhemoglobin O2 Delivery Device Vent Setting Inspired O2 Critical Value Sodium Potassium Chloride Carbon Dioxide Anion Gap BUN Creatinine Estimated GFR POC Glucose 126 H Random Glucose Lactic Acid Calcium Prot Corrected Calcium Phosphorus Magnesium Total Bilirubin AST ALT Alkaline Phosphatase Troponin I B-Natriuretic Peptide Total Protein Albumin Pleural pH Pleural RBC Pleural Nuc Cells Pleural Neutrophils Pleural Lymphocytes Pleural Monocytes Pleural Eosinophils Pleural Mesothelial Pleural Fluid Comment Pleural Total Protein Pleural LDH Pleural Glucose Pleural Amylase VINAY Screen Neg Anti-Proteinase 3 Less than 1.0 Anti-Myeloperoxidase Less than 1.0 Blood Type Antibody Screen 07/07/18 07/07/18 07/07/18 00:30 00:30 00:30 WBC 10.1 RBC 2.96 L Hgb 9.5 L Hct 27.1 L MCV 91.6 MCH 32.0 MCHC 35.0 RDW 20.5 H Plt Count 216 MPV 8.0 Prelim Diff (Auto) Slide review pending Neut % (Auto) 73.3 H Lymph % (Auto) 23.3 [place] % (Auto) 2.9 Eos % (Auto) 0.1 Baso % (Auto) 0.4 Neut # (Auto) 7.4 Lymph # (Auto) 2.3 [place] # (Auto) 0.3 Eos # (Auto) 0.0 Baso # (Auto) 0.0 WBC Differential Manual diff final Seg Neuts % (Manual) 58 Band Neuts % (Manual) 13 H Lymphocytes % (Manual) 25 Monocytes % (Manual) 3 Metamyelocytes % (Man) 1 Abs Neuts (Manual) 7.3 Differential Comment . Toxic Granulation 1+ H Platelet Estimate Normal Platelet Morphology Normal Ashley Cells 1+ H Keratocytes Occ H PT INR APTT Fibrinogen Puncture Site Patient Temperature O2 Saturation ABG pH ABG pCO2 ABG pO2 ABG HCO3 ABG O2 Content ABG Base Excess ABG Methemoglobin Hemoglobin Carboxyhemoglobin O2 Delivery Device Vent Setting Inspired O2 Critical Value Sodium Potassium Chloride Carbon Dioxide Anion Gap BUN Creatinine Estimated GFR POC Glucose Random Glucose Lactic Acid 2.8 H Calcium Prot Corrected Calcium Phosphorus Magnesium Total Bilirubin AST ALT Alkaline Phosphatase Troponin I Less than 0.02 L B-Natriuretic Peptide Total Protein Albumin Pleural pH Pleural RBC Pleural Nuc Cells Pleural Neutrophils Pleural Lymphocytes Pleural Monocytes Pleural Eosinophils Pleural Mesothelial Pleural Fluid Comment Pleural Total Protein Pleural LDH Pleural Glucose Pleural Amylase VINAY Screen Anti-Proteinase 3 Anti-Myeloperoxidase Blood Type Antibody Screen 07/07/18 07/07/18 07/07/18 00:30 00:30 00:30 WBC RBC Hgb Hct MCV MCH MCHC RDW Plt Count MPV Prelim Diff (Auto) Neut % (Auto) Lymph % (Auto) [place] % (Auto) Eos % (Auto) Baso % (Auto) Neut # (Auto) Lymph # (Auto) [place] # (Auto) Eos # (Auto) Baso # (Auto) WBC Differential Seg Neuts % (Manual) Band Neuts % (Manual) Lymphocytes % (Manual) Monocytes % (Manual) Metamyelocytes % (Man) Abs Neuts (Manual) Differential Comment Toxic Granulation Platelet Estimate Platelet Morphology Ashley Cells Keratocytes PT 21.6 H INR 2.1 APTT 30.8 H Fibrinogen 132 L Puncture Site Patient Temperature O2 Saturation ABG pH ABG pCO2 ABG pO2 ABG HCO3 ABG O2 Content ABG Base Excess ABG Methemoglobin Hemoglobin Carboxyhemoglobin O2 Delivery Device Vent Setting Inspired O2 Critical Value Sodium 142 Potassium 5.0 Chloride 103 Carbon Dioxide 32.5 H Anion Gap 7 BUN 64 H Creatinine 2.31 H Estimated GFR 30 L POC Glucose Random Glucose 75 Lactic Acid Calcium 6.8 L* Prot Corrected Calcium 7.9 L Phosphorus 8.3 H Magnesium 2.2 Total Bilirubin 0.5 AST 425 H ALT 208 H Alkaline Phosphatase 249 H Troponin I B-Natriuretic Peptide Total Protein 5.0 L D Albumin 1.3 L Pleural pH Pleural RBC Pleural Nuc Cells Pleural Neutrophils Pleural Lymphocytes Pleural Monocytes Pleural Eosinophils Pleural Mesothelial Pleural Fluid Comment Pleural Total Protein Pleural LDH Pleural Glucose Pleural Amylase VINAY Screen Anti-Proteinase 3 Anti-Myeloperoxidase Blood Type O Negative Antibody Screen Negative 07/07/18 07/07/18 07/07/18 03:02 03:10 06:20 WBC RBC Hgb Hct MCV MCH MCHC RDW Plt Count MPV Prelim Diff (Auto) Neut % (Auto) Lymph % (Auto) [place] % (Auto) Eos % (Auto) Baso % (Auto) Neut # (Auto) Lymph # (Auto) [place] # (Auto) Eos # (Auto) Baso # (Auto) WBC Differential Seg Neuts % (Manual) Band Neuts % (Manual) Lymphocytes % (Manual) Monocytes % (Manual) Metamyelocytes % (Man) Abs Neuts (Manual) Differential Comment Toxic Granulation Platelet Estimate Platelet Morphology Heriberto Cells Keratocytes PT INR APTT Fibrinogen Puncture Site Art line Patient Temperature 98.6 O2 Saturation 98 ABG pH 7.50 H ABG pCO2 33 L ABG pO2 255 H ABG HCO3 25 ABG O2 Content 10.7 L ABG Base Excess 1.9 ABG Methemoglobin 1.1 Hemoglobin 7.3 L* Carboxyhemoglobin 1.5 O2 Delivery Device Ventilator Vent Setting See comment Inspired O2 100 Critical Value Yes Sodium 142 Potassium 4.7 Chloride 107 Carbon Dioxide 26.9 Anion Gap 8 BUN 63 H Creatinine 2.14 H Estimated GFR 33 L POC Glucose Random Glucose 58 L Lactic Acid Calcium 6.1 L* Prot Corrected Calcium 7.3 L* Phosphorus Magnesium Total Bilirubin 0.8 AST 361 H ALT 164 H Alkaline Phosphatase 210 H Troponin I Less than 0.02 L B-Natriuretic Peptide Total Protein 4.6 L Albumin 1.4 L Pleural pH 8.5 Pleural RBC Pleural Nuc Cells Pleural Neutrophils Pleural Lymphocytes Pleural Monocytes Pleural Eosinophils Pleural Mesothelial Pleural Fluid Comment Pleural Total Protein 1.1 Pleural LDH 70 Pleural Glucose 74 Pleural Amylase 10 VINAY Screen Anti-Proteinase 3 Anti-Myeloperoxidase Blood Type Antibody Screen 07/07/18 07/07/18 07/07/18 06:20 07:27 07:30 WBC RBC Hgb Hct MCV MCH MCHC RDW Plt Count MPV Prelim Diff (Auto) Neut % (Auto) Lymph % (Auto) [place] % (Auto) Eos % (Auto) Baso % (Auto) Neut # (Auto) Lymph # (Auto) [place] # (Auto) Eos # (Auto) Baso # (Auto) WBC Differential Seg Neuts % (Manual) Band Neuts % (Manual) Lymphocytes % (Manual) Monocytes % (Manual) Metamyelocytes % (Man) Abs Neuts (Manual) Differential Comment Toxic Granulation Platelet Estimate Platelet Morphology Heriberto Cells Keratocytes PT INR APTT Fibrinogen Puncture Site Patient Temperature O2 Saturation ABG pH ABG pCO2 ABG pO2 ABG HCO3 ABG O2 Content ABG Base Excess ABG Methemoglobin Hemoglobin Carboxyhemoglobin O2 Delivery Device Vent Setting Inspired O2 Critical Value Sodium Potassium Chloride Carbon Dioxide Anion Gap BUN Creatinine Estimated GFR POC Glucose 59 L Random Glucose Lactic Acid Calcium Prot Corrected Calcium Phosphorus Magnesium Total Bilirubin AST ALT Alkaline Phosphatase Troponin I Less than 0.02 L B-Natriuretic Peptide Total Protein Albumin Pleural pH Pleural RBC 112 H Pleural Nuc Cells 19 H Pleural Neutrophils 20 Pleural Lymphocytes 66 Pleural Monocytes 4 Pleural Eosinophils 4 Pleural Mesothelial 6 Pleural Fluid Comment Pleural Total Protein Pleural LDH Pleural Glucose Pleural Amylase VINAY Screen Anti-Proteinase 3 Anti-Myeloperoxidase Blood Type Antibody Screen 07/07/18 07/07/18 07/07/18 07:47 10:29 11:15 WBC RBC Hgb Hct MCV MCH MCHC RDW Plt Count MPV Prelim Diff (Auto) Neut % (Auto) Lymph % (Auto) [place] % (Auto) Eos % (Auto) Baso % (Auto) Neut # (Auto) Lymph # (Auto) [place] # (Auto) Eos # (Auto) Baso # (Auto) WBC Differential Seg Neuts % (Manual) Band Neuts % (Manual) Lymphocytes % (Manual) Monocytes % (Manual) Metamyelocytes % (Man) Abs Neuts (Manual) Differential Comment Toxic Granulation Platelet Estimate Platelet Morphology Heriberto Cells Keratocytes PT INR APTT Fibrinogen Puncture Site Art line Patient Temperature 98.6 O2 Saturation 89 L* ABG pH 7.56 H* ABG pCO2 30 L ABG pO2 58 L* ABG HCO3 27 H ABG O2 Content 11.2 L ABG Base Excess 4.4 H ABG Methemoglobin 1.4 Hemoglobin 9.0 L Carboxyhemoglobin 1.5 O2 Delivery Device Ventilator Vent Setting Prvc/ac Inspired O2 70 Critical Value Yes Sodium Potassium Chloride Carbon Dioxide Anion Gap BUN Creatinine Estimated GFR POC Glucose 131 H 75 Random Glucose Lactic Acid Calcium Prot Corrected Calcium Phosphorus Magnesium Total Bilirubin AST ALT Alkaline Phosphatase Troponin I B-Natriuretic Peptide Total Protein Albumin Pleural pH Pleural RBC Pleural Nuc Cells Pleural Neutrophils Pleural Lymphocytes Pleural Monocytes Pleural Eosinophils Pleural Mesothelial Pleural Fluid Comment Pleural Total Protein Pleural LDH Pleural Glucose Pleural Amylase VINAY Screen Anti-Proteinase 3 Anti-Myeloperoxidase Blood Type Antibody Screen 07/07/18 07/07/18 07/07/18 11:30 12:19 16:10 WBC RBC Hgb Hct MCV MCH MCHC RDW Plt Count MPV Prelim Diff (Auto) Neut % (Auto) Lymph % (Auto) [place] % (Auto) Eos % (Auto) Baso % (Auto) Neut # (Auto) Lymph # (Auto) [place] # (Auto) Eos # (Auto) Baso # (Auto) WBC Differential Seg Neuts % (Manual) Band Neuts % (Manual) Lymphocytes % (Manual) Monocytes % (Manual) Metamyelocytes % (Man) Abs Neuts (Manual) Differential Comment Toxic Granulation Platelet Estimate Platelet Morphology Ashley Cells Keratocytes PT INR APTT Fibrinogen Puncture Site Art line Patient Temperature 98.6 O2 Saturation 94 ABG pH 7.43 H ABG pCO2 42 ABG pO2 90 ABG HCO3 27 H ABG O2 Content 10.5 L ABG Base Excess 2.9 H ABG Methemoglobin 1.3 Hemoglobin 7.8 L* Carboxyhemoglobin 1.2 O2 Delivery Device Ventilator Vent Setting Inspired O2 60 Critical Value Yes Sodium 143 Potassium 4.7 Chloride 106 Carbon Dioxide 29.6 Anion Gap 7 BUN 64 H Creatinine 2.17 H Estimated GFR 32 L POC Glucose 54 L Random Glucose 63 L Lactic Acid Calcium 6.1 L* Prot Corrected Calcium 7.3 L* Phosphorus 7.2 H D Magnesium 2.1 Total Bilirubin 0.7 AST 241 H ALT 125 H Alkaline Phosphatase 197 H Troponin I Less than 0.02 L B-Natriuretic Peptide Total Protein 4.6 L Albumin 1.6 L Pleural pH Pleural RBC Pleural Nuc Cells Pleural Neutrophils Pleural Lymphocytes Pleural Monocytes Pleural Eosinophils Pleural Mesothelial Pleural Fluid Comment Pleural Total Protein Pleural LDH Pleural Glucose Pleural Amylase VINAY Screen Anti-Proteinase 3 Anti-Myeloperoxidase Blood Type Antibody Screen 07/07/18 07/07/18 07/07/18 16:33 21:29 21:47 WBC RBC Hgb Hct MCV MCH MCHC RDW Plt Count MPV Prelim Diff (Auto) Neut % (Auto) Lymph % (Auto) [place] % (Auto) Eos % (Auto) Baso % (Auto) Neut # (Auto) Lymph # (Auto) [place] # (Auto) Eos # (Auto) Baso # (Auto) WBC Differential Seg Neuts % (Manual) Band Neuts % (Manual) Lymphocytes % (Manual) Monocytes % (Manual) Metamyelocytes % (Man) Abs Neuts (Manual) Differential Comment Toxic Granulation Platelet Estimate Platelet Morphology Ashley Cells Keratocytes PT INR APTT Fibrinogen Puncture Site Patient Temperature O2 Saturation ABG pH ABG pCO2 ABG pO2 ABG HCO3 ABG O2 Content ABG Base Excess ABG Methemoglobin Hemoglobin Carboxyhemoglobin O2 Delivery Device Vent Setting Inspired O2 Critical Value Sodium Potassium Chloride Carbon Dioxide Anion Gap BUN Creatinine Estimated GFR POC Glucose 122 H 39 L* 88 Random Glucose Lactic Acid Calcium Prot Corrected Calcium Phosphorus Magnesium Total Bilirubin AST ALT Alkaline Phosphatase Troponin I B-Natriuretic Peptide Total Protein Albumin Pleural pH Pleural RBC Pleural Nuc Cells Pleural Neutrophils Pleural Lymphocytes Pleural Monocytes Pleural Eosinophils Pleural Mesothelial Pleural Fluid Comment Pleural Total Protein Pleural LDH Pleural Glucose Pleural Amylase VINAY Screen Anti-Proteinase 3 Anti-Myeloperoxidase Blood Type Antibody Screen 07/08/18 07/08/18 07/08/18 00:34 01:04 05:30 WBC RBC Hgb Hct MCV MCH MCHC RDW Plt Count MPV Prelim Diff (Auto) Neut % (Auto) Lymph % (Auto) [place] % (Auto) Eos % (Auto) Baso % (Auto) Neut # (Auto) Lymph # (Auto) [place] # (Auto) Eos # (Auto) Baso # (Auto) WBC Differential Seg Neuts % (Manual) Band Neuts % (Manual) Lymphocytes % (Manual) Monocytes % (Manual) Metamyelocytes % (Man) Abs Neuts (Manual) Differential Comment Toxic Granulation Platelet Estimate Platelet Morphology Heriberto Cells Keratocytes PT INR APTT Fibrinogen Puncture Site Patient Temperature O2 Saturation ABG pH ABG pCO2 ABG pO2 ABG HCO3 ABG O2 Content ABG Base Excess ABG Methemoglobin Hemoglobin Carboxyhemoglobin O2 Delivery Device Vent Setting Inspired O2 Critical Value Sodium 141 Potassium 4.4 Chloride 102 Carbon Dioxide 30.1 Anion Gap 9 BUN 70 H Creatinine 2.39 H Estimated GFR 29 L POC Glucose 56 L 126 H Random Glucose 61 L Lactic Acid Calcium 5.8 L* Prot Corrected Calcium 7.0 L* Phosphorus Magnesium 1.9 Total Bilirubin AST ALT Alkaline Phosphatase Troponin I B-Natriuretic Peptide Total Protein 4.5 L Albumin Pleural pH Pleural RBC Pleural Nuc Cells Pleural Neutrophils Pleural Lymphocytes Pleural Monocytes Pleural Eosinophils Pleural Mesothelial Pleural Fluid Comment Pleural Total Protein Pleural LDH Pleural Glucose Pleural Amylase VINAY Screen Anti-Proteinase 3 Anti-Myeloperoxidase Blood Type Antibody Screen 07/08/18 07/08/18 07/08/18 05:36 06:16 08:16 WBC RBC Hgb Hct MCV MCH MCHC RDW Plt Count MPV Prelim Diff (Auto) Neut % (Auto) Lymph % (Auto) [place] % (Auto) Eos % (Auto) Baso % (Auto) Neut # (Auto) Lymph # (Auto) [place] # (Auto) Eos # (Auto) Baso # (Auto) WBC Differential Seg Neuts % (Manual) Band Neuts % (Manual) Lymphocytes % (Manual) Monocytes % (Manual) Metamyelocytes % (Man) Abs Neuts (Manual) Differential Comment Toxic Granulation Platelet Estimate Platelet Morphology Heriberto Cells Keratocytes PT INR APTT Fibrinogen Puncture Site Patient Temperature O2 Saturation ABG pH ABG pCO2 ABG pO2 ABG HCO3 ABG O2 Content ABG Base Excess ABG Methemoglobin Hemoglobin Carboxyhemoglobin O2 Delivery Device Vent Setting Inspired O2 Critical Value Sodium Potassium Chloride Carbon Dioxide Anion Gap BUN Creatinine Estimated GFR POC Glucose 64 L 119 H 84 Random Glucose Lactic Acid Calcium Prot Corrected Calcium Phosphorus Magnesium Total Bilirubin AST ALT Alkaline Phosphatase Troponin I B-Natriuretic Peptide Total Protein Albumin Pleural pH Pleural RBC Pleural Nuc Cells Pleural Neutrophils Pleural Lymphocytes Pleural Monocytes Pleural Eosinophils Pleural Mesothelial Pleural Fluid Comment Pleural Total Protein Pleural LDH Pleural Glucose Pleural Amylase VINAY Screen Anti-Proteinase 3 Anti-Myeloperoxidase Blood Type Antibody Screen 07/08/18 07/08/18 07/08/18 11:40 12:22 17:19 WBC RBC Hgb Hct MCV MCH MCHC RDW Plt Count MPV Prelim Diff (Auto) Neut % (Auto) Lymph % (Auto) [place] % (Auto) Eos % (Auto) Baso % (Auto) Neut # (Auto) Lymph # (Auto) [place] # (Auto) Eos # (Auto) Baso # (Auto) WBC Differential Seg Neuts % (Manual) Band Neuts % (Manual) Lymphocytes % (Manual) Monocytes % (Manual) Metamyelocytes % (Man) Abs Neuts (Manual) Differential Comment Toxic Granulation Platelet Estimate Platelet Morphology Heriberto Cells Keratocytes PT INR APTT Fibrinogen Puncture Site Patient Temperature O2 Saturation ABG pH ABG pCO2 ABG pO2 ABG HCO3 ABG O2 Content ABG Base Excess ABG Methemoglobin Hemoglobin Carboxyhemoglobin O2 Delivery Device Vent Setting Inspired O2 Critical Value Sodium Potassium Chloride Carbon Dioxide Anion Gap BUN Creatinine Estimated GFR POC Glucose 64 L 127 H 60 L Random Glucose Lactic Acid Calcium Prot Corrected Calcium Phosphorus Magnesium Total Bilirubin AST ALT Alkaline Phosphatase Troponin I B-Natriuretic Peptide Total Protein Albumin Pleural pH Pleural RBC Pleural Nuc Cells Pleural Neutrophils Pleural Lymphocytes Pleural Monocytes Pleural Eosinophils Pleural Mesothelial Pleural Fluid Comment Pleural Total Protein Pleural LDH Pleural Glucose Pleural Amylase VINAY Screen Anti-Proteinase 3 Anti-Myeloperoxidase Blood Type Antibody Screen 07/08/18 07/08/18 07/08/18 18:07 21:36 22:11 WBC RBC Hgb Hct MCV MCH MCHC RDW Plt Count MPV Prelim Diff (Auto) Neut % (Auto) Lymph % (Auto) [place] % (Auto) Eos % (Auto) Baso % (Auto) Neut # (Auto) Lymph # (Auto) [place] # (Auto) Eos # (Auto) Baso # (Auto) WBC Differential Seg Neuts % (Manual) Band Neuts % (Manual) Lymphocytes % (Manual) Monocytes % (Manual) Metamyelocytes % (Man) Abs Neuts (Manual) Differential Comment Toxic Granulation Platelet Estimate Platelet Morphology Ashley Cells Keratocytes PT INR APTT Fibrinogen Puncture Site Patient Temperature O2 Saturation ABG pH ABG pCO2 ABG pO2 ABG HCO3 ABG O2 Content ABG Base Excess ABG Methemoglobin Hemoglobin Carboxyhemoglobin O2 Delivery Device Vent Setting Inspired O2 Critical Value Sodium Potassium Chloride Carbon Dioxide Anion Gap BUN Creatinine Estimated GFR POC Glucose 129 H 61 L 163 H Random Glucose Lactic Acid Calcium Prot Corrected Calcium Phosphorus Magnesium Total Bilirubin AST ALT Alkaline Phosphatase Troponin I B-Natriuretic Peptide Total Protein Albumin Pleural pH Pleural RBC Pleural Nuc Cells Pleural Neutrophils Pleural Lymphocytes Pleural Monocytes Pleural Eosinophils Pleural Mesothelial Pleural Fluid Comment Pleural Total Protein Pleural LDH Pleural Glucose Pleural Amylase VINAY Screen Anti-Proteinase 3 Anti-Myeloperoxidase Blood Type Antibody Screen 07/09/18 07/09/18 07/09/18 00:56 04:44 06:00 WBC RBC Hgb Hct MCV MCH MCHC RDW Plt Count MPV Prelim Diff (Auto) Neut % (Auto) Lymph % (Auto) [place] % (Auto) Eos % (Auto) Baso % (Auto) Neut # (Auto) Lymph # (Auto) [place] # (Auto) Eos # (Auto) Baso # (Auto) WBC Differential Seg Neuts % (Manual) Band Neuts % (Manual) Lymphocytes % (Manual) Monocytes % (Manual) Metamyelocytes % (Man) Abs Neuts (Manual) Differential Comment Toxic Granulation Platelet Estimate Platelet Morphology Heriberto Cells Keratocytes PT INR APTT Fibrinogen Puncture Site Patient Temperature O2 Saturation ABG pH ABG pCO2 ABG pO2 ABG HCO3 ABG O2 Content ABG Base Excess ABG Methemoglobin Hemoglobin Carboxyhemoglobin O2 Delivery Device Vent Setting Inspired O2 Critical Value Sodium Potassium Chloride Carbon Dioxide Anion Gap BUN Creatinine Estimated GFR POC Glucose 93 87 Random Glucose Lactic Acid Calcium Prot Corrected Calcium Phosphorus Magnesium Total Bilirubin AST ALT Alkaline Phosphatase Troponin I B-Natriuretic Peptide 1969 H Total Protein Albumin Pleural pH Pleural RBC Pleural Nuc Cells Pleural Neutrophils Pleural Lymphocytes Pleural Monocytes Pleural Eosinophils Pleural Mesothelial Pleural Fluid Comment Pleural Total Protein Pleural LDH Pleural Glucose Pleural Amylase IVNAY Screen Anti-Proteinase 3 Anti-Myeloperoxidase Blood Type Antibody Screen 07/09/18 07/09/18 07/09/18 06:00 06:37 09:53 WBC RBC Hgb Hct MCV MCH MCHC RDW Plt Count MPV Prelim Diff (Auto) Neut % (Auto) Lymph % (Auto) [place] % (Auto) Eos % (Auto) Baso % (Auto) Neut # (Auto) Lymph # (Auto) [place] # (Auto) Eos # (Auto) Baso # (Auto) WBC Differential Seg Neuts % (Manual) Band Neuts % (Manual) Lymphocytes % (Manual) Monocytes % (Manual) Metamyelocytes % (Man) Abs Neuts (Manual) Differential Comment Toxic Granulation Platelet Estimate Platelet Morphology Heriberto Cells Keratocytes PT INR APTT Fibrinogen Puncture Site Patient Temperature O2 Saturation ABG pH ABG pCO2 ABG pO2 ABG HCO3 ABG O2 Content ABG Base Excess ABG Methemoglobin Hemoglobin Carboxyhemoglobin O2 Delivery Device Vent Setting Inspired O2 Critical Value Sodium 141 Potassium 3.9 Chloride 99 Carbon Dioxide 33.8 H Anion Gap 8 BUN 69 H Creatinine 2.36 H Estimated GFR 29 L POC Glucose 89 72 Random Glucose 88 Lactic Acid Calcium 5.7 L* Prot Corrected Calcium 6.9 L* Phosphorus Magnesium Total Bilirubin AST ALT Alkaline Phosphatase Troponin I B-Natriuretic Peptide Total Protein 4.5 L Albumin Pleural pH Pleural RBC Pleural Nuc Cells Pleural Neutrophils Pleural Lymphocytes Pleural Monocytes Pleural Eosinophils Pleural Mesothelial Pleural Fluid Comment Pleural Total Protein Pleural LDH Pleural Glucose Pleural Amylase VINAY Screen Anti-Proteinase 3 Anti-Myeloperoxidase Blood Type Antibody Screen 07/09/18 07/09/18 07/09/18 13:39 14:20 16:25 WBC RBC Hgb Hct MCV MCH MCHC RDW Plt Count MPV Prelim Diff (Auto) Neut % (Auto) Lymph % (Auto) [place] % (Auto) Eos % (Auto) Baso % (Auto) Neut # (Auto) Lymph # (Auto) [place] # (Auto) Eos # (Auto) Baso # (Auto) WBC Differential Seg Neuts % (Manual) Band Neuts % (Manual) Lymphocytes % (Manual) Monocytes % (Manual) Metamyelocytes % (Man) Abs Neuts (Manual) Differential Comment Toxic Granulation Platelet Estimate Platelet Morphology Heriberto Cells Keratocytes PT INR APTT Fibrinogen Puncture Site Patient Temperature O2 Saturation ABG pH ABG pCO2 ABG pO2 ABG HCO3 ABG O2 Content ABG Base Excess ABG Methemoglobin Hemoglobin Carboxyhemoglobin O2 Delivery Device Vent Setting Inspired O2 Critical Value Sodium Potassium Chloride Carbon Dioxide Anion Gap BUN Creatinine Estimated GFR POC Glucose 67 L 174 H 88 Random Glucose Lactic Acid Calcium Prot Corrected Calcium Phosphorus Magnesium Total Bilirubin AST ALT Alkaline Phosphatase Troponin I B-Natriuretic Peptide Total Protein Albumin Pleural pH Pleural RBC Pleural Nuc Cells Pleural Neutrophils Pleural Lymphocytes Pleural Monocytes Pleural Eosinophils Pleural Mesothelial Pleural Fluid Comment Pleural Total Protein Pleural LDH Pleural Glucose Pleural Amylase VINAY Screen Anti-Proteinase 3 Anti-Myeloperoxidase Blood Type Antibody Screen Result Diagrams: 07/07/18 00:30 07/09/18 06:00 Microbiology: Microbiology 07/07/18 06:20 Gram Stain - Final Fluid - Pleural fluid Body Fluid Culture - Preliminary No growth in 48 hours 06/17/18 12:07 Fungal Smear - Final Wound - Leg No fungal elements seen Fungal Culture - Preliminary No growth in 3 weeks 06/17/18 12:07 Acid Fast Bacilli Smear - Final Wound - Leg No acid fast bacilli seen Mycobacterial Culture - Preliminary No growth in 3 weeks 06/02/18 18:48 Acid Fast Bacilli Smear - Final Wound - Foot No acid fast bacilli seen Mycobacterial Culture - Preliminary No growth in 5 weeks Imaging: Venous Doppler Study 06/02/18 15:46 CONCLUSION: 1. No sonographic evidence of lower extremity DVT. 2. Bilateral lower extremity subcutaneous edema. 3. Multiple lymph nodes seen in both groins, some of which are abnormally enlarged. Recommend clinical correlation. Foot X-Ray 06/02/18 15:52 CONCLUSION: Extensive subcutaneous air. No bone fracture or dislocation Abdomen/Bladder Ultrasound 07/05/18 00:00 CONCLUSION: 1. Increased cortical echogenicity in both kidneys suggesting medical renal disease 2. Multiple nonobstructing calculi in the collecting system of the right kidney. The largest in the midpole measures 5 mm. 3. There appear to be 2 renal cortical cyst in the left kidney, one in the upper pole and the larger, 1.7 cm lesion in the lower pole. 4. Lateral to the left kidney, there is a hypoechoic but heterogeneous 6.7 x 4.0 x 3.8 cm lesion which appears to be discrete from the kidney itself. This area contains internal vascularity and is concerning for a possible mass lesion. CT scan of the abdomen with IV and oral contrast is recommended for further characterization. 5. Urinary bladder is decompressed with a Walters catheter. Chest X-Ray 07/07/18 06:02 CONCLUSION: Suspected bilateral pleural effusions being worse on the right. Increased density in the mid and lower lungs likely related to atelectasis or consolidation in these regions. Cardiomegaly. Procedures: 06/02/2018: Endotracheal intubation 06/02/2018: Left radial arterial line placement 06/02/2018: Left subclavian central line placement 06/03/2018 Right BKA 06/04/2018: Extubation 07/07/2018: Endotracheal intubation 07/07/2018: Right arterial line placement 07/07/2018: Right IJ central line placement 07/07/2018: Left-sided chest tube placed Assessment and Plan Pertinent Non-Medical Issues: Psychosocial: Patient was born in [place], [place]. He currently lives in [place], [place]. He is currently ; he was to his ex- ( Krystle) for approximately 21 years. Together they had 2 sons. Guillermo is 27 years old and has autism. Mikhail is 21 years old. Spiritual: Patient was raised in the Confucianism adan Legal: Healthcare surrogate designation form completed on 06/08/2018. Document are accessible in the patient's chart; copy faxed to HIM to be scanned into the patient's EMR Ethical issues impacting care: No known ethical issues impacting care at this time Important Contacts: Janice Hernández, friends/HCS: [phone] Krystle Hill, ex-: [phone] Ron Harris, friend: [phone] Prognosis: Patient remains critically ill with hemodynamic instability and dependence on mechanical ventilation. There appears to have been a severe anoxic brain injury and the presence of discoordinated myoclonic activity. Code Status: No Code DNR Plan: * NO CODE * Family requested patient's CODE STATUS be changed to NO CODE-DNR/DNI. If the patient were to go into cardiopulmonary arrest, they asked that he be allowed to pass peacefully and naturally at that time. * Patient is unable to participate in medical decision making given his level of responsiveness. Healthcare surrogate designation form completed on 06/08/2018 identifying the patient's friend, Gabriella Hernández, as his medical decision maker . * HCS designation are accessible in the patient's chart; a copy of the document was faxed to HIM to be scanned into the patient's EMR * Dr. Rivera spoke to the healthcare surrogate, Gabriella Hernández. Palliative care later spoke with the patient's ex- and 2 adult children. They are all in agreement that the patient would not want ongoing aggressive interventions at this time stating, " If he could talk to his right now, he would be so mad." The process of withdrawing artificial life support was discussed at length. Tentative plan for compassionate withdrawal of artificial life support tomorrow morning 07/10/2018. Unsigned exhibits have been placed on the patient's chart. Medical team is supportive of family's decision. * Discussed patient with Dr. Rivera and RN, Becka * Symptom management: Pain: Multifactoral. Potential causes of pain include recent cardiopulmonary resuscitation, invasive lines, back pain, chronic knee pain, recent BKA immobility etc. Patient is currently sedated on fentanyl and Versed drips. Prior to recent cardiac arrest patient was controlling pain with Slinger 7.5/325 every 4 hours PRN. Patient was receiving approximately 4 doses in a 24-hour period. We will continue to monitor and make recommendations as indicated. Altered mental status: Patient was showing signs of anoxic brain injury status post cardiac arrest yesterday 07/06/2018. Not a candidate for therapeutic hypothermia due to sepsis and C. difficile colitis. Pupils dilated at 8 mm and occasional myoclonic jerking was noted. We will continue to monitor. EEG showing diffuse slowing * Palliative care will continue to follow this patient throughout his hospitalization to establish trust, assist with symptom management and clarification of medical treatment goals. Attestation Attestation: To help prompt me to consider important information that might be impacting today's encounter and assessment, information from prior notes written by myself or my colleagues may have been "brought forward" into today's note. My signature on this note, however, is an attestation that I personally performed the exam, history, and/or decision-making noted today, and, unless otherwise indicated, the interactions with patient, family, and staff as well as the review of records all occurred today. I also attest that the listed assessment and stated plan reflect my best clinical judgment today based on the combination of historical information, prior notes, and today's exam/ interactions. When time spent is documented, it refers only to time spent today by the signer, or if indicated, combined time spent today by collaborating physician/nurse practitioner.
--- NOTE | 2018-07-09 19:36 | P.PNNP ---
Subjective Interval history: Patient remain on the vent. and sedated. Physical Exam Vital signs: Vital Signs 07/08/18 20:00 07/08/18 20:52 07/08/18 22:00 Temperature 98.2 F Pulse Rate 73 70 Respiratory Rate 12 12 Blood Pressure 109/73 Pulse Oximetry 100 98 07/09/18 00:00 07/09/18 02:00 07/09/18 04:00 Temperature 97.7 F 99.1 F Pulse Rate 71 74 75 Respiratory Rate 12 12 Blood Pressure 105/68 107/67 Pulse Oximetry 100 07/09/18 04:10 07/09/18 06:00 07/09/18 08:00 Temperature 97.9 F Pulse Rate 71 72 Respiratory Rate 12 12 Blood Pressure Pulse Oximetry 100 100 07/09/18 08:33 07/09/18 10:00 07/09/18 11:48 Temperature Pulse Rate 72 Respiratory Rate 12 12 Blood Pressure Pulse Oximetry 100 100 07/09/18 12:00 07/09/18 14:00 07/09/18 16:00 Temperature 96.8 F L 98.2 F Pulse Rate 68 68 70 Respiratory Rate 12 12 Blood Pressure Pulse Oximetry 100 100 07/09/18 16:01 07/09/18 18:00 Temperature Pulse Rate 78 Respiratory Rate 12 Blood Pressure Pulse Oximetry Intake & Output 07/09/18 07/09/18 07/10/18 06:59 18:59 06:59 Intake Total 2830 / 2830 4240 / 4240 Output Total 3050 / 3050 4515 / 4515 Balance -220 / -220 -275 / -275 Weight 99 kg Intake: IV 2300 / 2300 2650 / 2650 Bumex Inj 25 mg In 100 ml @ 0.5 100 / 100 MG/HR 2 mls/hr IV.CONT .Q24H [facility] Rx#:[id number] Versed Inj 50 mg In 50 ml @ 2 50 / 50 50 / 50 MG/HR 2 mls/hr IV.CONT TITRATE PRN Rx#:[id number] Sodium Bicarbonate 8.4% Inj 150 2000 / 2000 2000 / 2000 MEQ In Sterile Water for Inj 850 ML @ 150 mls/hr IV.CONT . Q6H40M [facility] Rx#:[id number] Buminate 5% Inj 250 ML @ 250 250 / 250 250 / 250 mls/hr IV.SIG Q12H [facility] Rx#: [id number] fentaNYL 10 mcg/mL Premix Drip 250 / 250 2,500 mcg In 250 ml @ 50 MCG/HR 5 mls/hr IV.SIG TITRATE PRN Rx #:[id number] Tube Feeding 530 / 530 870 / 870 Water Bolus Amount 170 / 170 Other 550 / 550 Output: Urine Amount (Catheter) 2200 / 2200 3575 / 3575 Indwelling Urethral Catheter 2200 / 2200 3575 / 3575 Chest Tube Drainage 850 / 850 940 / 940 Right 850 / 850 940 / 940 Other: Other Intake Source Saline Solution Date of Last Bowel Movement 07/09/18 07/09/18 # Bowel Movements 1 1 # Incontinent Bowel Movements 1 Narrative: GENERAL: Orally Intubated. Responding to commands NECK: Supple, trachea midline. No JVD. Right IJ CVC CARDIOVASCULAR: Bradycardia. Regular rhythm without murmurs, gallops, or rubs. Chest tube RESPIRATORY: Breath sounds diminished. GASTROINTESTINAL: Abdomen soft, non-tender, nondistended. OG tube GENITOURINARY: Indwelling Walters catheter, light colored urine MUSCULOSKELETAL: No cyanosis,generalized edema. - Urinary Catheter Management Indwelling Urethral Catheter Cath placed during this visit: yes, but has since been removed by the nurse Urethral indwelling: Yes Reason for continuing: Hourly intake/output Insertion date: 07/05/18 Insertion time: 13:59 Removal date: 07/06/18 Removal time: 14:57 Assessment and Plan - Assessment (1) Hyperkalemia Code(s): E87.5 - Hyperkalemia Status: Acute (2) CHF (congestive heart failure) Code(s): I50.9 - Heart failure, unspecified Status: Acute Qualifiers: Heart failure type: unspecified Heart failure chronicity: acute on chronic Qualified Code(s): I50.9 - Heart failure, unspecified (3) YOLY (acute kidney injury) Code(s): N17.9 - Acute kidney failure, unspecified Status: Acute (4) Status post below knee amputation Code(s): Z89.519 - Acquired absence of unspecified leg below knee Status: Acute - Plan Patient remain intubated and sedated. Creatinine now stable at 2.3. On Bumex infusion. Urine out put is good. Seen by palliative care.' Avoid Nephrotoxins.
[2018-07-10] MEDS: Sodium Bicarbonate 8.4% Inj 150 MEQ in Water for Inj, Sterile 850 ML IV.CONT SCH ×4 (00:02→11:37)
[2018-07-10 05:01] LABS: Calcium 5.9 mg/dL (8.5-10.1); Carbon Dioxide 38.2 meq/L (21.0-32.0); Potassium 3.5 meq/L (3.5-5.1)
[2018-07-10 05:24] VITALS: TEMP 97.6
[2018-07-10] MEDS: Midazolam 50 MG/50 ML Inj 50 MG/50 ML BAG IV.CONT PRN (05:25)
[2018-07-10 05:26] LABS: Total Protein 4.5 g/dL (6.4-8.2)
[2018-07-10 06:32] VITALS: PULSE 63
[2018-07-10] MEDS: Insulin NovoLOG Aspart Correctional Sugar Inj SQ SCH ×2 (09:31→11:37)
[2018-07-10] MEDS: Albumin Human 5% Inj 250 ML IV.SIG SCH (09:31)
[2018-07-10] MEDS: Senna/Docusate Sodium 8.6/50 MG Tablet PO SCH (09:32)
[2018-07-10] MEDS: Carvedilol 12.5 MG Tablet PO SCH (09:32)
[2018-07-10] MEDS: Calcium Acetate 667 MG Capsule PO SCH (09:32)
[2018-07-10] MEDS: Calcium Carbonate 500 MG Tablet PO SCH (09:32)
[2018-07-10] MEDS: Famotidine 20 MG Tablet PO SCH (09:32)
[2018-07-10] MEDS: Sodium Chloride 0.9% 2 ML Flush BID IV.FLUSH SCH (09:33)
[2018-07-10] MEDS: Collagenase Oint 30 GM Tube TOPICAL SCH ×2 (09:33)
--- NOTE | 2018-07-10 09:47 | P.PNCC ---
Subjective Subjective Remarks/Hospital Course: 53-year-old male presented to emergency department today with complaints of shortness of breath, fatigue, and extensive draining edema of the lower extremities bilaterally. Per chart review his symptoms started 5 days ago and the swelling of his lower legs and feet have progressively gotten worse over the past 5 days. The patient also has had pain in the back of both lower extremities from the knees to the toes. He denied chest pain. He has a history of type-II diabetes mellitus and congestive heart failure. He has not taken any of his regular medications for the past 3 weeks due to financial limitations. During the examination in the emergency department he was found to have gangrene of the right foot and was emergently taken to operating room for an incision and drainage with debridement of foot and ankle. Postoperatively he remains intubated and was admitted to ICU for critical care management. SUBJ: s/p Incision drainage debridement foot ankle and distal leg, for gas gangrene. Remains in septic shock on Levophed. Remains intubated sedated. Currently on vancomycin and Zosyn I have added clindamycin. Cultures and wound cultures pending . Vascular surgery consult also pending. Received 2 units PRBC for hemoglobin of 5.3 06/04/18: Patient had been weaned off all pressors. Wakes up easily follows commands. 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 WBC count remains elevated but renal function improving. Hemoglobin stable. Multiple blood cultures growing E. coli. Wound culture with E. coli, MRSA, gram-negative rods. Continue Zosyn and vancomycin 06/05: Remains off vasopressors. Alert and conversant. Encephalopathy clearing. Blood and wound organisms identified, antibiotic coverage appropriate. 06/06: Normotensive. Afebrile. Urine output acceptable. Septic picture largely over. Base deficit largely corrected. Blood sugar trending higher will convert to full diabetic diet. 07/06: Responded to [facility] on the fourth floor. Per nursing report patient was complaining of shortness of breath, then became unresponsive and pulseless. CODE BLUE was activated and CPR was initiated. Upon my arrival I have immediately intubated patient with ET tube during the CPR, patient regained spontaneous circulation after approximately 4 cycles of CPR and injections of epinephrine and sodium bicarbonate and calcium. Shortly after that he became severely bradycardic with loss of pulsation again and new CPR cycle was initiated after 2 cycles of CPR and 2 injections of epinephrine sodium bicarbonate patient regained spontaneous circulation again and was transferred to intensive care unit on epinephrine drip. The central line and A-line were placed in the [facility], however patient has a signs of anoxic brain damage already, and dilated pupils at 8 mm as well as occasional myoclonic jerks. 07/07: He remains unresponsive. Vasopressor support now at 1 devonte per minute epinephrine. He is tepid but adequately perfused. Some spontaneous urine production has occurred. Acid-base balance is normal. Electrolyte levels are acceptable. Now ventilator dependent and intubated oral tracheal route. We will continue ongoing resuscitative efforts while following his electrolytes and acid-base balance. 07/08: Continues with some spontaneous urine output. Although vasopressor requirements have been reduced his underlying biventricular dysfunction and severe mitral and tricuspid regurgitation limit our ability to aggressively volume load this individual. Ultimately, his poor heart will likely dictate his prognosis. 07/09: Patient continues to deteriorate clinically. Severe left heart failure with pulmonary edema responsive to PEEP. Renal failure persists, coagulation profile prolonged due to hepatic dysfunction, EEG with diffuse slowing. Patient remains in critical condition with very little hope for meaningful recovery in the context of end-stage heart disease. 07/09: This gentleman remains in end-stage systolic heart failure, renal failure , hepatic dysfunction and is actively dying of the sequelae of a severe leg infection. He will not survive this hospitalization in the family are considering compassionate extubation and withdrawal of artificial support. I concur wholeheartedly with that plan of care as this gentleman is indeed suffering immensely from multiple chronic pain issues while on mechanical ventilation he preferred to never have. I have talked in detail with his DURABLE POWER OF SEISMOMETER OPERATOR for healthcare and other family. They will make their decision today after a son visits. Objective Vital Signs / I&O: Vital Signs 07/09/18 10:00 07/09/18 11:48 07/09/18 12:00 Temperature 96.8 F L Pulse Rate 72 68 Respiratory Rate 12 12 Pulse Oximetry 100 100 07/09/18 14:00 07/09/18 16:00 07/09/18 16:01 Temperature 98.2 F Pulse Rate 68 70 Respiratory Rate 12 12 Pulse Oximetry 100 07/09/18 18:00 07/09/18 20:00 07/09/18 20:51 Temperature 98.1 F Pulse Rate 78 73 Respiratory Rate 12 12 Pulse Oximetry 100 100 07/09/18 22:00 07/10/18 00:00 07/10/18 00:21 Temperature 98.2 F Pulse Rate 71 74 Respiratory Rate 12 12 Pulse Oximetry 100 100 07/10/18 02:00 07/10/18 04:00 07/10/18 04:22 Temperature 97.6 F Pulse Rate 70 65 Respiratory Rate 12 12 Pulse Oximetry 100 100 07/10/18 06:00 07/10/18 08:13 Temperature Pulse Rate 63 Respiratory Rate 12 Pulse Oximetry 100 Intake & Output 07/09/18 07/10/18 07/10/18 18:59 06:59 18:59 Intake Total 4240 / 4240 2300 / 2300 Output Total 4515 / 4515 5075 / 5075 Balance -275 / -275 -2775 / -2775 Weight 93.9 kg Intake: IV 2650 / 2650 2300 / 2300 Bumex Inj 25 mg In 100 ml @ 0.5 100 / 100 MG/HR 2 mls/hr IV.CONT .Q24H [facility] Rx#:[id number] Versed Inj 50 mg In 50 ml @ 2 50 / 50 50 / 50 MG/HR 2 mls/hr IV.CONT TITRATE PRN Rx#:[id number] Sodium Bicarbonate 8.4% Inj 150 2000 / 2000 2000 / 2000 MEQ In Sterile Water for Inj 850 ML @ 150 mls/hr IV.CONT . Q6H40M [facility] Rx#:[id number] Buminate 5% Inj 250 ML @ 250 250 / 250 250 / 250 mls/hr IV.SIG Q12H [facility] Rx#: [id number] fentaNYL 10 mcg/mL Premix Drip 250 / 250 2,500 mcg In 250 ml @ 50 MCG/HR 5 mls/hr IV.SIG TITRATE PRN Rx #:[id number] Oral 0 / 0 Tube Feeding 870 / 870 Water Bolus Amount 170 / 170 Other 550 / 550 Output: Urine Amount (Catheter) 3575 / 3575 4225 / 4225 Indwelling Urethral Catheter 3575 / 3575 4225 / 4225 Chest Tube Drainage 940 / 940 850 / 850 Right 940 / 940 850 / 850 Other: Other Intake Source Saline Solution Date of Last Bowel Movement 07/09/18 07/10/18 # Bowel Movements 1 3 Result Diagrams: 07/07/18 00:30 07/10/18 03:57 Objective Remarks: - Constitutional Intubated, sedated - Routine HEENT Exam Head: Present: normocephalic, atraumatic Eye: Present: Pupils 2 mm fixed and dilated bilaterally ENT: Endotracheally intubated. - Routine Neck Exam Present: supple. No JVD - Routine Respiratory Exam Present: Persistent scattered rhonchi bilaterally, some crackles, decreased breath sounds at the right base. - Routine Cardiovascular Exam Present: RRR, S1, S2. No JVD. - Routine Abdominal Exam Present: soft, normoactive bowel sounds, no guarding. Absent: tenderness, distended - Routine Extremities Exam Status post right BKA, wound clean without discharge or bleeding. L heel ulcer - Routine Neurological Exam Opens eyes to loud voice, not breathing spontaneously over the set ventilator rate. Does appear to recognize people and nods head to questions from people he knows Assessment and Plan - Assessment and Plan Plan: A/P Neuro: Status post cardiac arrest Signs of anoxic brain damage -Not a candidate for therapeutic hypothermia due to sepsis and C. difficile colitis -EEG -CT head when hemodynamically improved and more stabilized -Neurology and palliative care consultation -EEG with diffuse bilateral slowing, no focal abnormal activity Resp: Respiratory failure Large pleural effusion -Respiratory failure -Mechanical ventilation -No weaning until neurologically and hemodynamically stable -Vent bundle -DuoNeb's as needed -Thoracentesis for pleural effusion drainage, pending coags -Continued large output from right thoracostomy tube. CVS/ID Septic shock Gangrene of the right foot -Broad-spectrum antibiotic with vancomycin and Zosyn, completed per ID recommendation -Multiple blood cultures with E. coli, wound culture with E. coli, gram- negative ankur, MRSA -Status post I&D and debridement, status post BKA by Dr. Cooney -Continue IV fluid and blood product resuscitation -Epinephrine drip to keep map above 65, transition to Levophed if tolerated -Taper epinephrine. HEME Blood loss anemia -Monitor H&H and transfuse to keep hemoglobin above 7 : Acute kidney injury -Strict I's and O's. IV fluid hydration -Monitor electrolytes and creatinine level -Creatinine has been worsening -Nephrology consultation appreciated ID: Gangrenous right foot. Bacteremia C. difficile colitis -Vancomycin and Zosyn was completed per ID recommendation -P.o. vancomycin will be continued for 2 weeks GI: -Nepro tube feeds Endo: Diabetes mellitus -Insulin sliding scale DVT GI prophylaxis -Teds SCDs -Heparin subcu -Pepcid Overall impression: Patient remains critically ill with hemodynamic instability and dependence on mechanical ventilation. Any attempts to decrease PEEP results and pulmonary edema. EEG has ruled out nonconvulsive seizures. He remains in critical condition with unstable hemodynamics made worse by is very poor chronic cardiac function. Renal failure persists. Hepatic dysfunction has resulted in coagulopathy with prolonged INR. Patient continues to deteriorate and is in considerable pain requiring large amounts of analgesia and sedation. I had a lengthy talk with the patient's sister who is the power of lymphedema therapist for healthcare. I expressed the severity of his illness and poor prognosis in great detail. The family is deciding on a care plan. Critical care time 38 minutes
[2018-07-10] MEDS ORDERED: HYDROmorphone PF Inj 2 MG/ML Vial IV.PUSH PRN (10:00)
[2018-07-10] MEDS: Bumetanide Inj 25 MG/100 ML BAG IV.CONT SCH (11:37)
--- NOTE | 2018-07-10 14:51 | P.DS ---
Date of admission: 06/02/18 17:57 Primary care physician: No Primary Care Physician Attending physician on discharge: Andres Mccoy Brief History from admission: 53-year-old male presented to emergency department today with complaints of shortness of breath, fatigue, and extensive draining edema of the lower extremities bilaterally. Per chart review his symptoms started 5 days ago and the swelling of his lower legs and feet have progressively gotten worse over the past 5 days. The patient also has had pain in the back of both lower extremities from the knees to the toes. He denied chest pain. He has a history of type-II diabetes mellitus and congestive heart failure. He has not taken any of his regular medications for the past 3 weeks due to financial limitations. During the examination in the emergency department he was found to have gangrene of the right foot and was emergently taken to operating room for an incision and drainage with debridement of foot and ankle. Postoperatively he remains intubated and was admitted to ICU for critical care management. Patient update on day of discharge: Family decided for compassionate extubation and withdrawal of artificial support. The patient shortly thereafter at 1155 hrs. family was at the bedside. DS: Summary Hospital Course: 53-year-old male presented to emergency department today with complaints of shortness of breath, fatigue, and extensive draining edema of the lower extremities bilaterally. Per chart review his symptoms started 5 days ago and the swelling of his lower legs and feet have progressively gotten worse over the past 5 days. The patient also has had pain in the back of both lower extremities from the knees to the toes. He denied chest pain. He has a history of type-II diabetes mellitus and congestive heart failure. He has not taken any of his regular medications for the past 3 weeks due to financial limitations. During the examination in the emergency department he was found to have gangrene of the right foot and was emergently taken to operating room for an incision and drainage with debridement of foot and ankle. Postoperatively he remains intubated and was admitted to ICU for critical care management. SUBJ: s/p Incision drainage debridement foot ankle and distal leg, for gas gangrene. Remains in septic shock on Levophed. Remains intubated sedated. Currently on vancomycin and Zosyn I have added clindamycin. Cultures and wound cultures pending . Vascular surgery consult also pending. Received 2 units PRBC for hemoglobin of 5.3 06/04/18: Patient had been weaned off all pressors. Wakes up easily follows commands. 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 WBC count remains elevated but renal function improving. Hemoglobin stable. Multiple blood cultures growing E. coli. Wound culture with E. coli, MRSA, gram-negative rods. Continue Zosyn and vancomycin 06/05: Remains off vasopressors. Alert and conversant. Encephalopathy clearing. Blood and wound organisms identified, antibiotic coverage appropriate. 06/06: Normotensive. Afebrile. Urine output acceptable. Septic picture largely over. Base deficit largely corrected. Blood sugar trending higher will convert to full diabetic diet. 06/02 - 07/05: Following convalescence from sepsis patient underwent routine dressing changes and required some additional surgery for the lower extremity. He was making slow but steady process with nutrition however his albumin remained markedly reduced and he was not progressing with anabolic buildup. He continued to have some problems with lingering infection and difficulties with chronic systolic heart failure persisted. 07/06: Responded to [facility] on the fourth floor. Per nursing report patient was complaining of shortness of breath, then became unresponsive and pulseless. [facility] was activated and CPR was initiated. Upon my arrival I have immediately intubated patient with ET tube during the CPR, patient regained spontaneous circulation after approximately 4 cycles of CPR and injections of epinephrine and sodium bicarbonate and calcium. Shortly after that he became severely bradycardic with loss of pulsation again and new CPR cycle was initiated after 2 cycles of CPR and 2 injections of epinephrine sodium bicarbonate patient regained spontaneous circulation again and was transferred to intensive care unit on epinephrine drip. The central line and A-line were placed in the [facility], however patient has a signs of anoxic brain damage already, and dilated pupils at 8 mm as well as occasional myoclonic jerks. 07/07: He remains unresponsive. Vasopressor support now at 1 devonte per minute epinephrine. He is tepid but adequately perfused. Some spontaneous urine production has occurred. Acid-base balance is normal. Electrolyte levels are acceptable. Now ventilator dependent and intubated oral tracheal route. We will continue ongoing resuscitative efforts while following his electrolytes and acid-base balance. 07/08: Continues with some spontaneous urine output. Although vasopressor requirements have been reduced his underlying biventricular dysfunction and severe mitral and tricuspid regurgitation limit our ability to aggressively volume load this individual. Ultimately, his poor heart will likely dictate his prognosis. 07/09: Patient continues to deteriorate clinically. Severe left heart failure with pulmonary edema responsive to PEEP. Renal failure persists, coagulation profile prolonged due to hepatic dysfunction, EEG with diffuse slowing. Patient remains in critical condition with very little hope for meaningful recovery in the context of end-stage heart disease. 07/09: This gentleman remains in end-stage systolic heart failure, renal failure , hepatic dysfunction and is actively dying of the sequelae of a severe leg infection. He will not survive this hospitalization in the family are considering compassionate extubation and withdrawal of artificial support. I concur wholeheartedly with that plan of care as this gentleman is indeed suffering immensely from multiple chronic pain issues while on mechanical ventilation he preferred to never have. I have talked in detail with his [employer]CHNICIAN for healthcare and other family. The family is leaning toward withdrawal of artificial support and natural . - Time Spent with Patient Total time spent providing and/or coordinating discharge services: Greater than 30 minutes Exam Vital signs: Vital Signs 07/09/18 16:00 07/09/18 16:01 07/09/18 18:00 Temperature 98.2 F Pulse Rate 70 78 Respiratory Rate 12 12 Pulse Oximetry 100 07/09/18 20:00 07/09/18 20:51 07/09/18 22:00 Temperature 98.1 F Pulse Rate 73 71 Respiratory Rate 12 12 Pulse Oximetry 100 100 07/10/18 00:00 07/10/18 00:21 07/10/18 02:00 Temperature 98.2 F Pulse Rate 74 70 Respiratory Rate 12 12 Pulse Oximetry 100 100 07/10/18 04:00 07/10/18 04:22 07/10/18 06:00 Temperature 97.6 F Pulse Rate 65 63 Respiratory Rate 12 12 Pulse Oximetry 100 100 07/10/18 08:13 Temperature Pulse Rate Respiratory Rate 12 Pulse Oximetry 100 Intake & Output 07/09/18 07/10/18 07/10/18 18:59 06:59 18:59 Intake Total 4240 / 4240 2300 / 2300 757 / 757 Output Total 4515 / 4515 5075 / 5075 Balance -275 / -275 -2775 / -2775 757 / 757 Weight 93.9 kg Intake: IV 2650 / 2650 2300 / 2300 757 / 757 Bumex Inj 25 mg In 100 ml @ 0.5 100 / 100 50 / 50 MG/HR 2 mls/hr IV.CONT .Q24H [facility] Rx#:[id number] Versed Inj 50 mg In 50 ml @ 2 50 / 50 50 / 50 MG/HR 2 mls/hr IV.CONT TITRATE PRN Rx#:[id number] Sodium Bicarbonate 8.4% Inj 150 1999 / 1999 1999 / 1999 707 / 707 MEQ In Sterile Water for Inj 850 ML @ 150 mls/hr IV.CONT . Q6H40M [facility] Rx#:[id number] Buminate 5% Inj 250 ML @ 250 250 / 250 250 / 250 mls/hr IV.SIG Q12H [facility] Rx#: [id number] fentaNYL 10 mcg/mL Premix Drip 250 / 250 2,500 mcg In 250 ml @ 50 MCG/HR 5 mls/hr IV.SIG TITRATE PRN Rx #:[id number] Oral 0 / 0 Tube Feeding 870 / 870 Water Bolus Amount 170 / 170 Other 550 / 550 Output: Urine Amount (Catheter) 3575 / 3575 4225 / 4225 Indwelling Urethral Catheter 3575 / 3575 4225 / 4225 Chest Tube Drainage 940 / 940 850 / 850 Right 940 / 940 850 / 850 Other: Other Intake Source Saline Solution Date of Last Bowel Movement 07/09/18 07/10/18 07/10/18 # Bowel Movements 1 3 Narrative: . Results Procedures completed during hospitalization: DATE OF OPERATION: 06/24/2018 PREOPERATIVE DIAGNOSIS: Gangrene of the right leg, status post right below-knee guillotine amputation, revision amputation and irrigation with wound VACs. POSTOPERATIVE DIAGNOSIS: Gangrene of the right leg, status post right below-knee guillotine amputation, revision amputation and irrigation with wound VACs. PROCEDURE PERFORMED: Second revision of the amputation and final closure of the posterior flap. SURGEON: Daniel Dexter MD. ANESTHESIA: General. ESTIMATED BLOOD LOSS: 50 mL. DESCRIPTION OF PROCEDURE: The patient was prepped and draped in usual fashion. The wound VAC was removed. The wound was not examined. Posterior flap had been created last time, but could not be closed due to persistent purulent infection. At this point, there is no sign of infection. The entire flap was washed out with pulsatile lavage aggressively, going all the way up behind the medial gastrocnemius and the whole area. This was done with about 3 liters of saline. Once this was completed, flap was re-tailored. First of all, another 1-1/2 inch of tibia was resected using the oscillating saw by the intrafibula. Meticulous hemostasis assured. The bone was rasped down and then a posterior flap was addressed. At this point, edematous, thickened, and clearly cannot be closed, therefore, some of the muscle was now shaved off with an amputation knife, and meticulous hemostasis obtained. This allowed for flexing the flap forward and closure. The flap was now sutured with 0 Vicryl deep layer of fascia at the fascia, and skin was closed with 2-0 Prolene. Dressing applied. The patient tolerated the procedure well. MD RACHID Marin/mahin , 01:07 PM Completed studies during hospitalization: Pending at discharge 06/02/18 07:38 Surgical [PTH] Routine 06/03/18 09:35 Surgical [PTH] Routine 06/17/18 13:27 Surgical [PTH] Routine Labs on day of discharge: Labs from last 24 hours 07/10/18 07/09/18 07/09/18 03:57 22:53 16:25 Sodium 142 Potassium 3.5 Chloride 96 L Carbon Dioxide 38.2 H Anion Gap 8 BUN 73 H Creatinine 2.26 H Estimated GFR 31 L POC Glucose 97 88 Random Glucose 96 Calcium 5.9 L* Prot Corrected Calcium 7.1 L* Total Protein 4.5 L Ur Collection Type Urine Color Urine Clarity Urine pH Ur Specific Moffit Urine Protein Urine Glucose (UA) Urine Ketones Urine Occult Blood Urine Nitrate Urine Bilirubin Urine Ictotest Urine Urobilinogen Ur Leukocyte Esterase Urine RBC Urine WBC Urine WBC Clumps Ur Squamous Epith Cells Ur Transition Epith Cell Ur Renal Epithelial Cell Calcium Carbonate Cryst Calcium Oxalate Crystal Leucine Crystals Cystine Crystals Uric Acid Crystals Triple Phos Crystals Cholesterol Crystals Tyrosine Crystals Amorphous Sediment Urine Bacteria Hyaline Casts Granular Casts Fine Granular Casts Coarse Granular Casts Waxy Casts RBC Casts WBC Casts Urine Mucus Urine Trichomonas Urine Yeast Ur Yeast w Hyphae Urine Sperm Ur Oval Fat Bodies Micro UA Comment Ur Microscopic Review Urine Culture Comments Urine Collection Time Urine Comment 07/06/18 00:00 Sodium Potassium Chloride Carbon Dioxide Anion Gap BUN Creatinine Estimated GFR POC Glucose Random Glucose Calcium Prot Corrected Calcium Total Protein Ur Collection Type Cancelled Urine Color Cancelled Urine Clarity Cancelled Urine pH Cancelled Ur Specific M[place] Cancelled Urine Protein Cancelled Urine Glucose (UA) Cancelled Urine Ketones Cancelled Urine Occult Blood Cancelled Urine Nitrate Cancelled Urine Bilirubin Cancelled Urine Ictotest Cancelled Urine Urobilinogen Cancelled Ur Leukocyte Esterase Cancelled Urine RBC Cancelled Urine WBC Cancelled Urine WBC Clumps Cancelled Ur Squamous Epith Cells Cancelled Ur Transition Epith Cell Cancelled Ur Renal Epithelial Cell Cancelled Calcium Carbonate Cryst Cancelled Calcium Oxalate Crystal Cancelled Leucine Crystals Cancelled Cystine Crystals Cancelled Uric Acid Crystals Cancelled Triple Phos Crystals Cancelled Cholesterol Crystals Cancelled Tyrosine Crystals Cancelled Amorphous Sediment Cancelled Urine Bacteria Cancelled Hyaline Casts Cancelled Granular Casts Cancelled Fine Granular Casts Cancelled Coarse Granular Casts Cancelled Waxy Casts Cancelled RBC Casts Cancelled WBC Casts Cancelled Urine Mucus Cancelled Urine Trichomonas Cancelled Urine Yeast Cancelled Ur Yeast w Hyphae Cancelled Urine Sperm Cancelled Ur Oval Fat Bodies Cancelled Micro UA Comment Cancelled Ur Microscopic Review Cancelled Urine Culture Comments Cancelled Urine Collection Time Cancelled Urine Comment Cancelled Preliminary micro results at discharge 06/17/18 12:07 Fungal Culture - Preliminary Wound - Leg No growth in 3 weeks 06/17/18 12:07 Mycobacterial Culture - Preliminary Wound - Leg No growth in 3 weeks 06/02/18 18:48 Mycobacterial Culture - Preliminary Wound - Foot No growth in 5 weeks - Impressions ITS Impressions Venous Doppler Study 06/02/18 15:46 CONCLUSION: 1. No sonographic evidence of lower extremity DVT. 2. Bilateral lower extremity subcutaneous edema. 3. Multiple lymph nodes seen in both groins, some of which are abnormally enlarged. Recommend clinical correlation. Foot X-Ray 06/02/18 15:52 CONCLUSION: Extensive subcutaneous air. No bone fracture or dislocation Abdomen/Bladder Ultrasound 07/05/18 00:00 CONCLUSION: 1. Increased cortical echogenicity in both kidneys suggesting medical renal disease 2. Multiple nonobstructing calculi in the collecting system of the right kidney. The largest in the midpole measures 5 mm. 3. There appear to be 2 renal cortical cyst in the left kidney, one in the upper pole and the larger, 1.7 cm lesion in the lower pole. 4. Lateral to the left kidney, there is a hypoechoic but heterogeneous 6.7 x 4.0 x 3.8 cm lesion which appears to be discrete from the kidney itself. This area contains internal vascularity and is concerning for a possible mass lesion. CT scan of the abdomen with IV and oral contrast is recommended for further characterization. 5. Urinary bladder is decompressed with a Walters catheter. Chest X-Ray 07/07/18 06:02 CONCLUSION: Suspected bilateral pleural effusions being worse on the right. Increased density in the mid and lower lungs likely related to atelectasis or consolidation in these regions. Cardiomegaly. Discharge Plan - Discharge Disposition Patient Disposition: 20 - Discharge Details Date/Time: 07/10/18 14:15 - Physicians Team Primary Care Provider: Primary Care Chastity Ledesma Attending Provider: Omari Noguera Other Providers: Jose M Kiser DPM ; Jean Dexter MD ; Jackie Mosley MD ; Janet Burns MD ; Tammy Hernandez MD ; Josr Cheema MD ; Omari Noguera MD ; Maxime Garcia MD
== END 2018-07-10 14:15 | disposition expired ==
LOC: NEPE 13:55 → NEDA 17:57 → N03 20:00 → N04 06-09 13:09 → N03 07-06 23:27
PROVIDERS: ADMIT Internal Medicine Critical Care Medicine; ATTEND Internal Medicine Critical Care Medicine